=== PATIENT | female | born 1950 | race Caucasian/White ===

== ENCOUNTER 2016-11-14 17:28 | Inpatient (IN) | payer MEDICARE ==
[~2016-11-14] VITALS: Ht 160 cm; Wt 172.4 kg
[~2016-11-14 17:28] MED LIST: AGGRENOX 200/251 CAP PO; AMITRIPTYLINE150 MG PO; ASPIRIN325 MG PO; ATIVAN0.5 MG PO; BACTRIM DS TABL1 TAB; BOUDREAUXS113 GM TP; CARAFATE1 G PO; CELEXA10 MG PO; CHRONULAC30 ML PO; CINNAMON500 MG CV; CINNAMON500 MG PO; COLACE100 MG PO; CORTISPORIN OTI10 M1 RIGHT EAR; DEMADEX20 MG PO; DOXYCYCLINE HY100 M2 PO; DULCOLAX10 MG/SUPP RC; EUCERIN CREAM; FERREX 150 PLUS1 CAP PO; FLORASTOR250 MG PO; FLUTICASONE PRO16 GM NASAL; HUMALOG 30100 UNITS/; HYDROCODONE-APA1 TAB PO; INDERAL10 MG PO; INVANZ1 G/VIAL IV; IPRAT-ALBUT 0.5-3 ML UPD; LASIX40 MG PO; LEVAQUIN250 MG PO; LEVAQUIN500 MG PO; LOTRISONE CREAM45 GM TP; LOVENOX30 MG/0.3 SQ; LYRICA PO; LYRICA50 MG PO; MACROBID100 MG PO; MAXIPIME 1 GM/D51 G1 IV; MEDROL DOSE PACK4 MG PO; MINERAL OIL; MIRALAX17 GM PO; NITROFUR PO; NORCO 10/325 TA1 TA1 PO; NORVASC5 MG PO; ONDANSETRON4 MG/2 M3 IV; OXYBUTYNIN CHLOR5 MG PO; PEPCID20 MG PO; PERCOCET 10/3251 TA1 PO; PERSANTINE50 MG PO; PETROLAT; PHENERGAN25 MG RC; PRAVACHOL40 MG PO; PRILOSEC10 M1 PO; PRILOSEC20 MG PO; PROTONIX 40 MG40 MG IV; PROTONIX40 MG PO; ROBAXIN500 MG PO; ROCEPHIN 1 GM IN1 GM IM; ROCEPHIN 1 GM IN1 GM IV; ROCEPHIN 1 GM/D51 G1 IV; SENOKOT-S TABLE1 TAB PO; SODIUM BICARBO650 MG PO; SODIUM CL 0.91000 ML IV; TINDAMAX250 MG PO; TRAZODONE HCL50 MG PO; TRILEPTAL300 MG PO; TRIMETHOPRIM100 MG PO; TYLENOL 325 MG325 MG PO; VIBRAMYCIN 100100 MG PO; VITAMIN B-1000 MCG/M IM; VITAMIN B-121000 MCG SL; VITAMIN D50000 UNIT PO; ZANAFLEX4 MG PO; ZANTAC150 MG; ZANTAC150 MG PO; ZEMPLAR2 MCG PO; ZOCOR80 MG PO; ZOFRAN ODT4 MG/UDTAB PO; ZOVIRAX 5% CREAM5 GM TP; ZYLOPRIM300 MG PO; [UNRECOGNIZED DRUG - OTHER]; [UNRECOGNIZED DRUG - OTHER] RIGHT EAR
[2016-11-14 18:49] VITALS: BP 144/70; BMI 67.4
[2016-11-14 20:00] VITALS: BP 137/79
--- NOTE | 2016-11-14 20:00 | NUR ---
PT IS RESTING IN BED WITH EYES OPEN. ALERT AND ORIENTED X 4. VOICED COMPLAINT OF BACK PAIN LEVEL OF 4 AT THIS TIME. VSS. LEON CATH IS PATENT AND DRAINING TO A GRAVITY BAG. SR'S ARE UP X2 IN BED. CALL LIGHT AND BEDSIDE TABLE ARE WITHIN EASY REACH.
--- NOTE | 2016-11-14 22:29 | NUR ---
PT IS RESTING QUIETLY IN BED WITH EYES CLOSED. RESPS ARE EVEN AND UNLABORED. NO ACUTE DISTRESS NOTED.
--- NOTE | 2016-11-15 00:40 | NUR ---
RESTING IN BED WITH EYES CLOSED.
--- NOTE | 2016-11-15 04:17 | NUR ---
pt resting quietly with eyes closed, respirations regular and unlabored, hob slightly elevated. earlier this am, pt was watching tv, smiles easily, states 'can't go to sleep'
--- NOTE | 2016-11-15 05:50 | NUR ---
PT RESTING IN BED WITH EYES CLOSED. AWOKE EASILY TO VERBAL STIMULI. TOLERATED AM MED WITHOUT DIFFICULTY. NO NEEDS VOICED.
--- NOTE | 2016-11-15 07:08 | NUR ---
RESTING QUIETLY IN BED. CALL LIGHT IN REACH
[2016-11-15 08:00] VITALS: BP 164/64
--- NOTE | 2016-11-15 08:55 | NUR ---
PATIENT IN REHAB ROOM. WORKING WITH PHYSICAL THEAPIST. C/O OF BACK PAIN. PRN PAIN MEDICATION GIVEN.
[2016-11-15 09:10] LABS: BASOPHILS 0.6 % (0.0-2.0); HEMATOCRIT 31.8 % (36.0-48.0); HEMOGLOBIN 9.6 g/dL (12-16); IMMATURE GRANULOCYTES 0.7 % (0-5); LYMPHOCYTES 21.6 % (15-50); MCH 29.1 pg (26.0-34.0); MCHC 30.2 g/dL (31.0-37.0); MCV 96.4 fL (80.0-100.0); MEAN PLATELET VOLUME 10.2 fL (7.4-10.4); MONOCYTES 6.5 % (2-11); NEUTROPHILS 65.6 % (40-80); PLATELET COUNT 304 10x3/uL (130-400); RDW 15.7 % (11.5-14.5); WBC 7.1 10x3/uL (4.8-10.8)
[2016-11-15 09:15] LABS: ANION GAP 13.9 mmol/L (8-16); CALCIUM 9.8 mg/dL (8.5-10.1); CARBON DIOXIDE 22.8 mmol/L (21.0-32.0); CREATININE - SERUM 2.5 mg/dL (0.6-1.3); POTASSIUM - SERUM 3.7 mmol/L (3.5-5.1)
[2016-11-15 09:30] VITALS: Ht 160 cm; Wt 172.4 kg
--- NOTE | 2016-11-15 10:00 | NUR ---
PATIENT DOWN IN REHAB ROOM. WORKING WITH PHYSICAL THERAPIST.
--- NOTE | 2016-11-15 13:00 | NUR ---
ROCEPIN IV STARTED IN LEFT HAND PHERIAL LINE.
--- NOTE | 2016-11-15 14:15 | NUR ---
PATIENT USES WHEELCHAIR TO GET AROUND. DOES NOT WALK. IS ABLE TO TRANSFER SELF FROM WHEELCHAIR INTO BED BY SELF
--- NOTE | 2016-11-15 18:29 | NUR ---
LEON CATH EMPTIED. 17,0OOCC OF STRAW YELLOW IN CATH BAG.
--- NOTE | 2016-11-15 19:30 | NUR ---
PT IS RESTING IN BED WITH EYES CLOSED. AWOKE EASILY TO VERBAL STIMULI. ALERT AND ORIENTED X 4. DENIES ACUTE DISCOMFORT. LEON CATH IS PATENT AND DRAINING TO A GRAVITY BAG. SR'S ARE UP X 2 IN BED. CALL LIGHT AND BEDSIDE TABLE ARE WITHIN EASY REACH.
[2016-11-15 20:00] VITALS: BP 138/81
--- NOTE | 2016-11-15 20:50 | NUR ---
PT. IN BED WITH HOB UP FOR COMFORT LYING ON HER BACK WITH HER EYES CLOSED AND RESP. EVEN. CALL LIGHT IS WITHIN REACH.
--- NOTE | 2016-11-15 21:35 | NUR ---
PT IS RESTING QUIETLY IN BED WITH EYES CLOSED. RESPS ARE EVEN AND UNLABORED. NO ACUTE DISTRESS NOTED.
--- NOTE | 2016-11-16 01:20 | NUR ---
PT RESTING IN BED WITH EYES OPEN. STATES SHE ROLLED OVER, AND HER SALINE LOCK CAME OUT. NO BLEEDING NOTED.
--- NOTE | 2016-11-16 03:00 | NUR ---
RESTING IN BED WITH EYES CLOSED.
--- NOTE | 2016-11-16 07:56 | NUR ---
PATIENT AWAKE AND ORIENT X4. CALL LIGHT WITHIN REACH. VOICES NO NEEDS AT THIS TIME. BREAKFAST TRAY SET UP IN FRONT ON PATIENT
[2016-11-16 08:00] VITALS: BP 126/58
--- NOTE | 2016-11-16 10:30 | NUR ---
PATIENT RESTING IN BED WATCHING T.V. LEON CATH INTACT. PATENT. DRAINING STRAW YELLOW URINE.
--- NOTE | 2016-11-16 12:00 | NUR ---
PATIENT STATED SHE CAN NOT EAT HERE LUNCH. MEAT IS TOO HARD. PATIENT HAS MULTIPLE MISSING TEETH. ORDER PUT IN FOR TURKEY AND DRESSING. ON A RENAL DIET
--- NOTE | 2016-11-16 13:27 | NUR ---
SITTING UP IN THE BED. CALL FOR ASSISTANCE AND ICE WATER GIVEN.
--- NOTE | 2016-11-16 15:50 | NUR ---
RESTING ON BACK IN BED WITH SIDERAILS UP X2.
--- NOTE | 2016-11-16 17:09 | NUR ---
RESTING IN BED WITHOUT ANY NEEDS VOICED.
[2016-11-16 19:00] VITALS: BP 110/78
--- NOTE | 2016-11-16 19:15 | NUR ---
PT. IN BED LYING ON HER LEFT SIDE. ASSESSMENT COMPLETED. PT. C/O BACK PAIN AND REQUESTING PAIN MEDICATION. NORCO ADMINISTERED FOR RELIEF. PT. HAS NO OTHER NEEDS AT THIS TIME. CALL LIGHT WITHIN REACH.
--- NOTE | 2016-11-16 23:50 | NUR ---
PT. IN BED WITH HOB UP FOR COMFORT WITH EYES CLOSED AND RESP. EVEN. CALL LIGHT WITHIN REACH. CAROLYN TO BSD WITHOUT PROBLEMS.
[2016-11-17 06:27] LABS: BASOPHILS 0.7 % (0.0-2.0); EOSINOPHILS 5.2 % (0-7); HEMATOCRIT 29.3 % (36.0-48.0); HEMOGLOBIN 8.8 g/dL (12-16); IMMATURE GRANULOCYTES 1.2 % (0-5); LYMPHOCYTES 27.2 % (15-50); MCH 28.6 pg (26.0-34.0); MCV 95.1 fL (80.0-100.0); MEAN PLATELET VOLUME 10.3 fL (7.4-10.4); MONOCYTES 8.2 % (2-11); NEUTROPHILS 57.5 % (40-80); PLATELET COUNT 290 10x3/uL (130-400); RBC 3.08 10x6/uL (4.00-5.40); RDW 15.6 % (11.5-14.5); WBC 6.7 10x3/uL (4.8-10.8)
[2016-11-17 06:47] LABS: ANION GAP 14.4 mmol/L (8-16); CALCIUM 9.5 mg/dL (8.5-10.1); CARBON DIOXIDE 24.4 mmol/L (21.0-32.0); CREATININE - SERUM 2.7 mg/dL (0.6-1.3); POTASSIUM - SERUM 3.8 mmol/L (3.5-5.1)
[2016-11-17 10:18] VITALS: BP 138/53
--- NOTE | 2016-11-17 10:50 | NUR ---
Pt. was received at the beginning of this shift in bed awake and oriented x 3. Vital signs: Temp. 97.8, pulse 59, resp. 14, b/p 138/53, 02sat. 98%. Pt. denies any pain or discomfort. Bartlett catheter patent and draining clear yellow urine to gravity. Will be monitoring pt. and assisting prn with adl's.
--- NOTE | 2016-11-17 18:24 | NUR ---
Pt. has had an uneventful day. She went to therapy today and worked very well with the staff. No voiced complaints of pain or discomfort.
--- NOTE | 2016-11-17 19:41 | NUR ---
PT IS RESTING IN BED WITH EYES CLOSED. AWOKE EASILY TO VERBAL STIMULI. ALERT AND ORIENTED X 4. DENIES ACUTE DISCOMFORT AT THIS TIME. SR'S ARE UP X 2 IN BED. CALL LIGHT AND BEDSIDE TABLE ARE WITHIN EASY REACH.
[2016-11-17 21:08] VITALS: BP 118/63
--- NOTE | 2016-11-17 22:12 | NUR ---
PT RESTING IN BED WITH EYES CLOSED. NO DISTRESS NOTED.
--- NOTE | 2016-11-17 23:49 | NUR ---
PT IS RESTING IN BED WITH EYES CLOSED.
--- NOTE | 2016-11-18 02:24 | NUR ---
PT RESTING IN BED WITH EYES CLOSED.
--- NOTE | 2016-11-18 05:47 | NUR ---
PT RESTING QUIETLY, NO S/S OF ACUTE DISTRESS, WHEN AWAKE PATIENT IS CONVERSIVE. RESPIRATIONS REGULAR AND UNLABORED.
--- NOTE | 2016-11-18 07:00 | NUR ---
Pt. was received in bed awake and oriented x 3 at the beginning of this shift. Stable condition observed. No voiced complaints or signs of discomfort or distress. Vital signs: Temp. 97.8, pulse 57, resp. 16, b/p 123/73, 02Sat. 99%. Call light in reach. Will be monitoring her throughout this shift and assisting with adl's.
[2016-11-18 08:38] VITALS: BP 123/72
[2016-11-18 19:00] VITALS: BP 161/64
--- NOTE | 2016-11-18 20:00 | NUR ---
PT IS RESTING IN BED WATCHING TV. ALERT AND ORIENTED X 4. DENIES ACUTE PAIN OR DISCOMFORT. VSS. NO NEEDS VOICED. LEON CATH IS PATENT AND DRAINING TO A GRAVITY BAG. SR'S ARE UP X2 IN BED. CALL LIGHT AND BEDSIDE TABLE ARE WITHIN EASY REACH.
--- NOTE | 2016-11-18 22:01 | NUR ---
PT ASSISTED WITH A SHOWER BY ACCESS SPECIALIST. NO NEEDS VOICED.
--- NOTE | 2016-11-19 00:21 | NUR ---
RESTING IN BED WITH EYES CLOSED.
--- NOTE | 2016-11-19 02:59 | NUR ---
RESTING QUIETLY IN BED WITH EYES CLOSED.
--- NOTE | 2016-11-19 03:56 | NUR ---
PT RESTING QUIETLY, NO S/S OF ACUTE DISTRESS. RESPIRATIONS REGULAR AND UNLABORED.
[2016-11-19 06:59] LABS: BASOPHILS 0.6 % (0.0-2.0); EOSINOPHILS 5.5 % (0-7); HEMATOCRIT 28.5 % (36.0-48.0); HEMOGLOBIN 8.7 g/dL (12-16); IMMATURE GRANULOCYTES 1.1 % (0-5); LYMPHOCYTES 28.6 % (15-50); MCH 28.9 pg (26.0-34.0); MCHC 30.5 g/dL (31.0-37.0); MCV 94.7 fL (80.0-100.0); MEAN PLATELET VOLUME 10.4 fL (7.4-10.4); MONOCYTES 9.6 % (2-11); NEUTROPHILS 54.6 % (40-80); PLATELET COUNT 285 10x3/uL (130-400); RBC 3.01 10x6/uL (4.00-5.40); RDW 15.6 % (11.5-14.5); WBC 6.2 10x3/uL (4.8-10.8)
[2016-11-19 07:22] LABS: ANION GAP 13.6 mmol/L (8-16); CALCIUM 9.3 mg/dL (8.5-10.1); CARBON DIOXIDE 26.1 mmol/L (21.0-32.0); CREATININE - SERUM 2.8 mg/dL (0.6-1.3); POTASSIUM - SERUM 3.7 mmol/L (3.5-5.1)
--- NOTE | 2016-11-19 07:28 | NUR ---
RESTING QUIETLY IN BED. CALL LIGHT IN REACH
[2016-11-19 08:15] VITALS: BP 116/62
--- NOTE | 2016-11-19 08:15 | NUR ---
PT RESTING IN BED WITH EYES OPEN CALL LIGHT IN REACH PT EATING BREAKFAST
--- NOTE | 2016-11-19 16:34 | RHP ---
PATIENT: JAMIE BELL MEDICAL RECORD: [id number] ACCOUNT: [id number] LOCATION:[facility]1113 : 46 ADMISSION DATE: 11/14/16 REHABILITATION HISTORY AND PHYSICAL EXAMINATION POST ADMISSION PHYSICIAN EXAMINATION Post-admission Physical Exam and History and Physical DATE OF ADMISSION: 11/14/2016 HISTORY OF PRESENT ILLNESS: The patient is a 66-year-old female patient admitted to rehab with a working diagnosis uremic myopathy, acute kidney injury with chronic kidney stage IV kidney disease. The patient is a 66-year-old female patient who was brought to the inpatient rehab secondary to uremic myopathy. She is a morbidly obese white female who was brought to the ED and was admitted on November 08 with acute mental status changes and fever. She has a history of urinary retention and chronic Bartlett. The Bartlett had purulent urine and sediment debris. The Bartlett was changed out and urine culture was collected. She was admitted with acute mental status changes, UTI and acute kidney injury on chronic kidney injury. ____ history includes hypertension, CHF, and coronary artery disease. Her creatinine upon admit was 4.4, baseline is around to ____. She was on torsemide at home. On exam, the patient was very lethargic and difficult to arouse. CT of her head showed no acute findings. Chest x-ray showed mild cardiomegaly and central vascular congestion and interstitial prominence suggesting mild congestive heart failure. Urine culture was positive for E. coli resistant to Levaquin, but sensitive to Rocephin. Blood cultures grew out Gram-positive rods with sensitivity pending. Her creatinine was down, but not at baseline. She is back on her baseline as far as mental status goes. Prior to admit, she was moderately independent with rolling walker at home for mobility and ADLs. Currently, she is moderate to max assist for ADLs and mobility. She has weakness in all extremities and difficulty going from a sitting to a standing position or from a bed to a chair, definitely will benefit from inpatient rehabilitation. COMORBIDITIES: In this patient include chronic kidney stage IV disease, acute kidney injury, left kidney hydronephrosis, acute mental status changes, neuropathy, bradycardia, CHF, history of MO, pyelonephritis, chest pain, coronary artery disease, non-insulin dependent diabetes mellitus, anemia due to chronic disease, fibromyalgia, anxiety, depression, and obesity. PAST MEDICAL HISTORY: Significant for chronic UTIs, chronic kidney disease, coronary artery disease, non-insulin dependent diabetes mellitus, CHF, fibromyalgia, anxiety, depression and obesity. PAST SURGICAL HISTORY: Includes cataracts, appendectomy, cholecystectomy, hysterectomy, PTCA with stents. ALLERGIES: PENICILLIN AND CLONIDINE. CURRENT MEDICATIONS: Include ____ daily. She is on Rocephin a gram q.24 hours, Protonix 40 mg daily, Niferex daily, torsemide 20 mg daily, Zemplar 1 mcg daily. She is on oxybutynin 5 mg daily. She is on Colace 100 mg daily, citalopram 20 mg daily, amlodipine 5 mg daily, allopurinol 300 mg daily, trazodone 25 mg q.h.s., tizanidine 4 mg b.i.d. p.r.n. spasms, Inderal 10 mg b.i.d., Lyrica 75 mg b.i.d., Pravachol 40 mg at bedtime, Trileptal 300 mg b.i.d. She is on lactulose HISTORY AND PHYSICAL [id number] BELL,JAMIE solution daily, DuoNeb updrafts as needed, Brule 1 tab q.i.d. p.r.n., Pepcid 20 mg q.h.s., aspirin/dipyridamole or Aggrenox 1 cap b.i.d. and acetaminophen as needed for fever. HABITS: No alcohol or tobacco use. FAMILY HISTORY: Noncontributory. SOCIAL HISTORY: The patient would like to return back home and get back to her prior level of functioning if possible. REVIEW OF SYSTEMS: GENERAL: Does complain of weakness and fatigue. HEENT: Denies cold, cough, or congestion. CARDIOVASCULAR: Denies chest pain. PHYSICAL EXAMINATION: VITAL SIGNS: Stable, afebrile. GENERAL: Morbidly obese female in no acute distress, alert upon exam. HEENT: Normocephalic and atraumatic. Mucosa moist. NECK: Supple. No lymphadenopathy. LUNGS: Clear, although she does have decreased breath sounds. HEART: Regular rate and rhythm. ABDOMEN: Benign. EXTREMITIES: No clubbing, cyanosis or edema. NEUROLOGIC: Intact. LABORATORY DATA: Her white count is 7.0, H&H of 10 and 31 and platelet count is noted to be 304. Sodium is 140, potassium 3.7, BUN and creatinine of 37 and 2.5. ASSESSMENT: This is a 66-year-old female patient admitted to rehab with a working diagnosis of uremic myopathy. The patient has potential to make improvement. We instituted the following multidisciplinary therapies including to, but not limited to physical, occupational, respiratory, speech, nutritional services, prosthetics and orthotics. Given her complex condition and risk for more complications, rehabilitation services cannot be provided at a low level of care such as a custodial facility. PLAN: 1. Admit to [facility] rehab for intensive inpatient therapy to include the following disciplines: A. Physical therapy to improve gait, all transfer skills and bed mobility to a modified independent level. B. Occupational therapy to improve activities of daily living to a modified independent level. C. Case management to assist with discharge planning and placement options. D. Nutrition to assist with nutritional needs. E. Rehabilitation nursing to assist in monitoring the patient's underlying medical conditions and to assist with any type of bowel or bladder management. 2. The patient's current medication and medical care will be continued. 3. The patient will be placed on standard fall precautions. 4. The patient's estimated length of stay is approximately 7-10 days. 5. Discuss this patient during care team staff meeting this week. HISTORY AND PHYSICAL [id number] JAMIE BELL TRANSINT:[id number] Voice Confirmation ID: [id number] DOCUMENT ID: [id number] JONATHAN ALMAZAN MD at 1634 CC: [id number] DICTATION DATE: 11/15/16 1411 PEDIATRIC PSYCHOLOGIST: 11/15/16 1503 ADM IN [facility] [address] [id number]
--- NOTE | 2016-11-19 17:02 | NUR ---
PT RESTING IN BED WITH EYES OPEN CALL LIGHT IN REACH WILL MONITER
--- NOTE | 2016-11-19 17:12 | NUR ---
CARE TEAM MEETING: PATIENT TENATIVE DISCHARGE DATE IS 12/01/16. PCP IS DR. SHORT, SHE USSES VIKTOR WILSON FOR HOME ASSIST. HAS SHOWER CHAIR, WALKER AND WHEELCHAIR. WILL CONTINUE TO FOLLOW WITH PATIENT UNTIL DISCHARGED
[2016-11-19 19:00] VITALS: BP 148/55
--- NOTE | 2016-11-19 19:10 | NUR ---
PATIENT IN BED, RESTING QUIETLY, EYES CLOSED.
--- NOTE | 2016-11-19 21:45 | NUR ---
ASSESSMENT AND HS MEDS COMPLETE.
--- NOTE | 2016-11-19 22:40 | NUR ---
BED ALARM GOING OFF, THIS RN TO ROOM, PT IS SITTING ON SIDE OF BED, PT STATES "I HAVE A CRAMP IN MY LEG", PT IS RUBBING RIGHT LEG, PT LAID BACK DOWN IN BED, REQUESTED AND APPLIED BUTT PASTE TO BOTH LEGS, PT DENIES FURTHER NEEDS AT THIS TIME, BED ALARM BACK ON
--- NOTE | 2016-11-19 23:05 | NUR ---
PT IMAGING CENTER MANAGER LIGHT, ADM NORCO PO PER MD ORDERS, SEE EMAR, PT DENIES FURTHER NEEDS
--- NOTE | 2016-11-20 00:16 | NUR ---
PT RESTING WITH EYES CLOSED, RESP QUIET, NO DISTRESS NOTED, LEFT UNDISTURBED AT THIS TIME
--- NOTE | 2016-11-20 02:03 | NUR ---
PT RESTING WITH EYES CLOSED, RESP QUIET, NO DISTRESS NOTED, LEFT UNDISTURBED AT THIS TIME
--- NOTE | 2016-11-20 04:14 | NUR ---
PT RESTING WITH EYES CLOSED, RESP QUIET, NO DISTRESS NOTED, LEFT UNDISTURBED AT THIS TIME
--- NOTE | 2016-11-20 06:03 | NUR ---
PT RESTING WITH EYES CLOSED, AROUSES TO SOFT VERBAL STIMULATION, ADM PROTONIX PO PER MD ORDERS, SEE EMAR, PT REQUESTED AND SERVED [facility] H20, PT DENIES FURTHER NEEDS OR PAIN AT THIS TIME
--- NOTE | 2016-11-20 07:00 | NUR ---
SHIFT REPORT TO DAY SHIFT
[2016-11-20 09:00] VITALS: BP 131/56
--- NOTE | 2016-11-20 09:36 | NUR ---
SITTING IN BED READING THE PAPER.
--- NOTE | 2016-11-20 11:21 | NUR ---
SITTING IN WHEELCHAIR WORKING WITH THERAPY.
--- NOTE | 2016-11-20 13:34 | NUR ---
SITTING IN WHEELCHAIR IN THE GYM WORKING W THERAPY.
--- NOTE | 2016-11-20 13:53 | NUR ---
Nutrition Follow Up: Chart reviewed. Diet: Renal PO Intake: 91% (9 meal avg) No new wt No BM recorded since admit I<O Meds: Demadex Labs noted Pt with excellent po intake at this time. Rec continue current diet. RD following.
--- NOTE | 2016-11-20 15:48 | NUR ---
SITTING IN WHEELCHAIR IN ROOM WITH CALLIGHT IN REACH.
--- NOTE | 2016-11-20 17:48 | NUR ---
SITTING IN WHEELCHAIR WITHOUT ANY NEEDS VOICED.
--- NOTE | 2016-11-20 19:30 | NUR ---
PT RESTING, EYES CLOSED. BED LOW. CL INREACH. WCTM.
[2016-11-20 19:42] VITALS: BP 136/54
--- NOTE | 2016-11-20 21:58 | NUR ---
PT TOOK HS MEDS WITHOUT DIFFICULTY. PT DENIES FURTHUR NEEDS AT THIS TIME. BED LOW. CL IN REACH. WCTM.
--- NOTE | 2016-11-20 23:41 | NUR ---
PT RESTING, EYES CLOSED. BED LOW. CL IN REACH. WCTM
--- NOTE | 2016-11-21 01:15 | NUR ---
PT. SUMMONDED NURSE TO ROOM DUE TO HER THROWING UP HER DINNER ALL OVER THE SIDE OF THE BED AND FLOOR. PT. CLEANSED UP AND FRESH BEDCLOTHING AND LINENS CHANGED. FLOOR AND LEON BAG CLEANED UP. PT'S NURSE INFORMED OF SITUATION. PT. HAS NO RX ORDERED FOR N/S. NOTE LEFT FOR MD TO ADDRESS NEED.
--- NOTE | 2016-11-21 02:43 | NUR ---
PT STILL C/O NAUSEA. PT STATES SHE HAS NOT THROWN UP ANYMORE. WCTM. BED LOW. CL IN REACH.
--- NOTE | 2016-11-21 04:01 | NUR ---
PT RESTING, EYES CLOSED. BED LOW. CLIN REACH. WCTM.
--- NOTE | 2016-11-21 06:49 | NUR ---
PT STATES SHE HAS HAD NO MORE VOMITING BUT STILL FEELS NAUSEAUS. WILL PASS ON TO DAY NURSE AND NOTE LEFT FOR DR ALMAZAN. CL IN REACH. BED LOW.
[2016-11-21 07:03] LABS: MCH 30.9 pg (26.0-34.0); MCV 96.6 fL (80.0-100.0); MEAN PLATELET VOLUME 9.9 fL (7.4-10.4); PLATELET COUNT 256 10x3/uL (130-400); RDW 12.4 % (11.5-14.5)
[2016-11-21 08:23] LABS: ANION GAP 13.3 mmol/L (8-16); CALCIUM 9.3 mg/dL (8.5-10.1); CREATININE - SERUM 3.4 mg/dL (0.6-1.3)
[2016-11-21 08:25] LABS: HEMOGLOBIN 9.1 g/dL (12-16); RBC 3.14 10x6/uL (4.00-5.40); WBC 9.8 10x3/uL (4.8-10.8)
[2016-11-21 08:26] LABS: LYMPHOCYTES 13.1 % (15-50); MONOCYTES 5.1 % (2-11); NEUTROPHILS 77.6 % (40-80); POTASSIUM - SERUM 4.3 mmol/L (3.5-5.1)
[2016-11-21 08:27] LABS: BASOPHILS 0.1 % (0.0-2.0); EOSINOPHILS 3.8 % (0-7); IMMATURE GRANULOCYTES 0.3 % (0-5)
--- NOTE | 2016-11-21 09:15 | NUR ---
PT VOMITED UP UNDIGESTED FOOD. PRN ZOFRAN GIVEN. INCONTINENT OF LG SOF BROWN STOOL. CALLIGHT IN REACH.
--- NOTE | 2016-11-21 11:35 | NUR ---
SITTING IN BED AND NO NAUSEA AND VOMITING NOTED.
[2016-11-21 12:17] VITALS: BP 140/52
--- NOTE | 2016-11-21 15:37 | NUR ---
RESTING IN BED AND INCONTINENT OF LOOSE BROWN STOOL.
--- NOTE | 2016-11-21 17:02 | NUR ---
RESTING IN BED WITH CALLIGHT IN REACH.
[2016-11-21 20:00] VITALS: BP 148/67
--- NOTE | 2016-11-21 20:00 | NUR ---
PT RESTING IN BED WATCHING TV. ALERT AND ORIENTED X 4. DENIES DISCOMFORT AT THIS TIME. DENIES N/V. VSS. LEON CATH IS PATENT AND DRAINING TO A GRAVITY BAG. SR'S ARE UP X 2 IN BED. CALL LIGHT AND BEDSIDE TABLE ARE WITHIN EASY REACH.
--- NOTE | 2016-11-21 21:49 | NUR ---
PT IS RESTING IN BED WITH EYES OPEN. NO NEEDS VOICED.
--- NOTE | 2016-11-21 23:41 | NUR ---
RESTING QUIETLY IN BED WITH EYES CLOSED. RESPS ARE EVEN AND UNLABORED. NO ACUTE DISTRESS NOTED.
--- NOTE | 2016-11-22 00:17 | NUR ---
PT. IN BED WITH HOB UP FOR COMFORT AND IS WATCHING TV. PT. DENIES ANY PROBLEMS AND HAS NO MORE N/V SINCE LAST NIGHT. LEON TO BSD WITHOUT ANY PROBLEMS. CALL LIGHT WITHIN REACH.
--- NOTE | 2016-11-22 02:09 | NUR ---
RESTING IN BED WITH EYES CLOSED.
--- NOTE | 2016-11-22 06:24 | NUR ---
PT RESTING IN BED WITH EYES CLOSED. AWOKE EASILY TO VERBAL STIMULI. NO NEEDS VOICED.
[2016-11-22 07:00] VITALS: BP 129/48
--- NOTE | 2016-11-22 08:00 | NUR ---
SHIFT ASSMT COMPLETED.DENIES NEEDS.FC PATENT.BREAKFAST GIVEN.NO NAUSEA NOTED THIS AM.
--- NOTE | 2016-11-22 12:00 | NUR ---
EATING LUNCH.DENIES NEEDS.CL IN REACH.
--- NOTE | 2016-11-22 19:30 | NUR ---
PT TALKING ON PHONE, DENIES ANY NEEDS. LYING IN BED, RESPIRATIONS REGULAR AND UNLABORED.
[2016-11-22 20:43] VITALS: BP 120/54
--- NOTE | 2016-11-22 23:56 | NUR ---
PT C/O OF ITCHING IN LABIA REGION, APPLIED NYSTATIN PER PATIENT REQUEST. PT DISAPPOINTED SHE HAS NO CHILE FOR THIS NEW YEARS.
--- NOTE | 2016-11-23 01:44 | NUR ---
PT STATES SHE HER BACK IS KILLING HER. MEDICATED WITH HYDROCODONE PER ORDER, PT LYING ON RIGHT SIDE.
[2016-11-23 07:00] VITALS: BP 118/54
--- NOTE | 2016-11-23 08:00 | NUR ---
SHIFT ASSMT COMPLETED.DENIES NEEDS.BREAKFAST TRAY GIVEN.
--- NOTE | 2016-11-23 12:00 | NUR ---
SITTING UP IN BED EATING.DENIES NEEDS.
--- NOTE | 2016-11-23 16:00 | NUR ---
DENIES NEEDS.CL IN REACH.
[2016-11-23 19:42] VITALS: BP 132/55
--- NOTE | 2016-11-23 20:11 | NUR ---
PT STATES SHE ISN'T SURE HOW HER DAY WAS, SHE STATED SHE DIDN'T HAVE ANY BLACK EYED PEAS. PT STATES SHE WOULD LIKE A PAIN MEDICATION WITH HER HS MEDS.
--- NOTE | 2016-11-23 22:50 | NUR ---
PT RESTNG WITH EYES CLOSED, RESPIRATIONS REGULAR AND UNLABORED.
--- NOTE | 2016-11-24 04:54 | NUR ---
pt resting with eyes closed, no s/s of acute distress. pt prefers to sleep with door closed.
[2016-11-24 06:02] LABS: BASOPHILS 0.3 % (0.0-2.0); EOSINOPHILS 5.4 % (0-7); HEMATOCRIT 29.2 % (36.0-48.0); HEMOGLOBIN 8.9 g/dL (12-16); IMMATURE GRANULOCYTES 0.4 % (0-5); LYMPHOCYTES 23.1 % (15-50); MCH 29.5 pg (26.0-34.0); MCHC 30.5 g/dL (31.0-37.0); MCV 96.7 fL (80.0-100.0); MEAN PLATELET VOLUME 10.9 fL (7.4-10.4); MONOCYTES 8.6 % (2-11); NEUTROPHILS 62.2 % (40-80); PLATELET COUNT 238 10x3/uL (130-400); RBC 3.02 10x6/uL (4.00-5.40); RDW 15.6 % (11.5-14.5); WBC 7.5 10x3/uL (4.8-10.8)
[2016-11-24 06:32] LABS: ANION GAP 11.5 mmol/L (8-16); CALCIUM 9.4 mg/dL (8.5-10.1); CARBON DIOXIDE 26.6 mmol/L (21.0-32.0); POTASSIUM - SERUM 4.1 mmol/L (3.5-5.1)
--- NOTE | 2016-11-24 08:15 | NUR ---
PT RESTING IN BED WITH EYES OPEN CALL LIGHT IN REACH PT EATING BREAKFAST TOLERATING WELL WILL MONITER
[2016-11-24 08:45] VITALS: BP 117/49
--- NOTE | 2016-11-24 13:57 | NUR ---
PT UP IN HALLWAY WALKING WITH THERAPY TOLERATING WELL WILL MONITER
[2016-11-24 21:48] VITALS: BP 146/60
--- NOTE | 2016-11-24 21:51 | NUR ---
PT HS MEDS TAKEN WITHOUT DIFFICULTY. SCRUBBED PT'S BOTTOM CLEAN OF OLD BUTT PASTE AND CALMOSETPINE BEFORE APPLYING NEW. APPLIED NYSTATIN TO ABD FOLDS. PT DENIES NEEDS AT THIS TIME. BED LOW. CL IN REACH.
--- NOTE | 2016-11-24 23:42 | NUR ---
PT RESTING, EYES CLOSED. BED LOW. CL IN REACH.
--- NOTE | 2016-11-25 02:36 | NUR ---
PT RESTING, EYES CLOSED. BED LOW. CLI N REACH. WCTM.
--- NOTE | 2016-11-25 07:37 | NUR ---
RESTING QUIETLY IN BED. CALL LIGHT IN REACH
--- NOTE | 2016-11-25 08:15 | NUR ---
PT RESTING IN BED WITH EYES OPEN CALL LIGHT IN REACH NO PROBLEMS WILL MONITER PT EATING BREAKFAST TOLERATING WELL WILL MONITER
[2016-11-25 08:35] VITALS: BP 119/46
--- NOTE | 2016-11-25 14:59 | NUR ---
PT RESTING IN BED WITH EYES OPEN CALL LIGHT IN REACH NO PROBLEMS WILL MONITER
--- NOTE | 2016-11-25 19:25 | NUR ---
PT. IN BED WITH HOB UP FOR COMFORT AND WATCHING TV. LEON TO BSD WITHOUT ANY PROBLEMS. ASSESSMENT COMPLETED. PT. REQUESTING PAIN PILL AND MUSCLE RELAXER WITH NIGHT TIME MEDICATIONS TONIGHT. NO OTHER NEEDS VOICED AND SHE HAS HER CALL LIGHT WITHIN REACH.
--- NOTE | 2016-11-25 23:23 | NUR ---
PT. IN BED AND IS STILL WATCHING TV. HOB UP FOR COMFORT AND FOB ALSO ELEVATED TO HELP PREVENT PT. FROM SLIDING DOWN IN THE BED. LEON TO BSD WITHOUT PROBLEMS. PT. HAS NO VOICED NEEDS AT THIS TIME AND HER CALL LIGHT IS WITHIN REACH.
[2016-11-25 23:42] VITALS: BP 126/54
[2016-11-26 05:50] LABS: BASOPHILS 0.3 % (0.0-2.0); EOSINOPHILS 5.8 % (0-7); HEMATOCRIT 28.4 % (36.0-48.0); HEMOGLOBIN 8.6 g/dL (12-16); IMMATURE GRANULOCYTES 0.3 % (0-5); LYMPHOCYTES 25.6 % (15-50); MCH 29.3 pg (26.0-34.0); MCHC 30.3 g/dL (31.0-37.0); MCV 96.6 fL (80.0-100.0); MONOCYTES 9.7 % (2-11); NEUTROPHILS 58.3 % (40-80); PLATELET COUNT 225 10x3/uL (130-400); RBC 2.94 10x6/uL (4.00-5.40); RDW 15.5 % (11.5-14.5); WBC 6.8 10x3/uL (4.8-10.8)
[2016-11-26 06:22] LABS: ANION GAP 13.6 mmol/L (8-16); CALCIUM 8.7 mg/dL (8.5-10.1); CARBON DIOXIDE 25.4 mmol/L (21.0-32.0); CREATININE - SERUM 3.2 mg/dL (0.6-1.3)
--- NOTE | 2016-11-26 06:24 | NUR ---
PT. IN BED WITH HOB UP FOR COMFORT WITH EYES CLOSED AND RESP. EVEN. PT. SLEEPS WITH HER TV ON SHE DOES THIS AT HOME, SHE REPORTED EARLIER. CALL LIGHT WITHIN REACH.
--- NOTE | 2016-11-26 09:30 | NUR ---
SITTING UP IN BED WITHOUT ANY NEEDS VOICED.
[2016-11-26 09:59] VITALS: BP 118/53
--- NOTE | 2016-11-26 11:16 | NUR ---
SITTING IN WHEELCHAIR IN GYM WORKING WITH THERAPY.
--- NOTE | 2016-11-26 13:20 | NUR ---
SITTING IN WHEELCHAIR EATING LUNCH.
--- NOTE | 2016-11-26 15:35 | NUR ---
SITTING IN WHEELCHAIR READING A BOOK.
--- NOTE | 2016-11-26 17:55 | NUR ---
RESTING IN BED EATING DINNER.
--- NOTE | 2016-11-26 19:00 | NUR ---
PATIENT IN BED. QUIETLY EXPRESSES DISMAY AT THE CONSTANT DISTURBANCE BY HER ROOMMATE WHO IS CALLING OUT HELP FREQUENTLY. TOLD HER I WILL TRY TO GET HER ROOMMATE TO SETTLE DOWN AND STOP DISTURBING HER WITH HER LOUD AND DISRUPTIVE BEHAVIOR.
[2016-11-26 19:45] VITALS: BP 154/57
--- NOTE | 2016-11-26 20:00 | NUR ---
HAVE BEEN IN PATIENT'S ROOM AT LEAST 6 TIMES IN THE PAST HOUR TO ANSWER CALL LIGHTS AND SHOUTING BY HER ROOMMATE. MS. BELL IS TRYING TO BE VERY PATIENT. TOLD HER IF HER ROOMMATE'S BEHAVIOR DOES NOT LIVAN SOON, I WILL MOVE MS BELL TO ANOTHER ROOM FOR SOME WELL-DESERVED PEACE AND QUIET. SAID SHE WILL WAIT AND SEE WITH ME.
--- NOTE | 2016-11-26 21:55 | NUR ---
ASSESSMENT AND HS MEDS COMPLETE. GAVE PATIENT NORCO 10/325 X1 TAB AND ZANAFLEX 4MG PO FOR PACK PAIN OF LEVEL 8/10. APPLIED ORDERED TOPICAL MEDICATIONS. ROOMMATE WAS QUIET FOR ABOUT 40 MINUTES SHE DOZED BUT IS WINDING UP AGAIN. TOLD MS. BELL THAT I AM GOING TO DELIVER MEDICATIONS TO HER ROOMMATE AND 1 MORE PATIENT AND THEN I WILL MOVE HER TO ROOM 1111A.
--- NOTE | 2016-11-26 23:00 | NUR ---
MOVED PATIENT TO ROOM 1111, BED SPACE A FOR REASONS NOTED PREVIOUSLY. INTERNAL REVENUE AGENT FINISHED MOVEING PATIENT'S BELONGINGS AND FURNISHINGS FROM 1113A TO 1111A. PATIENT EXPRESSES HER GRATITUDE FOR THE MOVE. APOLOGIZED I HAD TO DELAY SO LONG DUE TO THE EXIGENCIES OF OTHER PATIENTS.
--- NOTE | 2016-11-27 | NUR ---
RESTING QUIETLY IN BED, EYES CLOSED. NO DISTRESS NOTED.
--- NOTE | 2016-11-27 01:50 | NUR ---
IN BED, EYES CLOSED. AUDIBLE RESPIRATIONS ARE UNLABORED.
--- NOTE | 2016-11-27 04:50 | NUR ---
IN BED, EYES CLOSED. RESPIRING QUIETLY.
--- NOTE | 2016-11-27 06:20 | NUR ---
GAVE PATIENT SCHEDULED PO MEDS. DENIES NEEDS. SAYS SHE DOES NOT WANT TO PUT ON HER OWN HOUSEDRESS FOR DISCHARGE UNTIL JUST BEFORE SHE LEAVES THE UNIT LATER TODAY.
--- NOTE | 2016-11-27 07:00 | NUR ---
PT WAS RECEIVED THIS MORNING IN BED AT THE BEGINNING OF THIS SHIFT. STABLE CONDITION OBSERVED. VITAL SIGNS; WNL. LEON CATHETER IS PATENT AND DRAINING YELLOW URINE TO GRAVITY. WILL BE MONITORING HER THROUGHOUT THIS SHIFT AND ASSISTING HER WITH ADL'S. SHE WILL BE DISCHARGING TODAY TO HOME. NO COMPLAINTS OF PAIN OR DISCOMFORT OR SIGNS OF DISTRESS.
[2016-11-27 08:00] VITALS: BP 129/50
--- NOTE | 2016-11-27 08:36 | NUR ---
PATIENT DISCHARGING HOME TODAY WITH FAMILY. NO NEW DME NEEDED AT THIS TIME. [facility] WILL RESUME OF PATIENT AT HOME WITH NURSING, PT, OT.APPOINTMENT: DR. SHORT/EDWIN 12/03/16 @ 10:00. PATIENT CHOICE FORM FOR HOME HEALTH AND [facility] FORM SIGNED AND FILED IN CHART. ORDERS HAVE BEEN FAXED WITH CONFORMATION RECIEVED
--- NOTE | 2016-11-27 15:03 | NUR ---
Pt. was discharged out of Rehab Unit in route to home with granddaughter via personal car. She was given her discharge paperwork and took with her her personal belongings. Her discharge medications were phoned into [facility] in [place]. Stable condition upon leaving.
== END 2016-11-27 15:07 | disposition home health service (06) | DRG 92 ==
LOC: D.REHAB 17:28
PROVIDERS: ADMIT Emergency Medicine
DX: G72.89 Other specified myopathies (principal); N18.4 Chronic kidney disease, stage 4 (severe); N17.9 Acute kidney failure, unspecified; N13.30 Unspecified hydronephrosis; N12 Tubulo-interstitial nephritis, not specified as acute or chronic; Z68.44 Body mass index [BMI] 60.0-69.9, adult; I13.10 Hypertensive heart and chronic kidney disease without heart failure, with stage 1 through stage 4 chronic kidney disease, or unspecified chronic kidney disease; R41.82 Altered mental status, unspecified; G62.9 Polyneuropathy, unspecified; R00.1 Bradycardia, unspecified; E11.22 Type 2 diabetes mellitus with diabetic chronic kidney disease; D63.1 Anemia in chronic kidney disease; M79.7 Fibromyalgia; F41.8 Other specified anxiety disorders; E66.01 Morbid (severe) obesity due to excess calories

== ENCOUNTER 2016-12-11 12:38 | Inpatient (IN) | payer MEDICARE ==
[~2016-12-11] VITALS: Ht 160 cm; Wt 195.0 kg
[2016-12-11 13:08] LABS: BASOPHILS 0.5 % (0.0-2.0); EOSINOPHILS 5.3 % (0-7); HEMATOCRIT 32.5 % (36.0-48.0); HEMOGLOBIN 10.1 g/dL (12-16); IMMATURE GRANULOCYTES 0.2 % (0-5); LYMPHOCYTES 22.8 % (15-50); MCH 29.4 pg (26.0-34.0); MCHC 31.1 g/dL (31.0-37.0); MCV 94.8 fL (80.0-100.0); MONOCYTES 7.5 % (2-11); NEUTROPHILS 63.7 % (40-80); PLATELET COUNT 206 10x3/uL (130-400); RBC 3.43 10x6/uL (4.00-5.40); RDW 15.3 % (11.5-14.5); WBC 6.2 10x3/uL (4.8-10.8)
[2016-12-11 13:21] LABS: ALBUMIN 3.2 g/dL (3.4-5.0); ANION GAP 12.9 mmol/L (8-16); BILIRUBIN - TOTAL 0.31 mg/dL (0.2-1.3); CALCIUM 9.3 mg/dL (8.5-10.1); CARBON DIOXIDE 27.4 mmol/L (21.0-32.0); CREATININE - SERUM 3.4 mg/dL (0.6-1.3); POTASSIUM - SERUM 4.3 mmol/L (3.5-5.1); PROTEIN - SERUM 7.6 g/dL (6.4-8.2)
[2016-12-11 13:23] LABS: APTT 29.7 SECONDS (22.8-39.4); INR 1.15 (0.85-1.17); PROTIME 14.6 SECONDS (11.6-15.0)
[2016-12-11 13:58] LABS: CREATINE KINASE 80 UL (21-215)
[2016-12-11 14:02] LABS: TROPONIN-I < 0.017 ng/mL (0.000-0.060)
--- NOTE | 2016-12-11 17:00 | NUR ---
ADMITTED TO ROOM 2225 VIA CART FROM ER S/O OFCARE GONE OVER WITH PT IV FLUIDS IN RT WRIST S/L AT PRESENT PTS LEON HAS TO BE REMOVED AND REPLACED WITHNEW LEON.
[2016-12-11 17:36] LABS: CKMB 0.3 U/L (0.0-3.6); CREATINE KINASE 82 UL (21-215)
[2016-12-11 17:39] LABS: TROPONIN-I < 0.017 ng/mL (0.000-0.060)
[2016-12-11 17:56] VITALS: BP 128/68; BMI 594.8
--- NOTE | 2016-12-11 18:14 | NUR ---
REQ MEDS FOR HEADACHE ALREADY HAD M/S TO SOON FOR MORE.
--- NOTE | 2016-12-11 18:25 | NUR ---
A 16 FR LEON INSERTED USING ST ST.AT PRESENT SPECE OBTAINED AND TO LAB.
--- NOTE | 2016-12-11 20:00 | NUR ---
PT RESTING QUIETLY WATCHING TV. PT ATTEMPTS TO COMMUNICATE VERBALLY BUT IS UNABLE TO GET SOME WORDS OUT CLEARLY. SHE IS ABLE TO ARTICULATE SYLLABLES FOR THE NURSE TO ASK YES OR NO QUESTIONS. NO S/S OF DISTRESS NOTED AT THIS TIME. CAROLYN CALDERÓN PRESENT. CALL LIGHT IN REACH, BED IN LOWEST POSITION, ASSESSMENT PER FLOWSHEET. M
[2016-12-11 22:41] VITALS: BP 120/54
[2016-12-11 23:59] LABS: CREATINE KINASE 75 UL (21-215); TROPONIN-I 0.017 ng/mL (0.000-0.060)
[2016-12-12] VITALS: BP 146/47
--- NOTE | 2016-12-12 00:20 | NUR ---
PT TURNED AND REPOSITIONED FOR COMFORT AT THIS TIME. DENIES ANY NEEDS. BED IN LOWEST POSITION, CALL LIGHT IN REACH.
--- NOTE | 2016-12-12 00:55 | NUR ---
EYES CLOSED RESPIRATIONS WITH EASE AND UNLABORED. SR UP X2 CALL LIGHT WITHIN REACH.
[2016-12-12 01:35] LABS: CKMB 0.4 U/L (0.0-3.6)
[2016-12-12 05:00] VITALS: BP 113/48
[2016-12-12 05:01] LABS: BASOPHILS 0.4 % (0.0-2.0); EOSINOPHILS 6.7 % (0-7); HEMATOCRIT 33.2 % (36.0-48.0); IMMATURE GRANULOCYTES 0.3 % (0-5); LYMPHOCYTES 31.5 % (15-50); MCH 29.1 pg (26.0-34.0); MCHC 30.1 g/dL (31.0-37.0); MCV 96.5 fL (80.0-100.0); MEAN PLATELET VOLUME 10.7 fL (7.4-10.4); MONOCYTES 9.9 % (2-11); NEUTROPHILS 51.2 % (40-80); RBC 3.44 10x6/uL (4.00-5.40); RDW 15.4 % (11.5-14.5); WBC 6.7 10x3/uL (4.8-10.8)
[2016-12-12 05:11] LABS: PLATELET COUNT 255 10x3/uL (130-400)
[2016-12-12 05:50] LABS: CALC OSMOLALITY 292 mosm/kg (275-300); CALCIUM 9.9 mg/dL (8.5-10.1); CARBON DIOXIDE 25.2 mmol/L (21.0-32.0); CHLORIDE - SERUM 108 mmol/L (98-107); CHOL - HDL RATIO 3.7 ratio (2.3-4.1); CHOLESTEROL, TOTAL 170 mg/dL (0-200); CKMB 0.4 U/L (0.0-3.6); CREATINE KINASE 81 UL (21-215); CREATININE - SERUM 3.3 mg/dL (0.6-1.3); GLUCOSE 88 mg/dL (74-106); HDL CHOLESTEROL 46 mg/dL (32-96); LDL CHOLESTEROL 100 mg/dL (0-100); LDL-HDL RATIO 2.2 ratio (1.5-3.5); POTASSIUM - SERUM 4.4 mmol/L (3.5-5.1); SODIUM 143 mmol/L (136-145); TRIGLYCERIDE 123 mg/dL (30-200); UREA NITROGEN 39 mg/dL (7-18); eGFR NON AFRICAN AMERICAN 15 mL/min (90-120)
[2016-12-12 05:51] LABS: TROPONIN-I < 0.017 ng/mL (0.000-0.060)
--- NOTE | 2016-12-12 07:45 | NUR ---
REPORT RECIEVED ASSUMED CARE. PATIENT IN BED WITH IV INTACT. COMPLAINTS OF SHEPHERD. WILL GIVE MORPHINE, CALL LIGHT WITHIN REACH.
[2016-12-12 08:04] VITALS: BP 111/57
--- NOTE | 2016-12-12 12:30 | NUR ---
PATIENT EATING REGULAR DIET WITH NO PROBLEMS AT THIS TIME. IV INTACT. CALL LIGHT WITHIN REACH.
[2016-12-12 12:35] VITALS: BP 131/51
--- NOTE | 2016-12-12 13:55 | NUR ---
Rehab Prescreening Consult recieved and the chart has been reviewed. She is a good inpatient rehab candidate. She still has an MRI and a PT eval pending. Rehab will follow her while her W/U is progressing. Mell Cruz RN Clinical Liaison, Rehab
[2016-12-12 14:11] VITALS: Ht 160 cm; Wt 195.0 kg
--- NOTE | 2016-12-12 15:29 | NUR ---
Patient Name: JAMIE BELL Admission Status: ER Accout number: [id number] Admission Date: 12-11-2016 : 1950 Admission Diagnosis:DYSARTHRIA AND ANARTHRIA Attending: LUMA Current LOS: 1 Anticipated DC Date: 12-15-2016 Planned Disposition: Home with Home Health Primary Insurance: MEDICARE A & B Discharge Planning Comments: CM MET WITH PATIENT WITH D/C NEEDS AND PLANS. PATIENT HAS A HARD TIME EXPRESSING SELF DUE TO SPEECH PROBLEM. CM EXPLAINED WE WOULD GO SLOW REGARDING ANSWERING QUESTIONS. PATIENT DOES LIVE ALONE AND HER GRANDDAUGHTER YANDEL OR DAUGHTER RANDA CHECKS ON HER. PATIENT STATED ONE OF THEM WOULD PICK HER UP AT DISCHARGE. PATIENT HAS NO STEPS OR STAIRS AT HER HOME. PATIENT STATED SHE IS INDEPENDENT WITH HER CARE AND HAS A WALKER, SHOWER CHAIR, BS COMMODE, OXYGEN, NEBULIZER, AND PORT O2 AT HOME. PATIENTS PCP IS DR. SHORT AND PHARMACY IS [facility] [place]. PCP DR. HAN HEDRICK AT [place]- [phone] RANDA (DAUGHTER) [phone] [employer] Fabricator: Berta Mansfield Is the patient Alert and Oriented? Yes 0 * How many steps to enter\exit or inside your home? 0 0 * PCP DR. SHORT 0 * Pharmacy [facility] [place] 0 * Preadmission Environment Home Alone 0 * ADLs Independent 0 * Equipment Bedside Commode Nebulizer Oxygen Shower Chair Walker 0 * Other Equipment PORTABLE O2 0 * List name and contact numbers for known caregivers / representatives who currently or will assist patient after discharge: RANDA (DAUGHTER) [phone] 0 * Community resources currently utilized Home Health 0 * Please name any agencies selected above. CURRENT [facility] 0 * Additional services required to return to the preadmission environment? Yes 0 * Can the patient safely return to the preadmission environment? Yes 0 * Has this patient been hospitalized within the prior 30 days at any hospital? Yes 0 Grand Total: 0
[2016-12-12 15:53] VITALS: BP 147/58
--- NOTE | 2016-12-12 17:15 | NUR ---
PATIENT UNABLE TO FIT IN MRI MACHINE DUE TO WEIGHT. MRI CANCELED.
--- NOTE | 2016-12-12 18:49 | NUR ---
PATIENT IN BED WITH EYES CLOSED RESTING QUIETLY. NO COMPLAINTS. CALL LIGHT WITHIN REACH.
[2016-12-12 20:20] VITALS: BP 117/54
--- NOTE | 2016-12-12 20:24 | NUR ---
PT RESTING IN BED WATCHING TV. PT IS A&OX4. SPEECH IS STUTTERED. PT STATES THAT SHE IS IN FOR POSSIBLE STROKE. PT REQUESTS SOMETHING FOR PAIN. WILL NOTIFY NURSE. BED LOW. CL IN REACH.
[2016-12-13 00:36] VITALS: BP 159/56
--- NOTE | 2016-12-13 01:59 | NUR ---
1MG MORPHINE IVP GIVEN FOR 9/10 HEADACHE. PATIENT REPORTED MEDICATION HAS NOT BEEN WORKING VERY WELL FOR HER. SHE WAS INFORMED TO TALK WITH THE MD WHEN SHE SEES THEM ABOUT A CHANGE IN MEDICATION.
[2016-12-13 04:34] VITALS: BP 114/54
[2016-12-13 05:33] LABS: BASOPHILS 0.4 % (0.0-2.0); EOSINOPHILS 7.5 % (0-7); HEMATOCRIT 31.5 % (36.0-48.0); HEMOGLOBIN 9.4 g/dL (12-16); IMMATURE GRANULOCYTES 0.4 % (0-5); LYMPHOCYTES 27.9 % (15-50); MCH 29.4 pg (26.0-34.0); MCHC 29.8 g/dL (31.0-37.0); MCV 98.4 fL (80.0-100.0); MEAN PLATELET VOLUME 9.5 fL (7.4-10.4); MONOCYTES 9.3 % (2-11); NEUTROPHILS 54.5 % (40-80); RDW 15.3 % (11.5-14.5); WBC 5.6 10x3/uL (4.8-10.8)
[2016-12-13 05:35] LABS: PLATELET COUNT 191 10x3/uL (130-400)
[2016-12-13 05:51] LABS: ALBUMIN 2.8 g/dL (3.4-5.0); ANION GAP 9.9 mmol/L (8-16); BILIRUBIN - TOTAL 0.27 mg/dL (0.2-1.3); CALCIUM 9.3 mg/dL (8.5-10.1); CARBON DIOXIDE 29.6 mmol/L (21.0-32.0); POTASSIUM - SERUM 4.5 mmol/L (3.5-5.1); PROTEIN - SERUM 6.8 g/dL (6.4-8.2)
--- NOTE | 2016-12-13 08:00 | NUR ---
WITHOUT NEEDSA.CALL LIGHT IN REACH
--- NOTE | 2016-12-13 08:00 | NUR ---
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 WEAK BUT NOTED. PIV TO RIGHT WRIST WILL MONITOR
[2016-12-13 09:30] VITALS: BP 152/60
--- NOTE | 2016-12-13 10:00 | NUR ---
PT PARTICIPATING IN THERAPY STANDING UP AT [facility] WITH RW AND THERAPY ASSIST. IF INFILTRATED RESITED TO LEFT HAND
--- NOTE | 2016-12-13 11:59 | NUR ---
Keo Sofia was unable to participate with PT today. Rehab will continue to follow this patient for increased mobility and strength. Thank you for this referral! Gina Wilder, [employer] CREWMEMBER/[facility]
[2016-12-13 12:42] VITALS: BP 158/60
[2016-12-13 17:03] VITALS: BP 126/64
--- NOTE | 2016-12-13 18:40 | NUR ---
HAD CT SCAN TODAY OF HEAD TRANSPORTED VIA BED TOLERATED WELL GIVEN MORPHINE PER ORDER NEEDED LEON PATENT TO CLEAR YELLOW URINE TO GRAVITY DRAIN.
--- NOTE | 2016-12-13 19:45 | NUR ---
TELE PUT BACK ON PATIENT
[2016-12-13 20:00] VITALS: BP 126/78
[2016-12-14] VITALS: BP 136/72
--- NOTE | 2016-12-14 00:27 | NUR ---
RESTING WITH EYES CLOSED, RESP WITH EASE, NO DISTRESS NOTED, CL IN REACH
[2016-12-14 04:00] VITALS: BP 150/68
[2016-12-14 05:33] LABS: BASOPHILS 0.5 % (0.0-2.0); EOSINOPHILS 8.9 % (0-7); HEMATOCRIT 30.1 % (36.0-48.0); HEMOGLOBIN 8.9 g/dL (12-16); IMMATURE GRANULOCYTES 0.3 % (0-5); LYMPHOCYTES 27.1 % (15-50); MCH 28.6 pg (26.0-34.0); MCHC 29.6 g/dL (31.0-37.0); MCV 96.8 fL (80.0-100.0); MEAN PLATELET VOLUME 9.6 fL (7.4-10.4); MONOCYTES 9.8 % (2-11); NEUTROPHILS 53.4 % (40-80); PLATELET COUNT 195 10x3/uL (130-400); RBC 3.11 10x6/uL (4.00-5.40); RDW 15.1 % (11.5-14.5); WBC 6.2 10x3/uL (4.8-10.8)
[2016-12-14 05:53] LABS: ALBUMIN 2.6 g/dL (3.4-5.0); ANION GAP 12.6 mmol/L (8-16); BILIRUBIN - TOTAL 0.31 mg/dL (0.2-1.3); CARBON DIOXIDE 28.4 mmol/L (21.0-32.0); CREATININE - SERUM 2.8 mg/dL (0.6-1.3); PROTEIN - SERUM 6.5 g/dL (6.4-8.2)
[2016-12-14 07:53] VITALS: BP 140/64
[2016-12-14 11:34] VITALS: BP 144/64
[2016-12-14 15:22] VITALS: BP 103/56
--- NOTE | 2016-12-14 17:36 | NUR ---
PATIENT IS SITTING UP IN BED AND EATING HER DINNER TRAY. PATIENT IS AWAKE, ALERT, AND ORIENTED X4. PATIENT'S SPEECH IS A LITTLE GARBLED AND DIFFICULT TO UNDERSTAND AT TIMES. LEON CATHETER PATENT AND DRAINING CLEAR TRUDY COLORED URINE. PATIENT DENIES NEEDS AT PRESENT TIME. CALL LIGHT IN PATIENT'S REACH. WILL MONITOR.
[2016-12-14 19:00] VITALS: BP 103/58
--- NOTE | 2016-12-14 19:20 | NUR ---
PATIENT COMPLAINT OF LEON DISCOMFORT. PLACEMENT CHECKED AND LEON CARE COMPLETED. PATIENT STATED IT IS "GOOD" NOW.
[2016-12-15] VITALS: BP 112/61
[2016-12-15 04:00] VITALS: BP 126/62
[2016-12-15 05:43] LABS: BASOPHILS 0.6 % (0.0-2.0); EOSINOPHILS 8.4 % (0-7); HEMATOCRIT 30.6 % (36.0-48.0); HEMOGLOBIN 9.2 g/dL (12-16); IMMATURE GRANULOCYTES 0.3 % (0-5); LYMPHOCYTES 27.4 % (15-50); MCHC 30.1 g/dL (31.0-37.0); MCV 96.5 fL (80.0-100.0); MEAN PLATELET VOLUME 10.7 fL (7.4-10.4); MONOCYTES 9.1 % (2-11); NEUTROPHILS 54.2 % (40-80); PLATELET COUNT 227 10x3/uL (130-400); RBC 3.17 10x6/uL (4.00-5.40); RDW 14.9 % (11.5-14.5); WBC 6.2 10x3/uL (4.8-10.8)
[2016-12-15 06:49] LABS: ALBUMIN 2.7 g/dL (3.4-5.0); ANION GAP 11.7 mmol/L (8-16); BILIRUBIN - TOTAL 0.3 mg/dL (0.2-1.3); CARBON DIOXIDE 28.5 mmol/L (21.0-32.0); CREATININE - SERUM 2.7 mg/dL (0.6-1.3); POTASSIUM - SERUM 4.2 mmol/L (3.5-5.1); PROTEIN - SERUM 6.6 g/dL (6.4-8.2)
--- NOTE | 2016-12-15 07:30 | NUR ---
REPORT RECEIVED FROM DATA CONTROL ASSISTANT NURSE. CALL LIGHT IN REACH.
--- NOTE | 2016-12-15 08:08 | NUR ---
RESTING WITHOUT DISTRESS.DOOR OPEN,CALL LIGHT IN REACH
[2016-12-15 08:47] VITALS: BP 127/73
--- NOTE | 2016-12-15 09:35 | NUR ---
SPOKE WITH DAUGHTER WHOM WAS VERY UPSET WITH ME BECAUSEI WAS NOT ABLE TO DISCUSS XRAY RESULTS. TRIED EXPLAINING WHY BUT SHE STILL WAS UPSET.
--- NOTE | 2016-12-15 09:49 | NUR ---
ASSESSSMENT COMPLETED. AM MEDS ADMINISTERED. REFUSES SCDs. CALL LIGHT IN REACH. WILL CONTINUE WITH PLAN OF CARE.
--- NOTE | 2016-12-15 11:05 | NUR ---
UP WITH PHYSICAL THERAPY.
[2016-12-15 12:38] VITALS: BP 105/55
--- NOTE | 2016-12-15 13:59 | NUR ---
DENISE NIEVES PER ORDER. CALL LIGHT IN REACH.
--- NOTE | 2016-12-15 14:01 | NUR ---
NYSTOP POWDER PER ORDER. CALL LIGHT IN REACH.
--- NOTE | 2016-12-15 14:45 | NUR ---
NO NEEDS VOICED AT THIS TIME. CALL LIGHT IN REACH.
--- NOTE | 2016-12-15 15:37 | NUR ---
CM REASSESSMENT NOTE: PATIENT HAS BEEN ACCEPTED TO IP REHAB DOWNSTAIRS AND WILL DISCHARGE TODAY TO REHAB. PATIENTS SISTER (INGRID) HAS BEEN NOTIFIED.
[2016-12-15 16:48] VITALS: BP 99/46
--- NOTE | 2016-12-15 16:50 | NUR ---
RESTING WITH EYES CLOSED. RESP EVEN AND UNLABORED. CALL LIGHT IN REACH.
--- NOTE | 2016-12-15 18:13 | NUR ---
TYLENOL PO. NO CHANGES IN INITIAL ASSESSMENT. REFUSES SCDs. CALL LIGHT IN REACH. WILL CONTINUE WITH PLAN OF CARE.
--- NOTE | 2016-12-15 18:27 | NUR ---
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
--- NOTE | 2016-12-15 18:37 | NUR ---
DC INSTRUCTIONS EXPLAINED TO PATIENT. VERBALIZED UNDERSTANDING.
--- NOTE | 2016-12-15 18:56 | NUR ---
DC'D TO REHAB VIA WC.
[2016-12-21 16:07] LABS: AEROBE ID Final report (()); RESULT 1 Escherichia coli (())
== END 2016-12-15 18:56 | DRG 91 ==
LOC: D.ER 12:38 → D.MS 16:00 → D.SDCHOLD 12-12 15:23 → D.MS 12-12 15:23
PROVIDERS: Emergency Medicine; ADMIT Family Medicine
PROC: 0T2BX0Z Change Drainage Device in Bladder, External Approach (ICD-10-PCS; principal; 2016-12-11)
DX: R47.1 Dysarthria and anarthria (principal); I50.23 Acute on chronic systolic (congestive) heart failure; I13.0 Hypertensive heart and chronic kidney disease with heart failure and stage 1 through stage 4 chronic kidney disease, or unspecified chronic kidney disease; E87.1 Hypo-osmolality and hyponatremia; N18.4 Chronic kidney disease, stage 4 (severe); Z68.44 Body mass index [BMI] 60.0-69.9, adult; Z92.89 Personal history of other medical treatment; R41.82 Altered mental status, unspecified; B37.2 Candidiasis of skin and nail; R53.1 Weakness; D63.1 Anemia in chronic kidney disease; F32.9 Major depressive disorder, single episode, unspecified; G62.9 Polyneuropathy, unspecified; E66.01 Morbid (severe) obesity due to excess calories

== ENCOUNTER 2016-12-15 18:54 | Inpatient (IN) | payer MEDICARE ==
[~2016-12-15] VITALS: Ht 160 cm; Wt 165.1 kg
[2016-12-15 22:12] VITALS: BP 130/79; BMI 64.6
--- NOTE | 2016-12-15 22:30 | NUR ---
ADMIT PROCESS COMPLETED. PT. C/O HEADACHE BUT DOESN'T WANT ANY TYLENOL BECAUSE PT. STATES IT "DOESN'T DO A THING FOR IT". INSTRUCTED PT. TO BE SURE AND DISCUSS HER PAIN MANANGEMENT WITH DR. ALMAZAN TOMORROW. PT. STATED SHE WOULD. CALL LIGHT WITHIN REACH FOR ANY OTHER NEEDS.
--- NOTE | 2016-12-16 00:40 | NUR ---
PT. REQUESTING SOMETHING TO EAT SHE IS HUNGRY. OFFERRED APPLESAUSE AND VANILLA PUDDING. PT. ALSO REQUESTED LISA CRACKERS AND THEY WERE SUPPLIED. PT. CONTINUES TO HAVE A HEADACHE AND STILL DOESN'T WANT ANY TYLENOL. PT. SAID IT'S NOT BAD IT WAS BUT STILL AROUND #6 NOW. CALL LIGHT WITHIN REACH IF SHE HAS ANY OTHER NEEDS.
--- NOTE | 2016-12-16 02:40 | NUR ---
PT. IN BED WITH HOB UP FOR COMFORT WITH EYES CLOSED AND RESP. EVEN. CALL LIGHT WITHIN REACH.
--- NOTE | 2016-12-16 05:02 | NUR ---
PT. IN BED WITH HOB UP FOR COMFORT AND HER EYES ARE CLOSED AND HER RESP. ARE EVEN. CALL LIGHT WITHIN REACH.
[2016-12-16 05:22] LABS: BASOPHILS 0.8 % (0.0-2.0); EOSINOPHILS 10.7 % (0-7); HEMATOCRIT 30.5 % (36.0-48.0); HEMOGLOBIN 9.3 g/dL (12-16); IMMATURE GRANULOCYTES 0.4 % (0-5); LYMPHOCYTES 30.6 % (15-50); MCH 29.4 pg (26.0-34.0); MCHC 30.5 g/dL (31.0-37.0); MCV 96.5 fL (80.0-100.0); MEAN PLATELET VOLUME 10.1 fL (7.4-10.4); NEUTROPHILS 45.5 % (40-80); PLATELET COUNT 191 10x3/uL (130-400); RBC 3.16 10x6/uL (4.00-5.40); RDW 14.9 % (11.5-14.5); WBC 5.2 10x3/uL (4.8-10.8)
[2016-12-16 05:33] LABS: CALCIUM 9.5 mg/dL (8.5-10.1); CARBON DIOXIDE 30.7 mmol/L (21.0-32.0); CREATININE - SERUM 2.7 mg/dL (0.6-1.3); POTASSIUM - SERUM 3.7 mmol/L (3.5-5.1)
[2016-12-16 07:30] VITALS: BP 134/77
--- NOTE | 2016-12-16 07:55 | NUR ---
AWAKE,RESTING QUIETLY IN BED.DENIES NEEDS AT PRESENET TIME.VS TAKEN AND STABLE.CL IN EASY REACH,BED IN LOW POSITION.
[2016-12-16 12:21] VITALS: Ht 160 cm; Wt 165.1 kg
--- NOTE | 2016-12-16 18:26 | NUR ---
Pt. has had an uneventful day. Stable condition observed. No voiced complaints of pain or discomfort. Bartlett catheter patent and draining urine to gravity drainage bag system. Continuing to monitor and assist prn with adl's. Call light within reach.
--- NOTE | 2016-12-16 19:16 | NUR ---
PT IS RESTING IN BED WITH EYES OPEN. ALERT AND ORIENTED X 4. DENIES PAIN OR DISCOMFORT. O2 IS ON @ 2LPM PER NC. LEFT FOREARM SALINE LOCK NOTED. LEON CATH IS PATENT AND DRAINING TO A GRAVITY BAG. SR'S ARE UP X 3 IN BED. CALL LIGHT AND BEDSIDE TABLE ARE WITHIN EASY REACH.
[2016-12-16 19:20] VITALS: BP 121/67
--- NOTE | 2016-12-16 22:26 | NUR ---
PT IS RESTING IN BED WITH EYES OPEN. VOICED COMPLAINT OF HEADACHE. MEDICATED PER JAN.
--- NOTE | 2016-12-16 23:50 | NUR ---
IN BED, EYES CLOSED. RESTING QUIETLY.
--- NOTE | 2016-12-17 00:01 | NUR ---
RESTING IN BED WITH EYES CLOSED.
--- NOTE | 2016-12-17 01:26 | NUR ---
RESTING IN BED WITH EYES CLOSED. OPENS EYES TO THE SLIGHTEST NOISE. PT STATES SHE CONTINUES TO HAVE A HEADACHE, AND WANTS MORE PAIN MEDICATION LAURI.
--- NOTE | 2016-12-17 02:42 | NUR ---
PT VOICED COMPLAINT OF A HEADACHE. STATES: "THEY WERE GIVING ME MORPHINE UPSTAIRS." SHE REFUSED TYLENOL AT THIS TIME. COLD COMPRESS GIVEN TO PT. I RECCOMMENDED SHE TURN HER TV OFF TO GET THE LIGHT OUT OF HER EYES, BUT SHE REFUSED TO DO SO.
[2016-12-17 06:10] LABS: BASOPHILS 1.1 % (0.0-2.0); EOSINOPHILS 9.3 % (0-7); HEMATOCRIT 30.4 % (36.0-48.0); HEMOGLOBIN 9.2 g/dL (12-16); IMMATURE GRANULOCYTES 0.2 % (0-5); LYMPHOCYTES 30.3 % (15-50); MCH 29.4 pg (26.0-34.0); MCHC 30.3 g/dL (31.0-37.0); MCV 97.1 fL (80.0-100.0); MONOCYTES 6.9 % (2-11); NEUTROPHILS 52.2 % (40-80); RBC 3.13 10x6/uL (4.00-5.40); RDW 15.1 % (11.5-14.5); WBC 5.5 10x3/uL (4.8-10.8)
[2016-12-17 06:24] LABS: ANION GAP 12.3 mmol/L (8-16); CALCIUM 8.7 mg/dL (8.5-10.1); CARBON DIOXIDE 27.5 mmol/L (21.0-32.0); CREATININE - SERUM 2.8 mg/dL (0.6-1.3); POTASSIUM - SERUM 3.8 mmol/L (3.5-5.1)
[2016-12-17 06:27] LABS: PLATELET COUNT 234 10x3/uL (130-400)
--- NOTE | 2016-12-17 06:31 | NUR ---
PT RESTING IN BED WITH EYES OPEN. PT STATES SHE STILL HAS A HEADACHE, BUT IT IS A "LOT BETTER". UNABLE TO PUT A NUMBER LEVEL TO THE PAIN.
[2016-12-17 08:00] VITALS: BP 151/72
--- NOTE | 2016-12-17 08:00 | NUR ---
PATIENT LYING IN BED AWAKE. ALERT/ORIENT X4. DELAYED SPEECH. CALL LIGHT WITHIN REACH. VOICES NO NEEDS AT THIS TIME
--- NOTE | 2016-12-17 10:14 | NUR ---
PATIENT WORKING PHYSICAL THERAPIST IN REHAB ROOM. VOICES NO PAIN/DISC AT THIS TIME.
--- NOTE | 2016-12-17 12:45 | NUR ---
DR. Macho ALMAZAN HERE. REQUESTED CONSULT WITH DR FERGUSON.
--- NOTE | 2016-12-17 14:48 | NUR ---
PATIENT SITTING UP IN WHEELCHAIR AT BEDSIDE. COPY OF [facility] POWER OF ATTURNEY WITH CONSENT TO CARE PUT ON CHART
--- NOTE | 2016-12-17 14:54 | NUR ---
PT IS STABLE. ALERT AND ORIENTED X 3. NO VOICED COMPLAINTS. ASSISTANCE PROVIDED WITH ADL'S.
--- NOTE | 2016-12-17 16:23 | NUR ---
CARE TEAM MEETING ; PATIENT TENATIVE DISCHARGE DATE IS 01/08/17, PCP IS DR. SHORT, HAS USED [facility] , DME: HAS WALKER, SHOWER CHAIR, BSC, O2 AND NEBULIZER. WILL CONTINUE TO FOLLOW WITH PATIENT UNTIL DISCHARGED
--- NOTE | 2016-12-17 19:25 | NUR ---
PT. IN BED WITH HOB UP FOR COMFORT WATCHING TV. PT. WANTS ROOM TEMPERATURE WARMER. RESET THERMOSTAT AND CLOSED BATHROOM DOOR TO FACILITATE WARMING ROOM. ASSESSMENT COMPLETED. CALL LIGHT WITHIN REACH. SPEECH SLIGHTLY BETTER THEN WHEN I LAST HAD PATIENT.
[2016-12-17 21:28] VITALS: BP 121/67
--- NOTE | 2016-12-17 22:24 | NUR ---
PT. LYING IN BED WITH HOB UP FOR COMFORT AND WATCHING TV. NO VOICED COMPLAINTS AND CALL LIGHT WITHIN REACH.
--- NOTE | 2016-12-18 02:21 | NUR ---
PT. IN BED WITH HOB UP FOR COMFORT WITH EYES CLOSED AND RESP. EVEN. CALL LIGHT WITHIN REACH.
--- NOTE | 2016-12-18 06:04 | NUR ---
PT. IN BED WITH HOB UP FOR COMFORT WITH EYES CLOSED AND RESP. EVEN. LEON TO BSD WITHOUT ANY PROBLEMS. CALL LIGHT WITHIN REACH.
--- NOTE | 2016-12-18 07:30 | NUR ---
RESTING QUIETLY IN BED. CALL LIGHT IN REACH
--- NOTE | 2016-12-18 07:31 | NUR ---
RESTING QUIETLY IN BED. CALL LIGHT IN REACH
--- NOTE | 2016-12-18 10:49 | NUR ---
IN CHAIR IN ROOM. SPEECH STUTTERING. FOLLOWS COMMANDS
[2016-12-18 11:18] VITALS: BP 117/70
--- NOTE | 2016-12-18 16:29 | NUR ---
LAYING IN BED RESTING QUIETLY. PAIN MEDS GIVEN ORDERED. F/C DRAINING CLOUDY URINE.
[2016-12-18 18:50] VITALS: BP 107/67
--- NOTE | 2016-12-18 20:15 | NUR ---
PT URINE LEAKING OUT AROUND CATHETER. CATHETER BULB PLACEMENT CHECKED AND CATHETER FLUSHED. PT TOOK HS MEDS WITHOUT DIFFICULTY. PT BED LINENS CHANGED. PT DENIES NEEDS AT THIS TIME. BED LOW. CL LINR EACH.
--- NOTE | 2016-12-18 22:06 | NUR ---
PT AWAKE, READING BOOK IN BED, DENIES NEEDS. WCTM. BED LOW. CL IN REACH.
--- NOTE | 2016-12-19 00:09 | NUR ---
PT RESTING, EYES CLOSED. BED LOW. CL IN REACH. WCTM.
--- NOTE | 2016-12-19 03:45 | NUR ---
PT RESTING, EYES CLOSED. BED LOW. CL IN REACH. WCTM.
--- NOTE | 2016-12-19 06:13 | NUR ---
PT TOOK AM MEDS WITHOUT DIFFICULTY. PT DENIES NEEDS. WCTM. BED LOW. CL IN REACH.
[2016-12-19 07:27] LABS: ANION GAP 14.3 mmol/L (8-16); CALCIUM 9.5 mg/dL (8.5-10.1); CARBON DIOXIDE 26.7 mmol/L (21.0-32.0)
[2016-12-19 07:53] VITALS: BP 109/70
[2016-12-19 08:00] LABS: BASOPHILS 0.9 % (0.0-2.0); EOSINOPHILS 5.7 % (0-7); HEMATOCRIT 29.6 % (36.0-48.0); HEMOGLOBIN 8.8 g/dL (12-16); IMMATURE GRANULOCYTES 0.2 % (0-5); LYMPHOCYTES 25.6 % (15-50); MCH 28.9 pg (26.0-34.0); MCHC 29.7 g/dL (31.0-37.0); MCV 97.4 fL (80.0-100.0); MEAN PLATELET VOLUME 10.7 fL (7.4-10.4); MONOCYTES 11.2 % (2-11); NEUTROPHILS 56.4 % (40-80); RBC 3.04 10x6/uL (4.00-5.40); RDW 15.1 % (11.5-14.5); WBC 4.6 10x3/uL (4.8-10.8)
--- NOTE | 2016-12-19 08:00 | NUR ---
SITTING UP IN BED.DENIES NEEDS.CL IN REACH;STUTTERS DURING CONVERSATION.EATING BREAKFAST.
[2016-12-19 08:02] LABS: PLATELET COUNT 129 10x3/uL (130-400)
--- NOTE | 2016-12-19 10:44 | NUR ---
Nutrition Follow Up: Chart reviewed. Noted diet advanced. Diet: Regular with thin liquids PO Intake: 100% x 9 meals Wt loss 1# since admit +BM 12/17/16 Stage II to buttocks Pt with excellent po intake at this time. Rec continue current diet. RD following.
[2016-12-19 19:49] VITALS: BP 133/65
--- NOTE | 2016-12-19 20:29 | NUR ---
PT RESTING IN BED READING A BOOK, DENIES NEEDS AT THIS TIME. BED LOW. CL IN REACH.
--- NOTE | 2016-12-19 23:15 | NUR ---
PT RESTING, EYES CLOSED. BED LOW. CL IN REACH.
--- NOTE | 2016-12-20 03:10 | NUR ---
PT RESTING, EYES CLOSED. BED LOW. CL IN REACH.
[2016-12-20 07:00] VITALS: BP 126/77
--- NOTE | 2016-12-20 08:00 | NUR ---
SHIFT ASSMT COMPLETED.FC PATENT.DENIES NEEDS.
--- NOTE | 2016-12-20 12:00 | NUR ---
SITTING UP EATING LUNCH.CL IN REACH.
--- NOTE | 2016-12-20 16:00 | NUR ---
RESTING QUIETLY.CL IN REACH.
--- NOTE | 2016-12-20 19:30 | NUR ---
PT IS RESTING IN BED WITH EYES OPEN. ALERT AND ORIENTED X 4. DENIES ACUTE DISCOMFORT AT THIS TIME. VSS. LEON CATH IS PATENT AND DRAINING TO A GRAVITY BAG. NO NEEDS VOICED. SR'S ARE UP X 3 IN BED. CALL LIGHT AND BEDSIDE TABLE ARE WITHIN EASY REACH.
[2016-12-20 20:00] VITALS: BP 103/54
--- NOTE | 2016-12-20 21:54 | NUR ---
PT RESTING IN BED WATCHING TV. NO NEEDS VOICED.
--- NOTE | 2016-12-21 00:30 | NUR ---
RESTING IN BED WATCHING TV. NO ACUTE DISTRESS NOTED.
--- NOTE | 2016-12-21 03:49 | NUR ---
RESTING IN BED WITH EYES CLOSED.
--- NOTE | 2016-12-21 06:13 | NUR ---
pt resting quietly in eyes closed, no s/s of acute distress. pt observed earlier watching tv, speech increasingly becoming more intact with verbalizations of needs.
[2016-12-21 07:00] VITALS: BP 98/61
--- NOTE | 2016-12-21 08:00 | NUR ---
SHIFT ASSMT COMPLETED.ABD AND LEG HAS LONG SCRATCHES ON IT,STATED THEY WERE ITCHING BUT RELIVED WITH BENADRYL.NO RASH NOTED.CL IN REACH.BREAKFAST GIVEN.
--- NOTE | 2016-12-21 12:00 | NUR ---
RESTING QUIETLY.CL IN REACH.
--- NOTE | 2016-12-21 20:00 | NUR ---
PT IS RESTING IN BED WATCHING TV. ALERT AND ORIENTED X 4. DENIES ACUTE DISCOMFORT AT THIS TIME. LEON CATH IS PATENT AND DRAINING TO A GRAVITY BAG. SR'S ARE UP X 3 IN BED. CALL LIGHT AND BEDSIDE TABLE ARE WITHIN EASY REACH.
[2016-12-21 20:39] VITALS: BP 107/57
--- NOTE | 2016-12-21 22:15 | NUR ---
PT RESTING IN BED WATCHING TV. NO NEEDS VOICED.
--- NOTE | 2016-12-22 00:12 | NUR ---
PT RESTING, EYES CLOSED. BED LOW. CL IN REACH.
--- NOTE | 2016-12-22 06:01 | NUR ---
PT RESTIGN IN BED WITH EYES CLOSED. AWOKE TO VERBAL STIMULI. TOLERATED AM MED WITHOUT DIFFICULTY.
[2016-12-22 07:53] VITALS: BP 113/70
--- NOTE | 2016-12-22 08:03 | NUR ---
SITTING UP IN BED EATING BREAKFAST. FEEDS SELF. SPEECH IS STILL STUTTERING AND SLOW BUT IMPROVING.
--- NOTE | 2016-12-22 12:12 | NUR ---
HAS BEEN UP IN CHAIR TODAY. SPEECH SLOW. GOOD EYE CONTACT. F/C PATENT.
--- NOTE | 2016-12-22 18:20 | NUR ---
SITTING UP IN BED WATCHING TV. ATE SUPPER WHILE IN CHAIR AT BED SIDE. F/C PATENT WITH CLOUDY URINE
[2016-12-22 19:15] VITALS: BP 120/64
--- NOTE | 2016-12-22 19:35 | NUR ---
PT. IN BED WITH HOB UP FOR COMFORT AND IS MAKING HER MENU SELECTIONS FOR TOMORROW. PT. REPORTS SHE NEEDS SOMETHING FOR THE ITCHING THAT STARTED 4 DAYS AGO AND SHE TALKED WITH DR. ALMAZAN TODAY ABOUT IT. WILL SEE WHAT SHE HAS ORDERED AND GET IT TO HER. ASSESSMENT COMPLETED. NO OTHER VOICED NEEDS AT THIS TIME AND HER CALL LIGHT IS WITHIN REACH.
--- NOTE | 2016-12-22 22:20 | NUR ---
PT. IN BED WITH HOB UP FOR COMFORT WATCHING TV. SKIN CARE PROVIDED TO ALL OF HER ALTERED SKIN WITH CALMOSEPTINE AND NYSTOP POWDER THAT WAS NOT PROVIDED EARLIER. PT. DENIES ANY NEED AT THIS TIME AND HAS HER CALL LIGHT WITHIN REACH.
--- NOTE | 2016-12-23 02:11 | NUR ---
PT. IN BED WITH HOB UP FOR COMFORT WITH EYES CLOSED AND RESP. EVEN. LEON TO BSD WITHOUT ANY PROBLEMS. CALL LIGHT WITHIN REACH.
[2016-12-23 07:10] LABS: BASOPHILS 0.8 % (0.0-2.0); EOSINOPHILS 8.4 % (0-7); HEMATOCRIT 29.3 % (36.0-48.0); HEMOGLOBIN 8.8 g/dL (12-16); IMMATURE GRANULOCYTES 0.2 % (0-5); LYMPHOCYTES 32.5 % (15-50); MCH 29.1 pg (26.0-34.0); MEAN PLATELET VOLUME 10.7 fL (7.4-10.4); MONOCYTES 11.2 % (2-11); NEUTROPHILS 46.9 % (40-80); RBC 3.02 10x6/uL (4.00-5.40); RDW 15.1 % (11.5-14.5)
[2016-12-23 07:16] LABS: PLATELET COUNT 207 10x3/uL (130-400)
[2016-12-23 07:22] LABS: ANION GAP 9.8 mmol/L (8-16); CALCIUM 8.7 mg/dL (8.5-10.1); CARBON DIOXIDE 29.5 mmol/L (21.0-32.0); CREATININE - SERUM 3.1 mg/dL (0.6-1.3); POTASSIUM - SERUM 4.3 mmol/L (3.5-5.1)
--- NOTE | 2016-12-23 08:05 | NUR ---
RESTING QUIETLY IN BED. DENIES NEEDS. F/C PATENT.
[2016-12-23 08:46] VITALS: BP 127/72
--- NOTE | 2016-12-23 12:06 | NUR ---
SITTING UP IN W/C EATING LUNCH IN ROOM.
--- NOTE | 2016-12-23 13:46 | NUR ---
Nutrition Follow Up: Pt reported that everything was good. She is eating 100% meal avg on a regular diet. Noted stage II to buttocks per chart. +BM 12/21/16. Labs noted - BUN, Cr elevated. Meds noted including Lactulose. Pt with excellent po intake at this time. Rec continue current diet. RD following.
--- NOTE | 2016-12-23 18:38 | NUR ---
RESTING QUIETLY IN BED. CALL LIGHT IN REACH
[2016-12-23 18:40] VITALS: BP 114/67
--- NOTE | 2016-12-23 20:50 | NUR ---
PT HS MEDS GIVEN. NYSTATIN APPLIED TO ABD FOLDS AND CALMOSEPTINE APPLIED TO BUTTOCK AND THIGHS. PT DENIES NEEDS AT THIS TIME. BED LOW. CL IN REACH.
--- NOTE | 2016-12-23 22:15 | NUR ---
PT ASSISTED TO BR. PT BACK IN BED RESTING AND DENIES FURTHUR NEEDS. WCTM. BED LOW. CLIN REACH.
--- NOTE | 2016-12-24 00:33 | NUR ---
PT RESTING, EYES CLOSED. BED LOW. CL IN REACH.
--- NOTE | 2016-12-24 02:07 | NUR ---
PT RESTING, EYES CLOSED. RR ARE EVEN AND UNLABORED. WCTM. BED LOW. CL IN REACH.
--- NOTE | 2016-12-24 08:00 | NUR ---
SHIFT ASSMT COMPLETED.DENIES NEEDS.BREAKFAST GIVEN.
[2016-12-24 08:09] VITALS: BP 119/69
--- NOTE | 2016-12-24 08:44 | RHP ---
PATIENT: JAMIE BELL MEDICAL RECORD: [id number] ACCOUNT: [id number] LOCATION:[facility] [id number] : 46 ADMISSION DATE: 12/15/16 REHABILITATION HISTORY AND PHYSICAL EXAMINATION POST ADMISSION PHYSICIAN EXAMINATION Post-admission Physical Exam and History and Physical DATE OF ADMISSION TO THE REHAB: 12/15/2016. ADMITTING DIAGNOSES TO THE REHAB: Acute cerebrovascular accident, dysarthria of speech and left-sided weakness. HISTORY OF PRESENT ILLNESS: The patient is a 66-year-old female, patient of Dr. Rausch who presented to the ED on December 11 after a sudden onset of speech difficulty, stuttering, acute mental status changes, tremors and weakness. No family at bedside and due to her dysarthria, the patient is a poor historian. Past medical history showed a past medical history of right middle cerebral artery infarction, CHF, hypertension, morbid obesity, chronic indwelling catheter, chronic kidney disease. The patient demonstrated dysarthric speech qualities along with neurologic stutter. The patient was referred to speech therapy due to slurred speech and symptoms of CVA. The patient was able to swallow thin liquids and mechanically soft food with no clinical signs of aspiration. The patient demonstrated dysarthric speech qualities along with a neurologic stutter. Speech therapy has recommended 5 out of 7 days for improvement of her speech and swallowing safety. She is very weak and requires significant help secondary to tremors, even with purposeful movements. The patient has moderate to max assist for bed mobility, max assist for sit to stand. The patient understands and is able to follow commands. Memory appears intact, but she has severe dysarthria. She needs to improve her strength, endurance, coordination, functional mobility. She was unable to have an MRI due to weight limitations and neuro consult is still pending at this time. COMORBIDITIES: Include altered mental status, neurological stutter, chronic kidney disease, anemia, weakness, CHF, morbid obesity, hypertension, hyperlipidemia, COPD, coronary artery disease, neuropathy, chronic indwelling catheter, anxiety, depression and fibromyalgia. PAST MEDICAL HISTORY: Significant for hypertension, hyperlipidemia, COPD, coronary artery disease, neuropathy, anxiety, depression, fibromyalgia, chronic kidney disease, morbid obesity, and CHF. PAST SURGICAL HISTORY: Includes gallbladder surgery, appendectomy, and hysterectomy. She has had PTCA with stent, carpal tunnel surgery and a ganglion cyst removed. ALLERGIES: PENICILLIN AND CLONIDINE. CURRENT MEDICATIONS: Include Demadex 20 mg daily, Zemplar 1 mcg daily, Ditropan 5 mg daily, Protonix 40 mg daily, lactulose as needed 30 cc daily, Niferex 1 cap daily. She is on Colace 100 mg daily, Celexa 20 mg daily, amlodipine 5 mg daily, allopurinol 300 mg daily, trazodone 25 mg q.h.s., tizanidine 4 mg b.i.d. p.r.n. spasms, propranolol 10 mg b.i.d., Lyrica 75 mg b.i.d., Pravachol 40 mg at bedtime, Trileptal 300 mg b.i.d., DuoNeb updrafts as needed, Pepcid 20 mg at bedtime. She is on Aggrenox 1 cap b.i.d. and Tylenol as needed for fever. HISTORY AND PHYSICAL [id number] JAMIE BELL HABITS: No current alcohol or tobacco use. FAMILY HISTORY: Noncontributory. SOCIAL HISTORY: The patient hopes to return back home and live with family. REVIEW OF SYSTEMS: Generally unable to obtain secondary to her dysarthria. PHYSICAL EXAMINATION: GENERAL: A morbidly obese female in no acute distress, alert upon exam. HEENT: Normocephalic and atraumatic. Mucosa moist. NECK: Supple. No lymphadenopathy. LUNGS: Clear at this time. HEART: Regular rate and rhythm. ABDOMEN: Benign. EXTREMITIES: No clubbing or cyanosis, but he does have peripheral edema. NEUROLOGIC: Consistent with CVA. LABORATORY DATA: Her white count is 5.2, H&H of 9 and 30 and platelet count was noted to be 191. Sodium is 141, potassium 3.7, BUN and creatinine of 28 and 2.7, blood sugars noted to be 106. ASSESSMENT: This 66-year-old female patient admitted to rehab with a working diagnosis of cerebrovascular accident. The patient has potential to make improvement. We instituted the following multidisciplinary therapies including to but not limited physical, occupational, respiratory, speech, nutritional services, prosthetics and orthotics. Given her complex condition and risk for more complications, rehabilitation services cannot be provided at a low level of care such as a prison facility. PLAN: 1. Admit to [facility] rehab for intensive inpatient therapy to include the following disciplines: A. Physical therapy to improve gait, all transfer skills and bed mobility to a modified independent level. B. Occupational therapy to improve activities of daily living to a modified independent level. C. Case management to assist with discharge planning and placement options. D. Nutrition to assist with nutritional needs. E. Rehabilitation nursing to work with bladder training or any other type of training this patient needs during her stay. 2. The patient's current medication and medical care will be continued. 3. The patient will be placed on standard fall precautions. 4. The patient's estimated length of stay is approximately 10-14 days. 5. Discuss this patient during care team staff meeting this week. TRANSINT:[id number] Voice Confirmation ID: [id number] DOCUMENT ID: [id number] HISTORY AND PHYSICAL [id number] JAMIE BELL, JONATHAN HARRISON at 0844 CC: [id number] DICTATION DATE: 12/16/16 1225 HEAD BONE GRINDER: 12/16/16 1302 ADM IN [facility] [address] [place] [address]
--- NOTE | 2016-12-24 12:00 | NUR ---
IN ROOM EATING LUNCH.DENIES NEEDS.
--- NOTE | 2016-12-24 16:00 | NUR ---
UP IN WC.DENIES NEEDS.
--- NOTE | 2016-12-24 16:48 | NUR ---
CARE TEAM MEETING: PATIENT TENATIVE DISCHARGE DATE IS 01/08/17. WILL CONTINUE TO FOLLOW WITH PATIENT UNTIL DISCHARGED PATIENT PROGRESSING WELL IN THERAPY.WILL BE RA AT NEXT MEETING.
--- NOTE | 2016-12-24 18:50 | NUR ---
PATIENT HAD ASKED FOR AN EMERY BOARD FOR A RAGGED FINGERNAIL. WE DON'T CARRY THEM ON THE UNIT, I TRIMMED AND SMOOTHED THE BROKEN EDGE WITH MY BANDAGE SCISSORS. PATIENT DENIES FURTHER NEEDS.
[2016-12-24 19:10] VITALS: BP 111/64
--- NOTE | 2016-12-24 19:28 | NUR ---
PT RESTING IN BED WITH EYES OPEN. ALERT AND ORIENTED X 4. DENIES PAIN AT THIS TIME. PT REQUESTED BUTT PASTE AND NYSTATIN POWDER TO BE APPLIED AT THIS TIME. APPLIED TO COCCYX, ABD FOLDS AND ABD. SR'S ARE UP X 3 IN BED. CALL LIGHT AND BEDSIDE TABLE ARE WITHIN EASY REACH.
--- NOTE | 2016-12-24 21:36 | NUR ---
PT RESTING IN BED DOZING ON AND OFF. NO ACUTE DISTRESS NOTED.
--- NOTE | 2016-12-24 23:59 | NUR ---
RESTING QUIETLY IN BED WITH EYES CLOSED. RESPS ARE EVEN AND UNLABORED. NO ACUTE DISTRESS NOTED.
--- NOTE | 2016-12-25 03:01 | NUR ---
RESTING IN BED WITH EYES CLOSED.
--- NOTE | 2016-12-25 05:21 | NUR ---
RESTING IN BED WITH EYES CLOSED.
--- NOTE | 2016-12-25 08:00 | NUR ---
SHIFT ASSMT COMPLETED.FC PATENT.DENIES NEEDS.
[2016-12-25 09:44] VITALS: BP 95/58
--- NOTE | 2016-12-25 12:00 | NUR ---
SITTING UP EATING LUNCH.CL IN REACH
--- NOTE | 2016-12-25 16:00 | NUR ---
ASSISTED BACK TO BED.CL IN REACH.
[2016-12-25 18:45] VITALS: BP 132/65
--- NOTE | 2016-12-25 19:55 | NUR ---
PT IS RESTING IN BED WITH EYES CLOSED. AWOKE EASILY TO VERBAL STIMULI. DENIES NEEDS AT THIS TIME. LEON CATH IS PATENT AND DRAINING TO A GRAVITY BAG. SR'S ARE UP X 2 IN BED. CALL LIGHT AND BEDSIDE TABLE ARE WITHIN EASY REACH.
--- NOTE | 2016-12-25 22:09 | NUR ---
RESTING IN BED WITH EYES CLOSED.
--- NOTE | 2016-12-26 00:06 | NUR ---
RESTING IN BED WITH EYES CLOSED.
--- NOTE | 2016-12-26 02:15 | NUR ---
RESTING IN BED, EYES CLOSED. RESPIRING QUIETLY.
--- NOTE | 2016-12-26 06:11 | NUR ---
PT RESTING IN BED WITH EYES OPEN. UPON MY SAYING GOOD MORNING, PT REPLIED: "WELL THAT CAN BE DEBATED" SHE DENIES ANY NEEDS THIS AM. TOLERATED AM MED WITHOUT DIFFICULTY.
--- NOTE | 2016-12-26 07:48 | NUR ---
RESTING FLAT IN BED WITHOUT ANY NEEDS VOICED.
[2016-12-26 08:33] VITALS: BP 96/60
--- NOTE | 2016-12-26 09:45 | NUR ---
PT STILL NAUSEATED AT THIS TIME; WILL GIVE MEDS LATER.
--- NOTE | 2016-12-26 11:20 | NUR ---
SITTING UP IN BED AND TOOK MORNING PILLS WITHOUT VOMITING.
--- NOTE | 2016-12-26 13:04 | NUR ---
RESTING IN BED AND REFUSING THERAPY AT THIS TIME.
--- NOTE | 2016-12-26 15:03 | NUR ---
SLEEPING IN BED WITHOUT ANY DISTRESS.
--- NOTE | 2016-12-26 17:48 | NUR ---
EATING DINNER IN BED WITH NO NAUSEA NOTED.
[2016-12-26 18:45] VITALS: BP 142/64
--- NOTE | 2016-12-26 19:30 | NUR ---
PT. IN BED WITH HOB UP FOR COMFORT AND CONTINUES TO WATCH TV. NO VOICED NEEDS EXCEPT WOULD LIKE A CUP OF ICE. CALL LIGHT WITHIN REACH.
[2016-12-26 19:34] VITALS: BP 122/49
--- NOTE | 2016-12-26 19:35 | NUR ---
PT. IN BED WITH HOB FOR COMFORT WATCHING TV. ASSESSMENT COMPLETED. PT. REQUESTED NORCO WITH NIGHTTIME MEDS FOR HER HEADACHE. LEON TO BSD WITHOUT ANY PROBLEMS. CALL LIGHT WITHIN REACH.
--- NOTE | 2016-12-26 21:15 | NUR ---
PT. IN BED WITH HOB UP WATCHING TV. NO VOICED NEEDS AT THIS TIME. CALL LIGHT WITHIN REACH AND LEON TO BSD WITHOUT PROBLEMS.
--- NOTE | 2016-12-27 00:50 | NUR ---
PT. IN BED WITH HOB UP FOR COMFORT WITH EYES CLOSED AND RESP. EVEN. LEON TO BSD WITHOUT ANY PROBLEMS. CALL LIGHT WITHIN REACH.
--- NOTE | 2016-12-27 04:04 | NUR ---
PT. IN BED WITH HOB UP FOR COMFORT WITH EYES CLOSED AND RESP. EVEN. LEON TO BSD WITHOUT ANY PROBLEMS AND CALL LIGHT IS WITHIN REACH.
[2016-12-27 12:05] VITALS: BP 113/57
--- NOTE | 2016-12-27 17:37 | NUR ---
REFUSED SHOWER. SITTING UP IN BED EATING PIE. PEELING AREAS TO BUTTOCK LOWER AREA WHERE LEGS START. F/C PATENT
--- NOTE | 2016-12-27 19:35 | NUR ---
PT. IN BED WITH HOB UP FOR COMFORT WATCHING TV. PT. WITH SLIGHT ITCHING TO RUE AND VISIBLE SCRATCHES PRESENT. PT. REQUESING BENADRYL FOR ITCH RELIEF. ASSESSMENT COMPLETED. PAIN IN BACK #8 AND PT. REQUESTING A NORCO WITH NIGHT TIME MEDS. NO OTHER VOICED NEEDS AT THIS TIME AND HER CALL LIGHT IS WITHIN REACH.
--- NOTE | 2016-12-27 21:32 | NUR ---
COMPLETED PT'S SKIN CARE AND CATHETER CARE. PT. STATES CATH CARE HASN'T BEEN SINCE THE LAST TIME I WORKED. INFORMED PT. 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 NO BREAKDOWN OF SKIN SEEN, ONLY DRY PEELING SKIN ON POSTERIOR RIGHT BUTTOCK AND POSTERIOR UPPER THIGHS. OINTMENT/POWDER APPLIED. NO VISIBLE SIGNS OF YEAST ON PT'S ABD. FOLDS OR UNDER BREAST TISSUE. PT. TOLERATED PROCEDURE WITHOUT PROBLEMS AND FELT CLEAN AND COMFORTABLE AT COMPLETION. PT. POSITIONED TO COMFORT WITH HOB UP AND CALL LIGHT WITHIN REACH.
[2016-12-27 21:40] VITALS: BP 144/62
--- NOTE | 2016-12-28 00:30 | NUR ---
PT. IN BED WITH HOB UP FOR COMFORT. EYES CLOSED AND RESP. EVEN. LEON TO BSD WITHOUT PROBLEMS. CALL LIGHT WITHIN REACH.
--- NOTE | 2016-12-28 02:05 | NUR ---
PT. IN BED WITH HOB UP FOR COMFORT WITH EYES CLOSED AND RESP. EVEN. LEON TO BSD WITHOUT PROBLEM. PT. HAS CALL LIGHT WITHIN REACH.
--- NOTE | 2016-12-28 06:03 | NUR ---
PT. IN BED WITH HOB UP FOR COMFORT WITH EYES CLOSED AND RESP. EVEN. LEON TO BSD WITHOUT PROBLEMS. CALL LIGHT WITHIN REACH.
[2016-12-28 07:00] VITALS: BP 129/63
--- NOTE | 2016-12-28 07:30 | NUR ---
RESTING QUIETLY IN BED. CALL LIGHT IN REACH
--- NOTE | 2016-12-28 17:58 | NUR ---
SITTING UP IN BED WATCHING TV AND EATING SUPPER. DENIES NEEDS OR C/O. CALL LIGHT IN REACH
[2016-12-28 18:54] VITALS: BP 109/73
--- NOTE | 2016-12-28 20:01 | NUR ---
PT IN BED WATCHING TV AND BRUSHING HAIR. NO CONCERNS MADE KNOWN AT THIS TIME. WATER AND CALL LIGHT IN REACH. WILL CONTINUE TO OBSERVE.
--- NOTE | 2016-12-28 22:58 | NUR ---
PT IN BED WATCHING TV. REQUEST PILLOW BEHIND BACK FOR SUPPORT TO LYE ON LEFT SIDE. FRESH WATER GIVEN. CALL LIGHT IN REACH. WILL CONTINUE TO OBSERVE.
--- NOTE | 2016-12-29 01:27 | NUR ---
PT IN BED WITH EYES CLOSED AND CHEST RISING. RESPIRATIONS EVEN AND UNLABORED. WATER AND CALL LIGHT IN REACH. WILL CONTINUE TO OBSERVE.
--- NOTE | 2016-12-29 03:53 | NUR ---
PT IN BED WITH EYES CLOSED AND CHEST RISING. RESPIRATIONS EVEN AND UNLABORED. NO SIGN/SYMPTOMS OF DISTRESS NOTED. WILL CONTINUE TO OBSERVE.
--- NOTE | 2016-12-29 05:25 | NUR ---
PT IN BED WITH EYES CLOSED AND CHEST RISING. RESPIRATIONS EVEN AND UNLABORED. NO CONCERN MADE KNOWN. CALL LIGHT IN REACH.
--- NOTE | 2016-12-29 07:30 | NUR ---
RESTING QUIETLY IN BED. CALL LIGHT IN REACH
[2016-12-29 09:17] LABS: BASOPHILS 0.4 % (0.0-2.0); EOSINOPHILS 9.9 % (0-7); HEMATOCRIT 31.1 % (36.0-48.0); HEMOGLOBIN 9.2 g/dL (12-16); IMMATURE GRANULOCYTES 0.4 % (0-5); LYMPHOCYTES 23.7 % (15-50); MCH 29.5 pg (26.0-34.0); MCHC 29.6 g/dL (31.0-37.0); MCV 99.7 fL (80.0-100.0); MEAN PLATELET VOLUME 10.9 fL (7.4-10.4); NEUTROPHILS 54.6 % (40-80); PLATELET COUNT 227 10x3/uL (130-400); RBC 3.12 10x6/uL (4.00-5.40); RDW 15.1 % (11.5-14.5); WBC 5.6 10x3/uL (4.8-10.8)
[2016-12-29 09:30] LABS: ANION GAP 12.7 mmol/L (8-16); CALCIUM 9.1 mg/dL (8.5-10.1); CARBON DIOXIDE 27.4 mmol/L (21.0-32.0); CREATININE - SERUM 3.3 mg/dL (0.6-1.3); POTASSIUM - SERUM 4.1 mmol/L (3.5-5.1)
[2016-12-29 10:18] VITALS: BP 126/51
--- NOTE | 2016-12-29 13:31 | NUR ---
SITTING UP IN W/C IN HER ROOM. DENIES NEEDS
--- NOTE | 2016-12-29 14:10 | NUR ---
F/C PATENT WITH CLOUDY URINE. SPEECH CLEAR AND NO STUTTERING NOTED.
[2016-12-29 17:50] VITALS: BP 117/62
--- NOTE | 2016-12-29 17:58 | NUR ---
LAYING IN BED WATCHING TV. DENIES NEEDS. CALL LIGHT IN REACH
--- NOTE | 2016-12-29 19:23 | NUR ---
PT IN BED WATCHING TV. COMPLAINS OF PAIN 05/02 BUT STATES THAT SHE WANTS TO WAIT ON MEDICATION BEFORE GOING TO SLEEP. NO SIGN/SYPMTOMS OF DISTRESS NOTED. CALL LIGHT IN REACH. WILL CONTINUE TO OBSERVE.
--- NOTE | 2016-12-29 21:59 | NUR ---
PT IN BED WATCHING TV. NO SIGN/SYMPTOMS OF DISTRESS. STATES NO RELIEF FROM PAIN AT THIS TIME. PT REPOSITIONED FOR COMFORT. WATER AND CALL LIGHT IN REACH. WILL CONTINUE TO OBSERVE.
--- NOTE | 2016-12-30 01:26 | NUR ---
PT IN BED WITH EYES CLOSED AND CHEST RISING. RESPIRATIONS EVEN. NO SIGNS/SYMPTOMS OF PAIN OR DISTRESS NOTED. CALL LIGHT IN REACH. WILL CONTINUE TO OBSERVE.
--- NOTE | 2016-12-30 04:26 | NUR ---
PT IN BED WITH EYES CLOSED AND CHEST RISING. RESPIRATIONS EVEN AND UNLABORED. NO CONCERNS NOTED AT THIS TIME. WATER AND CALL LIGHT IN REACH. WILL CONTINUE TO OBSERVE.
--- NOTE | 2016-12-30 06:21 | NUR ---
PT IN BED WITH EYES CLOSED AND CHEST RISING. EASILY AROUSED UPON ENTRY. ADMINISTER SCHEDULED MEDICATIONS WITH OUT DIFFICULTY. LEON EMPTIED WITH 11OO MLS YELLOW URNINE. NO CONCERNS MADE KNOWN AT THIS TIME. CALL LIGHT IN REACH.
--- NOTE | 2016-12-30 07:00 | NUR ---
Pt. was received in bed awake and oriented x 4 at the beginning of this shift. Pt. denies any pain or discomfort at this time. No signs of any distress. Stable condition observed. Vital signs: Temp. 98.6, pulse 58, resp. 14, b/p 107/64, 02Sat. 100%. Bartlett catheter is patent and draining clear yellow urine to gravity drainage bag system without any difficulty. Call light is in reach and telephone. Will be monitoring pt. throughout this shift and assisting prn with adl's.
[2016-12-30 09:35] VITALS: BP 107/64
--- NOTE | 2016-12-30 10:20 | NUR ---
Nutrition Follow Up: Chart reviewed. Pt is eating 100% meal avg on a Regular diet. +BM 12/28/16. Labs noted - BUN, Cr continue elevated. Meds noted including Lactulose. Rec continue current diet. RD following.
--- NOTE | 2016-12-30 18:15 | NUR ---
Pt. has had an uneventful day today. Pt. has gone to therapy and worked hard. Pt. was assisted to the shower this afternoon and her linens were changed. Call light in reach.
--- NOTE | 2016-12-30 20:00 | NUR ---
PT IS RESTING IN BED WITH EYES OPEN. ALERT AND ORIENTED X 4. DENIES ACUTE DISCOMFORT AT THIS TIME. VSS. PT DENIES NEEDS AT THIS TIME. NO DEFICITS NOTED FROM RECENT CVA. LEON CATH IS PATENT AND DRAINING TO A GRAVITY BAG. SR'S ARE UP X 2 IN BED. CALL LIGHT AND BEDSIDE TABLE ARE WITHIN EASY REACH.
[2016-12-30 20:59] VITALS: BP 114/78
--- NOTE | 2016-12-30 22:29 | NUR ---
RESTING QUIETLY IN BED WATCHING TV. NO NEEDS VOICED.
--- NOTE | 2016-12-31 01:37 | NUR ---
PT RESTING QUIETLY, NO S/S OF ACUTE DISTRESS, RESPIRATIONS REGULAR AND UNLABORED.
--- NOTE | 2016-12-31 06:22 | NUR ---
PT RESTING IN BED WITH EYES CLOSED. AWOKE EASILY TO VERBAL STIMULI. TOLERATED AM MED WITHOUT DIFFICULTY.
--- NOTE | 2016-12-31 08:00 | NUR ---
SITTING UP IN BED.CL IN REACH.
--- NOTE | 2016-12-31 08:29 | NUR ---
PT RESTING IN BED WITH EYES OPEN CALL LIGHT IN REACH NO PROBLEMS WILL MONITER
[2016-12-31 09:59] LABS: ANION GAP 15.5 mmol/L (8-16); CALCIUM 8.7 mg/dL (8.5-10.1); CARBON DIOXIDE 24.7 mmol/L (21.0-32.0); CREATININE - SERUM 3.2 mg/dL (0.6-1.3); POTASSIUM - SERUM 4.2 mmol/L (3.5-5.1)
[2016-12-31 10:15] LABS: BASOPHILS 0.4 % (0.0-2.0); EOSINOPHILS 7.5 % (0-7); HEMATOCRIT 30.9 % (36.0-48.0); HEMOGLOBIN 9.4 g/dL (12-16); IMMATURE GRANULOCYTES 0.4 % (0-5); LYMPHOCYTES 26.3 % (15-50); MCH 29.4 pg (26.0-34.0); MCHC 30.4 g/dL (31.0-37.0); MCV 96.6 fL (80.0-100.0); MEAN PLATELET VOLUME 11.6 fL (7.4-10.4); MONOCYTES 10.4 % (2-11); PLATELET COUNT 193 10x3/uL (130-400); WBC 4.8 10x3/uL (4.8-10.8)
--- NOTE | 2016-12-31 15:19 | NUR ---
CARE TEAM MEETING: PATIENT TENATIVE DISCHARGE DATE IS 01/02/17. DR. SHORT IS [facility], [facility] WILL RESUME CARE. DME: HAS WALKER, SHOWER CHAIR, BEDSIDE COMMODE , O2 AND NEBULIZER. DME COMPANY IS [employer]. WILL CONTINUE TO FOLLOW WITH PATIENT UNTIL DISCHARGED.
--- NOTE | 2016-12-31 18:00 | NUR ---
PT RESTING IN BED WITH EYES OPEN CALL LIGHT IN REACH NO PROBLEMS WILL MONITER
[2016-12-31 20:00] VITALS: BP 109/65
--- NOTE | 2016-12-31 20:00 | NUR ---
PT IS RESTING IN BED WITH EYES CLOSED. AWOKE EASILY TO VERBAL STIMULI. ALERT AND ORIENTED X 4. DENIES ACUTE DISCOMFORT AT THIS TIME. LEON CATH IS PATENT AND DRAINING TO A GRAVITY BAG. SR'S ARE UP X 2 IN BED. CALL LIGHT AND BEDSIDE TABLE ARE WITHIN EASY REACH.
--- NOTE | 2016-12-31 22:44 | NUR ---
PT IS RESTING QUIETLY IN BED WITH EYES CLOSED. RESPS ARE EVEN AND UNLABORED. NO ACUTE DISTRESS NOTED.
--- NOTE | 2016-12-31 23:07 | NUR ---
PT. IN BED WITH HOB ELEVATED FOR COMFORT AND HER EYES ARE CLOSED AND RESP. ARE DEEP AND EVEN. LEON TO BSD WITHOUT PROBLEMS. CALL LIGHT WITHIN REACH.
--- NOTE | 2017-01-01 00:58 | NUR ---
RESTING IN BED WITH EYES CLOSED.
--- NOTE | 2017-01-01 03:00 | NUR ---
PT IS RESTING QUIETLY IN BED WITH EYES CLOSED. NO DISTRESS NOTED.
--- NOTE | 2017-01-01 05:00 | NUR ---
RESTING IN BED WITH EYES CLOSED.
--- NOTE | 2017-01-01 07:30 | NUR ---
resting quietly in bed. call carson in reach
[2017-01-01 08:11] VITALS: BP 113/56
--- NOTE | 2017-01-01 10:00 | NUR ---
RESTING QUIETLY IN BED WITH EYES CLOSED.AROUSES EASILY TO VERBAL STIMULI.DENIES PAIN EXCEPT REPORTS PAIN IN RT KNEE AT TIMES.ASSESSMENT COMPLETED .WILL CONTINUE WITH PLAN OF CARE.
--- NOTE | 2017-01-01 15:06 | NUR ---
PATIENT DISCHARGING HOME ON 01/02/17. [facility] WILL RESUME CARE, PATIENT HAS WALKER, SC, BSC, O2, NEBULIZER AND HOSPITAL BED. APPOINTMENTS: DR. SHORT 01/12/17 @ 2:00, DR. FERGUSON 02/04/17 @ 8:20. PATIENT CHOICE FOR HOME HEALTH AND [facility] FORM SIGNED, EXPLAINED AND FILED IN CHART. WILL CONTINUE TO FOLLOW WITH PATIENT UNTIL DISCHARGED
--- NOTE | 2017-01-01 18:48 | NUR ---
WATCHING TV FROM BED. SAT IN W/C FOR LONG TIME TODAY.
[2017-01-01 19:50] VITALS: BP 117/73
--- NOTE | 2017-01-01 20:00 | NUR ---
PT IS RESTING IN BED WITH EYES CLOSED. AWOKE EASILY TO VERBAL STIMULI. ALERT AND ORIENTED X 4. DENIES ANY PAIN OR DISCOMFORT AT THIS TIME. VSS. LEON CATH. IS PATENT AND DRAINING TO A GRAVITY BAG. SR'S ARE UP X 2 IN BED. CALL LIGHT AND BEDSIDE TABLE ARE WITHIN EASY REACH.
--- NOTE | 2017-01-01 22:17 | NUR ---
PT. IN BED WITH HOB UP FOR COMFORT LYING ON HER BACK WITH EYES CLOSED, RESP. EVEN, LEON TO BSD WITHOUT PROBLEM, AND SHE HAS HER CALL LIGHT WITHIN REACH.
--- NOTE | 2017-01-02 01:00 | NUR ---
PT RESTING IN BED WITH EYES CLOSED.
--- NOTE | 2017-01-02 04:27 | NUR ---
RESTING IN BED WITH EYES CLOSED.
--- NOTE | 2017-01-02 06:04 | NUR ---
PT IS RESTING QUIETLY IN BED WITH EYES CLOSED. NO DISTRESS NOTED. AWOKE FOR AM MED, BUT DRIFTED RIGHT BACK TO SLEEP AFTERWARDS.
--- NOTE | 2017-01-02 07:30 | NUR ---
SITTING UP IN BED WATCHING TV. DENIES NEEDS. F/C PATENT WITH CLOUDY URINE
[2017-01-02] MEDS ORDERED: DOXEPIN HCL10 MG PO (08:13)
[2017-01-02] MEDS ORDERED: HYDROCODONE-APA1 TAB PO (08:14)
--- NOTE | 2017-01-02 10:44 | NUR ---
SITTING UP IN W/C. NEEDS ASST TO TRANSFER TO W/C AND OUT AGAIN. SCHEDULED TO D/C TODAY
--- NOTE | 2017-01-02 12:45 | NUR ---
RESTING QUIETLY IN BED. CALL LIGHT IN REACH
[2017-01-02 12:46] VITALS: BP 132/51
--- NOTE | 2017-02-04 12:28 | DS ---
PATIENT:JAMIE BELL :46 MEDICAL RECORD: [id number] DISCHARGE SUMMARY ADMISSION DATE: 12/15/16 DISCHARGE DATE: 01/02/17 This is a discharge from the inpatient rehab dated 01/02/2017. PRIMARY DIAGNOSIS: Decreased functional ability and ability to provide activities of daily living secondary to acute cerebrovascular accident with dysarthria of speech and left-sided weakness. SECONDARY DIAGNOSES: 1. Stuttering speech. 2. Migraine. 3. Osteoarthritis. 4. Right knee pain. 5. Chronic indwelling Bartlett catheter. 6. Acute kidney injury on chronic kidney disease. 7. Fibromyalgia. 8. Anxiety/depression. 9. Neuropathy. 10. Coronary artery disease. 11. Chronic obstructive pulmonary disease. 12. Morbid obesity. 13. Urinary tract infection. 14. Iron deficiency anemia. 15. Congestive heart failure. 16. Hypertension. 17. Gout. 18. Hyperlipidemia. CONSULTS THIS HOSPITALIZATION: 1. Neurology with Dr. Crabtree. 2. Ortho [address] Kirkland. HOSPITAL COURSE: Full H&P is located elsewhere on the chart on this 66-year-old female who was admitted to inpatient rehab for physical therapy and occupational therapy to improve gait, transfer skills, bed mobility, and activities of daily living to a modified independent level. She was evaluated by PT and OT and their plans of care were followed. She required [facility] care for observation and assessment and medication administration. She developed some stuttering speech. Neurology was reconsulted. Dr. Crabtree felt this was more consistent with complex migraines as CTs were negative times 2 and stuttering speech is not typical with CVA. She complained of some knee pain. X-rays with osteoarthritic change. Dr. Kirkland was consulted and she received steroid injection from Dr. Kirkland's PA. She stayed on nebulized medications for respiratory support. She was cooperative with therapies, progressing towards goals. Case management was involved for discharge planning. She was cooperative with therapies, progressing towards goals. Case management was involved for discharge planning. She was considered stable for discharge on 01/02/2017. DISCHARGE MEDICATIONS: As per discharge medication reconciliation. DISCHARGE DISPOSITION: The patient is discharged home. She will continue her current diet and level of activity. She will have home health for continued DISCHARGE SUMMARY REPORT [id number] BELLJAMIE nursing, PT and OT. She will follow up with primary care and specialists as directed. TRANSINT:[id number] Voice Confirmation ID: [id number] DOCUMENT ID: [id number] Dictated By: MATT CARUSO I have interviewed/examined the above patient and agree with these documented findings. JONATHAN ALMAZAN MD at 1228 at 1231 CC: [id number] DICTATION DATE: 01/31/17 1347 OPERATOR ASSISTANT I CEMENTING: 02/01/17 0306 DIS IN 01/02/17 [id number] [place] [address]
== END 2017-01-02 17:00 | disposition home health service (06) | DRG 57 ==
LOC: D.REHAB 18:54
PROVIDERS: ADMIT Emergency Medicine
PROC: 3E0U33Z Introduction of Anti-inflammatory into Joints, Percutaneous Approach (ICD-10-PCS; principal; 2017-01-02)
PROC: 3E0U3BZ Introduction of Anesthetic Agent into Joints, Percutaneous Approach (ICD-10-PCS; 2017-01-02)
DX: I69.354 Hemiplegia and hemiparesis following cerebral infarction affecting left non-dominant side (principal); I13.0 Hypertensive heart and chronic kidney disease with heart failure and stage 1 through stage 4 chronic kidney disease, or unspecified chronic kidney disease; I69.322 Dysarthria following cerebral infarction; R41.82 Altered mental status, unspecified; R29.818 Other symptoms and signs involving the nervous system; N18.9 Chronic kidney disease, unspecified; I50.9 Heart failure, unspecified; D64.9 Anemia, unspecified; M17.0 Bilateral primary osteoarthritis of knee; E66.01 Morbid (severe) obesity due to excess calories; E78.5 Hyperlipidemia, unspecified; J44.9 Chronic obstructive pulmonary disease, unspecified; I25.10 Atherosclerotic heart disease of native coronary artery without angina pectoris; G62.9 Polyneuropathy, unspecified; F41.8 Other specified anxiety disorders; M79.7 Fibromyalgia

== ENCOUNTER → 2017-01-28 19:17 | Outpatient (CLI) | payer MEDICARE ==
[2016-12-16 12:21] VITALS: BMI 64.4
[~2017-01-28 19:17] MED LIST changes: +DOXEPIN HCL10 MG PO
[2017-01-28 21:05] LABS: ANION GAP 11.7 mmol/L (8-16); CALCIUM 9.4 mg/dL (8.5-10.1); CARBON DIOXIDE 28.7 mmol/L (21.0-32.0); POTASSIUM - SERUM 4.4 mmol/L (3.5-5.1)
== END | disposition home or self-care (01) ==
LOC: D.LABREF 19:17
PROVIDERS: Family Medicine
DX: E11.9 Type 2 diabetes mellitus without complications (principal); G72.89 Other specified myopathies

== ENCOUNTER → 2017-10-03 14:04 | Outpatient (CLI) | payer MEDICARE ==
[2016-12-16 12:21] VITALS: BMI 64.4
[2017-10-03 14:35] LABS: APPEARANCE CLOUDY (CLEAR); BILIRUBIN NEGATIVE (NEGATIVE); COLOR YELLOW (YELLOW); GLUCOSE NEGATIVE (NEGATIVE); KETONE NEGATIVE (NEGATIVE); NITRITE POSITIVE (NEGATIVE); PROTEIN 1+ mg/dL (NEGATIVE); SPECIFIC GRAVITY 1.015 (1.005-1.020); UROBILINOGEN NORMAL (NORMAL)
[2017-10-03 14:36] LABS: WHITE CELLS - URINE >50 /hpf (0-5)
[2017-10-03 14:37] LABS: BACTERIA MODERATE /hpf (NONE SEEN); CALCIUM OXALATE CRYSTALS 0-5 /hpf (NONE SEEN)
== END | disposition home or self-care (01) ==
LOC: D.LABREF 14:04
PROVIDERS: Family Medicine
DX: N39.0 Urinary tract infection, site not specified (principal)

== ENCOUNTER 2018-01-13 01:03 | Inpatient (IN) | payer MEDICARE ==
[~2018-01-13] VITALS: Ht 160 cm; Wt 157.3 kg
--- NOTE | ~2018-01-13 | OP ---
PATIENT NAME: JAMIE BELL MEDICAL RECORD: [id number] :46 LOCATION:D.M2 D.2132 ADMISSION DATE:01/13/18 SURGEON: MINA VASQUEZ MD DATE OF OPERATION: 01/20/2018 SURGEON: Mina Vasquez MD ANESTHESIA: TIVA by Sravan Noel CRNA PREOPERATIVE DIAGNOSES: Bilateral hydronephrosis, renal failure. POSTOPERATIVE DIAGNOSES: Bilateral hydronephrosis, renal failure. PROCEDURES: Cystoscopy; bilateral retrograde pyelograms; bilateral ureteral stent insertion, 6-Turkish x 22 cm without strings attached. FINDINGS: Inflamed bladder. No tumors. Single ureteral orifices bilaterally. BLOOD LOSS: None. CLINICAL HISTORY: This is a 67-year-old female with history of diabetes, who was admitted to hospital with Pseudomonas aeruginosa UTI. She is being treated with meropenem. She was found to have lstbl-xz-nmohwyg renal failure with creatinine of 3.1. CT scan of abdomen and pelvis without IV contrast showed bilateral hydronephrosis and bilateral renal atrophy. The right side is more atrophic than the left. We are going to perform bilateral ureteral stent insertion to see if this could improve her renal function in anyway. Since she is already on IV antibiotics on the floor, we did not give her any further antibiotics here. DESCRIPTION OF PROCEDURE: The patient was given IV sedation and then placed into dorsal lithotomy position. She was prepped and draped. A 21-Turkish cystoscope with 30-degree lens was used for visualization. No bladder tumors were seen. She has inflammation of the bladder from her recent UTI and also from an indwelling Bartlett catheter. It should be noted when we transferred the patient from the stretcher to the OR table that a sacral decubitus ulcer was noted. I will have the wound care nurse examine her postoperatively and suggest treatment. A 5-Turkish open-ended ureteral catheter was placed into the right ureteral orifice and a diluted contrast was injected. She has severe hydroureteronephrosis all the way down to the UV junction. No apparent cause of the stenosis was seen. Through the lumen of the ureteral catheter, we inserted a Sensor wire up to renal pelvis. The ureteral catheter was then removed. Over the Sensor wire, we inserted a 6-Turkish x 22-cm ureteral stent. The string on the distal end of the stent was removed prior to putting this stent on the wire. Once the stent was in correct position, the wire was slowly withdrawn to allow the proximal end to coil. The wire was then withdrawn entirely and the distal end was pushed into the bladder using a pusher. We repeated the procedure on the left side. There was also hydroureteronephrosis on the left side with no apparent cause. A stent was also inserted on the left ureter. At the end of the procedure, fluoroscopy confirmed that both stents were in good position. The bladder was then emptied through the cystoscope. We reintroduced a 16-Turkish Bartlett catheter and put it to bag drainage. TRANSINT:[id number] Voice Confirmation ID: [id number] DOCUMENT ID: [id number] OPERATIVE REPORT [id number] JAMIE BELL ROBERT S MD at 0926 CC: [id number] DICTATION DATE: 01/20/18 1344 LIMB DRIVER: 01/20/18 1422 ADM IN [facility] [address] [id number]
[2018-01-13 01:59] LABS: BASOPHILS 0.3 % (0-2); HEMATOCRIT 34.2 % (36.0-48.0); HEMOGLOBIN 10.5 g/dL (12-16); IMMATURE GRANULOCYTES 0.3 % (0-5); MCH 29.2 pg (26.0-34.0); MCHC 30.7 g/dL (31.0-37.0); MCV 95.3 fL (80.0-100.0); MEAN PLATELET VOLUME 11.2 fL (7.4-10.4); MONOCYTES 9.1 % (2-11); NEUTROPHILS 75.3 % (40-80); PLATELET COUNT 170 10x3/uL (130-400); RBC 3.59 10x6/uL (4.00-5.40); RDW 14.5 % (11.5-14.5); WBC 9.2 10x3/uL (4.8-10.8)
[2018-01-13 02:06] LABS: APPEARANCE CLOUDY (CLEAR); BILIRUBIN NEGATIVE (NEGATIVE); COLOR YELLOW (YELLOW); GLUCOSE NEGATIVE (NEGATIVE); KETONE NEGATIVE (NEGATIVE); NITRITE POSITIVE (NEGATIVE); PROTEIN 2+ mg/dL (NEGATIVE); UROBILINOGEN NORMAL (NORMAL)
[2018-01-13 02:07] LABS: BACTERIA MANY /hpf (NONE SEEN); EPITHELIAL CELLS 0-5 /hpf (0-5); WHITE CELLS - URINE 25-50 /hpf (0-5)
[2018-01-13 02:15] LABS: APTT 24.3 SECONDS (22.8-39.4); INR 1.02 (0.85-1.17)
[2018-01-13 02:16] LABS: D-DIMER-QUANTITATIVE 0.44 ug/mLFEU (0.20-0.54)
[2018-01-13 02:18] LABS: ALBUMIN 3.3 g/dL (3.4-5.0); ALKALINE PHOSPHATASE 92 U/L (46-116); ALT (SGPT) 17 U/L (10-68); BILIRUBIN - TOTAL 0.28 mg/dL (0.2-1.3); CALC OSMOLALITY 293 mosm/kg (275-300); CALCIUM 9.7 mg/dL (8.5-10.1); CARBON DIOXIDE 23.1 mmol/L (21.0-32.0); CHLORIDE - SERUM 101 mmol/L (98-107); CREATININE - SERUM 3.4 mg/dL (0.6-1.3); GLUCOSE 118 mg/dL (74-106); POTASSIUM - SERUM 4.3 mmol/L (3.5-5.1); PROTEIN - SERUM 7.6 g/dL (6.4-8.2); SODIUM 137 mmol/L (136-145); UREA NITROGEN 65 mg/dL (7-18); eGFR NON AFRICAN AMERICAN 14 mL/min (90-120)
[2018-01-13 02:36] LABS: AMYLASE - SERUM 42 U/L (25-115); CKMB 0.9 U/L (0.0-3.6); CREATINE KINASE 78 UL (21-215); LIPASE 253 U/L (73-393); PRO BNP 726 pg/mL (0-125)
[2018-01-13 02:37] LABS: TROPONIN-I < 0.017 ng/mL (0.000-0.060)
[2018-01-13 19:00] VITALS: BP 176/65
[2018-01-14 01:36] VITALS: BP 176/65; BMI 62.1
[2018-01-14 04:00] VITALS: BP 151/58
[2018-01-14 05:12] LABS: BASOPHILS 0.3 % (0-2); HEMATOCRIT 32.9 % (36.0-48.0); HEMOGLOBIN 10.1 g/dL (12-16); IMMATURE GRANULOCYTES 0.3 % (0-5); LYMPHOCYTES 19.8 % (15-50); MCH 30.3 pg (26.0-34.0); MCHC 30.7 g/dL (31.0-37.0); MEAN PLATELET VOLUME 11.6 fL (7.4-10.4); MONOCYTES 10.1 % (2-11); NEUTROPHILS 66.5 % (40-80); RBC 3.33 10x6/uL (4.00-5.40); RDW 14.9 % (11.5-14.5); WBC 6.9 10x3/uL (4.8-10.8)
[2018-01-14 05:30] LABS: MCV 98.8 fL (80.0-100.0); PLATELET COUNT 216 10x3/uL (130-400)
[2018-01-14 06:03] LABS: ALBUMIN 2.9 g/dL (3.4-5.0); ANION GAP 14.9 mmol/L (8-16); BILIRUBIN - TOTAL 0.2 mg/dL (0.2-1.3); CALCIUM 9.2 mg/dL (8.5-10.1); CARBON DIOXIDE 23.4 mmol/L (21.0-32.0); CREATININE - SERUM 2.9 mg/dL (0.6-1.3); POTASSIUM - SERUM 4.3 mmol/L (3.5-5.1); PROTEIN - SERUM 7.1 g/dL (6.4-8.2)
[2018-01-14 06:59] LABS: APPEARANCE CLOUDY (CLEAR); BACTERIA MODERATE /hpf (NONE SEEN); BILIRUBIN NEGATIVE (NEGATIVE); COLOR YELLOW (YELLOW); EPITHELIAL CELLS OCC /hpf (0-5); GLUCOSE NEGATIVE (NEGATIVE); KETONE NEGATIVE (NEGATIVE); MUCUS <1+ /lpf (NONE SEEN); NITRITE POSITIVE (NEGATIVE); PROTEIN 2+ mg/dL (NEGATIVE); RED CELLS - URINE 0-5 /hpf (0-5); SPECIFIC GRAVITY 1.015 (1.005-1.020); UROBILINOGEN NORMAL (NORMAL); WHITE CELLS - URINE >50 /hpf (0-5)
[2018-01-14 07:44] VITALS: BP 159/60
[2018-01-14 10:57] VITALS: BP 162/65
[2018-01-14 13:44] VITALS: BMI 55.8
[2018-01-14 14:57] VITALS: BP 154/68
[2018-01-14 21:46] VITALS: BP 141/44
[2018-01-15 00:33] VITALS: BP 142/48
[2018-01-15 04:51] VITALS: BP 144/47
[2018-01-15 04:59] LABS: BASOPHILS 0.4 % (0-2); EOSINOPHILS 3.4 % (0-7); HEMATOCRIT 31.2 % (36.0-48.0); HEMOGLOBIN 9.5 g/dL (12-16); IMMATURE GRANULOCYTES 0.3 % (0-5); LYMPHOCYTES 24.6 % (15-50); MCH 29.9 pg (26.0-34.0); MCHC 30.4 g/dL (31.0-37.0); MCV 98.1 fL (80.0-100.0); MEAN PLATELET VOLUME 11.3 fL (7.4-10.4); MONOCYTES 9.7 % (2-11); NEUTROPHILS 61.6 % (40-80); PLATELET COUNT 199 10x3/uL (130-400); RBC 3.18 10x6/uL (4.00-5.40); RDW 14.8 % (11.5-14.5); WBC 6.8 10x3/uL (4.8-10.8)
[2018-01-15 05:13] LABS: ALBUMIN 2.8 g/dL (3.4-5.0); ANION GAP 12.8 mmol/L (8-16); BILIRUBIN - TOTAL 0.15 mg/dL (0.2-1.3); CALCIUM 8.6 mg/dL (8.5-10.1); CARBON DIOXIDE 24.4 mmol/L (21.0-32.0); CREATININE - SERUM 3.1 mg/dL (0.6-1.3); POTASSIUM - SERUM 4.2 mmol/L (3.5-5.1); PROTEIN - SERUM 6.8 g/dL (6.4-8.2)
[2018-01-15 07:47] VITALS: BP 131/76
[2018-01-15 10:40] VITALS: BP 136/68
[2018-01-15 15:07] VITALS: BP 128/73
[2018-01-15 20:54] VITALS: BP 158/56
[2018-01-16 00:53] VITALS: BP 149/49
[2018-01-16 04:43] LABS: BASOPHILS 0.3 % (0-2); EOSINOPHILS 3.6 % (0-7); HEMATOCRIT 31.4 % (36.0-48.0); HEMOGLOBIN 9.5 g/dL (12-16); IMMATURE GRANULOCYTES 0.4 % (0-5); LYMPHOCYTES 20.7 % (15-50); MCH 29.4 pg (26.0-34.0); MCHC 30.3 g/dL (31.0-37.0); MCV 97.2 fL (80.0-100.0); MEAN PLATELET VOLUME 11.3 fL (7.4-10.4); MONOCYTES 8.8 % (2-11); NEUTROPHILS 66.2 % (40-80); PLATELET COUNT 203 10x3/uL (130-400); RBC 3.23 10x6/uL (4.00-5.40); RDW 14.8 % (11.5-14.5); WBC 6.9 10x3/uL (4.8-10.8)
[2018-01-16 04:47] VITALS: BP 131/30
[2018-01-16 05:02] LABS: ALBUMIN 2.6 g/dL (3.4-5.0); ANION GAP 10.5 mmol/L (8-16); BILIRUBIN - TOTAL 0.1 mg/dL (0.2-1.3); CALCIUM 9.2 mg/dL (8.5-10.1); CARBON DIOXIDE 26.3 mmol/L (21.0-32.0); CREATININE - SERUM 2.9 mg/dL (0.6-1.3); POTASSIUM - SERUM 3.8 mmol/L (3.5-5.1); PROTEIN - SERUM 6.7 g/dL (6.4-8.2)
[2018-01-16 08:10] VITALS: BP 153/58
[2018-01-16 11:31] VITALS: BP 148/41
[2018-01-16 15:34] VITALS: BP 144/48
[2018-01-16 19:00] VITALS: BP 152/47
[2018-01-17] VITALS: BP 151/50
[2018-01-17 04:00] VITALS: BP 147/51
[2018-01-17 05:31] LABS: BASOPHILS 0.4 % (0-2); EOSINOPHILS 4.8 % (0-7); HEMATOCRIT 32.3 % (36.0-48.0); HEMOGLOBIN 9.9 g/dL (12-16); IMMATURE GRANULOCYTES 0.6 % (0-5); LYMPHOCYTES 21.5 % (15-50); MCH 29.7 pg (26.0-34.0); MCHC 30.7 g/dL (31.0-37.0); MEAN PLATELET VOLUME 11.1 fL (7.4-10.4); MONOCYTES 10.6 % (2-11); NEUTROPHILS 62.1 % (40-80); PLATELET COUNT 209 10x3/uL (130-400); RBC 3.33 10x6/uL (4.00-5.40); RDW 14.5 % (11.5-14.5); WBC 7.3 10x3/uL (4.8-10.8)
[2018-01-17 05:52] LABS: ALBUMIN 2.6 g/dL (3.4-5.0); ANION GAP 12.8 mmol/L (8-16); BILIRUBIN - TOTAL 0.2 mg/dL (0.2-1.3); CALCIUM 8.5 mg/dL (8.5-10.1); POTASSIUM - SERUM 3.8 mmol/L (3.5-5.1); PROTEIN - SERUM 6.7 g/dL (6.4-8.2)
[2018-01-17 08:24] VITALS: BP 147/51
[2018-01-17 11:36] VITALS: BP 142/60
[2018-01-17 15:41] VITALS: BP 143/65
[2018-01-17 20:00] VITALS: BP 107/52
[2018-01-18] VITALS: BP 110/50
[2018-01-18 04:00] VITALS: BP 112/58
[2018-01-18 05:56] LABS: BASOPHILS 0.4 % (0-2); EOSINOPHILS 5.7 % (0-7); HEMATOCRIT 34.2 % (36.0-48.0); HEMOGLOBIN 10.4 g/dL (12-16); IMMATURE GRANULOCYTES 0.3 % (0-5); LYMPHOCYTES 21.2 % (15-50); MCH 30.1 pg (26.0-34.0); MCHC 30.4 g/dL (31.0-37.0); MCV 98.8 fL (80.0-100.0); MEAN PLATELET VOLUME 11.3 fL (7.4-10.4); MONOCYTES 9.6 % (2-11); NEUTROPHILS 62.8 % (40-80); PLATELET COUNT 240 10x3/uL (130-400); RBC 3.46 10x6/uL (4.00-5.40); RDW 14.8 % (11.5-14.5); WBC 6.9 10x3/uL (4.8-10.8)
[2018-01-18 06:30] LABS: ALBUMIN 2.6 g/dL (3.4-5.0); ANION GAP 14.3 mmol/L (8-16); BILIRUBIN - TOTAL 0.26 mg/dL (0.2-1.3); CALCIUM 9.2 mg/dL (8.5-10.1); CARBON DIOXIDE 26.1 mmol/L (21.0-32.0); CREATININE - SERUM 3.1 mg/dL (0.6-1.3); PROTEIN - SERUM 6.9 g/dL (6.4-8.2)
[2018-01-18 06:37] LABS: POTASSIUM - SERUM 4.4 mmol/L (3.5-5.1)
[2018-01-18 08:42] VITALS: BP 135/57
[2018-01-18 11:43] VITALS: BP 128/43
[2018-01-18 16:12] LABS: AEROBE ID Final report (()); RESULT 1 Escherichia coli (())
[2018-01-18 17:20] VITALS: BP 117/52
[2018-01-18 20:00] VITALS: BP 125/36
[2018-01-18 20:11] VITALS: Ht 160 cm; Wt 157.3 kg
[2018-01-19 04:00] VITALS: BP 114/51
[2018-01-19 05:46] LABS: BASOPHILS 0.6 % (0-2); EOSINOPHILS 5.5 % (0-7); HEMATOCRIT 33.6 % (36.0-48.0); HEMOGLOBIN 10.3 g/dL (12-16); IMMATURE GRANULOCYTES 0.3 % (0-5); LYMPHOCYTES 24.5 % (15-50); MCH 29.9 pg (26.0-34.0); MCHC 30.7 g/dL (31.0-37.0); MCV 97.7 fL (80.0-100.0); NEUTROPHILS 60.1 % (40-80); PLATELET COUNT 246 10x3/uL (130-400); RBC 3.44 10x6/uL (4.00-5.40); RDW 14.8 % (11.5-14.5); WBC 6.5 10x3/uL (4.8-10.8)
[2018-01-19 06:16] LABS: ALBUMIN 2.6 g/dL (3.4-5.0); ANION GAP 14.1 mmol/L (8-16); BILIRUBIN - TOTAL 0.31 mg/dL (0.2-1.3); CALCIUM 9.2 mg/dL (8.5-10.1); CARBON DIOXIDE 26.6 mmol/L (21.0-32.0); CREATININE - SERUM 3.1 mg/dL (0.6-1.3); POTASSIUM - SERUM 4.7 mmol/L (3.5-5.1); PROTEIN - SERUM 6.8 g/dL (6.4-8.2)
[2018-01-19 08:30] VITALS: BP 106/51
[2018-01-19 11:53] VITALS: BP 156/55
[2018-01-19 16:02] VITALS: BP 140/44
[2018-01-19 20:00] VITALS: BP 136/61
[2018-01-20] VITALS: BP 140/68
[2018-01-20 04:00] VITALS: BP 138/70
[2018-01-20 06:19] LABS: BASOPHILS 0.7 % (0-2); EOSINOPHILS 4.9 % (0-7); HEMOGLOBIN 10.2 g/dL (12-16); IMMATURE GRANULOCYTES 0.3 % (0-5); LYMPHOCYTES 26.2 % (15-50); MCH 29.8 pg (26.0-34.0); MCHC 30.9 g/dL (31.0-37.0); MCV 96.5 fL (80.0-100.0); MEAN PLATELET VOLUME 10.8 fL (7.4-10.4); MONOCYTES 9.2 % (2-11); NEUTROPHILS 58.7 % (40-80); PLATELET COUNT 236 10x3/uL (130-400); RBC 3.42 10x6/uL (4.00-5.40); RDW 14.4 % (11.5-14.5); WBC 6.7 10x3/uL (4.8-10.8)
[2018-01-20 06:36] LABS: ANION GAP 12.6 mmol/L (8-16); CALCIUM 9.4 mg/dL (8.5-10.1); CARBON DIOXIDE 27.8 mmol/L (21.0-32.0); CREATININE - SERUM 3.1 mg/dL (0.6-1.3); POTASSIUM - SERUM 4.4 mmol/L (3.5-5.1)
[2018-01-20 08:05] VITALS: BP 151/55
[2018-01-20 11:21] VITALS: BP 163/53
[2018-01-20 19:00] VITALS: BP 95/55
[2018-01-21] VITALS: BP 122/47
[2018-01-21 03:35] VITALS: BP 127/63
[2018-01-21 05:14] LABS: BASOPHILS 0.1 % (0-2); EOSINOPHILS 0 % (0-7); HEMATOCRIT 32.9 % (36.0-48.0); HEMOGLOBIN 10.6 g/dL (12-16); IMMATURE GRANULOCYTES 0.4 % (0-5); LYMPHOCYTES 12.8 % (15-50); MCH 30.5 pg (26.0-34.0); MCHC 32.2 g/dL (31.0-37.0); MEAN PLATELET VOLUME 10.7 fL (7.4-10.4); MONOCYTES 3.6 % (2-11); NEUTROPHILS 83.1 % (40-80); PLATELET COUNT 253 10x3/uL (130-400); RBC 3.48 10x6/uL (4.00-5.40); RDW 14.1 % (11.5-14.5)
[2018-01-21 05:32] LABS: MCV 94.5 fL (80.0-100.0); WBC 8.4 10x3/uL (4.8-10.8)
[2018-01-21 05:45] LABS: ANION GAP 15.9 mmol/L (8-16); CALCIUM 9.3 mg/dL (8.5-10.1); CREATININE - SERUM 3.2 mg/dL (0.6-1.3); POTASSIUM - SERUM 4.9 mmol/L (3.5-5.1)
[2018-01-21 07:59] VITALS: BP 155/54
[2018-01-21 11:12] VITALS: BP 142/65
[2018-01-21 15:11] VITALS: BP 150/55
[2018-01-21 20:00] VITALS: BP 129/44
[2018-01-22 04:00] VITALS: BP 147/52
[2018-01-22 06:47] LABS: ANION GAP 13.5 mmol/L (8-16); CALCIUM 9.1 mg/dL (8.5-10.1); CARBON DIOXIDE 25.9 mmol/L (21.0-32.0); CREATININE - SERUM 3.5 mg/dL (0.6-1.3); POTASSIUM - SERUM 4.4 mmol/L (3.5-5.1)
[2018-01-22 07:15] LABS: BASOPHILS 0.4 % (0-2); EOSINOPHILS 1.3 % (0-7); HEMATOCRIT 33.2 % (36.0-48.0); HEMOGLOBIN 10.3 g/dL (12-16); IMMATURE GRANULOCYTES 0.2 % (0-5); LYMPHOCYTES 21.9 % (15-50); MCH 30.1 pg (26.0-34.0); MEAN PLATELET VOLUME 11.2 fL (7.4-10.4); MONOCYTES 7.8 % (2-11); NEUTROPHILS 68.4 % (40-80); PLATELET COUNT 259 10x3/uL (130-400); RBC 3.42 10x6/uL (4.00-5.40); RDW 14.3 % (11.5-14.5); WBC 8.4 10x3/uL (4.8-10.8)
[2018-01-22 07:23] LABS: MCV 97.1 fL (80.0-100.0)
[2018-01-22 08:53] VITALS: BP 160/51
[2018-01-22 13:36] VITALS: BP 143/56
[2018-01-22 16:27] VITALS: BP 166/70
[2018-01-22 20:00] VITALS: BP 134/45
[2018-01-23] VITALS: BP 124/43
[2018-01-23 06:04] LABS: BASOPHILS 0.6 % (0-2); EOSINOPHILS 4.5 % (0-7); HEMATOCRIT 33.2 % (36.0-48.0); HEMOGLOBIN 10.1 g/dL (12-16); IMMATURE GRANULOCYTES 0.4 % (0-5); LYMPHOCYTES 21.3 % (15-50); MCH 29.4 pg (26.0-34.0); MCHC 30.4 g/dL (31.0-37.0); MCV 96.8 fL (80.0-100.0); MEAN PLATELET VOLUME 11.1 fL (7.4-10.4); MONOCYTES 10.6 % (2-11); NEUTROPHILS 62.6 % (40-80); PLATELET COUNT 245 10x3/uL (130-400); RBC 3.43 10x6/uL (4.00-5.40); RDW 14.2 % (11.5-14.5); WBC 7.8 10x3/uL (4.8-10.8)
[2018-01-23 06:12] LABS: ANION GAP 13.7 mmol/L (8-16); CALCIUM 9.2 mg/dL (8.5-10.1); CARBON DIOXIDE 27.3 mmol/L (21.0-32.0); CREATININE - SERUM 3.5 mg/dL (0.6-1.3)
[2018-01-23 07:45] VITALS: BP 110/39
[2018-01-23 10:50] VITALS: BP 121/45
[2018-01-23 14:58] VITALS: BP 131/56
[2018-01-23 21:40] VITALS: BP 133/53
[2018-01-24 00:47] VITALS: BP 131/55
[2018-01-24 06:44] VITALS: BP 138/56
[2018-01-24 06:46] LABS: BASOPHILS 0.2 % (0-2); EOSINOPHILS 0.7 % (0-7); HEMOGLOBIN 10.5 g/dL (12-16); IMMATURE GRANULOCYTES 0.2 % (0-5); LYMPHOCYTES 8.7 % (15-50); MCH 29.7 pg (26.0-34.0); MCHC 30.9 g/dL (31.0-37.0); MCV 96.3 fL (80.0-100.0); MEAN PLATELET VOLUME 10.5 fL (7.4-10.4); MONOCYTES 2.1 % (2-11); NEUTROPHILS 88.1 % (40-80); PLATELET COUNT 213 10x3/uL (130-400); RBC 3.53 10x6/uL (4.00-5.40); RDW 14.1 % (11.5-14.5)
[2018-01-24 07:02] LABS: ANION GAP 15.7 mmol/L (8-16); CALCIUM 9.1 mg/dL (8.5-10.1); CARBON DIOXIDE 24.8 mmol/L (21.0-32.0); CREATININE - SERUM 3.6 mg/dL (0.6-1.3); POTASSIUM - SERUM 4.5 mmol/L (3.5-5.1)
[2018-01-24 08:11] VITALS: BP 121/68
[2018-01-24 11:26] VITALS: BP 124/72
[2018-01-24 16:53] VITALS: BP 119/74
[2018-01-24 19:50] VITALS: BP 148/69
[2018-01-25 05:55] LABS: BASOPHILS 0.2 % (0-2); EOSINOPHILS 1.1 % (0-7); HEMATOCRIT 30.2 % (36.0-48.0); HEMOGLOBIN 9.5 g/dL (12-16); IMMATURE GRANULOCYTES 0.7 % (0-5); LYMPHOCYTES 11.6 % (15-50); MCH 29.9 pg (26.0-34.0); MCHC 31.5 g/dL (31.0-37.0); MEAN PLATELET VOLUME 10.7 fL (7.4-10.4); MONOCYTES 8.9 % (2-11); NEUTROPHILS 77.5 % (40-80); PLATELET COUNT 228 10x3/uL (130-400); RBC 3.18 10x6/uL (4.00-5.40); RDW 13.9 % (11.5-14.5)
[2018-01-25 06:00] VITALS: BP 132/48
[2018-01-25 06:09] LABS: WBC 10.7 10x3/uL (4.8-10.8)
[2018-01-25 06:21] LABS: ANION GAP 13.5 mmol/L (8-16); CALCIUM 8.1 mg/dL (8.5-10.1); CARBON DIOXIDE 25.5 mmol/L (21.0-32.0); CREATININE - SERUM 3.2 mg/dL (0.6-1.3)
[2018-01-25 07:50] VITALS: BP 137/49
[2018-01-25 12:00] VITALS: BP 140/54
[2018-01-25 16:27] VITALS: BP 136/64
[2018-01-25 20:00] VITALS: BP 142/54
[2018-01-26] VITALS: BP 151/57
[2018-01-26 06:44] LABS: ANION GAP 13.6 mmol/L (8-16); CALCIUM 8.3 mg/dL (8.5-10.1); CARBON DIOXIDE 26.7 mmol/L (21.0-32.0); POTASSIUM - SERUM 4.3 mmol/L (3.5-5.1)
[2018-01-26 07:13] LABS: BASOPHILS 0.3 % (0-2); EOSINOPHILS 3.2 % (0-7); HEMATOCRIT 31.4 % (36.0-48.0); HEMOGLOBIN 9.8 g/dL (12-16); IMMATURE GRANULOCYTES 0.7 % (0-5); LYMPHOCYTES 11.3 % (15-50); MCH 30.2 pg (26.0-34.0); MCHC 31.2 g/dL (31.0-37.0); MCV 96.6 fL (80.0-100.0); MEAN PLATELET VOLUME 11.4 fL (7.4-10.4); MONOCYTES 6.4 % (2-11); NEUTROPHILS 78.1 % (40-80); PLATELET COUNT 249 10x3/uL (130-400); RBC 3.25 10x6/uL (4.00-5.40); RDW 14.4 % (11.5-14.5); WBC 11.2 10x3/uL (4.8-10.8)
[2018-01-26 09:37] VITALS: BP 153/55
[2018-01-26] MEDS ORDERED: MERREM 500 MG/500 MG IVPB (10:55)
[2018-01-26] MEDS ORDERED: FLORAJEN3 CAPS460 MG PO (11:27)
[2018-01-26] MEDS ORDERED: PREDNISONE20 MG PO (11:28)
[2018-01-26 11:50] VITALS: BP 129/66
[2018-01-26 16:20] VITALS: BP 148/59
== END 2018-01-26 17:42 | DRG 699 ==
LOC: D.ER 01:03 → D.M2 03:14 → D.EDHOLD 03:14 → D.M2 17:53
PROVIDERS: Emergency Medicine; Family Medicine; Internal Medicine Nephrology; Urology
PROC: BT14YZZ Fluoroscopy of Kidneys, Ureters and Bladder using Other Contrast (ICD-10-PCS; 2018-01-20)
PROC: 0T788DZ Dilation of Bilateral Ureters with Intraluminal Device, Via Natural or Artificial Opening Endoscopic (ICD-10-PCS; principal; 2018-01-20 12:35)
DX: T83.511A Infection and inflammatory reaction due to indwelling urethral catheter, initial encounter (principal); N17.9 Acute kidney failure, unspecified; I13.0 Hypertensive heart and chronic kidney disease with heart failure and stage 1 through stage 4 chronic kidney disease, or unspecified chronic kidney disease; N10 Acute pyelonephritis; N39.0 Urinary tract infection, site not specified; N18.9 Chronic kidney disease, unspecified; I50.9 Heart failure, unspecified; I25.10 Atherosclerotic heart disease of native coronary artery without angina pectoris; B37.2 Candidiasis of skin and nail

== ENCOUNTER 2018-01-26 16:56 | Inpatient (IN) | payer MEDICARE ==
[~2018-01-26] VITALS: Ht 160 cm; Wt 157.4 kg
--- NOTE | ~2018-01-26 | RHP ---
PATIENT: JAMIE BELL MEDICAL RECORD: [id number] ACCOUNT: [id number] LOCATION:[facility] D1117 : 46 ADMISSION DATE: 01/26/18 REHABILITATION HISTORY AND PHYSICAL EXAMINATION POST ADMISSION PHYSICIAN EXAMINATION DATE OF ADMISSION: 01/26/2018 ADMITTING DIAGNOSIS: Uremic myopathy. HISTORY OF PRESENT ILLNESS: The patient is a 67-year-old female patient admitted secondary to uremic myopathy with history of chronic kidney disease stage IV with a GFR of 16. She presented to the ED on 01/13/18. She complained of acute abdominal pain associated with nausea, vomiting and diarrheal stools. She was found to have okjgr-dq-mniyoew renal failure with creatinine of 3.1. CT of the abdomen and pelvis without IV contrast showed bilateral hydronephrosis and bilateral renal atrophy. The right side is more atrophic than the left. She was found to have Pseudomonas aeruginosa in her urine. She is being treated with Merrem [address] Kelly was consulted on 01/20/18. She went to the OR for cystoscopy, bilateral retrograde pyelograms, and bilateral ureteral stone and stent insertion. She has a history of prediabetes, chronic urinary retention. She has peripheral neuropathy in her feet due to her large body habitus. She cannot perform self catheterization. She has a chronic indwelling Bartlett catheter. Her creatinine is trending down to 3. She continues on Merrem IV daily for a total of 14 days of therapy. She has got prolonged immobility, progressive generalized weakness, especially in her lower extremities affecting her exercise tolerance. She is fatigued with limited flexion and extension of her lower extremities. Proximal muscle strength is also decreased with moderate to max assist for ADLs, moderate to max assist for sit to stand and bed to chair. She has ambulated 8 feet with 30% assist by PT using a rolling walker and a gait belt. She is highly motivated and has good family support to regain her strength and to return back home, which was moderately independent with assistive device before we have had her down here in the rehab several times. COMORBIDITIES: Include hkxio-wd-ovlqovo renal failure, urinary tract infection, hypertension, congestive heart failure, anemia of chronic disease, bilateral hydronephrosis, acute abdominal pain, pyelonephritis, eosinophilia, peripheral neuropathy, fibromyalgia, fatigue, weakness, depression, anxiety, obesity, urinary retention, and prediabetes. PAST MEDICAL HISTORY: Significant for neuropathy, fibromyalgia, cataract, CHF, hypertension, [place], chronic renal sufficiency, depression and anxiety. PAST SURGICAL HISTORY: Includes gallbladder surgery, appendectomy, hysterectomy, hernia repair, cardiac stent placement, carpal tunnel surgery. She has had a ganglion cyst removed. ALLERGIES: PENICILLIN, CLONIDINE. CURRENT MEDICATIONS: She is on nystatin powder. She is on Merrem for a total of 14 days. She is on prednisone 20 mg daily, Zemplar 1 mcg daily. She is on oxybutynin 5 mg daily, Protonix 40 mg daily, Flomax daily, Colace 100 mg daily, citalopram 20 mg daily, Norvasc 5 mg daily, and allopurinol 300 mg daily. She is on electrolyte protocol at this time, Desyrel 25 mg q.h.s., Zanaflex 4 mg b.i.d., Inderal 10 mg b.i.d., Pravachol 40 mg bedtime q.h.s., DuoNeb [facility], HISTORY AND PHYSICAL [id number] JAMIE BELL 10/325 one tab q.4 hours p.r.n., Pepcid 20 mg q.h.s., doxepin 10 mg q.h.s., aspirin/dipyridamole combination 1 cap b.i.d., Tylenol 650 mg q.4 hours p.r.n., and MiraLax daily. HABITS: No current alcohol or tobacco use. FAMILY HISTORY: Noncontributory. SOCIAL HISTORY: The patient hopes to return back home and get back to her prior level of functioning. REVIEW OF SYSTEMS: GENERAL: Does complain of weakness and fatigue. HEENT: She denies cold, cough, or congestion. CARDIOVASCULAR: Denies chest pain. PHYSICAL EXAMINATION: VITAL SIGNS: Stable, afebrile. GENERAL: A morbidly obese female, in no acute distress, alert upon exam. HEENT: Normocephalic and atraumatic. Mucosa moist. NECK: Supple. No lymphadenopathy. LUNGS: Clear on both sides, but she is noted to have decreased breath sounds. CARDIOVASCULAR: Regular rate and rhythm. ABDOMEN: Benign, although noted to be morbidly obese. EXTREMITIES: No clubbing, cyanosis or edema. NEUROLOGIC: Does have diffuse weakness. LABORATORY DATA: White count was 11.2, H&H of 10 and 33 and platelet count was noted to be 250. Sodium is 140, potassium 4.4, BUN and creatinine of 58/2.6 and blood sugar is noted to be 83. ASSESSMENT: This is a 67-year-old female patient admitted to rehab with a working diagnosis of uremic myopathy. The patient has potential to make improvement and we instituted the following multidisciplinary therapies including to but not limited to physical, occupational, respiratory, speech, nutritional services, prosthetics and orthotics. Given her complex condition and risk for more complications, rehabilitation services cannot be provided at a low level of care such as a care home facility. PLAN: 1. Admit to [facility] rehab for intensive inpatient therapy to include the following disciplines: A. Physical therapy to improve gait, all transfer skills and bed mobility to a modified independent level. B. Occupational therapy to improve activities of daily living to a modified independent level. C. Case management to assist with discharge planning and placement options. D. Nutrition to assist with nutritional needs. E. Rehabilitation nursing to assist in monitoring the patient's underlying medical conditions and to assist with any type of bowel or bladder management. 2. The patient's current medication and medical care will be continued. 3. The patient will be placed on standard fall precautions. 4. The patient's estimated length of stay is approximately 7-10 days. 5. Discuss this patient during care team staff meeting this week. HISTORY AND PHYSICAL [id number] BELLJAMIE WELLS TRANSINT:[id number] Voice Confirmation ID: [id number] DOCUMENT ID: [id number] VISHAL notes whether there has been none or any medical/functional change since admission: - No change since preadmission screen. VISHAL attests patient continues to be appropriate for IRF: - Continues to be appropriate. JONATHAN ALMAZAN MD at 1055 CC: [id number] DICTATION DATE: 01/27/18905 ALARM OPERATOR: 01/27/18 0957 [place] [address]
--- NOTE | ~2018-01-26 | DS ---
PATIENT:JAMIE BELL :46 MEDICAL RECORD: [id number] DISCHARGE SUMMARY ADMISSION DATE: 01/26/18 DISCHARGE DATE: 02/09/18 This is a discharge dated 02/09/2018 from inpatient rehabilitation. PRIMARY DIAGNOSIS: Decreased functional ability and ability to provide activities of daily living secondary to uremic myopathy. SECONDARY DIAGNOSES: 1. Mzzul-no-pmjhblb renal failure. 2. Ureteral stones. 3. Chronic urinary retention. 4. Urinary tract infection. 5. Hypertension. 6. Congestive heart failure. 7. Peripheral neuropathy. 8. Hyperkalemia. 9. Fibromyalgia. 10. Obesity. 11. Anemia. 12. Anxiety/depression. HOSPITAL COURSE: Full H&P is located elsewhere on the chart on this 67-year-old female who was admitted to inpatient rehab for physical therapy and occupational therapy to improve gait, transfer skills, bed mobility, and activities of daily living to a modified independent level. She was evaluated by PT and OT and their plans of care were followed. She required intermediate care for observation and assessment and medication administration. She was continued on appropriate home medications. She had electrolytes managed by protocol. She had a Bartlett catheter. She developed UTI and was started on Macrobid for antibiotic coverage. She was cooperative with therapies, progressing towards goals. Case management was involved for discharge planning. She was considered stable for discharge on 02/09/2018. DISCHARGE MEDICATIONS: As per discharge medication reconciliation. DISCHARGE DISPOSITION: The patient is discharged home. She will continue her current diet and level of activity. She will have home health for continued PT, OT and nursing care. She had her Bartlett catheter changed out prior to discharge. She will follow with primary care and specialists as directed. At least 30 minutes was spent in this discharge activity. TRANSINT:[id number] Voice Confirmation ID: [id number] DOCUMENT ID: [id number] Dictated By: MATT CARUSO I have interviewed/examined the above patient and agree with these documented findings. DISCHARGE SUMMARY REPORT [id number] JAMIE BELL SCOTT MD at 1511 at 1512 CC: [id number] DICTATION DATE: 02/28/18 1830 RIG MECHANIC: 03/01/18 1218 DIS IN 02/09/18 [facility] [address] [place] [address]
[~2018-01-26 16:56] MED LIST changes: +FLORAJEN3 CAPS460 MG PO; +MERREM 500 MG/500 MG IVPB; +PREDNISONE20 MG PO
[2018-01-26 19:48] VITALS: BP 150/56; BMI 61.6
[2018-01-26 23:19] VITALS: BP 133/82
[2018-01-27 06:28] LABS: BASOPHILS 0.4 % (0-2); EOSINOPHILS 5.2 % (0-7); HEMATOCRIT 32.7 % (36.0-48.0); HEMOGLOBIN 10.1 g/dL (12-16); IMMATURE GRANULOCYTES 0.9 % (0-5); LYMPHOCYTES 16.6 % (15-50); MCH 29.8 pg (26.0-34.0); MCHC 30.9 g/dL (31.0-37.0); MCV 96.5 fL (80.0-100.0); MEAN PLATELET VOLUME 11.3 fL (7.4-10.4); MONOCYTES 9.2 % (2-11); NEUTROPHILS 67.7 % (40-80); PLATELET COUNT 250 10x3/uL (130-400); RBC 3.39 10x6/uL (4.00-5.40); RDW 14.4 % (11.5-14.5); WBC 11.2 10x3/uL (4.8-10.8)
[2018-01-27 06:40] LABS: ANION GAP 13.3 mmol/L (8-16); CALCIUM 8.6 mg/dL (8.5-10.1); CARBON DIOXIDE 24.1 mmol/L (21.0-32.0); CREATININE - SERUM 2.6 mg/dL (0.6-1.3); POTASSIUM - SERUM 4.4 mmol/L (3.5-5.1)
[2018-01-27 09:12] VITALS: BP 126/63
[2018-01-27 19:30] VITALS: BP 153/50
[2018-01-28 08:00] VITALS: BP 166/70
[2018-01-28 13:19] VITALS: Ht 160 cm; Wt 157.4 kg
[2018-01-28 21:17] VITALS: BP 129/48
[2018-01-29 06:11] LABS: BASOPHILS 0.3 % (0-2); EOSINOPHILS 3.7 % (0-7); HEMOGLOBIN 9.3 g/dL (12-16); IMMATURE GRANULOCYTES 0.8 % (0-5); LYMPHOCYTES 15.8 % (15-50); MCV 96.8 fL (80.0-100.0); MEAN PLATELET VOLUME 11.5 fL (7.4-10.4); MONOCYTES 11.6 % (2-11); NEUTROPHILS 67.8 % (40-80); PLATELET COUNT 238 10x3/uL (130-400); RDW 14.6 % (11.5-14.5); WBC 8.7 10x3/uL (4.8-10.8)
[2018-01-29 06:21] LABS: ANION GAP 13.9 mmol/L (8-16); CALCIUM 8.5 mg/dL (8.5-10.1); CARBON DIOXIDE 24.7 mmol/L (21.0-32.0); CREATININE - SERUM 2.8 mg/dL (0.6-1.3); POTASSIUM - SERUM 4.6 mmol/L (3.5-5.1)
[2018-01-29 08:09] VITALS: BP 128/56
[2018-01-29 20:43] VITALS: BP 159/54
[2018-01-30 09:01] VITALS: BP 136/76
[2018-01-31 00:28] VITALS: BP 174/55
[2018-01-31 09:47] VITALS: BP 168/48
[2018-01-31 23:58] VITALS: BP 152/60
[2018-02-01 07:12] LABS: BASOPHILS 0.5 % (0-2); EOSINOPHILS 3.1 % (0-7); HEMATOCRIT 30.9 % (36.0-48.0); HEMOGLOBIN 9.5 g/dL (12-16); IMMATURE GRANULOCYTES 1.4 % (0-5); LYMPHOCYTES 14.9 % (15-50); MCH 30.3 pg (26.0-34.0); MCHC 30.7 g/dL (31.0-37.0); MCV 98.4 fL (80.0-100.0); MONOCYTES 10.6 % (2-11); NEUTROPHILS 69.5 % (40-80); RBC 3.14 10x6/uL (4.00-5.40); RDW 15.1 % (11.5-14.5); WBC 8.6 10x3/uL (4.8-10.8)
[2018-02-01 07:20] LABS: CALCIUM 8.6 mg/dL (8.5-10.1); CARBON DIOXIDE 24.2 mmol/L (21.0-32.0); CREATININE - SERUM 2.3 mg/dL (0.6-1.3); POTASSIUM - SERUM 5.2 mmol/L (3.5-5.1)
[2018-02-01 07:33] LABS: PLATELET COUNT 287 10x3/uL (130-400)
[2018-02-01 08:00] VITALS: BP 110/62
[2018-02-01 16:45] LABS: APPEARANCE TURBID (CLEAR); BILIRUBIN NEGATIVE (NEGATIVE); COLOR YELLOW (YELLOW); GLUCOSE NEGATIVE (NEGATIVE); KETONE NEGATIVE (NEGATIVE); NITRITE NEGATIVE (NEGATIVE); PROTEIN 1+ mg/dL (NEGATIVE); UROBILINOGEN NORMAL (NORMAL)
[2018-02-01 16:46] LABS: BACTERIA MANY /hpf (NONE SEEN); EPITHELIAL CELLS 0-5 /hpf (0-5); MUCUS <1+ /lpf (NONE SEEN); RED CELLS - URINE 0-5 /hpf (0-5); WHITE CELLS - URINE >50 /hpf (0-5); YEAST >1+ WITH HYPHAE /hpf (NONE SEEN)
[2018-02-01 19:30] VITALS: BP 153/69
[2018-02-02 08:17] VITALS: BP 175/61
[2018-02-02 19:53] VITALS: BP 141/79
[2018-02-03 07:35] LABS: BASOPHILS 0.5 % (0-2); EOSINOPHILS 1.6 % (0-7); HEMATOCRIT 31.6 % (36.0-48.0); HEMOGLOBIN 9.7 g/dL (12-16); IMMATURE GRANULOCYTES 0.9 % (0-5); LYMPHOCYTES 21.6 % (15-50); MCHC 30.7 g/dL (31.0-37.0); MCV 97.8 fL (80.0-100.0); MEAN PLATELET VOLUME 11.3 fL (7.4-10.4); MONOCYTES 11.6 % (2-11); NEUTROPHILS 63.8 % (40-80); PLATELET COUNT 279 10x3/uL (130-400); RBC 3.23 10x6/uL (4.00-5.40); RDW 15.3 % (11.5-14.5); WBC 8.1 10x3/uL (4.8-10.8)
[2018-02-03 07:41] LABS: ANION GAP 11.8 mmol/L (8-16); CALCIUM 8.8 mg/dL (8.5-10.1); CARBON DIOXIDE 25.2 mmol/L (21.0-32.0); CREATININE - SERUM 2.2 mg/dL (0.6-1.3)
[2018-02-03 08:00] VITALS: BP 148/68
[2018-02-03 20:30] VITALS: BP 114/67
[2018-02-04 08:11] VITALS: BP 163/52
[2018-02-04 20:45] VITALS: BP 156/54
[2018-02-05 06:12] LABS: BASOPHILS 0.5 % (0-2); EOSINOPHILS 3.6 % (0-7); HEMATOCRIT 27.5 % (36.0-48.0); HEMOGLOBIN 8.2 g/dL (12-16); IMMATURE GRANULOCYTES 0.5 % (0-5); LYMPHOCYTES 15.5 % (15-50); MCH 29.9 pg (26.0-34.0); MCHC 29.8 g/dL (31.0-37.0); MEAN PLATELET VOLUME 11.3 fL (7.4-10.4); MONOCYTES 11.1 % (2-11); NEUTROPHILS 68.8 % (40-80); RBC 2.74 10x6/uL (4.00-5.40); RDW 15.7 % (11.5-14.5); WBC 8.4 10x3/uL (4.8-10.8)
[2018-02-05 06:32] LABS: MCV 100.4 fL (80.0-100.0); PLATELET COUNT 220 10x3/uL (130-400)
[2018-02-05 06:34] LABS: ANION GAP 13.2 mmol/L (8-16); CALCIUM 8.4 mg/dL (8.5-10.1); CARBON DIOXIDE 24.1 mmol/L (21.0-32.0); CREATININE - SERUM 2.4 mg/dL (0.6-1.3); POTASSIUM - SERUM 5.3 mmol/L (3.5-5.1)
[2018-02-05 08:56] VITALS: BP 158/51
[2018-02-05 19:25] VITALS: BP 175/73
[2018-02-06 09:37] VITALS: BP 156/49
[2018-02-06 19:10] VITALS: BP 99/64
[2018-02-07 07:52] VITALS: BP 129/40
[2018-02-07 22:11] VITALS: BP 169/49
[2018-02-08 07:41] VITALS: BP 144/58
[2018-02-08 18:52] VITALS: BP 138/31
[2018-02-08 22:04] LABS: BASOPHILS 0.6 % (0-2); EOSINOPHILS 7.6 % (0-7); HEMATOCRIT 27.6 % (36.0-48.0); HEMOGLOBIN 8.4 g/dL (12-16); IMMATURE GRANULOCYTES 0.4 % (0-5); LYMPHOCYTES 22.1 % (15-50); MCH 29.9 pg (26.0-34.0); MCHC 30.4 g/dL (31.0-37.0); MCV 98.2 fL (80.0-100.0); MEAN PLATELET VOLUME 11.1 fL (7.4-10.4); MONOCYTES 10.7 % (2-11); NEUTROPHILS 58.6 % (40-80); PLATELET COUNT 203 10x3/uL (130-400); RBC 2.81 10x6/uL (4.00-5.40); RDW 15.3 % (11.5-14.5); WBC 5.3 10x3/uL (4.8-10.8)
[2018-02-08 22:09] LABS: ANION GAP 12.1 mmol/L (8-16); CALCIUM 8.5 mg/dL (8.5-10.1); CARBON DIOXIDE 25.5 mmol/L (21.0-32.0); POTASSIUM - SERUM 4.6 mmol/L (3.5-5.1)
[2018-02-09 08:09] VITALS: BP 152/50
== END 2018-02-09 14:07 | disposition home health service (06) | DRG 92 ==
LOC: D.REHAB 16:56
PROVIDERS: Emergency Medicine; Family Medicine
DX: G72.89 Other specified myopathies (principal); I13.0 Hypertensive heart and chronic kidney disease with heart failure and stage 1 through stage 4 chronic kidney disease, or unspecified chronic kidney disease; N17.9 Acute kidney failure, unspecified; N39.0 Urinary tract infection, site not specified; N13.30 Unspecified hydronephrosis; N12 Tubulo-interstitial nephritis, not specified as acute or chronic; N18.4 Chronic kidney disease, stage 4 (severe); I50.9 Heart failure, unspecified; D63.1 Anemia in chronic kidney disease; D72.1 Eosinophilia; G62.9 Polyneuropathy, unspecified; M79.7 Fibromyalgia; R53.83 Other fatigue; R53.1 Weakness; R33.9 Retention of urine, unspecified; E66.9 Obesity, unspecified; F41.8 Other specified anxiety disorders

== ENCOUNTER → 2018-03-24 15:42 | Outpatient (CLI) | payer MEDICARE ==
[2018-01-28 13:19] VITALS: BMI 61.4
[2018-03-24 16:37] LABS: APPEARANCE HAZY (CLEAR); BILIRUBIN NEGATIVE (NEGATIVE); COLOR YELLOW (YELLOW); GLUCOSE NEGATIVE (NEGATIVE); KETONE NEGATIVE (NEGATIVE); NITRITE NEGATIVE (NEGATIVE); PROTEIN NEGATIVE (NEGATIVE); UROBILINOGEN NORMAL (NORMAL)
[2018-03-24 16:38] LABS: EPITHELIAL CELLS 0-5 /hpf (0-5); RED CELLS - URINE 0-5 /hpf (0-5)
[2018-03-24 16:39] LABS: BACTERIA MODERATE /hpf (NONE SEEN)
== END | disposition home or self-care (01) ==
LOC: D.LABREF 15:42
PROVIDERS: Family Medicine
DX: R30.0 Dysuria (principal); N31.9 Neuromuscular dysfunction of bladder, unspecified; R56.9 Unspecified convulsions

== ENCOUNTER 2018-05-06 14:59 | Inpatient (IN) | payer MEDICARE ==
[~2018-05-06] VITALS: Ht 160 cm; Wt 138.2 kg
[2018-05-06] MEDS ORDERED: LYRICA150 MG PO (15:06)
[2018-05-06] MEDS ORDERED: TRILEPTAL300 MG PO (15:06)
[2018-05-06] MEDS ORDERED: CELEXA20 MG PO (15:07)
[2018-05-06 15:26] LABS: APPEARANCE TURBID (CLEAR); BACTERIA MODERATE /hpf (NONE SEEN); BILIRUBIN NEGATIVE (NEGATIVE); COLOR STRAW (YELLOW); GLUCOSE NEGATIVE (NEGATIVE); KETONE NEGATIVE (NEGATIVE); NITRITE POSITIVE (NEGATIVE); PROTEIN 1+ mg/dL (NEGATIVE); UROBILINOGEN NORMAL (NORMAL); WHITE CELLS - URINE >50 /hpf (0-5)
[2018-05-06 15:30] VITALS: BP 133/55
[2018-05-06 16:00] VITALS: BP 161/50
[2018-05-06 16:30] VITALS: BP 165/59
[2018-05-06 17:30] VITALS: BP 169/82
[2018-05-06 17:34] LABS: BASOPHILS 0.4 % (0-2); EOSINOPHILS 3.4 % (0-7); HEMATOCRIT 31.7 % (36.0-48.0); HEMOGLOBIN 9.8 g/dL (12-16); IMMATURE GRANULOCYTES 0.3 % (0-5); LYMPHOCYTES 21.8 % (15-50); MCH 29.6 pg (26.0-34.0); MCHC 30.9 g/dL (31.0-37.0); MCV 95.8 fL (80.0-100.0); MEAN PLATELET VOLUME 9.9 fL (7.4-10.4); MONOCYTES 10.3 % (2-11); NEUTROPHILS 63.8 % (40-80); PLATELET COUNT 244 10x3/uL (130-400); RBC 3.31 10x6/uL (4.00-5.40); RDW 14.7 % (11.5-14.5)
[2018-05-06 18:00] VITALS: BP 155/63
[2018-05-06 18:20] LABS: ALBUMIN 2.9 g/dL (3.4-5.0); ANION GAP 13.2 mmol/L (8-16); BILIRUBIN - TOTAL 0.28 mg/dL (0.2-1.3); CALCIUM 9.8 mg/dL (8.5-10.1); CARBON DIOXIDE 26.3 mmol/L (21.0-32.0); CREATININE - SERUM 3.5 mg/dL (0.6-1.3); POTASSIUM - SERUM 4.5 mmol/L (3.5-5.1); PROTEIN - SERUM 7.8 g/dL (6.4-8.2)
[2018-05-06 23:13] VITALS: BP 148/44; BMI 53.9
[2018-05-07] VITALS: BP 135/55
[2018-05-07 04:00] VITALS: BP 105/57
[2018-05-07 07:00] VITALS: BP 154/54
[2018-05-07 12:26] VITALS: BMI 53.8
[2018-05-07 12:31] VITALS: BP 136/57
[2018-05-07 20:07] VITALS: BP 124/45
[2018-05-08 00:34] VITALS: BP 129/47
[2018-05-08 05:19] VITALS: BP 138/47
[2018-05-08 08:18] VITALS: BP 128/45
[2018-05-08 12:01] VITALS: BP 116/40
[2018-05-08 15:47] VITALS: BP 127/55
[2018-05-08 16:06] LABS: BASOPHILS 0.4 % (0-2); EOSINOPHILS 5.8 % (0-7); HEMATOCRIT 29.2 % (36.0-48.0); HEMOGLOBIN 8.8 g/dL (12-16); IMMATURE GRANULOCYTES 0.2 % (0-5); LYMPHOCYTES 14.5 % (15-50); MCH 29.1 pg (26.0-34.0); MCHC 30.1 g/dL (31.0-37.0); MCV 96.7 fL (80.0-100.0); MEAN PLATELET VOLUME 10.3 fL (7.4-10.4); MONOCYTES 9.6 % (2-11); NEUTROPHILS 69.5 % (40-80); PLATELET COUNT 183 10x3/uL (130-400); RBC 3.02 10x6/uL (4.00-5.40); RDW 14.7 % (11.5-14.5); WBC 5.5 10x3/uL (4.8-10.8)
[2018-05-08 16:20] LABS: ANION GAP 12.8 mmol/L (8-16); CALCIUM 8.6 mg/dL (8.5-10.1); CREATININE - SERUM 3.3 mg/dL (0.6-1.3); POTASSIUM - SERUM 4.8 mmol/L (3.5-5.1)
[2018-05-08 20:30] VITALS: BP 115/62
[2018-05-09 00:30] VITALS: BP 128/50
[2018-05-09 04:30] VITALS: BP 144/50
[2018-05-09 06:05] LABS: BASOPHILS 0.3 % (0-2); HEMATOCRIT 28.4 % (36.0-48.0); HEMOGLOBIN 8.6 g/dL (12-16); IMMATURE GRANULOCYTES 0.3 % (0-5); LYMPHOCYTES 20.8 % (15-50); MCH 29.3 pg (26.0-34.0); MCHC 30.3 g/dL (31.0-37.0); MCV 96.6 fL (80.0-100.0); MEAN PLATELET VOLUME 10.1 fL (7.4-10.4); MONOCYTES 10.5 % (2-11); NEUTROPHILS 62.1 % (40-80); PLATELET COUNT 197 10x3/uL (130-400); RBC 2.94 10x6/uL (4.00-5.40); RDW 14.6 % (11.5-14.5); WBC 6.1 10x3/uL (4.8-10.8)
[2018-05-09 06:39] LABS: ANION GAP 13.8 mmol/L (8-16); CALCIUM 8.8 mg/dL (8.5-10.1); CARBON DIOXIDE 20.8 mmol/L (21.0-32.0); CREATININE - SERUM 3.2 mg/dL (0.6-1.3); POTASSIUM - SERUM 4.6 mmol/L (3.5-5.1); VANCOMYCIN - RANDOM 18.2 ug/mL (10.0-20.0)
[2018-05-09 07:49] VITALS: BP 141/32
[2018-05-09 11:50] VITALS: BP 191/69
[2018-05-09 15:56] VITALS: BP 153/50
[2018-05-09 20:30] VITALS: BP 141/50
[2018-05-10 00:30] VITALS: BP 90/50
[2018-05-10 04:30] VITALS: BP 129/50
[2018-05-10 06:37] LABS: BASOPHILS 0.4 % (0-2); EOSINOPHILS 5.5 % (0-7); HEMATOCRIT 27.7 % (36.0-48.0); HEMOGLOBIN 8.4 g/dL (12-16); IMMATURE GRANULOCYTES 0.4 % (0-5); LYMPHOCYTES 23.7 % (15-50); MCH 29.6 pg (26.0-34.0); MCHC 30.3 g/dL (31.0-37.0); MCV 97.5 fL (80.0-100.0); MONOCYTES 10.8 % (2-11); NEUTROPHILS 59.2 % (40-80); PLATELET COUNT 176 10x3/uL (130-400); RBC 2.84 10x6/uL (4.00-5.40); WBC 4.9 10x3/uL (4.8-10.8)
[2018-05-10 06:55] LABS: CALCIUM 8.7 mg/dL (8.5-10.1); CARBON DIOXIDE 23.9 mmol/L (21.0-32.0); CREATININE - SERUM 2.8 mg/dL (0.6-1.3); POTASSIUM - SERUM 4.9 mmol/L (3.5-5.1); VANCOMYCIN - RANDOM 12.8 ug/mL (10.0-20.0)
[2018-05-10 09:03] VITALS: BP 145/61
[2018-05-10 12:39] VITALS: BP 146/50
[2018-05-10 16:14] VITALS: BP 147/53
[2018-05-10 20:00] VITALS: BP 132/74
[2018-05-11] VITALS: BP 126/58
[2018-05-11 05:26] LABS: BASOPHILS 0.6 % (0-2); EOSINOPHILS 4.5 % (0-7); HEMATOCRIT 28.5 % (36.0-48.0); HEMOGLOBIN 8.5 g/dL (12-16); IMMATURE GRANULOCYTES 0.4 % (0-5); MCH 29.1 pg (26.0-34.0); MCHC 29.8 g/dL (31.0-37.0); MCV 97.6 fL (80.0-100.0); MEAN PLATELET VOLUME 10.9 fL (7.4-10.4); MONOCYTES 11.5 % (2-11); PLATELET COUNT 177 10x3/uL (130-400); RBC 2.92 10x6/uL (4.00-5.40); RDW 14.7 % (11.5-14.5); WBC 5.4 10x3/uL (4.8-10.8)
[2018-05-11 05:39] LABS: ANION GAP 13.4 mmol/L (8-16); CALCIUM 8.8 mg/dL (8.5-10.1); CARBON DIOXIDE 23.6 mmol/L (21.0-32.0); CREATININE - SERUM 2.5 mg/dL (0.6-1.3); VANCOMYCIN - RANDOM 14.9 ug/mL (10.0-20.0)
[2018-05-11 06:17] VITALS: BP 114/49
[2018-05-11 07:00] VITALS: BP 142/65
[2018-05-11 11:00] VITALS: BP 123/56
[2018-05-11 15:49] VITALS: BP 127/52
[2018-05-11 21:53] VITALS: BP 118/62
[2018-05-12 00:49] VITALS: BP 130/48
[2018-05-12 05:05] LABS: BASOPHILS 0.4 % (0-2); EOSINOPHILS 3.6 % (0-7); HEMATOCRIT 28.9 % (36.0-48.0); HEMOGLOBIN 8.8 g/dL (12-16); IMMATURE GRANULOCYTES 0.4 % (0-5); LYMPHOCYTES 19.6 % (15-50); MCH 29.2 pg (26.0-34.0); MCHC 30.4 g/dL (31.0-37.0); MEAN PLATELET VOLUME 10.5 fL (7.4-10.4); MONOCYTES 13.2 % (2-11); NEUTROPHILS 62.8 % (40-80); PLATELET COUNT 191 10x3/uL (130-400); RBC 3.01 10x6/uL (4.00-5.40); RDW 14.6 % (11.5-14.5); WBC 5.5 10x3/uL (4.8-10.8)
[2018-05-12 05:17] VITALS: BP 132/63
[2018-05-12 05:32] LABS: ANION GAP 13.6 mmol/L (8-16); CALCIUM 9.3 mg/dL (8.5-10.1); CARBON DIOXIDE 23.5 mmol/L (21.0-32.0); CREATININE - SERUM 2.3 mg/dL (0.6-1.3); POTASSIUM - SERUM 5.1 mmol/L (3.5-5.1)
[2018-05-12 09:11] VITALS: BP 145/70
[2018-05-12 12:35] VITALS: BP 133/62
[2018-05-12 20:00] VITALS: BP 113/53
[2018-05-12 23:22] LABS: APPEARANCE CLOUDY (CLEAR); BILIRUBIN NEGATIVE (NEGATIVE); COLOR YELLOW (YELLOW); GLUCOSE NEGATIVE (NEGATIVE); KETONE NEGATIVE (NEGATIVE); NITRITE NEGATIVE (NEGATIVE); PH 5.5 (5.0-6.0); PROTEIN 1+ mg/dL (NEGATIVE); UROBILINOGEN NORMAL (NORMAL)
[2018-05-12 23:32] LABS: BACTERIA MODERATE /hpf (NONE SEEN); EPITHELIAL CELLS OCC /hpf (0-5); MUCUS <1+ /lpf (NONE SEEN); WHITE CELLS - URINE >50 /hpf (0-5)
[2018-05-13] VITALS: BP 141/62
[2018-05-13 04:00] VITALS: BP 138/65
[2018-05-13 06:31] LABS: BASOPHILS 0.2 % (0-2); HEMATOCRIT 25.9 % (36.0-48.0); HEMOGLOBIN 8.1 g/dL (12-16); IMMATURE GRANULOCYTES 0.5 % (0-5); LYMPHOCYTES 10.5 % (15-50); MCH 29.7 pg (26.0-34.0); MCHC 31.3 g/dL (31.0-37.0); MCV 94.9 fL (80.0-100.0); MEAN PLATELET VOLUME 9.6 fL (7.4-10.4); NEUTROPHILS 76.8 % (40-80); PLATELET COUNT 166 10x3/uL (130-400); RBC 2.73 10x6/uL (4.00-5.40); RDW 14.6 % (11.5-14.5); WBC 5.9 10x3/uL (4.8-10.8)
[2018-05-13 06:50] LABS: ANION GAP 14.2 mmol/L (8-16); CALCIUM 9.3 mg/dL (8.5-10.1); CARBON DIOXIDE 21.3 mmol/L (21.0-32.0); CREATININE - SERUM 2.1 mg/dL (0.6-1.3); POTASSIUM - SERUM 4.5 mmol/L (3.5-5.1)
[2018-05-13 08:06] VITALS: BP 131/63
[2018-05-13 11:44] VITALS: BP 100/52
[2018-05-13 15:39] VITALS: BP 167/64
[2018-05-13 16:35] LABS: APPEARANCE HAZY (CLEAR); BILIRUBIN NEGATIVE (NEGATIVE); COLOR STRAW (YELLOW); GLUCOSE NEGATIVE (NEGATIVE); KETONE NEGATIVE (NEGATIVE); NITRITE NEGATIVE (NEGATIVE); PROTEIN 1+ mg/dL (NEGATIVE); UROBILINOGEN NORMAL (NORMAL)
[2018-05-13 16:36] LABS: RED CELLS - URINE 0-5 /hpf (0-5); WHITE CELLS - URINE 25-50 /hpf (0-5)
[2018-05-13 16:38] LABS: BACTERIA MODERATE /hpf (NONE SEEN); EPITHELIAL CELLS 0-5 /hpf (0-5)
[2018-05-13 19:15] VITALS: Ht 160 cm; Wt 138.2 kg
[2018-05-13 20:00] VITALS: BP 133/59
[2018-05-14] VITALS: BP 140/69
[2018-05-14 04:00] VITALS: BP 140/64
[2018-05-14 07:02] LABS: BASOPHILS 0.2 % (0-2); EOSINOPHILS 2.3 % (0-7); HEMATOCRIT 26.2 % (36.0-48.0); HEMOGLOBIN 8.1 g/dL (12-16); IMMATURE GRANULOCYTES 0.5 % (0-5); LYMPHOCYTES 7.5 % (15-50); MCH 29.6 pg (26.0-34.0); MCHC 30.9 g/dL (31.0-37.0); MCV 95.6 fL (80.0-100.0); MEAN PLATELET VOLUME 9.8 fL (7.4-10.4); MONOCYTES 10.1 % (2-11); NEUTROPHILS 79.4 % (40-80); PLATELET COUNT 168 10x3/uL (130-400); RBC 2.74 10x6/uL (4.00-5.40); RDW 14.8 % (11.5-14.5); WBC 6.5 10x3/uL (4.8-10.8)
[2018-05-14 07:22] LABS: CARBON DIOXIDE 22.1 mmol/L (21.0-32.0); CREATININE - SERUM 2.2 mg/dL (0.6-1.3); POTASSIUM - SERUM 4.1 mmol/L (3.5-5.1)
[2018-05-14 08:15] VITALS: BP 163/53
[2018-05-14 11:46] VITALS: BP 167/60
[2018-05-14 15:55] VITALS: BP 162/53
[2018-05-14 20:00] VITALS: BP 137/56
[2018-05-15] VITALS: BP 166/53
[2018-05-15 06:14] LABS: ANION GAP 13.7 mmol/L (8-16); CALCIUM 9.8 mg/dL (8.5-10.1); CARBON DIOXIDE 22.3 mmol/L (21.0-32.0); CREATININE - SERUM 1.9 mg/dL (0.6-1.3)
[2018-05-15 06:19] LABS: BASOPHILS 0.5 % (0-2); EOSINOPHILS 3.9 % (0-7); HEMATOCRIT 25.3 % (36.0-48.0); HEMOGLOBIN 7.8 g/dL (12-16); IMMATURE GRANULOCYTES 0.5 % (0-5); LYMPHOCYTES 13.5 % (15-50); MCH 29.3 pg (26.0-34.0); MCHC 30.8 g/dL (31.0-37.0); MCV 95.1 fL (80.0-100.0); MEAN PLATELET VOLUME 10.1 fL (7.4-10.4); MONOCYTES 13.3 % (2-11); NEUTROPHILS 68.3 % (40-80); PLATELET COUNT 161 10x3/uL (130-400); RBC 2.66 10x6/uL (4.00-5.40); RDW 14.9 % (11.5-14.5); WBC 6.2 10x3/uL (4.8-10.8)
[2018-05-15 08:52] VITALS: BP 158/57
[2018-05-15 11:35] VITALS: BP 156/54
[2018-05-15 15:49] VITALS: BP 165/60
[2018-05-15 18:07] LABS: AEROBE ID Final report (()); RESULT 1 Escherichia coli (())
[2018-05-15 21:42] VITALS: BP 130/68
[2018-05-16 01:22] VITALS: BP 149/76
[2018-05-16 05:37] VITALS: BP 143/61
[2018-05-16 05:44] LABS: BASOPHILS 0.8 % (0-2); EOSINOPHILS 5.3 % (0-7); HEMATOCRIT 27.5 % (36.0-48.0); HEMOGLOBIN 8.3 g/dL (12-16); IMMATURE GRANULOCYTES 0.6 % (0-5); LYMPHOCYTES 16.1 % (15-50); MCH 28.7 pg (26.0-34.0); MCHC 30.2 g/dL (31.0-37.0); MCV 95.2 fL (80.0-100.0); MEAN PLATELET VOLUME 9.9 fL (7.4-10.4); MONOCYTES 14.1 % (2-11); NEUTROPHILS 63.1 % (40-80); PLATELET COUNT 187 10x3/uL (130-400); RBC 2.89 10x6/uL (4.00-5.40); RDW 14.6 % (11.5-14.5); WBC 5.3 10x3/uL (4.8-10.8)
[2018-05-16 05:56] LABS: CALCIUM 9.5 mg/dL (8.5-10.1); CARBON DIOXIDE 21.1 mmol/L (21.0-32.0); CREATININE - SERUM 1.9 mg/dL (0.6-1.3); POTASSIUM - SERUM 4.1 mmol/L (3.5-5.1)
[2018-05-16 08:14] VITALS: BP 130/69
[2018-05-16 13:45] VITALS: BP 147/63
[2018-05-16 16:26] VITALS: BP 135/62
[2018-05-16 22:29] VITALS: BP 139/66
[2018-05-17] VITALS: BP 139/69
[2018-05-17 05:43] LABS: BASOPHILS 0.5 % (0-2); EOSINOPHILS 5.1 % (0-7); HEMOGLOBIN 8.3 g/dL (12-16); IMMATURE GRANULOCYTES 0.5 % (0-5); LYMPHOCYTES 21.8 % (15-50); MCH 29.1 pg (26.0-34.0); MCHC 30.7 g/dL (31.0-37.0); MCV 94.7 fL (80.0-100.0); MEAN PLATELET VOLUME 9.6 fL (7.4-10.4); MONOCYTES 11.6 % (2-11); NEUTROPHILS 60.5 % (40-80); PLATELET COUNT 196 10x3/uL (130-400); RBC 2.85 10x6/uL (4.00-5.40); RDW 14.4 % (11.5-14.5); WBC 5.5 10x3/uL (4.8-10.8)
[2018-05-17 05:50] VITALS: BP 143/63
[2018-05-17 06:02] LABS: ANION GAP 10.1 mmol/L (8-16); CALCIUM 9.3 mg/dL (8.5-10.1); CARBON DIOXIDE 23.4 mmol/L (21.0-32.0); CREATININE - SERUM 1.9 mg/dL (0.6-1.3); POTASSIUM - SERUM 3.5 mmol/L (3.5-5.1)
[2018-05-17 08:14] VITALS: BP 130/65
[2018-05-17 16:13] VITALS: BP 154/72
[2018-05-17 16:19] VITALS: BP 137/69
[2018-05-17 20:00] VITALS: BP 144/49
[2018-05-18] VITALS: BP 125/681
[2018-05-18 04:00] VITALS: BP 145/73
[2018-05-18 06:05] LABS: BASOPHILS 0.4 % (0-2); EOSINOPHILS 5.2 % (0-7); HEMATOCRIT 27.4 % (36.0-48.0); HEMOGLOBIN 8.4 g/dL (12-16); IMMATURE GRANULOCYTES 0.7 % (0-5); LYMPHOCYTES 22.3 % (15-50); MCH 29.1 pg (26.0-34.0); MCHC 30.7 g/dL (31.0-37.0); MCV 94.8 fL (80.0-100.0); MEAN PLATELET VOLUME 9.5 fL (7.4-10.4); MONOCYTES 9.1 % (2-11); NEUTROPHILS 62.3 % (40-80); PLATELET COUNT 194 10x3/uL (130-400); RBC 2.89 10x6/uL (4.00-5.40); RDW 14.4 % (11.5-14.5); WBC 5.4 10x3/uL (4.8-10.8)
[2018-05-18 06:36] LABS: ANION GAP 11.7 mmol/L (8-16); CALCIUM 9.3 mg/dL (8.5-10.1); CARBON DIOXIDE 22.8 mmol/L (21.0-32.0); CREATININE - SERUM 1.8 mg/dL (0.6-1.3); POTASSIUM - SERUM 3.5 mmol/L (3.5-5.1)
[2018-05-18 07:44] VITALS: BP 120/68
[2018-05-18 10:40] VITALS: BP 122/79
[2018-05-18 16:07] VITALS: BP 133/72
== END 2018-05-18 18:43 | DRG 699 ==
LOC: D.ER 14:59 → D.EDHOLD 18:44 → D.M2 18:44
PROVIDERS: Emergency Medicine; Family Medicine; Internal Medicine Nephrology; Student in an Organized Health Care Education/Training Program
DX: T83.511A Infection and inflammatory reaction due to indwelling urethral catheter, initial encounter (principal); N18.4 Chronic kidney disease, stage 4 (severe); Z68.43 Body mass index [BMI] 50.0-59.9, adult; Y84.8 Other medical procedures as the cause of abnormal reaction of the patient, or of later complication, without mention of misadventure at the time of the procedure; N39.0 Urinary tract infection, site not specified; I12.9 Hypertensive chronic kidney disease with stage 1 through stage 4 chronic kidney disease, or unspecified chronic kidney disease; G62.9 Polyneuropathy, unspecified; D63.1 Anemia in chronic kidney disease; F32.9 Major depressive disorder, single episode, unspecified; F41.9 Anxiety disorder, unspecified; K21.9 Gastro-esophageal reflux disease without esophagitis; I25.10 Atherosclerotic heart disease of native coronary artery without angina pectoris; Z95.5 Presence of coronary angioplasty implant and graft; N31.2 Flaccid neuropathic bladder, not elsewhere classified; E11.22 Type 2 diabetes mellitus with diabetic chronic kidney disease; E11.42 Type 2 diabetes mellitus with diabetic polyneuropathy; D64.9 Anemia, unspecified; E66.01 Morbid (severe) obesity due to excess calories

== ENCOUNTER → 2018-07-20 17:01 | Outpatient (CLI) | payer MEDICARE ==
[2018-05-13 19:15] VITALS: BMI 53.8
[~2018-07-20 17:01] MED LIST changes: +CELEXA20 MG PO; +LYRICA150 MG PO; +NORCO 10-325 TA1 TAB PO
[2018-07-20 17:44] LABS: ANION GAP 8.4 mmol/L (8-16); CARBON DIOXIDE 27.8 mmol/L (21.0-32.0); CREATININE - SERUM 2.4 mg/dL (0.6-1.3); POTASSIUM - SERUM 4.2 mmol/L (3.5-5.1)
== END | disposition home or self-care (01) ==
LOC: D.LABREF 17:01
PROVIDERS: Family Medicine
DX: N28.9 Disorder of kidney and ureter, unspecified (principal); I25.10 Atherosclerotic heart disease of native coronary artery without angina pectoris

== ENCOUNTER 2018-08-13 11:21 | Inpatient (IN) | payer MEDICARE ==
[2018-08-13] VITALS (7 sets, daily range): BP systolic 102–168; BP diastolic 47–86
[~2018-08-13] VITALS: Ht 160 cm; Wt 147.9 kg
--- NOTE | ~2018-08-13 | OP ---
PATIENT NAME: JAMIE BELL MEDICAL RECORD: [id number] :46 LOCATION:D.M2 D.0 ADMISSION DATE:08/13/18 SURGEON: CORRINA VASQUEZ MD DATE OF OPERATION: 08/17/2018 SURGEON: Corrina Vasquez MD ANESTHESIA: TIVA by Omkar Darby CRNA. DIAGNOSES: Retained ureteral stents, infected foreign bodies, recurrent urinary tract infections with vancomycin-resistant Enterococcus and Anna. PROCEDURES: Cystoscopy and bilateral ureteral stent removal. FINDINGS: Bilateral retained ureteral stents. SPECIMENS: Bilateral ureteral stents. ESTIMATED BLOOD LOSS: None. CLINICAL HISTORY: This is a 67-year-old female who has chronic renal failure and chronic bilateral hydroureteronephrosis. Back in December of this year, I saw her in consultation. As an experiment we placed bilateral ureteral stents to see if with resolution of the hydronephrosis would improve her renal function. They did not. In the meantime, she got lost to follow up and she presents to the hospital with recurrent urinary tract infections. Her urine culture is growing VRE as well as Anna and Enterococcus faecalis with non-VRE. She is currently on meropenem IV antibiotics. Because the stents are not functioning to improve her renal performance, they are foreign bodies, which are now contaminated with bacteria and will be the source of ongoing infections these stents need to be removed. Because she was already getting antibiotics on the floor, we did not give her any further antibiotics in the OR. Due to the brevity of the procedure, she was given TIVA only. DESCRIPTION OF PROCEDURE: The patient was given IV sedation. She was placed in dorsal lithotomy position and prepped and draped. A 21-Syriac cystoscope was used with a flexible grasper. The left stent was seen and removed entirely. The right stent was then seen and removed entirely. At the end of the procedure, a 16-Syriac Bartlett catheter was reinserted into the bladder. She has chronic urinary retention. Prior to prepping her, we had removed her Bartlett catheter. TRANSINT:[id number] Voice Confirmation ID: [id number] DOCUMENT ID: [id number] CORRINA VASQUEZ MD at 1116 CC: [id number] DICTATION DATE: 08/17/181848 MANAGER MANAGED BACKUP SERVICES: 08/17/181954 [facility] IN [place] [address] [place] [address]
--- NOTE | ~2018-08-13 | HP ---
PATIENT: JAMIE BLACK MEDICAL RECORD: [id number] ACCOUNT: [id number] LOCATION:[address] : [birth year] ADMISSION DATE: 08/13/18 PCP: PASTORA SHORT DO HISTORY AND PHYSICAL EXAMINATION HISTORY OF PRESENT ILLNESS: Ms. Black is a 67-year-old white female who comes in today with mental status changes. She has a history of chronic pyelonephritis and recurrent UTIs. She was recently hospitalized for similar type problems. She was recently hospitalized at [facility] also. She has chronic renal insufficiency, chronic anemia and multiple medical problems. She is obese. She has had a history of CVA in the past. She recently went on hospice. She is being admitted at this time for IV fluids. We will culture her urine and get her back on some antibiotics. PAST MEDICAL HISTORY: Significant again for previous CVA, hypertension, coronary artery disease with stents, COPD/asthma, seizure disorder, prediabetes, renal failure, chronic anxiety, depression, chronic back pain, hyperlipidemia, gout. PAST SURGICAL HISTORY: Previous surgeries include a gallbladder, appendectomy, hysterectomy, hiatal hernia, cardiac stent placement, carpal tunnel, ganglion cyst. ALLERGIES: CLONIDINE AND PENICILLIN. MEDICATIONS: Home medications include Aggrenox 1 p.o. b.i.d., trazodone 50 mg at bedtime, Lyrica 150 mg daily, citalopram 20 mg a day, Trileptal 300 mg b.i.d., Demadex 20 mg daily, Zemplar 2 mcg daily, allopurinol 300 mg a day, propranolol 10 mg a day and [place] 10 t.i.d. p.r.n. pain. FAMILY HISTORY: Significant for diabetes, hypertension and cardiovascular disease. SOCIAL HISTORY: The patient is currently living with her son. She does not smoke and drink. She recently went to hospice. REVIEW OF SYSTEMS: She states she feels foggy headed today, started about 3:00 this morning. Unaware of any fever. She is complaining of chronic back pain, which is not new. She has no chest pain. She has a chronic Bartlett catheter that is managed through home health. PHYSICAL EXAMINATION: GENERAL: She is alert at this time. She does seem a little off her normal baseline. HEENT: Sclerae nonicteric. Mucous membranes are a little dry. NECK: Soft and supple. HEART: Regular. LUNGS: Clear. ABDOMEN: Soft. IMPRESSION: 1. Mental status change. 2. Urinary tract infection. 3. History of cerebrovascular accident. 4. Chronic pyelonephritis. HISTORY AND PHYSICAL [id number] JAMIE BLACK 5. Chronic Bartlett catheter. 6. Hypertension. 7. Prediabetes. 8. Seizure disorder. 9. Morbid obesity. 10. Hyperlipidemia. 11. Coronary artery disease. PLAN: Admit, IV fluids, IV antibiotics until we get back on cultures. We will follow clinically how she responds. TRANSINT:[id number] Voice Confirmation ID: [id number] DOCUMENT ID: [id number] PASTORA SHORT DO at 0959 CC: [id number] DICTATION DATE: 08/13/181925 DIRECTOR DATA MANAGEMENT: 08/13/182058 ADM IN [facility] [address] [place] [address]
[~2018-08-13 11:21] MED LIST changes: -NORCO 10-325 TA1 TAB PO
[2018-08-13] MEDS ORDERED: DEMADEX20 MG PO (11:30)
[2018-08-13] MEDS ORDERED: TRILEPTAL300 MG PO (11:31)
[2018-08-13] MEDS ORDERED: NORCO 10-325 TA1 TAB PO (11:32)
[2018-08-13 13:11] LABS: BASOPHILS 0.8 % (0-2); EOSINOPHILS 3.1 % (0-7); HEMATOCRIT 29.1 % (36.0-48.0); IMMATURE GRANULOCYTES 0.3 % (0-5); LYMPHOCYTES 22.6 % (15-50); MCHC 30.9 g/dL (31.0-37.0); MCV 90.4 fL (80.0-100.0); MEAN PLATELET VOLUME 10.9 fL (7.4-10.4); NEUTROPHILS 64.2 % (40-80); RBC 3.22 10x6/uL (4.00-5.40); RDW 15.3 % (11.5-14.5); WBC 7.2 10x3/uL (4.8-10.8)
[2018-08-13 13:12] LABS: PLATELET COUNT 258 10x3/uL (130-400)
[2018-08-13 13:18] LABS: INR 1.03 (0.85-1.17); PROTIME 13.1 SECONDS (11.6-15.0)
[2018-08-13 13:26] LABS: ALBUMIN 2.7 g/dL (3.4-5.0); ALKALINE PHOSPHATASE 126 U/L (46-116); ALT (SGPT) 20 U/L (10-68); CALC OSMOLALITY 271 mosm/kg (275-300); CARBON DIOXIDE 26.5 mmol/L (21.0-32.0); CHLORIDE - SERUM 98 mmol/L (98-107); CREATININE - SERUM 2.9 mg/dL (0.6-1.3); GLUCOSE 95 mg/dL (74-106); POTASSIUM - SERUM 4.8 mmol/L (3.5-5.1); SODIUM 131 mmol/L (136-145); UREA NITROGEN 39 mg/dL (7-18); eGFR NON AFRICAN AMERICAN 17 mL/min (90-120)
[2018-08-13 13:38] LABS: APPEARANCE CLEAR (CLEAR); CKMB 0.4 U/L (0.0-3.6); COLOR YELLOW (YELLOW); CREATINE KINASE 31 UL (21-215); MAGNESIUM - SERUM 1.8 mg/dL (1.8-2.4); SPECIFIC GRAVITY 1.005 (1.005-1.020); TROPONIN-I < 0.017 ng/mL (0.000-0.060)
[2018-08-13 13:39] LABS: BILIRUBIN NEGATIVE (NEGATIVE); GLUCOSE NEGATIVE (NEGATIVE); KETONE NEGATIVE (NEGATIVE); NITRITE NEGATIVE (NEGATIVE); PROTEIN 2+ mg/dL (NEGATIVE); UROBILINOGEN NORMAL (NORMAL)
[2018-08-13 13:40] LABS: BACTERIA MODERATE /hpf (NONE SEEN); EPITHELIAL CELLS 0-5 /hpf (0-5); MUCUS <1+ /lpf (NONE SEEN); RED CELLS - URINE 0-5 /hpf (0-5)
[2018-08-13 13:41] LABS: AMORPHOUS SEDIMENT >1+ /lpf (NONE SEEN)
[2018-08-14] VITALS (7 sets, daily range): BP systolic 100–145; BP diastolic 41–53; BMI 57.8
[2018-08-14 05:24] LABS: BASOPHILS 0.8 % (0-2); EOSINOPHILS 4.1 % (0-7); HEMATOCRIT 27.1 % (36.0-48.0); HEMOGLOBIN 8.3 g/dL (12-16); IMMATURE GRANULOCYTES 0.3 % (0-5); LYMPHOCYTES 28.7 % (15-50); MCH 27.9 pg (26.0-34.0); MCHC 30.6 g/dL (31.0-37.0); MCV 90.9 fL (80.0-100.0); MEAN PLATELET VOLUME 10.9 fL (7.4-10.4); MONOCYTES 14.4 % (2-11); NEUTROPHILS 51.7 % (40-80); PLATELET COUNT 286 10x3/uL (130-400); RBC 2.98 10x6/uL (4.00-5.40); RDW 15.7 % (11.5-14.5); WBC 6.5 10x3/uL (4.8-10.8)
[2018-08-14 05:25] LABS: ANION GAP 11.5 mmol/L (8-16); CALCIUM 10.4 mg/dL (8.5-10.1); CARBON DIOXIDE 25.9 mmol/L (21.0-32.0); CREATININE - SERUM 3.2 mg/dL (0.6-1.3); POTASSIUM - SERUM 4.4 mmol/L (3.5-5.1)
[2018-08-15 00:20] VITALS: BP 103/48
[2018-08-15 05:44] VITALS: BP 110/57
[2018-08-15 05:57] LABS: BASOPHILS 0.9 % (0-2); EOSINOPHILS 4.8 % (0-7); HEMATOCRIT 29.5 % (36.0-48.0); HEMOGLOBIN 8.9 g/dL (12-16); IMMATURE GRANULOCYTES 0.3 % (0-5); LYMPHOCYTES 25.4 % (15-50); MCH 28.2 pg (26.0-34.0); MCHC 30.2 g/dL (31.0-37.0); MEAN PLATELET VOLUME 11.1 fL (7.4-10.4); MONOCYTES 14.4 % (2-11); NEUTROPHILS 54.2 % (40-80); PLATELET COUNT 285 10x3/uL (130-400); RBC 3.16 10x6/uL (4.00-5.40); RDW 15.8 % (11.5-14.5); WBC 6.5 10x3/uL (4.8-10.8)
[2018-08-15 06:06] LABS: MCV 93.4 fL (80.0-100.0)
[2018-08-15 06:15] LABS: ALBUMIN 2.3 g/dL (3.4-5.0); BILIRUBIN - TOTAL 0.16 mg/dL (0.2-1.3); CALCIUM 10.1 mg/dL (8.5-10.1); CREATININE - SERUM 3.3 mg/dL (0.6-1.3); MAGNESIUM - SERUM 1.8 mg/dL (1.8-2.4); POTASSIUM - SERUM 4.5 mmol/L (3.5-5.1); PROTEIN - SERUM 6.9 g/dL (6.4-8.2)
[2018-08-15 06:34] LABS: ANION GAP 15.1 mmol/L (8-16); CARBON DIOXIDE 23.4 mmol/L (21.0-32.0)
[2018-08-15 13:33] VITALS: BP 90/44
[2018-08-15 16:28] VITALS: BP 104/42
[2018-08-15 21:17] VITALS: BP 103/46
[2018-08-16 01:32] VITALS: BP 97/42
[2018-08-16 05:52] VITALS: BP 103/54
[2018-08-16 05:54] LABS: BASOPHILS 0.9 % (0-2); EOSINOPHILS 7.1 % (0-7); HEMATOCRIT 26.8 % (36.0-48.0); IMMATURE GRANULOCYTES 0.2 % (0-5); LYMPHOCYTES 26.6 % (15-50); MCH 27.9 pg (26.0-34.0); MCHC 29.9 g/dL (31.0-37.0); MCV 93.4 fL (80.0-100.0); MEAN PLATELET VOLUME 10.6 fL (7.4-10.4); MONOCYTES 12.6 % (2-11); NEUTROPHILS 52.6 % (40-80); PLATELET COUNT 269 10x3/uL (130-400); RBC 2.87 10x6/uL (4.00-5.40)
[2018-08-16 05:58] LABS: WBC 4.7 10x3/uL (4.8-10.8)
[2018-08-16 06:28] LABS: ALBUMIN 2.1 g/dL (3.4-5.0); ANION GAP 14.8 mmol/L (8-16); BILIRUBIN - TOTAL 0.15 mg/dL (0.2-1.3); CALCIUM 9.4 mg/dL (8.5-10.1); CARBON DIOXIDE 22.6 mmol/L (21.0-32.0); CREATININE - SERUM 3.2 mg/dL (0.6-1.3); MAGNESIUM - SERUM 1.6 mg/dL (1.8-2.4); POTASSIUM - SERUM 4.4 mmol/L (3.5-5.1); PROTEIN - SERUM 6.5 g/dL (6.4-8.2)
[2018-08-16 08:38] VITALS: BP 120/62
[2018-08-16 11:48] VITALS: BP 106/52
[2018-08-16 15:56] VITALS: BP 101/51
[2018-08-16 21:53] VITALS: BP 127/68
[2018-08-17 05:30] LABS: BASOPHILS 0.7 % (0-2); EOSINOPHILS 8.2 % (0-7); HEMATOCRIT 25.9 % (36.0-48.0); HEMOGLOBIN 7.7 g/dL (12-16); IMMATURE GRANULOCYTES 0.2 % (0-5); LYMPHOCYTES 25.8 % (15-50); MCH 27.9 pg (26.0-34.0); MCHC 29.7 g/dL (31.0-37.0); MCV 93.8 fL (80.0-100.0); MEAN PLATELET VOLUME 10.8 fL (7.4-10.4); MONOCYTES 14.3 % (2-11); NEUTROPHILS 50.8 % (40-80); PLATELET COUNT 253 10x3/uL (130-400); RBC 2.76 10x6/uL (4.00-5.40); RDW 16.2 % (11.5-14.5); WBC 4.5 10x3/uL (4.8-10.8)
[2018-08-17 06:54] LABS: ALBUMIN 2.1 g/dL (3.4-5.0); CALCIUM 9.3 mg/dL (8.5-10.1); CARBON DIOXIDE 19.5 mmol/L (21.0-32.0); CREATININE - SERUM 3.2 mg/dL (0.6-1.3); MAGNESIUM - SERUM 1.7 mg/dL (1.8-2.4); PROTEIN - SERUM 6.4 g/dL (6.4-8.2)
[2018-08-17 06:55] LABS: ANION GAP 16.6 mmol/L (8-16); BILIRUBIN - TOTAL 0.08 mg/dL (0.2-1.3); POTASSIUM - SERUM 5.1 mmol/L (3.5-5.1)
[2018-08-17 06:56] VITALS: BP 118/50
[2018-08-17 09:03] VITALS: BP 138/61
[2018-08-17 10:06] VITALS: Ht 160 cm; Wt 147.9 kg
[2018-08-17 11:13] VITALS: BP 144/58
[2018-08-17 16:12] VITALS: BP 156/62
[2018-08-17 22:48] VITALS: BP 141/66
[2018-08-18 01:33] VITALS: BP 121/69
[2018-08-18 05:45] LABS: BASOPHILS 0.8 % (0-2); EOSINOPHILS 8.4 % (0-7); HEMATOCRIT 25.7 % (36.0-48.0); HEMOGLOBIN 7.7 g/dL (12-16); IMMATURE GRANULOCYTES 0.3 % (0-5); LYMPHOCYTES 29.7 % (15-50); MCH 27.6 pg (26.0-34.0); MCV 92.1 fL (80.0-100.0); MEAN PLATELET VOLUME 10.6 fL (7.4-10.4); MONOCYTES 15.1 % (2-11); NEUTROPHILS 45.7 % (40-80); PLATELET COUNT 222 10x3/uL (130-400); RBC 2.79 10x6/uL (4.00-5.40); RDW 16.1 % (11.5-14.5); WBC 3.6 10x3/uL (4.8-10.8)
[2018-08-18 05:53] LABS: ALBUMIN 2.1 g/dL (3.4-5.0); ANION GAP 13.8 mmol/L (8-16); BILIRUBIN - TOTAL 0.19 mg/dL (0.2-1.3); CALCIUM 9.3 mg/dL (8.5-10.1); CREATININE - SERUM 2.7 mg/dL (0.6-1.3); MAGNESIUM - SERUM 1.9 mg/dL (1.8-2.4); POTASSIUM - SERUM 4.8 mmol/L (3.5-5.1)
[2018-08-18 07:09] VITALS: BP 130/78
[2018-08-18 09:00] VITALS: BP 153/76
[2018-08-18 12:12] VITALS: BP 168/41
[2018-08-18 16:37] VITALS: BP 178/64
[2018-08-18 21:18] VITALS: BP 188/70
[2018-08-19] VITALS: BP 156/72
[2018-08-19 04:00] VITALS: BP 130/83
[2018-08-19 05:44] LABS: ALBUMIN 2.4 g/dL (3.4-5.0); ANION GAP 16.4 mmol/L (8-16); BILIRUBIN - TOTAL 0.26 mg/dL (0.2-1.3); CALCIUM 9.7 mg/dL (8.5-10.1); CARBON DIOXIDE 19.2 mmol/L (21.0-32.0); CREATININE - SERUM 2.5 mg/dL (0.6-1.3); MAGNESIUM - SERUM 1.9 mg/dL (1.8-2.4); POTASSIUM - SERUM 4.6 mmol/L (3.5-5.1); PROTEIN - SERUM 6.6 g/dL (6.4-8.2)
[2018-08-19 06:17] LABS: BASOPHILS 0.5 % (0-2); EOSINOPHILS 6.5 % (0-7); HEMATOCRIT 28.5 % (36.0-48.0); HEMOGLOBIN 8.6 g/dL (12-16); IMMATURE GRANULOCYTES 0.2 % (0-5); LYMPHOCYTES 21.6 % (15-50); MCH 27.8 pg (26.0-34.0); MCHC 30.2 g/dL (31.0-37.0); MCV 92.2 fL (80.0-100.0); MONOCYTES 14.7 % (2-11); NEUTROPHILS 56.5 % (40-80); PLATELET COUNT 219 10x3/uL (130-400); RBC 3.09 10x6/uL (4.00-5.40); RDW 15.9 % (11.5-14.5)
[2018-08-19 06:25] LABS: WBC 5.5 10x3/uL (4.8-10.8)
[2018-08-19 08:36] VITALS: BP 155/77
[2018-08-19 11:41] VITALS: BP 141/70
[2018-08-19 15:48] VITALS: BP 163/83
[2018-08-19 20:00] VITALS: BP 133/70
[2018-08-20 04:00] VITALS: BP 158/70
[2018-08-20 08:04] VITALS: BP 156/84
[2018-08-20 08:19] LABS: HEPATITIS C ANTIBODY 0.2 (0.0-0.9)
[2018-08-20 10:58] VITALS: BP 159/66
[2018-08-20] MEDS ORDERED: LINEZOLID600 MG PO (12:11)
[2018-08-20] MEDS ORDERED: DIFLUCAN200 MG PO (12:18)
[2018-08-21 04:14] LABS: HEPATITIS BE ANTIGEN Negative (Negative)
[2018-08-24 14:24] LABS: HEPATITIS BE ANTIBODY Negative (Negative)
== END 2018-08-20 17:08 | disposition home health service (06) | DRG 698 ==
LOC: D.ER 11:21 → D.M2 15:40
PROVIDERS: Family Medicine; Internal Medicine Nephrology; Urology
PROC: 0TP98DZ Removal of Intraluminal Device from Ureter, Via Natural or Artificial Opening Endoscopic (ICD-10-PCS; principal; 2018-08-17 12:00)
DX: T83.592A Infection and inflammatory reaction due to indwelling ureteral stent, initial encounter (principal); G93.41 Metabolic encephalopathy; N17.9 Acute kidney failure, unspecified; N39.0 Urinary tract infection, site not specified; N18.4 Chronic kidney disease, stage 4 (severe); N13.6 Pyonephrosis; Z68.43 Body mass index [BMI] 50.0-59.9, adult; Y83.8 Other surgical procedures as the cause of abnormal reaction of the patient, or of later complication, without mention of misadventure at the time of the procedure; G40.909 Epilepsy, unspecified, not intractable, without status epilepticus; I12.9 Hypertensive chronic kidney disease with stage 1 through stage 4 chronic kidney disease, or unspecified chronic kidney disease; I25.10 Atherosclerotic heart disease of native coronary artery without angina pectoris; F41.9 Anxiety disorder, unspecified; E78.5 Hyperlipidemia, unspecified; E66.01 Morbid (severe) obesity due to excess calories; Z86.73 Personal history of transient ischemic attack (TIA), and cerebral infarction without residual deficits; Z95.5 Presence of coronary angioplasty implant and graft

== ENCOUNTER 2018-08-31 16:10 | Inpatient (IN) | payer MEDICARE ==
[~2018-08-31] VITALS: Ht 160 cm; Wt 136.1 kg
--- NOTE | ~2018-08-31 | MORECARE ---
CASE MANAGEMENT DISCHARGE SUMMARY PATIENT: JAMIE BELL UNIT: [id number] ADM DATE: 08/31/18 AGE: 67 : 48 SEX: F ROOM/BED: D.2239 AUTHOR: WILFRID,DOC PHYSICIAN: REFERRING PHYSICIAN: NEELIMA JOSUE MD DATE OF SERVICE: 09/03/18 Discharge Plan Patient Name: JAMIE BELL Facility: [facility]:[place] : 1950 Planned Disposition: Home with Hospice Anticipated Discharge Date: Discharge Date: 09/02/2018 Expected LOS: 0 Initial Reviewer: [email or web address] Initial Review Date: 09/01/2018 Generated: 09/03/18 6:00 pm Comments DCP- Discharge Planning Updated by [email or web address]: Isabel Valdez on 09/02/18 2:[address] Attempted to call patient's daughter, Ivis, at [phone] and grand daughter, Bela at [phone] to inform them of Rocephin at [facility]. Neither one answered and they do not have a voice mailbox that has been set up yet. CM will continue to try and reach family. DCP- Discharge Planning Updated by [email or web address]: Isabel Courtney on 09/02/18 1:[address] Received orders for discharge. I spoke with her daughter, Ivis. She would like the patient to have Rocephin to go home on. States she can pick it up at the patient's pharmacy. I spoke with Roshan (Dr. Josue's DECORATOR MANNEQUIN) and she will check with Dr. Josue. I spoke with Faina at [facility] and informed her of discharge. She will be going home with [facility]. assisted living coordinator informed she will need ambulance for transfer home. CM will continue to follow and assist with discharge planning/needs. DCP- Discharge Planning Updated by [email or web address]: Isabel Valdez on 09/01/18 1:[address] Patient Name: JAMIE BELL Admission Status: ER Accout number: [id number] Admission Date: 08-31-2018 : 1950 Admission Diagnosis: Attending: NEELIMA JOSUE Current LOS: 1 Anticipated DC Date: Planned Disposition: Home with Hospice Primary Insurance: MEDICARE A & B Discharge Planning Comments: CM met with patient and her grand daughter, Bela, is in the room. Bela states she has [facility] at home and the DCP is to return home via ambulance with hospice. [facility] provides all DME needs. States patient's daughter (Ivis), grandson (Jonathan), and herself will take turns at the patient's house to continue 24 hour care. [facility] educational aide comes in every morning for bathing. CM will continue to follow and assist with discharge planning/needs. Youth Development Professional: Isabel Valdez DCPIA - Discharge Planning Initial Assessment Updated by [email or web address]: Isabel Valdez on 09/01/18 2:22 pm * Is the patient Alert and Oriented? No * How many steps to enter\exit or inside your home? 0/0 * PCP Dr. Valerio * Pharmacy [facility] * Preadmission Environment Home with Family * ADLs Total Dependent * Equipment Hospital Bed Other Oxygen * Other Equipment Hospice provides all medical equipment * List name and contact numbers for known caregivers / representatives who currently or will assist patient after discharge: Bela - grand daughter - [phone] Ivis - daughter - [phone] * Verbal permission to speak to the caregivers and representatives has been obtained from the patient. Yes * Community resources currently utilized [facility] * Please name any agencies selected above. [facility] * Additional services required to return to the preadmission environment? No * Can the patient safely return to the preadmission environment? Yes * Has this patient been hospitalized within the prior 30 days at any hospital? Yes Last DP export: 09/02/18 2:26 Patient Name: JAMIE BELL Page [id number] at 1701 All edits/amendments must be made on the electronic document DICTATION DATE: 09/03/181699 MANAGEMENT INTERNSHIP: SUSY 09/03/181699 RPT#: [id number] DC DATE:09/02/18 STATUS: DIS IN [place] [id number] [place] [address] END OF REPORT
[~2018-08-31 16:10] MED LIST changes: +DIFLUCAN200 MG PO; +LINEZOLID600 MG PO; +NORCO 10-325 TA1 TAB PO
[2018-08-31] MEDS ORDERED: DESERYL50 M2 PO (16:19)
[2018-08-31] MEDS ORDERED: NYSTATIN OINTME15 GM (16:19)
[2018-08-31] MEDS ORDERED: OXYBUTYNIN CHLOR5 MG PO (16:19)
[2018-08-31] MEDS ORDERED: GAVILAX510 GM PO (16:19)
[2018-08-31 17:28] VITALS: BP 159/81
[2018-08-31 17:32] LABS: UDS - AMPHET NEGATIVE QUAL (NEGATIVE); UDS - BARB NEGATIVE QUAL (NEGATIVE); UDS - BENZO NEGATIVE QUAL (NEGATIVE); UDS - COCAINE NEGATIVE QUAL (NEGATIVE); UDS - OPIATE NEGATIVE QUAL (NEGATIVE); UDS - PCP NEGATIVE QUAL (NEGATIVE); UDS - THC NEGATIVE QUAL (NEGATIVE)
[2018-08-31 17:33] LABS: BASOPHILS 0.5 % (0-2); EOSINOPHILS 5.8 % (0-7); HEMATOCRIT 29.8 % (36.0-48.0); HEMOGLOBIN 9.3 g/dL (12-16); IMMATURE GRANULOCYTES 0.3 % (0-5); LYMPHOCYTES 24.2 % (15-50); MCH 27.8 pg (26.0-34.0); MCHC 31.2 g/dL (31.0-37.0); MCV 89.2 fL (80.0-100.0); MONOCYTES 6.4 % (2-11); NEUTROPHILS 62.8 % (40-80); RBC 3.34 10x6/uL (4.00-5.40); WBC 6.4 10x3/uL (4.8-10.8)
[2018-08-31 17:37] LABS: APPEARANCE CLOUDY (CLEAR); BACTERIA FEW /hpf (NONE SEEN); BILIRUBIN NEGATIVE (NEGATIVE); COLOR YELLOW (YELLOW); EPITHELIAL CELLS NSEEN /hpf (0-5); GLUCOSE NEGATIVE (NEGATIVE); KETONE NEGATIVE (NEGATIVE); NITRITE NEGATIVE (NEGATIVE); PROTEIN 3+ mg/dL (NEGATIVE); RED CELLS - URINE 0-5 /hpf (0-5); SPECIFIC GRAVITY 1.015 (1.005-1.020); UROBILINOGEN NORMAL (NORMAL); WHITE CELLS - URINE >50 /hpf (0-5)
[2018-08-31 17:40] LABS: PLATELET COUNT 102 10x3/uL (130-400)
[2018-08-31 18:15] LABS: ALBUMIN 2.6 g/dL (3.4-5.0); ANION GAP 17.1 mmol/L (8-16); BILIRUBIN - TOTAL 0.22 mg/dL (0.2-1.3); CALCIUM 10.5 mg/dL (8.5-10.1); CARBON DIOXIDE 24.1 mmol/L (21.0-32.0); CREATININE - SERUM 3.5 mg/dL (0.6-1.3); POTASSIUM - SERUM 4.2 mmol/L (3.5-5.1)
[2018-08-31 18:21] VITALS: BP 154/65
[2018-08-31 19:49] VITALS: BP 153/68
[2018-09-01 01:30] VITALS: BP 169/86; BMI 53.2
[2018-09-01 05:58] LABS: BASOPHILS 0.5 % (0-2); EOSINOPHILS 5.5 % (0-7); HEMATOCRIT 30.3 % (36.0-48.0); HEMOGLOBIN 9.2 g/dL (12-16); IMMATURE GRANULOCYTES 0.3 % (0-5); LYMPHOCYTES 25.2 % (15-50); MCH 27.8 pg (26.0-34.0); MCHC 30.4 g/dL (31.0-37.0); MEAN PLATELET VOLUME 10.8 fL (7.4-10.4); MONOCYTES 8.3 % (2-11); NEUTROPHILS 60.2 % (40-80); RBC 3.31 10x6/uL (4.00-5.40)
[2018-09-01 06:18] LABS: ALBUMIN 2.6 g/dL (3.4-5.0); ANION GAP 12.2 mmol/L (8-16); BILIRUBIN - TOTAL 0.25 mg/dL (0.2-1.3); CALCIUM 10.4 mg/dL (8.5-10.1); CARBON DIOXIDE 28.8 mmol/L (21.0-32.0); CREATININE - SERUM 3.6 mg/dL (0.6-1.3)
[2018-09-01 06:25] LABS: MCV 91.5 fL (80.0-100.0); PLATELET COUNT 208 10x3/uL (130-400)
[2018-09-01 06:26] VITALS: BP 163/85
[2018-09-01 09:19] VITALS: BP 165/89
[2018-09-01 11:36] VITALS: BP 127/88
[2018-09-01 14:13] VITALS: Ht 160 cm; Wt 136.1 kg
[2018-09-01 15:30] VITALS: BP 154/80
[2018-09-01 20:00] VITALS: BP 115/75
[2018-09-02 05:28] VITALS: BP 149/90
[2018-09-02 06:00] LABS: BASOPHILS 0.3 % (0-2); EOSINOPHILS 4.3 % (0-7); HEMATOCRIT 28.1 % (36.0-48.0); HEMOGLOBIN 8.5 g/dL (12-16); LYMPHOCYTES 14.8 % (15-50); MCH 27.9 pg (26.0-34.0); MCHC 30.2 g/dL (31.0-37.0); MCV 92.1 fL (80.0-100.0); MEAN PLATELET VOLUME 10.9 fL (7.4-10.4); MONOCYTES 7.9 % (2-11); NEUTROPHILS 72.7 % (40-80); PLATELET COUNT 186 10x3/uL (130-400); RBC 3.05 10x6/uL (4.00-5.40); RDW 16.1 % (11.5-14.5)
[2018-09-02 06:16] LABS: ANION GAP 14.2 mmol/L (8-16); CARBON DIOXIDE 26.7 mmol/L (21.0-32.0); CREATININE - SERUM 3.3 mg/dL (0.6-1.3); POTASSIUM - SERUM 3.9 mmol/L (3.5-5.1)
[2018-09-02 06:19] LABS: WBC 7.6 10x3/uL (4.8-10.8)
[2018-09-02 10:20] VITALS: BP 108/63
[2018-09-02] MEDS ORDERED: ROCEPHIN 1 GM/D51 G1 IM (15:10)
[2018-09-02 15:20] VITALS: BP 143/78
== END 2018-09-02 17:18 | disposition home health service (06) | DRG 698 ==
LOC: D.ER 16:10 → D.MS 20:44
PROVIDERS: Emergency Medicine; Family Medicine; Internal Medicine Nephrology
DX: T83.511A Infection and inflammatory reaction due to indwelling urethral catheter, initial encounter (principal); G93.41 Metabolic encephalopathy; N17.9 Acute kidney failure, unspecified; I13.0 Hypertensive heart and chronic kidney disease with heart failure and stage 1 through stage 4 chronic kidney disease, or unspecified chronic kidney disease; Z68.43 Body mass index [BMI] 50.0-59.9, adult; Y84.6 Urinary catheterization as the cause of abnormal reaction of the patient, or of later complication, without mention of misadventure at the time of the procedure; N39.0 Urinary tract infection, site not specified; I50.9 Heart failure, unspecified; N18.9 Chronic kidney disease, unspecified; E78.5 Hyperlipidemia, unspecified; E66.01 Morbid (severe) obesity due to excess calories; D50.9 Iron deficiency anemia, unspecified; G40.909 Epilepsy, unspecified, not intractable, without status epilepticus; Z86.73 Personal history of transient ischemic attack (TIA), and cerebral infarction without residual deficits

== ENCOUNTER → 2019-06-06 08:12 | Outpatient (CLI) | payer MEDICARE ==
[2018-09-01 14:13] VITALS: BMI 53.1
[~2019-06-06 08:12] MED LIST changes: +DESERYL50 M2 PO; +GAVILAX510 GM PO; +NYSTATIN OINTME15 GM; +ROCEPHIN 1 GM/D51 G1 IM
== END | disposition home or self-care (01) ==
LOC: D.HCCARDIO 08:12
PROVIDERS: ATTEND Internal Medicine Cardiovascular Disease
DX: I25.10 Atherosclerotic heart disease of native coronary artery without angina pectoris (principal)

== ENCOUNTER → 2019-06-08 12:53 | Outpatient (CLI) | payer MEDICARE ==
[2018-09-01 14:13] VITALS: BMI 53.1
== END | disposition home or self-care (01) ==
LOC: D.HCCARDIO 06-03 14:30
PROVIDERS: ATTEND Internal Medicine Cardiovascular Disease
DX: I25.10 Atherosclerotic heart disease of native coronary artery without angina pectoris (principal)

== ENCOUNTER 2019-06-23 18:30 | Inpatient (IN) | payer MEDICARE ==
[~2019-06-23] VITALS: Ht 160 cm; Wt 112.5 kg
--- NOTE | ~2019-06-23 | HEMODYNAMI ---
PATIENT:JAMIE BELL MEDICAL RECORD: [id number] : 46 LOCATION[facility] [id number] ADMISSION DATE: 06/24/19 Generatedon:06/28/201914:53 Patient name: JAMIE BELL Patient #: [id number] S SN: [id number] : 1950 Date of study: 06/28/2019 Page: Of Hemodynamic Procedure Report Patient Data Patient Demographics First Name: JAMIE Gender: Female Last Name: RAY : 1950 Patient #: [id number] Age: 68 year(s) Race: SSN: [id number] Additional ID: [id number] Contact details [address]: [address] [place] [address] State: [place] City: [place] Zip code: [address] Past Medical History Allergies Allergen Reaction Date Comments Reported Other allergy 06/27/2019 penicillin, clonadine Admission Admission Data Admission Date: 06/24/2019 Admission Time: 13:34 Arrival Date: 06/24/2019 Arrival Time: 13:34 Admit Source: Emergency Insurance Payor: Medicare, department Medicaid Room #: D.2115 Height (in.): 63 BSA: 2.12 (m2) Height (cm.): 160.02 BMI: 43.93 (kg/m2) Weight (lbs.): 248 Weight (kg.): 112.49 Lab Results Lab Result Date: 06/28/2019 Lab Result Time: 0:00 Biochemistry Name Units Result Min Max BUN mg/dl 36 --(----)-* 7 18 Creatinine mg/dl 3.9 --(----)-* 0.6 1.3 CBC Name Units Result Min Max Hemoglobin g/dl 9.9 *-(----)-- 13.5 17.5 Procedure Procedure Types Cath Procedure Diagnostic Procedure Sedation Charges Moderate Sedation up to 30 minutes PCI Procedure Coronary Stent Coronary Stent Initial Procedure Description Procedure Date Procedure Date: 06/28/2019 Procedure Start Time: 14:21 Procedure End Time: 14:45 Procedure Staff Name Function Leandro Santa MD Performing Physician Ni Guzman RT Monitor Wero Perez RT Scrub Sierra Koenig RT Scrub Michel Briscoe RN Nurse Procedure Data Cath Procedure Fluoroscopy Diagnostic fluoroscopy Total fluoroscopy Time: 7.9 time: 7.9 min min Diagnostic fluoroscopy Total fluoroscopy dose: dose: 1082 mGy 1082 mGy Contrast Material Contrast Material Type Amount (ml) Isovue 300 82 Entry Location Entry Primary Successful Side Size Upsize Upsize Entry Closure Succes sful Closure Location (Fr) 1 (Fr) 2 (Fr) Remarks Device Remarks Femoral Left 7 Fr Exoseal artery Short Estimated blood loss: 5 ml Procedure Complications No complications Procedure Medications Medication Administration Route Dosage Oxygen etCO2 Nasal cannula 2 l/min Heparin Flush Bag added to field 2 bags (1000units/500ml NS) 0.9% NaCl I.V. 100 ml/hr Lidocaine 2% added to field 20 Fentanyl I.V. 50 mcg Versed I.V. 1 mg Heparin Bolus I.V. 4000 units Fentanyl I.V. 50 mcg Versed I.V. 1 mg Fentanyl I.V. 50 mcg Lasix I.V. 40 mg Hemodynamics Rest BSA: 2.12 (m2) HGB: 9.9 (g/dl) O2 Consumption: Estimated: 179.53 (ml/min) O2 Con sumption indexed: Estimated:84.68 (ml/min/m) Heart Rate: 50 (bpm) Snapshots Pre Cath Intra NCS Post Cath Vital Signs Time Heart Resp SPO2 etCO2 NIBP (mmHg) Rhythm Pain Sedation Rate (ipm) (%) (mmHg) Status Level (bpm) 14:05:34 51 16 98 41.1 151/78(110) NSR 0 (11) 10(A) , No pain 14:10:33 49 16 98 41.1 Measuring NSR 0 (11) 10(A) , No pain 14:11:02 49 17 97 39.6 Time NSR 0 (11) 10(A) Exceeded , No pain 14:16:00 49 16 96 35.8 Measuring NSR 0 (11) 10(A) , No pain 14:17:24 49 17 96 38.8 Time NSR 0 (11) 10(A) Exceeded , No pain 14:22:23 50 13 96 0 Measuring NSR 0 (11) 10(A) , No pain 14:23:17 49 19 95 0 Time NSR 0 (11) 9(A) Exceeded , No pain 14:27:00 50 18 94 0 Time NSR 0 (11) 9(A) Exceeded , No pain 14:31:20 49 17 95 8.2 114/44(69) NSR 0 (11) 9(A) , No pain 14:35:32 48 16 96 20.9 129/44(81) NSR 0 (11) 9(A) , No pain 14:39:32 57 17 96 45.6 144/74(104) NSR 0 (11) 9(A) , No pain 14:44:31 51 5 97 44.1 145/76(109) NSR 0 (11) 9(A) , No pain Medications Time Medication Route Dose Verified Delivered Reason Notes Effectiveness by by 14:04:21 Oxygen etCO2 2 Leandro Michel Per physician Nasal l/min Kiet Briscoe RN cannula 14:04:30 Heparin Flush added 2 Leandro Michel used for Bag to bags Kiet Briscoe RN procedure (1000units/500ml field NS) 14:04:39 0.9% NaCl I.V. 100 Leandro Michel Per physician ml/hr Kiet Briscoe RN 14:04:50 Lidocaine 2% added 20ml Leandro Michel for local to vial Kiet Briscoe RN anesthetic field 14:18:39 Fentanyl I.V. 50 Leandro Michel for sedation mcg Kiet Briscoe RN 14:18:45 Versed I.V. 1 mg Leandro Michel for sedation Kiet Briscoe RN 14:21:11 Fentanyl I.V. 50 Leandro Michel for sedation mcg Kiet Briscoe RN 14:21:16 Versed I.V. 1 mg Leandro Mcihel for sedation Kiet Briscoe RN 14:23:39 Heparin Bolus I.V. 4000 Leandro Michel for units Kiet Briscoe RN anticoagulation 14:25:32 Fentanyl I.V. 50 Leandro Michel for sedation mcg Kiet Briscoe RN 14:37:56 Lasix I.V. 40 mg Leandro Mcdonaldy Per physician Kiet Briscoe RN Procedure Log Time Note 13:46:32 Diagnostic Cath Status : Elective 13:46:51 Patient Weight : 248 lbs 13:46:51 Patient Height : 63 inches 13:49:36 ACC Patient presents with Non-STEMI CCS Anginal Class 3--Marked limitation of physical activity, angina occurs with ordinary activity.. 13:51:16 Procedure Status Urgent Heart Cath (IP). 13:51:19 Sierra Koenig RT(R) sent for patient. Start room use. 13:51:20 Time tracking: Regular hours (M-F 7:00 - 5:00) 13:51:24 Plan of Care:Hemodynamics will remain stable., Cardiac rhythm will remain stable., Comfort level will be maintained., Respiratory function will remain adequate., Patient/ family verbilizes understanding of procedure., Procedure tolerated without complication., Recovers from procedure without complications.. 13:52:30 Lab Result : Hemoglobin 9.9 g/dl 13:52:30 Lab Result : Creatinine 3.9 mg/dl 13:52:30 Lab Result : BUN 36 mg/dl 13:56:09 Patient received from Med II to [facility] 2 Alert and oriented. Tansferred to table in Supine position. 13:56:10 Warm blankets applied, and tameka hugger turned on for patient comfort. 13:56:11 Correct patient and procedure confirmed by team. 13:56:11 ECG and BP/O2 sat monitors applied to patient. 14:04:03 Vital chart was started 14:04:21 Oxygen 2 l/min etCO2 Nasal cannula was administered by Michel Briscoe RN; Per physician; 14:04:30 Heparin Flush Bag (1000units/500ml NS) 2 bags added to field was administered by Michel Briscoe RN; used for procedure; 14:04:39 0.9% NaCl 100 ml/hr I.V. was administered by Michel Briscoe RN; Per physician; 14:04:50 Lidocaine 2% 20ml vial added to field was administered by Michel Briscoe RN; for local anesthetic; 14:06:19 Baseline sample Acquired. 14:06:23 Rhythm: sinus rhythm 14:06:25 Full Disclosure recording started 14:06:29 H&P Date Dictated: 06/28/2019 Within 30 days and on chart., H&P Addendum completed by physician on day of procedure. (MUST COMPLETE FOR ALL OUTPATIENTS). 14:06:53 Pre-procedure instructions explained to patient. 14:06:53 Pre-op teaching completed and patient verbalized understanding. 14:06:54 Family in waiting room. 14:06:56 Patient NPO since Midnight. 14:06:59 Is the patient allergic to Iodine/contrast media? No. 14:07:00 Was the patient premedicated? No 14:07:04 Is patient on blood thinner?Yes 14:07:06 ACC The patient was administered the following blood thiners within the last 24 hours: ACCPlavix 14:07:47 Previous problem with sedation/anesthesia? No ? 14:07:48 Snore? Yes 14:07:49 Sleep apnea? No 14:07:50 Deviated septum? No 14:07:51 Opens mouth fully? Yes 14:07:52 Sticks out tongue? Yes 14:07:54 Airway obstruction? No ? 14:08:28 Dentures? No ? 14:09:02 Pre procedure: right dorsailis pedis pulse 1+ Palpable, but thready & weak; easily obliterated 14:09:04 Pre procedure: left dorsailis pedis pulse 1+ Palpable, but thready & weak; easily obliterated 14:09:08 Patient pain scale 0/10 ?. 14:09:14 IV patent on arrival in left forearm with 0.9% NaCl at [facility]. 14:09:24 Lab results completed and on chart. 14:09:29 Left groin area was prepped with chlora-prep and draped in sterile fashion 14:09:30 Alarms reviewed by R. N. 14:09:30 Sharps counted by scrub and verified by R.N. 14:10:10 Physician paged 14:17:51 --------ALL STOP TIME OUT------ 14:17:51 Final Timeout: patient, procedure, and site verified with staff and physician. All members of the team are in agreement. 14:18:05 Left groin site verified by team. 14:18:10 Fire Safety Assessment: A--An alcohol-based skin anteseptic being used preoperatively., C--Open oxygen or nitrous oxide is being used., D--An ESU, laser, or fiber-optic light is being used. 14:18:12 Physical assessment completed. ASA score P 2 - A patient with mild systemic disease as per Leandro Santa MD. 14:18:18 5) <15 or on dialysis Very severe, or end stage kidney failure. 14:18:21 Maximum allowable contrast dose (3.7 X eGFR X 0.75)34 ml. 14:18:24 Sedation plan: IV Moderate Sedation Medication:Versed, Fentanyl 14:18:39 Fentanyl 50 mcg I.V. was administered by Michel Briscoe RN; for sedation; 14:18:45 Versed 1 mg I.V. was administered by Michel Briscoe RN; for sedation; 14:20:51 SHEATH 7FR [place] (LWX668) opened to sterile field. 14:20:51 GUIDE 7FR EBU 3.5 SH catheter ([id number]) opened to sterile field. 14:21:11 Fentanyl 50 mcg I.V. was administered by Michel Briscoe RN; for sedation; 14:21:16 Versed 1 mg I.V. was administered by Michel Briscoe RN; for sedation; 14:21:22 CHOICE PT Extra Support 182cm wire ([id number]) opened to sterile field. 14:21:41 INFLATOR Merit BasixCompak (QW0233) opened to sterile field. 14:21:46 Procedure started. 14:21:53 Local anesthetic to left femerol artery with Lidocaine 1% w/epi by Leandro Santa MD.INITIAL ACCESS ONLY 14:22:02 A 7 Fr Short sheath was inserted into the Left Femoral artery 14:22:28 7 Fr ebu 3.5 sh guide catheter was inserted over the wire 14:23:23 Use device set CATH PACK 14:23:25 ACIST Syringe (61710) opened to sterile field. 14:23:25 ACIST Hand Control (89604) opened to sterile field. 14:23:26 ACIST Manifold (75666) opened to sterile field. 14:23:26 Medline Cath Pack ([id number]) opened to sterile field. 14:23:27 Bag Decanter () opened to sterile field. 14:23:27 EMERALD Guide Wire (502-970) opened to sterile field. 14:23:39 Heparin Bolus 4000 units I.V. was administered by Michel Briscoe RN; for anticoagulation; 14:25:11 Guide catheter removed. 14:25:26 GUIDE 7FR EBU 4.0 SH catheter ([id number]) opened to sterile field. 14:25:32 Fentanyl 50 mcg I.V. was administered by Michel Briscoe RN; for sedation; 14:26:20 7 Fr ebu 4 sh guide catheter was inserted over the wire 14:27:13 FIELDER XT 190cm guidewire ([id number]) opened to sterile field. 14:27:22 fielder wire advanced. 14:32:08 Wire advanced across lesion. 14:33:45 Inflate balloon Inflation number: 1 A EUPHORA 1.5 x 15 Balloon ([id number]) was prepped and advanced across the 1st Diag 99, then inflated to 17 NOVA for 0:10 (min:sec) . 14:33:57 Balloon removed over the wire. 14:35:28 Inflate balloon Inflation number: 2 A EUPHORA 2.0 x 20 Balloon ([id number]) was prepped and advanced across the 1st Diag , then inflated to 15 NOVA for 0:10 (min:sec) . 14:36:25 Balloon removed over the wire. 14:37:56 Lasix 40 mg I.V. was administered by Michel Briscoe RN; Per physician; 14:39:37 ACT drawn and resulted at out of range seconds. (normal therapeutic range 180-240 seconds). 14:40:22 Place stent Inflation Number: 3 A CHARLEY RX 2.0 x 26 stent ([id number]) was prepped and advanced across the 1st Diag 99. The stent was deployed at 15 NOVA for 0:10 (min:sec) 0. 14:40:28 Stent catheter was removed intact over wire. 14:40:30 Wire removed. 14:40:30 Guide catheter removed. 14:40:53 Sheath removed intact; hemostasis achieved with Exoseal to the Left Femoral artery. 14:40:54 Procedure ended.(Physican Out) 14:42:24 Fluoroscopy time 07.90 minutes. 14:42:31 Fluoroscopy dose: 1082 mGy 14:42:31 Flurop Dose total: 1082 14:42:40 Dose Area Product 22219 mGy/cm. 14:42:45 Contrast amount:Isovue 300 82ml. 14:42:57 Sharps counted by scrub and verified by R.N. 14:42:59 Insertion/operative site no bleeding no hematoma. 14:43:04 Post-op/insertion site Left Femoral artery dressed using a 4 x 4 and Tegaderm. 14:43:12 EXOSEAL 7Fr (EX700) opened to sterile field. 14:43:19 Post Procedure Pulses reassessed and unchanged 14:43:22 Post procedure rhythm: unchanged. 14:43:36 Estimated blood loss: 5 ml 14:43:38 Post procedure instruction explained to patient.Patient verbalizes understanding. 14:43:39 Patient needs reinforcement of post procedure teaching. 14:44:07 Procedure type changed to Cath procedure, Diagnostic procedure, Sedation Charges, Moderate Sedation up to 30 minutes, PCI procedure, Coronary Stent, Coronary Stent Initial 14:44:41 Procedure and supply charges have been captured, reviewed, submitted and are correct. 14:44:46 Procedure Complication : No complications 14:44:49 Vital chart was stopped 14:44:50 See physician's report for complete and final results. 14:44:57 Report given to Med II. 14:45:01 Patient transfered to Med II with Stretcher. 14:45:04 Procedure ended. 14:45:04 Full Disclosure recording stopped 14:45:09 ACC-PCI Only Patient was given prescriptions, or instructed by Leandro Santa MD to start/continue the following medications upon discharge: Plavix 14:45:11 End room use (Document Last) 14:49:21 FEMSTOP Gold ([id number]) opened to sterile field. 14:53:17 Femstop placed over the left femerol artery at 100 mmHg. Hemostasis achieved. Intervention Summary Intervention Notes Time ActionType Lesion and Equipment Used Action# Pressure Duration Attributes 14:33:45 Inflate 1st Diag EUPHORA 1.5 x 1 17 00:10 balloon 15 Balloon ([id number]) 14:35:28 Inflate 1st Diag EUPHORA 2.0 x 2 15 00:10 balloon 20 Balloon ([id number]) 14:40:22 Place stent 1st Diag CHARLEY RX 2.0 x 3 15 00:10 26 stent ([id number]) Device Usage Item Name Manufacture Quantity Catalog Number Hospital Part Current M inimal Lot# / Charge Number Stock Stock Serial# Code SHEATH 7FR Terumo 1 [id number] 057191 911911 5 [place] ([id number]) GUIDE 7FR EBU Medtronic 1 [id number] 271738 308720 114854 0 3.5 SH catheter ([id number]) CHOICE PT [place] 1 [id number] 013776 553771 050583 5 Extra Support Scientific 182cm wire ([id number]) INFLATOR Merit Merit 1 BS0000 627161 128370 974753 1 5 Say-Hey (AH4738) ACIST Syringe Acist 1 19842 019175 044339 200307 2 0 (64320) Medical Systems Inc ACIST Hand Acist 1 42009 496981 443176 446177 5 Control Medical (91857) Systems Inc ACIST Manifold Acist 1 69713 516969 160321 515329 5 (47764) Medical Systems Inc Medline Cath Medline 1 [id number] 281975 38771 490828 5 Pack ([id number]) Bag Decanter Microtek 1 178641 24448 904891 5 () Medical Inc. EMERALD Guide Cardinal 1 502-455 088615 411283 993164 5 Wire (502-455) Health GUIDE 7FR EBU Medtronic 1 [id number] 612193 951237 237686 0 4.0 SH catheter ([id number]) FIELDER XT [place] 1 [id number] 062392 07162 270695 5 190cm Vascular guidewire ([id number]) EUPHORA 1.5 x Medtronic 1 [id number] 614836 091365 549118 5 [id number] 15 Balloon ([id number]) EUPHORA 2.0 x Medtronic 1 [id number] 301125 943138 406199 5 [id number] 20 Balloon ([id number]) CHARLEY RX 2.0 x Medtronic 1 [id number] 601290 9385552 684180 5 [id number] 26 stent ([id number]) EXOSEAL 7Fr Cardinal 1 EX700 723184 562854 662700 5 (EX700) Health FEMSTOP Gold St Rohit 1 [id number] 746257 488641 744211 5 ([id number]) Signature Audit Twisp Stage Time Signature Unsigned Intra-Procedure 06/28/2019 Ni Guzman 2:53:47 PM RT(R) Signatures Performing Physician : Signature : Leandro Santa MD Date : Time : Monitor : Ni Guzman RT Signature : Date : Time : Nurse : Michel Briscoe RN Signature : Date : Time : [address] [place] [address]
--- NOTE | ~2019-06-23 | HEMODYNAMI ---
PATIENT:JAMIE BELL MEDICAL RECORD: [id number] : 46 [facility] [id number] ADMISSION DATE: 06/24/19 Generatedon:06/27/201918:08 Patient name: JAMIE BELL Patient #: [id number] S SN: [id number] : 1950 Date of study: 06/27/2019 Page: Of Hemodynamic Procedure Report Patient Data Patient Demographics Procedure consent was obtained First Name: JAMIE Gender: Female Last Name: RAY : 1950 Patient #: [id number] Age: 68 year(s) Race: SSN: [id number] Additional ID: [id number] Contact details [address]: [address] [place] [address] State: [place] City: [place] Zip code: [address] Past Medical History Allergies Allergen Reaction Date Comments Reported Other allergy 06/27/2019 penicillin, clonadine Admission Admission Data Admission Date: 06/24/2019 Admission Time: 13:34 Arrival Date: 06/24/2019 Arrival Time: 13:34 Admit Source: Emergency Insurance Payor: Medicare, department Medicaid Room #: D.2115 Height (in.): 63 BSA: 2.12 (m2) Height (cm.): 160.02 BMI: 43.93 (kg/m2) Weight (lbs.): 248 Weight (kg.): 112.49 Lab Results Lab Result Date: 06/27/2019 Lab Result Time: 0:00 Biochemistry Name Units Result Min Max BUN mg/dl 41 --(----)-* 7 18 Creatinine mg/dl 4.1 --(----)-* 0.6 1.3 CBC Name Units Result Min Max Hemoglobin g/dl 10.3 *-(----)-- 13.5 17.5 Procedure Procedure Types Cath Procedure Diagnostic Procedure LHC LH w/Coronaries Sedation Charges Moderate Sedation up to 15 minutes PCI Procedure Coronary Stent Coronary Stent Initial Procedure Description Procedure Date Procedure Date: 06/27/2019 Procedure Start Time: 17:40 Procedure End Time: 18:03 Procedure Staff Name Function Leandro Santa MD Performing Physician David Mckeon RN Nurse Ni Guzman RT Scrub Harshad Siu RT Monitor Procedure Data Cath Procedure Fluoroscopy Diagnostic fluoroscopy Total fluoroscopy Time: 7.4 time: 7.4 min min Diagnostic fluoroscopy Total fluoroscopy dose: dose: 1285 mGy 1285 mGy Contrast Material Contrast Material Type Amount (ml) Isovue 300 92 Entry Location Entry Primary Successful Side Size Upsize Upsize Entry Closure Succes sful Closure Location (Fr) 1 (Fr) 2 (Fr) Remarks Device Remarks Femoral Right 5 Fr 6 Fr Exoseal artery Short Estimated blood loss: 10 ml Diagnostic catheters Device Type Used For End Catheter Placement MULTIPACK Pigtail 5 Fr Procedure catheter MULTIPACK JL 4.0 5Fr Procedure catheter MULTIPACK 3DRC 5Fr Procedure catheter Procedure Complications No complications Procedure Medications Medication Administration Route Dosage Oxygen etCO2 Nasal cannula 2 l/min Lidocaine 2% added to field 20 Heparin Flush Bag added to field 2 bags (1000units/500ml NS) 0.9% NaCl I.V. 100 ml/hr Versed I.V. 1 mg Fentanyl I.V. 50 mcg Heparin Bolus I.V. 4000 units Integrilin (Bolus I.V. 10.2 ml 2mg/ml) 0.9% NaCl I.V. 300 ml/hr Lasix I.V. 40 mg Plavix P.O. 600 mg Versed I.V. 1 mg Fentanyl I.V. 50 mcg Fentanyl I.V. 25 mcg Hemodynamics Rest BSA: 2.12 (m2) HGB: 10.3 (g/dl) O2 Consumption: Estimated: 185.86 (ml/min) O2 Co nsumption indexed: Estimated:87.67 (ml/min/m) Heart Rate: 58 (bpm) Snapshots Pre Cath Intra NCS Post Cath Vital Signs Time Heart Resp SPO2 etCO2 NIBP (mmHg) Rhythm Pain Sedation Rate (ipm) (%) (mmHg) Status Level (bpm) 17:32:53 62 16 98 0 191/98(147) NSR 0 (11) 10(A) , No pain 17:37:22 58 14 95 0 181/82(108) NSR 0 (11) 10(A) , No pain 17:41:50 56 18 92 0 148/68(106) NSR 0 (11) 10(A) , No pain 17:46:08 57 15 95 0 153/65(107) NSR 0 (11) 9(A) , No pain 17:50:28 56 14 96 0 129/62(88) NSR 0 (11) 9(A) , No pain 17:54:34 66 14 98 0 133/81(109) NSR 0 (11) 10(A) , No pain 17:59:37 66 12 99 0 168/91(114) NSR 0 (11) 10(A) , No pain Medications Time Medication Route Dose Verified Delivered Reason Notes Effectiveness by by 17:35:15 Oxygen etCO2 2 Leandro Buffie used for Nasal l/min Kiet Mckeon RN procedure cannula 17:35:23 Lidocaine 2% added 20ml Leandro Leandro for local to vial Kiet Santa MD anesthetic field 17:35:28 Heparin Flush added 2 Leandro Leandro used for Bag to bags Kiet Santa MD procedure (1000units/500ml field NS) 17:35:37 0.9% NaCl I.V. 100 Leandro Buffie Per physician ml/hr Kiet Mckeon RN 17:40:30 Versed I.V. 1 mg Leandro Buffie for sedation Kiet Mckeon RN 17:40:36 Fentanyl I.V. 50 Leandro Buffie for sedation mcg Kiet Mckeon RN 17:43:41 Versed I.V. 1 mg Leandro Buffie for sedation Kiet Mckeon RN 17:43:46 Fentanyl I.V. 50 Leandro Buffie for sedation mcg Kiet Mckeon RN 17:45:47 Heparin Bolus I.V. 4000 Leandro Buffie for verif ied units Kiet Mckeon RN anticoagulation with dr santa 17:49:10 Integrilin I.V. 10.2 Leandro Buffie for Waste d (Bolus 2mg/ml) ml Kiet Mckeon RN antiplatelet 9.8 ml therapy of vial 17:53:49 Fentanyl I.V. 25 Leandro Buffie for sedation mcg Kiet Mckeon RN 17:57:15 0.9% NaCl I.V. 300 Leandro Buffie Per physician ml/hr Kiet Mckeon RN 18:00:28 Lasix I.V. 40 mg Leandro Buffie Per physician Kiet Mckeon RN 18:05:14 Plavix P.O. 600 Leandro Hernandez for mg Kiet Mckeon RN antiplatelet therapy Procedure Log Time Note 14:54:57 Informed consent obtained and on chart 16:49:44 Diagnostic Cath Status : Elective 16:52:39 ACC Patient presents with Unstable Angina CCS Anginal Class 3--Marked limitation of physical activity, angina occurs with ordinary activity.. 16:52:52 Procedure Status Urgent Heart Cath (IP). 16:52:55 Wero Perez RT(R) sent for patient. Start room use. 16:52:56 Time tracking: Regular hours (M-F 7:00 - 5:00) 16:52:59 Plan of Care:Hemodynamics will remain stable., Cardiac rhythm will remain stable., Comfort level will be maintained., Respiratory function will remain adequate., Patient/ family verbilizes understanding of procedure., Procedure tolerated without complication., Recovers from procedure without complications.. 16:57:26 Admit Source: Emergency department 16:57:31 Arrival Date: 06/24/2019 1:34:00 PM 16:57:39 Insurance Payor : Medicare, Medicaid 16:57:54 Patient Height : 63 inches 16:57:58 Patient Weight : 248 lbs 16:58:37 Lab Result : Hemoglobin 10.3 g/dl 16:58:37 Lab Result : Creatinine 4.1 mg/dl 16:58:37 Lab Result : BUN 41 mg/dl 17:18:21 Patient received from Med II to [facility] 2 Alert and oriented. Tansferred to table in Supine position. 17:18:22 Warm blankets applied, and tameka hugger turned on for patient comfort. 17:18:22 Correct patient and procedure confirmed by team. 17:18:23 ECG and BP/O2 sat monitors applied to patient. 17:18:24 Vital chart was started 17:35:15 Oxygen 2 l/min etCO2 Nasal cannula was administered by David Mckeon RN; used for procedure; 17:35:23 Lidocaine 2% 20ml vial added to field was administered by Leandro Santa MD; for local anesthetic; 17:35:28 Heparin Flush Bag (1000units/500ml NS) 2 bags added to field was administered by Leandro Santa MD; used for procedure; 17:35:37 0.9% NaCl 100 ml/hr I.V. was administered by David Mckeon RN; Per physician; 17:37:00 Baseline sample Acquired. 17:37:22 Rhythm: sinus rhythm 17:37:25 Full Disclosure recording started 17:37:44 H&P Date Dictated: 06/23/2019 Within 30 days and on chart.. 17:37:44 Pre-procedure instructions explained to patient. 17:37:45 Pre-op teaching completed and patient verbalized understanding. 17:37:47 Family in patients room. 17:37:49 Patient NPO since Midnight. 17:38:33 Patient allergic to Other allergypenicillin, clonadine 17:38:35 Is the patient allergic to Iodine/contrast media? No. 17:38:36 Is patient on blood thinner?No 17:38:37 Patient diabetic? Yes. 17:38:39 Previous problem with sedation/anesthesia? No ? 17:38:40 Snore? Yes 17:38:41 Sleep apnea? No 17:38:42 Deviated septum? No 17:38:42 Opens mouth fully? Yes 17:38:43 Sticks out tongue? Yes 17:38:45 Airway obstruction? No ? 17:38:46 Dentures? No ? 17:38:48 Pre procedure: right dorsailis pedis pulse 1+ Palpable, but thready & weak; easily obliterated 17:38:50 Patient pain scale 0/10 ?. 17:39:04 IV started by David Mckeon RN inleft forearm with a 22 gauge IV catheter with 0.9% NaCl at KVO. 17:39:06 Lab results completed and on chart. 17:39:08 Right groin area was prepped with chlora-prep and draped in sterile fashion 17:39:08 Alarms reviewed by R. N. 17:39:09 Sharps counted by scrub and verified by R.N. 17:39:10 Use device set Femoral Dx 17:39:11 ACIST Syringe (10872) opened to sterile field. 17:39:12 Bag Decanter () opened to sterile field. 17:39:12 Medline Cath Pack ([id number]) opened to sterile field. 17:39:13 ACIST Hand Control (39420) opened to sterile field. 17:39:13 ACIST Manifold (94616) opened to sterile field. 17:39:14 Tegaderm 4 x 4 (1626W) opened to sterile field. 17:39:15 DIAGNOSTIC Multipack 5Fr catheter set (EE6856) opened to sterile field. 17:39:16 SHEATH 5FR [place] (ZHZ912) opened to sterile field. 17:39:16 EMERALD Guide Wire (547-305) opened to sterile field. 17:39:22 Physician arrived 17:39:22 --------ALL STOP TIME OUT------ 17:39:23 Final Timeout: patient, procedure, and site verified with staff and physician. All members of the team are in agreement. 17:39:24 Right groin site verified by team. 17:39:27 Fire Safety Assessment: A--An alcohol-based skin anteseptic being used preoperatively., C--Open oxygen or nitrous oxide is being used., D--An ESU, laser, or fiber-optic light is being used. 17:39:32 Physical assessment completed. ASA score P 3 - A patient with severe systemic disease as per Leandro Santa MD. 17:39:42 5) <15 or on dialysis Very severe, or end stage kidney failure. 17:39:47 Maximum allowable contrast dose (3.7 X eGFR X 0.75)31 ml. 17:39:49 Sedation plan: IV Moderate Sedation Medication:Versed, Fentanyl 17:39:55 Zero performed for pressure channel P1 17:40:01 Zero performed for pressure channel P1 17:40:18 Zero performed for pressure channel P1 17:40:30 Versed 1 mg I.V. was administered by David Mckeon RN; for sedation; 17:40:36 Fentanyl 50 mcg I.V. was administered by David Mckeon RN; for sedation; 17:40:54 Procedure started. 17:40:57 Local anesthetic to right femoral artery with Lidocaine 2% by Leandro Santa MD.INITIAL ACCESS ONLY 17:41:03 A 5 Fr sheath was inserted into the Right Femoral artery 17:41:09 A MULTIPACK Pigtail 5 Fr catheter was advanced over the wire and used for Procedure. 17:41:16 LV gram done using BOOTHE 17:41:19 Injector settings: Ml/sec: 3, Volume: 6, 17:41:24 EF : 60 % 17:41:25 Catheter exchanged over wire. 17:41:28 A MULTIPACK JL 4.0 5Fr catheter was advanced over the wire and used for Procedure. 17:42:50 LCA angiography performed. 17:43:06 Catheter exchanged over wire. 17:43:10 A MULTIPACK 3DRC 5Fr catheter was advanced over the wire and used for Procedure. 17:43:41 Versed 1 mg I.V. was administered by David Mckeon RN; for sedation; 17:43:46 Fentanyl 50 mcg I.V. was administered by David Mckeon RN; for sedation; 17:44:12 RCA angiography performed. 17:44:18 SHEATH 6FR [place] (AVQ686) opened to sterile field. 17:44:37 GUIDE 6FR AR 2.0 SH catheter ([id number]) opened to sterile field. 17:44:38 INFLATOR Merit BasixCompak (MU3938) opened to sterile field. 17:44:42 CHOICE PT Extra Support 182cm wire ([id number]) opened to sterile field. 17:45:47 Heparin Bolus 4000 units I.V. was administered by David Mckeon RN; for anticoagulation; verified with dr santa 17:46:46 Sheath upsized to a 6 Fr Short. 17:47:09 6 Fr ar 2 sh guide catheter was inserted over the wire 17:47:15 Guide Catheter removed. unable to cannulate vessel. 17:47:23 GUIDE 6FR AR 1.0 SH catheter ([id number]) opened to sterile field. 17:47:37 6 Fr ar 1 sh guide catheter was inserted over the wire 17:47:49 ? wire advanced. 17:47:53 Guide Catheter removed. unable to cannulate vessel. 17:48:01 GUIDE 6FR 3DRC SH catheter ([id number]) opened to sterile field. 17:48:13 6 Fr 3drc sh guide catheter was inserted over the wire 17:48:42 Pre PCI Site: [place] RCA has 90% stenosis. 17:49:10 Integrilin (Bolus 2mg/ml) 10.2 ml I.V. was administered by David Mckeon RN; for antiplatelet therapy; Wasted 9.8 ml of vial 17:49:45 choice pt es wire advanced. 17:49:48 Wire advanced across lesion. 17:50:05 ACC Pre-intervention ANDREA Flow is 3. 17:50:32 Inflate balloon Inflation number: 1 A EUPHORA 3.0 x 30 Balloon ([id number]) was prepped and advanced across the Prox RCA , then inflated to 21 NOVA for 0:10 (min:sec) . 17:50:49 Inflation number: 2 The EUPHORA 3.0 x 30 Balloon ([id number]) was reinflated across the Prox RCA , to 21 NOVA for 0:10 (min:sec) . 17:51:47 Balloon removed over the wire. 17:53:17 Place stent Inflation Number: 3 A CHARLEY RX 3.0 x 38 stent ([id number]) was prepped and advanced across the Prox RCA . The stent was deployed at 23 NOVA for 0:10 (min:sec) . 17:53:38 Stent catheter was removed intact over wire. 17:53:49 Fentanyl 25 mcg I.V. was administered by David Mckeon RN; for sedation; 17:54:55 Inflate balloon Inflation number: 4 A EUPHORA 3.5 x 30 Balloon ([id number]) was prepped and advanced across the Prox RCA , then inflated to 17 NOVA for 0:10 (min:sec) . 17:55:14 Inflation number: 5 The EUPHORA 3.5 x 30 Balloon ([id number]) was reinflated across the Prox RCA , to 17 NOVA for 0:10 (min:sec) . 17:55:31 Inflation number: 6 The EUPHORA 3.5 x 30 Balloon ([id number]) was reinflated across the Prox RCA , to 21 NOVA for 0:10 (min:sec) . 17:56:18 Stent catheter was removed intact over wire. 17:57:15 0.9% NaCl 300 ml/hr I.V. was administered by David Mckeon RN; Per physician; 17:58:10 Place stent Inflation Number: 1 A CHARLEY RX 3.0 x 30 stent ([id number]) was prepped and advanced across the Mid RCA . The stent was deployed at 21 NOVA for 0:10 (min:sec) . 17:58:14 ACC Post-intervention ANDREA Flow is 3. 17:59:34 Post PCI Site: [place] RCA has 0% stenosis. 18:00:27 Stent catheter was removed intact over wire. 18:00:27 Wire removed. 18:00:27 Guide catheter removed. 18:00:28 Lasix 40 mg I.V. was administered by David Mckeon RN; Per physician; 18:00:32 EXOSEAL 6Fr (EX600) opened to sterile field. 18:00:39 Sheath removed intact; hemostasis achieved with Exoseal to the Right Femoral artery. 18:00:41 Procedure ended.(Physican Out) 18:01:06 Fluoroscopy time 07.40 minutes. 18:01:10 Fluoroscopy dose: 1285 mGy 18:01:10 Flurop Dose total: 1285 18:01:16 Dose Area Product 71984 mGy/cm. 18:01:43 Contrast amount:Isovue 300 92ml. 18:01:45 Maximum allowable dose exceeded? Yes. 18:01:46 Sharps counted by scrub and verified by R.N. 18:01:47 Insertion/operative site no bleeding no hematoma. 18:01:49 Post-op/insertion site Right Femoral artery dressed using a 4 x 4 and Tegaderm. 18:01:53 Post right femoral artery:stable, soft, clean and dry 18:01:54 Post Procedure Pulses reassessed and unchanged 18:01:59 Post-procedure physical assessment completed. ASA score P 3 - A patient with severe systemic disease as per Leandro Santa MD. 18:02:09 Post procedure rhythm: unchanged. 18:02:12 Estimated blood loss: 10 ml 18:02:14 Post procedure instruction explained to patient.Patient verbalizes understanding. 18:02:14 Patient needs reinforcement of post procedure teaching. 18:02:25 Procedure type changed to Cath procedure, Diagnostic procedure, LHC, LHC w/Coronaries, Sedation Charges, Moderate Sedation up to 15 minutes, PCI procedure, Coronary Stent, Coronary Stent Initial 18:02:49 Procedure and supply charges have been captured, reviewed, submitted and are correct. 18:02:51 Procedure Complication : No complications 18:02:53 Vital chart was stopped 18:02:53 See physician's report for complete and final results. 18:02:55 Report given to PCU. 18:02:58 Patient transfered to PCU with Stretcher. 18:02:59 Procedure ended. 18:02:59 Full Disclosure recording stopped 18:03:06 ACC-PCI Only Patient was given prescriptions, or instructed by Leandro Santa MD to start/continue the following medications upon discharge: Aspirin, Plavix 18:03:07 End room use (Document Last) 18:05:14 Plavix 600 mg P.O. was administered by David Mckeon RN; for antiplatelet therapy; Intervention Summary Intervention Notes Time ActionType Lesion and Equipment Used Action# Pressure Duration Attributes 17:50:32 Inflate Prox RCA EUPHORA 3.0 x 1 21 00:10 balloon 30 Balloon ([id number]) 17:50:49 Reinflate Prox RCA EUPHORA 3.0 x 2 21 00:10 balloon 30 Balloon ([id number]) 17:53:17 Place stent Prox RCA CHARLEY RX 3.0 x 3 23 00:10 38 stent ([id number]) 17:54:55 Inflate Prox RCA EUPHORA 3.5 x 4 17 00:10 balloon 30 Balloon ([id number]) 17:55:14 Reinflate Prox RCA EUPHORA 3.5 x 5 17 00:10 balloon 30 Balloon ([id number]) 17:55:31 Reinflate Prox RCA EUPHORA 3.5 x 6 21 00:10 balloon 30 Balloon ([id number]) 17:58:10 Place stent Mid RCA CHARLEY RX 3.0 x 1 21 00:10 30 stent ([id number]) Device Usage Item Name Manufacture Quantity Catalog Number Hospital Part Current M inimal Lot# / Charge Number Stock Stock Serial# Code ACIST Syringe Acist 1 65452 197612 287969 397895 2 0 (24137) Medical Systems Inc Bag Decanter Microtek 1 2001S 619373 28662 579484 5 () Medical Inc. Medline Cath Medline 1 [id number] 336325 81538 051853 5 Pack ([id number]) ACIST Hand Acist 1 93770 323607 150886 076832 5 Control Medical (66579) Systems Inc ACIST Manifold Acist 1 64893 416932 384197 944730 5 (78401) Medical Systems Inc Tegaderm 4 x 4 3M 1 1626W 066604 519252 218678 5 (1626W) DIAGNOSTIC Cardinal 1 OT0885 354120 28380 288303 3 0 Multipack 5Fr Health catheter set (MF0334) SHEATH 5FR Terumo 1 ERB549 060736 252601 394789 5 [place] (DKU580) EMERALD Guide Cardinal 1 502-455 554963 144455 636832 5 Wire (502-455) Health MULTIPACK Cardinal 1 704976 5 Pigtail 5 Fr Health catheter MULTIPACK JL Cardinal 1 937603 5 4.0 5Fr Health catheter MULTIPACK 3DRC Cardinal 1 509061 5 5Fr catheter Health SHEATH 6FR Terumo 1 APT990 108908 062202 398901 4 0 [place] (KND974) GUIDE 6FR AR Medtronic 1 [id number] 977608 44596 121311 1 2.0 SH catheter (CM3WF8FT) INFLATOR Merit Merit 1 OW8725 457104 235609 952915 1 5 [employer] (KG4939) CHOICE PT Paisley 1 [id number] 450925 629215 664046 5 Extra Support Scientific 182cm wire (7257875R2) GUIDE 6FR AR Medtronic 1 [id number] 000707 04263 202958 1 1.0 SH catheter ([id number]) GUIDE 6FR 3DRC Medtronic 1 [id number] 272309 012538 830566 1 SH catheter ([id number]) EUPHORA 3.0 x Medtronic 1 [id number] 977963 384126 048697 5 [id number] 30 Balloon ([id number]) CHARLEY RX 3.0 x Medtronic 1 [id number] 872546 3720513 699240 5 [id number] 38 stent ([id number]) EUPHORA 3.5 x Medtronic 1 [id number] 136912 599828 587361 5 [id number] 30 Balloon ([id number]) CHARLEY RX 3.0 x Medtronic 1 [id number] 657365 0188505 321534 5 [id number] 30 stent ([id number]) EXOSEAL 6Fr Cardinal 1 EX600 211265 815645 691599 1 0 (EX600) Health Signature Audit [facility] Stage Time Signature Unsigned Intra-Procedure 06/27/2019 Harshad Siu 6:07:56 PM RT(R) Signatures Performing Physician : Signature : Leandro Santa MD Date : Time : Nurse : Buffie Mckeon RN Signature : Date : Time : Monitor : Harshad Siu RT Signature : Date : Time : [address] [place] [address]
--- NOTE | ~2019-06-23 | OP ---
PATIENT NAME: JAMIE BELL MEDICAL RECORD: [id number] :46 LOCATION:D.M2 D.2115 ADMISSION DATE:06/24/19 SURGEON: LILY BARR MD DATE OF OPERATION: 06/28/2019 PROCEDURES: 1. PTCA and stent, LAD diagonal. 2. Selective coronary angiography. INDICATION: Angina and coronary artery disease. PROCEDURE IN DETAIL: After informed consent was obtained and after a detailed description of risks, benefits as well as alternative therapies, the patient elected to proceed with angiogram and angioplasty. The left femoral area was prepped and draped in normal sterile fashion. Left femoral artery was cannulated via modified Seldinger technique with placement of 7-Italian sheath. All catheters exchanged through this sheath. FINDINGS: The circumflex was attempted; however, no wire would cross lesion in the circumflex. We then turned our attention to 99% stenosed LAD diagonal. The stent used 2.0 x 26 mm [place]. Result was 0% residual stenosis. OVERALL IMPRESSION: Successful PTCA stent of the LAD diagonal going from 99% initial stenosis to 0% residual. TRANSINT:[id number] Voice Confirmation ID: [id number] DOCUMENT ID: [id number] LILY BARR MD CC: [id number] DICTATION DATE: 06/28/19 1443 COUNTER CLERK: 06/28/19 1639 ADM IN [facility] [address] [place] [address]
[2019-06-23] MEDS ORDERED: HEART PILL (18:34)
[2019-06-23] MEDS ORDERED: MORPHINE (18:34)
[2019-06-23 18:44] VITALS: BP 165/66
--- NOTE | 2019-06-23 19:13 | NUR ---
BEDSIDE REPORT REC'D FROM ROGER THURSTON.
--- NOTE | 2019-06-23 19:16 | NUR ---
WASTE MANAGEMENT SPECIALIST AT BEDSIDE AT THIS TIME.
[2019-06-23 19:48] LABS: BASOPHILS 0.6 % (0-2); EOSINOPHILS 4.8 % (0-7); HEMATOCRIT 33.5 % (36.0-48.0); HEMOGLOBIN 10.8 g/dL (12-16); IMMATURE GRANULOCYTES 0.2 % (0-5); LYMPHOCYTES 26.1 % (15-50); MCH 26.9 pg (26.0-34.0); MCHC 32.2 g/dL (31.0-37.0); MCV 83.3 fL (80.0-100.0); MEAN PLATELET VOLUME 9.3 fL (7.4-10.4); MONOCYTES 10.4 % (2-11); NEUTROPHILS 57.9 % (40-80); PLATELET COUNT 290 10x3/uL (130-400); RBC 4.02 10x6/uL (4.00-5.40); RDW 14.1 % (11.5-14.5); WBC 5.4 10x3/uL (4.8-10.8)
[2019-06-23 19:51] LABS: APTT 34.2 SECONDS (22.8-39.4); INR 1.12 (0.85-1.17); PROTIME 13.9 SECONDS (11.6-15.0)
[2019-06-23 19:55] LABS: ALKALINE PHOSPHATASE 90 U/L (46-116); ALT (SGPT) 11 U/L (10-68); BILIRUBIN - TOTAL 0.25 mg/dL (0.2-1.3); CALC OSMOLALITY 286 mosm/kg (275-300); CALCIUM 9.1 mg/dL (8.5-10.1); CARBON DIOXIDE 20.3 mmol/L (21.0-32.0); CHLORIDE - SERUM 106 mmol/L (98-107); GLUCOSE 94 mg/dL (74-106); POTASSIUM - SERUM 4.5 mmol/L (3.5-5.1); PROTEIN - SERUM 7.5 g/dL (6.4-8.2); SODIUM 137 mmol/L (136-145); UREA NITROGEN 48 mg/dL (7-18); eGFR NON AFRICAN AMERICAN 12 mL/min (90-120)
[2019-06-23 20:05] LABS: CREATINE KINASE 56 UL (21-215); MAGNESIUM - SERUM 1.9 mg/dL (1.8-2.4); TROPONIN-I 0.017 ng/mL (0.000-0.060)
[2019-06-23 20:34] VITALS: BP 167/53
--- NOTE | 2019-06-23 20:42 | NUR ---
PT LAYING IN BED WITH EYES OPEN AND TV ON, HOB ELEVATED, NO S/S DISTRESS, RESPIRATIONS EVEN AND NONLABORED, NO C/O AT PRESENT.
--- NOTE | 2019-06-23 21:00 | NUR ---
PATIENT ARRIVED FROM ER. PATIENT IS ALERT AND ORIENTED, RESTING COMFORTABLY IN BED. RESPIRATIONS ARE EVEN AND UNLABORED. PATIENT REMAINS ON 2L NC. PATIENT USES HOME O2. TELEMETRY PLACED. REFUSES SCDS. ALL NEEDS MET AT THIS TIME. PATIENT HAS STRESS INCONTINENCE AND WEARS DEPENDS. PATIENT STATES THAT SHE IS BEDFAST. PATIENT SAID THAT SHE IS ABLE TO USES BEDPAN, EXPLAINED TO PATIENT THAT WE ARE A STRICT I&O FLOOR. THAT WE MEASURE EVERYTHING DOING IN AND OUT. CALL LIGHT WITHIN REACH. WILL CPOC.
--- NOTE | 2019-06-23 21:04 | NUR ---
REPORT CALLED TO ROGER NIX. PT AND DAUGHTER INFORMED OF ROOM ASSIGNMENT.
[2019-06-23 21:30] VITALS: BP 158/50
--- NOTE | 2019-06-23 21:45 | NUR ---
PATIENT ARRIVED FROM ER. ACCOMPANIED BY FAMILY. HIDE EXAMINER PLACED ON PATIENT. PATIENT IV IN RIGHT AC REMOVED FOR PATIENT COMFORT. PATIENT GIVEN URINAL EXPLAINED THAT WE ARE A STRICT I&O FLOOR AND THAT WE NEED TO MEASURE EVERYTHING GOING IN AND COMING OUT. RESPIRATIONS ARE EVEN AND UNLABORED. NO S/S OF DISTRESS. NO C/O PAIN. CALL LIGHT WITHIN REACH. NEEDS MET. WILL CPOC.
[2019-06-23] MEDS ORDERED: GAVILAX510 GM PO (22:10)
[2019-06-23] MEDS ORDERED: ISOSORBIDE MONO30 M1 PO (22:12)
[2019-06-23 22:41] VITALS: BP 124/46; BMI 44.0
[2019-06-24 01:49] LABS: BASOPHILS 0.7 % (0-2); EOSINOPHILS 6.5 % (0-7); HEMATOCRIT 32.2 % (36.0-48.0); HEMOGLOBIN 10.2 g/dL (12-16); IMMATURE GRANULOCYTES 0.4 % (0-5); LYMPHOCYTES 24.8 % (15-50); MCHC 31.7 g/dL (31.0-37.0); MCV 85.2 fL (80.0-100.0); MEAN PLATELET VOLUME 9.1 fL (7.4-10.4); MONOCYTES 14.2 % (2-11); NEUTROPHILS 53.4 % (40-80); PLATELET COUNT 276 10x3/uL (130-400); RBC 3.78 10x6/uL (4.00-5.40); RDW 14.4 % (11.5-14.5); WBC 5.6 10x3/uL (4.8-10.8)
[2019-06-24 02:27] LABS: ALBUMIN 2.6 g/dL (3.4-5.0); ALKALINE PHOSPHATASE 87 U/L (46-116); BILIRUBIN - TOTAL 0.22 mg/dL (0.2-1.3); CALC OSMOLALITY 286 mosm/kg (275-300); CHLORIDE - SERUM 107 mmol/L (98-107); CKMB 1.2 U/L (0.0-3.6); CREATINE KINASE 52 UL (21-215); GLUCOSE 114 mg/dL (74-106); POTASSIUM - SERUM 4.3 mmol/L (3.5-5.1); PROTEIN - SERUM 7.2 g/dL (6.4-8.2); SODIUM 137 mmol/L (136-145); TROPONIN-I 0.018 ng/mL (0.000-0.060); UREA NITROGEN 47 mg/dL (7-18); eGFR NON AFRICAN AMERICAN 12 mL/min (90-120)
[2019-06-24 02:29] LABS: ALT (SGPT) 17 U/L (10-68)
[2019-06-24 04:00] VITALS: BP 130/60
[2019-06-24 08:21] VITALS: BP 148/76
[2019-06-24 09:16] LABS: CREATINE KINASE 47 UL (21-215); TROPONIN-I < 0.017 ng/mL (0.000-0.060)
--- NOTE | 2019-06-24 11:29 | NUR ---
fsbs 114
--- NOTE | 2019-06-24 11:38 | NUR ---
LEON CATHETER TO PLACED PER DR VALIENTE'S ORDER FOR STRICT ACCURATE INTAKE AND OUTPUT
[2019-06-24 12:09] VITALS: BP 132/75
[2019-06-24 12:54] LABS: ERYTHROCYTE SEDIMENTATION RATE 64 mm/hr (0-30)
[2019-06-24 12:59] VITALS: BMI 43.9
[2019-06-24 14:18] VITALS: Ht 160 cm; Wt 112.5 kg
[2019-06-24 15:24] LABS: CREATININE - URINE 68.1 mg/dL (30-125)
[2019-06-24 15:30] LABS: APPEARANCE TURBID (CLEAR); COLOR STRAW (YELLOW); GLUCOSE NEGATIVE (NEGATIVE); NITRITE POSITIVE (NEGATIVE); PROTEIN 2+ mg/dL (NEGATIVE); SPECIFIC GRAVITY 1.015 (1.005-1.020)
[2019-06-24 15:31] LABS: BILIRUBIN NEGATIVE (NEGATIVE); EPITHELIAL CELLS 0-5 /hpf (0-5); KETONE NEGATIVE (NEGATIVE); RED CELLS - URINE 0-5 /hpf (0-5); UROBILINOGEN NORMAL (NORMAL); WHITE CELLS - URINE >50 /hpf (0-5)
[2019-06-24 15:32] LABS: BACTERIA MODERATE /hpf (NONE SEEN); PROTEIN - URINE 1258.8 mg/dL (0.0-11.9)
[2019-06-24 17:50] VITALS: BP 108/54
--- NOTE | 2019-06-24 19:00 | NUR ---
RESUMING PATIENT CARE. PATIENT IS ALERT AND ORIENTED, RESTING COMFORTABLY IN BED. RESPIRATIONS ARE EVEN AND UNLABORED. PATIENT REMAINS ON 2L NC. NO S/S OF DISTRESS. NO C/ OF PAIN. DENIES NEEDS. CALL LIGHT WITHIN REACH. WILL CPOC.
[2019-06-24 20:00] VITALS: BP 133/53
[2019-06-25] VITALS: BP 139/79
[2019-06-25 04:00] VITALS: BP 138/52
[2019-06-25 04:38] LABS: BASOPHILS 0.9 % (0-2); EOSINOPHILS 7.7 % (0-7); HEMATOCRIT 29.9 % (36.0-48.0); HEMOGLOBIN 9.3 g/dL (12-16); IMMATURE GRANULOCYTES 0.2 % (0-5); LYMPHOCYTES 31.5 % (15-50); MCHC 31.1 g/dL (31.0-37.0); MCV 86.7 fL (80.0-100.0); MEAN PLATELET VOLUME 9.4 fL (7.4-10.4); MONOCYTES 16.9 % (2-11); NEUTROPHILS 42.8 % (40-80); PLATELET COUNT 268 10x3/uL (130-400); RBC 3.45 10x6/uL (4.00-5.40); RDW 14.8 % (11.5-14.5); WBC 5.6 10x3/uL (4.8-10.8)
[2019-06-25 04:49] LABS: CALCIUM 8.8 mg/dL (8.5-10.1); CARBON DIOXIDE 20.9 mmol/L (21.0-32.0); CREATININE - SERUM 4.4 mg/dL (0.6-1.3); POTASSIUM - SERUM 4.9 mmol/L (3.5-5.1)
[2019-06-25 08:28] VITALS: BP 113/64
--- NOTE | 2019-06-25 10:00 | NUR ---
BILAT SCDS ON ORDERED.
[2019-06-25 11:35] VITALS: BP 92/44
--- NOTE | 2019-06-25 12:32 | NUR ---
PLACED IN TEMPORARY CONTACT ISOLATION PER PROTOCOL, POSS MRSA IN URINE.
--- NOTE | 2019-06-25 14:21 | NUR ---
OOB WITH PT ASSIST. FAMILY AT BS. CALL LIGHT IN REACH.
[2019-06-25 16:04] VITALS: BP 120/43
--- NOTE | 2019-06-25 19:05 | NUR ---
INITIAL ROUNDS COMPLETED. PT DENIES ANY DISCOMFORT. SR UP X2, CALL LIGHT WITHIN REACH.
--- NOTE | 2019-06-25 19:38 | NUR ---
VSS. SB PER CM HR 57. ALERT AND ORIENTED TO PERSON,PLACE AND TIME. BIRD. STATES FEET ARE TINGLING. SCD'S REMOVED PER PT REQUEST. IV TO UPPER L ARM WITH BICARB AT 75CC/HR AND NS AT 75CC/HR. IV PATENT. LUNGS ESSENTIALLY CTA. LEON DRAINING YELLOW URINE. PT ON CONTACT ISOLATION R/O MRSA IN URINE. SR UP X2, CALL LIGHT WITHIN REACH AND BED ALARM ON.
[2019-06-25 20:00] VITALS: BP 122/47
--- NOTE | 2019-06-25 21:23 | NUR ---
PM MEDS GIVEN BIPIN JORDAN HELD FOR BP 122/47. REFUSED PM FSBS. SR UP X2, CALL LIGHT WITHIN REACH.
--- NOTE | 2019-06-25 23:05 | NUR ---
PT AWAKE; DENIES ANY DISCOMFORT. SR UP X2,CALL LIGHT WITHIN REACH.
[2019-06-26] VITALS: BP 140/57
--- NOTE | 2019-06-26 00:42 | NUR ---
PT PLAYING ON PHONE. NO DISTRESS NOTED. SR UP X2, CALL LIGHT WITHIN REACH.
--- NOTE | 2019-06-26 02:14 | NUR ---
PT RESTING WITH EYES CLOSED. RESP EVEN AND REGULAR. SR UP X2, CALL LIGHT WITHIN REACH.
[2019-06-26 04:00] VITALS: BP 161/63
--- NOTE | 2019-06-26 04:50 | NUR ---
PT RESTING WITH EYES CLOSED. RESP EVEN AND REGULAR. SR UP X2,CALL LIGHT WITHIN REACH.
[2019-06-26 05:04] LABS: BASOPHILS 0.9 % (0-2); EOSINOPHILS 9.9 % (0-7); HEMATOCRIT 28.7 % (36.0-48.0); HEMOGLOBIN 8.8 g/dL (12-16); IMMATURE GRANULOCYTES 0.2 % (0-5); LYMPHOCYTES 32.1 % (15-50); MCH 26.6 pg (26.0-34.0); MCHC 30.7 g/dL (31.0-37.0); MCV 86.7 fL (80.0-100.0); MEAN PLATELET VOLUME 9.3 fL (7.4-10.4); MONOCYTES 13.3 % (2-11); NEUTROPHILS 43.6 % (40-80); PLATELET COUNT 245 10x3/uL (130-400); RBC 3.31 10x6/uL (4.00-5.40); RDW 14.7 % (11.5-14.5); WBC 5.3 10x3/uL (4.8-10.8)
[2019-06-26 05:19] LABS: ANION GAP 15.4 mmol/L (8-16); CALCIUM 8.6 mg/dL (8.5-10.1); CARBON DIOXIDE 22.1 mmol/L (21.0-32.0); CREATININE - SERUM 4.2 mg/dL (0.6-1.3); POTASSIUM - SERUM 4.5 mmol/L (3.5-5.1)
--- NOTE | 2019-06-26 05:45 | NUR ---
VSS THROUGHOUT NIGHT. SB PER CM HR IN 50'S. PT DENIED ANY DISCOMFORT. NEEDS MET; WILL CONTINUE TO MONITOR.
[2019-06-26 08:32] VITALS: BP 119/64
--- NOTE | 2019-06-26 09:12 | NUR ---
TELEMETRY SB. ASSISTED TO CHAIR BY PT. IV PATENT. CALL LIGHT IN REACH.
--- NOTE | 2019-06-26 13:03 | NUR ---
CONSENTS SIGNED FOR [facility]. WILL CONT. PLAN OF CARE.
[2019-06-26 13:05] VITALS: BP 138/53
--- NOTE | 2019-06-26 15:09 | NUR ---
1ST UNIT PRBC STARTED. VS WNL. LINE IS PATENT.
[2019-06-26 16:19] VITALS: BP 114/52
--- NOTE | 2019-06-26 17:56 | NUR ---
BLOOD COMPLETED WITHOUT ADVERSE REACTION NOTED.
[2019-06-26 20:00] VITALS: BP 155/54
--- NOTE | 2019-06-26 21:50 | NUR ---
INITIAL ROUNDS COMPLETED AT 1905 HRS. FAMILY AT BEDSIDE. PT REQUESING SOMETHING FOR BLADDER SPASMS. RENAL SERVICES PAGED. ASSESSMENT COMPLETED AT 1945 HRS. VSS. ALERT AND ORIENTED TO PERSON, PLACE AND TIME. MARGE. PT ON CONTACT ISOLATION FOR MRSA IN URINE. LUNGS ESSENTIALLY CTA. IV TO UPPER L ARM WITH BICARB DRIP AT 75CC/HR. IV PATENT. ABD SOFT WITH ACTIVE BS NOTED. SMALL RED SPOT NOTED ON L INNER THIGH AND UNDER ABD FOLD. LEON DRAINING YELLOW URINE. RENAL SREVICES REPAGED AT 1999 HRS. [facility] CALLED AT 202O HRS. Merary WINN APN RETURNS CALL AND INFORMED OF PT'S C/O BLADDER SPASMS. NEW ORDERS RECEIVED AND NOTED. DR VALIENTE FROM RENAL SERVICES CALLED BACK AT 2024 HRS. INFORMED OF ORDER FOR PYRIDIUM IF OK WITH HIM. STATED THAT WOULD BE FINE. PM MEDS GIVEN. BED BATH DONE, BED LINENS CHANGED. PT TOLERATED ACTIVITY WELL. PT CURRENTLY WATCHING TV. SR UP X2,CALL LIGHT WITHIN REACH.
[2019-06-27] VITALS: BP 156/59
--- NOTE | 2019-06-27 00:35 | NUR ---
PT RESTING WITH EYES CLOSED. RESP EVEN AND REGULAR. SR UP X2, CALL LIGHT WITHIN REACH.
--- NOTE | 2019-06-27 02:05 | NUR ---
PT RESTING WITH EYES CLOSED. RESP EVEN AND REGULAR. SR UP X2, CALL LIGHT WITHIN REACH.
[2019-06-27 04:00] VITALS: BP 132/57
--- NOTE | 2019-06-27 04:32 | NUR ---
PT RESTING WITH EYES CLOSED. RESP EVEN AND REGULAR. SR UP X2, CALL LIGHT WITHIN REACH.
--- NOTE | 2019-06-27 05:50 | NUR ---
VSS THROUGHOUT NIGHT. SB PER CM. PT STATED NO BLADDER SPASMS SINCE PYRIDIUM ADMINISTRATION. NPO FOR C TODAY. NEEDS MET; WILL CONTINUE TO MONITOR.
[2019-06-27 06:40] LABS: BASOPHILS 1.1 % (0-2); EOSINOPHILS 10.3 % (0-7); HEMATOCRIT 33.5 % (36.0-48.0); HEMOGLOBIN 10.3 g/dL (12-16); IMMATURE GRANULOCYTES 0.4 % (0-5); LYMPHOCYTES 30.1 % (15-50); MCH 26.3 pg (26.0-34.0); MCHC 30.7 g/dL (31.0-37.0); MCV 85.7 fL (80.0-100.0); MEAN PLATELET VOLUME 9.8 fL (7.4-10.4); MONOCYTES 14.2 % (2-11); NEUTROPHILS 43.9 % (40-80); PLATELET COUNT 284 10x3/uL (130-400); RBC 3.91 10x6/uL (4.00-5.40); RDW 16.1 % (11.5-14.5); WBC 4.5 10x3/uL (4.8-10.8)
[2019-06-27 06:55] LABS: ANION GAP 11.6 mmol/L (8-16); CALCIUM 8.8 mg/dL (8.5-10.1); CARBON DIOXIDE 26.9 mmol/L (21.0-32.0); CREATININE - SERUM 4.1 mg/dL (0.6-1.3); POTASSIUM - SERUM 4.5 mmol/L (3.5-5.1)
--- NOTE | 2019-06-27 07:15 | NUR ---
RECEIVED PT IN BED EYES CLOSED RESP UNLABORED SKIN W/D NAD NOTED
[2019-06-27 09:42] VITALS: BP 133/64
[2019-06-27 17:08] LABS: SPE - A/G RATIO 0.7 (0.7-1.7); SPE - ALBUMIN 2.9 g/dL (2.9-4.4); SPE - ALPHA-1 GLOBULIN 0.3 g/dL (0.0-0.4); SPE - ALPHA-2 GLOBULIN 0.8 g/dL (0.4-1.0); SPE - M-SPIKE 0.3 g/dL (Not Observed); SPE - TOTAL PROTEIN 6.9 g/dL (6.0-8.5)
[2019-06-27 19:08] LABS: UPE RAND - ALBUMIN 56.6 % (()); UPE RAND - ALPHA 1 GLOBULIN 2.3 % (()); UPE RAND - ALPHA 2 GLOBULIN 7.3 % (()); UPE RAND - BETA GLOBULIN 15.1 % (()); UPE RAND - GAMMA GLOBULIN 18.7 % (())
[2019-06-27 20:00] VITALS: BP 140/82
[2019-06-28] VITALS: BP 120/53
[2019-06-28 04:00] VITALS: BP 120/51
[2019-06-28 05:45] LABS: ANION GAP 11.1 mmol/L (8-16); CALCIUM 8.5 mg/dL (8.5-10.1); CREATININE - SERUM 3.9 mg/dL (0.6-1.3); POTASSIUM - SERUM 4.1 mmol/L (3.5-5.1)
[2019-06-28 06:46] LABS: HEMATOCRIT 31.6 % (36.0-48.0); HEMOGLOBIN 9.9 g/dL (12-16); MCH 26.6 pg (26.0-34.0); MCHC 31.3 g/dL (31.0-37.0); MCV 84.9 fL (80.0-100.0); MEAN PLATELET VOLUME 9.7 fL (7.4-10.4); PLATELET COUNT 270 10x3/uL (130-400); RBC 3.72 10x6/uL (4.00-5.40); RDW 15.8 % (11.5-14.5); WBC 4.3 10x3/uL (4.8-10.8)
[2019-06-28 09:02] VITALS: BP 136/64
[2019-06-28 09:25] LABS: ANISOCYTOSIS OCC; BASOPHILS 1 % (0-2); EOSINOPHILS 12 % (0-7); LYMPHOCYTES 22 % (15-50); MONOCYTES 23 % (2-11); NEUTROPHILS 41 % (40-80); PLATELET ESTIMATE NORMAL; POLYCHROMASIA OCC; ROULEAUX OCC
--- NOTE | 2019-06-28 09:53 | EC ---
PATIENT:JAMIE BELL DATE OF SERVICE: 06/24/19 SEX: F MEDICAL RECORD: [id number] DATE OF : 46 LOCATION:D.M2 D.211 AGE OF PATIENT: 68 ADMISSION DATE: 06/24/19 REFERRING PHYSICIAN: INTERPRETING PHYSICIAN: LILY SANTA MD ECHOCARDIOGRAM REPORT ECHO CHARGES 5 ECHO LIMITED Date: 06/24/19 CLINICAL DIAGNOSIS: CP ECHOCARDIOGRAPHIC MEASUREMENTS (adult normal given) AC root (d.<3.7cm) 0 cm LV Septum d (<1.2 cm> 0 cm Valve Excursion 0 cm LV Septum (systole) 0 cm Left Atria (s.<4.0cm> cm LVPW d(<1.2cm) 0 cm RV (d.<2.3cm) 0 cm LVPW (sytole) 0 cm LV diastole(<5.6CM) 0 cm MV E-F(>70mm/sec) 0 cm LV systole 0 cm LVOT Diameter 0 cm MV exc.(>10mm) 0 cm Est.ejection fraction (50-75%) 0 % DOPPLER: LVIT 00 cm/sec A cm/sec E 0 cm/sec LA 0 cm/sec RVSP 19.2 mmHg LVOT 0 cm/sec AOP1/2T m/s Asc. Ao 0 cm/sec RVOT 0 cm/sec RA cm/sec PA 0 cm/sec AV Gradient Peak 0 mmHg AV Mean 0 mmHg AV Area 0 cm MV Gradient Peak 0 mmHg MV Mean 0 mmHg MV Area cm COMMENTS: [employer]ated Truck Driver: Lorelei MARTELL Melter Caster: Radames Santa TAPE# PACS Pericardial Effusion N DATE OF SERVICE: PROCEDURE: Limited echo. FINDINGS: 1. Left ventricular chamber size is within normal limits. Left ventricular systolic function is normal. Overall ejection fraction estimated at 55%. 3. Left atrium, right atrium, and right ventricular chamber sizes are within normal limits. 4. Valvular structures have normal structure and motion. ECHOCARDIOGRAM REPORT [id number] JAMIE BELL 5. Doppler interrogation reveals trace tricuspid regurgitation, no other valvular insufficiency or stenosis. 6. No evidence of pericardial effusion or left ventricular thrombus. TRANSINT:[id number] Voice Confirmation ID: [id number] DOCUMENT ID: [id number] LILY SANTA MD at 0953 CC: [id number] DICTATION DATE: 06/24/19 1855 SOCIAL SCIENCE ANALYST: 06/25/19 0011 ADM IN [facility] [address] [id number]
--- NOTE | 2019-06-28 09:53 | HP ---
PATIENT: JAMIE BELL MEDICAL RECORD: [id number] ACCOUNT: [id number] LOCATION:. D.2115 : 46 ADMISSION DATE: 06/24/19 PCP: PASTORA SHORT DO HISTORY AND PHYSICAL EXAMINATION DATE OF ADMISSION: 06/23/2019. ADMITTING DIAGNOSES: 1. Unstable angina. 2. Coronary artery disease. 3. Previous multivessel percutaneous transluminal coronary angioplasty stent. 4. Hypertension. 5. Renal insufficiency. HISTORY OF PRESENT ILLNESS: Mrs. Bell presents with increasing episodes of chest pain, chest discomfort over the past few weeks. She has a history of coronary artery disease, PTCA stent in the past, last being approximately 4 years ago. She has been told in the past that she has renal insufficiency. Her creatinine is now 4. She has been having episodes of chest pain at rest. She is on propranolol and Imdur. Her EKG has no acute ST-T abnormalities. She continues to have quite severe episodes of chest discomfort. PHYSICAL EXAMINATION: GENERAL APPEARANCE: Well-nourished, well-developed, appears stated age. Level of distress, comfortable. PSYCHIATRIC: Mental status, alert, normal affect. Orientation, oriented to time, place and person. EYES: Lids and conjunctiva, noninjected. No discharge, no pallor. ENT: Lips, teeth, gums, normal dentition. Oropharynx, no cyanosis, no pallor. NECK: Carotid arteries, bilateral normal upstroke, no bruits, no thrills. JUGULAR VEINS: No jugular venous pressure or distention. CERVICAL LYMPH NODES: Nontender, nonenlarged. THYROID: Not enlarged. Nontender. No nodules. LUNGS: Respiratory effort, unlabored. CHEST: Normal curvature. No thoracic deformity. No chest wall tenderness. Percussion, resonant. Auscultation, clear. No wheezes, no rales, no rhonchi. CARDIOVASCULAR: Precordial exam, nondisplaced. No heaves or pericardial thrills. Rate and rhythm, regular. Heart sounds, normal S1, normal S2. No S3, no gallop, no rub. Systolic murmur, not heard. Diastolic murmur, not heard. EXTREMITIES: No cyanosis, no edema. Peripheral pulses, full and equal in all extremities, except as noted. No bruits appreciated. ABDOMEN: Soft, nondistended. Normal aorta. No bruit. Nontender. No masses. Liver, nontender, no hepatomegaly. Spleen, nontender, no splenomegaly. MUSCULOSKELETAL: No joint tenderness. No joint swelling. No erythema. NEUROLOGICAL: Normal gait, normal strength, normal tone. SKIN: Warm and dry. OVERALL IMPRESSION: Unstable angina, class IV symptomatology in a patient with a past history of coronary artery disease, hypertension, hyperlipidemia. At this time, we would like to optimize her medical management due to her BUN and creatinine. Her heart rate is in the 50s. We will not increase her beta blockade. We will add Norvasc 2.5 mg b.i.d. and increase her Imdur to 60 mg b.i.d. Consult renal for any help that they can give us on optimizing her renal status. If she continues to have chest pain, we would proceed with coronary angiography despite the renal status due to the unstable anginal symptomatology. HISTORY AND PHYSICAL [id number] JAMIE BELL TRANSINT:[id number] Voice Confirmation ID: [id number] DOCUMENT ID: [id number] LILY BARR MD at 0953 CC: [id number] DICTATION DATE: 06/24/19 0952 TRANSPORTATION ASSISTANT: 06/24/19 1031 ADM IN [place] [id number] [place] [id number]
--- NOTE | 2019-06-28 09:53 | OP ---
PATIENT NAME: JAMIE BELL MEDICAL RECORD: [id number] :46 LOCATION:D.M2 D.2115 ADMISSION DATE:06/24/19 SURGEON: LILY BARR MD DATE OF OPERATION: 06/27/2019 PROCEDURES: 1. PTCA and stent, RCA. 2. Left heart catheterization. 3. Selective coronary angiography. 4. Left ventriculogram. INDICATION: Unstable angina and non-Q-wave myocardial infarction. DESCRIPTION OF PROCEDURE: After informed consent was obtained with detailed description of risks and benefits as well as alternative therapies, the patient elected to proceed with angiogram and angioplasty. The right femoral area was prepped and draped in normal sterile fashion. The right femoral artery was cannulated via modified Seldinger technique with placement of a 6-Chinese sheath. All catheters were exchanged through this sheath. FINDINGS: Left ventriculogram performed in standard 30-degree BOOTHE view reveals good cardiac wall motion. Ejection fraction is 60%. SELECTIVE CORONARY ANGIOGRAPHY: 1. Left main is with no significant angiographic disease. 2. Left anterior descending has a large diagonal system with 99% stenosis. 3. Left circumflex has 99% stenosis proximally and 99% stenosis in the mid distal vessel. 4. Right coronary has 99% stenosis with in-stent restenosis throughout the mid vessel. PTCA AND STENT OF THE RCA: Stents used were 3.0 x 30 and 3.0 x 30, both Venkat stents. Result was 0% residual stenosis. OVERALL IMPRESSION: Successful PTCA and stent of the RCA, going from 99% initial stenosis to 0% residual. PLAN: PTCA and stent of the LAD and circumflex in a staged fashion due to her renal insufficiency. TRANSINT:[id number] Voice Confirmation ID: [id number] DOCUMENT ID: [id number] LILY BARR MD at 0953 CC: [id number] DICTATION DATE: 06/27/191802 RECORDS COORDINATOR: 06/27/191909 ADM IN [place] [id number] [place] [address]
[2019-06-28 13:07] VITALS: BP 123/47
--- NOTE | 2019-06-28 13:47 | NUR ---
TO FLUXER VIA BED WITH STAFF
--- NOTE | 2019-06-28 13:55 | NUR ---
Nutrition Follow-up: Diet: Renal PO intake: 97% (06/25-06/26) Last BM: 06/23 per chart review Labs reviewed Meds reviewed Rec continue current diet as tolerated. [place] food preferences within diet restrictions. RD following.
--- NOTE | 2019-06-28 15:15 | NUR ---
RECEIVED PT BACK FROM S[facility] BOSS VIA BED VSS DRSG C/D/I TO LT PATRICIA PPPX4 RESP UNLABORED DENIES ANY NEEDS OR DISCOMFORT AT THIS TIME WILL CONTINUE TO MONITOR
--- NOTE | 2019-06-28 15:36 | MORECARE ---
CASE MANAGEMENT DISCHARGE SUMMARY PATIENT: JAMIE BELL UNIT: [id number] ADM DATE: 06/24/19 AGE: 68 : 48 SEX: F ROOM/BED: D.[facility]5 AUTHOR: WILFRID,DOC PHYSICIAN: REFERRING PHYSICIAN: NEELIMA BUTT MD DATE OF SERVICE: 06/28/19 Discharge Plan Patient Name: JAMIE BELL Facility: [facility]:[place] : 1950 Planned Disposition: Inpatient Rehab Anticipated Discharge Date: 06/29/19 Discharge Date: Expected LOS: 5 Initial Reviewer: [id number] Initial Review Date: 06/28/2019 Generated: 06/28/19 4:36 pm DCPIA - Discharge Planning Initial Assessment Updated by CHRIS: Curt Woodruff on 06/28/19 3:32 pm * Is the patient Alert and Oriented? Yes * How many steps to enter\exit or inside your home? NONE * PCP DR. SHORT * Pharmacy [facility] IN [place] * Preadmission Environment Home with Family * ADLs Partial Dependent * Partial ADLs (Assistance needed) Ambulation Bathing Dressing Medication Management Toileting Transfers * Equipment Hospital Bed Oxygen Shower Chair * Other Equipment HOME OXYGEN AT NIGHT AND PRN - [employer], MEDICALE EQUIPMENT PROVIDER PREFERENCE * List name and contact numbers for known caregivers / representatives who currently or will assist patient after discharge: RANDA BELL, DTR, * Verbal permission to speak to the caregivers and representatives has been obtained from the patient. Yes * Community resources currently utilized None * Please name any agencies selected above. NONE * Additional services required to return to the preadmission environment? Yes * Can the patient safely return to the preadmission environment? Yes * Has this patient been hospitalized within the prior 30 days at any hospital? No Coverage Notice Reviewer: [id number] - Curt Woodruff Notice Issued Date-Time: 06/28/2019 13:50 Notice Type: IM Discharge Notice Notice Delivered To: Patient Relationship to Patient: Main Line Assembler Name: Delivery Method: HAND - Hand Delivered Yoanna Days: Prior Verbal Notification: Recipient Understood Notice: Yes Recipient Signature: Yes Med Rec Note Co-signed by Attending: Coverage Notice Comment: Patient Name: JAMIE BELL Page [phone] at 1536 All edits/amendments must be made on the electronic document DICTATION DATE: 06/28/191535 TAB CUTTING MACHINE OPERATOR: SUSY 06/28/191535 RPT#: [id number] DC DATE: STATUS: ADM IN [facility] [address] [place] [address] END OF REPORT
--- NOTE | 2019-06-28 15:45 | MORECARE ---
CASE MANAGEMENT DISCHARGE SUMMARY PATIENT: JAMIE BELL UNIT: [id number] ADM DATE: 06/24/19 AGE: 68 : 48 SEX: F ROOM/BED: D.5395 AUTHOR: WILFRID,DOC PHYSICIAN: REFERRING PHYSICIAN: NEELIMA BUTT MD DATE OF SERVICE: 06/28/19 Discharge Plan Patient Name: JAMIE BELL Facility: [facility]:[place] : 1950 Planned Disposition: Inpatient Rehab Anticipated Discharge Date: 06/29/19 Discharge Date: Expected LOS: 5 Initial Reviewer: [email or web address] Initial Review Date: 06/28/2019 Generated: 06/28/19 4:45 pm Comments DCP- Discharge Planning Updated by [id number]: Curt Woodruff on 06/28/19 2:[address] Patient Name: JAMIE BELL Admission Status: ER Accout number: [id number] Admission Date: 06-24-2019 : 1950 Admission Diagnosis:CHEST PAIN, UNSPECIFIED Attending: NEELIMA BUTT Current LOS: 4 Anticipated DC Date: 06-29-2019 Planned Disposition: Inpatient Rehab Primary Insurance: MEDICARE A & B [facility] INPATIENT REHAB Discharge Planning Comments: CM SPOKE TO GRECIA OF INPATIENT REHAB AT MULTI DISCIPLINARY TREATMENT TEAM MEETING, INPATIENT REHAB WILL ACCEPT PT WHEN MEDICALLY STABLE IF PT NEEDS AND WANTS INPATIENT REHAB SERVICES. CM MET WITH PT AND DAUGHTER IN ROOM TO DISCUSS DISCHARGE PLANNING AND NEEDS. JAMIE BELL provided verbal consent to discuss current and ongoing needs with/in the presence of: DAUGHTER RANDA. PT REPORTS LIVING AT HOME DEPENDENTLY WITH HER DAUGHTER, PT REPORTS NEEDING ASSITANCE WITH EVERYTHING OTHER THAN EATING AND SOMETIMES WITH EATING ALSO. . PT HAS HOSPITAL BED, SHOWER CHAIR, HOME OXYGEN THAT PT USES AT NIGHT AND ELECTRIC WHEELCHAIR. PT'S MEDICAL EQUIPMENT PROVIDER IS [employer]. PT HAS [facility] FOR PHYSICAL THERAPY. CM DISCUSSED AVAILABILITY OF HOME HEALTH, REHAB SERVICES AND MEDICAL EQUIPMENT. PT AND FAMILY WANT PT TO HAVE REHAB AT [facility] PRIOR TO RETURNING HOME WITH [facility], IMPORTANT MESSAGE FROM MEDICARE PROVIDED AND EXPLAINED. CM NOTIFIED [facility] OF INPATIENT REHAB OF PT AND FAMILY'S DESIRE FOR INPATIENT REHAB AT DISCHARGE. [facility] INPATIENT REHAB TO ACCEPT PT WHEN MEDICALLY STABLE FOR DISCHARGE TO REHAB. NOTIFY INPATIENT REHAB WHEN READY TO DC, REHAB WILL THEN CONTACT MED 2 NURSE WITH ROOM NUMBER WHEN READY TO ACCEPT PT AND NURSE REPORT. Truck Washer: Curt Woodruff DCPIA - Discharge Planning Initial Assessment Updated by [id number]: Curt Woodruff on 06/28/19 3:32 pm * Is the patient Alert and Oriented? Yes * How many steps to enter\exit or inside your home? NONE * PCP DR. SHORT * Pharmacy [facility] IN [place] * Preadmission Environment Home with Family * ADLs Partial Dependent * Partial ADLs (Assistance needed) Ambulation Bathing Dressing Medication Management Toileting Transfers * Equipment Hospital Bed Oxygen Shower Chair * Other Equipment HOME OXYGEN AT NIGHT AND PRN - [employer], MEDICALE EQUIPMENT PROVIDER PREFERENCE * List name and contact numbers for known caregivers / representatives who currently or will assist patient after discharge: RANDA BELL, DTR, * Verbal permission to speak to the caregivers and representatives has been obtained from the patient. Yes * Community resources currently utilized None * Please name any agencies selected above. NONE * Additional services required to return to the preadmission environment? Yes * Can the patient safely return to the preadmission environment? Yes * Has this patient been hospitalized within the prior 30 days at any hospital? No Coverage Notice Reviewer: [id number] - Curt Woodruff Notice Issued Date-Time: 06/28/2019 13:50 Notice Type: IM Discharge Notice Notice Delivered To: Patient Relationship to Patient: Turbine Subassembler Name: Delivery Method: HAND - Hand Delivered Yoanna Days: Prior Verbal Notification: Recipient Understood Notice: Yes Recipient Signature: Yes Med Rec Note Co-signed by Attending: Coverage Notice Comment: Last DP export: 06/28/19 2:36 pm Patient Name: JAMIE BELL Page [phone] at 1540 All edits/amendments must be made on the electronic document DICTATION DATE: 06/28/19 1544 MANAGER FAST FOOD: SUSY 06/28/19 1544 RPT#: [id number] DC DATE: STATUS: ADM IN [facility] [address] [place] [address] END OF REPORT
[2019-06-29 01:05] VITALS: BP 140/77
[2019-06-29 05:36] VITALS: BP 140/60
[2019-06-29 06:34] LABS: BASOPHILS 0.5 % (0-2); EOSINOPHILS 8.7 % (0-7); HEMATOCRIT 31.4 % (36.0-48.0); HEMOGLOBIN 9.7 g/dL (12-16); IMMATURE GRANULOCYTES 0.4 % (0-5); LYMPHOCYTES 26.7 % (15-50); MCH 26.1 pg (26.0-34.0); MCHC 30.9 g/dL (31.0-37.0); MCV 84.6 fL (80.0-100.0); MEAN PLATELET VOLUME 9.4 fL (7.4-10.4); MONOCYTES 15.2 % (2-11); NEUTROPHILS 48.5 % (40-80); PLATELET COUNT 250 10x3/uL (130-400); RBC 3.71 10x6/uL (4.00-5.40); RDW 15.5 % (11.5-14.5)
[2019-06-29 06:37] LABS: WBC 5.5 10x3/uL (4.8-10.8)
[2019-06-29 06:56] LABS: ANION GAP 12.7 mmol/L (8-16); CALCIUM 8.6 mg/dL (8.5-10.1); CARBON DIOXIDE 25.7 mmol/L (21.0-32.0); CREATININE - SERUM 3.9 mg/dL (0.6-1.3); MAGNESIUM - SERUM 1.4 mg/dL (1.8-2.4); PHOSPHOROUS 5.1 mg/dL (2.5-4.9); POTASSIUM - SERUM 4.4 mmol/L (3.5-5.1)
[2019-06-29 08:00] VITALS: BP 162/65
--- NOTE | 2019-06-29 08:30 | NUR ---
IV SL. LEON CATH DCD WOTH 300CC URINE OP AND 10CC BULB. WILL MONITOR VOID.
--- NOTE | 2019-06-29 09:00 | NUR ---
UP TO CHAIR WITH PT ASSIST. WILL CONT. PLAN OF CARE.
--- NOTE | 2019-06-29 11:12 | NUR ---
Rehab Prescreening Consult recieved and the chart has been reviewed. She is a good ARU candidate when medically stable. She will be accepted when the physicians feel she is medicall stable for discharge to rehab. Discussed with the CM Tom. Mell Cruz RN Clinical Liaison, rehab
[2019-06-29 11:37] VITALS: BP 147/64
--- NOTE | 2019-06-29 14:56 | MORECARE ---
CASE MANAGEMENT DISCHARGE SUMMARY PATIENT: JAMIE BELL UNIT: [id number] ADM DATE: 06/24/19 AGE: 68 : 48 SEX: F ROOM/BED: D.9665 AUTHOR: LINDA YUEN PHYSICIAN: REFERRING PHYSICIAN: NEELIMA BUTT MD DATE OF SERVICE: 06/29/19 Discharge Plan Patient Name: JAMIE BELL Facility: [facility]:[place] : 1950 Planned Disposition: Inpatient Rehab Anticipated Discharge Date: 06/29/19 Discharge Date: Expected LOS: 5 Initial Reviewer: [id number] Initial Review Date: 06/28/2019 Generated: 06/29/19 3:56 pm Comments DCP- Discharge Planning Updated by [email or web address]: Curt Woodruff on 06/29/19 1:[address] Patient Name: JAMIE BELL Encounter No: [id number] : 1950 Primary Insurance: MEDICARE A & B Anticipated DC Date: 06-29-2019 Planned Disposition: Inpatient Rehab External Planned Provider: [facility] INPATIENT REHAB DCP follow-up note: CM SPOKE TO DOM WINN WHO ADVISED THAT PT WILL DISCHARGE TODAY TO REHAB. CM SPOKE TO TEMO OF INPATIENT REHAB, THEY PLAN TO ACCEPT PT TODAY FOR REHAB. PT NOTIFIED, IN AGREEMENT WITH DISCHARGE TO INPATIENT REHAB. [facility] INPATIENT REHAB TO CONTACT MED 2 NURSE WITH ROOM NUMBER WHEN READY TO ACCEPT PT AND NURSE REPORT. MARIBELL Sánchez DCP- Discharge Planning Updated by [id number]: Curt Woodruff on 06/28/19 2:[address] Patient Name: JAMIE BELL Admission Status: ER Accout number: [id number] Admission Date: 06-24-2019 : 1950 Admission Diagnosis:CHEST PAIN, UNSPECIFIED Attending: NEELIMA BUTT Current LOS: 4 Anticipated DC Date: 06-29-2019 Planned Disposition: Inpatient Rehab Primary Insurance: MEDICARE A & B [facility] INPATIENT REHAB Discharge Planning Comments: CM SPOKE TO GRECIA OF INPATIENT REHAB AT MULTI DISCIPLINARY TREATMENT TEAM MEETING, INPATIENT REHAB WILL ACCEPT PT WHEN MEDICALLY STABLE IF PT NEEDS AND WANTS INPATIENT REHAB SERVICES. CM MET WITH PT AND DAUGHTER IN ROOM TO DISCUSS DISCHARGE PLANNING AND NEEDS. JAMIE BELL provided verbal consent to discuss current and ongoing needs with/in the presence of: DAUGHTER RANDA. PT REPORTS LIVING AT HOME DEPENDENTLY WITH HER DAUGHTER, PT REPORTS NEEDING ASSITANCE WITH EVERYTHING OTHER THAN EATING AND SOMETIMES WITH EATING ALSO. . PT HAS HOSPITAL BED, SHOWER CHAIR, HOME OXYGEN THAT PT USES AT NIGHT AND ELECTRIC WHEELCHAIR. PT'S MEDICAL EQUIPMENT PROVIDER IS [employer]. PT HAS [facility] FOR PHYSICAL THERAPY. CM DISCUSSED AVAILABILITY OF HOME HEALTH, REHAB SERVICES AND MEDICAL EQUIPMENT. PT AND FAMILY WANT PT TO HAVE REHAB AT [facility] PRIOR TO RETURNING HOME WITH [employer], IMPORTANT MESSAGE FROM MEDICARE PROVIDED AND EXPLAINED. CM NOTIFIED [facility]IA OF INPATIENT REHAB OF PT AND FAMILY'S DESIRE FOR INPATIENT REHAB AT DISCHARGE. [facility] INPATIENT REHAB TO ACCEPT PT WHEN MEDICALLY STABLE FOR DISCHARGE TO REHAB. NOTIFY INPATIENT REHAB WHEN READY TO DC, REHAB WILL THEN CONTACT MED 2 NURSE WITH ROOM NUMBER WHEN READY TO ACCEPT PT AND NURSE REPORT. Indirect Sales Exec: Curt Woodruff DCPIA - Discharge Planning Initial Assessment Updated by [id number]: Curt Woodruff on 06/28/19 3:32 pm * Is the patient Alert and Oriented? Yes * How many steps to enter\exit or inside your home? NONE * PCP DR. SHORT * Pharmacy [facility] IN [place] * Preadmission Environment Home with Family * ADLs Partial Dependent * Partial ADLs (Assistance needed) Ambulation Bathing Dressing Medication Management Toileting Transfers * Equipment Hospital Bed Oxygen Shower Chair * Other Equipment HOME OXYGEN AT NIGHT AND PRN - [employer], MEDICALE EQUIPMENT PROVIDER PREFERENCE * List name and contact numbers for known caregivers / representatives who currently or will assist patient after discharge: RANDA BELL, DTR, * Verbal permission to speak to the caregivers and representatives has been obtained from the patient. Yes * Community resources currently utilized None * Please name any agencies selected above. NONE * Additional services required to return to the preadmission environment? Yes * Can the patient safely return to the preadmission environment? Yes * Has this patient been hospitalized within the prior 30 days at any hospital? No Coverage Notice Reviewer: [id number] - Curt Woodruff Notice Issued Date-Time: 06/28/2019 13:50 Notice Type: IM Discharge Notice Notice Delivered To: Patient Relationship to Patient: Extrusion Process Operator Name: Delivery Method: HAND - Hand Delivered Yoanna Days: Prior Verbal Notification: Recipient Understood Notice: Yes Recipient Signature: Yes Med Rec Note Co-signed by Attending: Coverage Notice Comment: Last DP export: 06/28/19 2:45 pm Patient Name: JAMIE BELL Page [phone] at 1456 All edits/amendments must be made on the electronic document DICTATION DATE: 06/29/191455 TELEPHONE STATION REPAIRER: SUSY 06/29/196 RPT#: [id number] DC DATE: STATUS: ADM IN [facility] [address] [place] [address] END OF REPORT
[2019-06-29] MEDS ORDERED: PLAVIX75 MG PO (15:13)
[2019-06-29] MEDS ORDERED: ISOSORBIDE MONO60 M1 PO (15:14)
[2019-06-29] MEDS ORDERED: NORVASC2.5 MG PO (15:14)
[2019-06-29] MEDS ORDERED: ASPIRIN81 MG PO (15:14)
--- NOTE | 2019-06-29 16:41 | NUR ---
REPORT CALLED TO ADRIANA DURAN IN REHAB.
--- NOTE | 2019-06-29 17:02 | NUR ---
TELEMETRY DCD. ESCORTED TO REHAB BY W/C.
[2019-06-29] MEDS ORDERED: OXYBUTYNIN CHLOR5 MG PO (19:38)
[2019-06-29] MEDS ORDERED: PROTONIX40 MG PO (19:39)
[2019-06-29] MEDS ORDERED: GAS-X125 M1 PO (19:46)
[2019-06-29] MEDS ORDERED: ZOFRAN4 MG PO (19:47)
[2019-06-29] MEDS ORDERED: ACETAMINOPHEN325 MG PO (19:47)
[2019-06-29] MEDS ORDERED: VIBRAMYCIN50 MG PO (19:50)
[2019-06-29] MEDS ORDERED: FLORAJEN3 CAPS460 MG PO (19:51)
== END 2019-06-29 17:02 | DRG 247 ==
LOC: D.ER 18:30 → D.M2 20:44 → OBSVTIME 20:44 → D.M2 06-24 13:34
PROVIDERS: Family Medicine; Internal Medicine Interventional Cardiology; Internal Medicine Nephrology; ADMIT Internal Medicine Nephrology; ATTEND Internal Medicine Nephrology
PROC: 4A023N7 Measurement of Cardiac Sampling and Pressure, Left Heart, Percutaneous Approach (ICD-10-PCS; 2019-06-27)
PROC: B2111ZZ Fluoroscopy of Multiple Coronary Arteries using Low Osmolar Contrast (ICD-10-PCS; 2019-06-27)
PROC: B2151ZZ Fluoroscopy of Left Heart using Low Osmolar Contrast (ICD-10-PCS; 2019-06-27)
PROC: 027035Z Dilation of Coronary Artery, One Artery with Two Drug-eluting Intraluminal Devices, Percutaneous Approach (ICD-10-PCS; principal; 2019-06-27 16:52)
PROC: 027034Z Dilation of Coronary Artery, One Artery with Drug-eluting Intraluminal Device, Percutaneous Approach (ICD-10-PCS; 2019-06-28)
DX: I21.4 Non-ST elevation (NSTEMI) myocardial infarction (principal); N39.0 Urinary tract infection, site not specified; N18.5 Chronic kidney disease, stage 5; N17.9 Acute kidney failure, unspecified; I13.2 Hypertensive heart and chronic kidney disease with heart failure and with stage 5 chronic kidney disease, or end stage renal disease; I25.110 Atherosclerotic heart disease of native coronary artery with unstable angina pectoris; B95.62 Methicillin resistant Staphylococcus aureus infection as the cause of diseases classified elsewhere; E78.5 Hyperlipidemia, unspecified; D63.1 Anemia in chronic kidney disease; I50.9 Heart failure, unspecified; J44.9 Chronic obstructive pulmonary disease, unspecified; Z86.73 Personal history of transient ischemic attack (TIA), and cerebral infarction without residual deficits

== ENCOUNTER 2019-06-29 16:41 | Inpatient (IN) | payer MEDICARE ==
[~2019-06-29] VITALS: Ht 160 cm; Wt 112.5 kg
[~2019-06-29 16:41] MED LIST changes: +ASPIRIN81 MG PO; +HEART PILL; +ISOSORBIDE MONO30 M1 PO; +ISOSORBIDE MONO60 M1 PO; +MORPHINE; +NORVASC2.5 MG PO; +PLAVIX75 MG PO
--- NOTE | 2019-06-29 17:00 | NUR ---
RECIEVED PER WC FROM ACUTE CARE TO ROOM 1110.ORIENTED TO ROOM AND SURROUNDINGS.CL IN REACH.
[2019-06-29] MEDS ORDERED: OXYBUTYNIN CHLOR5 MG PO (19:38)
[2019-06-29] MEDS ORDERED: PROTONIX40 MG PO (19:39)
[2019-06-29 19:40] VITALS: BP 118/63
[2019-06-29] MEDS ORDERED: GAS-X125 M1 PO (19:46)
[2019-06-29] MEDS ORDERED: ZOFRAN4 MG PO (19:47)
[2019-06-29] MEDS ORDERED: ACETAMINOPHEN325 MG PO (19:47)
[2019-06-29] MEDS ORDERED: VIBRAMYCIN50 MG PO (19:50)
[2019-06-29] MEDS ORDERED: FLORAJEN3 CAPS460 MG PO (19:51)
--- NOTE | 2019-06-29 20:00 | NUR ---
PATIENT RECEIVED LAYING IN BED WATCHING TV. VITAL SIGNS & ASSESSMENT DONE. NO C/O PAIN OR DISTRESS. BED LOW. CALL LIGHT WITHIN REACH. WILL CONTINUE TO MONITOR.
[2019-06-29 23:07] VITALS: BP 118/63; BMI 44.0
--- NOTE | 2019-06-30 03:41 | NUR ---
PATIENT AWAKE ON TELEPHONE. NO C/O PAIN OR DISTRESS. CALL LIGHT WITHIN REACH. WILL CONTINUE TO MONITOR.
[2019-06-30 06:31] LABS: CALCIUM 9.1 mg/dL (8.5-10.1); CARBON DIOXIDE 25.9 mmol/L (21.0-32.0); POTASSIUM - SERUM 3.9 mmol/L (3.5-5.1)
[2019-06-30 06:32] LABS: BASOPHILS 0.5 % (0-2); EOSINOPHILS 7.8 % (0-7); HEMATOCRIT 30.1 % (36.0-48.0); HEMOGLOBIN 9.4 g/dL (12-16); IMMATURE GRANULOCYTES 0.4 % (0-5); LYMPHOCYTES 29.9 % (15-50); MCH 26.2 pg (26.0-34.0); MCHC 31.2 g/dL (31.0-37.0); MCV 83.8 fL (80.0-100.0); MEAN PLATELET VOLUME 9.8 fL (7.4-10.4); MONOCYTES 11.1 % (2-11); NEUTROPHILS 50.3 % (40-80); PLATELET COUNT 257 10x3/uL (130-400); RBC 3.59 10x6/uL (4.00-5.40); RDW 15.2 % (11.5-14.5); WBC 5.5 10x3/uL (4.8-10.8)
[2019-06-30 07:25] VITALS: BP 165/59
--- NOTE | 2019-06-30 08:15 | NUR ---
PT RESTING IN BED WITH EYES OPEN CALL LIGHT IN REACH WILL MONITER
--- NOTE | 2019-06-30 08:15 | NUR ---
PT RESTING IN BED WITH EYES OPEN CALL LIGHT IN REACH NO PROBLEMS WILL MONITER
[2019-06-30 10:35] VITALS: Ht 160 cm; Wt 112.5 kg
--- NOTE | 2019-06-30 16:47 | NUR ---
I have reviewed this patient and I concur with the Shift Assessment completed by the Licensed Practical Nurse today this shift.
--- NOTE | 2019-06-30 19:35 | NUR ---
PT RESTING QUIETLY. CL IN REACH. NO DISTRESS NOTED. WAKES WITH VERBAL STIMULI. RESP EVEN AND UNLABORED. LUNGS CLEAR. BOWEL ACTIVE X4. A/O X4. ON CONTACT ISOLATION FOR MRSA IN URINE. DENIES NEEDS OR PAIN AT THIS TIME. WILL CONTINUE TO MONITOR.
[2019-06-30 20:24] VITALS: BP 115/48
--- NOTE | 2019-06-30 23:12 | NUR ---
PT RESTING QUIETLY. CL IN REACH. NO DISTRESS NOTED. CPOC
--- NOTE | 2019-07-01 00:29 | NUR ---
I have reviewed this patient and I concur with the Shift Assessment completed by the Licensed Practical Nurse today this shift.
--- NOTE | 2019-07-01 02:53 | NUR ---
checked on pt and pt was wet. changed brief and pads. prasanna care provided. pt denies further needs. cl in reach. cpoc
--- NOTE | 2019-07-01 06:14 | NUR ---
REMOVED IV FROM LEFT FOREARM. CATH INTACT. TOLERATED WELL. DENIES FURTHER NEEDS. NO BLEEDING NOTED. BANDAID APPLIED
[2019-07-01 06:37] LABS: BASOPHILS 0.6 % (0-2); EOSINOPHILS 8.1 % (0-7); HEMATOCRIT 31.3 % (36.0-48.0); HEMOGLOBIN 9.7 g/dL (12-16); IMMATURE GRANULOCYTES 0.4 % (0-5); LYMPHOCYTES 29.5 % (15-50); MCH 26.4 pg (26.0-34.0); MCV 85.3 fL (80.0-100.0); MONOCYTES 14.1 % (2-11); NEUTROPHILS 47.3 % (40-80); PLATELET COUNT 244 10x3/uL (130-400); RBC 3.67 10x6/uL (4.00-5.40); RDW 15.5 % (11.5-14.5)
[2019-07-01 07:04] LABS: ANION GAP 13.9 mmol/L (8-16); CALCIUM 9.5 mg/dL (8.5-10.1); CARBON DIOXIDE 26.3 mmol/L (21.0-32.0); CREATININE - SERUM 4.1 mg/dL (0.6-1.3); POTASSIUM - SERUM 4.2 mmol/L (3.5-5.1)
--- NOTE | 2019-07-01 07:30 | NUR ---
LAYING IN BED QUIETLY. NO S/S DISTRESS. CALL LIGHT IN REACH. SIDE RAILS UP X2.
[2019-07-01 07:51] VITALS: BP 162/62
--- NOTE | 2019-07-01 11:50 | NUR ---
SITTING UP IN WC IN ROOM. STATES SHE IS WEAK BUT DOING OK. DENIES NEEDS. CALL LIGHT IN REACH
--- NOTE | 2019-07-01 15:52 | NUR ---
PATIENT ADMITTED TO REHAB FROM ACUTE FLOOR. DR. SHORT IS HER PCP. DME AT HOME IS O2, HOSPITAL BED AND SHOWER CHAIR. SHE IS A CLIENT OF [employer] [facility] AND THEY WILL RESUME CARE WHEN PATIENT IS DISCHARGE FROM FACILITY. WILL CONTINUE TO FOLLOW WITH PATIENT.
--- NOTE | 2019-07-01 16:56 | NUR ---
LAYING DOWN IN BED DOING A PUZZEL. IS PLEASANT AND COOPERATIVE. DENIES NEEDS. CALL LIGHT IN REACH
--- NOTE | 2019-07-01 18:03 | NUR ---
SITTING UP IN WC IN ROOM PLAYING ON HER PHONE. DENIES NEEDS. CALL LIGHT IN REACH
[2019-07-01 19:12] VITALS: BP 136/43
--- NOTE | 2019-07-01 19:16 | NUR ---
AWAKE AND ALERT. RESTING IN BED WITH RESPIRAITONS UNLABORED. ORIENTED X 4. REDNESS NOTED TO BUTTOCKS. REMAINS IN ISOLATION RELATED TO MRSA IN URINE. NO ACUTE DISTRESS NOTED. CALL LIGHT IN REACH.
--- NOTE | 2019-07-02 00:05 | NUR ---
AT 2335 PATIENT C/O CHEST PAIN, STATING A PAIN SCORE OF 9/10 WITH PAIN BEING CONSTANT AND MIDSTERNAL, NOT RADIATING ANYWHERE. O2/2L PLACED ON PER NASAL CANNULA. PT C/O NO RELIEF FROM O2. SIMETHICONE GIVEN PO AT 2340 WITH NO RELIEF PER PATIENT. EKG ORDERED AND DONE, SHOWING BRADYCARDIA AT 55 WITH FIRST DEGREE AV BLOCK. NITROGLYCERIN 0.4MG GIVEN AT 0000. CARDIAC ENZYMES ORDERED. TELEMETRY ORDERED. WILL MONITOR CLOSELY.
--- NOTE | 2019-07-02 00:28 | NUR ---
PATIENT STATES SHE IS FEELING RELIEF NOW AFTER SECOND DOSE OF NITRO SL. O2/2L ON PER NASAL CANNULA. FIRST SET OF CARDIAC ENZYMES HAVE BEEN DRAWN AND RESULTS ARE PENDING. TREE TOPPER PLACED AND TRACING SINUS PHYLLIS 49. PATIENT IS ALERT WITH RESPIRARTIONS UNLABORED. CALM AND COOPERATIVE WITH CARE. SKIN WARM AND DRY. COLOR PINK. WILL CONTINUE TO MONITOR CLOSELY.
[2019-07-02 00:55] LABS: CKMB 1.7 U/L (0.0-3.6); CREATINE KINASE 65 UL (21-215)
[2019-07-02 00:57] LABS: TROPONIN-I 0.127 ng/mL (0.000-0.060)
--- NOTE | 2019-07-02 01:14 | NUR ---
RECIEVED CARDIAC ENZYME RESULTS WITH NOTED TROPONIN OF 0.[address]ZAN PAGED AND AWAITING HIS CALL BACK. PATIENT IS RESTING QUIETLY IN BED. NO ACUTE DISTRESS NOTED.
--- NOTE | 2019-07-02 01:28 | NUR ---
DR ALMAZAN CELL NUMBER CALLED AND MESSAGE LEFT ON VOICEMAIL. PATIENT AWAKE AND ALERT RESTING IN BED, USING HER CELL PHONE. STATES SHE IS PAIN FREE NOW AND IS DOING OKAY. O2/2L ON PER NASAL CANNULA. NO ACUTE DISTRESS NOTED. CALL LIGHT IN REACH.
--- NOTE | 2019-07-02 01:40 | NUR ---
CALLED ANSWERING SERVICE AGAIN FOR [facility] AND WAS TOLD DR ALMAZAN WAS NOT BIZTALK ARCHITECT, I WAS PREVIOUSLY TOLD, THAT IT WAS XUAN NEUMANN. I ASK ANSWERING SERVICE TO PAGE HER.
--- NOTE | 2019-07-02 01:45 | NUR ---
DR ALMAZAN RETURNED MY CALL AND WAS MADE AWARE OF PATIENTS TROPONIN LEVEL AND CONDITION. NO NEW ORDERS AT THIS TIME.
[2019-07-02 07:08] LABS: CKMB 1.2 U/L (0.0-3.6); CREATINE KINASE 55 UL (21-215)
[2019-07-02 07:09] LABS: TROPONIN-I 0.118 ng/mL (0.000-0.060)
[2019-07-02 08:00] VITALS: BP 103/64
--- NOTE | 2019-07-02 08:00 | NUR ---
SHIFT ASSMT COMPLETED.STATES NOT A GOOD NIGHT.CE'S WNL.DENIES ANY CHEST PAIN THIS AM.STATES NOT HUNGERY FOR BRAKFAST.
--- NOTE | 2019-07-02 12:00 | NUR ---
EATING LUNCH.DENIES NEEDS.
[2019-07-02 13:39] LABS: CKMB 1.5 U/L (0.0-3.6); CREATINE KINASE 60 UL (21-215)
[2019-07-02 13:40] LABS: TROPONIN-I 0.102 ng/mL (0.000-0.060)
--- NOTE | 2019-07-02 16:00 | NUR ---
UP OOB AND SHOWERED.CHRIS WELL.PUT GOWN ON AND GOT BACK IN BED.CL IN REACH.
[2019-07-02 19:09] VITALS: BP 131/44
--- NOTE | 2019-07-02 19:13 | NUR ---
AWAKE AND ALERT. RESTING IN BED WITH RESPIRATIONS UNLABORED. NO DISTRESS NOTED. O2/2L ON PER NASAL CANNULA. LINING STUFFER IN PLACE SHOWING SINUS BRADYCARDIA WITH 1 DEG[address] AV BLOCK. STATES SHE HAS NOT HAD ANY CHEST PAIN TODAY. NO ACUTE DISTRESS NOTED. CALL LIGHT IN REACH.
--- NOTE | 2019-07-03 00:06 | NUR ---
RESTING IN BED WITH RESPIRATIONS UNLABORED. NO DISTRESS NOTED. CALL LIGHT IN REACH.
--- NOTE | 2019-07-03 05:36 | NUR ---
QUIET HOURS. NO ACUTE CHANGES IN CONDITION THIS SHIFT. REMAINS IN CONTACT ISOLATION. RESTING IN BED WITH RESPIRAITONS UNLABORED. NO DISTRESS NOTED. CALL LIGHT IN REACH.
[2019-07-03 08:00] VITALS: BP 151/60
--- NOTE | 2019-07-03 08:00 | NUR ---
SHIFT ASSMT COMPLETED.VSS.BREAKFAST GIVEN.CL IN REACH.STATES DID NOT SLEEP GOOD LAST NIGHT AND NOT FEELING GOOD TODAY WHEN ASKED WHAT IS GOING ON STATED SHE WAS JUST REALLY TIRED FEELING.
--- NOTE | 2019-07-03 12:00 | NUR ---
SITTING UP EATING LUNCH.
--- NOTE | 2019-07-03 16:00 | NUR ---
VOIDING WELL TODAY BUT NO BM.RESTARTED ON SENNOSIDES.WILL CONTINUE TO MONITOR.
[2019-07-03 19:11] VITALS: BP 124/37
--- NOTE | 2019-07-03 19:13 | NUR ---
AWAKE AND ALERT. RESTING IN BED WITH RESPIRATIONS UNLABORED. NO DISTRESS NOTED. REMAINS IN CONTACT ISOLATION. SINUS BRADYCARDIA ON TELEMETRY. CALL LIGHT IN REACH.
--- NOTE | 2019-07-04 01:08 | NUR ---
RESTING IN BED WITH RESPIRAITONS UNLABORED. INCONTINENCE CARE GIVEN. ADJUSTED IN BED FOR COMFORT. NO NEEDS VOICED. NO DISTRESS NOTED.
--- NOTE | 2019-07-04 05:15 | NUR ---
QUIET HOURS. RESTING IN BED WITH RESPIRATIONS UNLABORED. NO ACUTE CHANGES IN CONDITION THIS SHIFT. NO DISTRESS NOTED. CALL LIGHT IN REACH.
[2019-07-04 06:19] LABS: BASOPHILS 0.9 % (0-2); EOSINOPHILS 5.8 % (0-7); HEMATOCRIT 30.9 % (36.0-48.0); HEMOGLOBIN 9.6 g/dL (12-16); IMMATURE GRANULOCYTES 0.2 % (0-5); LYMPHOCYTES 28.7 % (15-50); MCH 26.2 pg (26.0-34.0); MCHC 31.1 g/dL (31.0-37.0); MCV 84.4 fL (80.0-100.0); MEAN PLATELET VOLUME 9.5 fL (7.4-10.4); MONOCYTES 12.1 % (2-11); NEUTROPHILS 52.3 % (40-80); PLATELET COUNT 233 10x3/uL (130-400); RBC 3.66 10x6/uL (4.00-5.40); RDW 15.1 % (11.5-14.5); WBC 5.3 10x3/uL (4.8-10.8)
[2019-07-04 06:32] LABS: ANION GAP 11.1 mmol/L (8-16); CALCIUM 9.6 mg/dL (8.5-10.1); CARBON DIOXIDE 27.2 mmol/L (21.0-32.0); CREATININE - SERUM 4.8 mg/dL (0.6-1.3); POTASSIUM - SERUM 4.3 mmol/L (3.5-5.1)
[2019-07-04 07:50] VITALS: BP 131/71
--- NOTE | 2019-07-04 12:41 | NUR ---
Nutrition Follow-up: Diet: Renal diet PO intake: ~70%, Reports appetite "okay" and no BM x 12 days. No BM noted since rehab admit Wt: 248# (06/30/19) Labs reviewed Bowel regimen meds noted RD Following
--- NOTE | 2019-07-04 13:09 | NUR ---
THE PATIENT WAS LYING IN BED AND WATCHING TELEVISION WHEN STAFF ENTERED HER ROOM. BED IS IN THE LOW POSITION WITH SIDERAILS X2 AND CALL LIGHT IS WITHIN REACH. THE PATIENT WAS EDUCATED ON THE USE OF A CALL LIGHT AND DEMOSNTRATES UNDERSTANDING VIA TEACHABACK METHOD. THE PATIENT APPEARS COMFORTABLE WITH NO QUESTIONS OR COCNERNS AT THIS TIME.
--- NOTE | 2019-07-04 21:30 | NUR ---
PT IN BED LOWEST POSITION, A&O, FLUIDS AND CALL LIGHT WITHIN REACH,CONTACT PRECAUTIONS MRSA URINE, NO IMMEDIATE NEEDS NOTED
[2019-07-05 01:24] VITALS: BP 128/43
--- NOTE | 2019-07-05 02:32 | NUR ---
PT IN BED LOWEST POSITION, EYES CLOSED AROUSES EASILY TO VOICE, RESPIRATIONS EVEN AND UNLABORED, NO NEEDS NOTED AT THIS TIME, FLUIDS AND CALL LIGHT WITHIN REACH
--- NOTE | 2019-07-05 07:30 | NUR ---
PT RESTING IN BED WITH EYES OPEN CALL LIGHT IN REACH NO PROBELMS WILL MONITER
[2019-07-05 07:46] LABS: BASOPHILS 0.5 % (0-2); EOSINOPHILS 5.2 % (0-7); HEMATOCRIT 29.5 % (36.0-48.0); HEMOGLOBIN 9.2 g/dL (12-16); IMMATURE GRANULOCYTES 0.3 % (0-5); LYMPHOCYTES 27.5 % (15-50); MCH 26.4 pg (26.0-34.0); MCHC 31.2 g/dL (31.0-37.0); MCV 84.5 fL (80.0-100.0); MEAN PLATELET VOLUME 9.9 fL (7.4-10.4); MONOCYTES 9.9 % (2-11); NEUTROPHILS 56.6 % (40-80); PLATELET COUNT 253 10x3/uL (130-400); RBC 3.49 10x6/uL (4.00-5.40); RDW 15.2 % (11.5-14.5); WBC 5.9 10x3/uL (4.8-10.8)
[2019-07-05 08:38] LABS: ALBUMIN 2.3 g/dL (3.4-5.0); ANION GAP 11.3 mmol/L (8-16); BILIRUBIN - TOTAL 0.34 mg/dL (0.2-1.3); CALCIUM 9.2 mg/dL (8.5-10.1); CARBON DIOXIDE 26.7 mmol/L (21.0-32.0); CREATININE - SERUM 4.6 mg/dL (0.6-1.3)
[2019-07-05 19:53] VITALS: BP 136/49
--- NOTE | 2019-07-05 20:06 | NUR ---
AWAKE AND ALERT RESTING IN BED WITH RESPIRAITONS UNLABORED. REMIANS IN CONTACT ISOLATION RELATED TO MRSA IN URINE. NO ACUTE DISTRESS NOTED. CALL LIGHT IN REACH.
--- NOTE | 2019-07-06 06:03 | NUR ---
QUIET HOURS. RESTING IN BED WITH RESPIRATIONS UNLABORE. NO ACUTE CHANGES IN CONDITION THIS SHIFT. NO DISTRESS NOTED. REMAINS IN CONTACT ISOLATION. CALL LIGHT IN REACH.
[2019-07-06 07:39] LABS: BASOPHILS 0.5 % (0-2); EOSINOPHILS 4.8 % (0-7); HEMATOCRIT 29.9 % (36.0-48.0); HEMOGLOBIN 9.2 g/dL (12-16); IMMATURE GRANULOCYTES 0.5 % (0-5); LYMPHOCYTES 23.6 % (15-50); MCH 26.3 pg (26.0-34.0); MCHC 30.8 g/dL (31.0-37.0); MCV 85.4 fL (80.0-100.0); MONOCYTES 12.5 % (2-11); NEUTROPHILS 58.1 % (40-80); PLATELET COUNT 239 10x3/uL (130-400); RDW 15.3 % (11.5-14.5)
[2019-07-06 07:42] VITALS: BP 154/58
[2019-07-06 07:45] LABS: ANION GAP 15.3 mmol/L (8-16); CALCIUM 9.7 mg/dL (8.5-10.1); CARBON DIOXIDE 25.1 mmol/L (21.0-32.0); CREATININE - SERUM 4.9 mg/dL (0.6-1.3); POTASSIUM - SERUM 4.4 mmol/L (3.5-5.1)
--- NOTE | 2019-07-06 08:00 | NUR ---
SHIFT ASSMT COMPLETED.DENIES NEEDS.CL IN REACH.BREAKFAST GIVEN.
--- NOTE | 2019-07-06 15:04 | RHP ---
PATIENT: JAMIE BELL MEDICAL RECORD: [id number] ACCOUNT: [id number] [id number] AD[facility] DATE: 06/29/19 REHABILITATION HISTORY AND PHYSICAL EXAMINATION POST ADMISSION PHYSICIAN EXAMINATION DATE OF ADMISSION: 06/29/2019 ADMITTING DIAGNOSIS: Non-Q-wave myocardial infarction. HISTORY OF PRESENT ILLNESS: The patient is a 68-year-old female patient who has been in rehabilitation multiple times with history of hypertension, coronary artery disease with stent placement, CVA, TIA, anxiety, chronic kidney disease. She presented to the ER on 06/24/2019 with complaints of having some chest discomfort. The patient states that it has been a pressure/tightness radiated to her left jaw and shoulder region. She was flown by survival flight to [place] for further evaluation. She was admitted with unstable angina, [id number] kidney failure. She does have a history of chronic kidney disease with a normal baseline of 3-3.5 on her creatinine. Cardiology was consulted. She is status post stents on 06/27/2019 and 06/28/2019. Dr. Santa completed a successful PTCA with stent placement of the left anterior diagonal going from the 99% to 0%. Nephrology has been following her creatinine, which is stabilized at about 3.9. Renal ultrasound showed no hydronephrosis, but just chronic changes. She did have a UTI. Culture and sensitivity were done. She is on Zyvox at this time secondary to methicillin-resistant Staphylococcus aureus. She is on a renal ADA diet. She is on GI and DVT prophylaxis and telemetry. She has multiple comorbid conditions that will need to be managed during her stay here in the rehab and are all barriers to her discharge home at this time. Prior to admission, she was living with her daughter and was moderately independent with most ADLs and ambulation. She is now mod-to-max assist with ADLs and ambulation. She has had a successful discharge back home and this rehab in the past. She will require intensive therapy, PT, OT and speech therapy in order to return back to her prior level of functioning. COMORBIDITIES: In this patient include unstable angina, coronary artery disease status post stent, PTCA, acute kidney injury superimposed on chronic kidney disease, anxiety, COPD, UTI with MRSA, eosinophilia, gastroesophageal reflux disease, anemia due to chronic disease, CHF, chronic urinary retention, history of ureteral stents and pyelonephritis. PAST MEDICAL HISTORY: Significant for diabetes, AZ, stents and angioplasty, CHF, chronic O2 dependence, acid reflux, chronic lumbago, anxiety. PAST SURGICAL HISTORY: Includes gallbladder surgery, appendectomy, hysterectomy, hiatal hernia repair, cardiac stents, ganglion cyst removal, and carpal tunnel. ALLERGIES: CLONIDINE AND PENICILLIN. CURRENT MEDICATIONS: Include Floranex 460 mg daily. She is on Zemplar 2 mcg daily, Plavix 75 mg daily, Celexa 20 mg daily, aspirin chewable 81 mg daily, Protonix 40 mg daily, oxybutynin 5 mg t.i.d., propranolol 10 mg b.i.d., Nystatin ointment as needed. She is on isosorbide mononitrate 60 mg b.i.d., Stinnett 10/325 one tab t.i.d., Norvasc 2.5 mg b.i.d., Vibramycin 50 mg b.i.d., simethicone 80 mg every 4 hours p.r.n., Zofran 4 mg every 4 hours, Tylenol 650 every 4 hours HISTORY AND PHYSICAL [id number] BELL,JAMIE and MiraLax 17 g in 8 ounces of water daily. HABITS: No alcohol or tobacco use. FAMILY HISTORY: Noncontributory. SOCIAL HISTORY: The patient hopes to return back home and get back to her prior level of functioning. REVIEW OF SYSTEMS: GENERAL: Does complain of some weakness and fatigue. HEENT: Denies cold, cough, or congestion. CARDIOVASCULAR: Denies any chest pain. PHYSICAL EXAMINATION: VITAL SIGNS: Stable, afebrile. GENERAL: A morbidly obese female in no acute distress, alert upon exam. HEENT: Normocephalic and atraumatic. Mucosa moist. NECK: Supple, with no lymphadenopathy. LUNGS: Clear in upper florez, but decreased breath sounds at both bases. HEART: Regular rate and rhythm. No murmurs, rubs or gallops. ABDOMEN: Soft, obese, nontender, nondistended. Positive bowel sounds times 4. EXTREMITIES: No clubbing, cyanosis or edema. NEUROLOGIC: She does have noted 2/5 muscular strength in her lower extremities and 3/5 in her upper extremities. LABORATORY DATA: White count is 5.5, H&H of 9 and 30 and platelet count was noted to be 257. Sodium is 138, potassium 3.9, BUN and creatinine of 36 and 4.0 and blood sugar is noted to be 86. ASSESSMENT: This is a 68-year-old female patient admitted to rehab with a working diagnosis of debility secondary to a non-Q-wave AZ. The patient has potential to make improvement. We instituted the following multidisciplinary therapies include, but not limited to physical, occupational, respiratory, speech, nutritional services, prosthetics and orthotics. Given her complex medical condition and risk for more complications, rehabilitation services cannot be provided at a low level of care such as detention facility. PLAN: 1. Admit to rehab for an inpatient therapy to include the following disciplines; A. Physical therapy to improve gait, all transfer skills and bed mobility to a modified independent level. B. Occupational therapy to a modified independent level. C. Case management to assist with discharge planning and placement options. D. Nutrition to assist with nutritional needs. E. Rehabilitation nursing to assist in monitoring the patient's underlying medical conditions and to assist with any type of bowel or bladder management. 2. The patient's current medication and medical care will be continued. 3. I am going to go ahead and check vitamin D levels and also a long-term hemoglobin A1c. 4. We will see again in the morning, continuation of appropriate meds and I will followup. TRANSINT:[id number] Voice Confirmation ID: [id number] DOCUMENT ID: [id number] HISTORY AND PHYSICAL [id number] JAMIE BELL notes whether there has been none or any medical/functional change since admission: - No change since pre-admission amy. VISHAL attests patient continues to be appropriate for IRF: - Continues to be appropriate. DANIEL ALMAZAN MD at 1504 CC: [id number] DICTATION DATE: 06/30/19 0843 SPECIALTY TRIMMER: 06/30/19 0956 ADM IN [place] [id number] [place] [address]
[2019-07-06 19:52] VITALS: BP 136/51
--- NOTE | 2019-07-06 19:59 | NUR ---
AWAKE AND ALERT. RESTING IN BED WITH RESPIRATIONS UNALBORED. REMAINS IN CONTACT ISOLATION REALTED TO MRSA IN URINE. NO ACUTE DISTRESS NOTED. CALL LIGHT IN REACH.
--- NOTE | 2019-07-07 05:18 | NUR ---
QUIET HOURS. NO ACUTE CHANGES IN CONDITION THIS SHIFT. RESTING IN BED WITH RESPIRATIONS UNLABORED. REMAINS IN CONTACT ISOLATION.
[2019-07-07 07:27] VITALS: BP 146/53
[2019-07-07 16:51] LABS: APPEARANCE CLOUDY (CLEAR); BILIRUBIN NEGATIVE (NEGATIVE); COLOR YELLOW (YELLOW); GLUCOSE NEGATIVE (NEGATIVE); KETONE NEGATIVE (NEGATIVE); NITRITE POSITIVE (NEGATIVE); PROTEIN 1+ mg/dL (NEGATIVE); UROBILINOGEN NORMAL (NORMAL)
[2019-07-07 16:52] LABS: BACTERIA MODERATE /hpf (NONE SEEN); EPITHELIAL CELLS 0-5 /hpf (0-5); RED CELLS - URINE 0-5 /hpf (0-5); WHITE CELLS - URINE 25-50 /hpf (0-5)
--- NOTE | 2019-07-07 20:00 | NUR ---
PATIENT RECEIVED LAYING IN BED WATCHING TV. VITAL SIGNS & ASSESSMNET DONE. NO C/O PAIN OR DISTRESS. NO INCONTINENCE AT THIS TIME. HAT IN COMMODE FOR STOOL SPECIMEN FOR LAB. BED LOW. BEDSIDE TABLE & CALL LIGHT WITHIN REACH. WILL CONTINUE TO MONITOR.
[2019-07-07 20:17] VITALS: BP 141/55
--- NOTE | 2019-07-08 01:26 | NUR ---
I have reviewed this patient and I concur with the Shift Assessment completed by the Licensed Practical Nurse today this shift.
--- NOTE | 2019-07-08 03:45 | NUR ---
PATIENT EYES CLOSED. RESPIRATIONS 18 & EVEN. BED LOW. CALL LIGHT WITHIN REACH. WILL CONTINUE TO MONITOR.
--- NOTE | 2019-07-08 07:30 | NUR ---
PATIENT REMAINS IN CONTACT ISOLATION FOR MRSA IN URINE.
[2019-07-08 07:45] LABS: CALCIUM 9.5 mg/dL (8.5-10.1); CARBON DIOXIDE 26.4 mmol/L (21.0-32.0); POTASSIUM - SERUM 4.4 mmol/L (3.5-5.1)
[2019-07-08 07:58] LABS: BASOPHILS 0.4 % (0-2); EOSINOPHILS 6.8 % (0-7); HEMATOCRIT 29.8 % (36.0-48.0); IMMATURE GRANULOCYTES 0.2 % (0-5); LYMPHOCYTES 24.8 % (15-50); MCH 26.2 pg (26.0-34.0); MCHC 30.2 g/dL (31.0-37.0); MCV 86.9 fL (80.0-100.0); MEAN PLATELET VOLUME 10.1 fL (7.4-10.4); NEUTROPHILS 56.8 % (40-80); PLATELET COUNT 262 10x3/uL (130-400); RBC 3.43 10x6/uL (4.00-5.40); RDW 15.2 % (11.5-14.5); WBC 5.6 10x3/uL (4.8-10.8)
--- NOTE | 2019-07-08 08:00 | NUR ---
PATIENT SITTING UP IN BED TO EAT BREAKFAST. PATIENT IS ALERT/ORIENT. CALL LIGHT WITHIN REACH. VOICES NO NEEDS AT THIS TIME. PLANE TO DISCHARGE PATIENT HOME TODAY
[2019-07-08 08:06] VITALS: BP 134/47
[2019-07-08] MEDS ORDERED: INDERAL PO (08:28)
[2019-07-08] MEDS ORDERED: NITROQUICK0.4 MG SL (08:28)
[2019-07-08] MEDS ORDERED: ZYVOX600 MG PO (08:28)
[2019-07-08] MEDS ORDERED: HYDROCODON-ACE1 EA10 PO (08:29)
--- NOTE | 2019-07-08 09:35 | NUR ---
OCCUPATIONAL THERAPIST IN PATIENTS ROOM WORKING WITH PATIENT BEFORE DISCHARGE
--- NOTE | 2019-07-08 09:38 | NUR ---
PATIENT DISCHARGING HOME TODAY WITH FAMILY. [facility] WILL RESUME THERAPY AT HOME. NO NEW DME NEEDED AT THIS TIME.DR. SHORT/JAIDEN SHOE STAINER 07/14/19 @ 11:00, DR. BARR 08/03/19 @ 2:00, DR. LEIVA/LAI PHAM SHOE STAINER 07/20/19 @ 2:20. PATIENT CHOICE FORM AND [facility] FORM SIGNED, COPY GIVEN TO PATIENT AND FILED IN CHART. DISCHARGE INSTRUCTIONS FAXED TO PCP, HOME HEALTH AND REVIEWED WITH PATIENT.
[2019-07-08 10:28] LABS: % SATURATION 17 % (15-55); IRON 30 ug/dl (35-150); TOTAL IRON BIND CAPACITY 167 ug/dl (260-445); UNSAT IRON BIND CAPACITY 137 ug/dl (150-375)
[2019-07-08 11:09] LABS: URIC ACID 11.5 mg/dL (2.6-7.2)
--- NOTE | 2019-07-08 12:21 | NUR ---
DR MORIN INTO SEE PATIENT. NEW ORDERS RECEIVED FOR LEVAQUIN FOR UTI. DR BARR CALLED IN REGARDS TO INDERAL 10MG BID. STATED TO CONTINUE WITH THIS MED AND DOSE
--- NOTE | 2019-07-08 13:07 | NUR ---
PATIENT GIVEN DISCHARGE INSTRUCTIONS. DISCHARGE MEDICATIONS CALLED IN [facility] ON 70 PER DAUGHTERS REQUEST
--- NOTE | 2019-07-08 15:47 | NUR ---
PATIENTS DAUGHTER HERE TO TAKE PATIENT HOME. PATIENT HELPED OUT TO CAR BY PHYSICAL THERAPIST
== END 2019-07-08 15:48 | disposition home health service (06) | DRG 947 ==
LOC: D.REHAB 16:41
PROVIDERS: Internal Medicine Nephrology; ADMIT Emergency Medicine; ATTEND Emergency Medicine
DX: R53.81 Other malaise (principal); I21.4 Non-ST elevation (NSTEMI) myocardial infarction; I25.110 Atherosclerotic heart disease of native coronary artery with unstable angina pectoris; N17.9 Acute kidney failure, unspecified; N39.0 Urinary tract infection, site not specified; N18.4 Chronic kidney disease, stage 4 (severe); E11.22 Type 2 diabetes mellitus with diabetic chronic kidney disease; J44.9 Chronic obstructive pulmonary disease, unspecified; B95.62 Methicillin resistant Staphylococcus aureus infection as the cause of diseases classified elsewhere; D63.1 Anemia in chronic kidney disease; K21.9 Gastro-esophageal reflux disease without esophagitis; R33.9 Retention of urine, unspecified; D72.1 Eosinophilia; F41.9 Anxiety disorder, unspecified

== ENCOUNTER 2019-07-19 19:01 | Inpatient (IN) | payer MEDICARE ==
[2019-07-19] VITALS (9 sets, daily range): BP systolic 172–200; BP diastolic 53–80
[~2019-07-19] VITALS: Ht 160 cm; Wt 108.2 kg
--- NOTE | ~2019-07-19 | HEMODYNAMI ---
PATIENT:JAMIE BELL MEDICAL RECORD: [id number] : 46 LOCATION:[facility] D.2114 ADMISSION DATE: 07/19/19 Generatedon:07/20/201912:26 Patient name: JAMIE BELL Patient #: [id number] SN: [id number] : 1950 Date of study: 07/20/2019 Page: Of Hemodynamic Procedure Report Patient Data Patient Demographics Procedure consent was obtained First Name: JAMIE Gender: Female Last Name: RAY : 1950 Patient #: [id number] Age: 68 year(s) Race: SSN: [id number] Additional ID: [id number] Contact details Address: [address] [place] [address] State: [place] City: [place] Zip code: [address] Past Medical History Allergies Allergen Reaction Date Comments Reported Other allergy 06/27/2019 penicillin, clonadine Admission Admission Data Admission Date: 07/19/2019 Admission Time: 23:23 Arrival Date: 07/19/2019 Arrival Time: 23:23 Admit Source: Emergency Insurance Payor: Medicare department Room #: D.2114 Height (in.): 62.99 BSA: 2.11 (m2) Height (cm.): 160 BMI: 43.75 (kg/m2) Weight (lbs.): 246.92 Weight (kg.): 112 Lab Results Lab Result Date: 07/20/2019 Lab Result Time: 0:00 Biochemistry Name Units Result Min Max BUN mg/dl 45 --(----)-* 7 18 Creatinine mg/dl 4.6 --(----)-* 0.6 1.3 CBC Name Units Result Min Max Hemoglobin g/dl 10.9 *-(----)-- 13.5 17.5 Procedure Procedure Types Cath Procedure Diagnostic Procedure LHC LHC w/Coronaries Sedation Charges Moderate Sedation up to 30 minutes PCI Procedure Coronary Stent Coronary Stent Initial Procedure Description Procedure Date Procedure Date: 07/20/2019 Procedure Start Time: 11:58 Procedure End Time: 12:21 Procedure Staff Name Function Leandro Santa MD Performing Physician Ni Guzman RT Monitor Harshad Siu RT Scrub David Mckeon RN Nurse Procedure Data Cath Procedure Fluoroscopy Diagnostic fluoroscopy Total fluoroscopy Time: 7.5 time: 7.5 min min Diagnostic fluoroscopy Total fluoroscopy dose: 826 dose: 826 mGy mGy Contrast Material Contrast Material Type Amount (ml) Isovue 300 70 Entry Location Entry Primary Successful Side Size Upsize Upsize Entry Closure Succes sful Closure Location (Fr) 1 (Fr) 2 (Fr) Remarks Device Remarks Femoral Right 7 Fr Exoseal artery Short Estimated blood loss: 5 ml Diagnostic catheters Device Type Used For End Catheter Placement DIAGNOSTIC Pigtail 5Fr LV Angiography catheter ([id number]) DIAGNOSTIC AR2 MOD 5 Fr Right Coronary catheter ([id number]) Angiography Procedure Complications No complications Procedure Medications Medication Administration Route Dosage Oxygen etCO2 Nasal cannula 2 l/min Lidocaine 2% added to field 20 Heparin Flush Bag added to field 2 bags (1000units/500ml NS) 0.9% NaCl I.V. 300 ml/hr Versed I.V. 1 mg Versed I.V. 1 mg Fentanyl I.V. 50 mcg Fentanyl I.V. 50 mcg Heparin Bolus I.V. 5000 units Versed I.V. 1 mg Fentanyl I.V. 50 mcg Versed I.V. 1 mg Fentanyl I.V. 50 mcg Hemodynamics Rest BSA: 2.11 (m2) HGB: 10.9 (g/dl) O2 Consumption: Estimated: 190.52 (ml/min) O2 Co nsumption indexed: Estimated:90.29 (ml/min/m) Heart Rate: 65 (bpm) Pressure Samples Time Site Value (mmHg) Purpose Heart Use Rate(bpm) 12:01 LV 69/9,13 Snapshot 61 Snapshots Pre Cath Intra NCS Post Cath Vital Signs Time Heart Resp SPO2 etCO2 NIBP (mmHg) Rhythm Pain Sedation Rate (ipm) (%) (mmHg) Status Level (bpm) 11:40:28 69 14 100 33.8 Measuring NSR 0 (11) 10(A) , No pain 11:42:47 63 14 100 33.8 Out of NSR 0 (11) 10(A) range , No pain 11:43:26 62 15 100 33.8 197/92(159) NSR 0 (11) 10(A) , No pain 11:47:40 64 14 100 33.8 192/93(170) NSR 0 (11) 10(A) , No pain 11:51:29 61 12 98 38.3 173/84(138) NSR 0 (11) 10(A) , No pain 11:55:23 59 14 98 8.2 141/66(112) NSR 0 (11) 10(A) , No pain 11:59:39 64 17 96 37.6 155/73(109) NSR 0 (11) 9(A) , No pain 12:03:38 64 15 95 0 127/55(73) NSR 0 (11) 9(A) , No pain 12:07:30 68 15 98 13.5 82/62(74) NSR 0 (11) 9(A) , No pain 12:11:56 69 14 96 9 87/55(78) NSR 0 (11) 9(A) , No pain 12:16:20 67 14 97 9.7 101/55(82) NSR 0 (11) 10(A) , No pain 12:20:51 66 8 98 30.8 110/50(96) NSR 0 (11) 9(A) , No pain 12:24:51 0 No Cuff NSR 0 (11) 9(A) , No pain Medications Time Medication Route Dose Verified Delivered Reason Notes Effectiveness by by 11:38:49 Oxygen etCO2 2 Leandro Hernandez used for Nasal l/min Kiet Mckeon RN procedure cannula 11:38:56 Lidocaine 2% added 20ml Leandro Reeves for local to vial Kiet Santa MD anesthetic field 11:39:01 Heparin Flush added 2 Leandro Reeves used for Bag to bags Kiet Santa MD procedure (1000units/500ml field NS) 11:39:16 0.9% NaCl I.V. 300 Leandro Hernandez Per physician Order ed ml/hr Kiet Mckeon RN to run for 3 hrs 11:56:22 Versed I.V. 1 mg Leandro Hernandez for sedation Kiet Mckeon RN 11:56:28 Fentanyl I.V. 50 Leandro Hanleyie for sedation mcg Kiet Mckeon RN 11:59:23 Versed I.V. 1 mg Leandro Hanleyie for sedation Kiet Mckeon RN 11:59:30 Fentanyl I.V. 50 Leandrodenise Hanleyie for sedation mcg Kiet Mckeon RN 12:03:29 Heparin Bolus I.V. 5000 Leandro Hanleyie for verif ied units Kiet Mckeon RN anticoagulation with dr santa 12:06:09 Versed I.V. 1 mg Leandro Hanleyie for sedation Kiet Mckeon RN 12:06:12 Fentanyl I.V. 50 Leandro Hanleyie for sedation mcg Kiet Mckeon RN 12:10:17 Versed I.V. 1 mg Leandro Hanleyie for sedation Kiet Mckeon RN 12:11:20 Fentanyl I.V. 50 Leandro Hanleyie for sedation mcg Kiet Mckeon RN Procedure Log Time Note 11:05:35 Informed consent obtained and on chart 11:05:41 Diagnostic Cath Status : Elective 11:06:14 Admit Source: Emergency department 11:06:21 Arrival Date: 07/19/2019 11:23:00 PM 11:06:30 Insurance Payor : Medicare 11:15:29 Lab Result : Hemoglobin 10.9 g/dl 11:15:29 Lab Result : Creatinine 4.6 mg/dl 11:15:29 Lab Result : BUN 45 mg/dl 11:16:09 5) <15 or on dialysis Very severe, or end stage kidney failure. 11:16:33 Maximum allowable contrast dose (3.7 X eGFR X 0.75)27 ml. 11:16:45 David Mckeon RN sent for patient. Start room use. 11:16:46 Time tracking: Regular hours (M-F 7:00 - 5:00) 11:16:50 Plan of Care:Hemodynamics will remain stable., Cardiac rhythm will remain stable., Comfort level will be maintained., Respiratory function will remain adequate., Patient/ family verbilizes understanding of procedure., Procedure tolerated without complication., Recovers from procedure without complications.. 11:17:44 Patient Weight : 246.92 lbs 11:17:58 Patient Height : 62.99 inches 11:31:30 Patient received from Med II to CCL 2 Alert and oriented. Tansferred to table in Supine position. 11:31:31 Warm blankets applied, and tameka hugger turned on for patient comfort. 11:31:32 Correct patient and procedure confirmed by team. 11:31:32 ECG and BP/O2 sat monitors applied to patient. 11:38:39 Vital chart was started 11:38:49 Oxygen 2 l/min etCO2 Nasal cannula was administered by David Mckeon RN; used for procedure; 11:38:56 Lidocaine 2% 20ml vial added to field was administered by Leandro Santa MD; for local anesthetic; 11:39:01 Heparin Flush Bag (1000units/500ml NS) 2 bags added to field was administered by Leandro Santa MD; used for procedure; 11:39:16 0.9% NaCl 300 ml/hr I.V. was administered by David Mckeon RN; Per physician; Ordered to run for 3 hrs 11:41:02 Vital chart was stopped 11:42:14 Vital chart was started, B/P cuff moved to lt radial due to pain during inflation. 11:48:03 Baseline sample Acquired. 11:48:21 Rhythm: sinus rhythm 11:48:22 Full Disclosure recording started 11:48:27 H&P Date Dictated: 07/20/2019 New H&P dictated by physician.. 11:48:28 Pre-procedure instructions explained to patient. 11:48:28 Pre-op teaching completed and patient verbalized understanding. 11:48:30 Family in waiting room. 11:48:31 Patient NPO since Midnight. 11:48:34 Is the patient allergic to Iodine/contrast media? No. 11:48:36 Was the patient premedicated? No 11:48:43 Is patient on blood thinner?Yes 11:48:46 ACC The patient was administered the following blood thiners within the last 24 hours: ACCPlavix 11:48:55 Previous problem with sedation/anesthesia? No ? 11:49:07 Opens mouth fully? Yes 11:49:08 Sticks out tongue? Yes 11:49:10 Airway obstruction? Yes copd 11:49:23 Dentures? Yes den out 11:49:27 Pre procedure: right dorsailis pedis pulse 2+ Normal; easily identifiable; not easily obliterated 11:49:29 Pre procedure: left dorsailis pedis pulse 2+ Normal; easily identifiable; not easily obliterated 11:49:36 Patient pain scale 0/10 ?. 11:49:41 IV patent on arrival in left forearm with 0.9% NaCl at [facility]. 11:49:44 Lab results completed and on chart. 11:49:48 Right groin area was prepped with chlora-prep and draped in sterile fashion 11:49:49 Alarms reviewed by RKeo N. 11:49:49 Sharps counted by scrub and verified by RKeoN. 11:55:45 Physician arrived 11:55:45 --------ALL STOP TIME OUT------ 11:55:46 Final Timeout: patient, procedure, and site verified with staff and physician. All members of the team are in agreement. 11:55:48 Right groin site verified by team. 11:55:51 Fire Safety Assessment: A--An alcohol-based skin anteseptic being used preoperatively., C--Open oxygen or nitrous oxide is being used., D--An ESU, laser, or fiber-optic light is being used. 11:55:54 Physical assessment completed. ASA score P 2 - A patient with mild systemic disease as per Leandro Santa MD. 11:55:58 Sedation plan: IV Moderate Sedation Medication:Versed, Fentanyl 11:56:04 Use device set CATH PACK 11:56:06 ACIST Syringe (92950) opened to sterile field. 11:56:07 ACIST Hand Control (88313) opened to sterile field. 11:56:07 ACIST Manifold (00516) opened to sterile field. 11:56:08 Medline Cath Pack ([id number]) opened to sterile field. 11:56:09 Bag Decanter (2002) opened to sterile field. 11:56:09 JERAMIE Guide Wire (573-184) opened to sterile field. 11:56:22 Versed 1 mg I.V. was administered by David Mckeon RN; for sedation; 11:56:28 Fentanyl 50 mcg I.V. was administered by David Mckeon RN; for sedation; 11:56:38 SHEATH 7FR [place] (RFB466) opened to sterile field. 11:56:39 INFLATOR Merit BasixCompak (XR4474) opened to sterile field. 11:56:40 CHOICE PT Extra Support 182cm wire ([id number]) opened to sterile field. 11:56:40 GUIDE 6FR EBU 4.5 SH catheter ([id number]) opened to sterile field. 11:56:57 SuperCross Microcatheter 90 angle (5304) opened to sterile field. 11:57:03 Zero performed for pressure channel P1 11:57:25 Procedure started. 11:58:25 Local anesthetic to right femoral artery with Lidocaine 2% by Leandro Santa MD.INITIAL ACCESS ONLY 11:58:34 A 7 Fr Short sheath was inserted into the Right Femoral artery 11:59:23 Versed 1 mg I.V. was administered by David Mckeon RN; for sedation; 11:59:30 Fentanyl 50 mcg I.V. was administered by David Mckeon RN; for sedation; 12:00:56 A DIAGNOSTIC Pigtail 5Fr catheter ([id number]) was advanced over the wire and used for LV Angiography. 12:02:04 LV hemodynamics recorded. 12:02:06 LV gram done using BOOTHE 12:02:09 Injector settings: Ml/sec: 5, Volume: 15, 12:02:14 EF : 50 % 12:02:42 Catheter removed. 12:02:51 A DIAGNOSTIC AR2 MOD 5 Fr catheter ([id number]) was advanced over the wire and used for Right Coronary Angiography. 12:02:59 RCA angiography performed. 12:03:02 Injector settings: Ml/sec: 3, Volume: 6, 12:03:25 Catheter removed. 12:03:29 Heparin Bolus 5000 units I.V. was administered by David Mckeon RN; for anticoagulation; verified with dr santa 12:03:40 7 Fr ebu 4 sh guide catheter was inserted over the wire 12:05:12 CHOICE PT Extra Support 182cm wire ([id number]) opened to sterile field. 12:05:26 choice pt wire advanced. 12:05:27 CHOICE PT Extra Support J 300cm guide wire ([id number]) opened to sterile field. 12:06:09 Versed 1 mg I.V. was administered by David Mckeon RN; for sedation; 12:06:10 short choice pt extra support exchanged for long choice pt extra support 12:06:12 Fentanyl 50 mcg I.V. was administered by David Mckeon RN; for sedation; 12:06:13 Pre PCI Site: [place] Diag1 has 100% stenosis. 12:06:13 ACC Pre-intervention ANDREA Flow is 0. 12:10:17 Versed 1 mg I.V. was administered by David Mckeon RN; for sedation; 12:11:02 Inflate balloon Inflation number: 1 A EMERGE OTW 2.5 x 30 balloon ([id number]) was prepped and advanced across the 1st Diag 100, then inflated to 13 NOVA for 0:10 (min:sec) . 12:11:16 Inflation number: 2 The EMERGE OTW 2.5 x 30 balloon ([id number]) was reinflated across the 1st Diag , to 11 NOVA for 0:10 (min:sec) . 12:11:20 Fentanyl 50 mcg I.V. was administered by David Mckeon RN; for sedation; 12:12:17 Balloon removed over the wire. 12:14:32 Place stent Inflation Number: 3 A CHARLEY RX 2.0 x 12 stent ([id number]) was prepped and advanced across the 1st Diag 100. The stent was deployed at 21 NOVA for 0:10 (min:sec) . 12:15:06 Stent catheter was removed intact over wire. 12:15:07 Wire removed. 12:15:07 Guide catheter removed. 12:15:18 EXOSEAL 7Fr (EX700) opened to sterile field. 12:16:51 ACC Post-intervention ANDREA Flow is 3. 12:17:30 Sheath removed intact; hemostasis achieved with Exoseal to the Right Femoral artery. 12:17:34 Procedure ended.(Physican Out) 12:18:34 Fluoroscopy time 07.50 minutes. 12:18:38 Flurop Dose total: 826 12:18:38 Fluoroscopy dose: 826 mGy 12:18:47 Dose Area Product 65935 mGy/cm. 12:18:59 Contrast amount:Isovue 300 70ml. 12:19:11 Sharps counted by scrub and verified by R.N. 12:19:13 Insertion/operative site no bleeding no hematoma. 12:19:16 Post-op/insertion site Right Femoral artery dressed using a 4 x 4 and Tegaderm. 12:19:19 Post procedure rhythm: unchanged. 12:19:23 Estimated blood loss: 5 ml 12:19:24 Post procedure instruction explained to patient.Patient verbalizes understanding. 12:19:25 Patient needs reinforcement of post procedure teaching. 12:19:53 ACT drawn and resulted at 222 seconds. (normal therapeutic range 180-240 seconds). 12:20:27 Procedure type changed to Cath procedure, Diagnostic procedure, LHC, LHC w/Coronaries, Sedation Charges, Moderate Sedation up to 30 minutes, PCI procedure, Coronary Stent, Coronary Stent Initial 12:20:29 Procedure and supply charges have been captured, reviewed, submitted and are correct. 12:20:33 Procedure Complication : No complications 12:20:36 See physician's report for complete and final results. 12:20:55 Report given [address] [facility]. 12:20:57 Patient transfered to [facility] with Stretcher. 12:20:59 Procedure ended. 12:20:59 Full Disclosure recording stopped 12:21:06 ACC-PCI Only Patient was given prescriptions, or instructed by Leandro Santa MD to start/continue the following medications upon discharge: Plavix 12:21:09 End room use (Document Last) 12:26:03 Vital chart was stopped Intervention Summary Intervention Notes Time ActionType Lesion and Equipment Used Action# Pressure Duration Attributes 12:11:02 Inflate 1st Diag EMERGE OTW 2.5 1 13 00:10 balloon x 30 balloon ([id number]) 12:11:16 Reinflate 1st Diag EMERGE OTW 2.5 2 11 00:10 balloon x 30 balloon ([id number]) 12:14:32 Place stent 1st Diag CHARLEY RX 2.0 x 3 21 00:10 12 stent ([id number]) Device Usage Item Name Manufacture Quantity Catalog Number Hospital Part Current Minimal Lot# / Charge Number Stock Stock Serial# Code ACIST Syringe Acist 1 16359 190563 168704 743191 20 (11537) Medical Systems Inc ACIST Hand Acist 1 58850 611925 539531 012086 5 Control Medical (39327) Systems Inc ACIST Manifold Acist 1 57168 941037 469588 664621 5 (74274) Medical Systems Inc Medline Cath Medline 1 [id number] 349653 92750 596941 5 Pack ([id number]) Bag Decanter Microtek 1 315027 67807 258238 5 () Medical Inc. EMERALD Guide Cardinal 1 123-188 126378 664824 851690 5 Wire (976-406) Health SHEATH 7FR Terumo 1 DTL840 221898 911852 630040 5 [place] (NBV964) INFLATOR Merit Merit 1 JB5979 974685 763122 344791 15 [facility] (VO4505) CHOICE PT [place] 2 [id number] 242876 107284 148038 5 Extra Support Scientific 182cm wire ([id number]) GUIDE 6FR EBU Medtronic 1 [id number] 197659 53226 371615 0 4.5 SH catheter ([id number]) SuperCross Vascular 1 5304 246697 965033 185552 5 Microcatheter Solutions 90 angle (5304) DIAGNOSTIC Cardinal 1 [id number] 185630 908864 499087 5 Pigtail 5Fr Health catheter ([id number]) DIAGNOSTIC AR2 Cardinal 1 [id number] 187322 290076 042203 20 MOD 5 Fr Health catheter ([id number]) EMERGE OTW 2.5 [place] 1 [id number] 868465 279973 077976 5 [id number] x 30 balloon Scientific ([id number]) CHARLEY RX 2.0 x Medtronic 1 [id number] 289588 6224930 310956 5 [id number] 12 stent ([id number]) EXOSEAL 7Fr Cardinal 1 EX700 398959 357484 059937 5 (EX700) Health CHOICE PT [place] 1 [id number] 223898 297604 546177 5 Extra Support Scientific J 300cm guide wire ([id number]) Signature Audit [place] Stage Time Signature Unsigned Intra-Procedure 07/20/2019 Ni Guzman 12:25:47 PM RT(R) Signatures Performing Physician : Signature : Leandro Santa MD Date : Time : Monitor : Ni Guzman RT Signature : Date : Time : Nurse : Buffie Mckeon RN Signature : Date : Time : [place] [id number] [facility] [place] [address]
--- NOTE | ~2019-07-19 | HEMODYNAMI ---
PATIENT:JAMIE BELL MEDICAL RECORD: [id number] : 46 [id number] ADMISSION DATE: 07/19/19 Generatedon:07/22/201915:22 Patient name: JAMIE BELL Patient #: [id number] S SN: [id number] : 1950 Date of study: 07/22/2019 Page: Of Hemodynamic Procedure Report Patient Data Patient Demographics Procedure consent was obtained First Name: JAMIE Gender: Female Last Name: RAY : 1950 Patient #: [id number] Age: 68 year(s) Race: SSN: [id number] Additional ID: [id number] Contact details Address: [address] [place] [address] State: [place] City: [place] Zip code: [address] Past Medical History Allergies Allergen Reaction Date Comments Reported Other allergy 06/27/2019 penicillin, clonadine Other allergy 07/22/2019 PCN, Clonidine Admission Admission Data Admission Date: 07/19/2019 Admission Time: 23:23 Arrival Date: 07/19/2019 Arrival Time: 23:23 Admit Source: Emergency Insurance Payor: Medicare department [facility] #: [id number] Room #: D.2114 Height (in.): 62.99 BSA: 2.11 (m2) Height (cm.): 160 BMI: 43.75 (kg/m2) Weight (lbs.): 246.92 Weight (kg.): 112 Lab Results Lab Result Date: 07/20/2019 Lab Result Time: 0:00 Biochemistry Name Units Result Min Max BUN mg/dl 45 --(----)-* 7 18 Creatinine mg/dl 4.6 --(----)-* 0.6 1.3 CBC Name Units Result Min Max Hemoglobin g/dl 10.9 *-(----)-- 13.5 17.5 Procedure Procedure Types Cath Procedure Diagnostic Procedure Sedation Charges Moderate Sedation up to 15 minutes PCI Procedure PTCA PTCA Initial Procedure Description Procedure Date Procedure Date: 07/22/2019 Procedure Start Time: 15:06 Procedure End Time: 15:20 Procedure Staff Name Function Leandro Santa MD Performing Physician Harshad Siu RT Monitor Althea Gutiérrez RT Scrub David Mckeon RN Nurse Wero Perez RT Air Brake Worker Procedure Data Cath Procedure Fluoroscopy Diagnostic fluoroscopy Total fluoroscopy Time: 3.4 time: 3.4 min min Diagnostic fluoroscopy Total fluoroscopy dose: 270 dose: 270 mGy mGy Contrast Material Contrast Material Type Amount (ml) Isovue 300 27 Entry Location Entry Primary Successful Side Size Upsize Upsize Entry Closure Succes sful Closure Location (Fr) 1 (Fr) 2 (Fr) Remarks Device Remarks Femoral Left 7 Fr Exoseal artery Short Estimated blood loss: 10 ml Procedure Complications No complications Procedure Medications Medication Administration Route Dosage Oxygen etCO2 Nasal cannula 2 l/min Lidocaine 2% added to field 20 Heparin Flush Bag added to field 2 bags (1000units/500ml NS) 0.9% NaCl I.V. 100 ml/hr Versed I.V. 2 mg Fentanyl I.V. 50 mcg Versed I.V. 2 mg Fentanyl I.V. 100 mcg Heparin Bolus I.V. 4000 units Versed I.V. 2 mg Fentanyl I.V. 50 mcg Hemodynamics Rest BSA: 2.11 (m2) HGB: 10.9 (g/dl) O2 Consumption: Estimated: 199.19 (ml/min) O2 Co nsumption indexed: Estimated:94.4 (ml/min/m) Heart Rate: 76 (bpm) Snapshots Pre Cath Intra NCS Post Cath Vital Signs Time Heart Resp SPO2 etCO2 NIBP (mmHg) Rhythm Pain Sedation Rate (ipm) (%) (mmHg) Status Level (bpm) 14:36:20 76 18 100 36 139/73(109) NSR 0 (11) 10(A) , No pain 14:40:14 63 19 99 18 149/73(109) NSR 0 (11) 10(A) , No pain 14:44:32 74 10 99 27.7 153/74(106) NSR 0 (11) 10(A) , No pain 14:48:54 67 20 98 22.5 137/67(94) NSR 0 (11) 10(A) , No pain 14:53:12 70 10 98 35.2 147/69(99) NSR 0 (11) 10(A) , No pain 14:57:10 72 16 99 36 138/69(95) NSR 0 (11) 10(A) , No pain 15:06:21 69 15 97 35.2 141/60(0) NSR 0 (11) 10(A) , No pain 15:10:16 74 10 97 37.4 138/78(110) NSR 0 (11) 9(A) , No pain 15:14:26 74 14 98 39 128/68(101) NSR 0 (11) 9(A) , No pain 15:18:32 85 12 99 37.5 127/66(101) NSR 0 (11) 10(A) , No pain Medications Time Medication Route Dose Verified Delivered Reason Notes Effectiveness by by 14:44:28 Oxygen etCO2 2 Leandro Buffie used for Nasal l/min Kiet Mckeon RN procedure cannula 14:44:35 Lidocaine 2% added 20ml Leandro Leandro for local to vial Kiet Santa MD anesthetic field 14:44:40 Heparin Flush added 2 Leanrdo Leandro used for Bag to bags Kiet Santa MD procedure (1000units/500ml field NS) 14:44:51 0.9% NaCl I.V. 100 Leandro Buffie Per physician ml/hr Kiet Mckeon RN 15:00:39 Versed I.V. 2 mg Leandro Buffie for sedation Kiet Mckeon RN 15:00:45 Fentanyl I.V. 50 Leandro Buffie for sedation mcg Kiet Mckeon RN 15:07:33 Versed I.V. 2 mg Leandro Buffie for sedation Kiet Mckeon RN 15:07:39 Fentanyl I.V. 100 Leandro Buffie for sedation mcg Kiet Mckeon RN 15:10:26 Heparin Bolus I.V. 4000 Leandro Buffie for verif ied units Kiet Mckeon RN anticoagulation with dr santa 15:12:40 Versed I.V. 2 mg Leandro Buffie for sedation Kiet Mckeon RN 15:12:45 Fentanyl I.V. 50 Leandro Buffie for sedation mcg Kiet Mckeon RN Procedure Log Time Note 14:00:11 Patient Height : 62.99 inches 14:00:11 Patient Weight : 246.92 lbs 14:01:57 Informed consent obtained and on chart 14:04:51 Signed procedure consent form obtained from patient. 14:04:54 Time tracking: Regular hours (M-F 7:00 - 5:00) 14:04:59 Plan of Care:Hemodynamics will remain stable., Cardiac rhythm will remain stable., Comfort level will be maintained., Respiratory function will remain adequate., Patient/ family verbilizes understanding of procedure., Procedure tolerated without complication., Recovers from procedure without complications.. 14:05:02 Procedure Status Urgent Heart Cath (IP). 14:05:29 Wero Perez RT(R) sent for patient. Start room use. 14:19:26 Patient received from PCU to CCL 2 Alert and oriented. Tansferred to table in Supine position. 14:19:27 Warm blankets applied, and tameka hugger turned on for patient comfort. 14:19:27 Correct patient and procedure confirmed by team. 14:19:28 ECG and BP/O2 sat monitors applied to patient. 14:35:34 Vital chart was started 14:35:35 Baseline sample Acquired. 14:35:39 Rhythm: sinus rhythm 14:35:41 Full Disclosure recording started 14:35:48 H&P Date Dictated: 07/20/2019 Within 30 days and on chart.. 14:35:49 Pre-procedure instructions explained to patient. 14:35:49 Pre-op teaching completed and patient verbalized understanding. 14:35:50 Family in waiting room. 14:35:51 Patient NPO since Midnight. 14:36:08 Patient allergic to Other allergyPCN, Clonidine 14:36:11 Is the patient allergic to Iodine/contrast media? No. 14:36:12 Is patient on blood thinner?Yes 14:36:14 ACC The patient was administered the following blood thiners within the last 24 hours: ACCAspirin, ACCPlavix 14:37:34 Patient diabetic? No. 14:37:45 Previous problem with sedation/anesthesia? No ? 14:37:54 Snore? No 14:37:55 Sleep apnea? No 14:37:56 Deviated septum? No 14:37:57 Opens mouth fully? Yes 14:37:58 Sticks out tongue? Yes 14:38:01 Airway obstruction? Yes COPD 14:38:03 Dentures? Yes OUT 14:38:13 Pre procedure: left dorsailis pedis pulse 2+ Normal; easily identifiable; not easily obliterated 14:38:15 Patient pain scale 0/10 ?. 14:38:22 IV patent on arrival in right forearm with 0.9% NaCl at [facility]. 14:38:34 Lab results completed and on chart. 14:38:37 Left groin area was prepped with chlora-prep and draped in sterile fashion 14:38:38 Alarms reviewed by R. N. 14:38:38 Sharps counted by scrub and verified by R.N. 14:38:41 ACIST Syringe (84350) opened to sterile field. 14:38:41 Bag Decanter (2002S) opened to sterile field. 14:38:41 Medline Cath Pack ([id number]) opened to sterile field. 14:38:42 ACIST Hand Control (00054) opened to sterile field. 14:38:43 ACIST Manifold (17339) opened to sterile field. 14:38:44 Tegaderm 4 x 4 (1626W) opened to sterile field. 14:38:45 EMERALD Guide Wire (817-286) opened to sterile field. 14:38:59 CHOICE PT Extra Support J 300cm guide wire ([id number]) opened to sterile field. 14:39:00 SHEATH 7FR [place] (RWZ518) opened to sterile field. 14:39:01 INFLATOR Merit BasixCompak (CV5303) opened to sterile field. 14:44:28 Oxygen 2 l/min etCO2 Nasal cannula was administered by David Mckeon RN; used for procedure; 14:44:35 Lidocaine 2% 20ml vial added to field was administered by Leandro Santa MD; for local anesthetic; 14:44:40 Heparin Flush Bag (1000units/500ml NS) 2 bags added to field was administered by Leandro Santa MD; used for procedure; 14:44:51 0.9% NaCl 100 ml/hr I.V. was administered by David Mckeon RN; Per physician; 14:59:34 Physician arrived 14:59:34 --------ALL STOP TIME OUT------ 14:59:35 Final Timeout: patient, procedure, and site verified with staff and physician. All members of the team are in agreement. 14:59:37 Left groin site verified by team. 14:59:41 Fire Safety Assessment: A--An alcohol-based skin anteseptic being used preoperatively., C--Open oxygen or nitrous oxide is being used., D--An ESU, laser, or fiber-optic light is being used. 14:59:56 Physical assessment completed. ASA score P 3 - A patient with severe systemic disease as per Leandro Santa MD. 15:00:39 Versed 2 mg I.V. was administered by David Mckeon RN; for sedation; 15:00:45 Fentanyl 50 mcg I.V. was administered by David Mckeon RN; for sedation; 15:00:57 5) <15 or on dialysis Very severe, or end stage kidney failure. 15:01:02 Maximum allowable contrast dose (3.7 X eGFR X 0.75)27 ml. 15:01:05 Sedation plan: IV Moderate Sedation Medication:Versed, Fentanyl 15:03:22 Zero performed for pressure channel P1 15:06:45 Procedure started. 15:06:55 Local anesthetic to left femerol artery with Lidocaine 2% by Leandro Santa MD.INITIAL ACCESS ONLY 15:07:02 A 7 Fr Short sheath was inserted into the Left Femoral artery 15:07:26 ACC Pre-intervention ANDREA Flow is 3. 15:07:33 Versed 2 mg I.V. was administered by David Mckeon RN; for sedation; 15:07:39 Fentanyl 100 mcg I.V. was administered by David Mckeon RN; for sedation; 15:07:50 Pre PCI Site: [place] pCirc has 99% stenosis. 15:08:21 GUIDE 7FR EBU 4.0 SH catheter ([id number]) opened to sterile field. 15:08:28 6 Fr EBU 4 SH guide catheter was inserted over the wire 15:08:40 CHOICE PT ES wire advanced. 15:10:26 Heparin Bolus 4000 units I.V. was administered by David Mckeon RN; for anticoagulation; verified with dr santa 15:10:34 SuperCross Microcatheter 90 angle (5304) opened to sterile field. 15:11:36 SUPER CROSS ADVANCED. 15:11:37 Wire advanced across lesion. 15:11:55 SUPER CROSS REMOVED INTACT OVER WIRE. 15:12:40 Versed 2 mg I.V. was administered by David Mckeon RN; for sedation; 15:12:45 Fentanyl 50 mcg I.V. was administered by David Mckeon RN; for sedation; 15:14:37 The EUPHORA 2.5 x 12 Balloon ([id number]) was advanced and then removed because of failure to cross lesion 15:14:50 Inflate balloon Inflation number: 1 A EUPHORA 1.5 x 10 Balloon ([id number]) was prepped and advanced across the Prox CX , then inflated to 21 NOVA for 0:10 (min:sec) . 15:15:17 Inflation number: 2 The EUPHORA 1.5 x 10 Balloon ([id number]) was reinflated across the Prox CX , to 21 NOVA for 0:10 (min:sec) . 15:15:39 Balloon removed over the wire. 15:16:39 The EUPHORA 2.5 x 12 Balloon ([id number]) was advanced and then removed because of failure to cross lesion 15:16:40 Balloon removed over the wire. 15:16:42 Wire removed. 15:16:43 Guide catheter removed. 15:17:31 EXOSEAL 7Fr (EX700) opened to sterile field. 15:17:40 Sheath removed intact; hemostasis achieved with Exoseal to the Left Femoral artery. 15:17:42 Procedure ended.(Physican Out) 15:18:55 Fluoroscopy time 03.40 minutes. 15:18:59 Flurop Dose total: 270 15:18:59 Fluoroscopy dose: 270 mGy 15:19:10 Dose Area Product 69693 mGy/cm. 15:19:13 Contrast amount:Isovue 300 27ml. 15:19:15 Maximum allowable dose exceeded? No. 15:19:16 Sharps counted by scrub and verified by R.N. 15:19:17 Insertion/operative site no bleeding no hematoma. 15:19:20 Post-op/insertion site Left Femoral artery dressed using a 4 x 4 and Tegaderm. 15:19:25 Post left femerol artery:stable, soft, clean and dry 15:19:26 Post Procedure Pulses reassessed and unchanged 15:19:28 Post-procedure physical assessment completed. ASA score P 3 - A patient with severe systemic disease as per Leandro Santa MD. 15:19:36 Post procedure rhythm: unchanged. 15:19:40 Estimated blood loss: 10 ml 15:19:41 Post procedure instruction explained to patient.Patient verbalizes understanding. 15:19:41 Patient needs reinforcement of post procedure teaching. 15:19:55 Procedure type changed to Cath procedure, Diagnostic procedure, Sedation Charges, Moderate Sedation up to 15 minutes, PCI procedure, PTCA, PTCA Initial 15:20:16 Procedure and supply charges have been captured, reviewed, submitted and are correct. 15:20:17 Procedure Complication : No complications 15:20:20 Vital chart was stopped 15:20:20 See physician's report for complete and final results. 15:20:22 Report given to PCU. 15:20:25 Patient transfered to PCU with Stretcher. 15:20:27 Procedure ended. 15:20:27 Full Disclosure recording stopped 15:20:36 ACC-PCI Only Patient was given prescriptions, or instructed by Leandro Santa MD to start/continue the following medications upon discharge: Aspirin, Plavix 15:20:37 End room use (Document Last) 15:21:23 ACT drawn and resulted at 200 seconds. (normal therapeutic range 180-240 seconds). 15:21:53 ACC Post-intervention ANDREA Flow is 3. Intervention Summary Intervention Notes Time ActionType Lesion and Equipment Action# Pressure Duration Attributes Used 15:14:37 Discard EUPHORA Balloon 2.5 x 12 Balloon ([id number]) 15:14:50 Inflate Prox CX EUPHORA 1 21 00:10 balloon 1.5 x 10 Balloon ([id number]) 15:15:17 Reinflate Prox CX EUPHORA 2 21 00:10 balloon 1.5 x 10 Balloon ([id number]) 15:16:39 Discard EUPHORA Balloon 2.5 x 12 Balloon ([id number]) Device Usage Item Name Manufacture Quantity Catalog Number Hospital Part Current Min imal Lot# / Charge Number Stock Stock Serial# Code ACIST Syringe Acist 1 39360 798050 970504 144733 20 (76363) Globel Direct Inc Bag Decanter Microtek 1 550477 20316 222574 5 () Medical Inc. Medline Cath Medline 1 [id number] 451430 07539 380067 5 Pack ([id number]) ACIST Hand Acist 1 64060 599829 775932 764661 5 Control Medical (34281) Systems Inc ACIST Acist 1 58425 110686 738629 641244 5 Manifold Medical (34076) Systems Inc Tegaderm 4 x 3M 1 1626W 274943 957318 967881 5 4 (1626W) EMERALD Guide Cardinal 1 502-455 287803 048239 947900 [address] [facility] (502455) CHOICE PT Drumright 1 [id number] 322453 20190524 751820 5 Extra Support Pidefarma J 300cm guide wire ([id number]) SHEATH 7FR Terumo 1 TWY802 752768 140430 932101 5 [place] (VNV032) INFLATOR Merit 1 IP2243 437565 658454 640767 15 Cramster Medical BasixCompak (KF9418) GUIDE 7FR EBU Medtronic 1 [id number] 667922 574092 389770 0 4.0 SH catheter ([id number]) SuperCross Vascular 1 5304 261351 694644 351395 5 Microcatheter Solutions 90 angle (5304) EUPHORA 2.5 x Medtronic 1 [id number] 600954 321205 275207 5 [id number] 12 Balloon ([id number]) EUPHORA 1.5 x Medtronic 1 [id number] 392965 922573 163689 5 [id number] 10 Balloon ([id number]) EXOSEAL 7Fr Cardinal 1 EX700 543114 032347 127501 5 (EX700) Health Signature Audit [place] Stage Time Signature Unsigned Intra-Procedure 07/22/2019 Harshad Siu 3:22:33 PM RT(R) Signatures Performing Physician : Signature : Leandro Santa MD Date : Time : Monitor : Harshad Siu RT Signature : Date : Time : Nurse : David Mckeon RN Signature : Date : Time : [place] [address] [place] [address]
[~2019-07-19 19:01] MED LIST changes: +ACETAMINOPHEN325 MG PO; +GAS-X125 M1 PO; +HYDROCODON-ACE1 EA10 PO; +INDERAL PO; +NITROQUICK0.4 MG SL; +VIBRAMYCIN50 MG PO; +ZOFRAN4 MG PO; +ZYVOX600 MG PO
[2019-07-19 19:40] LABS: BASOPHILS 0.4 % (0-2); EOSINOPHILS 4.4 % (0-7); HEMATOCRIT 34.4 % (36.0-48.0); HEMOGLOBIN 10.9 g/dL (12-16); IMMATURE GRANULOCYTES 0.1 % (0-5); LYMPHOCYTES 21.5 % (15-50); MCH 26.4 pg (26.0-34.0); MCHC 31.7 g/dL (31.0-37.0); MCV 83.3 fL (80.0-100.0); MEAN PLATELET VOLUME 9.3 fL (7.4-10.4); MONOCYTES 9.6 % (2-11); RBC 4.13 10x6/uL (4.00-5.40); RDW 15.9 % (11.5-14.5); WBC 7.1 10x3/uL (4.8-10.8)
[2019-07-19 20:03] LABS: PLATELET COUNT 202 10x3/uL (130-400)
[2019-07-19 20:06] LABS: ALBUMIN 2.9 g/dL (3.4-5.0); ALKALINE PHOSPHATASE 76 U/L (46-116); ALT (SGPT) 13 U/L (10-68); BILIRUBIN - TOTAL 0.33 mg/dL (0.2-1.3); CALC OSMOLALITY 289 mosm/kg (275-300); CALCIUM 9.3 mg/dL (8.5-10.1); CARBON DIOXIDE 21.4 mmol/L (21.0-32.0); CHLORIDE - SERUM 105 mmol/L (98-107); CREATININE - SERUM 4.6 mg/dL (0.6-1.3); GLUCOSE 92 mg/dL (74-106); POTASSIUM - SERUM 4.1 mmol/L (3.5-5.1); PROTEIN - SERUM 7.6 g/dL (6.4-8.2); SODIUM 139 mmol/L (136-145); UREA NITROGEN 45 mg/dL (7-18); eGFR NON AFRICAN AMERICAN 10 mL/min (90-120)
[2019-07-19 20:19] LABS: CKMB 0.7 U/L (0.0-3.6); CREATINE KINASE 31 UL (21-215); PRO BNP 5105 pg/mL (0-125); TROPONIN-I 0.035 ng/mL (0.000-0.060)
--- NOTE | 2019-07-19 23:52 | NUR ---
URINE SENT TO LAB
[2019-07-20 00:08] LABS: APPEARANCE CLOUDY (CLEAR); BILIRUBIN NEGATIVE (NEGATIVE); COLOR STRAW (YELLOW); GLUCOSE NEGATIVE (NEGATIVE); KETONE NEGATIVE (NEGATIVE); NITRITE POSITIVE (NEGATIVE); PROTEIN 3+ mg/dL (NEGATIVE); UROBILINOGEN NORMAL (NORMAL)
[2019-07-20 00:11] LABS: BACTERIA MODERATE /hpf (NONE SEEN); EPITHELIAL CELLS 0-5 /hpf (0-5); RED CELLS - URINE 0-5 /hpf (0-5)
--- NOTE | 2019-07-20 01:20 | NUR ---
PT ARRIVED TO FLOOR VIA STRECHER WITH ROGER GIPSON FROM ER. PT IS ALERT AND ORIENTED X4. PLACED ON TELEMETRY RUNNING 69 SINUS RYTHEM AT THIS TIME. NITROBID PATCH ON LEFT CHEST. RIGHT FOREARM IV SALINE LOCKED AT THIS TIME. SCD'S PLACED ON PT. NO S/S OF DISTRESS AT THIS TIME. SANDWHICH PROVIDED. BED LOW CALL LIGHT WITHIN REACH. BP-184/63 P-69 O2-99% 2L NC T-98.5. PT DENIES ANY PAIN OR FURTHER NEEDS AT THIS TIME. WILL CONTINUE TO MONITOR.
[2019-07-20] MEDS ORDERED: LIPITOR10 MG PO (01:37)
[2019-07-20] MEDS ORDERED: PROPRANOLOL (01:39)
[2019-07-20 03:33] VITALS: BP 184/63; BMI 44.0
[2019-07-20 04:00] VITALS: BP 157/67
[2019-07-20 05:27] LABS: BASOPHILS 0.5 % (0-2); EOSINOPHILS 4.9 % (0-7); HEMATOCRIT 32.4 % (36.0-48.0); HEMOGLOBIN 10.3 g/dL (12-16); IMMATURE GRANULOCYTES 0.3 % (0-5); MCH 26.5 pg (26.0-34.0); MCHC 31.8 g/dL (31.0-37.0); MCV 83.5 fL (80.0-100.0); MEAN PLATELET VOLUME 9.3 fL (7.4-10.4); MONOCYTES 9.8 % (2-11); NEUTROPHILS 60.5 % (40-80); PLATELET COUNT 205 10x3/uL (130-400); RBC 3.88 10x6/uL (4.00-5.40); RDW 16.1 % (11.5-14.5); WBC 6.1 10x3/uL (4.8-10.8)
--- NOTE | 2019-07-20 05:38 | NUR ---
I have reviewed this patient and I concur with the Shift Assessment completed by the Licensed Practical Nurse today this shift.
[2019-07-20 05:58] LABS: ALBUMIN 2.9 g/dL (3.4-5.0); ALKALINE PHOSPHATASE 72 U/L (46-116); ALT (SGPT) 12 U/L (10-68); BILIRUBIN - TOTAL 0.45 mg/dL (0.2-1.3); CALC OSMOLALITY 287 mosm/kg (275-300); CALCIUM 9.8 mg/dL (8.5-10.1); CARBON DIOXIDE 23.9 mmol/L (21.0-32.0); CHLORIDE - SERUM 104 mmol/L (98-107); CKMB 0.9 U/L (0.0-3.6); CREATINE KINASE 34 UL (21-215); CREATININE - SERUM 4.6 mg/dL (0.6-1.3); GLUCOSE 94 mg/dL (74-106); POTASSIUM - SERUM 3.7 mmol/L (3.5-5.1); PROTEIN - SERUM 7.8 g/dL (6.4-8.2); SODIUM 138 mmol/L (136-145); UREA NITROGEN 46 mg/dL (7-18); eGFR NON AFRICAN AMERICAN 10 mL/min (90-120)
[2019-07-20 09:07] VITALS: BP 184/65
--- NOTE | 2019-07-20 09:14 | NUR ---
TELEMETRY SR. NO C/O C/P NOTED. CALL LIGHT IN REACH. WILL MONITOR.
--- NOTE | 2019-07-20 10:06 | NUR ---
CONSENTS SIGNED FOR [facility]. WILL CONT. PLAN OF CARE.
--- NOTE | 2019-07-20 11:57 | NUR ---
PRE-OPS GIVEN, IN INTERNATIONAL MANAGER BY BED.
[2019-07-20 12:37] VITALS: Ht 160 cm; Wt 108.2 kg
--- NOTE | 2019-07-20 12:39 | NUR ---
BACK FROM BENZENE OPERATOR. VS WNL. RIGHT GROIN STABLE WITHOUT BLEEDING OR HEMATOMA NOTED. WILL MONITOR.
--- NOTE | 2019-07-20 15:30 | MORECARE ---
CASE MANAGEMENT DISCHARGE SUMMARY PATIENT: JAMIE BELL UNIT: [id number] ADM DATE: 07/19/19 AGE: 68 : [birth year] SEX: F ROOM/BED: D.[facility]4 AUTHOR: LINDA YUEN PHYSICIAN: REFERRING PHYSICIAN: LILY BARR MD DATE OF SERVICE: 07/20/19 Discharge Plan Patient Name: JAMIE BELL Facility: [facility]:[place] : 1950 Planned Disposition: Anticipated Discharge Date: Discharge Date: Expected LOS: Initial Reviewer: [email or web address] Initial Review Date: 07/20/2019 Generated: 07/20/19 4:29 pm Patient Name: JAMIE BELL Page 17920 at 1530 All edits/amendments must be made on the electronic document DICTATION DATE: 07/20/19 1529 SALESPERSON HOUSEHOLD APPLIANCES: SUSY 07/20/19 1529 RPT#: [id number] DC DATE: STATUS: ADM IN [facility] [address] [place] [address] END OF REPORT
--- NOTE | 2019-07-20 16:21 | NUR ---
BED REST UP. GROIN STABLE.
[2019-07-20 17:37] VITALS: BP 139/57
--- NOTE | 2019-07-20 19:00 | NUR ---
BEDSIDE REPORT RECEIVED. PATIENT IS ALERT AND ORIENTED. RESTING COMFORTABLY IN BED. RESPIRATIONS ARE EVEN AND UNLABORED. NO S/S OF DISTRESS. NO C/O PAIN. CALL LIGHT WITHIN REACH. WILL CPOC.
[2019-07-20 20:22] VITALS: BP 130/57
[2019-07-21] VITALS: BP 103/58
--- NOTE | 2019-07-21 07:15 | NUR ---
RECEIVED PT IN BED EYES CLOSED RESP UNLABORED SKIN W/D NAD NOTED
[2019-07-21 08:27] LABS: ANION GAP 13.6 mmol/L (8-16); CALCIUM 9.7 mg/dL (8.5-10.1); CREATININE - SERUM 4.8 mg/dL (0.6-1.3)
[2019-07-21 08:29] LABS: POTASSIUM - SERUM 4.6 mmol/L (3.5-5.1)
[2019-07-21 09:55] VITALS: BP 175/68
[2019-07-21 12:45] VITALS: BP 165/61
[2019-07-21 20:00] VITALS: BP 154/65
--- NOTE | 2019-07-21 20:00 | NUR ---
INITIAL ROUNDS AND ASSESSMENT COMPLETED. PT RESTING IN BED WITH NONLABORED RESPIRATIONS, O2 @ 2L/NC. SCDS IN PLACE. SALINE LOCK TO RFA. SR PER TELEMETRY. PT IS INCONTINENT OF URINE. CURRENTLY CLEAN/DRY. CALL LIGHT IN REACH.
--- NOTE | 2019-07-21 23:25 | NUR ---
NITRO PASTE APPLIED TO LEFT CHEST WALL. INSTRUCTED PT ON NPO AFTER MIDNIGHT FOR AM HEART CATH PER DR BARR.
[2019-07-22] VITALS (7 sets, daily range): BP systolic 137–168; BP diastolic 55–73
--- NOTE | 2019-07-22 07:15 | NUR ---
RECEIVED PT IN BED EYES CLOSED RESP UNLABORED SKIN W/D COLOR WNL NAD NOTED
--- NOTE | 2019-07-22 10:28 | NUR ---
Nutrition Follow-up: NPO; noted scheduled for CL PTCA today. Wt: 239# Last BM: 07/19 per chart Labs reviewed Meds reviewed Rec resume cardiac diet following procedure. RD following.
--- NOTE | 2019-07-22 10:47 | OP ---
PATIENT NAME: JAMIE BELL MEDICAL RECORD: [id number] :[birth year] LOCATION:D.M2 D.2114 ADMISSION DATE:07/19/19 SURGEON: LILY BARR MD DATE OF OPERATION: 07/20/2019 PROCEDURES: 1. PTCA stent LAD diagonal. 2. Left heart catheterization. 3. Selective coronary angiography. 4. Left ventriculogram. INDICATION: Unstable angina and coronary artery disease. Plavix noncompliance after previous PTCA stent. PROCEDURE IN DETAIL: After informed consent was obtained and after a detailed description of risks, benefits as well as alternative therapies, the patient elected to proceed with angiogram and angioplasty. FINDINGS: The patient underwent previous PTCA stent of her RCA and LAD diagonal. We found that when she got to the collaborating supervising physician that she had not been compliant with the Plavix until the last 3 days. Left ventriculogram was performed in standard 30-degree BOOTHE view reveals preserved cardiac wall motion, ejection fraction 50%. SELECTIVE CORONARY ANGIOGRAPHY: 1. Left main showed no significant angiographic disease. 2. Left anterior descending has a diagonal with a previously placed stent that is acutely thrombosed. 3. The circumflex has 95% stenosis proximally. 4. The right coronary artery has previously placed stents that are not thrombosed with no significant restenosis. No disease elsewise throughout the RCA or its branches. PTCA STENT OF THE LAD DIAGONAL: We were able to traverse this acute thrombosis with a 2.5 balloon. This yielded patency of the stented area; however, there was 90% stenosis after the stented area. This was addressed with a 2.0 x 12 mm Venkat stent. Result was 0% residual stenosis. OVERALL IMPRESSION: Successful percutaneous transluminal coronary angioplasty stent of the left anterior descending diagonal for acute thrombosis due to Plavix noncompliance from 100% initial stenosis to 0% residual. TRANSINT:[id number] Voice Confirmation ID: [id number] DOCUMENT ID: [id number] LILY BARR MD at 1047 CC: [id number] DICTATION DATE: 07/20/[address] CONTRACTOR: 07/20/19 1233 ADM IN [facility] [address] [place] [address]
--- NOTE | 2019-07-22 10:47 | HP ---
PATIENT: JAMIE BLACK MEDICAL RECORD: [id number] ACCOUNT: [id number] LOCATION:D. D.2114 : 46 ADMISSION DATE: 07/19/19 PCP: PASTORA SHORT DO HISTORY AND PHYSICAL EXAMINATION ADMITTING DIAGNOSES: 1. Unstable angina. 2. Coronary artery disease. 3. Recent percutaneous transluminal coronary angioplasty stent of right coronary artery and left anterior descending with concomitant disease and critical disease of left circumflex. 4. Chronic renal insufficiency. 5. Hypertension. 6. Hyperlipidemia. 7. Family history of premature coronary artery disease. HISTORY OF PRESENT ILLNESS: Mrs. Black has continued to have increasing episodes of chest pain, chest discomfort compatible with angina. She has critical disease of the left circumflex. She underwent recent PTCA stent of the LAD and RCA. She is on a long-acting nitrate, calcium-channel blockers, and not on a beta jerson secondary to resting bradycardia with heart rates in the 60s and with her renal insufficiency. Her blood pressure is not well controlled. She has a systolic blood pressure in the 150 to 180 range. PHYSICAL EXAMINATION: CONSTITUTIONAL/GENERAL APPEARANCE: Well nourished, well developed, appears stated age. EYES: Lids and conjunctivae noninjected. No discharge. No pallor. ENT: Lips within normal limit. No cyanosis. No pallor. NECK: Carotid arteries, bilateral normal upstroke. No bruits. No thrills. No jugular venous pressure or distention. CERVICAL LYMPH NODES: Nontender. Nonenlarged. THYROID: Not enlarged. No nodules. CARDIOVASCULAR: Precordial exam, nondisplaced. No heaves or pericardial thrills. Rate and rhythm, regular. Heart sounds, normal S1, normal S2. No S3, no gallop, no rub. Systolic murmur, not heard. Diastolic murmur, not heard. RESPIRATORY: Respiratory effort, unlabored. Normal curvature. No thoracic deformity. No chest wall tenderness. Percussion, resonant. Auscultation, clear. No wheezes, no rales, no rhonchi. ABDOMEN: Soft, nondistended, nontender. No abdominal pain, no vomiting and normal appetite. MUSCULOSKELETAL: No joint tenderness, normal gait, normal tone. SKIN: Warm and dry. OVERALL IMPRESSION: Class IV unstable angina. We will try to get better blood pressure control. We will change her amlodipine, change this to Procardia-XL. Hopefully, this will do a better job of controlling her blood pressure. We will proceed with repeat coronary angiography. Hopefully, transcatheter revascularization of the circumflex. TRANSINT:[id number] Voice Confirmation ID: [id number] DOCUMENT ID: [id number] HISTORY AND PHYSICAL [id number] JAMIE BLACK, LILY HARRISON at 1047 CC: [id number] DICTATION DATE: 07/20/19 0946 RECYCLING OPERATIONS MANAGER: 07/20/19 1010 ADM IN [facility] [address] [place] [id number]
--- NOTE | 2019-07-22 14:17 | NUR ---
TO DEPARTMENT OF NATURAL RESOURCES OFFICER VIA BED
--- NOTE | 2019-07-22 16:52 | MORECARE ---
CASE MANAGEMENT DISCHARGE SUMMARY PATIENT: JAMIE BELL UNIT: [id number] ADM DATE: 07/19/19 AGE: 68 : 48 SEX: F ROOM/BED: D.2114 AUTHOR: LINDA YUEN PHYSICIAN: REFERRING PHYSICIAN: LILY BARR MD DATE OF SERVICE: 07/22/19 Discharge Plan Patient Name: JAMIE BELL Facility: [facility]:[place] : 1950 Planned Disposition: Anticipated Discharge Date: Discharge Date: Expected LOS: Initial Reviewer: [email or web address] Initial Review Date: 07/20/2019 Generated: 07/22/19 5:51 pm External Providers External Provider: [employer] Next Contact Date: 07/22/2019 Service Request Date: Service Type: Resolution: Reviewer: Comments: Coverage Notice Reviewer: [id number] Woodruff Notice Issued Date-Time: 07/22/2019 16:25 Notice Type: Patient Choice Letter Notice Delivered To: Patient Relationship to Patient: Forensic Nurse Name: Delivery Method: HAND - Hand Delivered Yoanna Days: Prior Verbal Notification: Recipient Understood Notice: Yes Recipient Signature: Yes Med Rec Note Co-signed by Attending: Coverage Notice Comment: [facility] Reviewer: [id number] Woodruff Notice Issued Date-Time: 07/22/2019 16:25 Notice Type: IM Discharge Notice Notice Delivered To: Patient Relationship to Patient: Forensic Nurse Name: Delivery Method: HAND - Hand Delivered Yoanna Days: Prior Verbal Notification: Recipient Understood Notice: Yes Recipient Signature: Yes Med Rec Note Co-signed by Attending: Coverage Notice Comment: Last DP export: 07/20/19 2:30 p Patient Name: JAMIE BELL Page 78188 at 1652 All edits/amendments must be made on the electronic document DICTATION DATE: 07/22/191650 POULTRY HATCHERY MANAGER: SUSY 07/22/191650 RPT#: [id number] DC DATE: STATUS: ADM IN [facility] [address] [place] [address] END OF REPORT
--- NOTE | 2019-07-22 17:06 | MORECARE ---
CASE MANAGEMENT DISCHARGE SUMMARY PATIENT: JAMIE BELL UNIT: [id number] ADM DATE: 07/19/19 AGE: 68 : 48 SEX: F ROOM/BED: D.2114 AUTHOR: WILFRID,DOC PHYSICIAN: REFERRING PHYSICIAN: LILY BARR MD DATE OF SERVICE: 07/22/19 Discharge Plan Patient Name: JAMIE BELL Facility: [facility]:[place] : 1950 Planned Disposition: Home with Home Health Anticipated Discharge Date: 07/23/19 Discharge Date: Expected LOS: 4 Initial Reviewer: [email or web address] Initial Review Date: 07/20/2019 Generated: 07/22/19 6:06 pm DCPIA - Discharge Planning Initial Assessment Updated by CHRIS: Curt Woodruff on 07/22/19 5:04 pm * Is the patient Alert and Oriented? Yes * How many steps to enter\exit or inside your home? NONE * PCP DR. SHORT * Pharmacy [facility] IN [place] * Preadmission Environment Home with Family * ADLs Partial Dependent * Partial ADLs (Assistance needed) Ambulation Bathing Dressing Medication Management Toileting Transfers * Equipment Hospital Bed Oxygen Shower Chair * Other Equipment OXYGEN AT NIGHT AND PRN, PROVIDER - [facility] * List name and contact numbers for known caregivers / representatives who currently or will assist patient after discharge: HUGH BELL, DTR, * Verbal permission to speak to the caregivers and representatives has been obtained from the patient. N/A * Community resources currently utilized Home Health * Please name any agencies selected above. [facility] * Additional services required to return to the preadmission environment? No * Can the patient safely return to the preadmission environment? Yes * Has this patient been hospitalized within the prior 30 days at any hospital? Yes Coverage Notice Reviewer: [id number] Woodruff Notice Issued Date-Time: 07/22/2019 16:25 Notice Type: Patient Choice Letter Notice Delivered To: Patient Relationship to Patient: Traffic Division Commanding Officer Name: Delivery Method: HAND - Hand Delivered Yoanna Days: Prior Verbal Notification: Recipient Understood Notice: Yes Recipient Signature: Yes Med Rec Note Co-signed by Attending: Coverage Notice Comment: [facility] Reviewer: CHRIS Woodruff Notice Issued Date-Time: 07/22/2019 16:25 Notice Type: IM Discharge Notice Notice Delivered To: Patient Relationship to Patient: Traffic Division Commanding Officer Name: Delivery Method: HAND - Hand Delivered Yoanna Days: Prior Verbal Notification: Recipient Understood Notice: Yes Recipient Signature: Yes Med Rec Note Co-signed by Attending: Coverage Notice Comment: Last DP export: 07/22/19 3:52 p Patient Name: JAMIE BELL Page 16505 at 1706 All edits/amendments must be made on the electronic document DICTATION DATE: 07/22/191705 AMERICAN BOARD CERTIFIED ORTHOTIST: SUSY 07/22/191705 RPT#: [id number] DC DATE: STATUS: ADM IN [facility] [address] [place] [address] END OF REPORT
--- NOTE | 2019-07-22 17:13 | MORECARE ---
CASE MANAGEMENT DISCHARGE SUMMARY PATIENT: JAMIE BELL UNIT: [id number] ADM DATE: 07/19/19 AGE: 68 : 48 SEX: F ROOM/BED: D.3009 AUTHOR: WILFRID,DOC PHYSICIAN: REFERRING PHYSICIAN: LILY BARR MD DATE OF SERVICE: 07/22/19 Discharge Plan Patient Name: JAMIE BELL Facility: [facility]:[place] : 1950 Planned Disposition: Home with Home Health Anticipated Discharge Date: 07/23/19 Discharge Date: Expected LOS: 4 Initial Reviewer: [email or web address] Initial Review Date: 07/20/2019 Generated: 07/22/19 6:13 pm Comments DCP- Discharge Planning Updated by [email or web address]: Curt Woodruff on 07/22/19 4:[address] Patient Name: JAMIE BELL Admission Status: ER Accout number: [id number] Admission Date: 07-19-2019 : 1950 Admission Diagnosis:UNSTABLE ANGINA Attending: LIZZETTE BARR Current LOS: 3 Anticipated DC Date: 07-23-2019 Planned Disposition: Home with Home Health Primary Insurance: MEDICARE A & B PLANNED EXTERNAL PROVIDER: [facility] Discharge Planning Comments: CM MET WITH PT IN ROOM TO DISCUSS DISCHARGE PLANNING AND NEEDS. PT REPORTS LIVING AT HOME DEPENDENTLY WITH HER DAUGHTER WHO ASSISTS WITH MOST ARE OF PT IN THE HOME. PT HAS ALL NEEDED MEDICAL EQUIPMENT TO INCLUDE NIGHT TIME AND NEEDED OXYGEN FROM [facility]. PT HAS HOME HEALTH WITH [facility] THAT SHE WANTS RESUMED. CM DISCUSSED AVAILABILITY OF HOME HEALTH, REHAB SERVICES AND MEDICAL EQUIPMENT. PT DENIES DISCHARGE NEEDS, REPORTS HER DAUGHTER WILL PICK HER UP FOR DISCHARGE HOME. IMPORTANT MESSAGE FROM MEDICARE PROVIDED AND EXPLAINED. CHOICE FOR [facility] SIGNED.ROGER TAYLOR HAS NOTIFIED LILY AT [facility] OF PT'S PLANNED DISCHARGE TOMORROW AT [phone]. CM FAXED UPDATE TO [facility] AT [phone]. FOR DISCHARGE AND TO RESUME [facility], FAX DISCHARGE INFORMATION TO [facility] AT [phone]. Fuel Oil Truck Driver: Curt Woodruff DCPIA - Discharge Planning Initial Assessment Updated by [email or web address]: Curt Woodruff on 07/22/19 5:04 pm * Is the patient Alert and Oriented? Yes * How many steps to enter\exit or inside your home? NONE * PCP DR. SHORT * Pharmacy [facility]1] IN [place] * Preadmission Environment Home with Family * ADLs Partial Dependent * Partial ADLs (Assistance needed) Ambulation Bathing Dressing Medication Management Toileting Transfers * Equipment Hospital Bed Oxygen Shower Chair * Other Equipment OXYGEN AT NIGHT AND PRN, PROVIDER - [facility] * List name and contact numbers for known caregivers / representatives who currently or will assist patient after discharge: HUGH BELL, DTR, * Verbal permission to speak to the caregivers and representatives has been obtained from the patient. N/A * Community resources currently utilized Home Health * Please name any agencies selected above. [facility] * Additional services required to return to the preadmission environment? No * Can the patient safely return to the preadmission environment? Yes * Has this patient been hospitalized within the prior 30 days at any hospital? Yes Coverage Notice Reviewer: CHIRS Woodruff Notice Issued Date-Time: 07/22/2019 16:25 Notice Type: Patient Choice Letter Notice Delivered To: Patient Relationship to Patient: B2B Account Executive Name: Delivery Method: HAND - Hand Delivered Yoanna Days: Prior Verbal Notification: Recipient Understood Notice: Yes Recipient Signature: Yes Med Rec Note Co-signed by Attending: Coverage Notice Comment: [facility] Reviewer: CHRIS Woodruff Notice Issued Date-Time: 07/22/2019 16:25 Notice Type: IM Discharge Notice Notice Delivered To: Patient Relationship to Patient: B2B Account Executive Name: Delivery Method: HAND - Hand Delivered Yoanna Days: Prior Verbal Notification: Recipient Understood Notice: Yes Recipient Signature: Yes Med Rec Note Co-signed by Attending: Coverage Notice Comment: Last DP export: 07/22/19 4:06 p Patient Name: JAMIE BELL Page 29812 at 1713 All edits/amendments must be made on the electronic document DICTATION DATE: 07/22/191712 RES HABILITATION ASSISTANT: SUSY 07/22/191712 RPT#: [id number] DC DATE: STATUS: ADM IN [facility] [address] [place] [address] END OF REPORT
--- NOTE | 2019-07-22 20:00 | NUR ---
INITIAL ROUNDS AND ASSESSMENT COMPLETED. PT RESTING IN BED WITH NO DISTRESS. BEDREST COMPLETED S/P HEART CATH. LEFT GROIN INCISION WITH DRESSING C/D/I. PT EXPERIENCES EPISODES OF INCONTINENCE. CURRENTLY C/D/I. PIV TO RFA WITH NS @ 100ML/HR INFUSING. WILL SALINE LOCK UPON COMPLETION. CALL LIGHT IN REACH. CPOC.
--- NOTE | 2019-07-23 01:00 | NUR ---
RESTING IN BED WITH EYES CLOSED. NO DISTRESS. LEFT GROIN INCISION SITE C/D/I. CALL LIGHT IN REACH.
[2019-07-23 04:30] VITALS: BP 112/48
[2019-07-23 09:02] VITALS: BP 152/61
[2019-07-23] MEDS ORDERED: PROCARDIA XL30 MG PO (10:18)
--- NOTE | 2019-07-23 10:21 | NUR ---
SPOKE TO DR WILSON RE PT'S MEDICATIONS. TO CONTINUE PROCARDIA XL 90 MD DAILY, STOP NORVASC. OTHERWISE CONTINUE OTHER HEART MEDICATIONS.
--- NOTE | 2019-07-23 12:10 | NUR ---
IV ALEX TELEMETRY DCD. DC PLANS GIVEN. UNDERSTANDING VOICED. ESCORTED TO CAR BY W/C.
--- NOTE | 2019-07-23 13:24 | MORECARE ---
CASE MANAGEMENT DISCHARGE SUMMARY PATIENT: JAMIE BELL UNIT: [id number] ADM DATE: 07/19/19 AGE: 68 : 48 SEX: F ROOM/BED: D.3633 AUTHOR: WILFRID,DOC PHYSICIAN: REFERRING PHYSICIAN: LILY BARR MD DATE OF SERVICE: 07/23/19 Discharge Plan Patient Name: JAMIE BELL Facility: [facility]:[place] : 1950 Planned Disposition: Home with Home Health Anticipated Discharge Date: 07/23/19 Discharge Date: 07/23/2019 Expected LOS: 4 Initial Reviewer: [email or web address] Initial Review Date: 07/20/2019 Generated: 07/23/19 2:23 pm Comments DCP- Discharge Planning Updated by [email or web address]: Curt Woodruff on 07/22/19 4:[address] Patient Name: JAMIE BELL Admission Status: ER Accout number: [id number] Admission Date: 07-19-2019 : 1950 Admission Diagnosis:UNSTABLE ANGINA Attending: LIZZETTE BARR Current LOS: 3 Anticipated DC Date: 07-23-2019 Planned Disposition: Home with Home Health Primary Insurance: MEDICARE A & B PLANNED EXTERNAL PROVIDER: [facility] Discharge Planning Comments: KENDRA MET WITH PT IN ROOM TO DISCUSS DISCHARGE PLANNING AND NEEDS. PT REPORTS LIVING AT HOME DEPENDENTLY WITH HER DAUGHTER WHO ASSISTS WITH MOST ARE OF PT IN THE HOME. PT HAS ALL NEEDED MEDICAL EQUIPMENT TO INCLUDE NIGHT TIME AND NEEDED OXYGEN FROM [facility]. PT HAS HOME HEALTH WITH [facility] THAT SHE WANTS RESUMED. KENDRA DISCUSSED AVAILABILITY OF HOME HEALTH, REHAB SERVICES AND MEDICAL EQUIPMENT. PT DENIES DISCHARGE NEEDS, REPORTS HER DAUGHTER WILL PICK HER UP FOR DISCHARGE HOME. IMPORTANT MESSAGE FROM MEDICARE PROVIDED AND EXPLAINED. CHOICE FOR [facility] SIGNED.ROGER TAYLOR HAS NOTIFIED LILY AT [facility] OF PT'S PLANNED DISCHARGE TOMORROW AT [phone]. KENDRA FAXED UPDATE TO [facility] AT [phone]. FOR DISCHARGE AND TO RESUME [facility], FAX DISCHARGE INFORMATION TO [facility] AT [phone]. Mail Carrier And Clerk: Curt Woodruff DCPIA - Discharge Planning Initial Assessment Updated by [email or web address]: Curt Woodruff on 07/22/19 5:04 pm * Is the patient Alert and Oriented? Yes * How many steps to enter\exit or inside your home? NONE * PCP DR. SHORT * Pharmacy [facility] IN [place] * Preadmission Environment Home with Family * ADLs Partial Dependent * Partial ADLs (Assistance needed) Ambulation Bathing Dressing Medication Management Toileting Transfers * Equipment Hospital Bed Oxygen Shower Chair * Other Equipment OXYGEN AT NIGHT AND PRN, PROVIDER - [facility] * List name and contact numbers for known caregivers / representatives who currently or will assist patient after discharge: HUGH BELL, DTR, * Verbal permission to speak to the caregivers and representatives has been obtained from the patient. N/A * Community resources currently utilized Home Health * Please name any agencies selected above. [facility] * Additional services required to return to the preadmission environment? No * Can the patient safely return to the preadmission environment? Yes * Has this patient been hospitalized within the prior 30 days at any hospital? Yes Coverage Notice Reviewer: [id number] Woodruff Notice Issued Date-Time: 07/22/2019 16:25 Notice Type: Patient Choice Letter Notice Delivered To: Patient Relationship to Patient: Cylinder Batcher Name: Delivery Method: HAND - Hand Delivered Yoanna Days: Prior Verbal Notification: Recipient Understood Notice: Yes Recipient Signature: Yes Med Rec Note Co-signed by Attending: Coverage Notice Comment: [facility] Reviewer: [email or web address] Woodruff Notice Issued Date-Time: 07/22/2019 16:25 Notice Type: IM Discharge Notice Notice Delivered To: Patient Relationship to Patient: Cylinder Batcher Name: Delivery Method: HAND - Hand Delivered Yoanna Days: Prior Verbal Notification: Recipient Understood Notice: Yes Recipient Signature: Yes Med Rec Note Co-signed by Attending: Coverage Notice Comment: Last DP export: 07/22/19 4:13 p Patient Name: JAMIE BELL Page 10507 at 1324 All edits/amendments must be made on the electronic document DICTATION DATE: 07/23/19 1323 SHOE SHINER: SUSY 07/23/19 1323 RPT#: [id number] DC DATE:07/23/19 STATUS: DIS IN [place] [id number] [place] [address] END OF REPORT
--- NOTE | 2019-08-03 14:31 | OP ---
PATIENT NAME: JAMIE BELL MEDICAL RECORD: [id number] :[birth year] LOCATION:D.M2 D.2114 ADMISSION DATE:07/19/19 SURGEON: LILY BARR MD DATE OF OPERATION: 07/22/2019 PROCEDURES: 1. PTCA left circumflex. 2. Selective coronary angiography. INDICATION: Angina and coronary artery disease. PROCEDURE IN DETAIL: After informed consent was obtained and after a detailed description of the risks, benefits as well as alternative therapies, the patient elected to proceed with angiogram and angioplasty. The left femoral area was prepped and draped in normal sterile fashion. Left femoral artery was cannulated via modified Seldinger technique with placement of 7-[place] Islander sheath. All catheters exchanged through this sheath. FINDINGS: The left circumflex has 95% to 99% stenosis proximally. It is heavily calcified. We are able to cross this with a wire and with the assistance of a Quick-Cross catheter and it was a Choice PT extra support wire. We could only get a 1.5 balloon into the lesion. We had inflations with a 1.5 balloon to 21 atmospheres. No other balloon would cross this lesion. OVERALL IMPRESSION: Percutaneous transluminal coronary angioplasty of the circumflex only able to get a 1.5 balloon into the proximal lesion really made no discernible change in the lesion. This will have to be treated with medical management only. TRANSINT:[id number] Voice Confirmation ID: [id number] DOCUMENT ID: [id number] LILY BARR MD at 1431 CC: [id number] DICTATION DATE: 07/22/19 1522 HAND SPRING REPAIRER: 07/22/19 1839 DIS IN 07/23/19 [facility] [address] [id number]
--- NOTE | 2019-08-16 13:38 | DS ---
PATIENT:JAMIE BELL :[birth year] MEDICAL RECORD: [id number] DISCHARGE SUMMARY ADMISSION DATE: 07/19/19 DISCHARGE DATE: 07/23/19 DATE OF DISCHARGE: 07/23/2019 DIAGNOSES: 1. Angina. 2. Coronary artery disease. 3. Percutaneous transluminal coronary angioplasty stent left circumflex and left anterior descending this admission. HOSPITAL COURSE: Mrs. Bell presents with unstable angina, found to have disease of the LAD, diagonal and left circumflex, underwent successful PTCA stent of above territories, was discharged home with the addition of aspirin and Plavix to her medical regimen. Follow up with [facility] in 1 month. TRANSINT:[id number] Voice Confirmation ID: [id number] DOCUMENT ID: [id number] LILY BARR MD at 1338 CC: [id number] DICTATION DATE: 08/09/191919 MANAGER RETAIL SALES: 08/10/199 DIS IN 07/23/19 [facility] [address] [place] [address]
== END 2019-07-23 12:11 | disposition home or self-care (01) | DRG 247 ==
LOC: D.ER 19:01 → D.M2 23:23
PROVIDERS: Family Medicine; ADMIT Internal Medicine Interventional Cardiology; ATTEND Internal Medicine Interventional Cardiology
PROC: 4A023N7 Measurement of Cardiac Sampling and Pressure, Left Heart, Percutaneous Approach (ICD-10-PCS; 2019-07-20)
PROC: B2111ZZ Fluoroscopy of Multiple Coronary Arteries using Low Osmolar Contrast (ICD-10-PCS; 2019-07-20)
PROC: B2151ZZ Fluoroscopy of Left Heart using Low Osmolar Contrast (ICD-10-PCS; 2019-07-20)
PROC: 027034Z Dilation of Coronary Artery, One Artery with Drug-eluting Intraluminal Device, Percutaneous Approach (ICD-10-PCS; principal; 2019-07-20 11:16)
PROC: 02703ZZ Dilation of Coronary Artery, One Artery, Percutaneous Approach (ICD-10-PCS; 2019-07-22)
DX: I25.110 Atherosclerotic heart disease of native coronary artery with unstable angina pectoris (principal); I13.0 Hypertensive heart and chronic kidney disease with heart failure and stage 1 through stage 4 chronic kidney disease, or unspecified chronic kidney disease; Z91.14 Patient's other noncompliance with medication regimen; N18.9 Chronic kidney disease, unspecified; E78.5 Hyperlipidemia, unspecified; J44.9 Chronic obstructive pulmonary disease, unspecified; K21.9 Gastro-esophageal reflux disease without esophagitis; I50.9 Heart failure, unspecified; Z86.73 Personal history of transient ischemic attack (TIA), and cerebral infarction without residual deficits

== ENCOUNTER 2019-07-29 15:09 | Inpatient (IN) | payer MEDICARE ==
[~2019-07-29] VITALS: Ht 160 cm; Wt 112.5 kg
[~2019-07-29 15:09] MED LIST changes: +LIPITOR10 MG PO; +PROCARDIA XL30 MG PO; +PROPRANOLOL
[2019-07-29 15:48] LABS: BASOPHILS 0.1 % (0-2); EOSINOPHILS 0.1 % (0-7); HEMATOCRIT 29.9 % (36.0-48.0); HEMOGLOBIN 9.9 g/dL (12-16); IMMATURE GRANULOCYTES 0.3 % (0-5); LYMPHOCYTES 7.6 % (15-50); MCH 26.9 pg (26.0-34.0); MCHC 33.1 g/dL (31.0-37.0); MCV 81.3 fL (80.0-100.0); MEAN PLATELET VOLUME 9.3 fL (7.4-10.4); MONOCYTES 6.1 % (2-11); NEUTROPHILS 85.8 % (40-80); PLATELET COUNT 214 10x3/uL (130-400); RBC 3.68 10x6/uL (4.00-5.40); RDW 16.7 % (11.5-14.5); WBC 6.7 10x3/uL (4.8-10.8)
[2019-07-29 15:56] LABS: ALBUMIN 2.8 g/dL (3.4-5.0); ANION GAP 16.4 mmol/L (8-16); BILIRUBIN - TOTAL 0.41 mg/dL (0.2-1.3); CALCIUM 9.3 mg/dL (8.5-10.1); CARBON DIOXIDE 19.5 mmol/L (21.0-32.0); CREATININE - SERUM 4.2 mg/dL (0.6-1.3); POTASSIUM - SERUM 3.9 mmol/L (3.5-5.1); PROTEIN - SERUM 7.8 g/dL (6.4-8.2)
[2019-07-29 15:59] LABS: TROPONIN-I 0.057 ng/mL (0.000-0.060)
[2019-07-29 16:08] LABS: APPEARANCE HAZY (CLEAR); BACTERIA MANY /hpf (NONE SEEN); BILIRUBIN NEGATIVE (NEGATIVE); COLOR YELLOW (YELLOW); EPITHELIAL CELLS 0-5 /hpf (0-5); GLUCOSE NEGATIVE (NEGATIVE); KETONE NEGATIVE (NEGATIVE); NITRITE POSITIVE (NEGATIVE); PROTEIN 1+ mg/dL (NEGATIVE); SPECIFIC GRAVITY 1.015 (1.005-1.020); UROBILINOGEN NORMAL (NORMAL); WHITE CELLS - URINE 25-50 /hpf (0-5)
[2019-07-29 16:28] VITALS: BP 129/72
[2019-07-29 18:16] VITALS: BP 130/89
--- NOTE | 2019-07-29 19:27 | MORECARE ---
CASE MANAGEMENT DISCHARGE SUMMARY PATIENT: JAMIE BELL UNIT: [id number] ADM DATE: 07/29/19 AGE: 68 : 48 SEX: F ROOM/BED: D.1210 AUTHOR: LINDA YUEN PHYSICIAN: REFERRING PHYSICIAN: BETH RICKS MD DATE OF SERVICE: 07/29/19 Discharge Plan Patient Name: JAMIE BELL Facility: [facility]:[place] : 1950 Planned Disposition: Anticipated Discharge Date: Discharge Date: Expected LOS: Initial Reviewer: [id number] Initial Review Date: 07/29/2019 Generated: 07/29/19 8:26 pm Patient Name: JAMIE BELL Page [phone] at 7 All edits/amendments must be made on the electronic document DICTATION DATE: 07/29/191925 PLANT ELECTRICAL ENGINEER: SUSY 07/29/191925 RPT#: [id number] DC DATE: STATUS: ADM IN [facility] [address] [place] [address] END OF REPORT
--- NOTE | 2019-07-29 20:19 | NUR ---
RECEIVED PATIENT FROM ER NURSE VIA STRETCHER. PATIENT IS A/OX4, UP WITH ASSIST. NO S/S OF DISTRESS NOTED. RR EVEN AND UNLABORED ON ROOM AIR. PATIENT HAVE IV TO LT WRIST, PATENT, SL, DRSG C/D/I. PATIENT IS INCONTINENT OF URINE, SOILDED BRIEF REMOVED. PATIENT THEN URINATED AGAIN, SUMA CARE PROVIDED, LINENS CHANGED. QUICK START, MED REC, ADULT HX, SUICIDE SCREENING ALL COMPLETE. PATIENT DENIES FURTHER NEEDS AT THIS TIME. CL IN REACH, BED LOCKED AND LOWERED. WILL CTM.
[2019-07-29 23:04] VITALS: BP 125/70; BMI 44.0
[2019-07-29 23:14] LABS: CKMB 0.5 U/L (0.0-3.6); CREATINE KINASE 51 UL (21-215); TROPONIN-I 0.053 ng/mL (0.000-0.060)
--- NOTE | 2019-07-29 23:36 | NUR ---
ADMISSION ASSESSMENT COMPLETED. PT RESTING WITH NO DISTRESS. IVF INFUSING.
[2019-07-30 01:44] LABS: BASOPHILS 0.2 % (0-2); EOSINOPHILS 1.1 % (0-7); HEMOGLOBIN 9.4 g/dL (12-16); IMMATURE GRANULOCYTES 0.2 % (0-5); LYMPHOCYTES 16.1 % (15-50); MCH 26.5 pg (26.0-34.0); MCHC 32.4 g/dL (31.0-37.0); MCV 81.7 fL (80.0-100.0); MONOCYTES 10.4 % (2-11); PLATELET COUNT 191 10x3/uL (130-400); RBC 3.55 10x6/uL (4.00-5.40); RDW 16.6 % (11.5-14.5)
[2019-07-30 01:48] LABS: WBC 4.6 10x3/uL (4.8-10.8)
[2019-07-30 01:53] LABS: INR 1.1 (0.85-1.17); PROTIME 13.7 SECONDS (11.6-15.0)
[2019-07-30 01:54] LABS: APTT 34.9 SECONDS (22.8-39.4)
[2019-07-30 02:07] LABS: CALC OSMOLALITY 277 mosm/kg (275-300); CARBON DIOXIDE 20.4 mmol/L (21.0-32.0); CHLORIDE - SERUM 104 mmol/L (98-107); CKMB 0.4 U/L (0.0-3.6); CREATINE KINASE 37 UL (21-215); CREATININE - SERUM 4.1 mg/dL (0.6-1.3); GLUCOSE 87 mg/dL (74-106); MAGNESIUM - SERUM 1.5 mg/dL (1.8-2.4); PHOSPHOROUS 3.6 mg/dL (2.5-4.9); POTASSIUM - SERUM 3.5 mmol/L (3.5-5.1); PRO BNP 15889 pg/mL (0-125); SODIUM 135 mmol/L (136-145); TROPONIN-I 0.049 ng/mL (0.000-0.060); UREA NITROGEN 37 mg/dL (7-18); eGFR NON AFRICAN AMERICAN 11 mL/min (90-120)
--- NOTE | 2019-07-30 07:55 | NUR ---
PT SITTING UP RIGHT EATING BREAKFAST, REQUESTED COFFEE MATE, PROVIDED PROMPTLY. PT HAS 20 GAUGE IV TO THE LEFT WRIST WITH NORMAL SALINE @ 50 ML. PT IS ALERT AND ORIENTED. INCONTINENT OF BLADDER. TELEMETRY RUNNING SINUS RHYTHM AT 75.
--- NOTE | 2019-07-30 08:38 | NUR ---
ADMINISTERED MORNING MEDICATION AT THIS TIME, NO TROUBLE SWALLOWING. NO INSULIN NEEDED, BLOOD SUGAR OF 107. DENIES ANY NEEDS AT THIS TIME.
[2019-07-30 10:01] LABS: CKMB 0.3 U/L (0.0-3.6); CREATINE KINASE 36 UL (21-215); TROPONIN-I 0.045 ng/mL (0.000-0.060)
--- NOTE | 2019-07-30 10:45 | NUR ---
RESTING COMFORTABLY IN BED WITH EYES CLOSED, BREATHING EVEN AND UNLABORED. AROUSES EASILY TO VOICE. DENIES ANY NEEDS. WILL CTM.
[2019-07-30 11:14] VITALS: Ht 160 cm; Wt 112.5 kg
--- NOTE | 2019-07-30 11:30 | NUR ---
CHANGED PT BLUE MELBA PADS AND DRAW SHEET AFTER INCONTINENT EPISODE OF URINE. FRESH LINEN. DENIES OTHER NEEDS. WILL CTM.
--- NOTE | 2019-07-30 13:22 | NUR ---
DID NO ADINISTER INSULIN, BLOOD SUGAR OF 116. CHANGED PT BED FOR INCONT. EPISODE OF BLADDER. CLEAN SHEET, PINK PAD AND BLUE CHUCKS. DENIES ANY NEEDS AT THIS TIME. WILL CTM.
[2019-07-30 16:26] VITALS: BP 130/52
--- NOTE | 2019-07-30 16:29 | NUR ---
PT RESTING COMFORTABLY IN BED. ASSESSED VITALS, ALL ARE STABLE AT THIS TIME. ALSO CHAGNED BLUE BED PAD PER PT. DENIES ANY OTHER NEEDS AT THIS TIME. WILL CTM.
--- NOTE | 2019-07-30 17:41 | NUR ---
PT SITTING UPRIGHT IN BED EATING DINNER. DENIES ANY NEEDS AT THIS TIME. WILL CTM.
--- NOTE | 2019-07-30 18:23 | NUR ---
PT CHANGED FROM INCONT. EPDISODE OF BLADDER. DENIES ANY OTHER NEEDS. WILL CTM.
[2019-07-30 20:00] VITALS: BP 120/50
--- NOTE | 2019-07-30 20:30 | NUR ---
PT HAD BLADDER INCONTINENCE, BUT AWARE THAT SHE VOIDED. SUMA CARE PROVIDED, PARTIAL LINEN CHANGE. SCDs APPLIED. PT REPORTS PRN TYLENOL DID NOT ADEQUATELY DECREASE BACK PAIN. HEAT PACK APPLIED, PT VERBALIZED QUICK RELIEF. PT STATES SHE USES 2L O2 VIA NC QHS AT HOME WHILE SLEEPING. 2L HUMIDIFIED O2 APPLIED. PT DENIES FURTHER NEEDS, WILL CONTINUE TO MONITOR.
--- NOTE | 2019-07-30 21:30 | NUR ---
LEFT SIDE-LYING IN BED, A&O X 4. DENIES ANY N/V, REPORTS SHE HAS "SOME PAIN, BUT IT'S FROM A CHRONIC BACK INJURY." INFORMED PT THAT I CAN CHECK MAR FOR PRN PAIN MEDICATION, PT STATES SHE IS PRESCRIBED 10MG HYDROCODONE AT HOME TO TREAT PAIN. INFORMED OF PRN TYLENOL, PT STATES SHE DOUBTS TYLENOL WILL TOUCH IT, BUT SHE'LL TRY IT. MED REC UPDATED AND REVIEW BY SELF. ENCOURAGED PT TO CHANGE POSITIONS. NO FURTHER NEEDS AT THIS TIME.
[2019-07-30] MEDS ORDERED: MIRALAX17 GM PO (22:14)
[2019-07-31] VITALS: BP 136/71
--- NOTE | 2019-07-31 03:21 | NUR ---
I have reviewed this patient and I concur with the Shift Assessment completed by the Licensed Practical Nurse today this shift.
[2019-07-31 04:00] VITALS: BP 136/74
[2019-07-31 06:52] LABS: BASOPHILS 0.5 % (0-2); HEMOGLOBIN 9.3 g/dL (12-16); IMMATURE GRANULOCYTES 0.2 % (0-5); LYMPHOCYTES 25.5 % (15-50); MCH 26.3 pg (26.0-34.0); MCHC 32.1 g/dL (31.0-37.0); MCV 82.2 fL (80.0-100.0); MEAN PLATELET VOLUME 9.3 fL (7.4-10.4); MONOCYTES 12.8 % (2-11); PLATELET COUNT 187 10x3/uL (130-400); RBC 3.53 10x6/uL (4.00-5.40); RDW 16.8 % (11.5-14.5); WBC 4.3 10x3/uL (4.8-10.8)
[2019-07-31 07:16] LABS: ANION GAP 14.9 mmol/L (8-16); CALCIUM 8.6 mg/dL (8.5-10.1); CARBON DIOXIDE 20.6 mmol/L (21.0-32.0); CREATININE - SERUM 4.5 mg/dL (0.6-1.3); MAGNESIUM - SERUM 1.7 mg/dL (1.8-2.4); PHOSPHOROUS 4.2 mg/dL (2.5-4.9); POTASSIUM - SERUM 3.5 mmol/L (3.5-5.1)
[2019-07-31 07:26] VITALS: BP 130/67
--- NOTE | 2019-07-31 07:43 | NUR ---
PT AWAKE, ALERT AND ORIENTED. RR EVEN AND UNLABORED. DENIES NEEDS AT THIS TIME. WILL CONTINUE TO MONITOR.
--- NOTE | 2019-07-31 10:07 | NUR ---
I have reviewed this patient and I concur with the Shift Assessment completed by the Licensed Practical Nurse today this shift.
--- NOTE | 2019-07-31 13:30 | NUR ---
VOID X1. PT CLEANED AND PADS CHANGED.
--- NOTE | 2019-07-31 14:01 | NUR ---
LEON CATHETER INSERTED. PT TOLERATED WELL. REQUESTED STAT LOCK NOT TO BE APPLIED. YELLOW CLOUDY DRAINAGE NOTED.
[2019-07-31 17:47] VITALS: BP 164/60
[2019-07-31 18:53] VITALS: BP 182/71
--- NOTE | 2019-07-31 18:57 | NUR ---
PT C/O CP. CALLED [facility] FOR READING, 77 SINUS RHYTHM. EKG COMPLETE-SINUS RHYTHM WITH 1ST DEGREE BLOCK. NOTIFIED, NITRO GIVEN X1 WITH NO RELIEF @ 1856. NITRO GIVEN AGAIN @ 1910.
[2019-07-31 19:46] LABS: CKMB 0.8 U/L (0.0-3.6); CREATINE KINASE 38 UL (21-215); TROPONIN-I 0.028 ng/mL (0.000-0.060)
[2019-08-01] VITALS: BP 131/58
--- NOTE | 2019-08-01 01:30 | NUR ---
A&O SUPINE IN BED, WARM PACK APPLIED TO LOWERBACK. DENIES FURTHER NEEDS , VITAL SIGNS STABLE. WILL CONTINUE TO MONITOR.
[2019-08-01 04:00] VITALS: BP 142/64
--- NOTE | 2019-08-01 04:43 | NUR ---
I have reviewed this patient and I concur with the Shift Assessment completed by the Licensed Practical Nurse today this shift.
[2019-08-01 06:44] LABS: BASOPHILS 0.4 % (0-2); EOSINOPHILS 5.3 % (0-7); HEMATOCRIT 27.6 % (36.0-48.0); HEMOGLOBIN 8.8 g/dL (12-16); IMMATURE GRANULOCYTES 0.4 % (0-5); LYMPHOCYTES 26.7 % (15-50); MCH 26.2 pg (26.0-34.0); MCHC 31.9 g/dL (31.0-37.0); MCV 82.1 fL (80.0-100.0); MEAN PLATELET VOLUME 9.7 fL (7.4-10.4); MONOCYTES 12.8 % (2-11); NEUTROPHILS 54.4 % (40-80); RBC 3.36 10x6/uL (4.00-5.40); RDW 16.9 % (11.5-14.5)
[2019-08-01 06:50] LABS: PLATELET COUNT 248 10x3/uL (130-400); WBC 5.5 10x3/uL (4.8-10.8)
[2019-08-01 07:07] LABS: CARBON DIOXIDE 20.7 mmol/L (21.0-32.0); CREATININE - SERUM 4.4 mg/dL (0.6-1.3); MAGNESIUM - SERUM 1.6 mg/dL (1.8-2.4); PHOSPHOROUS 4.4 mg/dL (2.5-4.9); POTASSIUM - SERUM 3.7 mmol/L (3.5-5.1)
[2019-08-01 08:00] VITALS: BP 110/40
[2019-08-01 10:09] LABS: % SATURATION 27 % (15-55); IRON 40 ug/dl (35-150); TOTAL IRON BIND CAPACITY 144 ug/dl (260-445); UNSAT IRON BIND CAPACITY 104 ug/dl (150-375)
--- NOTE | 2019-08-01 10:16 | NUR ---
PT RESTING IN BED. NO SIGNS OF DISTRESS. NO IV AT THIS TIME. ON TELEMETRY 63 SR. HAS LEON PATENT NO KINKS. DENIES ANY FRUTHER NEED AT THIS TIME. CALL LIGHT IN REACH. BED LOW POSITION. NO FAMILY AT BEDSIDE.
[2019-08-01 11:00] VITALS: BP 134/48
--- NOTE | 2019-08-01 14:14 | NUR ---
Nutrition Follow-up: Patient reports okay appetite. Likes sous chef kitchen manager salads. Encouraged her to order food preferences as write-ins on menu. Pt acknowledges weight loss and states that she has been sick and on hospice. Diet: Cardiac PO intake not recorded in chart. Meds, labs, and skin assessment reviewed No BM recorded Wt: 248# (07/30/19)- stable RD Following
[2019-08-01 16:00] VITALS: BP 137/51
--- NOTE | 2019-08-01 17:23 | NUR ---
I have reviewed this patient and I concur with the Shift Assessment completed by the Licensed Practical Nurse today this shift.
--- NOTE | 2019-08-01 17:24 | MORECARE ---
CASE MANAGEMENT DISCHARGE SUMMARY PATIENT: JAMIE BELL UNIT: [id number] ADM DATE: 07/29/19 AGE: 68 : 48 SEX: F ROOM/BED: D.1210 AUTHOR: LINDA YUEN PHYSICIAN: REFERRING PHYSICIAN: BETH RICKS MD DATE OF SERVICE: 08/01/19 Discharge Plan Patient Name: JAMIE BELL Facility: [facility]:[place] : 1950 Planned Disposition: Anticipated Discharge Date: Discharge Date: Expected LOS: Initial Reviewer: [email or web address] Initial Review Date: 07/29/2019 Generated: 08/01/19 6:24 pm Last DP export: 07/29/19 6:27 pm Patient Name: JAMIE BELL Page 77170 at 1724 All edits/amendments must be made on the electronic document DICTATION DATE: 08/01/191722 PERMIT TECHNICIAN: SUSY 08/01/191722 RPT#: [id number] DC DATE: STATUS: ADM IN [facility] [address] [place] [address] END OF REPORT
--- NOTE | 2019-08-01 17:33 | MORECARE ---
CASE MANAGEMENT DISCHARGE SUMMARY PATIENT: JAMIE BELL UNIT: [id number] ADM DATE: 07/29/19 AGE: 68 : 48 SEX: F ROOM/BED: D.1210 AUTHOR: LINDA YUEN PHYSICIAN: REFERRING PHYSICIAN: BETH RICKS MD DATE OF SERVICE: 08/01/19 Discharge Plan Patient Name: JAMIE BELL Facility: [facility]:[place] : 1950 Planned Disposition: Home with Home Health Anticipated Discharge Date: Discharge Date: Expected LOS: Initial Reviewer: [email or web address] Initial Review Date: 07/29/2019 Generated: 08/01/19 6:32 pm DCPIA - Discharge Planning Initial Assessment Updated by [email or web address]: Queenie Hester on 08/01/19 5:25 pm * Is the patient Alert and Oriented? Yes * How many steps to enter\exit or inside your home? * PCP HAN * Pharmacy [facility] * Preadmission Environment Home Alone * ADLs Independent * Other Equipment HOSPITAL BED, W/C, BSC, HOME & PORTABLE 02, STATES SHE HAS NEBULIZER BUT IT QUIT WORKING. * List name and contact numbers for known caregivers / representatives who currently or will assist patient after discharge: RANDA BELL - DAUGHTER- [phone] * Verbal permission to speak to the caregivers and representatives has been obtained from the patient. Yes * Community resources currently utilized Home Health * Please name any agencies selected above. [facility] * Additional services required to return to the preadmission environment? No * Can the patient safely return to the preadmission environment? Yes * Has this patient been hospitalized within the prior 30 days at any hospital? No Last DP export: 08/01/19 4:24 pm Patient Name: JAMIE BELL Page [phone] at 1733 All edits/amendments must be made on the electronic document DICTATION DATE: 08/01/191731 COMMUNITY BOARD MEMBER: SUSY 08/01/191731 RPT#: [id number] DC DATE: STATUS: ADM IN [facility] [address] [place] [address] END OF REPORT
--- NOTE | 2019-08-01 17:41 | MORECARE ---
CASE MANAGEMENT DISCHARGE SUMMARY PATIENT: JAMIE BELL UNIT: [id number] ADM DATE: 07/29/19 AGE: 68 : 48 SEX: F ROOM/BED: D.1210 AUTHOR: WILFRID,DOC PHYSICIAN: REFERRING PHYSICIAN: BETH RICKS MD DATE OF SERVICE: 08/01/19 Discharge Plan Patient Name: JAMIE BELL Facility: [facility]:[place] : 1950 Planned Disposition: Home with Home Health Anticipated Discharge Date: Discharge Date: Expected LOS: Initial Reviewer: [email or web address] Initial Review Date: 07/29/2019 Generated: 08/01/19 6:40 pm DCP- Discharge Planning Updated by [email or web address]: Queenie Hester on 08/01/19 4:[address] Patient Name: JAMIE BELL Admission Status: ER Accout number: [id number] Admission Date: 07-29-2019 : 1950 Admission Diagnosis: Attending: BETH RICKS Current LOS: 3 Anticipated DC Date: Planned Disposition: Home with Home Health Primary Insurance: MEDICARE A & B Discharge Planning Comments: CM met with patient to complete initial dc planning assessment. CM educated patient on the CM role and verbal consent given by patient to complete assessment. Patient lives at home alone where she is independent with her care. Patient states that her daughter lives next door and grandson on other side of her. At discharge patient plans to return home and feels this is a safe discharge. CM discussed availability of home health, rehab services, and medical equipment. Patient has and home o2 and portable 02 ( unknown provider) Patient stated that she has a nebulizer but it isn't working. Patient plans to resume care with [facility] - [facility] signed.CM will continue to follow and will assist as needed with dc plans/needs. Guidance Adviser: Queenie Hester DCPIA - Discharge Planning Initial Assessment Updated by [email or web address]: Queenie Hester on 08/01/19 5:25 pm * Is the patient Alert and Oriented? Yes * How many steps to enter\exit or inside your home? * PCP [facility] * Pharm[facility] * Preadmission Environment Home Alone * ADLs Independent * Other Equipment HOSPITAL BED, W/C, BSC, HOME & PORTABLE 02, STATES SHE HAS NEBULIZER BUT IT QUIT WORKING. * List name and contact numbers for known caregivers / representatives who currently or will assist patient after discharge: RANDA BELL - DAUGHTER- [phone] * Verbal permission to speak to the caregivers and representatives has been obtained from the patient. Yes * Community resources currently utilized Home Health * Please name any agencies selected above. [facility] * Additional services required to return to the preadmission environment? No * Can the patient safely return to the preadmission environment? Yes * Has this patient been hospitalized within the prior 30 days at any hospital? No Last DP export: 08/01/19 4:33 pm Patient Name: JAMIE BELL Page [id number] at 1741 All edits/amendments must be made on the electronic document DICTATION DATE: 08/01/191739 SENIOR CISCO NETWORK ENGINEER: SUSY 08/01/191739 RPT#: [id number] DC DATE: STATUS: ADM IN [facility] [address] [place] [address] END OF REPORT
[2019-08-01 20:18] VITALS: BP 149/49
--- NOTE | 2019-08-01 20:26 | NUR ---
FAMILY MEMBER VISITING.
[2019-08-02] VITALS: BP 118/43
--- NOTE | 2019-08-02 02:44 | NUR ---
PT STATES:" ROOM TEMP IS LITTLE HOT." ADJUSTED ROOM TEMP, AND PT STATES SHE FEEL A LOT COMFORTABLE. CALL LIGHT IN REACH.
[2019-08-02 04:00] VITALS: BP 137/51
--- NOTE | 2019-08-02 04:51 | NUR ---
REST IN BED. CALL LIGHT IN REACH.
[2019-08-02 07:13] LABS: BASOPHILS 0.6 % (0-2); EOSINOPHILS 6.9 % (0-7); HEMOGLOBIN 8.9 g/dL (12-16); IMMATURE GRANULOCYTES 0.2 % (0-5); LYMPHOCYTES 31.5 % (15-50); MCH 26.4 pg (26.0-34.0); MCHC 31.8 g/dL (31.0-37.0); MCV 83.1 fL (80.0-100.0); MEAN PLATELET VOLUME 9.5 fL (7.4-10.4); MONOCYTES 11.5 % (2-11); NEUTROPHILS 49.3 % (40-80); PLATELET COUNT 269 10x3/uL (130-400); RBC 3.37 10x6/uL (4.00-5.40); RDW 17.2 % (11.5-14.5)
[2019-08-02 07:27] LABS: ANION GAP 13.5 mmol/L (8-16); CALCIUM 8.8 mg/dL (8.5-10.1); CARBON DIOXIDE 23.7 mmol/L (21.0-32.0); CREATININE - SERUM 4.5 mg/dL (0.6-1.3); PHOSPHOROUS 4.9 mg/dL (2.5-4.9); POTASSIUM - SERUM 4.2 mmol/L (3.5-5.1)
[2019-08-02 07:32] LABS: MAGNESIUM - SERUM 2.2 mg/dL (1.8-2.4)
--- NOTE | 2019-08-02 08:30 | NUR ---
PATIENT SITTING IN BED, AWAKE AND ALERT, ORIENTED X 4, WITH NO DISTRESS NOTED. DENIES ANY NEEDS AT THIS TIME. WILL CONTINUE TO MONITOR.
[2019-08-02] MEDS ORDERED: LEVOFLOXACIN500 MG PO (09:23)
[2019-08-02 10:04] VITALS: BP 151/56
--- NOTE | 2019-08-02 15:15 | NUR ---
PATIENT SIGNED DISCHARGE PAPERS REGARDING DISCHARGE INSTRUCTIONS AND APPOINTMENT OF HER OWN FREE-WILL AFTER HER GRANDSON ARRIVES TO PICK HER UP. DR. BUTT CALLED FOR ONE-TIME DOSE OF LEVAQUIN 500 MG PO.
--- NOTE | 2019-08-02 15:39 | MORECARE ---
CASE MANAGEMENT DISCHARGE SUMMARY PATIENT: JAMIE BELL UNIT: [id number] ADM DATE: 07/29/19 AGE: 68 : 48 SEX: F ROOM/BED: D.1210 AUTHOR: LINDA YUEN PHYSICIAN: REFERRING PHYSICIAN: BETH RICKS MD DATE OF SERVICE: 08/02/19 Discharge Plan Patient Name: JAMIE BELL Facility: [facility]:[place] : 1950 Planned Disposition: Home with Home Health Anticipated Discharge Date: 08/02/19 Discharge Date: Expected LOS: 4 Initial Reviewer: [email or web address] Initial Review Date: 07/29/2019 Generated: 08/02/19 4:39 pm Comments DCP- Discharge Planning Updated by [id number]: Ashley Hale on 08/02/19 2:[address] RECEIVED PHONE CALL FROM CHAN HESS RN FUN HOUSE ATTENDANT STATING THAT PATIENT HAS APPEALED HER DISCHARGE AND CASE ID# IS [id number]. I CALLED 1150 AND SPOKE WITH THE PATIENT'S NURSE ROGER CANNON, EXPLAINING THAT WE COULD NOT DISCHARGE HER UNTIL WE HAD DETERMINATION FROM [facility] OR THE PATIENT DEMANDED DISCHARGE AND THIS WAS WITNESSED AND DOCUMENTED. SHE THEN TOLD ME THAT THE PATIENT JUST SIGNED HER PAPERWORK AND HER GRANDSON WAS ON HIS WAY TO GET HER. I THANKED HER FOR HER TIME AND EXPLINED I WOULD CALL IN THE ROOM AND TALK WITH THE PATIENT. I CALLED 1210 AND SPOKE WITH THE PATIENT. SHE CONFIRMED THAT SHE NOW WANTS TO DISCHARGE AND SHE HAS SIGNED HER DISCHARGE PAPERS. SHE IS BEING PICKED UP BY HER GRANDSON "IN A FEW". I ASKED IF SHE WOULD MIND CALLING [facility] TO LET THEM KNOW THAT SHE HAS CHANGED HER MIND, AND SHE STATED THAT SHE DID NOT MIND CALLING THEM AT ALL. CALL PLACED BACK TO ROGER GILES CM FUN HOUSE ATTENDANT TO LET HER KNOW OF THE ABOVE. SHE HAS REQUESTED DOCUMENTATION AND STATED THAT SHE WILL CALL [facility] BACK AND LET THEM KNOW OF THIS. I PLACED A CALL TO ROGER CANNON, BEDSIDE NURSE AND REQUESTED THAT SHE PLEASE DOCUMENT THAT THE PATIENT WAS REQUESTING HER DISCHARGE AT THIS TIME OF HER OWN CHOICE, AND SHE STATED THAT SHE WOULD PUT IN A NOTE. DCP- Discharge Planning Updated by [email or web address]: Queenie Hester on 08/01/19 4:[address] Patient Name: JAMIE BELL Admission Status: ER Accout number: [id number] Admission Date: 07-29-2019 : 1950 Admission Diagnosis: Attending: BETH RICKS Current LOS: 3 Anticipated DC Date: Planned Disposition: Home with Home Health Primary Insurance: MEDICARE A & B Discharge Planning Comments: CM met with patient to complete initial dc planning assessment. CM educated patient on the CM role and verbal consent given by patient to complete assessment. Patient lives at home alone where she is independent with her care. Patient states that her daughter lives next door and grandson on other side of her. At discharge patient plans to return home and feels this is a safe discharge. CM discussed availability of home health, rehab services, and medical equipment. Patient has and home o2 and portable 02 ( unknown provider) Patient stated that she has a nebulizer but it isn't working. Patient plans to resume care with [facility] signed.CM will continue to follow and will assist as needed with dc plans/needs. Patternmaker Plastics: Queenie Hester DCPIA - Discharge Planning Initial Assessment Updated by [email or web address]: Queenie Hester on 08/01/19 5:25 pm * Is the patient Alert and Oriented? Yes * How many steps to enter\\exit or inside your home? * PCP [facility] * Pharm[facility] * Preadmission Environment Home Alone * ADLs Independent * Other Equipment HOSPITAL BED, W/C, BSC, HOME & PORTABLE 02, STATES SHE HAS NEBULIZER BUT IT QUIT WORKING. * List name and contact numbers for known caregivers / representatives who currently or will assist patient after discharge: RANDA BELL - DAUGHTER- [phone] * Verbal permission to speak to the caregivers and representatives has been obtained from the patient. Yes * Community resources currently utilized Home Health * Please name any agencies selected above. [facility] * Additional services required to return to the preadmission environment? No * Can the patient safely return to the preadmission environment? Yes * Has this patient been hospitalized within the prior 30 days at any hospital? No Last DP export: 08/01/19 4:41 pm Patient Name: JAMIE BELL Page [phone] at 1539 All edits/amendments must be made on the electronic document DICTATION DATE: 08/02/191538 COMMUNITY SERVICE PATROL OFFICER: SUSY 08/02/191538 RPT#: [id number] DC DATE: STATUS: ADM IN [facility] [address] [place] [address] END OF REPORT
--- NOTE | 2019-08-02 15:49 | MORECARE ---
CASE MANAGEMENT DISCHARGE SUMMARY PATIENT: JAMIE BELL UNIT: [id number] ADM DATE: 07/29/19 AGE: 68 : 48 SEX: F ROOM/BED: D.1210 AUTHOR: LINDA YUEN PHYSICIAN: REFERRING PHYSICIAN: BETH RICKS MD DATE OF SERVICE: 08/02/19 Discharge Plan Patient Name: JAMIE BELL Facility: [facility]:[place] : 1950 Planned Disposition: Home with Home Health Anticipated Discharge Date: 08/02/19 Discharge Date: Expected LOS: 4 Initial Reviewer: [email or web address] Initial Review Date: 07/29/2019 Generated: 08/02/19 4:49 pm Comments DCP- Discharge Planning Updated by [email or web address]: Ashley Hale on 08/02/19 2:[address] RECEIVED PHONE CALL FROM CHAN HESS RN DATA CENTER OPERATOR STATING THAT PATIENT HAS APPEALED HER DISCHARGE AND CASE ID# IS [id number]. I CALLED 1150 AND SPOKE WITH THE PATIENT'S NURSE ROGER CANNON, EXPLAINING THAT WE COULD NOT DISCHARGE HER UNTIL WE HAD DETERMINATION FROM [facility] OR THE PATIENT DEMANDED DISCHARGE AND THIS WAS WITNESSED AND DOCUMENTED. SHE THEN TOLD ME THAT THE PATIENT JUST SIGNED HER PAPERWORK AND HER GRANDSON WAS ON HIS WAY TO GET HER. I THANKED HER FOR HER TIME AND EXPLINED I WOULD CALL IN THE ROOM AND TALK WITH THE PATIENT. I CALLED 1210 AND SPOKE WITH THE PATIENT. SHE CONFIRMED THAT SHE NOW WANTS TO DISCHARGE AND SHE HAS SIGNED HER DISCHARGE PAPERS. SHE IS BEING PICKED UP BY HER GRANDSON "IN A FEW". I ASKED IF SHE WOULD MIND CALLING [facility] TO LET THEM KNOW THAT SHE HAS CHANGED HER MIND, AND SHE STATED THAT SHE DID NOT MIND CALLING THEM AT ALL. CALL PLACED BACK TO ROGER GILES CM DATA CENTER OPERATOR TO LET HER KNOW OF THE ABOVE. SHE HAS REQUESTED DOCUMENTATION AND STATED THAT SHE WILL CALL [facility] BACK AND LET THEM KNOW OF THIS. I PLACED A CALL TO ROGER CANNON, BEDSIDE NURSE AND REQUESTED THAT SHE PLEASE DOCUMENT THAT THE PATIENT WAS REQUESTING HER DISCHARGE AT THIS TIME OF HER OWN CHOICE, AND SHE STATED THAT SHE WOULD PUT IN A NOTE. DCP- Discharge Planning Updated by [email or web address]: Queenie Hester on 08/01/19 4:[address] Patient Name: JAMIE BELL Admission Status: ER Accout number: [id number] Admission Date: 07-29-2019 : 1950 Admission Diagnosis: Attending: BETH RICKS Current LOS: 3 Anticipated DC Date: Planned Disposition: Home with Home Health Primary Insurance: MEDICARE A & B Discharge Planning Comments: CM met with patient to complete initial dc planning assessment. CM educated patient on the CM role and verbal consent given by patient to complete assessment. Patient lives at home alone where she is independent with her care. Patient states that her daughter lives next door and grandson on other side of her. At discharge patient plans to return home and feels this is a safe discharge. CM discussed availability of home health, rehab services, and medical equipment. Patient has and home o2 and portable 02 ( unknown provider) Patient stated that she has a nebulizer but it isn't working. Patient plans to resume care with [facility] signed.CM will continue to follow and will assist as needed with dc plans/needs. Auto Polisher: Queenie Hester DCPIA - Discharge Planning Initial Assessment Updated by [email or web address]: Queenie Hester on 08/01/19 5:25 pm * Is the patient Alert and Oriented? Yes * How many steps to enter\\exit or inside your home? * PCP [facility] * [facility] * Preadmission Environment Home Alone * ADLs Independent * Other Equipment HOSPITAL BED, W/C, BSC, HOME & PORTABLE 02, STATES SHE HAS NEBULIZER BUT IT QUIT WORKING. * List name and contact numbers for known caregivers / representatives who currently or will assist patient after discharge: RANDA BELL - DAUGHTER- [phone] * Verbal permission to speak to the caregivers and representatives has been obtained from the patient. Yes * Community resources currently utilized Home Health * Please name any agencies selected above. [facility] * Additional services required to return to the preadmission environment? No * Can the patient safely return to the preadmission environment? Yes * Has this patient been hospitalized within the prior 30 days at any hospital? No External Providers External Provider: [id number] Next Contact Date: 08/02/2019 Service Request Date: Service Type: Resolution: Reviewer: Comments: Last DP export: 08/02/19 2:39 p Patient Name: JAMIE BELL Page 04251 at 1549 All edits/amendments must be made on the electronic document DICTATION DATE: 08/02/191548 SLEEPER CUTTER: SUSY 08/02/191548 RPT#: [id number] DC DATE: STATUS: ADM IN [facility] [address] [place] [address] END OF REPORT
--- NOTE | 2019-08-02 16:00 | MORECARE ---
CASE MANAGEMENT DISCHARGE SUMMARY PATIENT: JAMIE BELL UNIT: [id number] ADM DATE: 07/29/19 AGE: 68 : 48 SEX: F ROOM/BED: D.1210 AUTHOR: LINDA YUEN PHYSICIAN: REFERRING PHYSICIAN: BETH RICKS MD DATE OF SERVICE: 08/02/19 Discharge Plan Patient Name: JAMIE BELL Facility: [facility]:[place] : 1950 Planned Disposition: Home with Home Health Anticipated Discharge Date: 08/02/19 Discharge Date: Expected LOS: 4 Initial Reviewer: [email or web address] Initial Review Date: 07/29/2019 Generated: 08/02/19 5:00 pm Comments DCP- Discharge Planning Updated by [email or web address]: Curt Woodruff on 08/02/19 2:[address] Patient Name: JAMIE BELL Encounter No: [id number] : 1950 Primary Insurance: MEDICARE A & B Anticipated DC Date: 08-02-2019 Planned Disposition: Home with Home Health External Planned Provider: [facility] DCP follow-up note: CM RECEIVED DISCHARGE ORDER, CM MET WITH PT IN ROOM TO DISCUSS DISCHARGE NEEDS AND PLANNING. CM DISCUSSED AVAILABILITY OF HOME HEALTH, REHAB SERVICES AND MEDICAL EQUIPMENT. PT DENIES DISCHARGE NEEDS OTHER THAN RESUMPTION OF HOME HEALTH. PT DOES NOT KNOW HOW SHE IS GOING TO GET HOME YET. PT ASKED CM IF CM CAN ASSIST IN GETTING HER ANOTHER POWER WHEELCHAIR, CM EXPLAINED THAT PT WILL NEED TO SPEAK TO HER PRIMARY CARE PHYSICIAN. PT THINKS SHE WAS DISCHARGED HOME TOO SOON LAST TIME AND IS THINKING OF APPEALING HER DISCHARGE THIS TIME. CHOICE SIGNED FOR [facility]. IMPORTANT MESSAGE FROM MEDICARE PROVIDED AND EXPLAINED. CM NOTIFIED ODM MURRAY, GLOVE TURNER NURSE AND ROGER TAYLOR. CM CALLED [email or web address], , SPOKE TO MATIAS, REFERRAL PROVIDED, PT PLACED ON SCHEDULE FOR HOME HEALTH RESUMPTION. CM FAXED REFERRAL AND DISCHARGE INFORMATION TO [facility] [employer] AT [phone]. GLOVE TURNER NURSE NOTIFIED. Curt Woodruff, CASE MANAGEMENT DCP- Discharge Planning Updated by [email or web address]: Ashley Taylor on 08/02/19 2:[address] RECEIVED PHONE CALL FROM CHAN DESHAWN, RN CM CONTINUOUS IMPROVEMENT SPECIALIST STATING THAT PATIENT HAS APPEALED HER DISCHARGE AND CASE ID# IS [id number]. I CALLED 1150 AND SPOKE WITH THE PATIENT'S NURSE ROGER CANNON, EXPLAINING THAT WE COULD NOT DISCHARGE HER UNTIL WE HAD DETERMINATION FROM [facility] OR THE PATIENT DEMANDED DISCHARGE AND THIS WAS WITNESSED AND DOCUMENTED. SHE THEN TOLD ME THAT THE PATIENT JUST SIGNED HER PAPERWORK AND HER GRANDSON WAS ON HIS WAY TO GET HER. I THANKED HER FOR HER TIME AND EXPLINED I WOULD CALL IN THE ROOM AND TALK WITH THE PATIENT. I CALLED 1210 AND SPOKE WITH THE PATIENT. SHE CONFIRMED THAT SHE NOW WANTS TO DISCHARGE AND SHE HAS SIGNED HER DISCHARGE PAPERS. SHE IS BEING PICKED UP BY HER GRANDSON "IN A FEW". I ASKED IF SHE WOULD MIND CALLING [facility] TO LET THEM KNOW THAT SHE HAS CHANGED HER MIND, AND SHE STATED THAT SHE DID NOT MIND CALLING THEM AT ALL. CALL PLACED BACK TO ROGER GILES CM CONTINUOUS IMPROVEMENT SPECIALIST TO LET HER KNOW OF THE ABOVE. SHE HAS REQUESTED DOCUMENTATION AND STATED THAT SHE WILL CALL [facility] BACK AND LET THEM KNOW OF THIS. I PLACED A CALL TO ROGER CANNON, BEDSIDE NURSE AND REQUESTED THAT SHE PLEASE DOCUMENT THAT THE PATIENT WAS REQUESTING HER DISCHARGE AT THIS TIME OF HER OWN CHOICE, AND SHE STATED THAT SHE WOULD PUT IN A NOTE. DCP- Discharge Planning Updated by [email or web address]: Queenie Kacie on 08/01/19 4:[address] Patient Name: JAMIE BELL Admission Status: ER Accout number: [id number] Admission Date: 07-29-2019 : 1950 Admission Diagnosis: Attending: BETH RICKS Current LOS: 3 Anticipated DC Date: Planned Disposition: Home with Home Health Primary Insurance: MEDICARE A & B Discharge Planning Comments: CM met with patient to complete initial dc planning assessment. CM educated patient on the CM role and verbal consent given by patient to complete assessment. Patient lives at home alone where she is independent with her care. Patient states that her daughter lives next door and grandson on other side of her. At discharge patient plans to return home and feels this is a safe discharge. CM discussed availability of home health, rehab services, and medical equipment. Patient has and home o2 and portable 02 ( unknown provider) Patient stated that she has a nebulizer but it isn't working. Patient plans to resume care with [facility] signed.CM will continue to follow and will assist as needed with dc plans/needs. Silk Screen Printer Helper: Queenie Hester DCPIA - Discharge Planning Initial Assessment Updated by [id number]: Queenie Suttonr on 08/01/19 5:25 pm * Is the patient Alert and Oriented? Yes * How many steps to enter\\exit or inside your home? * PCP [facility] * Pharm[facility] * Preadmission Environment Home Alone * ADLs Independent * Other Equipment HOSPITAL BED, W/C, BSC, HOME & PORTABLE 02, STATES SHE HAS NEBULIZER BUT IT QUIT WORKING. * List name and contact numbers for known caregivers / representatives who currently or will assist patient after discharge: RANDA BELL - DAUGHTER- [phone] * Verbal permission to speak to the caregivers and representatives has been obtained from the patient. Yes * Community resources currently utilized Home Health * Please name any agencies selected above. [facility] - * Additional services required to return to the preadmission environment? No * Can the patient safely return to the preadmission environment? Yes * Has this patient been hospitalized within the prior 30 days at any hospital? No Coverage Notice Reviewer: [email or web address] Woodruff Notice Issued Date-Time: 08/02/2019 11:40 Notice Type: IM Discharge Notice Notice Delivered To: Patient Relationship to Patient: Deep Submergence Vehicle Crewmember Name: Delivery Method: HAND - Hand Delivered Yoanna Days: Prior Verbal Notification: Recipient Understood Notice: Yes Recipient Signature: Yes Med Rec Note Co-signed by Attending: Coverage Notice Comment: Reviewer: [email or web address] Joanne Woodruff Notice Issued Date-Time: 08/02/2019 11:40 Notice Type: Patient Choice Letter Notice Delivered To: Patient Relationship to Patient: Deep Submergence Vehicle Crewmember Name: Delivery Method: HAND - Hand Delivered Yoanna Days: Prior Verbal Notification: Recipient Understood Notice: Yes Recipient Signature: Yes Med Rec Note Co-signed by Attending: Coverage Notice Comment: [facility] Last DP export: 08/02/19 2:49 p Patient Name: JAMIE BELL Page [phone] at 1600 All edits/amendments must be made on the electronic document DICTATION DATE: 08/02/19 1600 LOCKSTITCH COAT JOINER: SUSY 08/02/19 1600 RPT#: [id number] DC DATE: STATUS: ADM IN [facility] [address] [facility] [place] [address] END OF REPORT
--- NOTE | 2019-08-02 16:27 | NUR ---
DISCHARGED HOME VIA W/C TO CAR WITH GRANDSON.
--- NOTE | 2019-08-02 17:26 | MORECARE ---
CASE MANAGEMENT DISCHARGE SUMMARY PATIENT: JAMIE BELL UNIT: [id number] ADM DATE: 07/29/19 AGE: 68 : [birth year] SEX: F ROOM/BED: D.1210 AUTHOR: LINDA YUEN PHYSICIAN: REFERRING PHYSICIAN: BETH RICKS MD DATE OF SERVICE: 08/02/19 Discharge Plan Patient Name: JAMIE BELL Facility: [facility]:[place] : 1950 Planned Disposition: Home with Home Health Anticipated Discharge Date: 08/02/19 Discharge Date: 08/02/2019 Expected LOS: 4 Initial Reviewer: [id number] Initial Review Date: 07/29/2019 Generated: 08/02/19 6:26 pm Comments DCP- Discharge Planning Updated by [id number]: Myra Mace on 08/02/19 4:[address] CM received a call from Elvi Taylor SV that she received a call from [facility] stating the patient had decided to drop her appeal for discharge. Myra Mace RN, [facility] DCP- Discharge Planning Updated by [email or web address]: Curt Woodruff on 08/02/19 2:[address] Patient Name: JAMIE BELL Encounter No: [id number] : 1950 Primary Insurance: MEDICARE A & B Anticipated DC Date: 08-02-2019 Planned Disposition: Home with Home Health External Planned Provider: [facility] DCP follow-up note: CM RECEIVED DISCHARGE ORDER, CM MET WITH PT IN ROOM TO DISCUSS DISCHARGE NEEDS AND PLANNING. CM DISCUSSED AVAILABILITY OF HOME HEALTH, REHAB SERVICES AND MEDICAL EQUIPMENT. PT DENIES DISCHARGE NEEDS OTHER THAN RESUMPTION OF HOME HEALTH. PT DOES NOT KNOW HOW SHE IS GOING TO GET HOME YET. PT ASKED CM IF CM CAN ASSIST IN GETTING HER ANOTHER POWER WHEELCHAIR, CM EXPLAINED THAT PT WILL NEED TO SPEAK TO HER PRIMARY CARE PHYSICIAN. PT THINKS SHE WAS DISCHARGED HOME TOO SOON LAST TIME AND IS THINKING OF APPEALING HER DISCHARGE THIS TIME. CHOICE SIGNED FOR [facility]. IMPORTANT MESSAGE FROM MEDICARE PROVIDED AND EXPLAINED. CM NOTIFIED DOM MURRAY, HOT DOG VENDOR NURSE AND RN KENDRA TAYLOR. CM CALLED [facility], , SPOKE TO MATIAS, REFERRAL PROVIDED, PT PLACED ON SCHEDULE FOR HOME HEALTH RESUMPTION. CM FAXED REFERRAL AND DISCHARGE INFORMATION TO [facility] AT [phone]. HOT DOG VENDOR NURSE NOTIFIED. Curt Woodruff, CASE MANAGEMENT DCP- Discharge Planning Updated by [id number]: Ashley Taylor on 08/02/19 2:[address] RECEIVED PHONE CALL FROM CHAN HESS RN CM PUBLIC HEALTH TECHNOLOGIST STATING THAT PATIENT HAS APPEALED HER DISCHARGE AND CASE ID# IS [id number]. I CALLED 1150 AND SPOKE WITH THE PATIENT'S NURSE ROGER CANNON, EXPLAINING THAT WE COULD NOT DISCHARGE HER UNTIL WE HAD DETERMINATION FROM [facility] OR THE PATIENT DEMANDED DISCHARGE AND THIS WAS WITNESSED AND DOCUMENTED. SHE THEN TOLD ME THAT THE PATIENT JUST SIGNED HER PAPERWORK AND HER GRANDSON WAS ON HIS WAY TO GET HER. I THANKED HER FOR HER TIME AND EXPLINED I WOULD CALL IN THE ROOM AND TALK WITH THE PATIENT. I CALLED 1210 AND SPOKE WITH THE PATIENT. SHE CONFIRMED THAT SHE NOW WANTS TO DISCHARGE AND SHE HAS SIGNED HER DISCHARGE PAPERS. SHE IS BEING PICKED UP BY HER GRANDSON "IN A FEW". I ASKED IF SHE WOULD MIND CALLING [facility] TO LET THEM KNOW THAT SHE HAS CHANGED HER MIND, AND SHE STATED THAT SHE DID NOT MIND CALLING THEM AT ALL. CALL PLACED BACK TO ROGER GILES CM PUBLIC HEALTH TECHNOLOGIST TO LET HER KNOW OF THE ABOVE. SHE HAS REQUESTED DOCUMENTATION AND STATED THAT SHE WILL CALL [facility] BACK AND LET THEM KNOW OF THIS. I PLACED A CALL TO ROGER CANNON, BEDSIDE NURSE AND REQUESTED THAT SHE PLEASE DOCUMENT THAT THE PATIENT WAS REQUESTING HER DISCHARGE AT THIS TIME OF HER OWN CHOICE, AND SHE STATED THAT SHE WOULD PUT IN A NOTE. DCP- Discharge Planning Updated by [id number]: Queenie Hester on 08/01/19 4:[address] Patient Name: JAMIE BELL Admission Status: ER Accout number: [id number] Admission Date: 07-29-2019 : 1950 Admission Diagnosis: Attending: BETH RICKS Current LOS: 3 Anticipated DC Date: Planned Disposition: Home with Home Health Primary Insurance: MEDICARE A & B Discharge Planning Comments: CM met with patient to complete initial dc planning assessment. CM educated patient on the CM role and verbal consent given by patient to complete assessment. Patient lives at home alone where she is independent with her care. Patient states that her daughter lives next door and grandson on other side of her. At discharge patient plans to return home and feels this is a safe discharge. CM discussed availability of home health, rehab services, and medical equipment. Patient has and home o2 and portable 02 ( unknown provider) Patient stated that she has a nebulizer but it isn't working. Patient plans to resume care with [facility] - LULA signed.CM will continue to follow and will assist as needed with dc plans/needs. Astronomy Instructor: Queenieshay Suttonr DCPIA - Discharge Planning Initial Assessment Updated by [email or web address]: Queenie Hester on 08/01/19 5:25 pm * Is the patient Alert and Oriented? Yes * How many steps to enter\\exit or inside your home? * PCP [facility] * Pharmacy [facility] * Preadmission Environment Home Alone * ADLs Independent * Other Equipment HOSPITAL BED, W/C, BSC, HOME & PORTABLE 02, STATES SHE HAS NEBULIZER BUT IT QUIT WORKING. * List name and contact numbers for known caregivers / representatives who currently or will assist patient after discharge: RANDA BELL - DAUGHTER- [phone] * Verbal permission to speak to the caregivers and representatives has been obtained from the patient. Yes * Community resources currently utilized Home Health * Please name any agencies selected above. [facility] * Additional services required to return to the preadmission environment? No * Can the patient safely return to the preadmission environment? Yes * Has this patient been hospitalized within the prior 30 days at any hospital? No Coverage Notice Reviewer: [id number] Joanne Woodruff Notice Issued Date-Time: 08/02/2019 11:40 Notice Type: IM Discharge Notice Notice Delivered To: Patient Relationship to Patient: Bung Dropper Name: Delivery Method: HAND - Hand Delivered Yoanna Days: Prior Verbal Notification: Recipient Understood Notice: Yes Recipient Signature: Yes Med Rec Note Co-signed by Attending: Coverage Notice Comment: Reviewer: [id number] Joanne Woodruff Notice Issued Date-Time: 08/02/2019 11:40 Notice Type: Patient Choice Letter Notice Delivered To: Patient Relationship to Patient: Bung Dropper Name: Delivery Method: HAND - Hand Delivered Yoanna Days: Prior Verbal Notification: Recipient Understood Notice: Yes Recipient Signature: Yes Med Rec Note Co-signed by Attending: Coverage Notice Comment: [facility] Last DP export: 08/02/19 3:00 p Patient Name: JAMIE BELL Page [phone] at 1726 All edits/amendments must be made on the electronic document DICTATION DATE: 08/02/191725 LAW PROFESSOR: SUSY 08/02/191725 RPT#: [id number] DC DATE:08/02/19 STATUS: DIS IN [facility] [address] [place] [address] END OF REPORT
[2019-08-07 16:07] LABS: AEROBE ID Final report (())
== END 2019-08-02 16:27 | disposition home health service (06) | DRG 690 ==
LOC: D.ER 15:09 → D.M3 18:37
PROVIDERS: Family Medicine; Internal Medicine Nephrology; ADMIT Family Medicine; ATTEND Family Medicine
DX: N39.0 Urinary tract infection, site not specified (principal); N17.9 Acute kidney failure, unspecified; I13.2 Hypertensive heart and chronic kidney disease with heart failure and with stage 5 chronic kidney disease, or end stage renal disease; N18.5 Chronic kidney disease, stage 5; E87.1 Hypo-osmolality and hyponatremia; I50.32 Chronic diastolic (congestive) heart failure; D63.1 Anemia in chronic kidney disease; J44.9 Chronic obstructive pulmonary disease, unspecified; K21.9 Gastro-esophageal reflux disease without esophagitis; M19.90 Unspecified osteoarthritis, unspecified site; I25.10 Atherosclerotic heart disease of native coronary artery without angina pectoris; N31.9 Neuromuscular dysfunction of bladder, unspecified; N13.30 Unspecified hydronephrosis; B96.1 Klebsiella pneumoniae [K. pneumoniae] as the cause of diseases classified elsewhere; Z86.73 Personal history of transient ischemic attack (TIA), and cerebral infarction without residual deficits

== ENCOUNTER → 2019-10-04 10:59 | Outpatient (CLI) | payer MEDICARE ==
[2019-07-30 11:14] VITALS: BMI 43.9
[~2019-10-04 10:59] MED LIST changes: +LEVOFLOXACIN500 MG PO
--- NOTE | 2019-10-04 13:00 | NUR ---
16 FR LEON INSERTED USING CITY SANITARIAN FOR NM PROCEDURE. PROCEDURE COMPLETE AT 1350 - LEON REMOVED WITH OUT DIFFICULTY
== END | disposition home or self-care (01) ==
LOC: D.NM 10-03 11:15
PROVIDERS: ATTEND Internal Medicine Nephrology
DX: N18.4 Chronic kidney disease, stage 4 (severe) (principal)

== ENCOUNTER 2020-02-02 11:50 | Inpatient (IN) | payer MEDICARE ==
[~2020-02-02] VITALS: Ht 160 cm; Wt 108.4 kg
--- NOTE | ~2020-02-02 | RHP ---
PATIENT: JAMIE BELL MEDICAL RECORD: [id number] ACCOUNT: [id number] LOCATION:[facility] : [birth year] ADMISSION DATE: 02/02/20 REHABILITATION HISTORY AND PHYSICAL EXAMINATION POST ADMISSION PHYSICIAN EXAMINATION DATE OF ADMISSION: 02/02/2020. ADMITTING DIAGNOSES: Critical illness myopathy. HISTORY OF PRESENT ILLNESS: The patient is a 69-year-old female patient who presented to the Emergency Room with 3-4 hours of intermittent chest pain. She had taken some nitroglycerin at home without much relief. She was given an aspirin. She had stents 6-7 months ago. She has not been on Plavix recently. The pain was radiating up to the left side of her neck. She had dyspnea on exertion. A 12-lead EKG showed a sinus rhythm with a first-degree AV block, but she did have an elevated troponin level. The patient was seen and evaluated by cardiology and nephrology. She was taken to the laboratory assistant on 01/27/2020 for successful PTCA to the right coronary artery for restenosis. Post-heart catheterization, she developed a hematoma to her right groin. CT showed this hematoma. 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 Her H&H had decreased. CV surgery was consulted. She was taken to the OR for right groin exploration and repair of this femoral artery. She has received 4 units packed red blood cells. She has been doing better since then. She had a Anirudh-Valdez drain at that time. She did grew out Citrobacter freundii from her urine, has been placed on a gram of Rocephin daily. She is very deconditioned. She needs to be out of bed. PT has been ordered. She has been living with her daughter and caregivers that come in and help out a few hours weekly, but could only ambulate house distances with a walker. She has got prolonged immobility, progressive generalized weakness, especially in her lower extremities affecting her tolerance to PT. She is very fatigued, has limited flexion, extension of her lower extremities. Proximal muscle strength is decreased. She is mod to max assist for ADLs, max assist for sit to stand and bed to chair. She is highly motivated to return home. COMORBIDITIES: Include [id number] renal failure, anemia, asthma, bradycardia, coronary artery disease, chest pain, chronic kidney disease, COPD, depression, difficulty walking, hard of hearing, hyponatremia, incontinence, and left-sided weakness. PAST MEDICAL HISTORY: Significant for CVA in the past. She has got a history of stents and angioplasty in the past, asthma, home O2 dependence, chronic back pain, depression, and arthritis. PAST SURGICAL HISTORY: Includes gallbladder, appendectomy, hysterectomy, hiatal hernia repair, cardiac stent placement, carpal tunnel, ganglion cyst removal, and urethral stent. ALLERGIES: PENICILLIN AND CLONIDINE. CURRENT MEDICATIONS: Include Floranex daily. She is on Rocephin 1 gram q.24 hours, Procardia-XL 90 mg daily. She is on Zemplar 2 mcg daily, Plavix 75 mg daily, citalopram 20 mg daily, atorvastatin 10 mg daily, aspirin chewable 81 mg daily, Protonix 40 mg daily, propranolol 10 mg b.i.d., Apresoline 50 mg t.i.d., simethicone 80 mg q.6 hours p.r.n., MiraLax 17 grams in 8 ounces of water daily, HISTORY AND PHYSICAL [id number] JAMIE BELL Nitrostat p.r.n., Sipsey 10/325 one tab q.8 hours p.r.n., and Tylenol p.r.n. HABITS: No alcohol or tobacco use. FAMILY HISTORY: Noncontributory. SOCIAL HISTORY: The patient hopes to return back home and get back to her prior level of functioning. REVIEW OF SYSTEMS: GENERAL: Does complain of weakness and fatigue. HEENT: Denies cold, cough, or congestion. CARDIOVASCULAR: Denies chest pain. PHYSICAL EXAMINATION: VITAL SIGNS: Stable, afebrile. GENERAL: A morbidly obese female in no acute distress, alert upon exam. HEENT: Normocephalic and atraumatic. Mucosa moist. NECK: Supple. No lymphadenopathy. LUNGS: Clear at this time. No wheezing or rales. HEART: Regular rate and rhythm. No murmurs, rubs or gallops. ABDOMEN: Soft, benign, and nondistended. Positive bowel sounds times 4. EXTREMITIES: No clubbing, cyanosis or edema. NEUROLOGIC: She does have noted proximal muscle weakness. LABORATORY DATA: Showed a white count 6.4, H&H 8.3 and 25.7 and platelet count was 234. Her chemistry shows sodium 139, potassium 4.2, BUN and creatinine of 37 and 4.0 and blood sugar is noted to be 91. ASSESSMENT: This is a 69-year-old female patient admitted to the rehab with a working diagnosis of critical illness myopathy. The patient has potential to make improvement. We instituted the following multiple disciplinary therapies including, but not limited to physical, occupational, respiratory, speech, nutritional services, prosthetics and orthotics. Given her complex medical conditions and risks for more complications, rehabilitation services cannot be provided at a low level of care such as a skilled nurse facility. PLAN: 1. Admit to [facility] re[facility] for intensive inpatient therapy to include the following disciplines: A. Physical therapy to improve gait, all transfer skills and bed mobility to a modified independent level. B. Occupational therapy to improve activities of daily living to a modified independent level. C. Case management to assist with discharge planning and placement options. D. Nutrition to assist with nutritional needs. E. Rehabilitation nursing to assist in monitoring the patient's underlying medical conditions and to assist with any type bowel or bladder management. 2. The patient's current medication and medical care will be continued. 3. The patient will be placed on standard fall precautions. 4. The patient's estimated length of stay is approximately 7-10 days. 5. We will discuss the patient during care team staff meeting this week. We will watch her H&H closely and repeat her lab work and see again in the a.m. TRANSINT:[id number] Voice Confirmation ID: [id number] DOCUMENT ID: [id number] HISTORY AND PHYSICAL [id number] JAMIE BELL notes whether there has been none or any medical/functional change since admission: - No change since prescreen. VISHAL attests patient continues to be appropriate for IRF: - Conitnues to be appropriate. DANIEL ALMAZAN MD CC: [id number] DICTATION DATE: 02/03/20901 FEDERAL APPELLATE CLERK: 02/03/20930 ADM IN [facility] [address] [id number]
[~2020-02-02 11:50] MED LIST changes: +HYDRALAZINE HCL50 MG PO; +MYRBETRIQ50 MG PO
--- NOTE | 2020-02-02 14:45 | NUR ---
ADMITTED TO REHAB/WC TO ROOM 1118B.ORIENTED TO ROOM AND SURROUNDINGS.CL IN REACH.
--- NOTE | 2020-02-02 15:47 | NUR ---
PATIENT ADMITTED TO REHAB FROM ACUTE FLOOR . HER PCP IS DR. SHORT . DME AT HOME IS WALKER, WHEELCHAIR. O2 AND A NEBULIZER. SHE IS A CLIENT OF [facility]. DISCHARGE PLANS ARE FOR HER TO RETURN HOME. WILL CONTINUE TO FOLLOW WITH PATIENT.
[2020-02-02 16:01] VITALS: BP 151/65; BMI 42.4
--- NOTE | 2020-02-02 18:23 | NUR ---
GREETED PATIENT AND INTRODUCED MYSELF HER NURSE. PATIENT IS LAYING IN BED RESTING QUIETLY AT THIS TIME. RESPIRATIONS EVEN. NO S/S OF DISTRESS. CALL LIGHT IN REACH. DENIES ANY FURTHER NEEDS AT THIS TIME.
--- NOTE | 2020-02-02 19:23 | NUR ---
GREETED PATIENT AND INTRODUCED MYSELF HER NURSE. PATIENT IS LAYING IN BED RESTING QUIETLY AT THIS TIME. RESPIRATIONS EVEN. NO S/S OF DISTRESS. CALL LIGHT IN REACH. DENIES ANY NEEDS AT THIS TIME.
[2020-02-02 19:30] VITALS: BP 131/64
--- NOTE | 2020-02-03 02:59 | NUR ---
PT. RESTING QUIETLY WITH EYES CLOSED. RESPIRATIONS EVEN. NO S/S OF DISTRESS. CALL LIGHT IN REACH.
--- NOTE | 2020-02-03 03:52 | NUR ---
PT. CLEANED OF INCONTINENT URINE. COMPLETED LINEN CHANGE. PT. REPOSITIONED FOR COMFORT. CALL LIGHT IN REACH. DENIES ANY FURTHER NEEDS.
[2020-02-03 08:26] VITALS: BP 143/62
--- NOTE | 2020-02-03 10:45 | NUR ---
SITTING IN WC IN ROOM WATCHING TV. DENIES NEEDS OR C/O. CALL LIGHT IN HAND
[2020-02-03 11:00] VITALS: BMI 42.3
--- NOTE | 2020-02-03 15:40 | NUR ---
LAYING IN BED WATCHING TV. DENIES NEEDS OR C/O. CALL LIGHT IN REACH
[2020-02-03 20:07] VITALS: BP 117/49
[2020-02-03 21:14] VITALS: BP 135/62
--- NOTE | 2020-02-03 21:52 | NUR ---
PATIENT RECEIVED SITTING UP IN BED WATCHING TV. ASSESSMENT & VITAL SIGNS DONE. DRESSINGS TO RIGHT GROIN C/D/I. PATIENT STATED "DR. ALMAZAN SAID DRESSING TO RIGHT SIDE OF NECK CAN BE TAKEN OFF TODAY." DRESSING REMOVED. THREE 2 CM SITES CLOSED, LEFT OPEN TO AIR. NO C/O PAIN OR DISTRESS. BED LOW. CALL LIGHT WITHIN REACH. WILL CONTINUE TO MONITOR.
--- NOTE | 2020-02-04 01:09 | NUR ---
PATIENT C/O PAIN LEVEL 7 TO RIGHT GROIN. NORCO 10/325 MG GIVEN. BED LOW. CALL LIGHT WITHIN REACH. WILL CONTINUE TO MONITOR.
--- NOTE | 2020-02-04 03:00 | NUR ---
I have reviewed this patient and I concur with the Shift Assessment completed by the Licensed Practical Nurse today this shift.
[2020-02-04 06:54] LABS: BASOPHILS 0.3 % (0-2); EOSINOPHILS 4.1 % (0-7); HEMATOCRIT 26.7 % (36.0-48.0); HEMOGLOBIN 8.6 g/dL (12-16); IMMATURE GRANULOCYTES 0.3 % (0-5); LYMPHOCYTES 25.5 % (15-50); MCH 28.4 pg (26.0-34.0); MCHC 32.2 g/dL (31.0-37.0); MCV 88.1 fL (80.0-100.0); MEAN PLATELET VOLUME 8.6 fL (7.4-10.4); MONOCYTES 13.2 % (2-11); NEUTROPHILS 56.6 % (40-80); PLATELET COUNT 271 10x3/uL (130-400); RBC 3.03 10x6/uL (4.00-5.40); RDW 14.2 % (11.5-14.5); WBC 6.2 10x3/uL (4.8-10.8)
[2020-02-04 07:12] LABS: CALCIUM 8.9 mg/dL (8.5-10.1); CARBON DIOXIDE 20.3 mmol/L (21.0-32.0); CREATININE - SERUM 4.1 mg/dL (0.6-1.3); POTASSIUM - SERUM 4.3 mmol/L (3.5-5.1)
[2020-02-04 08:00] VITALS: BP 108/62
--- NOTE | 2020-02-04 16:00 | NUR ---
PT RESTING IN BED WITH EYES OPEN CALL LIGHT IN REACH NO PROBLEMS WILL MONITER
--- NOTE | 2020-02-04 16:14 | NUR ---
RESTING QUIETLY IN BED . NO S/S PAIN OR NEEDS. CALL LIGHT IN REACH
--- NOTE | 2020-02-04 19:10 | NUR ---
PATIENT RECEIVED SITTING UP IN BED WATCHING TV. ASSESSMENT & VITAL SIGNS DONE. NO C/O PAIN OR DISTRESS. DRESSING C/D/I TO RIGHT GROIN. BED LOW. ALARM ON. CALL LIGHT WITHIN REACH. WILL CONTINUE TO MONITOR.
[2020-02-04 19:25] VITALS: BP 166/54
--- NOTE | 2020-02-05 00:10 | NUR ---
I have reviewed this patient and I concur with the Shift Assessment completed by the Licensed Practical Nurse today this shift.
--- NOTE | 2020-02-05 05:02 | NUR ---
PATIENT EYES CLOSED. RESPIRATIONS 18 & EVEN. BED LOW. CALL LIGHT WITHIN REACH. WILL CONTINUE TO MONITOR.
[2020-02-05 08:00] VITALS: BP 115/49
--- NOTE | 2020-02-05 08:00 | NUR ---
SITTING UP IN BED FOR BREAKFAST. DENIES NEEDS KOR C/O. STATES SHE IS STILL WEAK BUT THINKS SHE IS GETTING BETTER. CALL LIGHT IN REACH
--- NOTE | 2020-02-05 15:17 | NUR ---
LAYING IN BED WATCHING TV. DENIES NEEDS OR PAIN. DSG STILL IN PLACE TO RT GROIN. BRUISING IS HEALING TO RT GROIN. SHE IS INCONT OF B/B. CALL LIGHT IN REACH
--- NOTE | 2020-02-05 17:25 | NUR ---
SITTING UP IN BED EATING SUPPER AND WATCHING TV. DENIES NEEDS. CALL LIGHT IN REACH
--- NOTE | 2020-02-05 19:09 | NUR ---
GREETED PATIENT AND INTRODUCED MYSELF HER NURSE. PATIENT IS LAYING IN BED RESTING QUIETLY AT THIS TIME. PATIENT CLEANED OF INCONTINENT URINE AND REPOSITIONED FOR COMFORT. DENIES ANY FURTHER NEEDS AT THIS TIME. CALL LIGHT IN REACH ON PATIENTS RIGHT SIDE.
[2020-02-05 19:30] VITALS: BP 126/59
--- NOTE | 2020-02-05 21:12 | NUR ---
PT CLEANED OF INCONTINENT URINE. COMPLETED LINEN CHANGE. PT REPOSITIONED FOR COMFORT. CALL LIGHT WITHIN REACH LAYING ON PTS. CHEST.
[2020-02-05 21:41] VITALS: BP 132/61
--- NOTE | 2020-02-06 00:05 | NUR ---
PT AWAKE WATCHING TV AND EATING A SNACK. RESPIRATIONS EVEN. NO S/S OF DISTRESS. DENIES ANY NEEDS AT THIS TIME. CALL LIGHT WITHIN REACH LAYING ON PATIENTS CHEST.
--- NOTE | 2020-02-06 02:21 | NUR ---
PT AWAKE AND CLEANED OF INCONTINENT URINE. PT REPOSITIONED FOR COMFORT, CALL LIGHT WITHIN REACH ON RIGHT SIDE OF PATIENT. DENIES ANY FURTHER NEEDS AT THIS TIME.
--- NOTE | 2020-02-06 04:25 | NUR ---
PT AWAKE AND CLEANED OF INCONTINENT URINE. REPOSITIONED FOR COMFORT. CALL LIGHT WITHIN REACH OF PATIENT ON RIGHT SIDE. DENIES ANY FURTHER NEEDS.
[2020-02-06 06:29] LABS: BASOPHILS 0.4 % (0-2); EOSINOPHILS 4.2 % (0-7); HEMATOCRIT 26.7 % (36.0-48.0); HEMOGLOBIN 8.3 g/dL (12-16); IMMATURE GRANULOCYTES 0.4 % (0-5); LYMPHOCYTES 26.2 % (15-50); MCH 27.7 pg (26.0-34.0); MCHC 31.1 g/dL (31.0-37.0); MEAN PLATELET VOLUME 9.3 fL (7.4-10.4); NEUTROPHILS 56.8 % (40-80); RDW 14.2 % (11.5-14.5); WBC 5.5 10x3/uL (4.8-10.8)
[2020-02-06 06:33] LABS: PLATELET COUNT 332 10x3/uL (130-400)
--- NOTE | 2020-02-06 06:43 | NUR ---
PT CLEANED OF INCONTINENT URINE. REPOSITIONED FOR COMFORT. CALL LIGHT IN REACH ON RIGHT SIDE OF PATIENT. DENIES ANY FURTHER NEEDS AT THIS TIME.
[2020-02-06 07:20] LABS: ANION GAP 14.7 mmol/L (8-16); CALCIUM 8.7 mg/dL (8.5-10.1); CARBON DIOXIDE 23.5 mmol/L (21.0-32.0); CREATININE - SERUM 3.9 mg/dL (0.6-1.3); POTASSIUM - SERUM 4.2 mmol/L (3.5-5.1)
[2020-02-06 08:00] VITALS: BP 147/50
--- NOTE | 2020-02-06 08:25 | NUR ---
SITTING UP IN BED FOR BREAKFAST. DENIES INCREASED PAIN OR SOB. DSG TO RT GROIN IN PLACE. BRUISING TO RT GROIN LOOKS MORE YELLOW. PEDAL PULSES X2 NOTED. CALL LIGHT IN REACH
--- NOTE | 2020-02-06 14:12 | NUR ---
MIN ASST TO TRANSFER BACK TO BED FROM . INCONT OF URINE. INCISIONS TO RT GROIN HAVE NO S/S INFECTION. DSG INTACT. CALL LIGHT IN REACH
--- NOTE | 2020-02-06 14:34 | NUR ---
Nutrition Follow-up: Diet: Diabetic PO intake: ~56% average x last 9 meals; she reports a good appetite and had eaten most of her lunch tray. She declines getting oral nutrition supplements with meals. She states that she does not have diabetes. Last BM: none recorded since admit x 4 days now WT: 239# (02/03/20). Meds reviewed. Labs noted: BUN 38(H), Cr 3.9(H), GFR 12(L), Glu 86(WNL), Last noted A1c was 5.2%(WNL)- 07/30/19. Unable to see DM in PMHx. Consider liberalizing diet to regular per patient's request. RD following.
--- NOTE | 2020-02-06 17:00 | NUR ---
RESTING QUIETLY IN BED. NO S/S DISTRESS. CALL LIGHT IN HAND. BED IN LOWEST POSITION, SIDE RAILS UP X2.
--- NOTE | 2020-02-06 18:54 | NUR ---
GREETED PATIENT AND INTRODUCED MYSELF HER NURSE. PATIENT IS LAYING IN BED WATCHING TV AT THIS TIME. RESPIRATIONS EVEN. NO S/S OF DISTRESS. PATIENT CLEANED OF INCONTINENT URINE AND REPOSITIONED IN BED FOR COMFORT. CALL LIGHT WITHIN REACH ON RIGHT SIDE OF PATIENT.
[2020-02-06 19:30] VITALS: BP 134/56
--- NOTE | 2020-02-06 20:46 | NUR ---
PT CLEANED OF INCONTINENT URINE. REPOSITIONED FOR COMFORT. DENIES ANY FURTHER NEEDS AT THIS TIME. CALL LIGHT WITHIN REACH ON PATIENTS LAP.
--- NOTE | 2020-02-06 23:49 | NUR ---
PT AWAKE LAYING IN BED WATCHING TV. RESPIRATIONS EVEN. NO S/S OF DISTRESS. DENIES ANY NEEDS AT THIS TIME. CALL LIGHT WITHIN REACH LAYING ON PATIENTS CHEST.
[2020-02-07 08:00] VITALS: BP 169/54
--- NOTE | 2020-02-07 08:00 | NUR ---
SHIFT ASSMT COMPLETED.DRSG'S IN PLACE TO RT GROIN AND INNER THIGH.BREAKFAST TRAY GIVEN.CL IN REACH.
--- NOTE | 2020-02-07 12:00 | NUR ---
SITTING UP IN CHAIR.DENIES NEEDS.LUNCH GIVEN.
[2020-02-07 19:50] VITALS: BP 105/46
--- NOTE | 2020-02-07 20:00 | NUR ---
PATIENT RECEIVED SITTING UP IN BED WATCHING TV. ASSESSMENT & VITAL SIGNS DONE. NO C/O PAIN OR DISTRESS. BED LOW. CALL LIGHT WITHIN REACH. WILL CONTINUE TO MONITOR.
--- NOTE | 2020-02-07 22:37 | NUR ---
PATIENT C/O CHEST PAIN. VITAL SIGNS DONE. NITOSTAT 0.4 MG GIVEN. WILL CONTINUE TO MONITOR.
--- NOTE | 2020-02-07 22:37 | NUR ---
PATIENT USED CALL LIGHT FOR ASSIST. THIS NURSE WENT TO ROOM. PATIENT C/O CHEST PAIN LEVEL 8. PATIENT GIVEN NITROSTAT 0.4 MG UNDER TONGUE. VS 115/53 P 73 R 18 02 98%. WILL CONTINUE TO MONITOR.
--- NOTE | 2020-02-07 22:45 | NUR ---
ROSETTA GIVEN NITROSTAT 0.4 MG FOR LEFT JAW & CHEST PAIN. PAIN LEVEL 7. EKG TAKEN. THIS NURSE & CHARGE NURSE IN ROOM. WILL CONTINUE TO MONITOR.
--- NOTE | 2020-02-08 02:25 | NUR ---
I have reviewed this patient and I concur with the Shift Assessment completed by the Licensed Practical Nurse today this shift.
--- NOTE | 2020-02-08 04:03 | NUR ---
PATIENT EYES CLOSED. RESPIRATIONS 18 & EVEN. BED LOW. ALARM ON. CALL LIGHT WITHIN REACH. WILL CONTINUE TO MONITOR.
[2020-02-08 06:12] LABS: BASOPHILS 0.4 % (0-2); EOSINOPHILS 3.8 % (0-7); HEMATOCRIT 27.5 % (36.0-48.0); HEMOGLOBIN 8.4 g/dL (12-16); IMMATURE GRANULOCYTES 0.2 % (0-5); LYMPHOCYTES 27.4 % (15-50); MCH 27.9 pg (26.0-34.0); MCHC 30.5 g/dL (31.0-37.0); MEAN PLATELET VOLUME 9.3 fL (7.4-10.4); NEUTROPHILS 57.2 % (40-80); PLATELET COUNT 333 10x3/uL (130-400); RBC 3.01 10x6/uL (4.00-5.40); RDW 14.4 % (11.5-14.5); WBC 5.3 10x3/uL (4.8-10.8)
[2020-02-08 06:34] LABS: ANION GAP 16.6 mmol/L (8-16); CALCIUM 9.3 mg/dL (8.5-10.1); CARBON DIOXIDE 20.5 mmol/L (21.0-32.0); CREATININE - SERUM 3.7 mg/dL (0.6-1.3)
[2020-02-08 06:36] LABS: POTASSIUM - SERUM 5.1 mmol/L (3.5-5.1)
[2020-02-08 07:03] LABS: MCV 91.4 fL (80.0-100.0)
[2020-02-08 08:00] VITALS: BP 150/68
--- NOTE | 2020-02-08 08:00 | NUR ---
SHIFT ASSMT COMPLETED.HAD EPISODE OF NAUSEA LAST NIGHT AFTER HAVIG CHEST PAIN. LABS WAS NEG.DENIES DISCOMFORT THIS AM.BREAKFAST GIVEN.
--- NOTE | 2020-02-08 12:00 | NUR ---
HAD NAUSEA EARLIR THIS AM BUT RESOLVED WITH ZOFRAN GIVEN.
--- NOTE | 2020-02-08 13:59 | NUR ---
CARE TEAM MEETING: PATIENT PROGRESSING WELL IN THERAPY. HER TENATIVE DISCHARGE DATE IS 02/16/20. WILL CONTINUE TO FOLLOW WITH PATIENT.
--- NOTE | 2020-02-08 15:27 | NUR ---
Nutrition Follow-up: Diet: Diabetic PO intake: ~71% average x last 6 meals Last BM: none since admit x 6 days now. WT: 239# (02/03/20) Meds noted: miralax (PRN). Labs noted. Recommend bowel regimen to promote BM regularity and help preserve appetite. Will change to Regular diet as she does not have DM listed in PMHx and blood sugars have been WNL. RD following.
--- NOTE | 2020-02-09 03:49 | NUR ---
PT IN BED WATCHING REMAINS INCONTINENT OF BLADDER, FLUIDS AND CALL LIGHT W/IN REACH, NO NEEDS NOTED AT THIS TIME
[2020-02-09 08:00] VITALS: BP 147/50
--- NOTE | 2020-02-09 10:38 | NUR ---
HAS BEEN UP IN THERAPY THIS MORNING . STATES SHE FEELS BETTER THAN YESTERDAY. DENIES NEEDS OR C/O.
--- NOTE | 2020-02-09 17:23 | NUR ---
SITTING UP IN BED FOR SUPPER. DENIES NEEDS OR C/O. STILL INCONT OF B/B. BED IN LOWEST POSITION, SIDE RAILS X2 UP. CALL LIGHT IN REACH
[2020-02-09 19:35] VITALS: BP 141/46
--- NOTE | 2020-02-09 21:04 | NUR ---
PATIENT RECEIVED LAYING IN BED. NO CHEST PAINS. BED PAD CHANGED. INCONTINENT VOID. BED LOW. CALL LIGHT WITHIN REACH. WILL CONTINUE TO MONITOR.
--- NOTE | 2020-02-10 02:32 | NUR ---
PATIENT USED CALL LIGHT FOR ASSIST. PATIENT HAD VOID. COMPLETE BED CHANGE. PATIENT COMFORTABLE. BED LOW. CALL LIGHT WITHIN REACH. WILL CONTINUE TO MONITOR.
--- NOTE | 2020-02-10 03:47 | NUR ---
PATIENT EYES CLOSED. RESPIRATIONS 18 & EVEN. BED LOW. CALL LIGHT WITHIN REACH. WILL CONTINUE TO MONITOR.
--- NOTE | 2020-02-10 03:48 | NUR ---
I have reviewed this patient and I concur with the Shift Assessment completed by the Licensed Practical Nurse today this shift.
[2020-02-10 05:24] LABS: BASOPHILS 0.6 % (0-2); EOSINOPHILS 4.1 % (0-7); HEMATOCRIT 25.6 % (36.0-48.0); IMMATURE GRANULOCYTES 0.2 % (0-5); LYMPHOCYTES 22.8 % (15-50); MCH 28.7 pg (26.0-34.0); MCHC 31.3 g/dL (31.0-37.0); MCV 91.8 fL (80.0-100.0); MONOCYTES 10.4 % (2-11); NEUTROPHILS 61.9 % (40-80); PLATELET COUNT 327 10x3/uL (130-400); RBC 2.79 10x6/uL (4.00-5.40); RDW 14.4 % (11.5-14.5); WBC 6.4 10x3/uL (4.8-10.8)
[2020-02-10 05:39] LABS: ANION GAP 13.9 mmol/L (8-16); CALCIUM 8.8 mg/dL (8.5-10.1); CARBON DIOXIDE 22.7 mmol/L (21.0-32.0); CREATININE - SERUM 4.3 mg/dL (0.6-1.3); POTASSIUM - SERUM 4.6 mmol/L (3.5-5.1)
[2020-02-10 08:00] VITALS: BP 152/50
--- NOTE | 2020-02-10 08:30 | NUR ---
SITTING UP IN BED FOR BREAKFAST. DENIES SOB OR CHEST PAIN. DENIES NEEDS. FEEDS SELF AND ABLE TO MAKE NEEDS KNOWN. INCONT OF B/B. CALL LIGHT IN REACH
--- NOTE | 2020-02-10 16:00 | NUR ---
RESTING QUIETLY IN BED, WATCHING TV. SIDE RAILS UP X2. BED IN LOWEST POSITION. CALL LIGHT IN REACH
--- NOTE | 2020-02-10 19:30 | NUR ---
PATIENT RECEIVED LAYING IN BED WATCHING TV. PATIENT REQUEST TO BE CHANGED. OLD PADS REMOVED. PATIENT CLEANED & CALMOSEPTINE APPLIED TO BUTTOCKS & PERIAREA. NEW PADS UNDER PATIENT. VITAL SIGNS & ASSESSMENT DONE. BED LOW. CALL LIGHT WITHIN REACH. WILL CONTINUE TO MONITOR.
[2020-02-10 20:00] VITALS: BP 150/54
--- NOTE | 2020-02-11 03:25 | NUR ---
I have reviewed this patient and I concur with the Shift Assessment completed by the Licensed Practical Nurse today this shift.
--- NOTE | 2020-02-11 05:05 | NUR ---
PATIENT EYES CLOSED. RESPIRATIONS 18 & EVEN. BED LOW. SIDE TABLE & WATER WITHIN REACH. BED LOW. CALL LIGHT WITHIN REACH. WILL CONTINUE TO MONITOR.
[2020-02-11 08:00] VITALS: BP 154/64
--- NOTE | 2020-02-11 19:40 | NUR ---
PT IN BED WATCHING TV, NO NEEDS NOTED, FLUIDS AND CALL LIGHT WITHIN REACH, FALL PRECAUTIONS IN PLACE
[2020-02-12 03:20] VITALS: BP 148/54
[2020-02-12 08:00] VITALS: BP 156/54
--- NOTE | 2020-02-12 08:00 | NUR ---
SHIFT ASSMT COMPLETED.DENIES NEEDS.
--- NOTE | 2020-02-12 12:00 | NUR ---
EATING LUNCH.DENIES NEEDS.
--- NOTE | 2020-02-12 19:06 | NUR ---
PT IN BED TV ON, PT HAD WET AND SOILED SELF, CLEANED/CHANGED PT FLUIDS/CALL LIGHT WITHIN REACH, C/O SPLITING HEADACHE REQUESTED AND RECIEVED PRN TYLENOL
--- NOTE | 2020-02-13 00:01 | NUR ---
PT REQUESTED AND RECIEVED TYLENOL FOR BACK PAIN AT [id number]
[2020-02-13 00:40] VITALS: BP 109/52
[2020-02-13 07:10] LABS: ANION GAP 14.9 mmol/L (8-16); CALCIUM 8.6 mg/dL (8.5-10.1); CARBON DIOXIDE 21.2 mmol/L (21.0-32.0); CREATININE - SERUM 4.5 mg/dL (0.6-1.3); POTASSIUM - SERUM 4.1 mmol/L (3.5-5.1)
[2020-02-13 07:21] LABS: BASOPHILS 0.5 % (0-2); EOSINOPHILS 5.5 % (0-7); HEMATOCRIT 27.7 % (36.0-48.0); HEMOGLOBIN 8.1 g/dL (12-16); IMMATURE GRANULOCYTES 0.2 % (0-5); LYMPHOCYTES 28.7 % (15-50); MCH 27.5 pg (26.0-34.0); MCHC 29.2 g/dL (31.0-37.0); MCV 93.9 fL (80.0-100.0); MEAN PLATELET VOLUME 9.1 fL (7.4-10.4); MONOCYTES 11.1 % (2-11); PLATELET COUNT 360 10x3/uL (130-400); RBC 2.95 10x6/uL (4.00-5.40); RDW 14.7 % (11.5-14.5); WBC 5.7 10x3/uL (4.8-10.8)
[2020-02-13 08:00] VITALS: BP 148/49
--- NOTE | 2020-02-13 08:00 | NUR ---
SITTING UP IN BED FOR BREAKFAST. INCONT OF URINE. BED CHANGED. NO SKIN BREAKDOWN NOTED TO BUTTOCKS. HEALED INCISION TO RT GROIN. HEALING PUNCTURE HOLE WHERE DRAIN WAS PLACED ON RT GROIN/LEG AREA. DENIES INCREASING PAIN. CALL LIGHT IN REACH
--- NOTE | 2020-02-13 12:42 | NUR ---
Nutrition Follow Up Comments: Patient has been eating well. 77% avg for the past 10 meals. Patient present with CKD. Changed diet to AHA due to high BUN, high creatinine, and low GFR. Phos and potassium WNL. Diet: AHA PO intake: 77% avg x 10 meals No recent BM recorded since 01/27 Wt: 239 lbs on 02/02. No new wt Significant Meds: Colace, Zofran, Protonix, Miralax, Nystatin Significant Labs: BUN- 46(H), Creatinine- 4.5(H), GFR- 10(L) Continue current diet as tolerated Offer nutritional supplements if po intake is <50% avg for meals Constipation relief Clincial Dietitian to continue monitoring and following patient DHS
[2020-02-13 13:50] VITALS: Ht 160 cm; Wt 108.4 kg
--- NOTE | 2020-02-13 15:30 | NUR ---
LAYING DOWN RESTING QUIETLY. NO S/S DISTRESS. WATCHING TV. CALL LIGHT IN REACH
--- NOTE | 2020-02-13 16:00 | NUR ---
BLADDER SCAN DONE. IT SHOWED SCANT AMOUNTS OF URINE IN BLADDER.
[2020-02-13 19:29] VITALS: BP 163/66
--- NOTE | 2020-02-13 19:43 | NUR ---
PT IS RESTING IN BED WITH EYES OPEN. ALERT AND ORIENTED X 4. PT REQUESTED I BRING HER A PAIN PILL WITH HER HS MEDS. RIGHT GROIN BRUISING NOTED. NO NEEDS VOICED. SR'S ARE UP X 2 IN BED. CALL LIGHT AND BEDSIDE TABLE IN EASY REACH.
--- NOTE | 2020-02-14 01:58 | NUR ---
I have reviewed this patient and I concur with the Shift Assessment completed by the Licensed Practical Nurse today this shift.
[2020-02-14 04:54] LABS: % SATURATION 24 % (15-55); IRON 37 ug/dl (35-150); TOTAL IRON BIND CAPACITY 153 ug/dl (260-445); UNSAT IRON BIND CAPACITY 116 ug/dl (150-375)
--- NOTE | 2020-02-14 05:21 | NUR ---
PT RESTING IN BED WITH EYES OPEN. NO NEEDS VOICED.
[2020-02-14 08:18] VITALS: BP 143/50
--- NOTE | 2020-02-14 19:19 | NUR ---
GREETED PATIENT AND INTRODUCED MYSELF HER NURSE. PATIENT CLEANED OF INCONTINENT URINE. REPOSITIONED FOR COMFORT. RESPIRATIONS EVEN. NO S/S OF DISTRESS. PT. DENIES ANY FURTHER NEEDS AT THIS TIME. CALL LIGHT IN REACH.
[2020-02-14 20:00] VITALS: BP 123/60
[2020-02-15 05:51] LABS: ANION GAP 15.5 mmol/L (8-16); CALCIUM 8.8 mg/dL (8.5-10.1); CARBON DIOXIDE 20.2 mmol/L (21.0-32.0); CREATININE - SERUM 4.4 mg/dL (0.6-1.3); POTASSIUM - SERUM 4.7 mmol/L (3.5-5.1)
[2020-02-15 06:21] LABS: HEMATOCRIT 26.3 % (36.0-48.0); LYMPHOCYTES 22.8 % (15-50); MCHC 30.4 g/dL (31.0-37.0); MEAN PLATELET VOLUME 9.3 fL (7.4-10.4); NEUTROPHILS 63.8 % (40-80); PLATELET COUNT 299 10x3/uL (130-400); RBC 2.86 10x6/uL (4.00-5.40); RDW 14.2 % (11.5-14.5); WBC 5.7 10x3/uL (4.8-10.8)
[2020-02-15 08:00] VITALS: BP 150/53
--- NOTE | 2020-02-15 08:00 | NUR ---
SHIFT ASSMT COMPLETED.PLAN TO DC HOME TODAY.
--- NOTE | 2020-02-15 09:21 | NUR ---
PATIENT DISCHARGING HOME TODAY WITH FAMILY. [facility] WILL RESUME [facility] AT HOME. PATIENT WILL DISCUSS GETTING A NEW CHAIR WITH DR. SHORT. PATIENT CHOICE FORM AND IMFM FORM SIGNED, AND EXPLAINED. ONE GIVEN TO PATIENT AND ONE FILED IN CHART. DR. SHORT 03/02/2020 @ 9:45. DISCHARGE INSTRUCTIONS FAXED TO PCP, HOME HEALTH AND REVIEWED WITH PATIENT.
--- NOTE | 2020-02-15 12:00 | NUR ---
HERE.ORDERS FOR DISCHARGE HOME RECIEVED.
[2020-02-15] MEDS ORDERED: NIFEREX-150 CAP1 CA3 PO (12:18)
[2020-02-15] MEDS ORDERED: HYDROCODON-ACE1 EA10 PO (12:19)
--- NOTE | 2020-02-15 14:00 | NUR ---
DISCHARGED IN STABLE CONDITION.
== END 2020-02-15 14:10 | disposition home health service (06) | DRG 92 ==
LOC: D.REHAB 11:50
PROVIDERS: Internal Medicine; ADMIT Emergency Medicine; ATTEND Emergency Medicine
DX: G72.81 Critical illness myopathy (principal); N17.9 Acute kidney failure, unspecified; E87.1 Hypo-osmolality and hyponatremia; N18.9 Chronic kidney disease, unspecified; D64.9 Anemia, unspecified; J45.909 Unspecified asthma, uncomplicated; I25.10 Atherosclerotic heart disease of native coronary artery without angina pectoris; R07.9 Chest pain, unspecified; J44.9 Chronic obstructive pulmonary disease, unspecified; F32.9 Major depressive disorder, single episode, unspecified; R32 Unspecified urinary incontinence; R53.1 Weakness; F41.8 Other specified anxiety disorders

== ENCOUNTER 2020-02-18 17:16 | Inpatient (IN) | payer MEDICARE ==
[~2020-02-18] VITALS: Ht 160 cm; Wt 104.3 kg
[~2020-02-18 17:16] MED LIST changes: +NIFEREX-150 CAP1 CA3 PO
[2020-02-18 18:02] LABS: BASOPHILS 0.6 % (0-2); HEMATOCRIT 27.9 % (36.0-48.0); HEMOGLOBIN 8.4 g/dL (12-16); IMMATURE GRANULOCYTES 0.1 % (0-5); LYMPHOCYTES 10.7 % (15-50); MCH 27.8 pg (26.0-34.0); MCHC 30.1 g/dL (31.0-37.0); MCV 92.4 fL (80.0-100.0); MEAN PLATELET VOLUME 9.4 fL (7.4-10.4); NEUTROPHILS 77.6 % (40-80); PLATELET COUNT 269 10x3/uL (130-400); RBC 3.02 10x6/uL (4.00-5.40); WBC 7.9 10x3/uL (4.8-10.8)
[2020-02-18 18:14] LABS: CALC OSMOLALITY 279 mosm/kg (275-300); CALCIUM 9.5 mg/dL (8.5-10.1); CARBON DIOXIDE 18.1 mmol/L (21.0-32.0); CHLORIDE - SERUM 101 mmol/L (98-107); CREATININE - SERUM 4.7 mg/dL (0.6-1.3); GLUCOSE 122 mg/dL (74-106); POTASSIUM - SERUM 4.8 mmol/L (3.5-5.1); SODIUM 133 mmol/L (136-145); UREA NITROGEN 49 mg/dL (7-18); eGFR NON AFRICAN AMERICAN 10 mL/min (90-120)
[2020-02-18 18:35] LABS: ALBUMIN 2.9 g/dL (3.4-5.0); ALKALINE PHOSPHATASE 196 U/L (30-120); ALT (SGPT) 33 U/L (10-68); BILIRUBIN - TOTAL 0.47 mg/dL (0.2-1.3); CKMB 1.9 U/L (0.0-3.6); CREATINE KINASE 84 UL (21-215); FERRITIN 243 ng/mL (3-244); PROTEIN - SERUM 8.3 g/dL (6.4-8.2)
[2020-02-18 18:36] LABS: TROPONIN-I 1.763 ng/mL (0.000-0.060)
--- NOTE | 2020-02-18 18:36 | NUR ---
TROPONIN OF 1.763 CALLED BY [employer] TECH. NOTIFIED ANDREY DIAZ APN AND KARENA DURAN
[2020-02-18 18:45] LABS: C-REACTIVE PROTEIN 29.8 mg/dL (0.0-0.9)
[2020-02-18 19:23] LABS: ERYTHROCYTE SEDIMENTATION RATE 98 mm/hr (0-30)
--- NOTE | 2020-02-18 19:44 | NUR ---
PT LAYING IN BED. RESPIRATIONS ARE EVEN AND UNLABORED. NO DISTRESS NOTED. WILL CONTINUE TO MONITOR PATIENT.
--- NOTE | 2020-02-18 20:26 | NUR ---
CHANGED BRIEF AFTER IN AND OUT CATH. PT BECAME SOB WITH POSITION CHANGES.
[2020-02-18 20:38] LABS: BILIRUBIN NEGATIVE (NEGATIVE); GLUCOSE 50 mg/dL (NEGATIVE); KETONE NEGATIVE (NEGATIVE); NITRITE POSITIVE (NEGATIVE); SPECIFIC GRAVITY 1.015 (1.005-1.020); UROBILINOGEN NORMAL (NORMAL)
[2020-02-18 20:40] VITALS: BP 114/67
[2020-02-18 20:40] LABS: BACTERIA MANY /hpf (NEGATIVE); RED CELLS - URINE 0-5 /hpf (0-5); WHITE CELLS - URINE >50 /hpf (NEGATIVE)
--- NOTE | 2020-02-18 20:41 | NUR ---
RESPIRATORY AT BEDSIDE AT THIS TIME PERFORMING ABG. RESPRIATIONS ARE EVEN AND UNLABORED. NO DISTRESS NOTED. COLOR WNL FOR RACE. PT BEING MONITORED VIA PULSE OX, BP, AND CARDIAC MONITORING. PT IS WATCFHING TV AT THIS TIME, SITTING UP IN ED.
--- NOTE | 2020-02-18 20:51 | NUR ---
OXYGEN INCREASED TO 3L PER EDP EMILY
--- NOTE | 2020-02-18 22:00 | NUR ---
PT ARRIVED TO ROOM VIA BED. RR EVEN AND TACHYPENIC. NO S/SX OF DISTRESS OBSERVED AT THIS TIME. EDUCATED CALLL LIGHT FOR ASSISTANCE. PLACE IN DROPLET ISOLATION. WILL CTM.
[2020-02-18 22:35] VITALS: BP 132/68
[2020-02-18 23:40] VITALS: BP 132/68
[2020-02-19] VITALS (7 sets, daily range): BP systolic 117–163; BP diastolic 59–87
--- NOTE | 2020-02-19 02:05 | NUR ---
RECIEVED REPORT FROM ER. RN ARRIVED AND GAVE REPORT TO ONCOMMING.
[2020-02-19 06:01] LABS: BASOPHILS 0.3 % (0-2); EOSINOPHILS 2.3 % (0-7); HEMATOCRIT 27.7 % (36.0-48.0); HEMOGLOBIN 8.2 g/dL (12-16); IMMATURE GRANULOCYTES 0.1 % (0-5); LYMPHOCYTES 14.8 % (15-50); MCH 27.6 pg (26.0-34.0); MCHC 29.6 g/dL (31.0-37.0); MCV 93.3 fL (80.0-100.0); MEAN PLATELET VOLUME 9.6 fL (7.4-10.4); NEUTROPHILS 70.5 % (40-80); PLATELET COUNT 277 10x3/uL (130-400); RBC 2.97 10x6/uL (4.00-5.40); RDW 15.1 % (11.5-14.5); WBC 7.1 10x3/uL (4.8-10.8)
[2020-02-19 06:31] LABS: ALBUMIN 2.6 g/dL (3.4-5.0); ALKALINE PHOSPHATASE 163 U/L (30-120); BILIRUBIN - TOTAL 0.43 mg/dL (0.2-1.3); CALC OSMOLALITY 283 mosm/kg (275-300); CARBON DIOXIDE 19.4 mmol/L (21.0-32.0); CHLORIDE - SERUM 103 mmol/L (98-107); CKMB 1.7 U/L (0.0-3.6); CREATINE KINASE 63 UL (21-215); CREATININE - SERUM 4.5 mg/dL (0.6-1.3); GLUCOSE 95 mg/dL (74-106); POTASSIUM - SERUM 4.5 mmol/L (3.5-5.1); PROTEIN - SERUM 7.6 g/dL (6.4-8.2); SODIUM 135 mmol/L (136-145); UREA NITROGEN 52 mg/dL (7-18); eGFR NON AFRICAN AMERICAN 10 mL/min (90-120)
[2020-02-19 06:32] LABS: ALT (SGPT) 24 U/L (10-68); PRO BNP 50897 pg/mL (0-125)
[2020-02-19 06:33] LABS: TROPONIN-I 1.852 ng/mL (0.000-0.060)
--- NOTE | 2020-02-19 07:44 | NUR ---
0640- CALLED TO CHECK ON PATIENT IN 2129 SPO2 86% ON 5L, PT HAD BWEEN HAVING SOME LINES CHANGEDSO THAT MADE HER MORE SOB. [id number] INCREASED 6O 6L/M, SPO2 90%. BRS- DIMINISHED 0745- RECHECK PT, HER SPO2 REMAINS @ 90% ON 6L/M NO OTHER COMPLAINTS
--- NOTE | 2020-02-19 08:45 | NUR ---
PT RECEIVED ALERT AND AWAKE. PULSE OX 89% 6 LITERS. NO DISTRESS AT PRESENT BUT STATES DYSPNEA WHEN UP. RT ASSESSING ALSO AND AWARE OF PT CONDITION.
[2020-02-19 12:40] LABS: % SATURATION 9 % (15-55); IRON 14 ug/dl (35-150); TOTAL IRON BIND CAPACITY 145 ug/dl (260-445); UNSAT IRON BIND CAPACITY 131 ug/dl (150-375)
--- NOTE | 2020-02-19 17:14 | NUR ---
PT WITH IV INFILTRATED. REMOVED. UNABLE TO SITE NEW ONE, PT STATES HAD PICC LINE LAST VISIT. HOUSE SUP NOTIFIED, STATES WILL TRY WHEN ABLE TO COME OVER. PT INFORMED, EATING DINNER AT PRESENT.
--- NOTE | 2020-02-19 19:31 | NUR ---
RECEIVED UP IN BED IWTH EYES OPEN AND TV ON. ALERT AND ORTIENTED X4. REMAINS BEDFAST AT THIS TIME. O2@ 6 LITERS PER N/C O2 SAT 95%. NO IV AT THIS TIME. TELEMETRY IN PLACE. DENIES ANY NEEDS.
--- NOTE | 2020-02-20 00:51 | NUR ---
22GA IV STARTED TO LEFT HAND WITH ATTEMPTS X1.
[2020-02-20 05:56] LABS: ANION GAP 16.2 mmol/L (8-16); CALCIUM 9.2 mg/dL (8.5-10.1); CARBON DIOXIDE 19.1 mmol/L (21.0-32.0); CREATININE - SERUM 4.5 mg/dL (0.6-1.3); POTASSIUM - SERUM 4.3 mmol/L (3.5-5.1)
[2020-02-20 06:32] LABS: BASOPHILS 0.3 % (0-2); EOSINOPHILS 6.6 % (0-7); HEMATOCRIT 26.2 % (36.0-48.0); HEMOGLOBIN 7.8 g/dL (12-16); IMMATURE GRANULOCYTES 0.3 % (0-5); LYMPHOCYTES 14.4 % (15-50); MCH 27.4 pg (26.0-34.0); MCHC 29.8 g/dL (31.0-37.0); MCV 91.9 fL (80.0-100.0); MEAN PLATELET VOLUME 9.4 fL (7.4-10.4); MONOCYTES 12.8 % (2-11); NEUTROPHILS 65.6 % (40-80); PLATELET COUNT 250 10x3/uL (130-400); RBC 2.85 10x6/uL (4.00-5.40); RDW 14.9 % (11.5-14.5); WBC 6.2 10x3/uL (4.8-10.8)
--- NOTE | 2020-02-20 09:17 | NUR ---
PT RESTING IN BED A/O X4. PT 6L HF AT 94%. PT VSS. AFEBRILE AT THIS TIME. NO S/S OF DISTRESS. BED LOW CALL LIGHT WITHIN REACH. WILL CONTINUE TO MONITOR.
[2020-02-20 09:24] VITALS: BP 154/62
--- NOTE | 2020-02-20 09:42 | NUR ---
LAB UNABLE TO GET BLOOD AT THIS TIME. SENDING ANOTHER TECH.
[2020-02-20 10:17] VITALS: Ht 160 cm; Wt 104.3 kg
--- NOTE | 2020-02-20 11:33 | MORECARE ---
CASE MANAGEMENT DISCHARGE SUMMARY PATIENT: JAMIE BELL UNIT: [id number] ADM DATE: 02/18/20 AGE: 69 : 48 SEX: F ROOM/BED: D.2130 AUTHOR: LINDA YUEN PHYSICIAN: REFERRING PHYSICIAN: NEELIMA BUTT MD DATE OF SERVICE: 02/20/20 Discharge Plan Patient Name: JAMIE BELL Facility: [facility]:[place] : 1950 Planned Disposition: Home Anticipated Discharge Date: Discharge Date: Expected LOS: Initial Reviewer: [email or web address] Initial Review Date: 02/20/2020 Generated: 02/20/20 12:33 pm Patient Name: JAMIE BELL Page 49413 at 1133 All edits/amendments must be made on the electronic document DICTATION DATE: 02/20/20 113 SENIOR RADIATION THERAPIST: SUSY 02/20/20 1133 RPT#: [id number] DC DATE: STATUS: ADM IN [facility] [address] [place] [address] END OF REPORT
--- NOTE | 2020-02-20 11:41 | NUR ---
I have reviewed this patient and I concur with the Shift Assessment completed by the Licensed Practical Nurse today this shift.
--- NOTE | 2020-02-20 11:42 | NUR ---
FIRST UNIT OF BLOOD STARTED ON PT AT THIS TIME. VSS. NO S/S OF DISTRESS. AFEBRILE. BED LOW CALL LIGHT WITHIN REACH WILL CONTUINUE TO MONITOR.
--- NOTE | 2020-02-20 13:58 | MORECARE ---
CASE MANAGEMENT DISCHARGE SUMMARY PATIENT: JAMEI BELL UNIT: [id number] ADM DATE: 02/18/20 AGE: 69 : 48 SEX: F ROOM/BED: D.2130 AUTHOR: LINDA YUEN PHYSICIAN: REFERRING PHYSICIAN: NEELIMA BUTT MD DATE OF SERVICE: 02/20/20 Discharge Plan Patient Name: JAMIE BELL Facility: [facility]:[place] : 1950 Planned Disposition: Home Anticipated Discharge Date: Discharge Date: Expected LOS: Initial Reviewer: [id number] Initial Review Date: 02/20/2020 Generated: 02/20/20 2:57 pm Last DP export: 02/20/20 10:33 a Patient Name: JAMIE BELL Page 13091 at 1358 All edits/amendments must be made on the electronic document DICTATION DATE: 02/20/20 1357 TEACHER ADULT EDUCATION: SUSY 02/20/20 1357 RPT#: [id number] DC DATE: STATUS: ADM IN [facility] [address] [place] [address] END OF REPORT
--- NOTE | 2020-02-20 14:05 | MORECARE ---
CASE MANAGEMENT DISCHARGE SUMMARY PATIENT: JAMIE BELL UNIT: [id number] ADM DATE: 02/18/20 AGE: 69 : 48 SEX: F ROOM/BED: D.2130 AUTHOR: LINDA YUEN PHYSICIAN: REFERRING PHYSICIAN: NEELIMA BUTT MD DATE OF SERVICE: 02/20/20 Discharge Plan Patient Name: JAMIE BELL Facility: [facility]:[place] : 1950 Planned Disposition: Home Anticipated Discharge Date: Discharge Date: Expected LOS: Initial Reviewer: [email or web address] Initial Review Date: 02/20/2020 Generated: 02/20/20 3:04 pm DCPIA - Discharge Planning Initial Assessment Updated by [email or web address]: Curt Woodruff on 02/20/20 2:01 pm * Is the patient Alert and Oriented? Yes * How many steps to enter\exit or inside your home? RAMP * PCP DR. SHORT * Pharmacy [facility] IN [place] * Preadmission Environment Home Alone * ADLs Independent * Equipment Oxygen Walker Wheelchair * Other Equipment [facility] OR NO PREFERENCE FOR MEDICAL EQUIPMENT PROVIDER * List name and contact numbers for known caregivers / representatives who currently or will assist patient after discharge: RANDA SOW, DTR, * Verbal permission to speak to the caregivers and representatives has been obtained from the patient. N/A * Community resources currently utilized Private Duty Care * Please name any agencies selected above. [facility], 4 HOURS PER DAY, 5 DAYS PER WEEK * Additional services required to return to the preadmission environment? No * Can the patient safely return to the preadmission environment? Yes * Has this patient been hospitalized within the prior 30 days at any hospital? Yes Last DP export: 02/20/20 12:58 p Patient Name: AJMIE BELL Page 44155 at 1405 All edits/amendments must be made on the electronic document DICTATION DATE: 02/20/20 1404 POST TRONIC MACHINE OPERATOR: SUSY 02/20/20 1404 RPT#: [id number] DC DATE: STATUS: ADM IN [facility] [address] [place] [address] END OF REPORT
--- NOTE | 2020-02-20 14:12 | MORECARE ---
CASE MANAGEMENT DISCHARGE SUMMARY PATIENT: JAMIE BELL UNIT: [id number] ADM DATE: 02/18/20 AGE: 69 : 48 SEX: F ROOM/BED: D.4684 AUTHOR: WILFRID,DOC PHYSICIAN: REFERRING PHYSICIAN: NEELIMA BUTT MD DATE OF SERVICE: 02/20/20 Discharge Plan Patient Name: JAMIE BELL Facility: [facility]:[place] : 1950 Planned Disposition: Home Anticipated Discharge Date: Discharge Date: Expected LOS: Initial Reviewer: [email or web address] Initial Review Date: 02/20/2020 Generated: 02/20/20 3:11 pm Comments DCP- Discharge Planning Updated by [email or web address]: Curt Woodruff on 02/20/20 1:[address] Patient Name: JAMIE BELL Admission Status: ER Accout number: [id number] Admission Date: 02-18-2020 : 1950 Admission Diagnosis: Attending: NEELIMA BUTT Current LOS: 2 Anticipated DC Date: Planned Disposition: Home Primary Insurance: MEDICARE A & B Discharge Planning Comments: CM CALLED PT ROOM DUE TO CURRENT INFECTION CONTROL PROTOCOL, TO DISCUSS DISCHARGE PLANNING AND NEEDS. PT REPORTS LIVING AT HOME INDEPENDENTLY AND ALONE WITH PERSONAL CARE FROM [facility], 4 HOURS PER DAY, 5 DAYS PER WEEK. PT HAS WALKER, WHEELCHAIR AND OXYGEN AT NIGHT; PT PREFERS [facility] OR NO MEDICAL EQUIPMENT PROVIDER PREFERENCE. PT DID HAVE A NEBULIZER AT HOME AND HAS NOT BEEN USING IT, IT WAS BROKEN PRIOR TO LAST ADMISSION TO THE HOSPITAL. CHOICE FOR [facility] OR NO MEDICAL EQUIPMENT PROVIDER PREFERENCE, IN CASE PT NEEDS FURTHER EQUIPMENT AT HOME . CM DISCUSSED AVAILABILITY OF HOME HEALTH, REHAB SERVICES AND MEDICAL EQUIPMENT. PT DENIES DISCHARGE NEEDS, REPORTS HER FAMILY WILL PICK HER UP FOR DISCHARGE HOME. PT PLANS TO DISCHARGE HOME ALONE, HAS NO ANTICIPATED DISCHARGE NEEDS AT THIS TIME. FAMILY TO TRANSPORT HOME AT DISCHARGE. CM TO FOLLOW AND ASSIST IF NEEDED. Fish Skinning Machine Feeder: Curt Woodruff DCPIA - Discharge Planning Initial Assessment Updated by [id number]: Curt Woodruff on 02/20/20 2:01 pm * Is the patient Alert and Oriented? Yes * How many steps to enter\exit or inside your home? RAMP * PCP DR. SHORT * Pharmacy [facility] IN [place] * Preadmission Environment Home Alone * ADLs Independent * Equipment Oxygen Walker Wheelchair * Other Equipment [facility] OR NO PREFERENCE FOR MEDICAL EQUIPMENT PROVIDER * List name and contact numbers for known caregivers / representatives who currently or will assist patient after discharge: RANDAWILLIAM SOW, DTR, * Verbal permission to speak to the caregivers and representatives has been obtained from the patient. N/A * Community resources currently utilized Private Duty Care * Please name any agencies selected above. [facility], 4 HOURS PER DAY, 5 DAYS PER WEEK * Additional services required to return to the preadmission environment? No * Can the patient safely return to the preadmission environment? Yes * Has this patient been hospitalized within the prior 30 days at any hospital? Yes Coverage Notice Reviewer: [id number] Joanne Woodruff Notice Issued Date-Time: 02/20/2020 10:25 Notice Type: Patient Choice Letter Notice Delivered To: Patient Relationship to Patient: Public Relations Coordinator Name: Delivery Method: PHONE - Phone Yoanna Days: Prior Verbal Notification: Recipient Understood Notice: Yes Recipient Signature: Med Rec Note Co-signed by Attending: Coverage Notice Comment: [facility] OR NO MEDICAL EQUIPMENT PROVIDER PREFERENCE Last DP export: 02/20/20 1:05 p Patient Name: JAMIE BELL Page 08847 at 1412 All edits/amendments must be made on the electronic document DICTATION DATE: 02/20/20 1411 SHUTTLE THREADER: SUSY 02/20/20 1411 RPT#: [id number] DC DATE: STATUS: ADM IN [facility] [address] [place] [address] END OF REPORT
--- NOTE | 2020-02-20 15:32 | MORECARE ---
CASE MANAGEMENT DISCHARGE SUMMARY PATIENT: JAMIE BELL UNIT: [id number] ADM DATE: 02/18/20 AGE: 69 : 48 SEX: F ROOM/BED: D.8800 AUTHOR: WILFRID,DOC PHYSICIAN: REFERRING PHYSICIAN: ENELIMA BUTT MD DATE OF SERVICE: 02/20/20 Discharge Plan Patient Name: JAMIE BELL Facility: [facility]:[place] : 1950 Planned Disposition: Home with Home Health Anticipated Discharge Date: Discharge Date: Expected LOS: Initial Reviewer: [id number] Initial Review Date: 02/20/2020 Generated: 02/20/20 4:32 pm Comments DCP- Discharge Planning Updated by [email or web address]: Curt Woodruff on 02/20/20 1:[address] Patient Name: JAMIE BELL Admission Status: ER Accout number: [id number] Admission Date: 02-18-2020 : 1950 Admission Diagnosis: Attending: NEELIMA BUTT Current LOS: 2 Anticipated DC Date: Planned Disposition: Home Primary Insurance: MEDICARE A & B Discharge Planning Comments: CM CALLED PT ROOM DUE TO CURRENT INFECTION CONTROL PROTOCOL, TO DISCUSS DISCHARGE PLANNING AND NEEDS. PT REPORTS LIVING AT HOME INDEPENDENTLY AND ALONE WITH PERSONAL CARE FROM [facility], 4 HOURS PER DAY, 5 DAYS PER WEEK. PT HAS WALKER, WHEELCHAIR AND OXYGEN AT NIGHT; PT PREFERS [facility] OR NO MEDICAL EQUIPMENT PROVIDER PREFERENCE. PT DID HAVE A NEBULIZER AT HOME AND HAS NOT BEEN USING IT, IT WAS BROKEN PRIOR TO LAST ADMISSION TO THE HOSPITAL. CHOICE FOR [facility] OR NO MEDICAL EQUIPMENT PROVIDER PREFERENCE, IN CASE PT NEEDS FURTHER EQUIPMENT AT HOME . CM DISCUSSED AVAILABILITY OF HOME HEALTH, REHAB SERVICES AND MEDICAL EQUIPMENT. PT DENIES DISCHARGE NEEDS, REPORTS HER FAMILY WILL PICK HER UP FOR DISCHARGE HOME. PT PLANS TO DISCHARGE HOME ALONE, HAS NO ANTICIPATED DISCHARGE NEEDS AT THIS TIME. FAMILY TO TRANSPORT HOME AT DISCHARGE. CM TO FOLLOW AND ASSIST IF NEEDED. Rn Wound: Curt Woodruff DCPIA - Discharge Planning Initial Assessment Updated by [email or web address]: Curt Woodruff on 02/20/20 2:01 pm * Is the patient Alert and Oriented? Yes * How many steps to enter\exit or inside your home? RAMP * PCP DR. SHORT * Pharmacy [facility] IN [place] * Preadmission Environment Home Alone * ADLs Independent * Equipment Oxygen Walker Wheelchair * Other Equipment [facility] OR NO PREFERENCE FOR MEDICAL EQUIPMENT PROVIDER * List name and contact numbers for known caregivers / representatives who currently or will assist patient after discharge: RANDA PROCTORGATE, DTR, * Verbal permission to speak to the caregivers and representatives has been obtained from the patient. N/A * Community resources currently utilized Private Duty Care * Please name any agencies selected above. [facility], 4 HOURS PER DAY, 5 DAYS PER WEEK * Additional services required to return to the preadmission environment? No * Can the patient safely return to the preadmission environment? Yes * Has this patient been hospitalized within the prior 30 days at any hospital? Yes External Providers External Provider: [employer] Next Contact Date: 02/20/2020 Service Request Date: Service Type: Resolution: Reviewer: Comments: Coverage Notice Reviewer: [id number] Woodruff Notice Issued Date-Time: 02/20/2020 10:25 Notice Type: Patient Choice Letter Notice Delivered To: Patient Relationship to Patient: Brake Repairer Name: Delivery Method: PHONE - Phone Yoanna Days: Prior Verbal Notification: Recipient Understood Notice: Yes Recipient Signature: Med Rec Note Co-signed by Attending: Coverage Notice Comment: [facility] OR NO MEDICAL EQUIPMENT PROVIDER PREFERENCE Reviewer: CHRIS Woodruff Notice Issued Date-Time: 02/20/2020 15:27 Notice Type: Patient Choice Letter Notice Delivered To: Patient Relationship to Patient: Brake Repairer Name: Delivery Method: PHONE - Phone Yoanna Days: Prior Verbal Notification: Recipient Understood Notice: Yes Recipient Signature: Med Rec Note Co-signed by Attending: Coverage Notice Comment: [employer] Last DP export: 02/20/20 1:12 p Patient Name: JAMIE BELL Page 49450 at 1532 All edits/amendments must be made on the electronic document DICTATION DATE: 02/20/201531 CONSUMER LENDER: SUSY 02/20/201531 RPT#: [id number] DC DATE: STATUS: ADM IN [facility] [address] [place] [address] END OF REPORT
--- NOTE | 2020-02-20 15:39 | MORECARE ---
CASE MANAGEMENT DISCHARGE SUMMARY PATIENT: JAMIE BELL UNIT: [id number] ADM DATE: 02/18/20 AGE: 69 : 48 SEX: F ROOM/BED: D.2130 AUTHOR: WILFRID,DOC PHYSICIAN: REFERRING PHYSICIAN: NEELIMA BUTT MD DATE OF SERVICE: 02/20/20 Discharge Plan Patient Name: JAMIE BELL Facility: [facility]:[place] : 1950 Planned Disposition: Home with Home Health Anticipated Discharge Date: Discharge Date: Expected LOS: Initial Reviewer: [email or web address] Initial Review Date: 02/20/2020 Generated: 02/20/20 4:39 pm Comments DCP- Discharge Planning Updated by [email or web address]: Curt Woodruff on 02/20/20 2:[address] Patient Name: JAMIE BELL Encounter No: [id number] : 1950 Primary Insurance: MEDICARE A & B Anticipated DC Date: Planned Disposition: Home with Home Health External Planned Provider: [employer] [facility] DCP follow-up note: CM RECEIVED CALL FROM RANDA OF [employer] [facility], , WHO INFORMED CM THAT PT WAS ADMITTED FOR HOME HEALTH LAST THURSDAY AND [facility] SENT PT TO THE EMERGENCY ROOM DUE TO COVID19 SYMPTOMS. [facility] WILL RESUME HOME HEALTH FOR PT AT HOSPITAL DISCHARGE. CM CALLED PT VIA PHONE AND OBTAINED CHOICE FORM FOR [employer] [facility]. CM FAXED UPDATE TO [employer] AT [phone] TO RESUME HOME HEALTH FOR DISCHARGE HOME, NOTIFY [employer] [facility], , FAX DISCHARGE INFORMATION TO [employer] AT [phone]. MARIBELL Sánchez DCP- Discharge Planning Updated by [id number]: Curt Woodruff on 02/20/20 1:[address] Patient Name: JAMIE BELL Admission Status: ER Accout number: [id number] Admission Date: 02-18-2020 : 1950 Admission Diagnosis: Attending: NEELIMA BUTT Current LOS: 2 Anticipated DC Date: Planned Disposition: Home Primary Insurance: MEDICARE A & B Discharge Planning Comments: CM CALLED PT ROOM DUE TO CURRENT INFECTION CONTROL PROTOCOL, TO DISCUSS DISCHARGE PLANNING AND NEEDS. PT REPORTS LIVING AT HOME INDEPENDENTLY AND ALONE WITH PERSONAL CARE FROM [facility], 4 HOURS PER DAY, 5 DAYS PER WEEK. PT HAS WALKER, WHEELCHAIR AND OXYGEN AT NIGHT; PT PREFERS [facility] OR NO MEDICAL EQUIPMENT PROVIDER PREFERENCE. PT DID HAVE A NEBULIZER AT HOME AND HAS NOT BEEN USING IT, IT WAS BROKEN PRIOR TO LAST ADMISSION TO THE HOSPITAL. CHOICE FOR [facility] OR NO MEDICAL EQUIPMENT PROVIDER PREFERENCE, IN CASE PT NEEDS FURTHER EQUIPMENT AT HOME . CM DISCUSSED AVAILABILITY OF HOME HEALTH, REHAB SERVICES AND MEDICAL EQUIPMENT. PT DENIES DISCHARGE NEEDS, REPORTS HER FAMILY WILL PICK HER UP FOR DISCHARGE HOME. PT PLANS TO DISCHARGE HOME ALONE, HAS NO ANTICIPATED DISCHARGE NEEDS AT THIS TIME. FAMILY TO TRANSPORT HOME AT DISCHARGE. CM TO FOLLOW AND ASSIST IF NEEDED. Asset Management Analyst: Curt Woodruff [facility] Initial Assessment Updated by [id number]: Curt Woodruff on 02/20/20 2:01 pm * Is the patient Alert and Oriented? Yes * How many steps to enter\exit or inside your home? RAMP * PCP DR. SHORT * Pharmacy [facility] IN [place] * Preadmission Environment Home Alone * ADLs Independent * Equipment Oxygen Walker Wheelchair * Other Equipment [facility] OR NO PREFERENCE FOR MEDICAL EQUIPMENT PROVIDER * List name and contact numbers for known caregivers / representatives who currently or will assist patient after discharge: RANDA SOW, DTR, * Verbal permission to speak to the caregivers and representatives has been obtained from the patient. N/A * Community resources currently utilized Private Duty Care * Please name any agencies selected above. [facility], 4 HOURS PER DAY, 5 DAYS PER WEEK * Additional services required to return to the preadmission environment? No * Can the patient safely return to the preadmission environment? Yes * Has this patient been hospitalized within the prior 30 days at any hospital? Yes Coverage Notice Reviewer: [id number] Joanne Woodruff Notice Issued Date-Time: 02/20/2020 10:25 Notice Type: Patient Choice Letter Notice Delivered To: Patient Relationship to Patient: Compressor Repairer Name: Delivery Method: PHONE - Phone Yoanna Days: Prior Verbal Notification: Recipient Understood Notice: Yes Recipient Signature: Med Rec Note Co-signed by Attending: Coverage Notice Comment: [facility] OR NO MEDICAL EQUIPMENT PROVIDER PREFERENCE Reviewer: [id number] - Curt Kacy Notice Issued Date-Time: 02/20/2020 15:27 Notice Type: Patient Choice Letter Notice Delivered To: Patient Relationship to Patient: Compressor Repairer Name: Delivery Method: PHONE - Phone Yoanna Days: Prior Verbal Notification: Recipient Understood Notice: Yes Recipient Signature: Med Rec Note Co-signed by Attending: Coverage Notice Comment: [facility] Last DP export: 02/20/20 2:32 p Patient Name: JAMIE BELL Page 25300 at 1539 All edits/amendments must be made on the electronic document DICTATION DATE: 02/20/20 1539 RECREATION PROFESSOR: SUSY 02/20/20 1539 RPT#: [id number] DC DATE: STATUS: ADM IN [facility] [address] [place] [address] END OF REPORT
--- NOTE | 2020-02-20 17:02 | NUR ---
STARTED PT'S 2ND UNIT OF BLOOD. UNABLE TO GET 2ND IV ACCESS ON PT AT THIS TIME. NO S/S OF DISTRESS. VSS. BED LOW CALL LIGHT WITHIN REACH. WILL CONTINUE TO MONITOR.
--- NOTE | 2020-02-20 17:04 | NUR ---
SPOKE TO PT X2 REGAURDING PT'S EYE AND MED LIST.
--- NOTE | 2020-02-20 20:40 | NUR ---
OBSERVING DISTANCING AND ISOLATION [facility] PT HAD SPOKEN BY PHONE BUT FIRST PHISICAL CONTACT AT THIS TIME ALERT AND OX4 BED LOW AND LOCKED BLOOD STILL IN PROGRESS WILL END SOON ASSISTED PT WITH MULTIPLE NEEDS AT THIS TIME
--- NOTE | 2020-02-21 00:13 | NUR ---
CHANGED LINNENS AT THIS TIME PT TOLERATED WELL
[2020-02-21 00:26] VITALS: BP 136/66
[2020-02-21 05:14] VITALS: BP 148/78
[2020-02-21 05:28] LABS: BASOPHILS 0.2 % (0-2); EOSINOPHILS 11.7 % (0-7); HEMATOCRIT 31.1 % (36.0-48.0); IMMATURE GRANULOCYTES 0.6 % (0-5); LYMPHOCYTES 11.7 % (15-50); MCH 27.1 pg (26.0-34.0); MCHC 30.2 g/dL (31.0-37.0); MEAN PLATELET VOLUME 9.3 fL (7.4-10.4); MONOCYTES 13.1 % (2-11); NEUTROPHILS 62.7 % (40-80); PLATELET COUNT 298 10x3/uL (130-400); RDW 16.8 % (11.5-14.5); WBC 5.1 10x3/uL (4.8-10.8)
[2020-02-21 05:36] LABS: HEMOGLOBIN 9.4 g/dL (12-16); MCV 89.6 fL (80.0-100.0); RBC 3.47 10x6/uL (4.00-5.40)
[2020-02-21 05:50] LABS: ANION GAP 16.3 mmol/L (8-16); CREATININE - SERUM 4.2 mg/dL (0.6-1.3); POTASSIUM - SERUM 4.3 mmol/L (3.5-5.1); VANCOMYCIN - RANDOM 10.3 ug/mL (10.0-20.0)
[2020-02-21 08:23] VITALS: BP 161/74
--- NOTE | 2020-02-21 08:30 | MORECARE ---
CASE MANAGEMENT DISCHARGE SUMMARY PATIENT: JAMIE BELL UNIT: [id number] ADM DATE: 02/18/20 AGE: 69 : 48 SEX: F ROOM/BED: D.2130 AUTHOR: WILFRID,DOC PHYSICIAN: REFERRING PHYSICIAN: NEELIMA BUTT MD DATE OF SERVICE: 02/21/20 Discharge Plan Patient Name: JAMIE BELL Facility: [facility]:[place] : 1950 Planned Disposition: Home with Home Health Anticipated Discharge Date: Discharge Date: Expected LOS: Initial Reviewer: [id number] Initial Review Date: 02/20/2020 Generated: 02/21/20 9:29 am Comments DCP- Discharge Planning Updated by [id number]: Curt Woodruff on 02/20/20 2:[address] Patient Name: JAMIE BELL Encounter No: [id number] : 1950 Primary Insurance: MEDICARE A & B Anticipated DC Date: Planned Disposition: Home with Home Health External Planned Provider: [facility] DCP follow-up note: CM RECEIVED CALL FROM RANDA OF [facility], , WHO INFORMED CM THAT PT WAS ADMITTED FOR HOME HEALTH LAST THURSDAY AND [facility] SENT PT TO THE EMERGENCY ROOM DUE TO COVID19 SYMPTOMS. [facility] WILL RESUME HOME HEALTH FOR PT AT HOSPITAL DISCHARGE. CM CALLED PT VIA PHONE AND OBTAINED CHOICE FORM FOR [facility]. CM FAXED UPDATE TO [facility] AT [phone] TO RESUME HOME HEALTH FOR DISCHARGE HOME, NOTIFY [facility], , FAX DISCHARGE INFORMATION TO [facility] AT [phone]. MARIBELL Sánchez DCP- Discharge Planning Updated by [id number]: Curt Woodruff on 02/20/20 1:[address] Patient Name: JAMIE BELL Admission Status: ER Accout number: [id number] Admission Date: 02-18-2020 : 1950 Admission Diagnosis: Attending: NEELIMA BUTT Current LOS: 2 Anticipated DC Date: Planned Disposition: Home Primary Insurance: MEDICARE A & B Discharge Planning Comments: CM CALLED PT ROOM DUE TO CURRENT INFECTION CONTROL PROTOCOL, TO DISCUSS DISCHARGE PLANNING AND NEEDS. PT REPORTS LIVING AT HOME INDEPENDENTLY AND ALONE WITH PERSONAL CARE FROM [facility], 4 HOURS PER DAY, 5 DAYS PER WEEK. PT HAS WALKER, WHEELCHAIR AND OXYGEN AT NIGHT; PT PREFERS [facility] OR NO MEDICAL EQUIPMENT PROVIDER PREFERENCE. PT DID HAVE A NEBULIZER AT HOME AND HAS NOT BEEN USING IT, IT WAS BROKEN PRIOR TO LAST ADMISSION TO THE HOSPITAL. CHOICE FOR [facility] OR NO MEDICAL EQUIPMENT PROVIDER PREFERENCE, IN CASE PT NEEDS FURTHER EQUIPMENT AT HOME . CM DISCUSSED AVAILABILITY OF HOME HEALTH, REHAB SERVICES AND MEDICAL EQUIPMENT. PT DENIES DISCHARGE NEEDS, REPORTS HER FAMILY WILL PICK HER UP FOR DISCHARGE HOME. PT PLANS TO DISCHARGE HOME ALONE, HAS NO ANTICIPATED DISCHARGE NEEDS AT THIS TIME. FAMILY TO TRANSPORT HOME AT DISCHARGE. CM TO FOLLOW AND ASSIST IF NEEDED. Store Specialist: Curt Woodruff [facility] - Discharge Planning Initial Assessment Updated by [id number]: Curt Woodruff on 02/20/20 2:01 pm * Is the patient Alert and Oriented? Yes * How many steps to enter\exit or inside your home? RAMP * PCP DR. SHORT * Pharmacy [facility][1] IN [place] * Preadmission Environment Home Alone * ADLs Independent * Equipment Oxygen Walker Wheelchair * Other Equipment [facility] OR NO PREFERENCE FOR MEDICAL EQUIPMENT PROVIDER * List name and contact numbers for known caregivers / representatives who currently or will assist patient after discharge: RANDA SOW, DTR, * Verbal permission to speak to the caregivers and representatives has been obtained from the patient. N/A * Community resources currently utilized Private Duty Care * Please name any agencies selected above. [facility], 4 HOURS PER DAY, 5 DAYS PER WEEK * Additional services required to return to the preadmission environment? No * Can the patient safely return to the preadmission environment? Yes * Has this patient been hospitalized within the prior 30 days at any hospital? Yes Coverage Notice Reviewer: [id number] Joanne Woodruff Notice Issued Date-Time: 02/20/2020 10:25 Notice Type: Patient Choice Letter Notice Delivered To: Patient Relationship to Patient: Customer Advisor Specialist Name: Delivery Method: PHONE - Phone Yoanna Days: Prior Verbal Notification: Recipient Understood Notice: Yes Recipient Signature: Med Rec Note Co-signed by Attending: Coverage Notice Comment: [facility] OR NO MEDICAL EQUIPMENT PROVIDER PREFERENCE Reviewer: CHRIS Woodruff Notice Issued Date-Time: 02/20/2020 15:27 Notice Type: Patient Choice Letter Notice Delivered To: Patient Relationship to Patient: Customer Advisor Specialist Name: Delivery Method: PHONE - Phone Yoanna Days: Prior Verbal Notification: Recipient Understood Notice: Yes Recipient Signature: Med Rec Note Co-signed by Attending: Coverage Notice Comment: [facility] Last DP export: 02/20/20 2:39 p Patient Name: JAMIE BELL Page [phone] at 0830 All edits/amendments must be made on the electronic document DICTATION DATE: 02/21/20828 SCRAP PREPARATION SUPERVISOR: SUSY 02/21/20828 RPT#: [id number] DC DATE: STATUS: ADM IN [facility] [address] [place] [address] END OF REPORT
--- NOTE | 2020-02-21 13:52 | EC ---
PATIENT:JAMIE BELL DATE OF SERVICE: 02/18/20 SEX: F MEDICAL RECORD: [id number] DATE OF : [birth year] LOCATION:D.M2 D.213 AGE OF PATIENT: 69 ADMISSION DATE: 02/18/20 REFERRING PHYSICIAN: INTERPRETING PHYSICIAN: RAMOS JAMES MD ECHOCARDIOGRAM REPORT ECHO CHARGES 4 ECHO COMPLETE Date: 02/20/20 CLINICAL DIAGNOSIS: ELEVATED TROPONIN ECHOCARDIOGRAPHIC MEASUREMENTS (adult normal given) AC root (d.<3.7cm) 3.7 cm LV Septum d (<1.2 cm> 1.4 cm Valve Excursion 1.4 cm LV Septum (systole) 1.6 cm Left Atria (s.<4.0cm> 4.4 cm LVPW d(<1.2cm) 1.7 cm RV (d.<2.3cm) 3.9 cm LVPW (sytole) 1.8 cm LV diastole(<5.6CM) 5.2 cm MV E-F(>70mm/sec) cm LV systole 3.4 cm LVOT Diameter 1.6 cm MV exc.(>10mm) cm Est.ejection fraction (50-75%) % DOPPLER: LVIT cm/sec A 106.0cm/sec E 92.0 cm/sec LA cm/sec RVSP 22 mmHg LVOT cm/sec AOP1/2T m/s Asc. Ao 165 cm/sec RVOT 79 cm/sec RA cm/sec PA 128 cm/sec AV Gradient Peak 10.95mmHg AV Mean 6.25 mmHg AV Area 1.0 cm MV Gradient Peak 8.83 mmHg MV Mean 2.70 mmHg MV Area cm COMMENTS: Circus Agent: 2 GUERA LICEA Industrial Real Estate Agent: 3 Dr. Hinojosa TAPE# PACS Pericardial Effusion N DATE OF SERVICE: Adequate 2D, color flow imaging, spectral Doppler, and M-Mode. LVH is present. LV internal dimensions are normal. Wall motion is normal. EF is greater than or equal to 55%. Aortic valve is sclerotic; however, there is no evidence of stenosis by Doppler interrogation. Left atrium is mildly dilated at 4.4 cm. Mitral valve shows no prolapse. Mild MR. Right-sided chambers are grossly normal. Trace TR. ECHOCARDIOGRAM REPORT [id number] JAMIE BELL TRANSINT:[id number] Voice Confirmation ID: [id number] DOCUMENT ID: [id number] RAMOS JAMES MD at 1352 CC: [id number] DICTATION DATE: 02/21/20828 NIGHT COORDINATOR: 02/21/20 0952 ADM IN [place] [id number] [place] [id number]
--- NOTE | 2020-02-21 14:08 | NUR ---
I have reviewed this patient and I concur with the Shift Assessment completed by the Licensed Practical Nurse today this shift.
[2020-02-21 17:02] VITALS: BP 156/70
--- NOTE | 2020-02-21 19:03 | NUR ---
PT IN DROPLET ISOLATION OBDERVING AND ATTEMPTING TO LIMIT TRIPS TO ROOM I SPOKE WITH PT BY PHONE AND PT DENIES NEEDS AT THIS TIME
--- NOTE | 2020-02-21 19:38 | NUR ---
FINISHED CARE IN ROOM ED LOW AND LOCKED SEVERAL NEEDS SEEN TOO PHONE AND CALL LIGHT IS IN REACH CONT TO OBSERVE DROPLET ISOLATION
[2020-02-22 01:08] VITALS: BP 158/74
--- NOTE | 2020-02-22 05:26 | NUR ---
I have reviewed this patient and I concur with the Shift Assessment completed by the Licensed Practical Nurse today this shift.
[2020-02-22 07:07] LABS: BASOPHILS 0.5 % (0-2); EOSINOPHILS 14.4 % (0-7); HEMATOCRIT 34.3 % (36.0-48.0); HEMOGLOBIN 10.5 g/dL (12-16); IMMATURE GRANULOCYTES 0.2 % (0-5); LYMPHOCYTES 15.8 % (15-50); MCH 27.1 pg (26.0-34.0); MCHC 30.6 g/dL (31.0-37.0); MCV 88.4 fL (80.0-100.0); MEAN PLATELET VOLUME 9.6 fL (7.4-10.4); MONOCYTES 21.7 % (2-11); NEUTROPHILS 47.4 % (40-80); PLATELET COUNT 309 10x3/uL (130-400); RBC 3.88 10x6/uL (4.00-5.40); RDW 15.9 % (11.5-14.5); WBC 4.4 10x3/uL (4.8-10.8)
[2020-02-22 07:41] LABS: ANION GAP 15.1 mmol/L (8-16); CARBON DIOXIDE 24.3 mmol/L (21.0-32.0); CREATININE - SERUM 4.4 mg/dL (0.6-1.3); POTASSIUM - SERUM 4.4 mmol/L (3.5-5.1)
--- NOTE | 2020-02-22 08:50 | NUR ---
PT SITTING SEMI FOWLERS IN BED. RR EVEN AND UNALBORED ON 4L NC. SHE HAS A PURE WICK DRAINING URINE. SHE HAS A L WRIST PIV THAT IS RED AND TENDER. DC WITH CATH TIP FULLY INTACT. AFTER ATTEMPTING X2 I CONSULTED KASSANDRA WITH VASCULAR ACCESS. BED LOCKED AND IN LOWEST POSITION, CALL LIGHT AND PHONE WITHIN REACH. WILL CTM
--- NOTE | 2020-02-22 11:00 | NUR ---
PT NOW HAS A R WRIST PIV PLACED BY KASSANDRA DURAN. WILL CTM
--- NOTE | 2020-02-22 12:05 | NUR ---
I have reviewed this patient and I concur with the Shift Assessment completed by the Licensed Practical Nurse today this shift.
--- NOTE | 2020-02-22 13:57 | NUR ---
PT COVID-19 NEGATIVE. PT TRANSFERED TO ROOM 2105 VIA BED AND ON CONTACT ISOLATION FOR GROWTHS IN URINE.
[2020-02-22 16:57] LABS: BILIRUBIN NEGATIVE (NEGATIVE); GLUCOSE NEGATIVE (NEGATIVE); KETONE NEGATIVE (NEGATIVE); NITRITE NEGATIVE (NEGATIVE); UROBILINOGEN NORMAL (NORMAL)
[2020-02-22 17:03] LABS: EPITHELIAL CELLS 0-5 /hpf (0-5); RED CELLS - URINE 0-5 /hpf (0-5); WHITE CELLS - URINE 25-50 /hpf (NEGATIVE)
[2020-02-22 17:04] LABS: BACTERIA FEW /hpf (NEGATIVE)
[2020-02-22 17:20] LABS: ANION GAP 13.2 mmol/L (8-16); CALCIUM 9.1 mg/dL (8.5-10.1); CARBON DIOXIDE 25.9 mmol/L (21.0-32.0); CREATININE - SERUM 4.6 mg/dL (0.6-1.3); POTASSIUM - SERUM 4.1 mmol/L (3.5-5.1)
--- NOTE | 2020-02-22 19:10 | NUR ---
REPORT RECEIVED, WILL CONTINUE POC. PATIENT IS AAOX4, LYING IN SEMI-FOWLERS POSITION. NO S/S OF DISTRESS OBSERVED, RR EVEN AND UNLABORED ON 4L VIA NC. PIV TO RT WRIST, PATENT, INFUSING IRON, DRSG C/D/I. PUREWICK IN PLACE. PATIENT DENIES NEEDS AT THIS TIME. CL IN REACH, BED LOCKED AND LOWERED. CONTACT PRECAUTIONS MAINTAINED. WILL CTM.
[2020-02-22 20:00] VITALS: BP 176/64
[2020-02-23] VITALS: BP 138/66
--- NOTE | 2020-02-23 00:15 | NUR ---
ASSIST PT OFF OF BED PAIN . PRN PAIN MEDICATOIN GIVEN FOR A 8/10 PAIN LEVEL. NO SIGNS OF DISTRESS NOTED. CALL LIGHT WITH IN REACH. WILL CONTINUE TO MONITOR
--- NOTE | 2020-02-23 01:30 | NUR ---
I have reviewed this patient and I concur with the Shift Assessment completed by the Licensed Practical Nurse today this shift.
[2020-02-23 04:00] VITALS: BP 169/57
[2020-02-23 05:10] LABS: BASOPHILS 0.5 % (0-2); EOSINOPHILS 16.2 % (0-7); HEMATOCRIT 34.5 % (36.0-48.0); HEMOGLOBIN 10.6 g/dL (12-16); IMMATURE GRANULOCYTES 0.2 % (0-5); LYMPHOCYTES 26.7 % (15-50); MCH 27.2 pg (26.0-34.0); MCHC 30.7 g/dL (31.0-37.0); MCV 88.7 fL (80.0-100.0); MEAN PLATELET VOLUME 9.2 fL (7.4-10.4); MONOCYTES 18.3 % (2-11); NEUTROPHILS 38.1 % (40-80); PLATELET COUNT 287 10x3/uL (130-400); RBC 3.89 10x6/uL (4.00-5.40); RDW 15.5 % (11.5-14.5); WBC 4.3 10x3/uL (4.8-10.8)
[2020-02-23 05:30] LABS: ANION GAP 14.7 mmol/L (8-16); CARBON DIOXIDE 24.9 mmol/L (21.0-32.0); CREATININE - SERUM 4.4 mg/dL (0.6-1.3); POTASSIUM - SERUM 3.6 mmol/L (3.5-5.1)
--- NOTE | 2020-02-23 08:32 | MORECARE ---
CASE MANAGEMENT DISCHARGE SUMMARY PATIENT: JAMIE BELL UNIT: [id number] ADM DATE: 02/18/20 AGE: 69 : 48 SEX: F ROOM/BED: D.2106 AUTHOR: WILFRID,DOC PHYSICIAN: REFERRING PHYSICIAN: NEELIMA BUTT MD DATE OF SERVICE: 02/23/20 Discharge Plan Patient Name: JAMIE BELL Facility: [facility]:[place] : 1950 Planned Disposition: Home with Home Health Anticipated Discharge Date: Discharge Date: Expected LOS: Initial Reviewer: [id number] Initial Review Date: 02/20/2020 Generated: 02/23/20 9:31 am DCP- Discharge Planning Updated by [id number]: Curt Woodruff on 02/20/20 2:[address] Patient Name: JAMIE BELL Encounter No: [id number] : 1950 Primary Insurance: MEDICARE A & B Anticipated DC Date: Planned Disposition: Home with Home Health External Planned Provider: [facility] DCP follow-up note: CM RECEIVED CALL FROM RANDA OF [facility], , WHO INFORMED CM THAT PT WAS ADMITTED FOR HOME HEALTH LAST THURSDAY AND [facility] SENT PT TO THE EMERGENCY ROOM DUE TO COVID19 SYMPTOMS. [facility] WILL RESUME HOME HEALTH FOR PT AT HOSPITAL DISCHARGE. CM CALLED PT VIA PHONE AND OBTAINED CHOICE FORM FOR [facility]. CM FAXED UPDATE TO [facility] AT [phone] TO RESUME HOME HEALTH FOR DISCHARGE HOME, NOTIFY [facility], , FAX DISCHARGE INFORMATION TO [facility] AT [phone]. MARIBELL Sánchez DCP- Discharge Planning Updated by [id number]: Curt Woodruff on 02/20/20 1:[address] Patient Name: JAMIE BELL Admission Status: ER Accout number: [id number] Admission Date: 02-18-2020 : 1950 Admission Diagnosis: Attending: NEELIMA BUTT Current LOS: 2 Anticipated DC Date: Planned Disposition: Home Primary Insurance: MEDICARE A & B Discharge Planning Comments: CM CALLED PT ROOM DUE TO CURRENT INFECTION CONTROL PROTOCOL, TO DISCUSS DISCHARGE PLANNING AND NEEDS. PT REPORTS LIVING AT HOME INDEPENDENTLY AND ALONE WITH PERSONAL CARE FROM [facility], 4 HOURS PER DAY, 5 DAYS PER WEEK. PT HAS WALKER, WHEELCHAIR AND OXYGEN AT NIGHT; PT PREFERS [facility] OR NO MEDICAL EQUIPMENT PROVIDER PREFERENCE. PT DID HAVE A NEBULIZER AT HOME AND HAS NOT BEEN USING IT, IT WAS BROKEN PRIOR TO LAST ADMISSION TO THE HOSPITAL. CHOICE FOR [facility] OR NO MEDICAL EQUIPMENT PROVIDER PREFERENCE, IN CASE PT NEEDS FURTHER EQUIPMENT AT HOME . CM DISCUSSED AVAILABILITY OF HOME HEALTH, REHAB SERVICES AND MEDICAL EQUIPMENT. PT DENIES DISCHARGE NEEDS, REPORTS HER FAMILY WILL PICK HER UP FOR DISCHARGE HOME. PT PLANS TO DISCHARGE HOME ALONE, HAS NO ANTICIPATED DISCHARGE NEEDS AT THIS TIME. FAMILY TO TRANSPORT HOME AT DISCHARGE. CM TO FOLLOW AND ASSIST IF NEEDED. Lines Tender: Curt Woodruff [facility] - Discharge Planning Initial Assessment Updated by [id number]: Curt Woodruff on 02/20/20 2:01 pm * Is the patient Alert and Oriented? Yes * How many steps to enter\exit or inside your home? RAMP * PCP DR. SHORT * Pharmacy [facility] IN [place] * Preadmission Environment Home Alone * ADLs Independent * Equipment Oxygen Walker Wheelchair * Other Equipment [facility] OR NO PREFERENCE FOR MEDICAL EQUIPMENT PROVIDER * List name and contact numbers for known caregivers / representatives who currently or will assist patient after discharge: RANDA SOW, DTR, * Verbal permission to speak to the caregivers and representatives has been obtained from the patient. N/A * Community resources currently utilized Private Duty Care * Please name any agencies selected above. [facility], 4 HOURS PER DAY, 5 DAYS PER WEEK * Additional services required to return to the preadmission environment? No * Can the patient safely return to the preadmission environment? Yes * Has this patient been hospitalized within the prior 30 days at any hospital? Yes Coverage Notice Reviewer: [id number] Joanne Woodruff Notice Issued Date-Time: 02/20/2020 10:25 Notice Type: Patient Choice Letter Notice Delivered To: Patient Relationship to Patient: Supervisor Tan Room Name: Delivery Method: PHONE - Phone Yoanna Days: Prior Verbal Notification: Recipient Understood Notice: Yes Recipient Signature: Med Rec Note Co-signed by Attending: Coverage Notice Comment: [facility] OR NO MEDICAL EQUIPMENT PROVIDER PREFERENCE Reviewer: [id number] Joanne Woodruff Notice Issued Date-Time: 02/20/2020 15:27 Notice Type: Patient Choice Letter Notice Delivered To: Patient Relationship to Patient: Supervisor Tan Room Name: Delivery Method: PHONE - Phone Yoanna Days: Prior Verbal Notification: Recipient Understood Notice: Yes Recipient Signature: Med Rec Note Co-signed by Attending: Coverage Notice Comment: [facility] Last DP export: 02/21/20 7:30 a Patient Name: JAMIE BELL Page [phone] at 0832 All edits/amendments must be made on the electronic document DICTATION DATE: 02/23/20830 OVEREDGE SEWER: SUSY 02/23/20830 RPT#: [id number] DC DATE: STATUS: ADM IN [facility] [address] [place] [address] END OF REPORT
[2020-02-23 10:54] VITALS: BP 152/68
--- NOTE | 2020-02-23 11:17 | NUR ---
OT NOTE: BED MOB WITH MIN ASSIST FOR SUPINE TO SIT; SIT TO STAND WITH MIN ASSIST; ABLE TO TAKE APPROX 5 STEPS TO CHAIR. ABLE TO WASH FACE AND HANDS WITH SET UP; MAX ASSIST TO TERRY SOCKS. EDUCATED PT ON EXS TO BE PERFORMED WHILE UP IN CHAIR...PT TOLERATED SITTING UP IN CHAIR APPROX 2 HRS AND WAS READY TO RETURN TO BED. REQUIRED MOD ASSIST FOR SIT TO STAND FROM CHAIR; DECREASED STANDING BALANCE THIS TIME DUE TO FATIGUE. MOD ASSIST WITH STEPS AND TRANSFER BACK TO BED. SIT TO SUPINE WITH MOD ASSIST TO GET LEGS BACK IN BED. PT HAD EPISODE OF INCONTINENCE; MIN-MOD ASSIST FOR BED BATH; SET UP TO TERRY GOWN. REPOSITIONED AND PURE WICK REPLACED CYN BOO,OTR/L [phone]; [phone]
[2020-02-23 12:00] VITALS: BP 150/62
--- NOTE | 2020-02-23 13:08 | NUR ---
Nutrition Follow-up: Eating well. Noted Covid-19 negative. Diet: Cardiac PO intake: 50-100% No new wt; last wt: 230# (02/19) Labs noted: Na 134 Meds noted: Lasix, Zemplar, Protonix -Encourage PO intake and honor food preferences within diet restrictions. -Monitor wt. -RD following.
--- NOTE | 2020-02-23 13:18 | NUR ---
I have reviewed this patient and I concur with the Shift Assessment completed by the Licensed Practical Nurse today this shift.
--- NOTE | 2020-02-23 15:43 | NUR ---
OT NOTE: PT COMPLETED UB HYGIENE WITH SET UP. PT COMPLETED BED MOB WITH MIN A. PT COMPLETED BUE AROM EXS. [phone] THANK YOU, LUCIO MONTALVO
[2020-02-23 16:00] VITALS: BP 142/65
[2020-02-23 20:00] VITALS: BP 170/70
[2020-02-24] VITALS: BP 170/64
--- NOTE | 2020-02-24 00:48 | NUR ---
ASSESSEDE AT THE BEGINNING OF THE SHIFT. PT IS ALERT AND ORIENTED, ABLE TO VERBALIZE NEEDS. AT THE BEGINNING OF THE SHIFT HER PURE WICK WAS LEAKING AND FWE PLACED A NEW ONE ON HER AND DID A LINEN CHANGE. IT HAS DRAINED WELL SINCE THAT TIME. SHE REMAINS IN CONTACT ISOLATION AND HAS O2 AT 4 LITERS PER N/C. HER TELEMETRY SHOW A SINUS PHYLLIS AT 51, AND SHE IS RESTING QUIET AT THIS TIME.
[2020-02-24 04:00] VITALS: BP 153/59
[2020-02-24 04:58] LABS: ANION GAP 13.9 mmol/L (8-16); CALCIUM 9.7 mg/dL (8.5-10.1); CARBON DIOXIDE 26.4 mmol/L (21.0-32.0); CREATININE - SERUM 4.3 mg/dL (0.6-1.3)
[2020-02-24 05:10] LABS: POTASSIUM - SERUM 4.3 mmol/L (3.5-5.1)
[2020-02-24 05:27] LABS: BASOPHILS 0.4 % (0-2); HEMATOCRIT 34.8 % (36.0-48.0); HEMOGLOBIN 10.7 g/dL (12-16); IMMATURE GRANULOCYTES 0.2 % (0-5); LYMPHOCYTES 33.8 % (15-50); MCH 27.3 pg (26.0-34.0); MCHC 30.7 g/dL (31.0-37.0); MCV 88.8 fL (80.0-100.0); MEAN PLATELET VOLUME 9.4 fL (7.4-10.4); MONOCYTES 14.4 % (2-11); NEUTROPHILS 37.2 % (40-80); PLATELET COUNT 300 10x3/uL (130-400); RBC 3.92 10x6/uL (4.00-5.40); RDW 15.2 % (11.5-14.5); WBC 5.2 10x3/uL (4.8-10.8)
[2020-02-24 09:43] VITALS: BP 119/43
[2020-02-24 09:47] VITALS: BP 140/52
--- NOTE | 2020-02-24 13:18 | NUR ---
OT NOTE: PT COMPLETED SUPINE TO SIT WITH SBA/CGA. PT DONNED UNDERGARMENT WITH SET UP WHILE SUPINE IN BED, PT COMPLETED BED TO BSC TRANSFER WITH CGA. PT REQUIRED MIN A FOR TOILET HYGIENE. [phone] THANK YOU,LUCIO MONTALVO
--- NOTE | 2020-02-24 13:36 | NUR ---
I have reviewed this patient and I concur with the Shift Assessment completed by the Licensed Practical Nurse today this shift.
--- NOTE | 2020-02-24 19:15 | NUR ---
REPORT RECEIVED, BESIDE SHIFT REPORT COMPLETE. PT IN BED WATCHING TV. RR EVEN AND UNLABORED. NO S/SX OF DISTRESS OBSERVED. NO NEEDS EXPRESSED. CALL LIGHT IN REACH. WILL CTM.
[2020-02-24 20:30] VITALS: BP 106/55
--- NOTE | 2020-02-24 20:30 | NUR ---
PT C/O CHRONIC BACK PAIN 06/01. SNACK PROVIDED. NO FURTHER NEEDS EXPRESSED. WILL CTM.
[2020-02-25] VITALS: BP 115/52
[2020-02-25 04:36] LABS: BASOPHILS 0.3 % (0-2); EOSINOPHILS 12.6 % (0-7); HEMATOCRIT 35.1 % (36.0-48.0); HEMOGLOBIN 10.8 g/dL (12-16); IMMATURE GRANULOCYTES 0.2 % (0-5); LYMPHOCYTES 34.7 % (15-50); MCH 27.5 pg (26.0-34.0); MCHC 30.8 g/dL (31.0-37.0); MCV 89.3 fL (80.0-100.0); MEAN PLATELET VOLUME 9.3 fL (7.4-10.4); MONOCYTES 11.6 % (2-11); NEUTROPHILS 40.6 % (40-80); PLATELET COUNT 283 10x3/uL (130-400); RBC 3.93 10x6/uL (4.00-5.40); RDW 15.3 % (11.5-14.5); WBC 6.4 10x3/uL (4.8-10.8)
[2020-02-25 05:37] LABS: ALBUMIN 2.5 g/dL (3.4-5.0); ANION GAP 14.8 mmol/L (8-16); BILIRUBIN - TOTAL 0.33 mg/dL (0.2-1.3); CALCIUM 9.6 mg/dL (8.5-10.1); CARBON DIOXIDE 24.3 mmol/L (21.0-32.0); CREATININE - SERUM 4.4 mg/dL (0.6-1.3); POTASSIUM - SERUM 4.1 mmol/L (3.5-5.1); PROTEIN - SERUM 7.4 g/dL (6.4-8.2)
--- NOTE | 2020-02-25 07:00 | NUR ---
RECEIVED REPORT. ASSUMED CARE OF PATIENT. CALL LIGHT WITHIN REACH. PATIENT RESTING WITH EYES CLOSED. RESP EVEN AND UNLABORED. WHITE BOARD UPDATED. NO DISTRESS.
[2020-02-25 07:30] VITALS: BP 120/64
--- NOTE | 2020-02-25 11:25 | NUR ---
RESTING WELL IN BED WITH EYES CLOSED. EASILY AROUSED. REMAINS IN CONTACT ISOLATION. NO DISTRESS. CALL LIGHT WITHIN REACH. FRESH ICEWATER PROVIDED.
[2020-02-25] MEDS ORDERED: HYDRALAZINE HCL50 MG PO (13:05)
[2020-02-25] MEDS ORDERED: TORSEMIDE20 MG PO (13:10)
--- NOTE | 2020-02-25 13:32 | NUR ---
COMPLETE LINEN CHANGE AND BATH PROVIDED. PUREWICK CHANGED. CALL LIGHT WITHIN REACH. NO DISTRESS. PATIENT DENIES FURTHER NEEDS AT THIS TIME.
--- NOTE | 2020-02-25 15:10 | NUR ---
OT NOTE: PT REPORTS THAT SHE IS NOT FEELING WELL TODAY. DID NOT WANT TO GET UP TO CHAIR, BUT AGREEABLE TO EXS. EXPLAINED TO PT THAT SHE NEEDS TO BE MOVING ALL JOINTS AND PERFORMING ROLLING SIDE TO SIDE THROUGHOUT THE DAY IF NOT UP IN CHAIR TO PREVENT FURTHER WEAKNESS. PT IN AGREEMENT. CYN BOO, OTR/L
[2020-02-25 15:30] VITALS: BP 119/62
--- NOTE | 2020-02-25 19:10 | NUR ---
BEDSIDE REPORT RECEIVED FROM DAY SHIFT, PT CARE ASSUMED. INTRODUCED SELF AND WROTE NAME ON BOARD. PT LYING IN BED, TALKING ON THE PHONE, AAOX4. DENIES ANY NEEDS AT THIS TIME. BED IN LOWEST POSITION, SR X2, CALL LIGHT WITHIN REACH. WILL CONTINUE TO MONITOR.
[2020-02-25 20:00] VITALS: BP 116/69
[2020-02-26 04:53] LABS: BASOPHILS 0.7 % (0-2); EOSINOPHILS 9.8 % (0-7); HEMATOCRIT 35.9 % (36.0-48.0); IMMATURE GRANULOCYTES 0.3 % (0-5); LYMPHOCYTES 33.5 % (15-50); MCH 27.4 pg (26.0-34.0); MCHC 30.6 g/dL (31.0-37.0); MCV 89.3 fL (80.0-100.0); MEAN PLATELET VOLUME 9.3 fL (7.4-10.4); MONOCYTES 9.6 % (2-11); NEUTROPHILS 46.1 % (40-80); PLATELET COUNT 296 10x3/uL (130-400); RBC 4.02 10x6/uL (4.00-5.40); RDW 15.4 % (11.5-14.5); WBC 7.4 10x3/uL (4.8-10.8)
[2020-02-26 05:29] LABS: ALBUMIN 2.6 g/dL (3.4-5.0); ANION GAP 12.7 mmol/L (8-16); BILIRUBIN - TOTAL 0.41 mg/dL (0.2-1.3); CALCIUM 9.8 mg/dL (8.5-10.1); CARBON DIOXIDE 26.5 mmol/L (21.0-32.0); CREATININE - SERUM 4.4 mg/dL (0.6-1.3); POTASSIUM - SERUM 4.2 mmol/L (3.5-5.1); PROTEIN - SERUM 7.7 g/dL (6.4-8.2)
--- NOTE | 2020-02-26 17:15 | NUR ---
I have reviewed this patient and I concur with the Shift Assessment completed by the Licensed Practical Nurse today this shift.
--- NOTE | 2020-02-26 19:10 | NUR ---
BEDSIDE REPORT RECEIVED, PT CARE ASSUMED. WROTE NAME ON BOARD. PT LYING IN BED WATCHING TV, AAOX4. REQUESTING CUP OF ICE, PROVIDED. DENIES ANY OTHER NEEDS AT THIS TIME. BED IN LOWEST POSITION, SR X2, CALL LIGHT WITHIN REACH. WILL CONTINUE TO MONITOR.
[2020-02-26 20:00] VITALS: BP 128/58
[2020-02-27 06:37] LABS: BASOPHILS 0.8 % (0-2); EOSINOPHILS 6.2 % (0-7); HEMATOCRIT 35.2 % (36.0-48.0); HEMOGLOBIN 10.9 g/dL (12-16); IMMATURE GRANULOCYTES 0.2 % (0-5); LYMPHOCYTES 36.1 % (15-50); MCH 27.3 pg (26.0-34.0); MCV 88.2 fL (80.0-100.0); MEAN PLATELET VOLUME 9.4 fL (7.4-10.4); MONOCYTES 9.6 % (2-11); NEUTROPHILS 47.1 % (40-80); PLATELET COUNT 301 10x3/uL (130-400); RBC 3.99 10x6/uL (4.00-5.40)
[2020-02-27 06:50] LABS: ALBUMIN 2.7 g/dL (3.4-5.0); ANION GAP 14.7 mmol/L (8-16); BILIRUBIN - TOTAL 0.42 mg/dL (0.2-1.3); CALCIUM 9.9 mg/dL (8.5-10.1); CARBON DIOXIDE 26.4 mmol/L (21.0-32.0); CREATININE - SERUM 4.3 mg/dL (0.6-1.3); POTASSIUM - SERUM 4.1 mmol/L (3.5-5.1); PROTEIN - SERUM 7.8 g/dL (6.4-8.2)
[2020-02-27 08:55] VITALS: BP 144/64
--- NOTE | 2020-02-27 09:30 | NUR ---
Rehab Prescreening Consult recieved and the chart has been reviewed. She is [facility] managed care and will require a preauth before admitting to the ARU. Mell Cruz RN Clinical Liaison, Rehab
--- NOTE | 2020-02-27 12:22 | MORECARE ---
CASE MANAGEMENT DISCHARGE SUMMARY PATIENT: JAMIE BELL UNIT: [id number] ADM DATE: 02/18/20 AGE: 69 : 48 SEX: F ROOM/BED: D.2106 AUTHOR: LINDA YUEN PHYSICIAN: REFERRING PHYSICIAN: NEELIMA BTUT MD DATE OF SERVICE: 02/27/20 Discharge Plan Patient Name: JAMIE BELL Facility: [facility]:[place] : 1950 Planned Disposition: Inpatient Rehab Anticipated Discharge Date: 02/27/20 Discharge Date: Expected LOS: 9 Initial Reviewer: [id number] Initial Review Date: 02/20/2020 Generated: 02/27/20 1:22 pm Comments DCP- Discharge Planning Updated by [id number]: Curt Woodruff on 02/27/20 11:[address] Patient Name: JAMIE BELL Encounter No: [id number] : 1950 Primary Insurance: MEDICARE A & B Anticipated DC Date: 02-27-2020 Planned Disposition: Inpatient Rehab External Planned Provider: [facility] INPATIENT REHAB DCP follow-up note: CM RECEIVED ORDER FOR INPATIENT REHAB PRESCREENING. CM MET WITH PT IN ROOM, DISCUSSED REHAB PROVIDERS, LOCATIONS AND SERVICES. PT WANTS REHAB AT [place] SHE HAS BEEN THERE BEFORE WITH GOOD RESULT. PT IS IN AGREEMENT WITH DISCHARGE TO REHAB TODAY. CHOICE COMPLETED, IMPORTANT MESSAGE FROM MEDICARE PROVIDED AND EXPLAINED. CM SPOKE TO [facility] OF INPATIENT REHAB, THEY PLAN TO ACCEPT PT TODAY FOR REHAB; ALSO DISCUSSED IN MULTIDICIPLINARY TEAM MEETING, DR BUTT IN AGREEMENT WITH DISCHARGE TO REHAB TODAY. [facility] INPATIENT REHAB TO CONTACT MED 2 NURSE WITH ROOM NUMBER WHEN READY TO ACCEPT PT AND NURSE REPORT. Curt Woodruff, CASE DANDRE DCP- Discharge Planning Updated by [id number]: Curt Woodruff on 02/20/20 2:[address] Patient Name: JAMIE BELL Encounter No: [id number] : 1950 Primary Insurance: MEDICARE A & B Anticipated DC Date: Planned Disposition: Home with Home Health External Planned Provider: [facility] RESUMPTION DCP follow-up note: CM RECEIVED CALL FROM RANDA OF [facility], , WHO INFORMED CM THAT PT WAS ADMITTED FOR HOME HEALTH LAST THURSDAY AND [facility] SENT PT TO THE EMERGENCY ROOM DUE TO COVID19 SYMPTOMS. [facility] WILL RESUME HOME HEALTH FOR PT AT HOSPITAL DISCHARGE. CM CALLED PT VIA PHONE AND OBTAINED CHOICE FORM FOR [facility]. CM FAXED UPDATE TO [facility] AT [phone] TO RESUME HOME HEALTH FOR DISCHARGE HOME, NOTIFY [employer], , FAX DISCHARGE INFORMATION TO [facility] AT [phone]. Curt Woodruff, CASE MAANGEMENT DCP- Discharge Planning Updated by [id number]: Curt Woodruff on 02/20/20 1:[address] Patient Name: JAMIE BELL Admission Status: ER Accout number: [id number] Admission Date: 02-18-2020 : 1950 Admission Diagnosis: Attending: NEELIMA BUTT Current LOS: 2 Anticipated DC Date: Planned Disposition: Home Primary Insurance: MEDICARE A & B Discharge Planning Comments: CM CALLED PT ROOM DUE TO CURRENT INFECTION CONTROL PROTOCOL, TO DISCUSS DISCHARGE PLANNING AND NEEDS. PT REPORTS LIVING AT HOME INDEPENDENTLY AND ALONE WITH PERSONAL CARE FROM [facility], 4 HOURS PER DAY, 5 DAYS PER WEEK. PT HAS WALKER, WHEELCHAIR AND OXYGEN AT NIGHT; PT PREFERS [facility] OR NO MEDICAL EQUIPMENT PROVIDER PREFERENCE. PT DID HAVE A NEBULIZER AT HOME AND HAS NOT BEEN USING IT, IT WAS BROKEN PRIOR TO LAST ADMISSION TO THE HOSPITAL. CHOICE FOR [facility] OR NO MEDICAL EQUIPMENT PROVIDER PREFERENCE, IN CASE PT NEEDS FURTHER EQUIPMENT AT HOME . CM DISCUSSED AVAILABILITY OF HOME HEALTH, REHAB SERVICES AND MEDICAL EQUIPMENT. PT DENIES DISCHARGE NEEDS, REPORTS HER FAMILY WILL PICK HER UP FOR DISCHARGE HOME. PT PLANS TO DISCHARGE HOME ALONE, HAS NO ANTICIPATED DISCHARGE NEEDS AT THIS TIME. FAMILY TO TRANSPORT HOME AT DISCHARGE. CM TO FOLLOW AND ASSIST IF NEEDED. Director Of Enterprise Architecture: Curt Woodruff DCPIA - Discharge Planning Initial Assessment Updated by [id number]: Curt Woodruff on 02/20/20 2:01 pm * Is the patient Alert and Oriented? Yes * How many steps to enter\exit or inside your home? RAMP * PCP DR. SHORT * Pharmacy [facility] IN [place] * Preadmission Environment Home Alone * ADLs Independent * Equipment Oxygen Walker Wheelchair * Other Equipment [facility] OR NO PREFERENCE FOR MEDICAL EQUIPMENT PROVIDER * List name and contact numbers for known caregivers / representatives who currently or will assist patient after discharge: RANDA SOW, DTR, * Verbal permission to speak to the caregivers and representatives has been obtained from the patient. N/A * Community resources currently utilized Private Duty Care * Please name any agencies selected above. [facility], 4 HOURS PER DAY, 5 DAYS PER WEEK * Additional services required to return to the preadmission environment? No * Can the patient safely return to the preadmission environment? Yes * Has this patient been hospitalized within the prior 30 days at any hospital? Yes Coverage Notice Reviewer: CHRIS Woodruff Notice Issued Date-Time: 02/20/2020 10:25 Notice Type: Patient Choice Letter Notice Delivered To: Patient Relationship to Patient: Armament Mechanic Name: Delivery Method: PHONE - Phone Yoanna Days: Prior Verbal Notification: Recipient Understood Notice: Yes Recipient Signature: Med Rec Note Co-signed by Attending: Coverage Notice Comment: [facility] OR NO MEDICAL EQUIPMENT PROVIDER PREFERENCE Reviewer: CHRIS Woodruff Notice Issued Date-Time: 02/20/2020 15:27 Notice Type: Patient Choice Letter Notice Delivered To: Patient Relationship to Patient: Armament Mechanic Name: Delivery Method: PHONE - Phone Yoanna Days: Prior Verbal Notification: Recipient Understood Notice: Yes Recipient Signature: Med Rec Note Co-signed by Attending: Coverage Notice Comment: [facility] Reviewer: CHRIS Woodruff Notice Issued Date-Time: 02/27/2020 10:20 Notice Type: IM Discharge Notice Notice Delivered To: Patient Relationship to Patient: Armament Mechanic Name: Delivery Method: HAND - Hand Delivered Yoanna Days: Prior Verbal Notification: Recipient Understood Notice: Yes Recipient Signature: Med Rec Note Co-signed by Attending: Coverage Notice Comment: HAND DELIVERED, NO SIGNATURE DUE TO CURRENT INFECTION CONTROL PROTOCOL Reviewer: [id number] Woodruff Notice Issued Date-Time: 02/27/2020 10:20 Notice Type: Patient Choice Letter Notice Delivered To: Patient Relationship to Patient: Armament Mechanic Name: Delivery Method: HAND - Hand Delivered Yoanna Days: Prior Verbal Notification: Recipient Understood Notice: Yes Recipient Signature: Med Rec Note Co-signed by Attending: Coverage Notice Comment: [facility] INPATIENT REHAB HAND DELIVERED, NO SIGNATURE DUE TO CURRENT INFECTION CONTROL PROTOCOL Last DP export: 02/23/20 7:32 am Patient Name: JAMIE BELL Page [phone] at 1222 All edits/amendments must be made on the electronic document DICTATION DATE: 02/27/201221 MOLDING MACHINE OPERATOR: SUSY 02/27/20 1222 RPT#: [id number] DC DATE: STATUS: ADM IN [facility] [address] [place] [address] END OF REPORT
--- NOTE | 2020-02-27 12:34 | NUR ---
OT NOTE: PT REPORTED FEELING BETTER TODAY. BED MOB WITH MIN ASSIST; MOD ASSIST TO TERRY BRIEF; MAX ASSIST TO TERRY SOCKS; AMB WITH WALKER APPROX 13 FT AROUND BED TO CHAIR. PERFORMED SIMPLE GROOMING AND SHORT SPONGE BATH WITH SET UP FOR UPPER BODY; MAX FOR BACK. ABLE TO TERRY GOWN WITH SET UP. FEEDING WITH SET UP. PT STATES THAT SHE IS WAITING TO GO TO REHAB. DEF RECOMMEND REHAB PRIOR TO DC HOME PT IS WEAK AND SOB WITH MINIMAL EXERTION. CYN BOO, OTR/L [phone]
[2020-02-27] MEDS ORDERED: PROVENTIL/2.5 MG/3 M INH (12:56)
--- NOTE | 2020-02-27 15:19 | NUR ---
ALERT AND ORIENTED X4. SITTING UP IN BED. REPORT CALLED TO [facility] IN REHAB. ASSIST TO WHEELCHAIR. TRANSFER TO ROOM 1114B.
--- NOTE | 2020-02-28 15:24 | NUR ---
OT NOTE: (DOS 02/27/2020) PT COMPLETED BED MOB WITH MIN/MOD A. PT COMPLETED SUPINE TO SIT WITH MIN A. PT COMPLETED FACE AND HAND HYGIENE TASKS AT EOB WITH SET UP-CGA. [id number] THANK YOU,LUCIO MONTALVO
--- NOTE | 2020-03-01 08:26 | MORECARE ---
CASE MANAGEMENT DISCHARGE SUMMARY PATIENT: JAMIE BELL UNIT: [id number] ADM DATE: 02/18/20 AGE: 69 : 48 SEX: F ROOM/BED: D.2106 AUTHOR: WILFRID,DOC PHYSICIAN: REFERRING PHYSICIAN: NEELIMA BUTT MD DATE OF SERVICE: 03/01/20 Discharge Plan Patient Name: JAMIE BELL Facility: [facility]:[place] : 1950 Planned Disposition: Inpatient Rehab Anticipated Discharge Date: 02/27/20 Discharge Date: 02/27/2020 Expected LOS: 9 Initial Reviewer: [id number] Initial Review Date: 02/20/2020 Generated: 03/01/20 9:25 am Comments DCP- Discharge Planning Updated by [id number]: Curt Woodruff on 02/27/20 11:[address] Patient Name: JAMIE BELL Encounter No: [id number] : 1950 Primary Insurance: MEDICARE A & B Anticipated DC Date: 02-27-2020 Planned Disposition: Inpatient Rehab External Planned Provider: [facility] INPATIENT REHAB DCP follow-up note: CM RECEIVED ORDER FOR INPATIENT REHAB PRESCREENING. CM MET WITH PT IN ROOM, DISCUSSED REHAB PROVIDERS, LOCATIONS AND SERVICES. PT WANTS REHAB AT [place] SHE HAS BEEN THERE BEFORE WITH GOOD RESULT. PT IS IN AGREEMENT WITH DISCHARGE TO REHAB TODAY. CHOICE COMPLETED, IMPORTANT MESSAGE FROM MEDICARE PROVIDED AND EXPLAINED. CM SPOKE TO [facility] OF INPATIENT REHAB, THEY PLAN TO ACCEPT PT TODAY FOR REHAB; ALSO DISCUSSED IN MULTIDICIPLINARY TEAM MEETING, DR BUTT IN AGREEMENT WITH DISCHARGE TO REHAB TODAY. [facility] INPATIENT REHAB TO CONTACT MED 2 NURSE WITH ROOM NUMBER WHEN READY TO ACCEPT PT AND NURSE REPORT. Curt Woodruff, CASE MANAGEMENT DCP- Discharge Planning Updated by [id number]: Curt Woodruff on 02/20/20 2:[address] Patient Name: JAMIE BELL Encounter No: [id number] : 1950 Primary Insurance: MEDICARE A & B Anticipated DC Date: Planned Disposition: Home with Home Health External Planned Provider: [facility] RESUMPTION DCP follow-up note: CM RECEIVED CALL FROM RANDA OF [facility], , WHO INFORMED CM THAT PT WAS ADMITTED FOR HOME HEALTH LAST THURSDAY AND [facility] SENT PT TO THE EMERGENCY ROOM DUE TO COVID19 SYMPTOMS. [facility] WILL RESUME HOME HEALTH FOR PT AT HOSPITAL DISCHARGE. CM CALLED PT VIA PHONE AND OBTAINED CHOICE FORM FOR [facility]. CM FAXED UPDATE TO [employer] [facility] AT [phone] TO RESUME HOME HEALTH FOR DISCHARGE HOME, NOTIFY [facility], , FAX DISCHARGE INFORMATION TO [employer] [facility] AT [phone]. Curt Woodruff, MARIBELL MAANGEMENT DCP- Discharge Planning Updated by [id number]: Curt Woodruff on 02/20/20 1:[address] Patient Name: JAMIE BELL Admission Status: ER Accout number: [id number] Admission Date: 02-18-2020 : 1950 Admission Diagnosis: Attending: NEELIMA BUTT Current LOS: 2 Anticipated DC Date: Planned Disposition: Home Primary Insurance: MEDICARE A & B Discharge Planning Comments: CM CALLED PT ROOM DUE TO CURRENT INFECTION CONTROL PROTOCOL, TO DISCUSS DISCHARGE PLANNING AND NEEDS. PT REPORTS LIVING AT HOME INDEPENDENTLY AND ALONE WITH PERSONAL CARE FROM [facility], 4 HOURS PER DAY, 5 DAYS PER WEEK. PT HAS WALKER, WHEELCHAIR AND OXYGEN AT NIGHT; PT PREFERS [facility] OR NO MEDICAL EQUIPMENT PROVIDER PREFERENCE. PT DID HAVE A NEBULIZER AT HOME AND HAS NOT BEEN USING IT, IT WAS BROKEN PRIOR TO LAST ADMISSION TO THE HOSPITAL. CHOICE FOR [facility] OR NO MEDICAL EQUIPMENT PROVIDER PREFERENCE, IN CASE PT NEEDS FURTHER EQUIPMENT AT HOME . CM DISCUSSED AVAILABILITY OF HOME HEALTH, REHAB SERVICES AND MEDICAL EQUIPMENT. PT DENIES DISCHARGE NEEDS, REPORTS HER FAMILY WILL PICK HER UP FOR DISCHARGE HOME. PT PLANS TO DISCHARGE HOME ALONE, HAS NO ANTICIPATED DISCHARGE NEEDS AT THIS TIME. FAMILY TO TRANSPORT HOME AT DISCHARGE. CM TO FOLLOW AND ASSIST IF NEEDED. Retail Sales Specialist: Curt Woodruff DCPIA - Discharge Planning Initial Assessment Updated by [id number]: Curt Woodruff on 02/20/20 2:01 pm * Is the patient Alert and Oriented? Yes * How many steps to enter\exit or inside your home? RAMP * PCP DR. SHORT * Pharmacy [facility] * Preadmission Environment Home Alone * ADLs Independent * Equipment Oxygen Walker Wheelchair * Other Equipment [facility] OR NO PREFERENCE FOR MEDICAL EQUIPMENT PROVIDER * List name and contact numbers for known caregivers / representatives who currently or will assist patient after discharge: RANDA JUANJOSE, DTR, * Verbal permission to speak to the caregivers and representatives has been obtained from the patient. N/A * Community resources currently utilized Private Duty Care * Please name any agencies selected above. [facility], 4 HOURS PER DAY, 5 DAYS PER WEEK * Additional services required to return to the preadmission environment? No * Can the patient safely return to the preadmission environment? Yes * Has this patient been hospitalized within the prior 30 days at any hospital? Yes Coverage Notice Reviewer: CHRIS Woodruff Notice Issued Date-Time: 02/20/2020 10:25 Notice Type: Patient Choice Letter Notice Delivered To: Patient Relationship to Patient: Fur Liner Name: Delivery Method: PHONE - Phone Yoanna Days: Prior Verbal Notification: Recipient Understood Notice: Yes Recipient Signature: Med Rec Note Co-signed by Attending: Coverage Notice Comment: [facility] OR NO MEDICAL EQUIPMENT PROVIDER PREFERENCE Reviewer: CHRIS Woodruff Notice Issued Date-Time: 02/20/2020 15:27 Notice Type: Patient Choice Letter Notice Delivered To: Patient Relationship to Patient: Fur Liner Name: Delivery Method: PHONE - Phone Yoanna Days: Prior Verbal Notification: Recipient Understood Notice: Yes Recipient Signature: Med Rec Note Co-signed by Attending: Coverage Notice Comment: [facility] Reviewer: CHRIS Woodruff Notice Issued Date-Time: 02/27/2020 10:20 Notice Type: IM Discharge Notice Notice Delivered To: Patient Relationship to Patient: Fur Liner Name: Delivery Method: HAND - Hand Delivered Yoanna Days: Prior Verbal Notification: Recipient Understood Notice: Yes Recipient Signature: Med Rec Note Co-signed by Attending: Coverage Notice Comment: HAND DELIVERED, NO SIGNATURE DUE TO CURRENT INFECTION CONTROL PROTOCOL Reviewer: [id number] Woodruff Notice Issued Date-Time: 02/27/2020 10:20 Notice Type: Patient Choice Letter Notice Delivered To: Patient Relationship to Patient: Fur Liner Name: Delivery Method: HAND - Hand Delivered Yoanna Days: Prior Verbal Notification: Recipient Understood Notice: Yes Recipient Signature: Med Rec Note Co-signed by Attending: Coverage Notice Comment: [facility] INPATIENT REHAB HAND DELIVERED, NO SIGNATURE DUE TO CURRENT INFECTION CONTROL PROTOCOL Last DP export: 02/27/20 11:22 am Patient Name: JAMIE BELL Page [phone] at 0826 All edits/amendments must be made on the electronic document DICTATION DATE: 03/01/20824 DEFENSE ANALYST: SUSY 03/01/20824 RPT#: [id number] DC DATE:02/27/20 STATUS: DIS IN [facility] [address] [place] [address] END OF REPORT
== END 2020-02-27 16:09 | DRG 280 ==
LOC: D.ER 17:16 → D.M2 20:33
PROVIDERS: Family Medicine; Internal Medicine; ADMIT Internal Medicine Nephrology; ATTEND Internal Medicine Nephrology
DX: I13.2 Hypertensive heart and chronic kidney disease with heart failure and with stage 5 chronic kidney disease, or end stage renal disease (principal); J96.21 Acute and chronic respiratory failure with hypoxia; I21.4 Non-ST elevation (NSTEMI) myocardial infarction; I50.33 Acute on chronic diastolic (congestive) heart failure; J18.9 Pneumonia, unspecified organism; J44.1 Chronic obstructive pulmonary disease with (acute) exacerbation; E87.1 Hypo-osmolality and hyponatremia; N39.0 Urinary tract infection, site not specified; I69.354 Hemiplegia and hemiparesis following cerebral infarction affecting left non-dominant side; N18.5 Chronic kidney disease, stage 5; J44.0 Chronic obstructive pulmonary disease with (acute) lower respiratory infection; J98.11 Atelectasis; D62 Acute posthemorrhagic anemia; N17.9 Acute kidney failure, unspecified; D63.1 Anemia in chronic kidney disease; I25.10 Atherosclerotic heart disease of native coronary artery without angina pectoris; E03.9 Hypothyroidism, unspecified; K21.9 Gastro-esophageal reflux disease without esophagitis; F32.9 Major depressive disorder, single episode, unspecified; Z20.828 Contact with and (suspected) exposure to other viral communicable diseases; G89.29 Other chronic pain

== ENCOUNTER 2020-02-27 16:15 | Inpatient (IN) | payer MEDICARE ==
[~2020-02-27] VITALS: Ht 160 cm; Wt 108.4 kg
[~2020-02-27 16:15] MED LIST changes: +PROVENTIL/2.5 MG/3 M INH; +TORSEMIDE20 MG PO
[2020-02-27 17:00] VITALS: BP 155/55; BMI 42.4
--- NOTE | 2020-02-27 17:20 | NUR ---
ADMIT TO FLOOR FROM ACUTE CARE FLOOR AT [facility]. IS ROACH X4. DENIES WORSE SOB AT PRESENT. INCONT OF BOWEL AND BLADDER. DENIES PRODUCTIVE COUGH. CALL LIGHT IN REACH.
--- NOTE | 2020-02-27 20:00 | NUR ---
PT IS RESTING IN BED WITH EYES OPEN. ALERT AND ORIENTED X 3. DENIES ACUTE PAIN OR DISCOMFORT AT THIS TIME. ASSISTED TO THE BATHROOM WITH MIN ASSIST USING WC. PT WAS INC. OF BOWEL. SHE PROVIDED HER OWN ADL CARE. CONTACT PRECAUTIONS OBSERVED. SR'S ARE UP X 2 IN BED. CALL LIGHT AND BEDSIDE TABLE ARE WITHIN EACH REACH.
--- NOTE | 2020-02-27 23:00 | NUR ---
PT IS RESTING IN BED WATCHING TV. NO NEEDS VOICED.
--- NOTE | 2020-02-28 03:06 | NUR ---
I have reviewed this patient and I concur with the Shift Assessment completed by the Licensed Practical Nurse today this shift.
--- NOTE | 2020-02-28 05:41 | NUR ---
PT INC. OF A LARGE AMOUNT OF URINE. SUMA CARE AND FULL BED CHANGE DONE.
[2020-02-28 06:08] LABS: HEMATOCRIT 37.3 % (36.0-48.0); HEMOGLOBIN 11.5 g/dL (12-16); MCH 27.5 pg (26.0-34.0); MCHC 30.8 g/dL (31.0-37.0); MCV 89.2 fL (80.0-100.0); MEAN PLATELET VOLUME 9.9 fL (7.4-10.4); PLATELET COUNT 290 10x3/uL (130-400); RBC 4.18 10x6/uL (4.00-5.40); RDW 15.2 % (11.5-14.5)
[2020-02-28 06:18] LABS: ANION GAP 16.2 mmol/L (8-16); CALCIUM 9.8 mg/dL (8.5-10.1); CARBON DIOXIDE 27.2 mmol/L (21.0-32.0); CREATININE - SERUM 4.5 mg/dL (0.6-1.3); POTASSIUM - SERUM 4.4 mmol/L (3.5-5.1)
[2020-02-28 07:11] LABS: EOSINOPHILS 1 % (0-7); LYMPHOCYTES 24 % (15-50); MONOCYTES 9 % (2-11); NEUTROPHILS 66 % (40-80); PLATELET ESTIMATE NORMAL
[2020-02-28 08:00] VITALS: BP 128/66
--- NOTE | 2020-02-28 08:00 | NUR ---
PT RESTING IN BED WITH EYES OPEN CALL LIGHT IN REACH NO PROBLEMS WILL MONITER
--- NOTE | 2020-02-28 11:13 | NUR ---
PATIENT ADMITTED TO REHAB FROM ACUTE FLOOR. DR. SHORT IS HER PCP, SHE HAS [facility] AND [facility] FOR PERSONAL CARE..DME AT HOME IS A WALKER, WHEELCHAIR, O2 AND A NEBULIZER FROM [facility]. DISCHARGE PLANS ARE FOR PATIENT TO RETURN HOME AT DSICHARGE. WILL CONTINUE TO FOLLOW WITH PATIENT.
[2020-02-28 12:39] VITALS: Ht 160 cm; Wt 108.4 kg
--- NOTE | 2020-02-28 19:25 | NUR ---
PT LYING IN BED WATCHING TV. CL IN REACH. DENIES NEEDS OR PAIN AT THIS TIME. BED IN LOW SIDE RAILS X2. RESP EVEN AND UNLABORED. A/O X4. LUNGS CLEAR. BOWEL ACTIVE X4. 2L OF O2 PRN. WILL CONTINUE TO MONITOR.
[2020-02-28 21:48] VITALS: BP 152/72
--- NOTE | 2020-02-29 03:50 | NUR ---
I have reviewed this patient and I concur with the Shift Assessment completed by the Licensed Practical Nurse today this shift.
[2020-02-29 07:12] LABS: BASOPHILS 0.8 % (0-2); EOSINOPHILS 4.8 % (0-7); HEMATOCRIT 32.3 % (36.0-48.0); HEMOGLOBIN 9.8 g/dL (12-16); IMMATURE GRANULOCYTES 0.5 % (0-5); LYMPHOCYTES 30.4 % (15-50); MCH 26.9 pg (26.0-34.0); MCHC 30.3 g/dL (31.0-37.0); MCV 88.7 fL (80.0-100.0); MEAN PLATELET VOLUME 10.1 fL (7.4-10.4); MONOCYTES 10.4 % (2-11); NEUTROPHILS 53.1 % (40-80); PLATELET COUNT 288 10x3/uL (130-400); RBC 3.64 10x6/uL (4.00-5.40); WBC 8.3 10x3/uL (4.8-10.8)
[2020-02-29 07:42] LABS: ANION GAP 19.3 mmol/L (8-16); CALCIUM 9.2 mg/dL (8.5-10.1); CARBON DIOXIDE 24.7 mmol/L (21.0-32.0); CREATININE - SERUM 4.8 mg/dL (0.6-1.3)
[2020-02-29 08:56] VITALS: BP 154/53
--- NOTE | 2020-02-29 15:45 | NUR ---
CARE TEAM MEETING: PATIENT IS NEW TO UNIT AND WILL BE RA AT NEXT MEETING. WILL CONTINUE TO FOLLOW WITH PATIENT.
[2020-02-29 20:09] VITALS: BP 125/50
--- NOTE | 2020-02-29 20:12 | NUR ---
PT LYING IN BED AWAKE ALERT AND ORIENTED x4. NO SIGNS OR SYMPTOMS OF DISTRESS NOTED. PT ENCOURAGED TO CALL FOR HELP WHEN NEEDED. CALL LIGHT WITH IN REACH. WILL CONTINUE TO MONITOR
--- NOTE | 2020-02-29 22:00 | NUR ---
BLOOD PRESSURE MEDICATION APRESOLINE AND INDERAL HELD FOR LOW BLOOD PRESSURE 125/50. CALL LIGHT WITH IN REACH. BED ALARM ON AND ACTIVE. WILL CONTINUE TO MONITOR
--- NOTE | 2020-03-01 06:23 | NUR ---
I have reviewed this patient and I concur with the Shift Assessment completed by the Licensed Practical Nurse today this shift.
--- NOTE | 2020-03-01 08:00 | NUR ---
PT UP IN WHEELCHAIR EATING BREAKFAST TOLERATED WELL CALL LIGHT IN REACH WILL MONITER
[2020-03-01 08:18] VITALS: BP 129/60
--- NOTE | 2020-03-01 11:00 | NUR ---
I have reviewed this patient and I concur with the Shift Assessment completed by the Licensed Practical Nurse today this shift.
--- NOTE | 2020-03-01 14:09 | NUR ---
Nutrition Follow-up: Eating well. Diet: Soft, AHA PO intake: 100% x 6 meals (02/27-02/28) Last recorded BM: 02/26 Labs reviewed Meds noted: Zemplar, Protonix -Continue current diet as tolerated. -Monitor wt. -RD following.
--- NOTE | 2020-03-01 18:20 | NUR ---
PT EATING SUPPER TOLERATING WELL WILL MONITER
--- NOTE | 2020-03-01 18:28 | NUR ---
PT RESTING IN BED WITH EYES OPEN CALL LIGHT IN REACH WILL MONITER
--- NOTE | 2020-03-01 19:20 | NUR ---
GREETED PATIENT AND INTRODUCED MYSELF HER NURSE. PATIENT IS CURRENTLY RELAXING QUIETLY IN BED WATCHING TV. RESPIRATIONS EVEN. NO S/S OF DISTRESS. DENIES ANY FURHTER NEEDS AT THIS TIME. CALL LIGHT IN REACH.
[2020-03-01 20:00] VITALS: BP 106/58
--- NOTE | 2020-03-02 01:04 | NUR ---
PT RESTING QUIETLY WITH EYES CLOSED. RESPIRATIONS EVEN. NO S/S OF DISTRESS. CALL LIGHT IN REACH.
[2020-03-02 06:09] LABS: BASOPHILS 0.4 % (0-2); EOSINOPHILS 6.6 % (0-7); HEMATOCRIT 31.8 % (36.0-48.0); HEMOGLOBIN 9.7 g/dL (12-16); IMMATURE GRANULOCYTES 0.2 % (0-5); LYMPHOCYTES 23.2 % (15-50); MCH 27.1 pg (26.0-34.0); MCHC 30.5 g/dL (31.0-37.0); MCV 88.8 fL (80.0-100.0); MEAN PLATELET VOLUME 10.1 fL (7.4-10.4); MONOCYTES 10.3 % (2-11); NEUTROPHILS 59.3 % (40-80); PLATELET COUNT 282 10x3/uL (130-400); RBC 3.58 10x6/uL (4.00-5.40); RDW 14.9 % (11.5-14.5); WBC 8.1 10x3/uL (4.8-10.8)
[2020-03-02 06:28] LABS: ANION GAP 16.8 mmol/L (8-16); CALCIUM 9.5 mg/dL (8.5-10.1); CARBON DIOXIDE 25.8 mmol/L (21.0-32.0); CREATININE - SERUM 5.3 mg/dL (0.6-1.3); POTASSIUM - SERUM 3.6 mmol/L (3.5-5.1)
[2020-03-02 08:00] VITALS: BP 153/54
--- NOTE | 2020-03-02 14:12 | RHP ---
PATIENT: JAMIE BELL MEDICAL RECORD: [id number] ACCOUNT: [id number] [facility] [birth year] ADMISSION DATE: 02/27/20 REHABILITATION HISTORY AND PHYSICAL EXAMINATION POST ADMISSION PHYSICIAN EXAMINATION ADMITTING DIAGNOSIS: Congestive heart failure induced myopathy. HISTORY OF PRESENT ILLNESS: The patient is a 69-year-old female patient who was admitted from the Emergency Room on 02/18/2020. She arrived complaining of increasing shortness of breath, dyspnea on exertion, elevated temperature, productive cough. The patient was discharged from hospital after a 2-week stay prior to this with non-ST segment elevation VT and she had a PTCA of her right coronary artery. She did have a pretty severe right groin hematoma after this. On exam, she is alert and oriented times 3. She had decreased breath sounds. She had O2 sats of 85% to 92% on 4 liters. She was fatigued and weak. Chest x-ray showed central and peripheral pulmonary edema. The patient had a mild bilateral lower lobe airspace disease and pleural effusions. The patient was seen by pulmonary and also cardiology during her stay. Pulmonary impression was acute hypoxic respiratory failure due to pulmonary edema. The patient had an elevated BNP of greater than 50,000. She did not appear to have COVID, but was tested. Cardiology felt like this was because of a stunned heart at this time. The patient was seen and evaluated, her COVID was negative once again. She did well throughout her stay, but she continues to have problems with prolonged immobility, progressive generalized weakness especially in her lower extremities affecting her tolerance to PT. She has fatigued, has limited flexion, extension, proximal muscle strength is decreased. She is mod to max assist for ADLs, mod to max assist for sit to stand and bed to chair. Previously, she was living with her daughter and caregiver, and would like to return home if possible. COMORBIDITIES: Include acute chronic renal failure, acute respiratory failure, bradycardia, coronary artery disease, CHF, obstructive pulmonary disease, dyspnea, essential hypertension, fatigue, pulmonary edema, and vitamin D deficiency. PAST MEDICAL HISTORY: Significant for weakness, CVA, hypothyroidism, stents and angioplasty, home O2 dependence, arthritis, chronic back pain, fibromyalgia, eczema, depression. PAST SURGICAL HISTORY: Includes gallbladder, appendectomy, hysterectomy, hiatal hernia repair, cardiac stent placement, carpal tunnel. She has had ganglion cyst removed. She has had a stent replacement. ALLERGIES: PENICILLIN AND CODEINE. CURRENT MEDICATIONS: Include Zemplar 2 mcg daily. She is on nifedipine 90 mg daily, Niferex 1 cap daily, Plavix 75 mg daily, citalopram 20 mg daily, aspirin chewable 81 mg daily, Protonix 40 mg daily, Demadex 60 mg b.i.d., propranolol 10 mg b.i.d., hydralazine 25 mg t.i.d., Lipitor 10 mg at bedtime, Ventolin updrafts q.i.d., Mylanta 80 mg every 4 hours p.r.n. She is on Nystatin powder as needed. She has got Nitrostat for chest pain as needed, Benld 10/325 one tab every 8 hours p.r.n., Tylenol 650 every 4 hours p.r.n., and MiraLax 17 g in 8 ounces of water daily. HISTORY AND PHYSICAL [id number] JAMIE BELL HABITS: No alcohol or tobacco use. FAMILY HISTORY: Noncontributory. SOCIAL HISTORY: The patient hopes to return home once again with her daughter. REVIEW OF SYSTEMS: GENERAL: Does complain of weakness and fatigue. HEENT: Denies cold, cough, or congestion. CARDIOVASCULAR: Denies any chest pain. PHYSICAL EXAMINATION: VITAL SIGNS: Stable, afebrile. GENERAL: A somewhat obese female, in no distress upon exam. HEENT: Normocephalic and atraumatic. Mucosa moist. NECK: Supple. No lymphadenopathy. LUNGS: Clear at this time with no wheezing, rhonchi or rales. HEART: Regular rate and rhythm. No murmurs, rubs or gallops. ABDOMEN: Soft, benign, and nondistended. Positive bowel sounds times 4. EXTREMITIES: No clubbing, cyanosis or edema. NEUROLOGIC: She does have noted proximal muscle weakness. LABORATORY DATA: White count is 9000, H&H of 11 and 32, and platelet count is 290. Sodium 138, potassium 4.4, BUN and creatinine of 82 and 4.5 and blood sugar is noted to be 91. ASSESSMENT: This is a 69-year-old female patient admitted to rehab with a working diagnosis of congestive heart failure induced myopathy. The patient has potential to make improvement. We instituted the following multidisciplinary therapies including, but not limited to physical, occupational, respiratory, speech, nutritional services, prosthetics and orthotics. Given her complex medical condition and risk for more complications, rehabilitation services cannot be provided at a low level of care such as skilled nurse facility. PLAN: 1. Admit to [facility] for inpatient therapy to include the following disciplines; A. Physical therapy to improve gait, all transfer skills and bed mobility to a modified independent level. B. Occupational therapy to improve activities of daily living. C. Case management to assist with discharge planning and placement options. D. Nutrition to assist with nutritional needs. E. Rehabilitation nursing to assist in monitoring the patient's underlying medical conditions and to assist with any type of bowel or bladder management. 2. The patient's current medications and medical care will be continued. 3. The patient will be placed on standard fall precautions. 4. Appreciate renal help with this patient. 5. We will see again in the a.m. TRANSINT:[id number] Voice Confirmation ID: [id number] DOCUMENT ID: [id number] VISHAL notes whether there has been none or any medical/functional change since admission: - No change since prescreen. HISTORY AND PHYSICAL [id number] JAMIE BELL attests patient continues to be appropriate for IRF: - Continues to be appropriate. DANIEL ALMAZAN MD at 1412 CC: [id number] DICTATION DATE: 02/28/20 1349 MACHINE PACKAGING TECHNICIAN: 02/28/20 1425 ADM IN [place] [id number] [place] [address]
--- NOTE | 2020-03-02 14:32 | NUR ---
IN WC. DENIES NEEDS.
--- NOTE | 2020-03-02 19:54 | NUR ---
PATIENT RECEIVED SITTING UP IN BED. ASSIST WITH INCONTINENCE. NO C/O PAIN OR DISTRESS. BED LOW. ALARM ON. CALL LIGHT WITHIN REACH. WILL CONTINUE TO MONITOR.
[2020-03-02 20:46] VITALS: BP 131/51
--- NOTE | 2020-03-03 01:30 | NUR ---
PATIENT USED CALL LIGHT FOR ASSIST. PATIENT HAD A LARGE VOID ON HER PAD. PATIENT CLEANED, DRIED, & COVERED UP. BED LOW. ALARM ON. CALL LIGHT WITHIN REACH. WILL CONTINUE TO MONITOR.
--- NOTE | 2020-03-03 04:22 | NUR ---
I have reviewed this patient and I concur with the Shift Assessment completed by the Licensed Practical Nurse today this shift.
[2020-03-03 08:00] VITALS: BP 159/55
--- NOTE | 2020-03-03 08:00 | NUR ---
PATIENT IS ALERT/ORIENT. CALL LIGHT WITHIN REACH. VOICES NO NEEDS A THIS TIME.
--- NOTE | 2020-03-03 11:11 | NUR ---
PATIENT WORKING WITH OCCUPATIONAL THERAPIST. HELPING PATIENT WITH A SHOWER
[2020-03-03 19:42] VITALS: BP 137/47
--- NOTE | 2020-03-03 20:30 | NUR ---
PATIENT RESTING IN BED WATCHING TV. NO S/S OF DISTRESS. NO C/O AT THIS TIME. PATIENT HAS 2L NASAL CANNULA PRN. PATIENT IS ON CONTACT ISOLATION FOR VRE IN THE URINE. PATIENT IS UP WITH ASSIST AND WHEELCHAIR TO BATHROOM. PATIENT IS INCONTINENT DURING THE NIGHT OF BOWEL AND BLADDER. CALL LIGHT IN PLACE. WILL CONTINUE TO MONITOR.
--- NOTE | 2020-03-04 02:59 | NUR ---
I have reviewed this patient and I concur with the Shift Assessment completed by the Licensed Practical Nurse today this shift.
[2020-03-04 08:00] VITALS: BP 158/59
--- NOTE | 2020-03-04 14:14 | NUR ---
PATIENT INCONT OF URINE. HELPED TO BATHROOM. STAND BY ASST WITH TRANSFERS
--- NOTE | 2020-03-04 17:48 | NUR ---
SITTING UP IN BED FINISHING SUPPER. HAD LARGE BM TODAY, IS CONSTIPATED ASKED FOR STOOL SOFTENER. ENCOURAGED HER TO DRINK MORE WATER. MIN ASST TO TRANSFER FROM TO BED. WEARING OXYGEN AT PRESENT.
--- NOTE | 2020-03-04 19:00 | NUR ---
PT IN BED WATCHING TV, NO NEEDS NOTED, CONTINUES ON ISO CONTACT VRE, FLUIDS/CALL LIGHT WITHIN REACH
--- NOTE | 2020-03-04 21:30 | NUR ---
PT REQUESTS PAIN MEDICATION FOR BACK PAIN, PRN NORCO Q-8 NOT AVAILABLE UNTIL 0200, 650MG PRN TYLENOL Q-6 GIVEN, FLUIDS/CALL LIGHT WITHIN REACH
--- NOTE | 2020-03-04 22:30 | NUR ---
PT CALLED REQUESTED TO BE CHANGED, HAD URINATED SELF, REQUESTED ICE CREAM AND COLA, GIVEN, PT DRY AND HAPPY, FLUIDS/CALL LIGHT WITHIN REACH
[2020-03-05 01:10] VITALS: BP 150/53
--- NOTE | 2020-03-05 02:44 | NUR ---
NOTED BLOOD ON PAD WHILE CLEANING AND CHANGING PT, C/O SORENESS, PT HAD PLACED A CLEANSING CLOTH IN THE AREA, FOUND A SEBACEOUS CYST BLEEDING IN TWO AREAS, 3CM X 4CM X 1.5CM ON THE LATERAL FOLD PROXIMAL TO THE LABIA, CLEANED WITH SOAP/WATER EXTRACTED MAXIMAL BLOOD/SEROSANGINOUS/YELLOW EXUDATE FROM AREA, RECLEANED PATTED DRY, PLACED MEPILEX DRESSING ON AREA, DID NOT WANT TO BRUISE OR MAKE PT SORE FROM EXTRACTION FROM PRESSING AROUND THE EDGES. WOUND CONSULT ORDERED
[2020-03-05 08:10] VITALS: BP 151/49
[2020-03-05 08:22] LABS: BASOPHILS 0.9 % (0-2); EOSINOPHILS 8.3 % (0-7); HEMATOCRIT 32.9 % (36.0-48.0); IMMATURE GRANULOCYTES 0.3 % (0-5); LYMPHOCYTES 27.5 % (15-50); MCH 27.3 pg (26.0-34.0); MCHC 30.4 g/dL (31.0-37.0); MCV 89.9 fL (80.0-100.0); MEAN PLATELET VOLUME 10.1 fL (7.4-10.4); MONOCYTES 7.3 % (2-11); NEUTROPHILS 55.7 % (40-80); PLATELET COUNT 331 10x3/uL (130-400); RBC 3.66 10x6/uL (4.00-5.40); WBC 7.9 10x3/uL (4.8-10.8)
[2020-03-05 08:33] LABS: ANION GAP 13.4 mmol/L (8-16); CALCIUM 9.4 mg/dL (8.5-10.1); CREATININE - SERUM 5.1 mg/dL (0.6-1.3); POTASSIUM - SERUM 3.4 mmol/L (3.5-5.1)
--- NOTE | 2020-03-05 11:52 | NUR ---
Pt had a ruptured boil/cyst on labia. It had a bloody drainage. Antibiotic ointment has been ordered.
--- NOTE | 2020-03-05 14:18 | NUR ---
LAYING DOWN IN BED RESTING QUIETLY. DENIES NEEDS OR INCREASED PAIN. CALL LIGHT IN REACH. BED IN LOWEST POSITION. SIDE RAILS UP X2.
--- NOTE | 2020-03-05 19:51 | NUR ---
PT RESTING IN BED WITH EYES OPEN. ALERT AND ORIENTED X 3. PT IS INC. OF A VERY LARGE AMOUNT OF URINE. SUMA CARE AND LINEN CHANGE DONE. CONTACT PRECAUTIONS OBSERVED. SR'S ARE UP X 2 IN BED. CALL LIGHT AND BEDSIDE TABLE ARE WITHIN EASY REACH.
[2020-03-05 20:11] VITALS: BP 106/46
--- NOTE | 2020-03-05 22:05 | NUR ---
PT RESTING IN BED WITH EYES OPEN. INC. CARE GIVEN.
--- NOTE | 2020-03-06 00:08 | NUR ---
I have reviewed this patient and I concur with the Shift Assessment completed by the Licensed Practical Nurse today this shift.
--- NOTE | 2020-03-06 05:40 | NUR ---
PT RESTING IN BED WITH EYES CLOSED. AWOKE EASILY TO VERBAL STIMULI. TOLERATED AM MED WITHOUT DIFFICULTY. INC. CARE GIVEN.
--- NOTE | 2020-03-06 08:00 | NUR ---
SHIFT ASSMT COMPLETED.BREAKFAST GIVEN.
[2020-03-06 08:57] VITALS: BP 124/62
--- NOTE | 2020-03-06 12:00 | NUR ---
SITTING UP EATING LUNCH.
--- NOTE | 2020-03-06 19:08 | NUR ---
GREETED PATIENT AND INTRODUCED MYSELF HER NURSE. PATIENT IS RESTING QUIETLY AT THIS TIME. RESPIRATIONS EVEN. NO S/S OF DISTRESS. PT CHANGED OF INCONTINENT URINE. REPOSITIONED FOR COMFORT. CALL LIGHT IN REACH.
[2020-03-06 20:00] VITALS: BP 130/44
--- NOTE | 2020-03-07 02:28 | NUR ---
PT CLEANED OF INCONTINENT URINE. REPOSITIONED FOR COMFORT. CALL LIGHT IN REACH.
--- NOTE | 2020-03-07 06:39 | NUR ---
PT RESTING QUIETLY WITH EYES CLOSED. RESPIRATIONS EVEN. NO S/S OF DISTRESS. CALL LIGHT IN REACH.
[2020-03-07 08:00] VITALS: BP 153/49
--- NOTE | 2020-03-07 08:00 | NUR ---
AWAKE AND ALERT, UP IN BED EATING BREAKFAST, DENIES ANY PAIN AT THIS TIME.
--- NOTE | 2020-03-07 12:00 | NUR ---
I have reviewed this patient and I concur with the Shift Assessment completed by the Licensed Practical Nurse today this shift.
--- NOTE | 2020-03-07 13:29 | NUR ---
Nutrition follow-up: Diet: Regular soft PO Intake 75-100% of meals Labs reviewed Wt: 238# +BM RDN following.
--- NOTE | 2020-03-07 14:10 | NUR ---
CARE TEAM MEETING: PATIENT DOING WELL IN THERAPY AND WILL DISCHARGE HOME ON 03/09/20. WILL CONTINUE TO FOLLOW WITH PATIENT.
[2020-03-07 14:26] VITALS: BP 153/49
--- NOTE | 2020-03-07 16:19 | NUR ---
RESTING IN BED WITH EYES CLOSED, PATIENT C/O NAUSEA WAS GIVEN ZOFRON AND MED EFFECTIVE, DENIES ANY PAIN AT THIS TIME, C/L AND H2O IN REACH
--- NOTE | 2020-03-07 20:00 | NUR ---
PATIENT RECEIVED SITTING UP IN BED WATCHING TV. ASSESSMENT & VITAL SIGNS DONE. BED LOW. CALL LIGHT WITHIN REACH. ALARM ON. WILL CONTINUE TO MONITOR.
--- NOTE | 2020-03-07 20:40 | NUR ---
PATIENT USED CALL LIGHT FOR PAD CHANGE. PATIENT HAD MEDIUM YELLOW COLORED VOID ON BED PAD. PATIENT CLEANED & NEW PAD APPLIED UNDER PATIENT. PATIENT "CAN'T FEEL WHEN SHE HAS TO VOID." BED LOW. CALL LIGHT WITHIN REACH. WILL CONTINUE TO MONITOR.
[2020-03-07 21:08] VITALS: BP 129/50
--- NOTE | 2020-03-07 22:05 | NUR ---
PATIENT USED CALL LIGHT FOR ASSIST. PATIENT HAD LARGE YELLOW COLORED VOID ON PAD. PATIENT CLEANED & NEW PAD APPLIED UNDER PATIENT. BED LOW. ALARM ON. CALL LIGHT WIOTHIN REACH. WILL CONTINUE TO MONITOR.
--- NOTE | 2020-03-08 02:15 | NUR ---
PATIENT USED CALL LIGHT FOR ASSIT. PATIENT TURNED OVER TO RIGHT SIDE. YELLOW COLORED VOID ON BED PAD. PATIENT CLEANED. NEW PAD APPLIED UNDER PATIENT. PATIENT ON BACK, COVERED UP. CALL LIGHT WITHIN REACH. WILL CONTINUE TO MONITOR.
--- NOTE | 2020-03-08 03:53 | NUR ---
I have reviewed this patient and I concur with the Shift Assessment completed by the Licensed Practical Nurse today this shift.
--- NOTE | 2020-03-08 04:50 | NUR ---
PATIENT WET. PADS CHANGED. BUTTOCKS & PERIAREA CLEANED. SKIN INTACT. BED LOW. CALL LIGHT & BESIDE TABLE WITHIN REACH. WILL CONTINUE TO MONITOR.
[2020-03-08 08:00] VITALS: BP 148/59
--- NOTE | 2020-03-08 08:00 | NUR ---
PATIENT IS ALERT/ORIENT. CALL LIGHT WITHIN REACH. VOICES NO NEEDS AT THIS TIME. WILL CONTINUE WITH PLAN OF CARE
--- NOTE | 2020-03-08 08:15 | NUR ---
PRN ZOFRAN GIVEN PER PATIENT REQUEST FOR NAUSEA
--- NOTE | 2020-03-08 09:15 | NUR ---
MYILCON GIVEN PER PATIENT REQUEST
--- NOTE | 2020-03-08 13:10 | NUR ---
PATIENT BLADDER SCANNED DUE TO C/O LOWER ABDOMENAL PAIN/DISC. NO RETENTION FOUND. ORDERS RECEIVED FOR A KUB
--- NOTE | 2020-03-08 20:53 | NUR ---
INTRODUCED SELF TO PT. SHE IS ALERT AND ORIENTED X4. SHE IS ABLE TO VOICE HER CONCERNS AT THIS TIME. ASSIST WITH HYGIENE CARE. PROVIDED PM MEDICATIONS PRESCRIBED. BED IN LOWEST POSITION CALL LIGHT WITHIN REACH. WILL CONTINUE TO MONITOR.
[2020-03-08 20:54] VITALS: BP 133/47
--- NOTE | 2020-03-08 23:39 | NUR ---
PT IS IN BED RESTING CALMLY WITH EYES OPEN. NO DISTRESS NOTED. BED ALARM WAIVER IN PLACE. VOICED NO CONCERNS OR NEEDS AT THIS TIME. CALL LIGHT IN REACH AND BED IN LOWEST POSITION. WILL CONTINUE TO MONITOR.
--- NOTE | 2020-03-09 03:42 | NUR ---
PT IS RESTING CALMLY IN BED. NO DISTRESS NOTED AT THIS TIME. SHE HAS O2 VIA NC@2L. BED IN LOWEST POSITION. CALL LIGHT WITHIN REACH. WILL CONTINUE TO MONITOR.
--- NOTE | 2020-03-09 06:34 | NUR ---
PT RESTING CALMLY IN BED WITH EYES CLOSED. SHE DENIES ANY NEEDS AT THIS TIME. SHE IS CLEAN AND DRY. WILL CONTINUE TO MONITOR.
[2020-03-09 07:17] LABS: EOSINOPHILS 7.7 % (0-7); HEMATOCRIT 32.5 % (36.0-48.0); HEMOGLOBIN 9.9 g/dL (12-16); IMMATURE GRANULOCYTES 0.2 % (0-5); LYMPHOCYTES 30.8 % (15-50); MCH 28.3 pg (26.0-34.0); MCHC 30.5 g/dL (31.0-37.0); MCV 92.9 fL (80.0-100.0); MONOCYTES 9.5 % (2-11); NEUTROPHILS 50.8 % (40-80); PLATELET COUNT 266 10x3/uL (130-400); RDW 15.1 % (11.5-14.5); WBC 6.2 10x3/uL (4.8-10.8)
[2020-03-09 07:40] LABS: ANION GAP 18.5 mmol/L (8-16); CALCIUM 9.2 mg/dL (8.5-10.1); CARBON DIOXIDE 21.8 mmol/L (21.0-32.0); CREATININE - SERUM 5.3 mg/dL (0.6-1.3); POTASSIUM - SERUM 4.3 mmol/L (3.5-5.1)
--- NOTE | 2020-03-09 08:00 | NUR ---
PATIENT SITTING UP IN BED TO EAT BREAKFAST. CALL LIGHT WITHIN REACH. VOICES NO NEEDS AT THIS TIME. PLANS TO DISCHARGE TO HOME TODAY
[2020-03-09] MEDS ORDERED: HYDROCODON-ACE1 EA10 PO (09:19)
--- NOTE | 2020-03-09 10:24 | NUR ---
PATIENT TO BE DISCHARGED TO HOME TODAY. DR Macho ALMAZAN INTO SEE PATIENT. DISCHARGED ORDERS WRITTEN
--- NOTE | 2020-03-09 10:29 | NUR ---
PATIENT DISCHARGING HOME TODAY WITH FAMILY. [facility] WILL RESUME THERAPY AT HOME.NO NEW DME NEEDED AT THIS TIME. DR. SHORT 03/20/20 @ 10:30. PATIENT CHOICE FORM FOR HOME HEALTH AND FM FORMS SIGNED, EXPLAINED ONE GIVEN TO PATIENT AND ONE FILED IN CHART. NO COMPARE DATA REVIEWED WITH PATIENT SHE IS A CLIENT OF [facility]. DISCHARGE INSTRUCTIONS FAXED TO PCP, HOME HEALTH AND REVIEWED WITH PATIENT PER PRIMARY NURSE.
--- NOTE | 2020-03-09 13:00 | NUR ---
DISCHARGE INSTRUCTIONS GIVEN TO PATIENT. DISCHARGE MEDICATIONS CALLED INTO [facility]
== END 2020-03-09 16:00 | disposition home health service (06) | DRG 91 ==
LOC: D.REHAB 16:15
PROVIDERS: ADMIT Emergency Medicine; ATTEND Emergency Medicine
DX: G72.89 Other specified myopathies (principal); I50.33 Acute on chronic diastolic (congestive) heart failure; I21.4 Non-ST elevation (NSTEMI) myocardial infarction; N17.9 Acute kidney failure, unspecified; E87.1 Hypo-osmolality and hyponatremia; I13.0 Hypertensive heart and chronic kidney disease with heart failure and stage 1 through stage 4 chronic kidney disease, or unspecified chronic kidney disease; N18.4 Chronic kidney disease, stage 4 (severe); D64.9 Anemia, unspecified; J45.909 Unspecified asthma, uncomplicated; I25.10 Atherosclerotic heart disease of native coronary artery without angina pectoris; J44.9 Chronic obstructive pulmonary disease, unspecified; F32.9 Major depressive disorder, single episode, unspecified

== ENCOUNTER 2020-03-19 07:15 | Inpatient (IN) | payer MEDICARE ==
[~2020-03-19] VITALS: Ht 160 cm; Wt 110.2 kg
[2020-03-19 07:58] LABS: BASOPHILS 0.4 % (0-2); EOSINOPHILS 3.9 % (0-7); HEMATOCRIT 31.2 % (36.0-48.0); HEMOGLOBIN 9.6 g/dL (12-16); IMMATURE GRANULOCYTES 0.1 % (0-5); LYMPHOCYTES 18.1 % (15-50); MCH 27.8 pg (26.0-34.0); MCHC 30.8 g/dL (31.0-37.0); MCV 90.4 fL (80.0-100.0); MONOCYTES 7.8 % (2-11); NEUTROPHILS 69.7 % (40-80); PLATELET COUNT 243 10x3/uL (130-400); RBC 3.45 10x6/uL (4.00-5.40); RDW 15.5 % (11.5-14.5); WBC 6.7 10x3/uL (4.8-10.8)
[2020-03-19 08:00] VITALS: BP 148/81
[2020-03-19 08:13] LABS: CALC OSMOLALITY 296 mosm/kg (275-300); CALCIUM 9.5 mg/dL (8.5-10.1); CARBON DIOXIDE 19.1 mmol/L (21.0-32.0); CHLORIDE - SERUM 104 mmol/L (98-107); CREATININE - SERUM 4.2 mg/dL (0.6-1.3); GLUCOSE 97 mg/dL (74-106); POTASSIUM - SERUM 4.4 mmol/L (3.5-5.1); PROTIME 13.1 SECONDS (11.6-15.0); SODIUM 138 mmol/L (136-145); UREA NITROGEN 71 mg/dL (7-18); eGFR NON AFRICAN AMERICAN 11 mL/min (90-120)
[2020-03-19 08:14] LABS: APTT 33.7 SECONDS (22.8-39.4)
[2020-03-19 08:28] LABS: ALKALINE PHOSPHATASE 78 U/L (30-120); ALT (SGPT) 9 U/L (10-68); BILIRUBIN - TOTAL 0.28 mg/dL (0.2-1.3); CKMB 1.8 U/L (0.0-3.6); CREATINE KINASE 51 UL (21-215); MAGNESIUM - SERUM 2.3 mg/dL (1.8-2.4); PROTEIN - SERUM 8.3 g/dL (6.4-8.2); TROPONIN-I 0.042 ng/mL (0.000-0.060)
[2020-03-19 09:00] VITALS: BP 164/81
[2020-03-19 10:00] VITALS: BP 160/81
--- NOTE | 2020-03-19 11:30 | NUR ---
ARRIVE TO ROOM VIA WHEELCHAIR FROM ER. ALERT AND ORIENTED X4. AMBULATES TO BED WITH STAND BY ASSIST. REFUSE SCDs DUE TO BRUISE ON LOWER RT LEG. SINUS RYTHM 85 WITH 1st DEGREE BLOCK. IV RT THUMB SL. NO SIGNS OF DISTRESS. CONTINUE PLAN OF CARE AND SAFETY PRECAUTIONS. CONTINUE ADMISSION PROCESS.
[2020-03-19 12:11] VITALS: BP 179/68; BMI 40.8
[2020-03-19 14:49] LABS: CKMB 1.9 U/L (0.0-3.6); CREATINE KINASE 53 UL (21-215)
[2020-03-19 14:56] LABS: TROPONIN-I 0.266 ng/mL (0.000-0.060)
[2020-03-19 15:01] LABS: % SATURATION 25 % (15-55); IRON 53 ug/dl (35-150); TOTAL IRON BIND CAPACITY 207 ug/dl (260-445); UNSAT IRON BIND CAPACITY 154 ug/dl (150-375)
[2020-03-19 17:19] VITALS: BP 191/81
[2020-03-19 19:49] LABS: PLT FUNCT.(P2Y12) PLAVIX 65 PRU (194-418)
[2020-03-19 20:00] VITALS: BP 166/53
--- NOTE | 2020-03-19 20:09 | NUR ---
RECEIVED BEDSIDE REPORT. PATIENT IS ALERT AND ORIENTED, RESTING COMFORTABLY IN BED. RESPIRATIONS ARE EVEN AND UNLABORED. NO S/S OF DISTRESS. NO C/OPAIN. CALL LIGHT WITHIN REACH. WILL CPOC.
[2020-03-19 20:26] LABS: CKMB 2.3 U/L (0.0-3.6); CREATINE KINASE 55 UL (21-215)
[2020-03-19 20:29] LABS: TROPONIN-I 0.322 ng/mL (0.000-0.060)
[2020-03-20 01:12] VITALS: BP 130/50
[2020-03-20 02:38] LABS: BASOPHILS 0.4 % (0-2); EOSINOPHILS 5.5 % (0-7); HEMATOCRIT 28.7 % (36.0-48.0); HEMOGLOBIN 8.6 g/dL (12-16); IMMATURE GRANULOCYTES 0.2 % (0-5); LYMPHOCYTES 28.2 % (15-50); MCH 27.5 pg (26.0-34.0); MCV 91.7 fL (80.0-100.0); MEAN PLATELET VOLUME 8.8 fL (7.4-10.4); MONOCYTES 9.5 % (2-11); NEUTROPHILS 56.2 % (40-80); PLATELET COUNT 207 10x3/uL (130-400); RBC 3.13 10x6/uL (4.00-5.40); RDW 15.9 % (11.5-14.5); WBC 4.8 10x3/uL (4.8-10.8)
[2020-03-20 03:25] LABS: ALBUMIN 2.4 g/dL (3.4-5.0); ALKALINE PHOSPHATASE 107 U/L (30-120); BILIRUBIN - TOTAL 0.35 mg/dL (0.2-1.3); CALC OSMOLALITY 295 mosm/kg (275-300); CALCIUM 8.6 mg/dL (8.5-10.1); CARBON DIOXIDE 21.6 mmol/L (21.0-32.0); CHLORIDE - SERUM 108 mmol/L (98-107); CKMB 1.9 U/L (0.0-3.6); CREATINE KINASE 43 UL (21-215); CREATININE - SERUM 4.2 mg/dL (0.6-1.3); GLUCOSE 80 mg/dL (74-106); MAGNESIUM - SERUM 2.1 mg/dL (1.8-2.4); POTASSIUM - SERUM 4.7 mmol/L (3.5-5.1); PROTEIN - SERUM 6.7 g/dL (6.4-8.2); SODIUM 139 mmol/L (136-145); UREA NITROGEN 65 mg/dL (7-18); eGFR NON AFRICAN AMERICAN 11 mL/min (90-120)
[2020-03-20 03:26] LABS: ALT (SGPT) 123 U/L (10-68); TROPONIN-I 0.291 ng/mL (0.000-0.060)
[2020-03-20 04:05] VITALS: BP 133/50
[2020-03-20 05:21] LABS: BILIRUBIN NEGATIVE (NEGATIVE); GLUCOSE NEGATIVE (NEGATIVE); KETONE NEGATIVE (NEGATIVE); NITRITE POSITIVE (NEGATIVE); UROBILINOGEN NORMAL (NORMAL)
[2020-03-20 05:24] LABS: BACTERIA MODERATE /hpf (NEGATIVE); EPITHELIAL CELLS 0-5 /hpf (0-5)
[2020-03-20 07:53] VITALS: BP 122/52
[2020-03-20 10:21] VITALS: Ht 160 cm; Wt 110.2 kg
[2020-03-20 11:28] VITALS: BP 137/49
[2020-03-20 16:10] VITALS: BP 137/52
--- NOTE | 2020-03-20 18:12 | NUR ---
C/O OF ITCHY FACE SANDRA, GETTING WORSE. JEFFERSON NOTIFIED. BENEDYL 25MG GIVEN IVP. WILL MONITOR.
--- NOTE | 2020-03-20 19:50 | NUR ---
PATIENT IS ALERT AND ORIENTED, RESTING COMFORTABLY IN BED. RESPIRATIONS ARE EVEN AND UNLABORED. NO S/S OF DISTRESS. NO C/O PAIN. CALL LIGHT WITHIN REACH. WILL CPOC.
[2020-03-20 22:16] VITALS: BP 121/51
[2020-03-21 00:40] VITALS: BP 128/53
[2020-03-21 05:29] VITALS: BP 134/55
[2020-03-21 05:55] LABS: BASOPHILS 0.6 % (0-2); EOSINOPHILS 6.3 % (0-7); HEMATOCRIT 28.4 % (36.0-48.0); HEMOGLOBIN 8.5 g/dL (12-16); IMMATURE GRANULOCYTES 0.5 % (0-5); LYMPHOCYTES 25.7 % (15-50); MCH 27.4 pg (26.0-34.0); MCHC 29.9 g/dL (31.0-37.0); MCV 91.6 fL (80.0-100.0); MEAN PLATELET VOLUME 9.5 fL (7.4-10.4); MONOCYTES 9.1 % (2-11); NEUTROPHILS 57.8 % (40-80); PLATELET COUNT 231 10x3/uL (130-400); RDW 16.3 % (11.5-14.5)
[2020-03-21 06:16] LABS: ALBUMIN 2.5 g/dL (3.4-5.0); ANION GAP 15.1 mmol/L (8-16); BILIRUBIN - TOTAL 0.36 mg/dL (0.2-1.3); CALCIUM 8.8 mg/dL (8.5-10.1); CARBON DIOXIDE 20.9 mmol/L (21.0-32.0); CREATININE - SERUM 4.5 mg/dL (0.6-1.3); MAGNESIUM - SERUM 2.3 mg/dL (1.8-2.4); PROTEIN - SERUM 6.9 g/dL (6.4-8.2)
[2020-03-21 06:28] LABS: WBC 6.3 10x3/uL (4.8-10.8)
--- NOTE | 2020-03-21 07:33 | NUR ---
ASSESSMENT DONE. DENIES NEEDS
[2020-03-21 08:40] VITALS: BP 148/64
[2020-03-21 11:29] VITALS: BP 144/44
--- NOTE | 2020-03-21 12:43 | NUR ---
I have reviewed this patient and I concur with the Shift Assessment completed by the Licensed Practical Nurse today this shift.
[2020-03-21 15:56] VITALS: BP 163/55
--- NOTE | 2020-03-21 18:19 | NUR ---
WITHOUT CHANGES OR DISTRESS NOTED AT THIS TIME. DENIES NEEDS
--- NOTE | 2020-03-21 19:40 | NUR ---
RECEIVED BEDSIDE REPORT. PATIENT ALERT AND ORIENTED, RESTING COMFORTABLY IN BED. RESPIRATIONS ARE EVEN AND UNLABORED. NO S/S OF DISTRESS. NO C/O PAIN. CALL LIGHT WITHIN REACH. WILL CPOC.
[2020-03-21 20:00] VITALS: BP 168/55
[2020-03-22] VITALS: BP 151/53
[2020-03-22 04:00] VITALS: BP 121/66
[2020-03-22 06:00] LABS: BASOPHILS 0.5 % (0-2); EOSINOPHILS 5.8 % (0-7); HEMATOCRIT 29.6 % (36.0-48.0); HEMOGLOBIN 8.9 g/dL (12-16); IMMATURE GRANULOCYTES 0.3 % (0-5); LYMPHOCYTES 22.3 % (15-50); MCH 27.7 pg (26.0-34.0); MCHC 30.1 g/dL (31.0-37.0); MCV 92.2 fL (80.0-100.0); MEAN PLATELET VOLUME 9.1 fL (7.4-10.4); MONOCYTES 10.7 % (2-11); NEUTROPHILS 60.4 % (40-80); PLATELET COUNT 244 10x3/uL (130-400); RBC 3.21 10x6/uL (4.00-5.40); RDW 16.2 % (11.5-14.5); WBC 6.6 10x3/uL (4.8-10.8)
[2020-03-22 06:47] LABS: ALBUMIN 2.5 g/dL (3.4-5.0); ANION GAP 16.7 mmol/L (8-16); BILIRUBIN - TOTAL 0.32 mg/dL (0.2-1.3); CALCIUM 8.7 mg/dL (8.5-10.1); CARBON DIOXIDE 20.2 mmol/L (21.0-32.0); CREATININE - SERUM 4.5 mg/dL (0.6-1.3); MAGNESIUM - SERUM 2.1 mg/dL (1.8-2.4); POTASSIUM - SERUM 4.9 mmol/L (3.5-5.1); PROTEIN - SERUM 6.4 g/dL (6.4-8.2)
[2020-03-22 08:08] LABS: % SATURATION 28 % (15-55); IRON 46 ug/dl (35-150); TOTAL IRON BIND CAPACITY 162 ug/dl (260-445); UNSAT IRON BIND CAPACITY 116 ug/dl (150-375)
[2020-03-22 10:16] LABS: BILIRUBIN NEGATIVE (NEGATIVE); GLUCOSE NEGATIVE (NEGATIVE); KETONE NEGATIVE (NEGATIVE); NITRITE NEGATIVE (NEGATIVE); UROBILINOGEN NORMAL (NORMAL)
[2020-03-22 10:17] LABS: AMORPHOUS SEDIMENT <1+ /lpf (NONE SEEN); BACTERIA FEW /hpf (NEGATIVE); EPITHELIAL CELLS RARE /hpf (0-5); RED CELLS - URINE OCC /hpf (0-5); WHITE CELLS - URINE 25-50 /hpf (NEGATIVE)
[2020-03-22 11:09] VITALS: BP 168/64
--- NOTE | 2020-03-22 13:38 | NUR ---
Nutrition Follow-up: Eating well. Denies N/V. States she feels "a little bit" constipated; states she takes a stool softener at home. Diet: Cardiac PO intake: 88% avg x 8 meals Wt: 242# (03/22); 236.9# (03/20) Last BM: 03/16 per pt Labs noted: Alb 2.5, K+ 4.9, GFR 10 Meds noted: Nephrovite, Bumex, Protonix, electrolyte protocol -Monitor wt. -RD following.
[2020-03-22 13:49] VITALS: BP 143/46
--- NOTE | 2020-03-22 16:24 | MORECARE ---
CASE MANAGEMENT DISCHARGE SUMMARY PATIENT: JAMIE BELL UNIT: [id number] ADM DATE: 03/19/20 AGE: 69 : 48 SEX: F ROOM/BED: D.[facility]8 AUTHOR: LINDA YUEN PHYSICIAN: REFERRING PHYSICIAN: BETH RICKS MD DATE OF SERVICE: 03/22/20 Discharge Plan Patient Name: JAMIE BELL [facility] [facility] 1950 Planned Disposition: Home with Home Health Anticipated Discharge Date: Discharge Date: Expected LOS: Initial Reviewer: [email or web address] Initial Review Date: 03/22/2020 Generated: 03/22/20 5:23 pm DCPIA - Discharge Planning Initial Assessment Updated by [email or web address]: Isabel Valdez on 03/22/20 4:21 pm * Is the patient Alert and Oriented? Yes * PCP Dr. Valerio * [facility] in [place] * Preadmission Environment Home Alone * ADLs Partial Dependent * Partial ADLs (Assistance needed) Ambulation * Equipment Other Oxygen Walker Wheelchair * Other Equipment Portable oxygen * List name and contact numbers for known caregivers / representatives who currently or will assist patient after discharge: Ivis Cox [facility] - [phone] * Verbal permission to speak to the caregivers and representatives has been obtained from the patient. Yes * Community resources currently utilized Home Health Private Duty Care * Please name any agencies selected above. [facility] Does not know name of private duty care agency * Additional services required to return to the preadmission environment? Yes * Can the patient safely return to the preadmission environment? Yes * Has this patient been hospitalized within the prior 30 days at any hospital? Yes External Providers External Provider: [facility] Next Contact Date: Service Request Date: Service Type: Resolution: Reviewer: Comments: Patient Name: JAMIE BELL Page [phone] at 1624 All edits/amendments must be made on the electronic document DICTATION DATE: 03/22/201622 LOCAL INTERMODAL TRUCK DRIVER: SUSY 03/22/20 162 RPT#: [id number] DC DATE: STATUS: ADM IN [facility] [address] [place] [address] END OF REPORT
--- NOTE | 2020-03-22 16:33 | MORECARE ---
CASE MANAGEMENT DISCHARGE SUMMARY PATIENT: JAMIE BELL UNIT: [id number] ADM DATE: 03/19/20 AGE: 69 : 48 SEX: F ROOM/BED: D.7850 AUTHOR: WILFRID,DOC PHYSICIAN: REFERRING PHYSICIAN: BETH RICKS MD DATE OF SERVICE: 03/22/20 Discharge Plan Patient Name: JAMIE BELL Facility: [facility]:[place] : 1950 Planned Disposition: Home with Home Health Anticipated Discharge Date: Discharge Date: Expected LOS: Initial Reviewer: [email or web address] Initial Review Date: 03/22/2020 Generated: 03/22/20 5:32 pm Comments DCP- Discharge Planning Updated by [email or web address]: Isabel Valdez on 03/22/20 3:[address] Patient Name: JAMIE BELL Admission Status: ER Accout number: [id number] Admission Date: 03-19-2020 : 1950 Admission Diagnosis:PNEUMONIA, UNSPECIFIED ORGANISM Attending: BETH RICKS Current LOS: 3 Anticipated DC Date: Planned Disposition: Home with Home Health Primary Insurance: MEDICARE A & B Discharge Planning Comments: CM met with patient to complete initial dc planning assessment. CM educated patient on the CM role and verbal consent given by patient to complete assessment. Patient lives at home alone. States she used to have private duty care with [facility], but they are no longer in business and had to change companies. States she will call the new company when discharged (she is unsure of the name). At discharge patient plans to return and feels this is a safe discharge. CM discussed availability of home health, rehab services, and medical equipment. Patient states she would like to continue therapy with [facility]. She will need a resumption of care order. States her nebulizer is broken and needs a new nebulizer and also needs a new Rx. I called [facility] and they have her on services for her oxygen and will get a nebulizer and her Duo-neb. Efrain states Duo-neb will be available tomorrow, clinical and order faxed to [facility]. CM will continue to follow and will assist as needed with dc plans/needs. Airline Counter Agent: Isabel Valdez DCPIA - Discharge Planning Initial Assessment Updated by [id number]: Isabel Valdez on 03/22/20 4:21 pm * Is the patient Alert and Oriented? Yes * PCP Dr. Valerio * Pharmacy [facility] in [place] * Preadmission Environment Home Alone * ADLs Partial Dependent * Partial ADLs (Assistance needed) Ambulation * Equipment Other Oxygen Walker Wheelchair * Other Equipment Portable oxygen * List name and contact numbers for known caregivers / representatives who currently or will assist patient after discharge: Ivis Cox [facility] - [phone] * Verbal permission to speak to the caregivers and representatives has been obtained from the patient. Yes * Community resources currently utilized Home Health Private Duty Care * Please name any agencies selected above. [facility] Does not know name of private duty care agency * Additional services required to return to the preadmission environment? Yes * Can the patient safely return to the preadmission environment? Yes * Has this patient been hospitalized within the prior 30 days at any hospital? Yes Last DP export: 03/22/20 3:24 p Patient Name: JAMIE BELL Page [id number] at 1633 All edits/amendments must be made on the electronic document DICTATION DATE: 03/22/20 163 LEISURE TRAVEL AGENT: SUSY 03/22/201631 RPT#: [id number] DC DATE: STATUS: ADM IN [facility] [address] [place] [address] END OF REPORT
[2020-03-22 18:31] VITALS: BP 163/69
[2020-03-22 20:00] VITALS: BP 129/54
--- NOTE | 2020-03-23 02:46 | NUR ---
I have reviewed this patient and I concur with the Shift Assessment completed by the Licensed Practical Nurse today this shift.
[2020-03-23 04:00] VITALS: BP 110/49
[2020-03-23 05:31] LABS: BASOPHILS 0.3 % (0-2); EOSINOPHILS 5.5 % (0-7); HEMATOCRIT 29.6 % (36.0-48.0); HEMOGLOBIN 8.8 g/dL (12-16); IMMATURE GRANULOCYTES 0.2 % (0-5); LYMPHOCYTES 21.3 % (15-50); MCH 27.8 pg (26.0-34.0); MCHC 29.7 g/dL (31.0-37.0); MCV 93.4 fL (80.0-100.0); MEAN PLATELET VOLUME 9.1 fL (7.4-10.4); MONOCYTES 9.7 % (2-11); PLATELET COUNT 209 10x3/uL (130-400); RBC 3.17 10x6/uL (4.00-5.40); RDW 16.2 % (11.5-14.5)
[2020-03-23 06:36] LABS: ALBUMIN 2.5 g/dL (3.4-5.0); ANION GAP 19.6 mmol/L (8-16); BILIRUBIN - TOTAL 0.4 mg/dL (0.2-1.3); CARBON DIOXIDE 17.1 mmol/L (21.0-32.0); CREATININE - SERUM 4.5 mg/dL (0.6-1.3); MAGNESIUM - SERUM 2.1 mg/dL (1.8-2.4); POTASSIUM - SERUM 4.7 mmol/L (3.5-5.1); PROTEIN - SERUM 6.5 g/dL (6.4-8.2)
--- NOTE | 2020-03-23 07:15 | NUR ---
RECEIVED PT IN BED EYES CLOSED RESP UNLABORED SKIN W/D COLOR WNL NAD NOTED
[2020-03-23 09:14] VITALS: BP 139/74
[2020-03-23 12:18] VITALS: BP 134/65
[2020-03-23 17:15] VITALS: BP 138/66
--- NOTE | 2020-03-23 19:30 | NUR ---
REPORT RECIEVED AND INITIAL ROUNDS COMPLETED. PT RESTING IN BED. ALERT/ORIENTED. CALL LIGHT IN REACH.
[2020-03-23 21:21] VITALS: BP 109/51
[2020-03-24] VITALS: BP 119/48
[2020-03-24 04:49] VITALS: BP 107/53
[2020-03-24 07:09] LABS: BASOPHILS 0.5 % (0-2); EOSINOPHILS 4.9 % (0-7); HEMATOCRIT 26.8 % (36.0-48.0); IMMATURE GRANULOCYTES 0.2 % (0-5); LYMPHOCYTES 18.6 % (15-50); MCH 27.3 pg (26.0-34.0); MCHC 29.9 g/dL (31.0-37.0); MCV 91.5 fL (80.0-100.0); MEAN PLATELET VOLUME 9.2 fL (7.4-10.4); MONOCYTES 10.2 % (2-11); NEUTROPHILS 65.6 % (40-80); PLATELET COUNT 245 10x3/uL (130-400); RBC 2.93 10x6/uL (4.00-5.40); RDW 16.4 % (11.5-14.5); WBC 6.6 10x3/uL (4.8-10.8)
[2020-03-24 07:27] LABS: ALBUMIN 2.4 g/dL (3.4-5.0); ANION GAP 15.1 mmol/L (8-16); BILIRUBIN - TOTAL 0.32 mg/dL (0.2-1.3); CARBON DIOXIDE 20.4 mmol/L (21.0-32.0); CREATININE - SERUM 4.8 mg/dL (0.6-1.3); POTASSIUM - SERUM 4.5 mmol/L (3.5-5.1); PROTEIN - SERUM 6.8 g/dL (6.4-8.2)
--- NOTE | 2020-03-24 09:05 | NUR ---
PT AWAKE AND ORIENTED WHEN I ENTERED ROOM. C/O BREAKFAST TRAY NOT HAVING THE GRAVY SHE WANTED BUT ALSO DID NOT WANT ME TO ORDER IT. SMALL COMPLAINTS RESOLVED. NO QUESTIONS OR COMMENTS. CL IN REACH, SRX2.
[2020-03-24 10:44] VITALS: BP 158/53
[2020-03-24 12:59] VITALS: BP 154/57
--- NOTE | 2020-03-24 15:27 | NUR ---
PT AWAKE AND ORIENTED, WAS SITTING UP IN CHAIR FOR MOST THE DAY, CALLED INTO HER ROOM SCREAMING, A LARGE MOROCHO OR WATERBUG WAS CRAWLING ALL OVER HER BED. IT WAS ALSO SPOTTED BY THE AID, BUG DISAPEARED INTO PTS BED. COULD NOT RECOVER IT, REMOVED THE BED AND PLACED A CLEAN ONE IN HER ROOM. NO COMPLAINTS OR CONCERNS, CL IN REACH, SRX2.
[2020-03-24 16:00] VITALS: BP 139/62
--- NOTE | 2020-03-24 17:57 | NUR ---
I CONCUR WITH THIS FLUE CLEANER ASSESSMENT OF THIS PATIENT.
--- NOTE | 2020-03-24 19:50 | NUR ---
REPORT RECIEVED AND INITIAL ROUNDS COMPLETED. PT RESTING IN BED. PLAYING ON HER PHONE. SR PER TELEMETRY. O2 @ 2L/NC WITH NONLABORED RESPIRATIONS. DIMINISHED BREATH SOUNDS. ENCOURAGED CONTINUED USE OF FLUTTER VALVE AND INCENTIVE SPIROMETER FOR LUNG IMPROVEMENT. PT ALSO QUESTIONING ABOUT HAVING TO POTENTIALLY HAVE A FISTULA PLACED FOR DIALYSIS. GAVE INFORMATION AND FEEDBACK TO PATIENT. CPOC.
[2020-03-24 20:00] VITALS: BP 109/44
[2020-03-25] VITALS: BP 90/35
--- NOTE | 2020-03-25 02:57 | NUR ---
WAS GIVEN NORCO EARLIER AND IS NOW RESTING. CPOC.
[2020-03-25 04:00] VITALS: BP 107/34
[2020-03-25 06:54] LABS: BASOPHILS 0.5 % (0-2); EOSINOPHILS 5.5 % (0-7); HEMATOCRIT 25.9 % (36.0-48.0); IMMATURE GRANULOCYTES 0.2 % (0-5); LYMPHOCYTES 20.8 % (15-50); MCH 27.9 pg (26.0-34.0); MCHC 30.9 g/dL (31.0-37.0); MCV 90.2 fL (80.0-100.0); MEAN PLATELET VOLUME 9.2 fL (7.4-10.4); MONOCYTES 12.3 % (2-11); NEUTROPHILS 60.7 % (40-80); PLATELET COUNT 233 10x3/uL (130-400); RBC 2.87 10x6/uL (4.00-5.40); RDW 16.3 % (11.5-14.5); WBC 6.4 10x3/uL (4.8-10.8)
[2020-03-25 07:15] LABS: ALBUMIN 2.3 g/dL (3.4-5.0); ANION GAP 16.4 mmol/L (8-16); BILIRUBIN - TOTAL 0.35 mg/dL (0.2-1.3); CARBON DIOXIDE 18.8 mmol/L (21.0-32.0); CREATININE - SERUM 4.8 mg/dL (0.6-1.3); POTASSIUM - SERUM 4.2 mmol/L (3.5-5.1); PROTEIN - SERUM 6.7 g/dL (6.4-8.2)
[2020-03-25 09:18] VITALS: BP 153/50
--- NOTE | 2020-03-25 09:50 | NUR ---
PT AWAKE AND ORIENTED, LYING IN BED. PT IS CONCENRED WITH HER TEA COLOURED URINGE, SPOKE TO RENAL CHILDCARE DIRECTOR AND DECIDED TO AN IN AND OUT CATH TO OBTAIN STERILE SPECIMEN. WILL OBTAIN. CL IN REACH, SRX2
[2020-03-25 10:49] LABS: BILIRUBIN NEGATIVE (NEGATIVE); GLUCOSE NEGATIVE (NEGATIVE); KETONE NEGATIVE (NEGATIVE); NITRITE NEGATIVE (NEGATIVE); UROBILINOGEN NORMAL (NORMAL)
[2020-03-25 10:51] LABS: BACTERIA FEW /hpf (NEGATIVE); WHITE CELLS - URINE >50 /hpf (NEGATIVE)
[2020-03-25] MEDS ORDERED: LEVOFLOXACIN500 MG PO (10:55)
[2020-03-25] MEDS ORDERED: OMNICEF300 MG PO (10:55)
[2020-03-25] MEDS ORDERED: MUCINEX DM ER1 EAC1 PO (10:57)
[2020-03-25] MEDS ORDERED: TESSALON PERLE100 MG PO (10:57)
[2020-03-25] MEDS ORDERED: FLORAJEN3 CAPS460 MG PO (10:57)
[2020-03-25] MEDS ORDERED: SODIUM BICARBO650 MG PO (10:58)
[2020-03-25] MEDS ORDERED: NEPHRO-VITE RX1 TAB PO (10:58)
[2020-03-25] MEDS ORDERED: Bumex PO (10:59)
--- NOTE | 2020-03-25 11:46 | MORECARE ---
CASE MANAGEMENT DISCHARGE SUMMARY PATIENT: JAMIE BELL UNIT: [id number] ADM DATE: 03/19/20 AGE: 69 : 48 SEX: F ROOM/BED: D.0800 AUTHOR: WILFRID,DOC PHYSICIAN: REFERRING PHYSICIAN: BETH RICKS MD DATE OF SERVICE: 03/25/20 Discharge Plan Patient Name: JAMIE BELL Facility: [facility]:[place] : 1950 Planned Disposition: Home with Home Health Anticipated Discharge Date: Discharge Date: Expected LOS: Initial Reviewer: [email or web address] Initial Review Date: 03/22/2020 Generated: 03/25/20 12:46 pm Comments DCP- Discharge Planning Updated by [email or web address]: Isabel Valdez on 03/22/20 3:[address] Patient Name: JAMIE BELL Admission Status: ER Accout number: [id number] Admission Date: 03-19-2020 : 1950 Admission Diagnosis:PNEUMONIA, UNSPECIFIED ORGANISM Attending: BETH RICKS Current LOS: 3 Anticipated DC Date: Planned Disposition: Home with Home Health Primary Insurance: MEDICARE A & B Discharge Planning Comments: CM met with patient to complete initial dc planning assessment. CM educated patient on the CM role and verbal consent given by patient to complete assessment. Patient lives at home alone. States she used to have private duty care with [facility], but they are no longer in business and had to change companies. States she will call the new company when discharged (she is unsure of the name). At discharge patient plans to return and feels this is a safe discharge. CM discussed availability of home health, rehab services, and medical equipment. Patient states she would like to continue therapy with [facility]. She will need a resumption of care order. States her nebulizer is broken and needs a new nebulizer and also needs a new Rx. I called [facility] and they have her on services for her oxygen and will get a nebulizer and her Duo-neb. Efrain states Duo-neb will be available tomorrow, clinical and order faxed to [facility]. CM will continue to follow and will assist as needed with dc plans/needs. Lean Manufacturing Coordinator: Isabel Valdez DCPIA - Discharge Planning Initial Assessment Updated by [id number]: Isabel Courtney on 03/22/20 4:21 pm * Is the patient Alert and Oriented? Yes * PCP Dr. Valerio * Pharmacy [facility] in [place] * Preadmission Environment Home Alone * ADLs Partial Dependent * Partial ADLs (Assistance needed) Ambulation * Equipment Other Oxygen Walker Wheelchair * Other Equipment Portable oxygen * List name and contact numbers for known caregivers / representatives who currently or will assist patient after discharge: Ivis Cox [facility] - [phone] * Verbal permission to speak to the caregivers and representatives has been obtained from the patient. Yes * Community resources currently utilized Home Health Private Duty Care * Please name any agencies selected above. [facility] Does not know name of private duty care agency * Additional services required to return to the preadmission environment? Yes * Can the patient safely return to the preadmission environment? Yes * Has this patient been hospitalized within the prior 30 days at any hospital? Yes External Providers External [facility] Next Contact Date: Service Request Date: Service Type: Resolution: Reviewer: Comments: Coverage Notice Reviewer: [email or web address] Joanne Hester Notice Issued Date-Time: 03/25/2020 11:21 Notice Type: IM Discharge Notice Notice Delivered To: Patient Relationship to Patient: Self Customs And Border Protection Officer Name: Delivery Method: HAND - Hand Delivered Yoanna Days: Prior Verbal Notification: Recipient Understood Notice: Yes Recipient Signature: Yes Med Rec Note Co-signed by Attending: Coverage Notice Comment: Last DP export: 03/22/20 3:33 p Patient Name: JAMIE BELL Page [phone] at 1146 All edits/amendments must be made on the electronic document DICTATION DATE: 03/25/20 1146 ACTIVITIES OFFICER: SUSY 03/25/20 1146 RPT#: [id number] DC DATE: STATUS: ADM IN [facility] [address] [place] [address] END OF REPORT
--- NOTE | 2020-03-25 11:53 | MORECARE ---
CASE MANAGEMENT DISCHARGE SUMMARY PATIENT: JAMIE BELL UNIT: [id number] ADM DATE: 03/19/20 AGE: 69 : [birth year] SEX: F ROOM/BED: D.1193 AUTHOR: WILFRID,LINDA PHYSICIAN: REFERRING PHYSICIAN: BETH RICKS MD DATE OF SERVICE: 03/25/20 Discharge Plan Patient Name: JAMIE BELL Facility: [facility]:[place] : 1950 Planned Disposition: Home with Home Health Anticipated Discharge Date: Discharge Date: Expected LOS: Initial Reviewer: [email or web address] Initial Review Date: 03/22/2020 Generated: 03/25/20 12:53 pm Comments DCP- Discharge Planning Updated by [email or web address]: Queenie Hester on 03/25/20 10:[address] Patient Name: JAMIE BELL Encounter No: [id number] : 1950 Primary Insurance: MEDICARE A & B Anticipated DC Date: Planned Disposition: Home with Home Health External Planned Provider: : [facility] DCP follow-up note: CM called [facility] and spoke with Ilana and she stated they will be out to resume care on Thursday03/27/20 CM faxed discharge records to [facility]. CM contacted [facility] with [facility] and she stated that patients nebulizer was delivered Thursday and duo neb will be delivered 03/26/20. Patient and family in agreement with discharge plan. No changes to plan. Case management will follow and assist as needed. Queenie Hester Appended by Queenie Hester on 03/25/2020 11:51 CDT: D/C IMM signed 03/25/20 @ 1115 DCP- Discharge Planning Updated by [email or web address]: Isabel Valdez on 03/22/20 3:[address] Patient Name: JAMIE BELL Admission Status: ER Accout number: [id number] Admission Date: 03-19-2020 : 1950 Admission Diagnosis:PNEUMONIA, UNSPECIFIED ORGANISM Attending: BETH RICKS Current LOS: 3 Anticipated DC Date: Planned Disposition: Home with Home Health Primary Insurance: MEDICARE A & B Discharge Planning Comments: CM met with patient to complete initial dc planning assessment. CM educated patient on the CM role and verbal consent given by patient to complete assessment. Patient lives at home alone. States she used to have private duty care with [facility], but they are no longer in business and had to change companies. States she will call the new company when discharged (she is unsure of the name). At discharge patient plans to return and feels this is a safe discharge. CM discussed availability of home health, rehab services, and medical equipment. Patient states she would like to continue therapy with [facility]. She will need a resumption of care order. States her nebulizer is broken and needs a new nebulizer and also needs a new Rx. I called [facility] and they have her on services for her oxygen and will get a nebulizer and her Duo-neb. Efrain states Duo-neb will be available tomorrow, clinical and order faxed to [facility]. CM will continue to follow and will assist as needed with dc plans/needs. Atlassian Administrator: Isabel Valdez DCPIA - Discharge Planning Initial Assessment Updated by [email or web address]: Isabel Valdez on 03/22/20 4:21 pm * Is the patient Alert and Oriented? Yes * PCP Dr. Valerio * Pharmacy [facility] in [place] * Preadmission Environment Home Alone * ADLs Partial Dependent * Partial ADLs (Assistance needed) Ambulation * Equipment Other Oxygen Walker Wheelchair * Other Equipment Portable oxygen * List name and contact numbers for known caregivers / representatives who currently or will assist patient after discharge: Ivis Cox - DTR - [phone] * Verbal permission to speak to the caregivers and representatives has been obtained from the patient. Yes * Community resources currently utilized Home Health Private Duty Care * Please name any agencies selected above. [facility] Does not know name of private duty care agency * Additional services required to return to the preadmission environment? Yes * Can the patient safely return to the preadmission environment? Yes * Has this patient been hospitalized within the prior 30 days at any hospital? Yes Coverage Notice Reviewer: [id number] Joanne Hester Notice Issued Date-Time: 03/25/2020 11:21 Notice Type: IM Discharge Notice Notice Delivered To: Patient Relationship to Patient: Self Cheese Sprayer Name: Delivery Method: HAND - Hand Delivered Yoanna Days: Prior Verbal Notification: Recipient Understood Notice: Yes Recipient Signature: Yes Med Rec Note Co-signed by Attending: Coverage Notice Comment: Last DP export: 03/25/20 10:46 am Patient Name: JAMIE BELL Page 28591 at 1153 All edits/amendments must be made on the electronic document DICTATION DATE: 03/25/20 115 SPANISH TRANSLATOR: SUSY 03/25/20 1153 RPT#: [id number] DC DATE: STATUS: ADM IN [facility] [address] [place] [address] END OF REPORT
--- NOTE | 2020-03-25 17:27 | NUR ---
PT ESCORTED OUT TO CAR VIA WHEELCHAIR.
--- NOTE | 2020-03-25 18:43 | MORECARE ---
CASE MANAGEMENT DISCHARGE SUMMARY PATIENT: JAMIE BELL UNIT: [id number] ADM DATE: 03/19/20 AGE: 69 : 48 SEX: F ROOM/BED: D.6498 AUTHOR: WILFRID,DOC PHYSICIAN: REFERRING PHYSICIAN: BETH RICKS MD DATE OF SERVICE: 03/25/20 Discharge Plan Patient Name: JAMIE BELL Facility: [facility]:[place] : 1950 Planned Disposition: Home with Home Health Anticipated Discharge Date: Discharge Date: 03/25/2020 Expected LOS: Initial Reviewer: [email or web address] Initial Review Date: 03/22/2020 Generated: 03/25/20 7:42 pm Comments DCP- Discharge Planning Updated by [email or web address]: Queenie Hester on 03/25/20 10:[address] Patient Name: JAMIE BELL Encounter No: [id number] : 1950 Primary Insurance: MEDICARE A & B Anticipated DC Date: Planned Disposition: Home with Home Health External Planned Provider: : [facility] DCP follow-up note: CM called [facility] and spoke with Ilana and she stated they will be out to resume care on Thursday03/27/20 CM faxed discharge records to [facility]. CM contacted Sharon with [employer] and she stated that patients nebulizer was delivered Thursday and duo neb will be delivered 03/26/20. Patient and family in agreement with discharge plan. No changes to plan. Case management will follow and assist as needed. Queenie Hester Appended by Queenie Hester on 03/25/2020 11:51 CDT: D/C IMM signed 03/25/20 @ 1115 DCP- Discharge Planning Updated by [email or web address]: Isabel Valdez on 03/22/20 3:[address] Patient Name: JAMIE BELL Admission Status: ER Accout number: [id number] Admission Date: 03-19-2020 : 1950 Admission Diagnosis:PNEUMONIA, UNSPECIFIED ORGANISM Attending: BETH RICKS Current LOS: 3 Anticipated DC Date: Planned Disposition: Home with Home Health Primary Insurance: MEDICARE A & B Discharge Planning Comments: CM met with patient to complete initial dc planning assessment. CM educated patient on the CM role and verbal consent given by patient to complete assessment. Patient lives at home alone. States she used to have private duty care with [facility], but they are no longer in business and had to change companies. States she will call the new company when discharged (she is unsure of the name). At discharge patient plans to return and feels this is a safe discharge. CM discussed availability of home health, rehab services, and medical equipment. Patient states she would like to continue therapy with [facility]. She will need a resumption of care order. States her nebulizer is broken and needs a new nebulizer and also needs a new Rx. I [facility] and they have her on services for her oxygen and will get a nebulizer and her Duo-neb. Efrain states Duo-neb will be available tomorrow, clinical and order faxed to [facility]. CM will continue to follow and will assist as needed with dc plans/needs. Respiratory Therapy Manager: Isabel Valdez DCPIA - Discharge Planning Initial Assessment Updated by [email or web address]: Isabel Valdez on 03/22/20 4:21 pm * Is the patient Alert and Oriented? Yes * PCP Dr. Valerio * Pharmacy [facility] in [place] * Preadmission Environment Home Alone * ADLs Partial Dependent * Partial ADLs (Assistance needed) Ambulation * Equipment Other Oxygen Walker Wheelchair * Other Equipment Portable oxygen * List name and contact numbers for known caregivers / representatives who currently or will assist patient after discharge: Ivis Cox [facility] - [phone] * Verbal permission to speak to the caregivers and representatives has been obtained from the patient. Yes * Community resources currently utilized Home Health Private Duty Care * Please name any agencies selected above. [facility] Does not know name of private duty care agency * Additional services required to return to the preadmission environment? Yes * Can the patient safely return to the preadmission environment? Yes * Has this patient been hospitalized within the prior 30 days at any hospital? Yes Coverage Notice Reviewer: [id number] - Queenie Hester Notice Issued Date-Time: 03/25/2020 11:21 Notice Type: IM Discharge Notice Notice Delivered To: Patient Relationship to Patient: Self Stitcher Hand Name: Delivery Method: HAND - Hand Delivered Yoanna Days: Prior Verbal Notification: Recipient Understood Notice: Yes Recipient Signature: Yes Med Rec Note Co-signed by Attending: Coverage Notice Comment: Last DP export: 03/25/20 10:53 am Patient Name: JAMIE BELL Page 06009 at 1843 All edits/amendments must be made on the electronic document DICTATION DATE: 03/25/201841 CARPENTER MAINTENANCE: SUSY 03/25/201841 RPT#: [id number] DC DATE:03/25/20 STATUS: DIS IN [facility] [address] [place] [address] END OF REPORT
== END 2020-03-25 17:28 | disposition home health service (06) | DRG 193 ==
LOC: D.ER 07:15 → D.M2 09:48
PROVIDERS: Family Medicine; Family Medicine Adult Medicine; Internal Medicine Interventional Cardiology; Internal Medicine Nephrology; ADMIT Family Medicine; ATTEND Family Medicine
DX: J18.9 Pneumonia, unspecified organism (principal); I50.33 Acute on chronic diastolic (congestive) heart failure; J96.21 Acute and chronic respiratory failure with hypoxia; N18.6 End stage renal disease; J44.0 Chronic obstructive pulmonary disease with (acute) lower respiratory infection; Z68.41 Body mass index [BMI] 40.0-44.9, adult; N39.0 Urinary tract infection, site not specified; I13.2 Hypertensive heart and chronic kidney disease with heart failure and with stage 5 chronic kidney disease, or end stage renal disease; E78.5 Hyperlipidemia, unspecified; K21.9 Gastro-esophageal reflux disease without esophagitis; E66.9 Obesity, unspecified; I25.10 Atherosclerotic heart disease of native coronary artery without angina pectoris; E03.9 Hypothyroidism, unspecified; D63.1 Anemia in chronic kidney disease; Z86.73 Personal history of transient ischemic attack (TIA), and cerebral infarction without residual deficits

== ENCOUNTER 2020-07-12 17:59 | Inpatient (IN) | payer MEDICARE ==
[~2020-07-12] VITALS: Ht 160 cm; Wt 104.1 kg
--- NOTE | ~2020-07-12 | EC ---
PATIENT:JAMIE BELL DATE OF SERVICE: 07/12/20 SEX: F MEDICAL RECORD: [id number] DATE OF : [birth year] LOCATION:D.M2 D.211 AGE OF PATIENT: 69 ADMISSION DATE: 07/12/20 REFERRING PHYSICIAN: INTERPRETING PHYSICIAN: DAGOBERTO MORENO MD ECHOCARDIOGRAM REPORT ECHO CHARGES 4 ECHO COMPLETE Date: 07/13/20 CLINICAL DIAGNOSIS: HTN ECHOCARDIOGRAPHIC MEASUREMENTS (adult normal given) AC root (d.<3.7cm) 3.0 cm LV Septum d (<1.2 cm> 0.9 cm Valve Excursion 1.4 cm LV Septum (systole) 1.3 cm Left Atria (s.<4.0cm> 4.2 cm LVPW d(<1.2cm) 1.2 cm RV (d.<2.3cm) 3.8 cm LVPW (sytole) 1.4 cm LV diastole(<5.6CM) 5.7 cm MV E-F(>70mm/sec) cm LV systole 4.5 cm LVOT Diameter 1.7 cm MV exc.(>10mm) cm Est.ejection fraction (50-75%) % DOPPLER: LVIT cm/sec A 99 cm/sec E 126 cm/sec LA cm/sec RVSP 16.6 mmHg LVOT 91 cm/sec AOP1/2T m/s Asc. Ao 154 cm/sec RVOT 75 cm/sec RA cm/sec PA 104 cm/sec AV Gradient Peak 9.5 mmHg AV Mean 4.9 mmHg AV Area 1.6 cm MV Gradient Peak 7.8 mmHg MV Mean 2.9 mmHg MV Area cm COMMENTS: Division Head: Lorelei MARTELL Donor Technician: 4 Dr. Moreno TAPE# PACS Pericardial Effusion N DATE OF SERVICE: PROCEDURE: Transthoracic echocardiogram. FINDINGS: 1. The left ventricle is mildly enlarged, but the ejection fraction is preserved at 55%. There is no evidence of regional wall motion abnormalities. 2. The left atrium is normal size, shape, structure, and function. 3. Aortic valve shows normal structure and function. 4. Mitral valve has mild mitral regurgitation. ECHOCARDIOGRAM REPORT [id number] JAMIE BELL 5. Tricuspid valve has no significant tricuspid regurgitation. There is normal structure and function. 6. The right atrium is mildly enlarged. 7. Right atrium is normal. 8. Pulmonic valve is normal. 9. Pericardium has no effusion. TRANSINT:[id number] Voice Confirmation ID: [id number] DOCUMENT ID: [id number] DAGOBERTO MORENO MD CC: [id number] DICTATION DATE: 07/14/20 1033 DELI CLERK: 07/14/20 1528 ADM IN [facility] [address] [place] [address]
[~2020-07-12 17:59] MED LIST changes: +Bumex PO; +MUCINEX DM ER1 EAC1 PO; +NEPHRO-VITE RX1 TAB PO; +OMNICEF300 MG PO; +TESSALON PERLE100 MG PO
[2020-07-12] MEDS ORDERED: COLACE100 MG PO (18:12)
[2020-07-12] MEDS ORDERED: MYRBETRIQ50 MG PO (18:12)
--- NOTE | 2020-07-12 18:35 | NUR ---
RT AT BS FOR ABG'S PER RESULTS, PT PLACED ON O2 2L PNC
--- NOTE | 2020-07-12 18:40 | NUR ---
IV SITED WITH BLOOD DRAW INCLUDING BCX2
--- NOTE | 2020-07-12 18:42 | NUR ---
COVID SWAB OBTAINED AND SENT TO LAB
[2020-07-12 18:50] LABS: BASOPHILS 0.4 % (0-2); EOSINOPHILS 3.5 % (0-7); HEMATOCRIT 30.9 % (36.0-48.0); HEMOGLOBIN 9.5 g/dL (12-16); IMMATURE GRANULOCYTES 0.3 % (0-5); LYMPHOCYTES 16.4 % (15-50); MCHC 30.7 g/dL (31.0-37.0); MCV 94.2 fL (80.0-100.0); MEAN PLATELET VOLUME 9.3 fL (7.4-10.4); MONOCYTES 10.7 % (2-11); NEUTROPHILS 68.7 % (40-80); PLATELET COUNT 227 10x3/uL (130-400); RBC 3.28 10x6/uL (4.00-5.40); RDW 14.5 % (11.5-14.5); WBC 7.8 10x3/uL (4.8-10.8)
[2020-07-12 19:05] LABS: CALC OSMOLALITY 290 mosm/kg (275-300); CARBON DIOXIDE 20.3 mmol/L (21.0-32.0); CHLORIDE - SERUM 107 mmol/L (98-107); CREATININE - SERUM 5.7 mg/dL (0.6-1.3); GLUCOSE 85 mg/dL (74-106); SODIUM 138 mmol/L (136-145); UREA NITROGEN 58 mg/dL (7-18); eGFR NON AFRICAN AMERICAN 8 mL/min (90-120)
[2020-07-12 19:07] LABS: APTT 34.2 SECONDS (22.8-39.4); INR 0.98 (0.85-1.17); PROTIME 12.9 SECONDS (11.6-15.0)
[2020-07-12 19:22] LABS: ALBUMIN 2.9 g/dL (3.4-5.0); ALKALINE PHOSPHATASE 72 U/L (30-120); ALT (SGPT) 10 U/L (10-68); BILIRUBIN - TOTAL 0.47 mg/dL (0.2-1.3); CREATINE KINASE 44 UL (21-215); PRO BNP 16737 pg/mL (0-125); PROTEIN - SERUM 7.1 g/dL (6.4-8.2)
[2020-07-12 19:25] LABS: TROPONIN-I < 0.017 ng/mL (0.000-0.060)
--- NOTE | 2020-07-12 19:32 | NUR ---
PT GIVEN SANDWICH AND WATER, DENIES ANY FURTHER NEEDS, CALL LIGHT IN REACH, WILL CONTINUE TO MONITOR.
[2020-07-12 20:03] LABS: BILIRUBIN NEGATIVE (NEGATIVE); KETONE NEGATIVE (NEGATIVE); NITRITE NEGATIVE (NEGATIVE); UROBILINOGEN NORMAL (NORMAL); WHITE CELLS - URINE >50 /hpf (NEGATIVE)
[2020-07-12 20:04] LABS: BACTERIA MODERATE /hpf (NEGATIVE); EPITHELIAL CELLS 0-5 /hpf (0-5)
--- NOTE | 2020-07-12 20:19 | NUR ---
PT GIVEN BLANKET, DENIES ANY FURTHER NEEDS, CALL LIGHT IN REACH. WILL CONTINUE TO MONITOR.
--- NOTE | 2020-07-12 21:08 | NUR ---
ATTEMPTED TO CALL REPORT, NURSE UNAVAILABLE AT THIS TIME, WILL CALL BACK.
[2020-07-13] VITALS (7 sets, daily range): BP systolic 124–183; BP diastolic 53–77; BMI 42.8; BMI 42.7
[2020-07-13 02:00] LABS: BASOPHILS 0.3 % (0-2); EOSINOPHILS 0.3 % (0-7); HEMATOCRIT 33.6 % (36.0-48.0); HEMOGLOBIN 10.2 g/dL (12-16); IMMATURE GRANULOCYTES 0.1 % (0-5); LYMPHOCYTES 8.1 % (15-50); MCHC 30.4 g/dL (31.0-37.0); MCV 95.5 fL (80.0-100.0); MEAN PLATELET VOLUME 9.3 fL (7.4-10.4); MONOCYTES 1.6 % (2-11); NEUTROPHILS 89.6 % (40-80); PLATELET COUNT 217 10x3/uL (130-400); RBC 3.52 10x6/uL (4.00-5.40); RDW 14.7 % (11.5-14.5); WBC 6.9 10x3/uL (4.8-10.8)
[2020-07-13 02:23] LABS: CALCIUM 9.4 mg/dL (8.5-10.1); CARBON DIOXIDE 17.1 mmol/L (21.0-32.0); CHLORIDE - SERUM 106 mmol/L (98-107); CKMB 1.1 U/L (0.0-3.6); CREATINE KINASE 48 UL (21-215); CREATININE - SERUM 5.4 mg/dL (0.6-1.3); PHOSPHOROUS 5.9 mg/dL (2.5-4.9); POTASSIUM - SERUM 5.4 mmol/L (3.5-5.1); SODIUM 137 mmol/L (136-145); UREA NITROGEN 58 mg/dL (7-18); eGFR NON AFRICAN AMERICAN 8 mL/min (90-120)
[2020-07-13 02:32] LABS: CALC OSMOLALITY 293 mosm/kg (275-300); GLUCOSE 171 mg/dL (74-106); TROPONIN-I < 0.017 ng/mL (0.000-0.060)
[2020-07-13 08:29] LABS: CKMB 1.1 U/L (0.0-3.6); CREATINE KINASE 46 UL (21-215); TROPONIN-I < 0.017 ng/mL (0.000-0.060)
--- NOTE | 2020-07-13 11:57 | NUR ---
16FR LEON CATHETER PLACED X1 ATTEMPT. INFLATED BULB WITH 10ML OF NS AND STAT JEREMY IN PLACE. IMMEDIATE RETURN OF 100ML OF PALE YELLOW URINE. PT STATED THAT SHE WOULD REMOVE STAT JEREMY BECAUSE IT WOULD BOTHER HER. INSTRUCTED PT ON IMPORTANCE OF KEEPING STAT JEREMY AND LEON IN PLACE, PT CONTINUED TO ARGUE STATING IT WOULD HURT HURT AND THAT SHE WOULD REMOVE IT HERSELF. NURSE NOTIFIED. WILL CTM.
[2020-07-13 14:20] LABS: CKMB 1.3 U/L (0.0-3.6); CREATINE KINASE 52 UL (21-215); TROPONIN-I < 0.017 ng/mL (0.000-0.060)
--- NOTE | 2020-07-13 14:59 | NUR ---
PT REPORTS PAIN OF 9/10 IN HER BACK, SEE EMAR.
--- NOTE | 2020-07-13 19:43 | NUR ---
RECIEVED UP IN BED WITH EYES OPENN AND TV ON. ALERT AND ORIENTED. BEDFAST AT THIS TIME. O2@ 4 LITERS PER N/C IN PLACE. F/C IN PLACE WITH CLEAR YELLOW URINE DRAINING TO BEDSIDE DRAINAGE BAG. DENIES ANY NEEDS AT THIS TIME.
[2020-07-14 04:00] VITALS: BP 137/58
[2020-07-14 05:48] LABS: BASOPHILS 0 % (0-2); EOSINOPHILS 0 % (0-7); HEMATOCRIT 32.9 % (36.0-48.0); HEMOGLOBIN 10.1 g/dL (12-16); IMMATURE GRANULOCYTES 0.3 % (0-5); LYMPHOCYTES 7.9 % (15-50); MCH 28.6 pg (26.0-34.0); MCHC 30.7 g/dL (31.0-37.0); MEAN PLATELET VOLUME 9.6 fL (7.4-10.4); MONOCYTES 6.5 % (2-11); NEUTROPHILS 85.3 % (40-80); PLATELET COUNT 238 10x3/uL (130-400); RBC 3.53 10x6/uL (4.00-5.40); RDW 14.5 % (11.5-14.5)
[2020-07-14 06:10] LABS: MCV 93.2 fL (80.0-100.0)
[2020-07-14 06:50] LABS: CALCIUM 9.3 mg/dL (8.5-10.1); CARBON DIOXIDE 20.5 mmol/L (21.0-32.0); CREATININE - SERUM 5.4 mg/dL (0.6-1.3); PHOSPHOROUS 6.1 mg/dL (2.5-4.9); POTASSIUM - SERUM 5.5 mmol/L (3.5-5.1)
[2020-07-14 08:00] VITALS: BP 169/82
[2020-07-14 12:00] VITALS: BP 165/73
[2020-07-14 16:00] VITALS: BP 150/80
--- NOTE | 2020-07-14 19:29 | NUR ---
RECIEVED UP IN BED WITH EYES OPEN AND TV ON. ALERT AND ORIETNED X4. REMAINS BEDFAST AT THIS TIME. REQUESTING MORPHINE AT HS. O2@ 4 LITERS PER N/C IN PLACE. F/C INTACT WITH CLEAR YELLOW URINE DRAINING TO BEDSIDE DRAINAGE BAG. BRUISES TO BILATERAL ARMS. DENIES ANY OTHER NEEDS AT THIS TIME.
[2020-07-14 20:00] VITALS: BP 149/72
[2020-07-15 04:00] VITALS: BP 159/77
[2020-07-15 05:44] LABS: BASOPHILS 0.4 % (0-2); EOSINOPHILS 1.6 % (0-7); HEMATOCRIT 32.8 % (36.0-48.0); HEMOGLOBIN 9.9 g/dL (12-16); IMMATURE GRANULOCYTES 0.2 % (0-5); LYMPHOCYTES 20.6 % (15-50); MCH 28.4 pg (26.0-34.0); MCHC 30.2 g/dL (31.0-37.0); MEAN PLATELET VOLUME 9.4 fL (7.4-10.4); NEUTROPHILS 66.2 % (40-80); PLATELET COUNT 244 10x3/uL (130-400); RBC 3.49 10x6/uL (4.00-5.40); RDW 14.6 % (11.5-14.5); WBC 8.9 10x3/uL (4.8-10.8)
[2020-07-15 06:01] LABS: ANION GAP 15.9 mmol/L (8-16); CALCIUM 8.9 mg/dL (8.5-10.1); CREATININE - SERUM 5.3 mg/dL (0.6-1.3); MAGNESIUM - SERUM 1.8 mg/dL (1.8-2.4); PHOSPHOROUS 7.2 mg/dL (2.5-4.9); POTASSIUM - SERUM 4.9 mmol/L (3.5-5.1)
--- NOTE | 2020-07-15 07:15 | NUR ---
RECEIVE SHIFT REPORT. RESTING IN BED WITH EYES CLOSED. NO SIGNS OF DISTRESS. WILL CONTINUE PLAN OF CARE AND SAFETY PRECAUTIONS.
[2020-07-15 08:00] VITALS: BP 155/82
--- NOTE | 2020-07-15 15:39 | NUR ---
LEFT FOREARM IV D/C DUE TO LEAKING. RESITED NEW IV IN RIGHT WRIST. NO FURTHER NEEDS AT THIS TIME. HOB ELEVATED 30 DEGREES.
[2020-07-15 16:00] VITALS: BP 148/69
[2020-07-15 20:00] VITALS: BP 158/67
--- NOTE | 2020-07-15 22:34 | NUR ---
RECIEVED UP IN BED WITH HOB ELEVATED. ALERT AND ORIENTED X4. O2@ 3 LITERS PER HF CANNULA. IV TO RT WRIST SL. TELEMETRY IN PLACE. F/C PATENT AND DRAINING CLEAR YELLOW URINE TO BEDSIDE DRAINAGE SYSTEM. DENIES ANY NEEDS AT THIS TIME. DOES REQUEST MORPHINE WITH PM MEDICATION.
[2020-07-16] VITALS: BP 171/64
[2020-07-16 04:00] VITALS: BP 169/54
[2020-07-16 06:24] LABS: BASOPHILS 0.5 % (0-2); EOSINOPHILS 4.9 % (0-7); HEMATOCRIT 33.3 % (36.0-48.0); IMMATURE GRANULOCYTES 0.3 % (0-5); LYMPHOCYTES 22.1 % (15-50); MCH 28.4 pg (26.0-34.0); MCV 94.6 fL (80.0-100.0); MEAN PLATELET VOLUME 9.5 fL (7.4-10.4); NEUTROPHILS 59.2 % (40-80); PLATELET COUNT 262 10x3/uL (130-400); RBC 3.52 10x6/uL (4.00-5.40); RDW 14.8 % (11.5-14.5); WBC 7.6 10x3/uL (4.8-10.8)
[2020-07-16 07:26] LABS: ANION GAP 15.4 mmol/L (8-16); CALCIUM 8.9 mg/dL (8.5-10.1); CARBON DIOXIDE 20.7 mmol/L (21.0-32.0); CREATININE - SERUM 5.6 mg/dL (0.6-1.3); MAGNESIUM - SERUM 1.7 mg/dL (1.8-2.4); PHOSPHOROUS 8.3 mg/dL (2.5-4.9); POTASSIUM - SERUM 5.1 mmol/L (3.5-5.1)
[2020-07-16 09:00] VITALS: BP 104/68
--- NOTE | 2020-07-16 10:50 | NUR ---
CONSENTS WERE SIGNED THIS AM AND PREOP CALLED FOR MEDS TO BE GIVEN AT 1050
--- NOTE | 2020-07-16 11:12 | NUR ---
TO SURGERY VIA BED WITH PORTABLE OXYGEN AND FLUIDS.
--- NOTE | 2020-07-16 12:22 | NUR ---
Nutrition Follow-up: Overall fair PO intake. Plans for hemosplit placement today. Diet: NPO PO intake: 53% avg x 9 meals Wt: 234# (07/16) Last BM: 07/10 per chart Labs noted: PO4 8.3, Mg 1.7 Meds noted: Pepcid, Colace, electrolyte protocol -Rec resume diet following procedure as medically feasible. -Monitor wt; noted daily wts ordered. -RD following.
[2020-07-16 13:32] VITALS: BP 143/68
--- NOTE | 2020-07-16 13:32 | NUR ---
RETURNED FROM PROCEDURE, LUNCH TRAY SET UP, VITAL SIGNS TAKEN AND WAITING FOR DIALYSIS TO CALL.
[2020-07-16 17:02] VITALS: BP 145/70
[2020-07-16 20:00] VITALS: BP 129/60
[2020-07-17] VITALS: BP 152/60
[2020-07-17 04:00] VITALS: BP 168/60
[2020-07-17 05:51] LABS: BASOPHILS 0.3 % (0-2); EOSINOPHILS 5.2 % (0-7); HEMATOCRIT 33.5 % (36.0-48.0); HEMOGLOBIN 10.1 g/dL (12-16); IMMATURE GRANULOCYTES 0.1 % (0-5); MCH 28.4 pg (26.0-34.0); MCHC 30.1 g/dL (31.0-37.0); MCV 94.1 fL (80.0-100.0); MEAN PLATELET VOLUME 9.5 fL (7.4-10.4); MONOCYTES 12.1 % (2-11); NEUTROPHILS 59.3 % (40-80); PLATELET COUNT 234 10x3/uL (130-400); RBC 3.56 10x6/uL (4.00-5.40); RDW 14.3 % (11.5-14.5); WBC 7.3 10x3/uL (4.8-10.8)
[2020-07-17 06:06] LABS: CALCIUM 8.9 mg/dL (8.5-10.1); CREATININE - SERUM 4.8 mg/dL (0.6-1.3); MAGNESIUM - SERUM 1.7 mg/dL (1.8-2.4); PHOSPHOROUS 7.6 mg/dL (2.5-4.9)
--- NOTE | 2020-07-17 08:11 | NUR ---
TO SURGERY VIA BED, ATEMPTED TO PREOP AND IV WAS LEAKING, ANESTHESIOLOGIST SAID HE WOULD RESTART AND PREOP DOWNSTAIRS.
[2020-07-17 09:06] VITALS: Ht 160 cm; Wt 104.1 kg
--- NOTE | 2020-07-17 09:06 | OP ---
PATIENT NAME: JAMIE BELL MEDICAL RECORD: [id number] :[birth year] LOCATION:D.M2 D.2110 ADMISSION DATE:07/12/20 SURGEON: ABISAI FELIX MD DATE OF OPERATION: 07/16/2020 REFERRING PHYSICIAN: Dr. Aguilar PREOPERATIVE DIAGNOSIS: ASRD. OPERATION PERFORMED: Implantation of right internal jugular HemoSplit tunneled dialysis catheter with real time ultrasound and fluoroscopic guidance. SURGEON: Abisai Felix MD PREOPERATIVE NOTE: This 69-year-old morbidly obese white female patient with a host of medical problems is needing to begin hemodialysis with a catheter. Dr. Aguilar asked me to place catheter today. I plan to do that and then most likely if she tolerates this well we will bring her back to the operating room tomorrow to try to construct fistula. Under general anesthesia with LMA per CHAIR AND COUCH MAKER, the patient was placed on the operating table in supine position with the neck as hyperextended as reasonably possible. She is prepped and draped in sterile manner. The Duplex ultrasound was then used to locate the right internal jugular vein. This vessel was sonographically normal and fully compressible. A small incision was made over it at the base of the neck and through that with real time ultrasound guidance, a micropuncture needle and guidewire was inserted. Images was retained for documentation. Then, under fluoroscopy, a catheter guidewire exchange was performed and then serial dilators were passed and lastly a dilator peel-away sheath. A 19-Uzbek HemoSplit catheter was then brought from a small incision beneath the clavicle through a subcutaneous tunnel to the cervical incision and then inserted through the peel-away sheath. It was positioned appropriately in the right atrium. Both lumens were accessed and aspirated, free return of blood confirmed. They were then flushed with saline and then Hep-Lock solution, clamped, and capped. The cervical incision was closed with interrupted inverted 3-0 Vicryl and Dermabond glue and dressed with Maxorb Ag, Tegaderm, and Cavilon skin prep. The insertion site incision was snugged up with 1 subcuticular inverted 3-0 Vicryl suture and a 2-0 Prolene suture was placed through the suture wings to anchor the catheter to the surrounding skin. Sterile dressing was applied including a chlorhexidine Biopatch and the patient awakened and taken to the recovery room. Blood loss during the operation was trivial and un-replaced. Sponges, instruments, and needles were accounted for. No drain was used. No surgical specimen submitted for histopathology. TRANSINT:[id number] Voice Confirmation ID: [id number] DOCUMENT ID: [id number] ABISAI FELIX MD at 0906 CC: RONY AGUILAR DO [id number] DICTATION DATE: 07/16/20 1318 ELIGIBILITY MANAGER: 07/16/20 2321 ADM IN [facility] [id number] [place] [address]
[2020-07-17 09:36] VITALS: BP 176/65
--- NOTE | 2020-07-17 10:55 | NUR ---
LEON NOTED UPON INITIAL ASSESSMENT. URINE IS CLOUDY YELLOW.
--- NOTE | 2020-07-17 11:41 | NUR ---
RETURNED TO FLOOR VIA BED FROM SURGERY, STABLE AND AWAKE, VITALS. 160/60, 104.20, 99% ON 2 LITERS. RIGHT FISTULA WITH POSITIVE THRILL AND BRUIT. COMPLAINING OF NAUSIA. WILL TREAT.
[2020-07-17 13:11] LABS: HEPATITIS C ANTIBODY <0.1 S/CO RAT (0.0-0.9)
[2020-07-17 13:39] VITALS: BP 164/82
--- NOTE | 2020-07-17 19:30 | NUR ---
REPORT RECEIVED, WILL CONT POC. PT A&O, UP IN BED WATCHING TV. NO S/S DISTRESS OBSERVED. RR EVEN AND UNLABORED ON 3L OF O2 VIA NC. PT REPORTS PAIN AND NAUSEA, GAVE MORPHINE AND ZOFRAN. PT DENIES NEEDS AT THIS TIME. CALL LIGHT IN REACH. BED LOCKED AND LOWERED. REDNESS AND SWELLING NOTED AT FISTULA PLACEMENT, APPLIED ICE. ASSESSMENT COMPLETED AT THIS TIME. WILL CONT TO MONITOR.
[2020-07-17 20:00] VITALS: BP 153/49
[2020-07-18 04:00] VITALS: BP 193/57
[2020-07-18 06:57] LABS: BASOPHILS 0.3 % (0-2); EOSINOPHILS 5.3 % (0-7); HEMATOCRIT 31.5 % (36.0-48.0); HEMOGLOBIN 9.4 g/dL (12-16); IMMATURE GRANULOCYTES 0.3 % (0-5); LYMPHOCYTES 12.6 % (15-50); MCH 28.3 pg (26.0-34.0); MCHC 29.8 g/dL (31.0-37.0); MCV 94.9 fL (80.0-100.0); MEAN PLATELET VOLUME 9.5 fL (7.4-10.4); MONOCYTES 12.3 % (2-11); NEUTROPHILS 69.2 % (40-80); PLATELET COUNT 219 10x3/uL (130-400); RBC 3.32 10x6/uL (4.00-5.40); RDW 14.4 % (11.5-14.5)
[2020-07-18 07:15] LABS: WBC 9.5 10x3/uL (4.8-10.8)
[2020-07-18 07:49] LABS: CALCIUM 9.1 mg/dL (8.5-10.1); CREATININE - SERUM 5.1 mg/dL (0.6-1.3); MAGNESIUM - SERUM 1.9 mg/dL (1.8-2.4); PHOSPHOROUS 8.4 mg/dL (2.5-4.9)
[2020-07-18 09:06] VITALS: BP 171/61
[2020-07-18 14:53] VITALS: BP 149/57
--- NOTE | 2020-07-18 14:57 | NUR ---
C/O PAIN TO RIGHT SHOULDER. RATES PAIN 10/10. 2 MG MORPHINE GIVEN MIXED WITH NS 7 CC SLOW IVP.
--- NOTE | 2020-07-18 16:04 | MORECARE ---
CASE MANAGEMENT DISCHARGE SUMMARY PATIENT: JAMIE BELL UNIT: [id number] ADM DATE: 07/12/20 AGE: 69 : [birth year] SEX: F ROOM/BED: D.[facility] AUTHOR: LINDA YUEN PHYSICIAN: REFERRING PHYSICIAN: BETH RICKS MD DATE OF SERVICE: 07/18/20 Discharge Plan Patient Name: JAMIE BELL Facility: [facility]:[place] : 1950 Planned Disposition: Home Anticipated Discharge Date: Discharge Date: Expected LOS: Initial Reviewer: [email or web address] Initial Review Date: 07/18/2020 Generated: 07/18/20 5:03 pm Patient Name: JAMIE BELL Page 84616 at 1604 All edits/amendments must be made on the electronic document DICTATION DATE: 07/18/20 160 PRINTING PRESS MACHINIST: SUSY 07/18/20 1604 RPT#: [id number] DC DATE: STATUS: ADM IN [facility] [address] [place] [address] END OF REPORT
--- NOTE | 2020-07-18 16:14 | MORECARE ---
CASE MANAGEMENT DISCHARGE SUMMARY PATIENT: JAMIE BELL UNIT: [id number] ADM DATE: 07/12/20 AGE: 69 : [birth year] SEX: F ROOM/BED: D[place] [place] AUTHOR: LINDA YUEN PHYSICIAN: REFERRING PHYSICIAN: BETH RICKS MD DATE OF SERVICE: 07/18/20 Discharge Plan Patient Name: JAMIE BELL Facility: [facility]:[place] : 1950 Planned Disposition: Home Anticipated Discharge Date: Discharge Date: Expected LOS: Initial Reviewer: [email or web address] Initial Review Date: 07/18/2020 Generated: 07/18/20 5:13 pm DCPIA - Discharge Planning Initial Assessment Updated by [email or web address]: Isabel Valdez on 07/18/20 4:07 pm * Is the patient Alert and Oriented? Yes * How many steps to enter\exit or inside your home? 0/0 * PCP Dr. Valerio * Pharmacy [facility] * Preadmission Environment Home Alone * ADLs Partial Dependent * Partial ADLs (Assistance needed) Ambulation Bathing Dressing Medication Management * Equipment Nebulizer Other Power Chair or Electric Scooter Walker Wheelchair * Other Equipment Incontinence pads Electric WC * List name and contact numbers for known caregivers / representatives who currently or will assist patient after discharge: Ivis Cox - [phone] ronald Cox (POA and grand son) [phone] * Verbal permission to speak to the caregivers and representatives has been obtained from the patient. Yes * Community resources currently utilized Private Duty Care * Please name any agencies selected above. [facility] * Additional services required to return to the preadmission environment? Yes * Can the patient safely return to the preadmission environment? Yes * Has this patient been hospitalized within the prior 30 days at any hospital? No Last DP export: 07/18/20 3:04 p Patient Name: JAMIE BELL Page 65918 at 1614 All edits/amendments must be made on the electronic document DICTATION DATE: 07/18/20 161 RUG DYER: SUSY 07/18/20 161 RPT#: [id number] DC DATE: STATUS: ADM IN [facility] [address] [place] [address] END OF REPORT
--- NOTE | 2020-07-18 16:21 | MORECARE ---
CASE MANAGEMENT DISCHARGE SUMMARY PATIENT: JAMIE BELL UNIT: [id number] ADM DATE: 07/12/20 AGE: 69 : 48 SEX: F ROOM/BED: D.6540 AUTHOR: LINDA YUEN PHYSICIAN: REFERRING PHYSICIAN: BETH RICKS MD DATE OF SERVICE: 07/18/20 Discharge Plan Patient Name: JAMIE BELL Facility: [facility]:[place] : 1950 Planned Disposition: Home Anticipated Discharge Date: Discharge Date: Expected LOS: Initial Reviewer: [id number] Initial Review Date: 07/18/2020 Generated: 07/18/20 5:21 pm Comments DCP- Discharge Planning Updated by [id number]: Isabel Valdez on 07/18/20 3:[address] Patient Name: JAMIE BELL Admission Status: ER Accout number: [id number] Admission Date: 07-12-2020 : 1950 Admission Diagnosis:ACUTE RESPIRATORY FAILURE WITH HYPOXIA Attending: BETH RICKS Current LOS: 6 Anticipated DC Date: Planned Disposition: Home Primary Insurance: MEDICARE A & B Discharge Planning Comments: CM met with patient to complete initial dc planning assessment. CM educated patient on the CM role and verbal consent given by patient to complete assessment. Patient lives at home alone. At discharge patient plans to return and feels this is a safe discharge. CM discussed availability of home health, rehab services, and medical equipment. Patient refuses rehab or home health at this time States she has a wound care nurse from [facility] that comes in daily and assists with bathing, dressing and house hold chores. States she no longer drives, but her family gets her what she needs. She uses [facility] transportation for physician visits. States she will have a family member take her home, but she will need the [facility] bus for her dialysis transportation. States she is not getting enough pads for her incontinence at home. She is unsure of the company she uses. I called [employer] and they state that there is a limit of $130 dollars a month they can bill Medicaid for supplies. I informed patient and she states she is getting the maximum amount. Patient states she does not have portable oxygen, I called Efrain with [employer] and patient is on services with them and she will need a room air oxygen level. I will order for the morning. CM will continue to follow and assist with discharge planning/needs. Legal Word Processor: Isabel Valdez DCPIA - Discharge Planning Initial Assessment Updated by [id number]: Isabel Valdez on 07/18/20 4:07 pm * Is the patient Alert and Oriented? Yes * How many steps to enter\exit or inside your home? 0/0 * PCP Dr. Valerio * Pharmacy [facility] * Preadmission Environment Home Alone * ADLs Partial Dependent * Partial ADLs (Assistance needed) Ambulation Bathing Dressing Medication Management * Equipment Nebulizer Other Power Chair or Electric Scooter Walker Wheelchair * Other Equipment Incontinence pads Electric WC * List name and contact numbers for known caregivers / representatives who currently or will assist patient after discharge: Ivis Cox - [phone] ronald Cox (POA and grand son) [phone] * Verbal permission to speak to the caregivers and representatives has been obtained from the patient. Yes * Community resources currently utilized Private Duty Care * Please name any agencies selected above. [facility] * Additional services required to return to the preadmission environment? Yes * Can the patient safely return to the preadmission environment? Yes * Has this patient been hospitalized within the prior 30 days at any hospital? No Coverage Notice Reviewer: [id number] - Isabel Valdez Notice Issued Date-Time: 07/18/2020 16:20 Notice Type: IM Discharge Notice Notice Delivered To: Patient Relationship to Patient: Self Professor Of Latin American Studies Name: Delivery Method: HAND - Hand Delivered Yoanna Days: Prior Verbal Notification: Recipient Understood Notice: Yes Recipient Signature: Yes Med Rec Note Co-signed by Attending: Coverage Notice Comment: Last DP export: 07/18/20 3:14 p Patient Name: JAMIE BELL Page [id number] at 1621 All edits/amendments must be made on the electronic document DICTATION DATE: 07/18/201620 SOCIAL MEDIA SR STRATEGY MANAGER: SUSY 07/18/201620 RPT#: [id number] DC DATE: STATUS: ADM IN [facility] [address] [place] [address] END OF REPORT
--- NOTE | 2020-07-18 18:21 | NUR ---
CALLED PHARMACY FOR AZITHROMAX AND THEY STATED THAT THEY WOULD HAVE TO BRING IT UP
--- NOTE | 2020-07-18 18:23 | NUR ---
DAVID REFUSED TO LET THIS RN TAKE OUT HER LEON STATING THAT SHE WOULD LIKE TO KEEP IT IN FOR TONIGHT AND START BLADDER TRAINING TOMMOROW
[2020-07-18 19:47] VITALS: BP 120/51
--- NOTE | 2020-07-18 20:09 | NUR ---
REPORT RECEIVED, WILL CONT POC. PT A&O, UP IN BED WATCHING TV. PT REPORTS THAT PAIN FROM [facility] IS BETTER TONIGHT. REQUESTED TYLENOL FOR HEADACHE, ADMINISTERED. NO S/S OF DISTRESS. RR EVEN AND UNLABORED ON 3L VIA NC. PT REFUSED LEON D/C PER MD ORDERS DURING DAY SHIFT, PT SAID SHE WOULD HAVE IT REMOVED IN THE MORNING BEFORE MD COMES TO ROUND. PT DENIES ANY NEEDS AT THIS TIME. ASSESSMENT COMPLETED AT THIS TIME. WILL CONT TO MONITOR.
[2020-07-19] VITALS: BP 145/48
[2020-07-19 04:00] VITALS: BP 143/51
[2020-07-19 05:13] LABS: BASOPHILS 0.2 % (0-2); EOSINOPHILS 4.9 % (0-7); HEMATOCRIT 30.1 % (36.0-48.0); HEMOGLOBIN 9.1 g/dL (12-16); IMMATURE GRANULOCYTES 0.3 % (0-5); LYMPHOCYTES 16.9 % (15-50); MCH 28.5 pg (26.0-34.0); MCHC 30.2 g/dL (31.0-37.0); MCV 94.4 fL (80.0-100.0); MEAN PLATELET VOLUME 9.7 fL (7.4-10.4); MONOCYTES 14.4 % (2-11); NEUTROPHILS 63.3 % (40-80); PLATELET COUNT 220 10x3/uL (130-400); RBC 3.19 10x6/uL (4.00-5.40); WBC 8.8 10x3/uL (4.8-10.8)
[2020-07-19 05:34] LABS: CREATININE - SERUM 4.2 mg/dL (0.6-1.3)
[2020-07-19 05:47] LABS: ANION GAP 10.6 mmol/L (8-16); CARBON DIOXIDE 30.2 mmol/L (21.0-32.0); PHOSPHOROUS 6.2 mg/dL (2.5-4.9); POTASSIUM - SERUM 3.8 mmol/L (3.5-5.1)
[2020-07-19 08:18] VITALS: BP 140/56
[2020-07-19 11:21] VITALS: BP 138/87
--- NOTE | 2020-07-19 11:23 | NUR ---
Nutrition Follow-up: Pt reports good appetite. Ate ~75% of breakfast this AM. C/o constipation and occasional nausea. Diet: Renal ADA Wt: 229# (07/17) Labs noted: K+ 3.8, Glu 118, PO4 6.2 Meds noted: Pepcid, Colace, Zofran, electrolyte protocol -Encourage PO intake and honor food preferences within diet restrictions. -MD may consider binder 2/2 hyperphosphatemia. -Need new wt; noted daily wts ordered. -RD following.
--- NOTE | 2020-07-19 11:55 | NUR ---
DIALYSIS COORDINATOR: PT HAS BEEN ACCEPTED AT [facility] ON A MON/THU/THU SCHEDULE. ARRIVAL: 10:30 ON-TIME: 11:00. PT CAN START IN-CENTER ON June. ARIANNA HURT
--- NOTE | 2020-07-19 14:03 | MORECARE ---
CASE MANAGEMENT DISCHARGE SUMMARY PATIENT: JAMIE BELL UNIT: [id number] ADM DATE: 07/12/20 AGE: 69 : 48 SEX: F ROOM/BED: D.4641 AUTHOR: LINDA YUEN PHYSICIAN: REFERRING PHYSICIAN: BETH RICKS MD DATE OF SERVICE: 07/19/20 Discharge Plan Patient Name: JAMIE BELL Facility: [facility]:[place] : 1950 Planned Disposition: Home Anticipated Discharge Date: Discharge Date: Expected LOS: Initial Reviewer: [email or web address] Initial Review Date: 07/18/2020 Generated: 07/19/20 3:03 pm Comments DCP- Discharge Planning Updated by [email or web address]: Isabel Valdez on 07/19/20 12:[address] Received a welcome letter and a chair time for tomorrow at 1030. [facility] bus is unable to transfer with short notice. The patient states she has no one to bring her. I notified Courtney Márquez and also informed her of low grade fever yesterday. I notified Sohail Lockett APN as well. He states that he will discharge her tomorrow after dialysis and her start can be on Thursday at [facility]. I informed Courtney and she agrees. Welcome letter given to patient and she has already called [facility] transportation for Thursday to be here at 10:30 am. She had a room air oxygen saturation and it was 97%, so this does not qualify for portable oxygen.CM will continue to follow and assist with discharge planning/needs. DCP- Discharge Planning Updated by [email or web address]: Isabel Valdez on 07/18/20 3:[address] Patient Name: JAMIE BELL Admission Status: ER Accout number: [id number] Admission Date: 07-12-2020 : 1950 Admission Diagnosis:ACUTE RESPIRATORY FAILURE WITH HYPOXIA Attending: BETH RICKS Current LOS: 6 Anticipated DC Date: Planned Disposition: Home Primary Insurance: MEDICARE A & B Discharge Planning Comments: CM met with patient to complete initial dc planning assessment. CM educated patient on the CM role and verbal consent given by patient to complete assessment. Patient lives at home alone. At discharge patient plans to return and feels this is a safe discharge. CM discussed availability of home health, rehab services, and medical equipment. Patient refuses rehab or home health at this time States she has a nonfarm animal caretaker from [facility] that comes in daily and assists with bathing, dressing and house hold chores. States she no longer drives, but her family gets her what she needs. She uses [employer] transportation for physician visits. States she will have a family member take her home, but she will need the [employer] bus for her dialysis transportation. States she is not getting enough pads for her incontinence at home. She is unsure of the company she uses. I called [employer] and they state that there is a limit of $130 dollars a month they can bill Medicaid for supplies. I informed patient and she states she is getting the maximum amount. Patient states she does not have portable oxygen, I called Efrain with [employer] and patient is on services with them and she will need a room air oxygen level. I will order for the morning. CM will continue to follow and assist with discharge planning/needs. Silk Worker: [facility] - [facility]charge Planning Initial Assessment Updated by [email or web address]: Isabel Valdez on 07/18/20 4:07 pm * Is the patient Alert and Oriented? Yes * How many steps to enter\exit or inside your home? 0/0 * PCP Dr. Valerio * Pharmacy [facility] * Preadmission Environment Home Alone * ADLs Partial Dependent * Partial ADLs (Assistance needed) Ambulation Bathing Dressing Medication Management * Equipment Nebulizer Other Power Chair or Electric Scooter Walker Wheelchair * Other Equipment Incontinence pads Electric WC * List name and contact numbers for known caregivers / representatives who currently or will assist patient after discharge: Ivis Cox - [phone] ronald Cox (POA and grand son) [phone] * Verbal permission to speak to the caregivers and representatives has been obtained from the patient. Yes * Community resources currently utilized Private Duty Care * Please name any agencies selected above. [facility] * Additional services required to return to the preadmission environment? Yes * Can the patient safely return to the preadmission environment? Yes * Has this patient been hospitalized within the prior 30 days at any hospital? No Coverage Notice Reviewer: [id number] - Isabel Valdez Notice Issued Date-Time: 07/18/2020 16:20 Notice Type: IM Discharge Notice Notice Delivered To: Patient Relationship to Patient: Self Fire Investigation Manager Name: Delivery Method: HAND - Hand Delivered Yoanna Days: Prior Verbal Notification: Recipient Understood Notice: Yes Recipient Signature: Yes Med Rec Note Co-signed by Attending: Coverage Notice Comment: Reviewer: [id number] Joanne Valdez Notice Issued Date-Time: 07/18/2020 16:20 Notice Type: Patient Choice Letter Notice Delivered To: Patient Relationship to Patient: Self Fire Investigation Manager Name: Delivery Method: HAND - Hand Delivered Yoanna Days: Prior Verbal Notification: Recipient Understood Notice: Yes Recipient Signature: Yes Med Rec Note Co-signed by Attending: Coverage Notice Comment: Declination of home health or rehab signed Last DP export: 07/18/20 3:21 p Patient Name: JAMIE BELL Page [id number] at 1403 All edits/amendments must be made on the electronic document DICTATION DATE: 07/19/20 1403 YARD DEMURRAGE CLERK: SUSY 07/19/20 1403 RPT#: [id number] DC DATE: STATUS: ADM IN [facility] [address] [place] [address] END OF REPORT
[2020-07-19 16:58] VITALS: BP 168/64
[2020-07-19 20:56] VITALS: BP 148/53
[2020-07-20] VITALS: BP 172/61
[2020-07-20 04:00] VITALS: BP 153/68
[2020-07-20 06:47] LABS: BASOPHILS 0.5 % (0-2); EOSINOPHILS 6.1 % (0-7); HEMATOCRIT 28.8 % (36.0-48.0); HEMOGLOBIN 8.9 g/dL (12-16); IMMATURE GRANULOCYTES 0.2 % (0-5); LYMPHOCYTES 19.5 % (15-50); MCH 29.1 pg (26.0-34.0); MCHC 30.9 g/dL (31.0-37.0); MCV 94.1 fL (80.0-100.0); MEAN PLATELET VOLUME 9.8 fL (7.4-10.4); NEUTROPHILS 61.7 % (40-80); PLATELET COUNT 242 10x3/uL (130-400); RBC 3.06 10x6/uL (4.00-5.40); RDW 13.8 % (11.5-14.5); WBC 8.8 10x3/uL (4.8-10.8)
[2020-07-20 06:52] LABS: ANION GAP 12.4 mmol/L (8-16); CALCIUM 9.3 mg/dL (8.5-10.1); CARBON DIOXIDE 27.7 mmol/L (21.0-32.0); CREATININE - SERUM 5.1 mg/dL (0.6-1.3); PHOSPHOROUS 7.3 mg/dL (2.5-4.9); POTASSIUM - SERUM 4.1 mmol/L (3.5-5.1)
[2020-07-20 08:00] VITALS: BP 125/40
--- NOTE | 2020-07-20 10:30 | OP ---
PATIENT NAME: JAMIE BLACK MEDICAL RECORD: [id number] :[birth year] LOCATION:D.M2 D.2110 ADMISSION DATE:07/12/20 SURGEON: ABISAI FELIX MD DATE OF OPERATION: 07/17/2020 REFERRED BY: Dana Aguilar DO PREOPERATIVE DIAGNOSES: End-stage renal disease and dependence on hemodialysis without long-term dialysis access. POSTOPERATIVE DIAGNOSES: End-stage renal disease and dependence on hemodialysis without long-term dialysis access. OPERATION PERFORMED: Implantation of Artegraft loop AVG in the left upper extremity between the proximal brachial artery and proximal basilic/distal axillary vein. SURGEON: Abisai Felix MD ANESTHESIA: General with LMA per DIAL MARKER. PREOPERATIVE NOTE: Ms. Black is a 69-year-old white female patient who has initiated hemodialysis with a tunneled dialysis catheter, I placed in the right internal jugular vein yesterday. She is returned to the operating room today to create either a fistula or implant a graft in her left arm. Preoperative vein mapping studies indicate there may be a potential for creation of a right brachial artery to translocated basilic vein fistula. DESCRIPTION OF PROCEDURE: Under general anesthesia, the patient was prepped and draped in a sterile manner in supine position. She was not given a regional nerve block because of concerns for bleeding and hematoma formation with a regional nerve block. Based on her postop bleeding after TDC insertion yesterday and extensive bruising. She is on Plavix. She was prepped and draped in a sterile manner. I placed a [place] drain on her arm as a proximal venous tourniquet and applied nitroglycerin ointment to the intact skin of the arm and forearm. The arm was then examined with Duplex ultrasound, I found the cephalic vein in the upper arm to be tiny and simply too small for use for an AV fistula. The basilic vein was a good diameter. The arm itself was extremely fleshy and wound healing certainly a concern, especially in case she had a translocated basilic fistula created. The brachial artery was very small and this was prohibitively small. The axillary and proximal brachial artery and axillary artery and a proximal basilic vein were studied with ultrasound and were quite satisfactory for bracing a loop graft on. I first made a curvilinear incision across the antecubital space and up the medial aspect and exposed the brachial artery, which proved to be a deep structure, which was possibly of usable size for creation of a fistula. The radial artery had a proximal aberrant origin and was superficial and quite small. I did not feel that this was a situation that would lend itself to a successful basilic vein fistula creation and opted to go ahead with the graft. A transverse incision was made in the axilla and the axillary artery proximal brachial artery exposed and controlled with Silastic loops and the basilic vein or proximal primary basilic vein or distal axillary vein was also controlled with Silastic loops. An Artegraft was prepared per unix engineer's instructions and then shortened and beveled. The artery was occluded with Silastic loops and opened. OPERATIVE REPORT [id number] JAMIE BLACK It was flushed proximally and distally with heparinized saline and the graft and anastomosed end of graft to side of artery with running 6-0 Prolene. When the suture line was completed and the occluding loops on the artery were released, the suture line proved to be hemostatic. The graft and the artery were then flushed with heparinized saline and the graft again clamped. The graft was placed in a subcutaneous and apparently a very superficial subcutaneous tunnel from the axillary incision down to the antecubital wound where it then looped back up the inside of the arm through more tunneling and reached the proximal basilic vein, axillary vein preparation. The vein was occluded with vascular clamps and loops, it was opened and then flushed with heparinized saline. The graft was flushed with heparinized saline and it was demonstrated that there was no evidence of a kink or twist with good pressure and pulse transmitted all the way around the vein was then bevelled and the vein was opened and flushed with heparinized saline and an end-to-side, end of graft to side of vein anastomosis completed with running 6-0 Prolene. The occluding clamps and loops were released, and excellent flow developed immediately within the new AV graft and both the suture lines were hemostatic. The wounds were then both irrigated with Ancef and gentamicin solution, irrigated and infiltrated minimally with 0.25% Marcaine with epinephrine and then more generously infiltrated with 0.25% Marcaine without epinephrine. The arterial and venous anastomoses were treated with light application of fibrillar oxidized cellulose to complete hemostasis and the patient's wounds were then closed without the use of drains with interrupted inverted 3-0 Vicryl and running intracuticular 4-0 Stratafix. The incisions were further closed and sealed with Dermabond glue and dressed with Maxorb Ag, Tegaderm, and Cavilon skin prep. The patient was at that point awakened from her anesthetic and taken to the recovery room. Blood loss during the operation was trivial. I estimated less than 10 cc. None was replaced intraoperatively. Sponges, instruments, and needles were accounted for and no drain was used. PLAN: The patient will need to continue to use her dialysis catheter for the next 3-4 weeks. Her tissues are fragile and the subcutaneous tissues extensively fatty and her skin is thin. I think that she will need some extra time to develop fixation within the tunnel. I will need to see her back in my office and I will ask that we go ahead today and arrange that appointment for her to see me next week so that will be done before she is discharged, which will probably in another day or 2 from the hospital. TRANSINT:[id number] Voice Confirmation ID: [id number] DOCUMENT ID: [id number] ABISAI FELIX MD at 1030 CC: DANA AGUILAR DO [id number] DICTATION DATE: 07/17/20 1057 LEAD BI DEVELOPER: 07/17/202041 ADM IN [facility] [address] [place] [address]
[2020-07-20] MEDS ORDERED: OMNICEF300 MG PO (11:50)
[2020-07-20] MEDS ORDERED: ZITHROMAX250 MG PO (11:50)
[2020-07-20 12:00] VITALS: BP 141/53
--- NOTE | 2020-07-20 12:11 | MORECARE ---
CASE MANAGEMENT DISCHARGE SUMMARY PATIENT: JAMIE BELL UNIT: [id number] ADM DATE: 07/12/20 AGE: 69 : 48 SEX: F ROOM/BED: D.7981 AUTHOR: LINDA YUEN PHYSICIAN: REFERRING PHYSICIAN: BETH RICKS MD DATE OF SERVICE: 07/20/20 Discharge Plan Patient Name: JAMIE BELL Facility: [facility]:[place] : 1950 Planned Disposition: Home Anticipated Discharge Date: Discharge Date: Expected LOS: Initial Reviewer: [email or web address] Initial Review Date: 07/18/2020 Generated: 07/20/20 1:11 pm Comments DCP- Discharge Planning Updated by [id number]: Isabel Valdez on 07/19/20 12:[address] Received a welcome letter and a chair time for tomorrow at 1030. [facility] bus is unable to transfer with short notice. The patient states she has no one to bring her. I notified Courtney Márquez and also informed her of low grade fever yesterday. I notified Sohail Lockett APN as well. He states that he will discharge her tomorrow after dialysis and her start can be on Thursday at [facility]. I informed Courtney and she agrees. Welcome letter given to patient and she has already called [facility] transportation for Thursday to be here at 10:30 am. She had a room air oxygen saturation and it was 97%, so this does not qualify for portable oxygen.CM will continue to follow and assist with discharge planning/needs. DCP- Discharge Planning Updated by [email or web address]: Isabel Valdez on 07/18/20 3:[address] Patient Name: JAMIE BELL Admission Status: ER Accout number: [id number] Admission Date: 07-12-2020 : 1950 Admission Diagnosis:ACUTE RESPIRATORY FAILURE WITH HYPOXIA Attending: BETH RICKS Current LOS: 6 Anticipated DC Date: Planned Disposition: Home Primary Insurance: MEDICARE A & B Discharge Planning Comments: CM met with patient to complete initial dc planning assessment. CM educated patient on the CM role and verbal consent given by patient to complete assessment. Patient lives at home alone. At discharge patient plans to return and feels this is a safe discharge. CM discussed availability of home health, rehab services, and medical equipment. Patient refuses rehab or home health at this time States she has a healthcare recruiter from [facility] that comes in daily and assists with bathing, dressing and house hold chores. States she no longer drives, but her family gets her what she needs. She uses [employer] transportation for physician visits. States she will have a family member take her home, but she will need the [employer] bus for her dialysis transportation. States she is not getting enough pads for her incontinence at home. She is unsure of the company she uses. I called [employer] and they state that there is a limit of $130 dollars a month they can bill Medicaid for supplies. I informed patient and she states she is getting the maximum amount. Patient states she does not have portable oxygen, I called Efrain with [employer] and patient is on services with them and she will need a room air oxygen level. I will order for the morning. CM will continue to follow and assist with discharge planning/needs. Dehydrogenation Converter Operator: Isabel Valdez [facility] - Discharge Planning Initial Assessment Updated by [id number]: Isabel Valdez on 07/18/20 4:07 pm * Is the patient Alert and Oriented? Yes * How many steps to enter\exit or inside your home? 0/0 * PCP Dr. Valerio * Pharmacy [facility] * Preadmission Environment Home Alone * ADLs Partial Dependent * Partial ADLs (Assistance needed) Ambulation Bathing Dressing Medication Management * Equipment Nebulizer Other Power Chair or Electric Scooter Walker Wheelchair * Other Equipment Incontinence pads Electric WC * List name and contact numbers for known caregivers / representatives who currently or will assist patient after discharge: Ivis Cox - [phone] ronald Cox (POA and grand son) [phone] * Verbal permission to speak to the caregivers and representatives has been obtained from the patient. Yes * Community resources currently utilized Private Duty Care * Please name any agencies selected above. [facility] * Additional services required to return to the preadmission environment? Yes * Can the patient safely return to the preadmission environment? Yes * Has this patient been hospitalized within the prior 30 days at any hospital? No External Providers [facility] Next Contact Date: Service Request Date: Service Type: Resolution: Reviewer: Comments: Coverage Notice Reviewer: [email or web address] Joanne Valdez Notice Issued Date-Time: 07/18/2020 16:20 Notice Type: IM Discharge Notice Notice Delivered To: Patient Relationship to Patient: Self Selector Packer Name: Delivery Method: HAND - Hand Delivered Yoanna Days: Prior Verbal Notification: Recipient Understood Notice: Yes Recipient Signature: Yes Med Rec Note Co-signed by Attending: Coverage Notice Comment: Reviewer: [id number] Joanne Valdez Notice Issued Date-Time: 07/18/2020 16:20 Notice Type: Patient Choice Letter Notice Delivered To: Patient Relationship to Patient: Self Selector Packer Name: Delivery Method: HAND - Hand Delivered Yoanna Days: Prior Verbal Notification: Recipient Understood Notice: Yes Recipient Signature: Yes Med Rec Note Co-signed by Attending: Coverage Notice Comment: Declination of home health or rehab signed Last DP export: 07/19/20 1:03 p Patient Name: JAMIE BELL Page 37949 at 1211 All edits/amendments must be made on the electronic document DICTATION DATE: 07/20/20 1211 WOODEN FRAME BUILDER: SUSY 07/20/20 1211 RPT#: [id number] DC DATE: STATUS: ADM IN [facility] [address] [place] [address] END OF REPORT
--- NOTE | 2020-07-20 12:19 | MORECARE ---
CASE MANAGEMENT DISCHARGE SUMMARY PATIENT: JAMIE BELL UNIT: [id number] ADM DATE: 07/12/20 AGE: 69 : 48 SEX: F ROOM/BED: D.0334 AUTHOR: LINDA YUEN PHYSICIAN: REFERRING PHYSICIAN: BETH RICKS MD DATE OF SERVICE: 07/20/20 Discharge Plan Patient Name: JAMIE BELL Facility: [facility]:[place] : 1950 Planned Disposition: Home Anticipated Discharge Date: Discharge Date: Expected LOS: Initial Reviewer: [email or web address] Initial Review Date: 07/18/2020 Generated: 07/20/20 1:18 pm Comments DCP- Discharge Planning Updated by [email or web address]: Isabel Valdez on 07/20/20 11:[address] Patient's daughter, Ivis, , called me and wants patient to have [facility]. I spoke with patient and she is in agreement. I called Lizett with [facility] and clinical faxed. [place] today with [facility]. I spoke with Dr. Glover (on floor) and Sohail Lockett about fever last night. Sohail is discharging on PO antibiotics and I informed daughter on the phone. She states they will pick her up this afternoon. DCP- Discharge Planning Updated by [email or web address]: Isabel Valdez on 07/19/20 12:[address] Received a welcome letter and a chair time for tomorrow at 1030. [facility] bus is unable to transfer with short notice. The patient states she has no one to bring her. I notified Courtney Márquez and also informed her of low grade fever yesterday. I notified Sohail Lockett APN as well. He states that he will discharge her tomorrow after dialysis and her start can be on Thursday at [facility]. I informed Courtney and she agrees. Welcome letter given to patient and she has already called [facility] for Thursday to be here at 10:30 am. She had a room air oxygen saturation and it was 97%, so this does not qualify for portable oxygen. will continue to follow and assist with discharge planning/needs. DCP- Discharge Planning Updated by [email or web address]: Isabel Valdez on 07/18/20 3:[address] Patient Name: JAMIE BELL Admission Status: ER Accout number: [id number] Admission Date: 07-12-2020 : 1950 Admission Diagnosis:ACUTE RESPIRATORY FAILURE WITH HYPOXIA Attending: BETH RICKS Current LOS: 6 Anticipated DC Date: Planned Disposition: Home Primary Insurance: MEDICARE A & B Discharge Planning Comments: CM met with patient to complete initial dc planning assessment. CM educated patient on the CM role and verbal consent given by patient to complete assessment. Patient lives at home alone. At discharge patient plans to return and feels this is a safe discharge. CM discussed availability of home health, rehab services, and medical equipment. Patient refuses rehab or home health at this time States she has a healthcare associate from [facility] that comes in daily and assists with bathing, dressing and house hold chores. States she no longer drives, but her family gets her what she needs. She uses [employer] transportation for physician visits. States she will have a family member take her home, but she will need the [employer] bus for her dialysis transportation. States she is not getting enough pads for her incontinence at home. She is unsure of the company she uses. I called [employer] and they state that there is a limit of $130 dollars a month they can bill Medicaid for supplies. I informed patient and she states she is getting the maximum amount. Patient states she does not have portable oxygen, I called Efrain with [employer] and patient is on services with them and she will need a room air oxygen level. I will order for the morning. CM will continue to follow and assist with discharge planning/needs. Muskrat Trapper: Isabel Courtney DCPIA - Discharge Planning Initial Assessment Updated by [email or web address]: Isabel Courtney on 07/18/20 4:07 pm * Is the patient Alert and Oriented? Yes * How many steps to enter\exit or inside your home? 0/0 * PCP Dr. Valerio * Pharmacy [facility] * Preadmission Environment Home Alone * ADLs Partial Dependent * Partial ADLs (Assistance needed) Ambulation Bathing Dressing Medication Management * Equipment Nebulizer Other Power Chair or Electric Scooter Walker Wheelchair * Other Equipment Incontinence pads Electric WC * List name and contact numbers for known caregivers / representatives who currently or will assist patient after discharge: Ivis Cox - [phone] ronald Cox (POA and grand son) [phone] * Verbal permission to speak to the caregivers and representatives has been obtained from the patient. Yes * Community resources currently utilized [facility] * Please name any agencies selected above. [facility] * Additional services required to return to the preadmission environment? Yes * Can the patient safely return to the preadmission environment? Yes * Has this patient been hospitalized within the prior 30 days at any hospital? No Coverage Notice Reviewer: CARLA Valdez Notice Issued Date-Time: 07/18/2020 16:20 Notice Type: IM Discharge Notice Notice Delivered To: Patient Relationship to Patient: Self Xerox Machine Mechanic Name: Delivery Method: HAND - Hand Delivered Yoanna Days: Prior Verbal Notification: Recipient Understood Notice: Yes Recipient Signature: Yes Med Rec Note Co-signed by Attending: Coverage Notice Comment: Reviewer: CARLA Valdez Notice Issued Date-Time: 07/18/2020 16:20 Notice Type: Patient Choice Letter Notice Delivered To: Patient Relationship to Patient: Self [employer] Machine Mechanic Name: Delivery Method: HAND - Hand Delivered Yoanna Days: Prior Verbal Notification: Recipient Understood Notice: Yes Recipient Signature: Yes Med Rec Note Co-signed by Attending: Coverage Notice Comment: Declination of home health or rehab signed Last DP export: 07/20/20 11:11 a Patient Name: JAMIE BELL Page [id number] at 1219 All edits/amendments must be made on the electronic document DICTATION DATE: 07/20/20 1219 FACILITY EXAMINER: SUSY 07/20/20 1219 RPT#: [id number] DC DATE: STATUS: ADM IN [facility] [address] [place] [address] END OF REPORT
--- NOTE | 2020-07-20 16:12 | NUR ---
DISCHARGE INSTRUCTIONS WITH PATIENT, SALINE LOCK OUT, BELONGS PACKED, TO CAR VIA WHEEL CHAIR AND HOME WITH FAMILY.
--- NOTE | 2020-07-22 18:56 | MORECARE ---
CASE MANAGEMENT DISCHARGE SUMMARY PATIENT: JAMIE BELL UNIT: [id number] ADM DATE: 07/12/20 AGE: 69 : 48 SEX: F ROOM/BED: D.0166 AUTHOR: LINDA YUEN PHYSICIAN: REFERRING PHYSICIAN: BETH RICKS MD DATE OF SERVICE: 07/22/20 Discharge Plan Patient Name: JAMIE BELL Facility: [facility]:[place] : 1950 Planned Disposition: Home Anticipated Discharge Date: Discharge Date: 07/20/2020 Expected LOS: Initial Reviewer: [email or web address] Initial Review Date: 07/18/2020 Generated: 07/22/20 7:56 pm Comments DCP- Discharge Planning Updated by [id number]: Isabel Valdez on 07/20/20 11:[address] Patient's daughter, Ivis, , called me and wants patient to have [facility]. I spoke with patient and she is in agreement. I called Lizett with [facility] and clinical faxed. [place] today with [facility]. I spoke with Dr. Glover (on floor) and Sohail Lockett about fever last night. Sohail is discharging on PO antibiotics and I informed daughter on the phone. She states they will pick her up this afternoon. DCP- Discharge Planning Updated by [id number]: Isabel Valdez on 07/19/20 12:[address] Received a welcome letter and a chair time for tomorrow at 1030. [facility] bus is unable to transfer with short notice. The patient states she has no one to bring her. I notified Courtney Márquez and also informed her of low grade fever yesterday. I notified Sohail Lockett APN as well. He states that he will discharge her tomorrow after dialysis and her start can be on Thursday at [facility]. I informed Courtney and she agrees. Welcome letter given to patient and she has already called [facility] for Thursday to be here at 10:30 am. She had a room air oxygen saturation and it was 97%, so this does not qualify for portable oxygen. will continue to follow and assist with discharge planning/needs. DCP- Discharge Planning Updated by [email or web address]: Isabel Valdez on 07/18/20 3:[address] Patient Name: JAMIE BELL Admission Status: ER Accout number: [id number] Admission Date: 07-12-2020 : 1950 Admission Diagnosis:ACUTE RESPIRATORY FAILURE WITH HYPOXIA Attending: BETH RICKS Current LOS: 6 Anticipated DC Date: Planned Disposition: Home Primary Insurance: MEDICARE A & B Discharge Planning Comments: CM met with patient to complete initial dc planning assessment. CM educated patient on the CM role and verbal consent given by patient to complete assessment. Patient lives at home alone. At discharge patient plans to return and feels this is a safe discharge. CM discussed availability of home health, rehab services, and medical equipment. Patient refuses rehab or home health at this time States she has a long term acute care registered nurse from [facility] that comes in daily and assists with bathing, dressing and house hold chores. States she no longer drives, but her family gets her what she needs. She uses [employer] transportation for physician visits. States she will have a family member take her home, but she will need the [employer] bus for her dialysis transportation. States she is not getting enough pads for her incontinence at home. She is unsure of the company she uses. I called [employer] and they state that there is a limit of $130 dollars a month they can bill Medicaid for supplies. I informed patient and she states she is getting the maximum amount. Patient states she does not have portable oxygen, I called Efrain with [facility] and patient is on services with them and she will need a room air oxygen level. I will order for the morning. CM will continue to follow and assist with discharge planning/needs. Field Artillery Cannoneer: Isabel Valdez DCPIA - Discharge Planning Initial Assessment Updated by [email or web address]: Isabel Valdez on 07/18/20 4:07 pm * Is the patient Alert and Oriented? Yes * How many steps to enter\exit or inside your home? 0/0 * PCP Dr. Valerio * Pharmacy [facility] * Preadmission Environment Home Alone * ADLs Partial Dependent * Partial ADLs (Assistance needed) Ambulation Bathing Dressing Medication Management * Equipment Nebulizer Other Power Chair or Electric Scooter Walker Wheelchair * Other Equipment Incontinence pads Electric WC * List name and contact numbers for known caregivers / representatives who currently or will assist patient after discharge: Ivis Sánchez-[phone] ronald Cox (POA and grand son) [phone] * Verbal permission to speak to the caregivers and representatives has been obtained from the patient. Yes * Community resources currently utilized [facility] * Please name any agencies selected above. [facility] * Additional services required to return to the preadmission environment? Yes * Can the patient safely return to the preadmission environment? Yes * Has this patient been hospitalized within the prior 30 days at any hospital? No Coverage Notice Reviewer: [email or web address] Valdez Notice Issued Date-Time: 07/18/2020 16:20 Notice Type: IM Discharge Notice Notice Delivered To: Patient Relationship to Patient: Self Account Solutions Analyst Name: Delivery Method: HAND - Hand Delivered Yoanna Days: Prior Verbal Notification: Recipient Understood Notice: Yes Recipient Signature: Yes Med Rec Note Co-signed by Attending: Coverage Notice Comment: Reviewer: [email or web address] Vladez Notice Issued Date-Time: 07/18/2020 16:20 Notice Type: Patient Choice Letter Notice Delivered To: Patient Relationship to Patient: Self Account Solutions Analyst Name: Delivery Method: HAND - Hand Delivered Yoanna Days: Prior Verbal Notification: Recipient Understood Notice: Yes Recipient Signature: Yes Med Rec Note Co-signed by Attending: Coverage Notice Comment: Declination of home health or rehab signed Last DP export: 07/20/20 11:19 a Patient Name: JAMIE BELL Page [id number] at 1856 All edits/amendments must be made on the electronic document DICTATION DATE: 07/22/201855 GORE CUTTER: SUSY 07/22/201855 RPT#: [id number] DC DATE:07/20/20 STATUS: DIS IN [facility] [address] [place] [address] END OF REPORT
== END 2020-07-20 16:13 | disposition home health service (06) | DRG 264 ==
LOC: D.ER 17:59 → D.M2 20:39
PROVIDERS: Family Medicine; Internal Medicine Nephrology; Surgery; ADMIT Family Medicine; ATTEND Family Medicine
PROC: 0JH63XZ Insertion of Tunneled Vascular Access Device into Chest Subcutaneous Tissue and Fascia, Percutaneous Approach (ICD-10-PCS; 2020-07-16)
PROC: 05HM33Z Insertion of Infusion Device into Right Internal Jugular Vein, Percutaneous Approach (ICD-10-PCS; 2020-07-16)
PROC: B5131ZA Fluoroscopy of Right Jugular Veins using Low Osmolar Contrast, Guidance (ICD-10-PCS; 2020-07-16)
PROC: 5A1D70Z Performance of Urinary Filtration, Intermittent, Less than 6 Hours Per Day (ICD-10-PCS; 2020-07-16)
PROC: 03180JD Bypass Left Brachial Artery to Upper Arm Vein with Synthetic Substitute, Open Approach (ICD-10-PCS; principal; 2020-07-17 11:00)
DX: I13.2 Hypertensive heart and chronic kidney disease with heart failure and with stage 5 chronic kidney disease, or end stage renal disease (principal); J96.21 Acute and chronic respiratory failure with hypoxia; I50.33 Acute on chronic diastolic (congestive) heart failure; J18.9 Pneumonia, unspecified organism; N18.6 End stage renal disease; N17.9 Acute kidney failure, unspecified; N39.0 Urinary tract infection, site not specified; Z68.41 Body mass index [BMI] 40.0-44.9, adult; J98.11 Atelectasis; D63.1 Anemia in chronic kidney disease; G40.909 Epilepsy, unspecified, not intractable, without status epilepticus; E66.01 Morbid (severe) obesity due to excess calories; E83.42 Hypomagnesemia; K21.9 Gastro-esophageal reflux disease without esophagitis; E78.5 Hyperlipidemia, unspecified; E03.9 Hypothyroidism, unspecified; F32.9 Major depressive disorder, single episode, unspecified; I25.119 Atherosclerotic heart disease of native coronary artery with unspecified angina pectoris; Z86.73 Personal history of transient ischemic attack (TIA), and cerebral infarction without residual deficits

== ENCOUNTER → 2021-01-17 11:02 | Outpatient (CLI) | payer MEDICARE, MEDICAID ==
[~2021-01-17] VITALS: Ht 160 cm; Wt 104.0 kg
[~2021-01-17 11:02] MED LIST changes: +ADALAT CC90 MG PO; +MUCINEX600 MG PO; +PROPRANOLOL HCL20 MG PO; +SYMBICORT 16010.2 GM INH; +ZINC-220220 MG PO; +ZITHROMAX250 MG PO
[2021-01-17 12:07] VITALS: Ht 160 cm; Wt 104.0 kg
[2021-01-17 12:10] LABS: BILIRUBIN NEGATIVE (NEGATIVE); KETONE NEGATIVE (NEGATIVE); NITRITE NEGATIVE (NEGATIVE); UROBILINOGEN NORMAL mg/dL (< 2); WHITE CELLS - URINE 50 HPF (0-4)
[2021-01-17 12:11] LABS: BACTERIA MANY HPF (NONE SEEN); SQUAMOUS EPITHELIAL 0-5 HPF (0-4)
== END | disposition home or self-care (01) ==
LOC: D.OPS 10:00
PROVIDERS: ATTEND Internal Medicine Nephrology
DX: R06.02 Shortness of breath (principal); R30.9 Painful micturition, unspecified

== ENCOUNTER 2021-01-23 11:44 | Outpatient (CLI) | payer MEDICARE, MEDICAID ==
[~2021-01-23] VITALS: Ht 160 cm; Wt 103.6 kg
[2021-01-23 13:29] VITALS: BP 131/43; Ht 160 cm; Wt 103.6 kg
== END 2021-01-23 14:17 ==
LOC: D.OPS 11:44
PROVIDERS: ATTEND Internal Medicine Nephrology
DX: N39.0 Urinary tract infection, site not specified (principal)

== ENCOUNTER 2021-02-25 23:44 | Inpatient (IN) | payer MEDICARE, MEDICAID ==
[~2021-02-25] VITALS: Ht 160 cm; Wt 114.5 kg
--- NOTE | ~2021-02-25 | HEMODYNAMI ---
PATIENT:JAMIE BELL MEDICAL RECORD: [id number] : 46 LOCATION:[facility] D.2139 ADMISSION DATE: 02/26/21 Generatedon:115:53 Patient name: JAMIE BELL Patient #: [id number] S SN: [id number] : 1950 Date of study: 02/26/2021 Page: Of Hemodynamic Procedure Report Patient Data Patient Demographics Procedure consent was obtained First Name: JAMIE Gender: Female Last Name: RAY : 1950 Patient #: [id number] Age: 70 year(s) Race: N: [id number] Additional ID: [id number] Contact details [address]: [address] [place] [address] State: [place] City: [place] Zip code: [address] Past Medical History Allergies Allergen Reaction Date Comments Reported Other allergy 06/27/2019 penicillin, clonadine Other allergy 07/22/2019 PCN, Clonidine Other allergy 10/11/2020 CLONIDINE, PCN Other allergy 10/15/2020 PCN, CLONODINE Other allergy 02/26/2021 clonidine,PCN Admission Admission Data Admission Date: 02/26/2021 Admission Time: 1:48 Room #: 2139 Lab Results Lab Result Date: 02/26/2021 Lab Result Time: 0:00 Biochemistry Name Units Result Min Max BUN mg/dl 30 --(----)-* 7 18 Creatinine mg/dl 3.4 --(----)-* 0.6 1.3 eGFR ml/min 14 *-(----)-- 90 120 NONAFRICAN CBC Name Units Result Min Max Hemoglobin g/dl 9.9 *-(----)-- 13.5 17.5 Procedure Procedure Types Cath Procedure Diagnostic Procedure LHC LHC w/Coronaries Sedation Charges Moderate Sedation 25-39 minutes Procedure Description Procedure Date Procedure Date: 02/26/2021 Procedure Start Time: 15:26 Procedure End Time: 15:52 Procedure Staff Name Function Brooks Mahoney MD Performing Physician Sue Snell RT Monitor Althea Gutiérrez RT Scrub Michel Briscoe RN Nurse Procedure Data Cath Procedure Fluoroscopy Diagnostic fluoroscopy Total fluoroscopy Time: 8.6 time: 8.6 min min Diagnostic fluoroscopy Total fluoroscopy dose: 868 dose: 868 mGy mGy Contrast Material Contrast Material Type Amount (ml) Isovue 300 123 Entry Location Entry Primary Successful Side Size Upsize Upsize Entry Closure Succes sful Closure Location (Fr) 1 (Fr) 2 (Fr) Remarks Device Remarks Femoral Right 5 Fr 6 Fr Exoseal artery Short Estimated blood loss: 10 ml Diagnostic catheters Device Type Used For End Catheter Placement MULTIPACK JL 4.0 5Fr Procedure catheter MULTIPACK 3DRC 5Fr Procedure catheter DIAGNOSTIC AR1 MOD 5Fr Procedure catheter ([id number]) DIAGNOSTIC RCB 5Fr Procedure catheter ([id number]) MULTIPACK Pigtail 5 Fr Ventriculography catheter DIAGNOSTIC AL1 5Fr Procedure catheter ([id number]) Procedure Complications No complications Procedure Medications Medication Administration Route Dosage Oxygen etCO2 Nasal cannula 2 l/min Heparin Flush Bag added to field 2 bags (1000units/500ml NS) 0.9% NaCl I.V. 100 ml/hr Lidocaine 2% added to field 20 Fentanyl I.V. 50 mcg Versed I.V. 1 mg Fentanyl I.V. 50 mcg Versed I.V. 1 mg Hemodynamics Rest HGB: 9.9 (g/dl) Heart Rate: 67 (bpm) Pressure Samples Time Site Value (mmHg) Purpose Heart Use Rate(bpm) 15:42 LV 113/13,22 Snapshot 59 15:43 AO 137/103(79) Pullback 61 15:43 LV 125/21,28 Pullback 61 Gradients Valve Time Site 1 Site 2 Mean SEP/DFP Peak To Heart Use (mmHg) (sec/min) Peak Rate (mmHg) (bpm) Aortic 15:43 LV AO 0 17 0 61 125/21,28 137/103(79) Calculations Valve P-P Mean Valve Index Valve Source Name Gradient Area Flow (cm2) Aortic 0 0 0 0 Snapshots Pre Cath Intra NCS Post Cath Vital Signs Time Heart Resp SPO2 etCO2 NIBP (mmHg) Rhythm Pain Sedation Rate (ipm) (%) (mmHg) Status Level (bpm) 15:10:36 68 16 36.6 139/68(119) NSR 0 (11) 10(A) , No pain 15:15:31 58 17 100 0 120/52(90) NSR 0 (11) 10(A) , No pain 15:20:20 54 17 99 0 100/44(70) NSR 0 (11) 10(A) , No pain 15:26:16 59 17 100 0 112/52(87) NSR 0 (11) 9(A) , No pain 15:31:15 59 16 83 17.9 90/40(76) NSR 0 (11) 9(A) , No pain 15:36:04 57 17 100 9.7 92/40(74) NSR 0 (11) 9(A) , No pain 15:40:47 58 17 100 8.2 109/44(83) NSR 0 (11) 9(A) , No pain 15:45:30 64 16 100 3.7 120/56(85) NSR 0 (11) 9(A) , No pain 15:50:08 69 9 100 43.3 130/63(104) NSR 0 (11) 9(A) , No pain Medications Time Medication Route Dose Verified Delivered Reason Notes Eff ectiveness by by 15:09:25 Oxygen etCO2 2 Brooks Michel Per Nasal l/min [facility] Carlos Briscoe RN physician cannula 15:09:36 Heparin Flush added 2 Brooks Michel used for Bag to bags [facility] Carlos Briscoe RN procedure (1000units/500ml field [facility] NS) 15:09:46 0.9% NaCl I.V. 100 Brooks Michel Per ml/hr [facility] Carlos Briscoe RN physician 15:09:56 Lidocaine 2% added 20ml Brooks Mcdonaldy for local to vial [facility] Carlos Briscoe RN anesthetic field [facility] 15:22:04 Fentanyl I.V. 50 Brooks Pearson for mcg [facility] Carlos Briscoe RN sedation 15:22:11 Versed I.V. 1 mg Brooks Mcdonaldy for [facility] Carlos Briscoe RN sedation 15:27:55 Fentanyl I.V. 50 Brooks Pearson for mcg [facility] Carlos Briscoe RN sedation 15:27:59 Versed I.V. [address] Carlos Briscoe RN sedation Procedure Log Time Note 14:45:16 Informed consent obtained and on chart 14:45:40 Procedure Status Urgent Heart Cath (IP). 14:45:42 Time tracking: Regular hours (M-F 7:00 - 5:00) 14:45:45 Plan of Care:Hemodynamics will remain stable., Cardiac rhythm will remain stable., Comfort level will be maintained., Respiratory function will remain adequate., Patient/ family verbilizes understanding of procedure., Procedure tolerated without complication., Recovers from procedure without complications.. 14:45:48 Althea Gutiérrez RT(R) sent for patient. Start room use. 14:59:38 Patient received from City Grade II to CCL 1 Alert and oriented. Tansferred to table in Supine position. 14:59:39 Warm blankets applied, and tameka hugger turned on for patient comfort. 14:59:39 Correct patient and procedure confirmed by team. 15:08:44 ECG and BP/O2 sat monitors applied to patient. 15:08:44 Vital chart was started 15:09:25 Oxygen 2 l/min etCO2 Nasal cannula was administered by Michel Briscoe RN ; Per physician; Verbal order read back and verified. 15:09:36 Heparin Flush Bag (1000units/500ml NS) 2 bags added to field was administered by Michel Briscoe RN; used for procedure; Verbal order read back and verified. 15:09:46 0.9% NaCl 100 ml/hr I.V. was administered by Michel Briscoe RN; Per physician; Verbal order read back and verified. 15:09:56 Lidocaine 2% 20ml vial added to field was administered by Michel Briscoe RN; for local anesthetic; Verbal order read back and verified. 15:10:57 Baseline sample Acquired. 15:11:00 Full Disclosure recording started 15:11:02 - 15:11:08 H&P Date Dictated: 02/25/2021 Within 30 days and on chart.. 15:11:11 Pre-procedure instructions explained to patient. 15:11:14 Family unavailable. 15:11:16 Patient NPO since Midnight. 15:11:49 Patient allergic to Other allergyclonidine,PCN 15:11:51 Is the patient allergic to Iodine/contrast media? No. 15:11:54 Was the patient premedicated? Yes 15:11:55 Is patient on blood thinner?Yes 15:11:58 ACC The patient was administered the following blood thiners within the last 24 hours: ACCPlavix 15:12:39 Patient diabetic? Yes. 15:12:45 Snore? Yes 15:12:47 Sleep apnea? Yes 15:13:13 Patient pain scale 0/10 .. 15:13:29 IV patent on arrival in right forearm with 0.9% NaCl at [facility]. 15:16:25 Lab results completed and on chart. 15:17:04 Lab Result : BUN 30 mg/dl 15:17:04 Lab Result : eGFR NONAFRICAN 14 ml/min 15:17:04 Lab Result : Creatinine 3.4 mg/dl 15:17:04 Lab Result : Hemoglobin 9.9 g/dl 15:18:44 Right groin area was prepped with chlora-prep and draped in sterile fashion 15:18:45 Alarms reviewed by R. N. 15:18:46 Sharps counted by scrub and verified by R.N. 15:21:13 Physician arrived 15:21:14 --------ALL STOP TIME OUT------ 15:21:18 Final Timeout: patient, procedure, and site verified with staff and physician. All members of the team are in agreement. 15:21:20 Right groin site verified by team. 15:21:24 Fire Safety Assessment: A--An alcohol-based skin anteseptic being used preoperatively., C--Open oxygen or nitrous oxide is being used., D--An ESU, laser, or fiber-optic light is being used. 15:21:34 Physical assessment completed. ASA score P 3 - A patient with severe systemic disease as per Brooks Mahoney MD. 15:21:40 5) <15 or on dialysis Very severe, or end stage kidney failure. 15:22:04 Fentanyl 50 mcg I.V. was administered by Michel Briscoe RN; for sedation ; Verbal order read back and verified. 15:22:11 Versed 1 mg I.V. was administered by Michel Briscoe RN; for sedation; Verbal order read back and verified. 15:22:12 Maximum allowable contrast dose (3.7 X eGFR X 0.75)41 ml. 15:22:18 Sedation plan: IV Moderate Sedation Medication:Versed, Fentanyl 15:22:21 Use device set Femoral Dx 15:23:13 Procedure started. 15:26:17 Local anesthetic to right femoral artery with Lidocaine 2% by Brooks Gonzalez MD.INITIAL ACCESS ONLY 15:26:31 A 5 Fr sheath was inserted into the Right Femoral artery 15:26:37 ACIST Syringe (58849) opened to sterile field. 15:26:38 Bag Decanter (2002S) opened to sterile field. 15:26:38 Medline Cath Pack ([id number]) opened to sterile field. 15:26:40 ACIST Hand Control (90773) opened to sterile field. 15:26:41 ACIST Manifold (05568) opened to sterile field. 15:26:41 DIAGNOSTIC Multipack 5Fr catheter set (VK2744) opened to sterile field. 15:26:44 SHEATH 5FR [place] (PVJ171) opened to sterile field. 15:26:45 EMERALD Guide Wire (853-822) opened to sterile field. 15:26:46 Tegaderm 4 x 4 (1626W) opened to sterile field. 15:27:55 Fentanyl 50 mcg I.V. was administered by Michel Briscoe RN; for sedation ; Verbal order read back and verified. 15:27:58 A MULTIPACK JL 4.0 5Fr catheter was advanced over the wire and used for Procedure. 15:27:59 Versed 1 mg I.V. was administered by Michel Briscoe RN; for sedation; Verbal order read back and verified. 15:28:02 LCA angiography performed. 15:30:47 Catheter removed. 15:30:56 A MULTIPACK 3DRC 5Fr catheter was advanced over the wire and used for Procedure. 15:31:42 Catheter removed. 15:32:24 A DIAGNOSTIC AR1 MOD 5Fr catheter ([id number]) was advanced over the wire and used for Procedure. 15:34:47 Catheter removed. 15:34:53 A DIAGNOSTIC RCB 5Fr catheter ([id number]) was advanced over the wire and used for Procedure. 15:36:24 Catheter removed. 15:36:44 unable to cannulate 15:36:53 SHEATH 6FR [place] (YPN737) opened to sterile field. 15:37:24 Sheath upsized to a 6 Fr Short. 15:39:17 GUIDE 6FR ALR1-2 catheter ([id number]) opened to sterile field. 15:39:52 RCA angiography performed. 15:41:25 Catheter removed. 15:41:38 A MULTIPACK Pigtail 5 Fr catheter was advanced over the wire and used for Ventriculography. 15:41:41 LV angiography performed. 15:42:57 LV gram done using BOOTHE 15:43:05 EF : 40 % 15:44:38 A DIAGNOSTIC AL1 5Fr catheter (655182F) was advanced over the wire and used for Procedure. 15:44:50 RCA angiography performed. 15:47:02 EXOSEAL 6Fr (EX600) opened to sterile field. 15:47:07 Catheter removed. 15:47:17 Sheath removed intact; hemostasis achieved with Exoseal to the Right Femoral artery. 15:47:20 Procedure ended.(Physican Out) 15:47:43 Fluoroscopy time 08.60 minutes. 15:48:01 Fluoroscopy dose: 868 mGy 15:48:01 Flurop Dose total: 868 15:48:07 Dose Area Product 56951 mGy/cm. 15:48:26 Contrast amount:Isovue 300 123ml. 15:48:29 Maximum allowable dose exceeded? Yes. 15:48:30 Sharps counted by scrub and verified by R.N. 15:48:32 Insertion/operative site no bleeding no hematoma. 15:48:36 Post right femoral artery:stable 15:48:42 Post Procedure Pulses reassessed and unchanged 15:48:56 Post-procedure physical assessment completed. ASA score P 4 - A patient with severe systemic disease that is a constant threat to life as per Brooks Mahoney MD. 15:49:00 Post procedure rhythm: unchanged. 15:49:03 Estimated blood loss: 10 ml 15:49:04 Post procedure instruction explained to patient.Patient verbalizes understanding. 15:49:52 Procedure type changed to Cath procedure, Diagnostic procedure, LHC, LH C w/Coronaries, Sedation Charges, Moderate Sedation 25-39 minutes 15:49:56 Procedure and supply charges have been captured, reviewed, submitted an d are correct. 15:52:16 Procedure Complication : No complications 15:52:20 Vital chart was stopped 15:52:23 [facility] Findings: MVD- CABG consult 15:52:26 See physician's report for complete and final results. 15:52:33 Report given to [facility]. 15:52:36 Patient transfered to [facility] with Bed. 15:52:38 Procedure ended. 15:52:38 Full Disclosure recording stopped 15:52:43 End room use (Document Last) 15:53:04 End room use (Document Last) 15:53:28 End room use (Document Last) Device Usage Item Name Manufacture Quantity Catalog Hospital Part Current Minimal L ot# / Number Charge Number Stock Stock Serial# Code ACIST Acist 1 80792 324132 375427 563414 20 Syringe Medical (41928) Systems Inc Bag Microtek 1 2001S 929413 12572 875889 5 Decanter Medical Inc. () Medline Medline 1 [id number] 957574 66035 742532 5 Cath Pack ([id number]) ACIST Hand Acist 1 84821 063434 466147 274351 5 Control Medical (40708) Systems Inc ACIST Acist 1 18618 212048 336569 438007 5 Manifold Medical (71009) Systems Inc DIAGNOSTIC Cardinal 1 TN6747 355290 47769 185842 30 Multipack Health 5Fr catheter set (ME1941) SHEATH 5FR Terumo 1 SRV764 642475 016883 947724 5 [place] (ZPT113) EMERALD Cardinal 1 502-455 765022 953649 588687 5 Guide Wire Health (502-455) Tegaderm 4 3M 1 1626W 856904 364806 265903 5 x 4 (1626W) MULTIPACK Cardinal 1 362083 5 JL 4.0 5Fr Health catheter MULTIPACK Cardinal 1 332722 5 3DRC 5Fr Health catheter DIAGNOSTIC Cardinal 1 [id number] 832883 133816 055691 15 AR1 MOD 5Fr Health catheter (159016Z) DIAGNOSTIC Cardinal 1 [id number] 672894 151579 624444 5 RCB 5Fr Health catheter (847294N) SHEATH 6FR Terumo 1 XNJ500 523755 454465 877612 40 [place] (PTQ174) GUIDE 6FR Medtronic 1 LD1EUS11 530410 99163 718888 1 ALR1-2 catheter (MP4TKA84) MULTIPACK Cardinal 1 109467 5 Pigtail 5 Health Fr catheter DIAGNOSTIC Cardinal 1 [id number] 080016 389925 911999 15 AL1 5Fr Health catheter (592880N) EXOSEAL 6Fr Cardinal 1 EX600 622106 300869 638182 10 (EX600) Health Signature Audit [place] Stage Time Signature Unsigned Intra-Procedure 02/26/2021 Sue Snell 3:53:04 PM RT(R) Intra-Procedure 02/26/2021 Michel Briscoe 3:53:28 PM RN Intra-Procedure 02/26/2021 Brooks Ford 3:53:54 PM Carlos [facility] [address] [place] [address]
[2021-02-25] MEDS ORDERED: FUROSEMIDE40 MG PO (23:59)
[2021-02-25] MEDS ORDERED: ROCALTROL0.25 MCG PO (23:59)
[2021-02-26] VITALS (13 sets, daily range): BP systolic 93–164; BP diastolic 33–63; Ht 160 cm; Wt 114.5 kg
[2021-02-26] MEDS ORDERED: ZANAFLEX4 MG PO
[2021-02-26 00:16] LABS: BASOPHILS 0.3 % (0-2); EOSINOPHILS 1.6 % (0-7); HEMATOCRIT 30.2 % (36.0-48.0); HEMOGLOBIN 9.9 g/dL (12-16); IMMATURE GRANULOCYTES 0.2 % (0-5); LYMPHOCYTE ABS# 1.13 10x3/uL (1.18-3.74); LYMPHOCYTES 17.9 % (15-50); MCH 31.1 pg (26.0-34.0); MCHC 32.8 g/dL (31.0-37.0); MEAN PLATELET VOLUME 9.6 fL (7.4-10.4); MONOCYTES 9.3 % (2-11); NEUTROPHIL ABS# 4.48 10x3/uL (1.56-6.13); NEUTROPHILS 70.7 % (40-80); PLATELET COUNT 237 10x3/uL (130-400); RBC 3.18 10x6/uL (4.00-5.40); RDW 12.8 % (11.5-14.5); WBC 6.3 10x3/uL (4.8-10.8)
[2021-02-26 00:27] LABS: APTT 31.7 SECONDS (22.8-39.4); INR 1.11 (0.85-1.17); PROTIME 13.2 SECONDS (11.6-15.0)
[2021-02-26 00:48] LABS: ALBUMIN 3.3 g/dL (3.4-5.0); BILIRUBIN - TOTAL 0.43 mg/dL (0.2-1.3); C-REACTIVE PROTEIN 2.6 mg/dL (0.0-0.9); CALCIUM 10.1 mg/dL (8.5-10.1); CARBON DIOXIDE 25.3 mmol/L (21.0-32.0); CREATININE - SERUM 3.4 mg/dL (0.6-1.3); MAGNESIUM - SERUM 1.8 mg/dL (1.8-2.4); PROTEIN - SERUM 7.5 g/dL (6.4-8.2)
[2021-02-26 00:50] LABS: ANION GAP 16.5 mmol/L (8-16)
[2021-02-26 00:51] LABS: POTASSIUM - SERUM 2.8 mmol/L (3.5-5.1); TROPONIN-I 0.492 ng/mL (0.000-0.060)
--- NOTE | 2021-02-26 04:15 | NUR ---
PT RECEIVED TO 2138 AWAKE ALERT AND ORIENTED. REPORTS CHRONCI RIGHT SHULDER PAIN. MED REC COMPLETED PT REPORTS SHE IS ALLERGIC TO KLONOPIN NOT CLONODINE, SHE REPORTS SHE TAKES PLAVIX TID. SHE HAS A GRAFT TO RUE AND IS RESERVE RUE. SHE DENIES ANY ACUTE ISSUES. WILL CONTINUE TO MONITOR
[2021-02-26] MEDS ORDERED: PLAVIX75 MG PO (04:37)
[2021-02-26] MEDS ORDERED: HYDROCODON-ACE1 EA10 PO (04:37)
[2021-02-26 05:36] LABS: TROPONIN-I 2.448 ng/mL (0.000-0.060)
--- NOTE | 2021-02-26 06:17 | NUR ---
spoke with Annetta Gregory APN earlier to verify home meds, home medss resumed except Plavix as pt reports she takes this TID and this will need to be clarified with Cardiology
[2021-02-26 06:26] LABS: % SATURATION 18 % (15-55); IRON 43 ug/dl (35-150); TOTAL IRON BIND CAPACITY 233 ug/dl (260-445); UNSAT IRON BIND CAPACITY 190 ug/dl (150-375)
--- NOTE | 2021-02-26 06:39 | NUR ---
called troponin 2.448 to Annetta advised to notify card, paged cardilogy
--- NOTE | 2021-02-26 06:47 | NUR ---
dr mathew returned called valentin 2.448 relayed to him via phone
[2021-02-26 08:54] LABS: BASOPHILS 0.4 % (0-2); EOSINOPHILS 1.7 % (0-7); HEMATOCRIT 31.6 % (36.0-48.0); HEMOGLOBIN 10.2 g/dL (12-16); IMMATURE GRANULOCYTES 0.2 % (0-5); LYMPHOCYTE ABS# 1.15 10x3/uL (1.18-3.74); LYMPHOCYTES 22.2 % (15-50); MCH 31.5 pg (26.0-34.0); MCHC 32.3 g/dL (31.0-37.0); MEAN PLATELET VOLUME 10.1 fL (7.4-10.4); MONOCYTES 7.3 % (2-11); NEUTROPHIL ABS# 3.53 10x3/uL (1.56-6.13); NEUTROPHILS 68.2 % (40-80); PLATELET COUNT 233 10x3/uL (130-400); RBC 3.24 10x6/uL (4.00-5.40); RDW 12.9 % (11.5-14.5); WBC 5.2 10x3/uL (4.8-10.8)
[2021-02-26 08:57] LABS: MCV 97.5 fL (80.0-100.0)
[2021-02-26 08:59] LABS: ANION GAP 13.1 mmol/L (8-16); CARBON DIOXIDE 29.4 mmol/L (21.0-32.0); CHOL - HDL RATIO 2.5 ratio (2.3-4.1); CREATININE - SERUM 3.9 mg/dL (0.6-1.3); LDL-HDL RATIO 1.2 ratio (1.5-3.5); POTASSIUM - SERUM 3.5 mmol/L (3.5-5.1)
--- NOTE | 2021-02-26 17:33 | NUR ---
SBP 90S STARTED IVF 200 ML/HR. ADDED HUMIDIFICATION TO OXYGEN.
[2021-02-26 20:16] LABS: PLT FUNCT.(P2Y12) PLAVIX 255 PRU (194-418)
--- NOTE | 2021-02-27 02:52 | NUR ---
answered pt call light pt request nitro for left chest pain bp 120/52 hr 65, called tele with BB, no change to heart rythm noted. PRN nitro given at 0251
--- NOTE | 2021-02-27 03:05 | NUR ---
bp 110/44 cp reported as the same, VSS discussed with ot nurse for david Martinez, who reports pt has had pudding, crackers, 3 cups of coffee in th elast few hours.
[2021-02-27 04:00] VITALS: BP 120/52
[2021-02-27 06:21] LABS: BASOPHILS 0.4 % (0-2); EOSINOPHILS 3.4 % (0-7); HEMATOCRIT 30.1 % (36.0-48.0); IMMATURE GRANULOCYTES 0.2 % (0-5); LYMPHOCYTES 22.9 % (15-50); MCH 30.4 pg (26.0-34.0); MCHC 29.9 g/dL (31.0-37.0); MEAN PLATELET VOLUME 9.9 fL (7.4-10.4); MONOCYTES 7.6 % (2-11); NEUTROPHIL ABS# 3.44 10x3/uL (1.56-6.13); NEUTROPHILS 65.5 % (40-80); PLATELET COUNT 244 10x3/uL (130-400); RBC 2.96 10x6/uL (4.00-5.40); RDW 13.2 % (11.5-14.5); WBC 5.3 10x3/uL (4.8-10.8)
[2021-02-27 06:23] LABS: MCV 101.7 fL (80.0-100.0)
[2021-02-27 06:49] LABS: ALBUMIN 2.9 g/dL (3.4-5.0); ANION GAP 11.5 mmol/L (8-16); BILIRUBIN - TOTAL 0.31 mg/dL (0.2-1.3); CREATININE - SERUM 5.2 mg/dL (0.6-1.3); MAGNESIUM - SERUM 1.9 mg/dL (1.8-2.4); POTASSIUM - SERUM 4.5 mmol/L (3.5-5.1); PROTEIN - SERUM 6.7 g/dL (6.4-8.2); TROPONIN-I 3.729 ng/mL (0.000-0.060)
[2021-02-27 08:12] VITALS: BP 142/55
--- NOTE | 2021-02-27 08:19 | NUR ---
AM MEDS GIVEN AT THIS TIME, PT AWAKE AND ALERT. RR EVEN NON LABORED, O2 IN PLACE. MD ENTERED ROOM WHILE NURSE IN ROOM. NO FURTHER NEEDS VOICED BY PT. CLWR.
--- NOTE | 2021-02-27 11:14 | NUR ---
BED BATH COMPLETED WITH HELP OF RESIDENTIAL INSTRUCTOR. PT TOLERATED WELL. PT RR EVEN NON LABORED, O2 IN PLACE. NEW LINENS PLACED, NO FURTHER NEEDS VOICED. CLWR.
[2021-02-27 12:16] VITALS: BP 122/51
--- NOTE | 2021-02-27 13:18 | NUR ---
I WENT INTO ROOM AND EDUCATED PATIENT R/T SCD'S. SHE STATES THAT SHE WILL WEAR THEM FOR A WHILE. PLACED ON HER.
--- NOTE | 2021-02-27 13:25 | NUR ---
PRN PAIN MEDICATION GIVEN D/T PAIN REPORTED TO RIGHT SHOULDER. RR EVEN NON LABORED PT TALKING ON TELEPHONE. NO FURTHER NEEDS VOICED. CLWR .
--- NOTE | 2021-02-27 14:34 | NUR ---
HEAT PACK PLACED TO RIGHT SHOULDER PER REQUEST.
[2021-02-27 20:00] VITALS: BP 138/56
[2021-02-27 23:23] VITALS: BP 138/53
[2021-02-28] VITALS (15 sets, daily range): BP systolic 100–1136; BP diastolic 44–80
[2021-02-28 06:27] LABS: BASOPHILS 0.4 % (0-2); EOSINOPHILS 4.2 % (0-7); HEMATOCRIT 30.7 % (36.0-48.0); HEMOGLOBIN 9.3 g/dL (12-16); IMMATURE GRANULOCYTES 0.2 % (0-5); LYMPHOCYTES 24.6 % (15-50); MCH 31.2 pg (26.0-34.0); MCHC 30.3 g/dL (31.0-37.0); MEAN PLATELET VOLUME 10.1 fL (7.4-10.4); MONOCYTES 8.7 % (2-11); NEUTROPHIL ABS# 3.28 10x3/uL (1.56-6.13); NEUTROPHILS 61.9 % (40-80); PLATELET COUNT 243 10x3/uL (130-400); RBC 2.98 10x6/uL (4.00-5.40); RDW 13.1 % (11.5-14.5); WBC 5.3 10x3/uL (4.8-10.8)
[2021-02-28 06:42] LABS: ALBUMIN 3.1 g/dL (3.4-5.0); BILIRUBIN - TOTAL 0.35 mg/dL (0.2-1.3); CALCIUM 9.8 mg/dL (8.5-10.1); CARBON DIOXIDE 31.3 mmol/L (21.0-32.0); CREATININE - SERUM 4.3 mg/dL (0.6-1.3); MAGNESIUM - SERUM 2.2 mg/dL (1.8-2.4); POTASSIUM - SERUM 4.3 mmol/L (3.5-5.1); PROTEIN - SERUM 7.1 g/dL (6.4-8.2)
[2021-02-28 06:43] LABS: TROPONIN-I 2.012 ng/mL (0.000-0.060)
[2021-02-28 09:17] LABS: HEMOGLOBIN 9.6 g/dL (12-16); MCH 30.7 pg (26.0-34.0); MCV 102.2 fL (80.0-100.0); MEAN PLATELET VOLUME 9.9 fL (7.4-10.4); RBC 3.13 10x6/uL (4.00-5.40); WBC 5.2 10x3/uL (4.8-10.8)
[2021-02-28 09:32] LABS: BILIRUBIN - TOTAL 0.34 mg/dL (0.2-1.3); T4 THYROXIN - FREE 1.09 ng/dL (0.76-1.46); THYROID STIMULATING HORMONE 2.29 uIU/mL (0.36-3.74); URIC ACID 3.8 mg/dL (2.6-7.2)
[2021-02-28 09:36] LABS: APTT 28.5 SECONDS (22.8-39.4); INR 1.15 (0.85-1.17); PROTIME 13.6 SECONDS (11.6-15.0)
[2021-02-28 10:12] LABS: HEPATITIS C ANTIBODY <0.1 S/CO RAT (0.0-0.9)
--- NOTE | 2021-02-28 14:15 | OP ---
PATIENT NAME: JAMIE BELL MEDICAL RECORD: [id number] :46 LOCATION[facility] D.2306 ADMISSION DATE:02/26/21 SURGEON: RAMOS JAMES MD DATE OF OPERATION: 02/26/2021 PROCEDURE: Left heart catheterization, selective coronary angiography, right femoral artery approach. CATHETERS: A 5-Chinese sheath, 5/4 left and right Eli, 5/4 pig. The procedure was well tolerated. The patient was returned to the sharpe. Sheath removed. ExoSeal device was placed. FINDINGS: Left ventriculography in 30-degree BOOTHE view shows mild inferior hypokinesis. Overall, LV function, just minimally reduced to 40% to 45%. CORONARY ANATOMY: LEFT MAIN: Tapers into 80% stenosis involving the LAD and the previously placed stent. LAD: The LAD itself appears to be a good target distally. There is a medium size diagonal branch that is a good target. CIRCUMFLEX: Totally occluded, fills the left to left and right to left collaterals and questionable whether this runs in the true AV groove or is an OM probably to a vessel. RIGHT CORONARY ARTERY: Right coronary has a tight mid portion stenosis distal to the last placed stent. The PDA appears to be a good target distally. IMPRESSION: Marked improvement in LV function with aggressive restenosis. Dr. Vivas was consulted for possible bypass grafting. TRANSINT:[id number] Voice Confirmation ID: [id number] DOCUMENT ID: [id number] RAMOS JAMES MD at 1415 CC: [id number] DICTATION DATE: 02/26/21 1601 TRACK ANNOUNCER: 02/27/21 0129 ADM IN [facility] [address] [place] [address]
--- NOTE | 2021-02-28 16:48 | NUR ---
PATIENT TO TRANSFER TO 2114 AND REPORT GIVEN AND BLOOD SUGAR DONE WELL AND TREATED. PATIENT CONTINUES TO BE SHORT OF BREATHE AND AT TIMES WITH NO EXERTION AND LUNGS ARE CTA.
[2021-03-01] VITALS (42 sets, daily range): BP systolic 109–147; BP diastolic 36–57
[2021-03-01 05:34] LABS: BASOPHILS 0.6 % (0-2); EOSINOPHILS 4.8 % (0-7); HEMATOCRIT 29.5 % (36.0-48.0); IMMATURE GRANULOCYTES 0.4 % (0-5); LYMPHOCYTE ABS# 1.07 10x3/uL (1.18-3.74); LYMPHOCYTES 20.7 % (15-50); MCHC 30.5 g/dL (31.0-37.0); MCV 101.7 fL (80.0-100.0); MEAN PLATELET VOLUME 10.3 fL (7.4-10.4); MONOCYTES 10.4 % (2-11); NEUTROPHIL ABS# 3.27 10x3/uL (1.56-6.13); NEUTROPHILS 63.1 % (40-80); PLATELET COUNT 254 10x3/uL (130-400); WBC 5.2 10x3/uL (4.8-10.8)
[2021-03-01 05:44] LABS: ALBUMIN 2.8 g/dL (3.4-5.0); ANION GAP 10.4 mmol/L (8-16); BILIRUBIN - TOTAL 0.39 mg/dL (0.2-1.3); CALCIUM 9.2 mg/dL (8.5-10.1); CREATININE - SERUM 4.4 mg/dL (0.6-1.3); MAGNESIUM - SERUM 1.9 mg/dL (1.8-2.4); POTASSIUM - SERUM 4.4 mmol/L (3.5-5.1); PROTEIN - SERUM 6.9 g/dL (6.4-8.2)
--- NOTE | 2021-03-01 09:39 | NUR ---
0910: TO OR VIA BED.
--- NOTE | 2021-03-01 11:43 | NUR ---
CVL PLACED BY ANESTHESIA, STOCKING AND SCD'S PLACED POST OP, GENNARO.
--- NOTE | 2021-03-01 12:08 | NUR ---
Nutrition Reassessment/Follow-up: NPO for CABG today. Has been eating well otherwise. WT: 232# (03/01)Adj BW: 144.3# Labs noted: K+ 4.4, Glu 122, PO4 6.0 (02/28), Alb 2.8 Meds noted: Lasix, Calcitriol, Protonix, electrolyte protocol Est needs: 2941-4133 kcal/day (30-35 kcal/kg adj BW) 80-85 g protein/day (1.2-1.3 g/kg adj BW) Fluid: 1000 mL + UOP -Advance diet as tolerated as medically feasible. - follow-up: 03/04
--- NOTE | 2021-03-01 16:00 | NUR ---
PT RECEIVED FROM OR TO ROOM CV08. PT PLACED ON VENT ON ARRIVAL. PT ATTACHED TO ICU MONITORS. MIDSTERNAL INCISION WELL APPROXIMATED AND OPEN TO AIR. CT X2 SUBSTERNAL TO 20 CM SUCTION. SHOSHANA DRAIN ON L SUBSTERNAL AREA, COMPRESSED DRAINING BLOODY DRAINAGE. TPM WIRES ATTACHED TO TPM, TPM OFF AND AT BEDSIDE. SUBSTERNAL DRESSING CDI. LEON PRESENT AND DRAINING CONCENTRATED YELLOW URINE. RIGHT RADIAL ARTLINE WITH APPROPRIATE WAVEFORM. RIGHT LEG HARVEST SITES WITH COBAN FROM GROIN TO ANKLE. NO S/S OF DISTRESS NOTED AT THIS TIME. WILL CONTINUE TO MONITOR.
[2021-03-01 16:10] LABS: BASOPHILS 0.2 % (0-2); HEMATOCRIT 29.4 % (36.0-48.0); HEMOGLOBIN 9.2 g/dL (12-16); IMMATURE GRANULOCYTES 0.3 % (0-5); LYMPHOCYTE ABS# 0.34 10x3/uL (1.18-3.74); LYMPHOCYTES 5.9 % (15-50); MCH 30.7 pg (26.0-34.0); MCHC 31.3 g/dL (31.0-37.0); MEAN PLATELET VOLUME 9.6 fL (7.4-10.4); MONOCYTES 4.8 % (2-11); NEUTROPHIL ABS# 5.07 10x3/uL (1.56-6.13); NEUTROPHILS 87.8 % (40-80); PLATELET COUNT 215 10x3/uL (130-400); RDW 14.4 % (11.5-14.5); WBC 5.8 10x3/uL (4.8-10.8)
[2021-03-01 16:26] LABS: ALBUMIN 2.9 g/dL (3.4-5.0); BILIRUBIN - TOTAL 0.87 mg/dL (0.2-1.3); CARBON DIOXIDE 24.3 mmol/L (21.0-32.0); CREATININE - SERUM 4.1 mg/dL (0.6-1.3); POTASSIUM - SERUM 4.3 mmol/L (3.5-5.1)
[2021-03-01 16:29] LABS: INR 1.29 (0.85-1.17); PROTIME 14.9 SECONDS (11.6-15.0)
[2021-03-01 16:33] LABS: APTT 38.9 SECONDS (22.8-39.4)
--- NOTE | 2021-03-01 19:20 | NUR ---
REPORT REC'D AND CARE ASSUMED, REC'D PT ON VENT VIA 7.5 ETT TAPED SECURELY AT 22CM LIPLINE, SEE FLOWSHEET FOR VENT SETTINGS, PT AWAKENS TO VERBAL STIMULI, DOES NOT FOLLOW COMMANDS AT THIS TIME, MIDSTERNAL INCISION WITH DERMABOND, CDI, RIJ CVL DRSG CDI WITH NS @ 1OCC/HR, ZINACEF @ 12.8CC/HR, NITROGLYCERIN @ 23MCG/MIN OR 6.9CC, SUBSTERNAL DRSG CDI TO MEDIASTINAL CT'S X 2 @ 20CM H2O SUCTION, NO AIR LEAK NOTED, EXTERNAL P/M WIRES TAPED SECURELY TO ABDOMEN UNDER SUBSTERNAL DRSG, LEON PATENT DRAINING YELLOW URINE WITH SEDIMENT, RIGHT LEG HARVEST SITES WITH NAKUL AYAAN AND SCD TO LEFT LEG, LEFT RADIAL MARCIA FLEXION BOARD IN USE, ZEROED AND LEVELED WITH RETURN OF APPROPRIATE WAVEFORM, LEFT A/C PIV, SALINE LOCKED, RIGHT UPPER ARM FISTULA WITH PALP THRILL AND BRUIT AUSCULTATED, BILAT SOFT WRIST RESTRAINTS INTACT, 1:1 NURSE AT BS.
--- NOTE | 2021-03-01 20:00 | NUR ---
PT COUGHING and GAGGING ON ETT, ATTEMPTED TO CALM PT, ORAL CARE PROVIDED, BACK OF THROAT SUCTIONED WITH BLOOD TINGED RETURN OF BROWN MUCUS. PT CALMER AT THIS TIME.
[2021-03-01 20:44] LABS: BILIRUBIN NEGATIVE (NEGATIVE); KETONE NEGATIVE (NEGATIVE); NITRITE NEGATIVE (NEGATIVE); UROBILINOGEN NORMAL mg/dL (< 2)
[2021-03-01 20:46] LABS: BACTERIA MODERATE HPF (NONE SEEN); SQUAMOUS EPITHELIAL OCC HPF (0-4); WHITE CELLS - URINE >50 HPF (0-4)
--- NOTE | 2021-03-01 21:00 | NUR ---
PT MORE AWAKE, FOLLOWING COMMANDS AT THIS TIME, REQUIRING FREQUENT CALMING, RT NOTIFIED THAT PT IS MORE AWAKE, RT OFF FLOOR FOR CODE AT THIS TIME.
[2021-03-02] VITALS (96 sets, daily range): BP systolic 122–156; BP diastolic 40–72
--- NOTE | 2021-03-02 01:30 | NUR ---
PT AWAKENS INTERMITTENTLY, AGITATED AT FIRST BUT CALMS WITH REASSURANCE, ORAL CARE PROVIDED AND PT REPOSITIONED FOR COMFORT, WILL CONT TO MONITOR CLOSELY FOR CHANGES.
--- NOTE | 2021-03-02 02:45 | NUR ---
PT NODS HEAD YES WHEN ASKED IF HURTING, BP ELEVATED, 2MG MORPHINE GIVEN SLOW IVP WILL MONITOR FOR CHANGES.
[2021-03-02 05:14] LABS: BASOPHILS 0.1 % (0-2); EOSINOPHILS 0.1 % (0-7); HEMATOCRIT 31.9 % (36.0-48.0); HEMOGLOBIN 9.8 g/dL (12-16); IMMATURE GRANULOCYTES 0.3 % (0-5); LYMPHOCYTES 5.7 % (15-50); MCH 30.4 pg (26.0-34.0); MCHC 30.7 g/dL (31.0-37.0); MCV 99.1 fL (80.0-100.0); MEAN PLATELET VOLUME 9.7 fL (7.4-10.4); MONOCYTES 8.1 % (2-11); NEUTROPHIL ABS# 5.99 10x3/uL (1.56-6.13); NEUTROPHILS 85.7 % (40-80); PLATELET COUNT 231 10x3/uL (130-400); RBC 3.22 10x6/uL (4.00-5.40); RDW 15.1 % (11.5-14.5)
[2021-03-02 05:32] LABS: ALBUMIN 3.1 g/dL (3.4-5.0); ANION GAP 17.3 mmol/L (8-16); BILIRUBIN - TOTAL 0.51 mg/dL (0.2-1.3); CALCIUM 9.8 mg/dL (8.5-10.1); CARBON DIOXIDE 23.8 mmol/L (21.0-32.0); CREATININE - SERUM 4.9 mg/dL (0.6-1.3); PROTEIN - SERUM 6.7 g/dL (6.4-8.2)
[2021-03-02 05:33] LABS: MAGNESIUM - SERUM 2.6 mg/dL (1.8-2.4); POTASSIUM - SERUM 5.1 mmol/L (3.5-5.1)
--- NOTE | 2021-03-02 07:30 | NUR ---
PATIENT AWAKES TO VERBAL STIMULI SKIN WARM AND DRY. ETT SECURE TO VENT. BILATERAL LUNG SOUNDS EQUAL AND CLEAR. RIJ INFUSING WITH NTG, CLEVEPREX, PLASAMALYTE AND ZINCEF. CHEST X 2 TO 20 CM SUCTION NO AIRLEAK, SERSANG DRAINAGE. SHOSHANA BULB COMPRESSED WITH SERSANG DRAINAGE. LEON CATH PATENT YELLOW URINE. MONITOR SR. RESP THERAPY WEANING VENT TOLERATED. HEAD OF BED ELEVATED 30 DEGREES, ALL DRESSINGS DRY AND INTACT. MIDLINE CHEST INCISION INTACT.OPEN TO AIR. SCD AND AYAAN'S ON LOWER LEGS. NO DISTRESS. NODES HEAD TO PAIN. BILATERAL HAND RECYCLING COORDINATOR EQUAL AND STRONG. HEELS BRIDGED ON PILLOW.
--- NOTE | 2021-03-02 08:53 | NUR ---
TOLERATING CPAP ON VENT WELL. RESP RATE BELOW 18 TV GREATER THAN 500. NO DISTRESS. RESP DEEP AND REGULAR. NAPPING AT INTERVALS. SUCTION ORALLY PER PATIENT REQUEST
--- NOTE | 2021-03-02 09:15 | NUR ---
EXTUBATED TO NC AT 2 LITERS PER NC. PATIENT TOLERATED WELL. NO DISTRESS. GOOD COUGH EFFORT.
--- NOTE | 2021-03-02 09:23 | OP ---
PATIENT NAME: JAMIE BELL MEDICAL RECORD: [id number] :46 [facility] ADMISSION DATE:02/26/21 SURGEON: CHUNG LICONA MD DATE OF OPERATION: 03/01/2021 SURGEON: Chung Licona M.D. PROCEDURE PERFORMED: 1. Coronary artery bypass graft times 3 (left internal mammary artery to LAD, reverse saphenous vein graft from aorta to first diagonal and aorta to posterior descending artery). 2. Endoscopic saphenous vein harvest. PREOPERATIVE DIAGNOSES: Coronary artery disease including left main coronary artery stenosis with in-stent restenosis, history of ischemic cardiomyopathy and chronic renal failure, on hemodialysis, and myocardial infarction. POSTOPERATIVE DIAGNOSES: Coronary artery disease including left main coronary artery stenosis with in-stent restenosis history of ischemic cardiomyopathy and chronic renal failure, on hemodialysis. ANESTHESIA: General endotracheal anesthesia. ESTIMATED BLOOD LOSS: Total cardiopulmonary bypass with Cell Saver retransfusion. COMPLICATIONS: None. SPECIMENS: None. CONDITION: Stable. DISPOSITION: CV ICU. OPERATIVE TRANSFUSIONS: Two packed red blood cells, 2 platelet, 2 FFP. OPERATIVE FINDINGS: 1. Good quality greater saphenous vein about 6-7 mm in size from the right lower extremity. 2. Good quality left internal mammary artery with dense adhesions to the chest wall. 3. Large fatty heart. 4. LAD 2.0 mm with severe disease, deep in the epicardial fat at least 7 mm. 5. First diagonal 1.5 mm beyond the stent. 6. Posterior descending artery 1.5 mm with severe disease, anastomosis at the soft spot, but still with significant posterior plaque at this site. No sizable obtuse marginal target was identified. 7. Separation from cardiopulmonary bypass with low dose dopamine. Evidence of coagulopathy consistent with history of renal failure, on hemodialysis. PROCEDURE INDICATION: In-stent restenosis with myocardial infarction. OPERATIVE SUMMARY IN DETAIL: The patient was brought to the operating suite. General anesthesia was obtained, the patient was prepped and draped. Greater saphenous vein was harvested endoscopically from the right lower extremity, OPERATIVE REPORT [id number] JAMIE BELL saphenous vein divided with electrocautery. Vessels were ligated proximally and distally and removed. The side branches were tied. Leg was irrigated and closed in 2 layers. Median sternotomy incision was made. Subcutaneous tissue was divided with electrocautery. Sternum was divided with a saw. The left hemisternum was elevated. Left pleural cavity was entered. Left internal mammary artery and vein was taken down as a pedicle graft. Sternal retractor was placed. Pericardium was opened. Heparin was given. Aorta was cannulated. Dual stage venous cannula was inserted. The internal mammary was clipped distally and made ready for anastomosis. Activated clotting time was appropriately elevated. Retrograde cardioplegia cannula was inserted. The patient was placed on cardiopulmonary bypass. Sites for distal anastomosis was selected. Antegrade cardioplegia needle was inserted. The patient's temperature drifted downwardly. Crossclamp was placed. Cardioplegia was given antegrade and retrograde and then antegrade cardioplegia including down the completed vein grafts was repeated at 15- to 20-minute intervals. Distal anastomosis was performed in standard technique. Proximal anastomosis with single cross-clamp technique. Aortic root de-aired in steep Trendelenburg position by removing the cross clamp deairing the root tying the proximal anastomoses, deairing the vein graft and restoring the flow. Proximal and distal anastomotic sites inspected for bleeding. Single site, exposing the proximals. Good Doppler signals in all the grafts including the internal mammary. The patient was fully rewarmed, weaned from cardiopulmonary bypass when stable. The patient was decannulated. All cannulation sites were oversewn. Protamine was given. Thorough irrigation was undertaken. Left chest was evacuated. A drain was placed in the left chest. Internal mammary harvest site inspected for bleeding. The atrial and ventricular pacing wires were placed. A drain was placed in the mediastinum and both pleural cavities. Pericardial fat was loosely reapproximated and with the patient is stable chest was closed. Fascia was closed. Subcutaneous tissue was closed. Skin was closed. Dermabond was placed. The needle and sponge counts were reported as correct and the patient was taken to the ICU in stable condition. TRANSINT:[id number] Voice Confirmation ID: [id number] DOCUMENT ID: [id number] CHUNG LICONA MD at 0923 CC: JONATHAN ALMAZAN RIBAKARE, DIVINE DO and RAMOS JAMES MD [id number] DICTATION DATE: 03/01/21 1545 INDUSTRIAL TRAINING SPECIALIST: 03/02/21 0017 ADM IN [facility] [address] [place] [address]
--- NOTE | 2021-03-02 13:33 | NUR ---
tolerating dialysis well. ntg gtt off, cleveprex at 6 mg/hour. napping at intervals, sips of water, juice, few bites ofjello taken without difficulty swallowing.
--- NOTE | 2021-03-02 16:00 | NUR ---
MARCIA CRAWFORD'Shira PRESSURE HELD 5 MIN. NO BRUSING AT SITE. 2X2 FOLDED APPLIED SECURE WITH TEGRADERM. PATIENT TOLERATED WELL. DIALYSIS COMPLETED TOLERATED WELL REMOVED ONE LITER. NO URINE OUTPUT SINCE DIALYSIS STARTED. PATIENT NAPPING. PO FLUIDS AND JELLO TAKEN WITHOUT DIFFICULTY.
--- NOTE | 2021-03-02 17:42 | NUR ---
FEW SIPS OF JUICE AND CHICKEN BROTH. SUBSTERNAL DRESSING CHANGE DONE, SITES CLEAN WITH BETADINE, BIO PATCHES REPLACED AROUND PACER WIRES. STERILE 4X4 APPLIED AND SECURE WITH TEGRADERM. PATIENT TOLERATED POORLY. PACER WIRES CONNECTED TO BATTERY. BATTERY TURNED OFF. REPOSITIONED
--- NOTE | 2021-03-02 19:30 | NUR ---
REPORT REC'D AND CARE ASSUMED, REC'D PT RESTING IN BED, EYES CLOSED, AWAKENS TO VERBAL STIMULI, ORIENTED X 3, O2 @ 2LITERS VIA NC, MIDSTERNAL INCISION OPEN TO AIR, CDI, WELL APPROXIMATED, RIJ CVL DRSG CDI, WITH PLASMALYTE @ 10CC/HR AND CLEVIPREX @ 16CC OR 8MG/HR, MEDIASTINAL CTS X 2 TO 20CM H20 SUCTION, NO AIR LEAK NOTED, EXTERNAL TEMP P/M WIRES SECURED UNDER DRSG, P/M NOT ON, LEFT SUBSTERNAL SHOSHANA DRAIN, DRSG CDI, LEON PATENT DRAINING CLOUDY YELLOW URINE, GENERALIZED EDEMA, RIGHT LEG HARVEST SITES, OPEN TO AIR, CDI, TEDS AND SCDS ON, PPP WEAK, PT DENIES NEEDS, BED IN LOW POSITION, CALL LIGHT IN REACH.
--- NOTE | 2021-03-02 23:30 | NUR ---
PT REPOSITIONED ONTO LEFT SIDE AND SUPPORTED WITH PILLOW, PT CONFUSED TO PLACE AND TIME, REORIENTS EASILY, PT DENIES NEEDS.
[2021-03-03] VITALS (77 sets, daily range): BP systolic 106–166; BP diastolic 40–68
[2021-03-03 05:30] LABS: BASOPHILS 0.1 % (0-2); EOSINOPHILS 0.7 % (0-7); HEMATOCRIT 30.9 % (36.0-48.0); HEMOGLOBIN 9.4 g/dL (12-16); IMMATURE GRANULOCYTES 0.3 % (0-5); LYMPHOCYTE ABS# 0.72 10x3/uL (1.18-3.74); LYMPHOCYTES 8.3 % (15-50); MCH 30.4 pg (26.0-34.0); MCHC 30.4 g/dL (31.0-37.0); MEAN PLATELET VOLUME 10.1 fL (7.4-10.4); NEUTROPHILS 77.6 % (40-80); PLATELET COUNT 216 10x3/uL (130-400); RBC 3.09 10x6/uL (4.00-5.40); RDW 15.1 % (11.5-14.5); WBC 8.6 10x3/uL (4.8-10.8)
[2021-03-03 05:47] LABS: ALBUMIN 2.8 g/dL (3.4-5.0); ANION GAP 10.9 mmol/L (8-16); BILIRUBIN - TOTAL 0.49 mg/dL (0.2-1.3); CALCIUM 9.8 mg/dL (8.5-10.1); CARBON DIOXIDE 28.5 mmol/L (21.0-32.0); CREATININE - SERUM 4.7 mg/dL (0.6-1.3); MAGNESIUM - SERUM 2.2 mg/dL (1.8-2.4); POTASSIUM - SERUM 4.4 mmol/L (3.5-5.1); PROTEIN - SERUM 6.6 g/dL (6.4-8.2)
--- NOTE | 2021-03-03 08:10 | NUR ---
SLOW TO WAKE UP. SKIN WARM AND DRY. CAN NOT TELL WHAT YEAR IT IS OR WHO THE PRESIDENT IS, DID NOT KNOW SHE WAS IN [place]. REORIENTATED PLACE AND TIME. SAT UP IN BED PER BED. DRESSINGS DRY AND INTACT, LEON CATH PATENT. RIJ INFUSING WITH CLEVEPREX.CHEST TUBES TO 20 CM SUCTION SERSANG DRAINAGE NO AIR LEAK. SHOSHANA BULB COMPRESSED SERSANG DRAINAGE. MOANS WHEN REPOSITIONED OR HAS TO MOVE HER ARMS.
--- NOTE | 2021-03-03 09:15 | NUR ---
UP IN CHAIR AT BEDSIDE PER PHYSICAL THERAPY. PATEINT ABLE TO STAND AND PIVOT TO CHAIR. TOLERATED FAIR. FEEDING SELF OATMEAL.
--- NOTE | 2021-03-03 09:56 | TEE ---
PATIENT:JAMIE BELL MEDICAL RECORD: [id number] LOCATION:[place] [address] AGE OF PATIENT: 70 ADMISSION DATE: 02/26/21 SEX: F REFERRING PHYSICIAN: INTERPRETING PHYSICIAN: RAMOS JAMES MD TRANSESOPHAGEAL ECHOCARDIOGRAM Date: 03/01/21 ARACELI CHARGE Y INDICATIONS: HYPERTENSION PREMEDICATIONS: PATIENT'S RESPONSE PROCEDURE DOPPLER MEASUREMENTS: LVIT LA PA 100 RA LVOT 99 RVOT 65 Asc. Ao 178 AV Gradient Peak 12.7 AV Mean 4.8 AV Area 1.7 MV Gradient Peak 3.7 MV Mean 1.7 MV Area INTERPRETATION: Doppler: 2-D: COLOR FLOW DOPPLER NORMAL SALINE STUDY: MISCELLANOUS: DIAGNOSIS: PLAN: Board Certified Orthodontist:3 Dr. Hinojosa Pad Cutter: Lorelei MARTELL COMMENTS: DATE OF SERVICE: 03/02/2021 PROCEDURE: Intraoperative ARACELI. Preoperative shows normal LV wall motion, normal wall thickening, EF greater than or equal to 55%. Aortic valve is tricuspid with good valve excursion. Left atrium appears normal. Mitral valve appears normal with good excursion. Trace MR. Postoperatively, normal wall motion in all cardiac segments. Normal LV function. Aortic valve is tricuspid with good valve excursion. Left atrium TRANSESOPHAGEAL ECHOCARDIOGRAM REPORT [id number] AMBREEN BELL is normal. Mitral valve appears normal. Trace MR. TRANSINT:[id number] Voice Confirmation ID: [id number] DOCUMENT ID: [id number] at 0956 CC: [id number] DICTATION DATE: 03/02/21 1135 PSYCH SOCIAL WORKER: 03/02/211955 ADM IN [place] [id number] [place] [id number]
--- NOTE | 2021-03-03 10:29 | NUR ---
TOLERATING UP IN CHAIR WELL. GOOD COUGH. NO DISTRESS
[2021-03-04] VITALS (31 sets, daily range): BP systolic 119–179; BP diastolic 48–65
[2021-03-04 04:33] LABS: BASOPHILS 0.1 % (0-2); EOSINOPHILS 1.1 % (0-7); HEMATOCRIT 29.4 % (36.0-48.0); HEMOGLOBIN 8.9 g/dL (12-16); IMMATURE GRANULOCYTES 0.3 % (0-5); LYMPHOCYTE ABS# 0.72 10x3/uL (1.18-3.74); LYMPHOCYTES 9.8 % (15-50); MCH 30.2 pg (26.0-34.0); MCHC 30.3 g/dL (31.0-37.0); MCV 99.7 fL (80.0-100.0); MONOCYTES 11.3 % (2-11); NEUTROPHIL ABS# 5.66 10x3/uL (1.56-6.13); NEUTROPHILS 77.4 % (40-80); PLATELET COUNT 193 10x3/uL (130-400); RBC 2.95 10x6/uL (4.00-5.40); RDW 14.4 % (11.5-14.5); WBC 7.3 10x3/uL (4.8-10.8)
[2021-03-04 04:52] LABS: ALBUMIN 2.7 g/dL (3.4-5.0); ANION GAP 14.3 mmol/L (8-16); BILIRUBIN - TOTAL 0.49 mg/dL (0.2-1.3); CALCIUM 9.7 mg/dL (8.5-10.1); CREATININE - SERUM 5.7 mg/dL (0.6-1.3); POTASSIUM - SERUM 4.3 mmol/L (3.5-5.1); PROTEIN - SERUM 6.6 g/dL (6.4-8.2)
--- NOTE | 2021-03-04 11:09 | NUR ---
Nutrition Follow-up: POD 3 CABG. Poor appetite/PO intake. C/o slight nausea this AM. Refusing Nepro. -BM; +flatus. HD MWF. Diet: Renal PO intake: 0-25% Wt: 234.7# (03/04); 232# (03/01) Labs noted: K+ 4.3, Glu 117, Ca 9.7, Alb 2.7 Meds noted: Colace, Protonix, Lasix, Calcitriol -Encourage PO intake and honor food preferences within diet restrictions. -RD follow-up: 03/06
--- NOTE | 2021-03-04 21:55 | NUR ---
ASSUMED CARE OF PT AND CARE CONT'D. PT WITH SOME QUESTIONS APPRORPRIATE AND OTHERS NOT. REORIENTED. EXPLAINED TO PT WHY SHE WAS MOVED ROOMS. 1949 PT WITH LCW PAIN. STATES HAS NOT HAD BEFORE. STATES NOT AT SURGICAL SITE BUT AT HER HEART. DR WILSON PAGEShira. EKG DONE. PT STATES 05/02. WHEN SEAT COVERS TRIMMER DOING EKG PT STATES HAD THE PAIN EARLIER TODAY WHEN ON HD. ALSO STATES AT THIS TIME LEG CRAMPING. DAUGHTER CALLED SHORTLY THEREAFTER UPSET PT WAS MOVED ROOMS AND FLOORS AND INQUIRING ABOUT CHEST PAIN. UPDATED DAUGHTER AND QUESTIONS ANSWERED. REASSURED SAME TEAM TAKING CARE OF MOM BOTH NURSES AND DOCTORS AND PT GETTING SAME CARE. [address] LICONA. ORDERES RECEIVED AND CARRIED OUT. TROPONIN DRAWN AND MORPHINE DOSE GIVEN. 2114 PAIN GONE. 2129 DAUGHTER CALLED AND UPDATED AND CARE DISCUSSED WITH SEAT COVERS TRIMMER. QUESTIONS ANSWWERED. VERBALIZED UNDERSTANDING.
--- NOTE | 2021-03-04 23:00 | NUR ---
DR LICONA NOTIFIED OF TROP RESULT OF 0.505. NO NEW ORDERS NOTED.
[2021-03-05] VITALS (24 sets, daily range): BP systolic 88–140; BP diastolic 53–86
[2021-03-05 05:10] LABS: BASOPHILS 0.5 % (0-2); EOSINOPHILS 3.1 % (0-7); HEMATOCRIT 28.5 % (36.0-48.0); HEMOGLOBIN 8.7 g/dL (12-16); IMMATURE GRANULOCYTES 0.5 % (0-5); MCH 30.3 pg (26.0-34.0); MCHC 30.5 g/dL (31.0-37.0); MCV 99.3 fL (80.0-100.0); MEAN PLATELET VOLUME 10.4 fL (7.4-10.4); MONOCYTES 16.5 % (2-11); NEUTROPHIL ABS# 4.04 10x3/uL (1.56-6.13); NEUTROPHILS 62.4 % (40-80); RBC 2.87 10x6/uL (4.00-5.40); RDW 13.8 % (11.5-14.5); WBC 6.5 10x3/uL (4.8-10.8)
[2021-03-05 05:14] LABS: PLATELET COUNT 241 10x3/uL (130-400)
[2021-03-05 05:33] LABS: ALBUMIN 2.5 g/dL (3.4-5.0); ANION GAP 14.8 mmol/L (8-16); BILIRUBIN - TOTAL 0.53 mg/dL (0.2-1.3); CALCIUM 9.2 mg/dL (8.5-10.1); CREATININE - SERUM 5.2 mg/dL (0.6-1.3); POTASSIUM - SERUM 3.8 mmol/L (3.5-5.1); PROTEIN - SERUM 6.5 g/dL (6.4-8.2)
--- NOTE | 2021-03-05 06:20 | NUR ---
PT DRESSING TO SUB STERNAL AREA CLEANED AND DRESSED AND ASSISTED UP TO CHAIR. CHRIS WELL.
--- NOTE | 2021-03-05 13:12 | NUR ---
0700 BEDSIDE SHIFT REPORT RECIEVED AND CARE ASSUMED OF PATIENT.. SEE FLOW SHEET FOR SHIFT ASSESMENT FINDINGS....PATIENT IS OOB SITTING IN CHAIR PER DR LICONA STANDARD 0740 DR LEIVA IN TO SEE PAIENT UPDATE GIVEN AND 0800 BREAKFAST IS SERVED AND PATIENT IS FEEDING SELF... MEDS GIVEN.. 0900 DR SALINAS IN UNIT SEEING PATIENTS.. 1100 CONTINUES OOB IN CHANIR .. WANTS TO GO BACK TO BED EXPLAINED T PATIENT THAT SHE IS TO STAY IN CHAIR PER DR LICONA POST OP ORDERS.. 1200 FSBS DON AND LUNCH SERVED FEEDING SELF.. 1220 DR MARAVILLA IN TO SEE PATIENT. 1245 DAUGHTER IN TO SEE PATIENT UPDATE IS GIVEN..
--- NOTE | 2021-03-05 15:29 | NUR ---
1400 ASSISTED BACK TO BED... 1415 DIALYSIS AT BEDSIDE.. PAIN MED GIVEN PER PT REQUEST... 1430 DAUGHTER AT BEDSIDE...
--- NOTE | 2021-03-05 17:46 | NUR ---
6210 DIALYSIS COMPLETE DIET SERVED TO PATIENT.. FEEDING SELF...
[2021-03-06] VITALS (22 sets, daily range): BP systolic 112–162; BP diastolic 42–97
[2021-03-06 04:38] LABS: BASOPHILS 0.5 % (0-2); EOSINOPHILS 3.2 % (0-7); HEMATOCRIT 29.9 % (36.0-48.0); HEMOGLOBIN 9.1 g/dL (12-16); IMMATURE GRANULOCYTES 0.5 % (0-5); LYMPHOCYTES 21.3 % (15-50); MCH 29.9 pg (26.0-34.0); MCHC 30.4 g/dL (31.0-37.0); MCV 98.4 fL (80.0-100.0); MEAN PLATELET VOLUME 10.3 fL (7.4-10.4); MONOCYTES 14.5 % (2-11); NEUTROPHIL ABS# 3.95 10x3/uL (1.56-6.13); PLATELET COUNT 263 10x3/uL (130-400); RBC 3.04 10x6/uL (4.00-5.40); RDW 13.6 % (11.5-14.5); WBC 6.6 10x3/uL (4.8-10.8)
[2021-03-06 04:55] LABS: ALBUMIN 2.5 g/dL (3.4-5.0); ANION GAP 14.2 mmol/L (8-16); BILIRUBIN - TOTAL 0.54 mg/dL (0.2-1.3); CALCIUM 9.3 mg/dL (8.5-10.1); CARBON DIOXIDE 26.6 mmol/L (21.0-32.0); CREATININE - SERUM 5.2 mg/dL (0.6-1.3); POTASSIUM - SERUM 3.8 mmol/L (3.5-5.1); PROTEIN - SERUM 6.7 g/dL (6.4-8.2)
--- NOTE | 2021-03-06 05:23 | NUR ---
SITE CARE AND DRESSING PLACED TO SUBSTERNAL AREA. 5CC FROM SHOSHANA DRAIN. BATHED WITH CHG. ASSISTED TO BS RECLINER AND LINENS CHANGED. CHRIS WELL.
--- NOTE | 2021-03-06 07:40 | NUR ---
BREAKFAST TRAY SERVED, PT SITTING UP IN RECLINER EATING, NO NEEDS VOCIED, CALL LIGHT IN REACH, WILL MONITOR
--- NOTE | 2021-03-06 09:15 | NUR ---
PT BACK IN BED AT THIS TIME, CALL LIGHT IN REACH
--- NOTE | 2021-03-06 09:24 | NUR ---
PT STARTED ON DILAYSIS AT THIS TIME
--- NOTE | 2021-03-06 11:54 | NUR ---
PT FINISHED WITH DIALYSIS, TOLERATED WELL
--- NOTE | 2021-03-06 12:30 | NUR ---
ASSISSTED PT BACK TO RECLINER, LUNCH TRAY SERVED, CALL LIGHT IN REACH
--- NOTE | 2021-03-06 15:25 | NUR ---
Nutrition consult: Visited with pt re: renal diet Pt reports she has not been getting her binders and her PO4 is usually under good control. Pt has had low K during this hospital stay. Food preferences reviewed with pt. RDN helped pt fill out menu for dinner and breakfast tomorrow. Pt reports jeyson is bringing cheese burger and milkshake to her tonight. Asked pt to not drink the shake and take the cheese off the burger. Provided pt with printed renal diet handout. Pt is seen by a renal dietitian every month in dialysis so she is very edcucated on a renal diet. RDN will follow-up for questions: 03/07/21 Recommendations: PO4 Start PO4 binders
--- NOTE | 2021-03-06 15:37 | NUR ---
PATIENT UP IN CHAIR WITH NSG.
--- NOTE | 2021-03-06 17:24 | NUR ---
ASSISTED PT BACK TO BED, TOELRATED WELL, CALL LIGHT IN REACH, WILL MONITOR
[2021-03-07] VITALS (24 sets, daily range): BP systolic 91–147; BP diastolic 41–59
[2021-03-07 04:36] LABS: BASOPHILS 0.7 % (0-2); HEMATOCRIT 30.5 % (36.0-48.0); HEMOGLOBIN 9.5 g/dL (12-16); IMMATURE GRANULOCYTES 0.4 % (0-5); LYMPHOCYTE ABS# 1.49 10x3/uL (1.18-3.74); LYMPHOCYTES 20.5 % (15-50); MCH 30.4 pg (26.0-34.0); MCHC 31.1 g/dL (31.0-37.0); MCV 97.8 fL (80.0-100.0); MEAN PLATELET VOLUME 10.8 fL (7.4-10.4); MONOCYTES 15.4 % (2-11); NEUTROPHIL ABS# 4.28 10x3/uL (1.56-6.13); PLATELET COUNT 267 10x3/uL (130-400); RBC 3.12 10x6/uL (4.00-5.40); RDW 13.5 % (11.5-14.5); WBC 7.3 10x3/uL (4.8-10.8)
[2021-03-07 04:58] LABS: ALBUMIN 2.6 g/dL (3.4-5.0); ANION GAP 12.4 mmol/L (8-16); BILIRUBIN - TOTAL 0.51 mg/dL (0.2-1.3); CALCIUM 9.2 mg/dL (8.5-10.1); CARBON DIOXIDE 28.9 mmol/L (21.0-32.0); CREATININE - SERUM 4.4 mg/dL (0.6-1.3); POTASSIUM - SERUM 4.3 mmol/L (3.5-5.1); PROTEIN - SERUM 6.1 g/dL (6.4-8.2)
--- NOTE | 2021-03-07 06:16 | NUR ---
SITE CARE TO SUBSTERNAL AREA DONE WITH DRESSING CHANGE. NO REDNESS OF DRAINAGE AT SITE. PT CHRIS WELL. HD HERE SETTING UP FOR HD. DID NOT GET OOB ABOUT TO START HD. PT DOES NOT WANT TEDS BACK ON AT THIS TIME. REQUESTS LEAVE OFF LITTLE LONGER.
--- NOTE | 2021-03-07 06:30 | NUR ---
PT STARTED ON DILAYSIS AT THIS TIME
--- NOTE | 2021-03-07 08:45 | NUR ---
PT FINISHED WITH DILAYSIS, TOLERATED WELL
--- NOTE | 2021-03-07 10:00 | NUR ---
ASSISTED PT UP TO CHAIR, TOLERATED WELL, CALL LIGHT IN REACH
--- NOTE | 2021-03-07 11:50 | NUR ---
ASSISTED PT BACK TO BED, DR LOPEZ NURSE SUSAN HERE TO PULL PACER WIRES AND SHOSHANA DRAIN, PT TOLERATED WELL, CALL LIGHT IN REACH
--- NOTE | 2021-03-07 15:19 | NUR ---
COMPLETE BATH GIVEN AND LINENS CHANGED, PT ASSISTED UP TO RECLINER, NO NEEDS VOICED, CALL LIGHT IN REACH, WILL MONITOR
[2021-03-08] VITALS (23 sets, daily range): BP systolic 92–140; BP diastolic 36–70
[2021-03-08 04:56] LABS: BASOPHILS 0.2 % (0-2); EOSINOPHILS 2.6 % (0-7); HEMOGLOBIN 9.3 g/dL (12-16); IMMATURE GRANULOCYTES 0.4 % (0-5); LYMPHOCYTE ABS# 1.48 10x3/uL (1.18-3.74); LYMPHOCYTES 14.8 % (15-50); MCV 96.8 fL (80.0-100.0); MEAN PLATELET VOLUME 10.5 fL (7.4-10.4); MONOCYTES 12.6 % (2-11); NEUTROPHIL ABS# 6.92 10x3/uL (1.56-6.13); NEUTROPHILS 69.4 % (40-80); PLATELET COUNT 288 10x3/uL (130-400); RDW 13.5 % (11.5-14.5)
[2021-03-08 05:19] LABS: ALBUMIN 2.6 g/dL (3.4-5.0); ANION GAP 12.7 mmol/L (8-16); BILIRUBIN - TOTAL 0.49 mg/dL (0.2-1.3); CALCIUM 9.5 mg/dL (8.5-10.1); CARBON DIOXIDE 28.2 mmol/L (21.0-32.0); CREATININE - SERUM 4.5 mg/dL (0.6-1.3); MAGNESIUM - SERUM 1.8 mg/dL (1.8-2.4); PHOSPHOROUS 5.7 mg/dL (2.5-4.9); POTASSIUM - SERUM 3.9 mmol/L (3.5-5.1); PROTEIN - SERUM 6.6 g/dL (6.4-8.2)
--- NOTE | 2021-03-08 08:05 | NUR ---
REHAB PRESCREEN RECEIVED. UPON CHART REVIEW, PHYSICAL THERAPY SIGNED OFF AND SHE DID NOT HAVE OCCUPATIONAL THERAPY ORDERED. SHE HAS [employer], AND WILL REQUIRE 2 DISCIPLINES TO MEET THE REQUIREMENTS FOR INPATIENT REHAB. SHE HAS THE MEDICAL REQUIREMENTS, HOWEVER. I LEFT A VOICEMAIL FOR CHAN HESS RN CM YESTERDAY EVENING ASKING IF SHE FELT PT WOULD NEED OCCUPATIONAL THERAPY AND IF SHE FELT THAT PHYSICAL THERAPY WAS WRONG WITH THE STATEMENT THAT SHE WAS AT HER BASELINE. I WILL WAIT FOR A RESPONSE IN ORDER TO PROCEED. THANK YOU FOR THIS REFERRAL. ARNOLDO TAYLOR RN CLINICAL LIAISON, INPATIENT REHAB.
--- NOTE | 2021-03-08 12:23 | NUR ---
Nutrition Reassessment/Follow-up: POD 7 CABG. Good appetite. Ate majority of breakfast this AM. Denies N/V. -BM; +flatus. HD yesterday. Diet: Renal, chop meats PO intake: 100% x 3 yesterday Wt: 229# (03/08); 223# (02/26)Adj BW: 143.5# Labs noted: Na 132, K+ 3.9, Glu 99, PO4 5.7, Alb 2.6 Meds noted: Colace, Calcitriol, Protonix, electrolyte protocol Est needs: 3688-7557 kcal/day (30-35 kcal/kg adj BW) 80-85 g protein/day (1.2-1.3 g/kg adj BW) Fluid: 1000 mL + UOP or per MD -MD may consider PO4 binder 2/2 hyperphosphatemia. -RD follow-up: 03/11
[2021-03-09] VITALS (12 sets, daily range): BP systolic 125–146; BP diastolic 53–449
[2021-03-09 04:30] LABS: HEMOGLOBIN 9.1 g/dL (12-16); MCH 30.4 pg (26.0-34.0); MCHC 31.4 g/dL (31.0-37.0); MEAN PLATELET VOLUME 10.3 fL (7.4-10.4); RBC 2.99 10x6/uL (4.00-5.40); RDW 13.4 % (11.5-14.5)
--- NOTE | 2021-03-09 20:00 | NUR ---
PATIENT TRANSFERED FROM ICU AFTER DIALYSIS. PATIENT IS ALERT AND ORIENTED, RESTING COMFORTABLY IN BED. RESPIRATIONS ARE EVEN AND UNLABORED. NO S/S OF DISTRESS. NO C/O PAIN. DIALYSIS NURSE CALLED TO GIVE REPORT. TOOK 1.5L OFF. PATIENT TOLERATED WELL. BP 113/49 WAS TOLS THAT PATIENT DIASTOLIC IS ALWAYS LOW. NEEDS MET. WILL CPOC.
--- NOTE | 2021-03-09 20:00 | NUR ---
RECEIVED CALL FROM AFTER HOU[facility]ARM[facility]. PHARMACIST QUESTIONIN PLAVIX 75 MG PO TID ORDER. PAGED NEPHROLOGY. SPOKE WITH GRECIA PECK APN AND DR. AGUILAR, CLARIFIED ORDER. ORIGINAL ORDER DCd AND NEW ORDER OF PLAVIX 75 MG PO DAILY ENTERED.
--- NOTE | 2021-03-09 22:18 | NUR ---
ADMINISTERED PAIN MEDICATION PER PATIENT REQUEST. PATIENT STATES THAT SHE IS HAVING PAIN ALL OVER.
[2021-03-10 00:41] VITALS: BP 141/48
[2021-03-10 03:32] VITALS: BP 136/46
--- NOTE | 2021-03-10 07:20 | NUR ---
RECIEVE REPORT. ALERT AND ORIENTED X4. SITTING UP IN BED. DENIES ANY NEEDS. CONTINUE PLAN OF CARE AND SAFETY PRECAUTIONS.
[2021-03-10 09:50] VITALS: BP 143/43
[2021-03-10 13:13] VITALS: BP 150/61
--- NOTE | 2021-03-10 17:00 | NUR ---
ALERT AND ORIENTED X4. SITTING UP IN BED. SINUS RHYTHM ON TELEMETRY. DENIES ANY NEEDS. CONTINUE PLAN OF CARE AND SAFETY PRECAUTIONS.
[2021-03-10 17:13] VITALS: BP 145/56
[2021-03-10 20:19] VITALS: BP 140/51
[2021-03-11 03:25] VITALS: BP 136/38
--- NOTE | 2021-03-11 07:20 | NUR ---
RECIEVE REPORT. ALERT AND ORIENTED X4. SITTING UP IN BED WATCHING TV. DENIES ANY NEEDS. CONTINUE PLAN OF CARE AND SAFETY PRECAUTIONS. SINUS PHYLLIS 55 ON TELEMETRY.
[2021-03-11 07:51] LABS: BASOPHILS 0.5 % (0-2); EOSINOPHILS 2.7 % (0-7); HEMATOCRIT 26.4 % (36.0-48.0); HEMOGLOBIN 8.1 g/dL (12-16); IMMATURE GRANULOCYTES 0.4 % (0-5); LYMPHOCYTE ABS# 1.13 10x3/uL (1.18-3.74); LYMPHOCYTES 20.2 % (15-50); MCH 29.5 pg (26.0-34.0); MCHC 30.7 g/dL (31.0-37.0); MEAN PLATELET VOLUME 10.2 fL (7.4-10.4); NEUTROPHIL ABS# 3.43 10x3/uL (1.56-6.13); NEUTROPHILS 61.2 % (40-80); PLATELET COUNT 299 10x3/uL (130-400); RBC 2.75 10x6/uL (4.00-5.40); RDW 13.4 % (11.5-14.5); WBC 5.6 10x3/uL (4.8-10.8)
[2021-03-11 08:11] LABS: ALBUMIN 2.3 g/dL (3.4-5.0); ANION GAP 14.7 mmol/L (8-16); BILIRUBIN - TOTAL 0.4 mg/dL (0.2-1.3); CALCIUM 9.5 mg/dL (8.5-10.1); CARBON DIOXIDE 27.4 mmol/L (21.0-32.0); CREATININE - SERUM 5.5 mg/dL (0.6-1.3); PHOSPHOROUS 8.9 mg/dL (2.5-4.9); POTASSIUM - SERUM 4.1 mmol/L (3.5-5.1); PROTEIN - SERUM 6.4 g/dL (6.4-8.2)
[2021-03-11 08:29] VITALS: BP 149/53
--- NOTE | 2021-03-11 11:48 | NUR ---
REHAB PRESCREEN RECEIVED. I WILL LOOK AT THE CHART, AND IF THE PATIENT IS APPROPRIATE, WE WILL HAVE TO SEND CLINICALS TO [facility] AND WAIT FOR AUTHORIZATION. I WILL LET ZOE CARDENAS RN CM KNOW WHAT PROCESS WE ARE TAKING AFTER CHART IS REVIEWED. THANK YOU FOR THIS REFERRAL. ARNOLDO TAYLOR RN CLINICAL LIAISON, INPATIENT REB.
--- NOTE | 2021-03-11 14:28 | NUR ---
Nutrition Reassessment/Follow-up: POD 10 CABG. Eating well. Awaiting possible IP rehab placement. Diet: Renal ADA Wt: 252# (03/09); 223# (02/26)Adj BW: 149.3# Labs noted: K+ 4.1, PO4 8.9, Alb 2.3 Meds noted: Calcitriol, Lasix, Nephrovite, Miralax, electrolyte protocol Est needs: 5009-0876 kcal/day (30-35 kcal/kg adj BW) 80-90 g protein/day (1.2-1.3 g/kg adj BW) Fluid: 1000 mL + UOP -MD may consider PO4 binder 2/2 hyperphosphatemia. -RD will follow up within 7 days if pt still admitted.
[2021-03-11 17:35] VITALS: BP 138/44
--- NOTE | 2021-03-11 19:11 | NUR ---
ASSESSMENT COMPLETE, PT IN BED RESTING WITH EYES CLOSED. AROUSES TO VERBAL STIMULI. RESPERATIONS NON LABORED ON O2 AT 2 LITERS VIA NC. MIDSTERNAL INCISION OPEN TO AIR, NO DRAINAGE NOTED. INCISIONS ALSO NOTED TO RIGHT LEG FROM CABG, OPEN TO AIR, NO DRAINAGE NOTED. RIGHT ARM AVF (+,+) DRSG INTACT. PT DENIES NEEDS AT THIS TIME, BED LOW, CL IN REACH.
[2021-03-11 20:00] VITALS: BP 148/52
[2021-03-12] VITALS: BP 128/49
--- NOTE | 2021-03-12 03:23 | NUR ---
RESTING WITH EYES CLOSED, NO S/S DISTRESS NOTED.
[2021-03-12 05:45] LABS: BASOPHILS 0.3 % (0-2); EOSINOPHILS 2.8 % (0-7); HEMATOCRIT 26.7 % (36.0-48.0); HEMOGLOBIN 8.3 g/dL (12-16); IMMATURE GRANULOCYTES 0.3 % (0-5); LYMPHOCYTE ABS# 1.09 10x3/uL (1.18-3.74); MCHC 31.1 g/dL (31.0-37.0); MCV 96.4 fL (80.0-100.0); MEAN PLATELET VOLUME 10.4 fL (7.4-10.4); MONOCYTES 11.4 % (2-11); NEUTROPHIL ABS# 4.06 10x3/uL (1.56-6.13); NEUTROPHILS 67.2 % (40-80); PLATELET COUNT 319 10x3/uL (130-400); RBC 2.77 10x6/uL (4.00-5.40); RDW 13.4 % (11.5-14.5); WBC 6.1 10x3/uL (4.8-10.8)
[2021-03-12 06:11] LABS: ALBUMIN 2.3 g/dL (3.4-5.0); ANION GAP 13.1 mmol/L (8-16); BILIRUBIN - TOTAL 0.38 mg/dL (0.2-1.3); CALCIUM 9.5 mg/dL (8.5-10.1); CARBON DIOXIDE 27.8 mmol/L (21.0-32.0); CREATININE - SERUM 4.5 mg/dL (0.6-1.3); POTASSIUM - SERUM 3.9 mmol/L (3.5-5.1); PROTEIN - SERUM 6.6 g/dL (6.4-8.2)
--- NOTE | 2021-03-12 06:25 | NUR ---
I have reviewed this patient and I concur with the Shift Assessment completed by the Licensed Practical Nurse today this shift.
[2021-03-12 08:19] VITALS: BP 124/45
--- NOTE | 2021-03-12 17:16 | NUR ---
OT NOTE: WENT TO PT ROOM 3 TIMES...PT IN DIALYSIS.
[2021-03-12 20:00] VITALS: BP 151/52
[2021-03-13] VITALS: BP 115/64
[2021-03-13 04:00] VITALS: BP 152/61
[2021-03-13 07:00] LABS: BASOPHILS 0.3 % (0-2); EOSINOPHILS 3.3 % (0-7); HEMATOCRIT 28.4 % (36.0-48.0); HEMOGLOBIN 8.7 g/dL (12-16); IMMATURE GRANULOCYTES 0.3 % (0-5); LYMPHOCYTE ABS# 1.13 10x3/uL (1.18-3.74); LYMPHOCYTES 18.7 % (15-50); MCH 29.8 pg (26.0-34.0); MCHC 30.6 g/dL (31.0-37.0); MCV 97.3 fL (80.0-100.0); MEAN PLATELET VOLUME 9.7 fL (7.4-10.4); MONOCYTES 13.2 % (2-11); NEUTROPHIL ABS# 3.87 10x3/uL (1.56-6.13); NEUTROPHILS 64.2 % (40-80); PLATELET COUNT 310 10x3/uL (130-400); RBC 2.92 10x6/uL (4.00-5.40); RDW 13.6 % (11.5-14.5)
[2021-03-13 07:13] LABS: ALBUMIN 2.5 g/dL (3.4-5.0); ANION GAP 12.5 mmol/L (8-16); BILIRUBIN - TOTAL 0.42 mg/dL (0.2-1.3); CALCIUM 9.9 mg/dL (8.5-10.1); CARBON DIOXIDE 27.7 mmol/L (21.0-32.0); CREATININE - SERUM 4.4 mg/dL (0.6-1.3); PHOSPHOROUS 6.9 mg/dL (2.5-4.9); POTASSIUM - SERUM 4.2 mmol/L (3.5-5.1); PROTEIN - SERUM 6.9 g/dL (6.4-8.2)
[2021-03-13 08:17] VITALS: BP 149/56
--- NOTE | 2021-03-13 08:35 | NUR ---
po meds given at this time. patient tolerated well. nad noted.
--- NOTE | 2021-03-13 08:59 | NUR ---
EMLA cream placed on pt's fistula
--- NOTE | 2021-03-13 09:55 | NUR ---
PATIENT TRANSPORTED TO DIALYSIS
--- NOTE | 2021-03-13 13:13 | NUR ---
DIALYSIS COMPLETE. 1L FLUID OFF. PT VSS. RESP EVEN. ROOM AIR. NO COMPLAINTS. NO PROBLEMS DURING TX.
--- NOTE | 2021-03-13 17:45 | NUR ---
OT NOTE: PT COMPLETED SIDE ROLLING WITH MIN A. PT COMPLETED SUPINE TO SIT WITH MIN-MOD A. PT COMPLETED EOB SITTING BALANCE WITH SBA-CGA. PT COMPLETED HAIR GROOMING WITH SETUP. PT COMPLETED FACE HYGIENE WITH SETUP. PT REQUIRED MAX A LB HYGIENE. [phone] LONNIE CACERES COTA
[2021-03-13 18:43] LABS: BILIRUBIN NEGATIVE (NEGATIVE); KETONE NEGATIVE (NEGATIVE); NITRITE NEGATIVE (NEGATIVE); UROBILINOGEN NORMAL mg/dL (< 2)
[2021-03-13 18:44] LABS: BACTERIA MANY HPF (NONE SEEN); SQUAMOUS EPITHELIAL 0-5 HPF (0-4); WHITE CELLS - URINE >50 HPF (0-4)
--- NOTE | 2021-03-13 19:30 | NUR ---
PT IN BED, AAO X 4, RESP EVEN AND UNLABORED, NO DISTRESS NOTED, CL IN REACH, SR UP X 2.
[2021-03-13 20:00] VITALS: BP 143/51
--- NOTE | 2021-03-13 23:43 | MORECARE ---
CASE MANAGEMENT DISCHARGE SUMMARY PATIENT: JAMIE BELL UNIT: [id number] ADM DATE: 02/26/21 AGE: 70 : 48 SEX: F ROOM/BED: [facility] AUTHOR: WILFRID,DOC PHYSICIAN: REFERRING PHYSICIAN: PASTORA SHORT DO DATE OF SERVICE: 03/13/21 Case Management Discharge Planning Summary DCP REVIEW SUMMARY ANTICIPATED D/C DATE: EXPECTED LOS : CASE STATUS: DCP Initiated INITIAL REVIEW: 02/26/2021 INITIAL REVIEWER: Queenie Hester FINAL DISCHARGE DISPOSITION: : FINAL REVIEWER: FINAL REVIEW DATE: DCP Focus Questions & Answers DCP Screen QUESTION: ANSWER High Risk Factors: : Hosp related to CHF, COPD, DM, End Stage Ds, CVA, CA DCP Evaluation QUESTION: ANSWER Patient's ability to cope with chronic illness : d. No chronic illness Would patient like to participate in any Care Coordination programs (if applicable): : Not applicable Mental health screen: : No mental health history DCP Re-evaluation QUESTION: ANSWER Would patient like to participate in any Care Coordination programs (if applicable): : Not applicable PATIENT: JAMIE BELL ENCOUNTER: [id number] MEDICAL RECORD#: [id number] ADMISSION DATE: 02/26/2021 DISCHARGE DATE: ATTENDING MD: PASTORA PARSONS : AGE: 70 MARITAL STATUS: S DC PLAN ID: [id number] FACILITY: [facility] PRINTED ON: 03/13/21 23:42 CT All edits/amendments must be made on the electronic document DICTATION DATE: 03/13/212341 TREATMENT COUNSELOR: DM 03/13/212341 RPT#: [id number] DC DATE: STATUS: ADM IN [facility] [address] [place] [address] END OF REPORT
[2021-03-14] VITALS: BP 138/50
--- NOTE | 2021-03-14 00:13 | MORECARE ---
CASE MANAGEMENT DISCHARGE SUMMARY PATIENT: JAMIE BELL UNIT: [id number] ADM DATE: 02/26/21 AGE: 70 : 48 SEX: F ROOM/BED: D.5357 AUTHOR: LINDA YUEN PHYSICIAN: REFERRING PHYSICIAN: PASTORA SHORT DO DATE OF SERVICE: 03/14/21 Case Management Discharge Planning Summary DCP REVIEW SUMMARY ANTICIPATED D/C DATE: EXPECTED LOS : CASE STATUS: DCP Initiated INITIAL REVIEW: 02/26/2021 INITIAL REVIEWER: Queenie Hester FINAL DISCHARGE DISPOSITION: : FINAL REVIEWER: FINAL REVIEW DATE: DCP Focus Questions & Answers DCP Screen QUESTION: ANSWER High Risk Factors: : Hosp related to CHF, COPD, DM, End Stage Ds, CVA, CA DCP Evaluation QUESTION: ANSWER Family / Caregiver's ability to cope with chronic illness: : b. Minimal (occasionally not dependable to meet pt's. needs, can meet pt's. basic ADL's) Patient's current cognitive status: : *Oriented to person, place, situation, time and present Patient gives permission to discuss discharge plans with: (name, relationship and number) : RANDA [phone], Patient's ability to cope with chronic illness : a. Adequate (0-3 ED visits in 6 mos., adequate financial resources, attends scheduled appts.) Does the patient have the ability to pay for or attain post discharge needs / services? : Yes Functional screen assessment: : Unable to manage ADLs without immediate ongoing assistance Family / Caregiver's ability to cope with chronic illness: : a. Adequate (ability to meet patient's medical needs, ensures patient attends medical appts.) Physical Status: : Partial care dependence Is there a likelihood that the patient will require additional services to return to the preadmission environment? : Yes Living Arrangements: : Home Alone with Support Partial Dependence, assistance required for: : Bathing Results of this evaluation have been discussed with: : Patient Baseline cognitive status: : *Oriented to person, place, situation, time and present Preadmission facility can/cannot provide post hospital level of care needs: : Can - at higher level of care than preadmission Facility / Agency name and contact information from Question 3 (if applicable): : [facility] Medication Management: : Patient states can afford medications [facility] name([facility] : [facility] Does Patient have transportation to get home and to follow-up medical appointments when discharged from the hospital? : Yes Would patient like to participate in any Care Coordination programs (if applicable): : Not applicable Does the patient have electricity at home? : Yes Does the patient have running water in their house? : Yes Equipment in use: : Wheelchair Equipment in use: : Walker - Rolling Equipment in use: : Shower Chair Equipment in use: : Nebulizer Equipment in use: : Hospital Bed Equipment in use: : Home Oxygen with Nasal Cannula Equipment in use: : Bedside Commode Mental health screen: : No mental health history Resources / Services in place: : Private duty care Resources / Services in place: : Dialysis - home hemodialysis DCP Re-evaluation QUESTION: ANSWER Would patient like to participate in any Care Coordination programs (if applicable): : Not applicable PATIENT: JAMIE BELL ENCOUNTER: [id number] MEDICAL RECORD#: [id number] ADMISSION DATE: 02/26/2021 DISCHARGE DATE: ATTENDING MD: PASTORA PARSONS : AGE: 70 MARITAL STATUS: S DC PLAN ID: [id number] FACILITY: [facility] PRINTED ON: 03/14/21 0:13 CT All edits/amendments must be made on the electronic document DICTATION DATE: 03/14/2112 HOUSING COORDINATOR: SUSY 03/14/2112 RPT#: [id number] DC DATE: STATUS: ADM IN [facility] [address] [place] [address] END OF REPORT
--- NOTE | 2021-03-14 00:24 | MORECARE ---
CASE MANAGEMENT DISCHARGE SUMMARY PATIENT: JAMIE BELL UNIT: [id number] ADM DATE: 02/26/21 AGE: 70 : 48 SEX: F ROOM/BED: D.9643 AUTHOR: WILFRID,DOC PHYSICIAN: REFERRING PHYSICIAN: PASTORA SHORT DO DATE OF SERVICE: 03/14/21 Case Management Discharge Planning Summary COMMENTS ENTERED DATE: 03/14/21 0:08 CT COMMENT TYPE: Discharge Planning REVIEWER: Queenie Hester CM spoke with patient and she would like to go to inpatient rehab prior to discharge home. LULA completed for [facility] inpatient rehab. She does live alone and has a caregiver that comes in for a few hours a day to assist patient with adls and household need. She will have her daughter to transport her home upon discharge, CM will continue to follow and assist as needed with d/c planning / needs. Awaiting auth from insurance for rehab. DCP REVIEW SUMMARY ANTICIPATED D/C DATE: EXPECTED LOS : CASE STATUS: DCP Initiated INITIAL REVIEW: 02/26/2021 INITIAL REVIEWER: Queenie Hester FINAL DISCHARGE DISPOSITION: : FINAL REVIEWER: FINAL REVIEW DATE: DCP Focus Questions & Answers DCP Screen QUESTION: ANSWER High Risk Factors: : Hosp related to CHF, COPD, DM, End Stage Ds, CVA, CA DCP Evaluation QUESTION: ANSWER Patient's current cognitive status: : *Oriented to person, place, situation, time and present Patient's ability to cope with chronic illness : a. Adequate (0-3 ED visits in 6 mos., adequate financial resources, attends scheduled appts.) Patient gives permission to discuss discharge plans with: (name, relationship and number) : RANDA [phone], Family / Caregiver's ability to cope with chronic illness: : b. Minimal (occasionally not dependable to meet pt's. needs, can meet pt's. basic ADL's) Functional screen assessment: : Unable to manage ADLs without immediate ongoing assistance Physical Status: : Partial care dependence Does the patient have the ability to pay for or attain post discharge needs / services? : Yes Family / Caregiver's ability to cope with chronic illness: : a. Adequate (ability to meet patient's medical needs, ensures patient attends medical appts.) Partial Dependence, assistance required for: : Bathing Is there a likelihood that the patient will require additional services to return to the preadmission environment? : Yes Living Arrangements: : Home Alone with Support Baseline cognitive status: : *Oriented to person, place, situation, time and present Results of this evaluation have been discussed with: : Patient Facility / Agency name and contact information from Question 3 (if applicable): : [facility] Preadmission facility can/cannot provide post hospital level of care needs: : Can - at higher level of care than preadmission Medication Management: : Patient states can afford medications Pharm[facility] name(s): : [facility] Does Patient have transportation to get home and to follow-up medical appointments when discharged from the hospital? : Yes Would patient like to participate in any Care Coordination programs (if applicable): : Not applicable Does the patient have electricity at home? : Yes Does the patient have running water in their house? : Yes Equipment in use: : Wheelchair Equipment in use: : Walker - Rolling Equipment in use: : Shower Chair Equipment in use: : Nebulizer Equipment in use: : Hospital Bed Equipment in use: : Home Oxygen with Nasal Cannula Equipment in use: : Bedside Commode Mental health screen: : No mental health history Resources / Services in place: : Private duty care Resources / Services in place: : Dialysis - home hemodialysis DCP Re-evaluation QUESTION: ANSWER Would patient like to participate in any Care Coordination programs (if applicable): : Not applicable PATIENT: JAMIE BELL ENCOUNTER: [id number] MEDICAL RECORD#: [id number] ADMISSION DATE: 02/26/2021 DISCHARGE DATE: ATTENDING MD: PASTORA PARSONS : AGE: 70 MARITAL STATUS: S DC PLAN ID: [id number] FACILITY: [facility] PRINTED ON: 03/14/21 0:24 CT All edits/amendments must be made on the electronic document DICTATION DATE: 03/14/2122 FELT HOOKER: SUSY 03/14/2122 RPT#: [id number] DC DATE: STATUS: ADM IN [facility] [address] [place] [address] END OF REPORT
--- NOTE | 2021-03-14 03:41 | NUR ---
I have reviewed this patient and I concur with the Shift Assessment completed by the Licensed Practical Nurse today this shift.
[2021-03-14 04:00] VITALS: BP 154/62
[2021-03-14 05:32] LABS: ALBUMIN 2.5 g/dL (3.4-5.0); ANION GAP 11.9 mmol/L (8-16); BILIRUBIN - TOTAL 0.38 mg/dL (0.2-1.3); CALCIUM 9.5 mg/dL (8.5-10.1); CARBON DIOXIDE 29.2 mmol/L (21.0-32.0); CREATININE - SERUM 4.2 mg/dL (0.6-1.3); POTASSIUM - SERUM 4.1 mmol/L (3.5-5.1); PROTEIN - SERUM 6.3 g/dL (6.4-8.2)
[2021-03-14 06:47] LABS: BASOPHILS 0.2 % (0-2); EOSINOPHILS 2.3 % (0-7); HEMATOCRIT 28.9 % (36.0-48.0); HEMOGLOBIN 8.7 g/dL (12-16); IMMATURE GRANULOCYTES 0.2 % (0-5); LYMPHOCYTE ABS# 1.22 10x3/uL (1.18-3.74); LYMPHOCYTES 12.6 % (15-50); MCH 29.3 pg (26.0-34.0); MCHC 30.1 g/dL (31.0-37.0); MCV 97.3 fL (80.0-100.0); NEUTROPHIL ABS# 7.34 10x3/uL (1.56-6.13); NEUTROPHILS 75.7 % (40-80); PLATELET COUNT 344 10x3/uL (130-400); RBC 2.97 10x6/uL (4.00-5.40); RDW 13.5 % (11.5-14.5); WBC 9.7 10x3/uL (4.8-10.8)
--- NOTE | 2021-03-14 07:50 | NUR ---
Sitting up in bed, awake/alert/oriented, T/R self ad bal, cont of B/B with BSC per self ad bal, denies pain/other discomfort at this time, call light/phone/water within reach, no s/s of acute distress observed.
[2021-03-14 07:58] VITALS: BP 147/78
--- NOTE | 2021-03-14 09:42 | NUR ---
Off unit for dialysis
--- NOTE | 2021-03-14 13:03 | NUR ---
Back to unit from dialysis.
--- NOTE | 2021-03-14 16:54 | NUR ---
OT NOTE: PT COMPLETED SIDE ROLLING WITH MIN A. PT COMPLETED SIT TO STAND WITH CGA-MIN A. PT COMPLETED EOB SITTING WITH SBA. PT COMPLETED FACE AND HAND HYGIENE WITH SETUP. PT COMPLETED HAIR GROOMING WITH SETUP. [phone] THANK YOU,LUCIO MONTALVO
--- NOTE | 2021-03-14 19:30 | NUR ---
PT IN BED, AAO X 4, RESP EVEN AND UNLABORED, NO DISTRESS NOTED, CL IN REACH, SR UP X 2.
[2021-03-14 19:37] VITALS: BP 125/66
--- NOTE | 2021-03-15 04:42 | NUR ---
I have reviewed this patient and I concur with the Shift Assessment completed by the Licensed Practical Nurse today this shift.
[2021-03-15 05:54] LABS: BASOPHILS 0.3 % (0-2); EOSINOPHILS 3.5 % (0-7); HEMATOCRIT 26.7 % (36.0-48.0); HEMOGLOBIN 8.3 g/dL (12-16); IMMATURE GRANULOCYTES 0.3 % (0-5); LYMPHOCYTE ABS# 1.64 10x3/uL (1.18-3.74); LYMPHOCYTES 22.3 % (15-50); MCH 29.6 pg (26.0-34.0); MCHC 31.1 g/dL (31.0-37.0); MCV 95.4 fL (80.0-100.0); MEAN PLATELET VOLUME 10.1 fL (7.4-10.4); MONOCYTES 10.2 % (2-11); NEUTROPHIL ABS# 4.67 10x3/uL (1.56-6.13); NEUTROPHILS 63.4 % (40-80); PLATELET COUNT 328 10x3/uL (130-400); RDW 13.4 % (11.5-14.5); WBC 7.4 10x3/uL (4.8-10.8)
[2021-03-15 05:58] LABS: ALBUMIN 2.3 g/dL (3.4-5.0); ANION GAP 14.5 mmol/L (8-16); BILIRUBIN - TOTAL 0.39 mg/dL (0.2-1.3); CALCIUM 9.4 mg/dL (8.5-10.1); CARBON DIOXIDE 26.4 mmol/L (21.0-32.0); CREATININE - SERUM 3.8 mg/dL (0.6-1.3); PHOSPHOROUS 6.5 mg/dL (2.5-4.9); POTASSIUM - SERUM 3.9 mmol/L (3.5-5.1); PROTEIN - SERUM 6.5 g/dL (6.4-8.2)
--- NOTE | 2021-03-15 08:47 | NUR ---
PATIENT WAS DENIED REHAB BY [facility]. A P2P CAN BE DONE BY [phone] BY CALLING [phone]. I AM TALKING TO DR ALMAZAN THIS AM ABOUT DOING AN EXPEDITED APPEAL.
[2021-03-15 09:10] VITALS: BP 115/39
--- NOTE | 2021-03-15 09:49 | NUR ---
Pt resting in bed and denises any needs at this time. Assessment per flow sheet, call light in reach, bed in low position.
--- NOTE | 2021-03-15 11:50 | NUR ---
Pt has gone to HD, will continue to monitor.
--- NOTE | 2021-03-15 14:20 | NUR ---
OT NOTE: PT COMPLETED BED MOBILITY WITH CGA. PT COMPLETED EOB SITTING WITH SBA. PT COMPLETED SIT TO STAND WITH CGA-MIN A. PT COMPLETED FACE HYGIENE WITH SETUP. PT COMPLETED HAND HYGIENE WITH SETUP. [phone] THANK YOU,LUCIO MONTALVO
--- NOTE | 2021-03-15 14:31 | NUR ---
EXPEDITED PHYSICIAN APPEAL HAS BEEN INITIATED. WE ARE WAITING ON THE DETERMINATION FROM [employer] IN REGARDS TO THIS AT THIS TIME. I HAVE SPOKE WITH THE [facility] TEAM IN REGARDS TO THIS. AGAIN, THANK YOU FOR THE REFERRAL. ARNOLDO TAYLOR RN CLINICAL LIAISON, INPATIENT REHAB.
--- NOTE | 2021-03-15 19:30 | NUR ---
PT IN BED, EYES CLOSED, RESP EVEN AND UNLABORED, NO DISTRESS NOTED, CL IN REACH, SR UP X 2.
[2021-03-15 20:49] VITALS: BP 136/44
--- NOTE | 2021-03-16 03:19 | NUR ---
I have reviewed this patient and I concur with the Shift Assessment completed by the Licensed Practical Nurse today this shift.
[2021-03-16 04:05] VITALS: BP 134/78
[2021-03-16 06:23] LABS: BASOPHILS 0.6 % (0-2); EOSINOPHILS 2.9 % (0-7); HEMATOCRIT 29.1 % (36.0-48.0); HEMOGLOBIN 8.9 g/dL (12-16); IMMATURE GRANULOCYTES 0.3 % (0-5); LYMPHOCYTE ABS# 1.54 10x3/uL (1.18-3.74); LYMPHOCYTES 17.8 % (15-50); MCH 29.8 pg (26.0-34.0); MCHC 30.6 g/dL (31.0-37.0); MCV 97.3 fL (80.0-100.0); MONOCYTES 10.6 % (2-11); NEUTROPHIL ABS# 5.87 10x3/uL (1.56-6.13); NEUTROPHILS 67.8 % (40-80); PLATELET COUNT 347 10x3/uL (130-400); RBC 2.99 10x6/uL (4.00-5.40); RDW 13.7 % (11.5-14.5); WBC 8.7 10x3/uL (4.8-10.8)
[2021-03-16 06:47] LABS: ALBUMIN 2.5 g/dL (3.4-5.0); BILIRUBIN - TOTAL 0.48 mg/dL (0.2-1.3); CALCIUM 9.8 mg/dL (8.5-10.1); CARBON DIOXIDE 27.7 mmol/L (21.0-32.0); CREATININE - SERUM 4.2 mg/dL (0.6-1.3); PROTEIN - SERUM 6.7 g/dL (6.4-8.2)
[2021-03-16 06:48] LABS: POTASSIUM - SERUM 4.7 mmol/L (3.5-5.1)
[2021-03-16 07:49] VITALS: BP 158/56
[2021-03-16 15:46] VITALS: BP 122/42
[2021-03-16 20:30] VITALS: BP 106/47
[2021-03-17 00:30] VITALS: BP 114/49
[2021-03-17 04:30] VITALS: BP 112/52
[2021-03-17 06:48] LABS: ALBUMIN 2.4 g/dL (3.4-5.0); ANION GAP 13.5 mmol/L (8-16); BILIRUBIN - TOTAL 0.46 mg/dL (0.2-1.3); CALCIUM 9.9 mg/dL (8.5-10.1); CARBON DIOXIDE 26.8 mmol/L (21.0-32.0); CREATININE - SERUM 3.9 mg/dL (0.6-1.3); PHOSPHOROUS 6.2 mg/dL (2.5-4.9); POTASSIUM - SERUM 4.3 mmol/L (3.5-5.1); PROTEIN - SERUM 6.6 g/dL (6.4-8.2)
[2021-03-17 06:49] LABS: BASOPHILS 0.6 % (0-2); EOSINOPHILS 3.8 % (0-7); HEMOGLOBIN 8.9 g/dL (12-16); IMMATURE GRANULOCYTES 0.1 % (0-5); LYMPHOCYTE ABS# 1.82 10x3/uL (1.18-3.74); LYMPHOCYTES 22.8 % (15-50); MCHC 30.7 g/dL (31.0-37.0); MCV 97.6 fL (80.0-100.0); MEAN PLATELET VOLUME 9.8 fL (7.4-10.4); MONOCYTES 9.4 % (2-11); NEUTROPHIL ABS# 5.07 10x3/uL (1.56-6.13); NEUTROPHILS 63.3 % (40-80); PLATELET COUNT 294 10x3/uL (130-400); RBC 2.97 10x6/uL (4.00-5.40); RDW 13.7 % (11.5-14.5)
[2021-03-17 08:43] VITALS: BP 121/39
--- NOTE | 2021-03-17 11:25 | NUR ---
PATIENT WAS UP ON THE BSC HAVING A BOWEL MOVEMENT AND TELEMETRY PAGED THAT HER HEART RATE DROPPED TO THE 30S AND CAME BACK UP TO THE HIGH 40S. UPON INTERING ROOM PATIENT WAS NON RESPONSIVE. RAPID WAS CALLED BUT PATIENT CAME AROUND WITHIN SECONDS. BELIEVING SHE VAGELED DOWN HAVING A BOWEL MOVEMENT. PLACED IN BED AND VITAL SIGNS TAKEN.
[2021-03-17 12:02] VITALS: BP 127/51
--- NOTE | 2021-03-17 13:28 | NUR ---
REHAB FOLLOW UP: STILL NO DECISION RECEIVED IN REGARDS TO THE EXPEDITED APPEAL. THERE IS NO ANSWER AT [facility] TODAY, THE MACHINE INSTRUCTS YOU TO TRY THE WEBSITE. I WILL FOLLOW UP IN THE MORNING TO SEE IF THERE IS A DETERMINATION. PERHAPS SINCE IT WAS ON THURSDAY, THEY WON'T MAKE DETERMINATION UNTIL THURSDAY. ARNOLDO TAYLOR RN CLINICAL LIAISON, INPATIENT REHAB.
[2021-03-17 16:05] VITALS: BP 131/44; BP 99/60
[2021-03-17 20:00] VITALS: BP 131/54
[2021-03-18] VITALS: BP 142/58
[2021-03-18 04:00] VITALS: BP 156/48
--- NOTE | 2021-03-18 08:28 | NUR ---
PATIENT SITTING HIGH FOWLERS AAOX4 EATINGH BREAKFAST, NO S/S OF DISTRESS, RESP EVEN AND NON LABORED ON ROOM AIR, MEDICATIONS ADMINSITERED WITHOUT COMPLICSTIONS, ALL BLOOD PRESSURE MEDICATIONS HELD FOR DIALYSIS TODA, NO FURTHER NEEDS AT THIS TIME, ARI, BENP
[2021-03-18 08:38] LABS: BASOPHILS 0.3 % (0-2); EOSINOPHILS 2.7 % (0-7); HEMATOCRIT 27.7 % (36.0-48.0); HEMOGLOBIN 8.5 g/dL (12-16); IMMATURE GRANULOCYTES 0.3 % (0-5); LYMPHOCYTE ABS# 1.42 10x3/uL (1.18-3.74); LYMPHOCYTES 18.9 % (15-50); MCH 29.4 pg (26.0-34.0); MCHC 30.7 g/dL (31.0-37.0); MCV 95.8 fL (80.0-100.0); MEAN PLATELET VOLUME 9.6 fL (7.4-10.4); MONOCYTES 6.8 % (2-11); NEUTROPHIL ABS# 5.35 10x3/uL (1.56-6.13); PLATELET COUNT 324 10x3/uL (130-400); RBC 2.89 10x6/uL (4.00-5.40); RDW 13.6 % (11.5-14.5); WBC 7.5 10x3/uL (4.8-10.8)
[2021-03-18 08:44] VITALS: BP 133/53
[2021-03-18 09:03] LABS: ALBUMIN 2.7 g/dL (3.4-5.0); ANION GAP 13.6 mmol/L (8-16); BILIRUBIN - TOTAL 0.59 mg/dL (0.2-1.3); CALCIUM 9.5 mg/dL (8.5-10.1); CARBON DIOXIDE 28.7 mmol/L (21.0-32.0); CREATININE - SERUM 5.4 mg/dL (0.6-1.3); POTASSIUM - SERUM 4.3 mmol/L (3.5-5.1); PROTEIN - SERUM 6.4 g/dL (6.4-8.2)
--- NOTE | 2021-03-18 12:28 | NUR ---
ASSUMED CARE OF PT WHO IS CURRENTLY IN DIALYSIS.
--- NOTE | 2021-03-18 12:56 | NUR ---
PAIN MED TAKEN TO DIALYSIS ROOM FOR PT.
--- NOTE | 2021-03-18 14:28 | NUR ---
Nutrition Reassessment/Follow-up: Eating well. HD today. Diet: Renal ADA PO intake: 75-100% No new wt; last wt: 252# (03/09) Labs noted: Na 135, K+ 4.3, Glu 93, Alb 2.4, PO4 6.2 (03/17) Meds noted: Renvela, Dulcolax, Calcitriol, Lasix, Nephrovite, Miralax -Nutrition needs unchanged; no new wt available. -RD will follow up within 7 days if pt still admitted.
--- NOTE | 2021-03-18 14:40 | NUR ---
PT BACK FROM DIALYSIS ON BED.
--- NOTE | 2021-03-18 14:46 | MORECARE ---
CASE MANAGEMENT DISCHARGE SUMMARY PATIENT: JAMIE BELL UNIT: [id number] ADM DATE: 02/26/21 AGE: 70 : 48 SEX: F ROOM/BED: D.7788 AUTHOR: WILFRID,DOC PHYSICIAN: REFERRING PHYSICIAN: PASTORA SHORT DO DATE OF SERVICE: 03/18/21 Case Management Discharge Planning Summary COMMENTS ENTERED DATE: 03/18/21 14:43 CT COMMENT TYPE: Discharge Planning REVIEWER: Isabel Valdez CM spoke with Kelley in inpatient rehab and they do not have a determination yet on appeal on Thursday. ENTERED DATE: 03/14/21 0:08 CT COMMENT TYPE: Discharge Planning REVIEWER: Queenie Hester CM spoke with patient and she would like to go to inpatient rehab prior to discharge home. LULA completed for [facility] inpatient rehab. She does live alone and has a caregiver that comes in for a few hours a day to assist patient with adls and household need. She will have her daughter to transport her home upon discharge, CM will continue to follow and assist as needed with d/c planning / needs. Awaiting auth from insurance for rehab. DCP REVIEW SUMMARY ANTICIPATED D/C DATE: EXPECTED LOS : CASE STATUS: DCP Initiated INITIAL REVIEW: 02/26/2021 INITIAL REVIEWER: Queenie Hester FINAL DISCHARGE DISPOSITION: : FINAL REVIEWER: FINAL REVIEW DATE: DCP Focus Questions & Answers DCP Screen QUESTION: ANSWER High Risk Factors: : Hosp related to CHF, COPD, DM, End Stage Ds, CVA, CA DCP Evaluation QUESTION: ANSWER Patient's current cognitive status: : *Oriented to person, place, situation, time and present Patient's ability to cope with chronic illness : a. Adequate (0-3 ED visits in 6 mos., adequate financial resources, attends scheduled appts.) Patient gives permission to discuss discharge plans with: (name, relationship and number) : RANDA [phone], Family / Caregiver's ability to cope with chronic illness: : b. Minimal (occasionally not dependable to meet pt's. needs, can meet pt's. basic ADL's) Functional screen assessment: : Unable to manage ADLs without immediate ongoing assistance Physical Status: : Partial care dependence Does the patient have the ability to pay for or attain post discharge needs / services? : Yes Family / Caregiver's ability to cope with chronic illness: : a. Adequate (ability to meet patient's medical needs, ensures patient attends medical appts.) Partial Dependence, assistance required for: : Bathing Is there a likelihood that the patient will require additional services to return to the preadmission environment? : Yes Living Arrangements: : Home Alone with Support Baseline cognitive status: : *Oriented to person, place, situation, time and present Results of this evaluation have been discussed with: : Patient Facility / Agency name and contact information from Question 3 (if applicable): : [facility] Preadmission facility can/cannot provide post hospital level of care needs: : Can - at higher level of care than preadmission Medication Management: : Patient states can afford medications [facility] Does Patient have transportation to get home and to follow-up medical appointments when discharged from the hospital? : Yes Would patient like to participate in any Care Coordination programs (if applicable): : Not applicable Does the patient have electricity at home? : Yes Does the patient have running water in their house? : Yes Equipment in use: : Bedside Commode Equipment in use: : Home Oxygen with Nasal Cannula Equipment in use: : Hospital Bed Equipment in use: : Nebulizer Equipment in use: : Shower Chair Equipment in use: : Walker - Rolling Equipment in use: : Wheelchair Mental health screen: : No mental health history Resources / Services in place: : Dialysis - home hemodialysis Resources / Services in place: : Private duty care DCP Re-evaluation QUESTION: ANSWER Would patient like to participate in any Care Coordination programs (if applicable): : Not applicable PATIENT: JAMIE BELL ENCOUNTER: [id number] MEDICAL RECORD#: [id number] ADMISSION DATE: 02/26/2021 DISCHARGE DATE: ATTENDING MD: PASTORA PARSONS : AGE: 70 MARITAL STATUS: S DC PLAN ID: [id number] FACILITY: [facility] PRINTED ON: 03/18/21 14:46 CT All edits/amendments must be made on the electronic document DICTATION DATE: 03/18/211445 CONSULTING SYSTEMS ENGINEER: SUSY 03/18/211445 RPT#: [id number] DC DATE: STATUS: ADM IN [facility] [address] [place] [address] END OF REPORT
--- NOTE | 2021-03-18 15:25 | NUR ---
OT NOTE: PT COMPLETED SUPINE TO SIT WITH MOD A WHILE ADHERING TO STERNAL PRECAUTIONS. PT COMPLETED SIT TO STAND WITH CGA-MIN A. PT COMPLETED HAIR GROOMING WITH SETUP. PT 02 SATS DECREASED WITH STANDING. NURSING AWARE. [phone] LONNIE CACERES COTA
[2021-03-18 16:00] VITALS: BP 113/34
--- NOTE | 2021-03-18 16:24 | NUR ---
RECIEVED A CALL FROM LILY WITH [employer] @ 1600. SHE HAS REQUESTED THERAPY RECORDS AND PHYSICIAN NOTES FROM THE WEEKEND FOR THE PHYSICIAN DOING THE EXPEDIATED APPEAL. ALL REQUESTRED INFORMATION SENT. WILL CONTINUE TO WAIT ON DETERMINATION. SOON I HEAR SOMETHING I WILL RELAY IT TO [facility]. ARNOLDO TAYLOR RN CLINICAL LIAISON, INPATIENT REHAB.
--- NOTE | 2021-03-18 19:30 | NUR ---
PT IN BED, AAO X 4, RESP EVEN AND UNLABORED, NO DISTRESS NOTED, CL IN REACH, SR UP X 2.
[2021-03-18 20:00] VITALS: BP 110/36
[2021-03-19] VITALS: BP 131/43
--- NOTE | 2021-03-19 01:30 | NUR ---
I have reviewed this patient and I concur with the Shift Assessment completed by the Licensed Practical Nurse today this shift.
[2021-03-19 04:00] VITALS: BP 135/48
[2021-03-19 07:07] LABS: BASOPHILS 0.3 % (0-2); EOSINOPHILS 3.9 % (0-7); HEMATOCRIT 28.1 % (36.0-48.0); HEMOGLOBIN 8.8 g/dL (12-16); IMMATURE GRANULOCYTES 0.3 % (0-5); LYMPHOCYTE ABS# 1.26 10x3/uL (1.18-3.74); LYMPHOCYTES 18.1 % (15-50); MCH 29.8 pg (26.0-34.0); MCHC 31.3 g/dL (31.0-37.0); MCV 95.3 fL (80.0-100.0); MEAN PLATELET VOLUME 9.7 fL (7.4-10.4); MONOCYTES 10.1 % (2-11); NEUTROPHIL ABS# 4.69 10x3/uL (1.56-6.13); NEUTROPHILS 67.3 % (40-80); PLATELET COUNT 317 10x3/uL (130-400); RBC 2.95 10x6/uL (4.00-5.40); RDW 13.7 % (11.5-14.5)
[2021-03-19 07:22] LABS: ALBUMIN 2.7 g/dL (3.4-5.0); ANION GAP 14.5 mmol/L (8-16); BILIRUBIN - TOTAL 0.54 mg/dL (0.2-1.3); CALCIUM 9.8 mg/dL (8.5-10.1); PHOSPHOROUS 7.7 mg/dL (2.5-4.9); POTASSIUM - SERUM 4.5 mmol/L (3.5-5.1); PROTEIN - SERUM 6.9 g/dL (6.4-8.2)
[2021-03-19 08:10] VITALS: BP 150/49
--- NOTE | 2021-03-19 09:55 | NUR ---
PT BROUGHT DOWN TO DIALYSIS FOR TX. WHEN SHE ARRIVES SHE'S REFUSING TX TODAY SHE IS TIRED AND HER ARM SORE. CALLED UP TO MED 2 TO SPEAK WITH PRIMARY NURSE TO INFORM HER.
--- NOTE | 2021-03-19 10:00 | NUR ---
PATIENT TAKEN DOWN TO DIALYSIS
--- NOTE | 2021-03-19 10:14 | NUR ---
PATIENT BROUGHT BACK TO ROOM. SHE DID NOT WANT TO DO DIALYSIS TODAY.
--- NOTE | 2021-03-19 15:07 | NUR ---
OT NOTE: PT COMPLETED SUPINE TO SIT WITH WITH MIN-MOD A. PT COMPLETED EOB SITTING WITH SBA-CGA. PT REQUIRED MAX A FOR POSITIONING. PT COMPLETED FACE HYGIENE WITH SETUP. PT COMPLETED HAIR GROOMING WITH SETUP AT EOB. [phone] LONNIE CACERES COTA
[2021-03-19 16:00] VITALS: BP 158/55
--- NOTE | 2021-03-19 19:30 | NUR ---
PT IN BED, EYES CLOSED, RESP EVEN AND UNLABORED, NO DISTRESS NOTED, CL IN REACH SR U P X 2.
[2021-03-19 20:00] VITALS: BP 140/49
[2021-03-20] VITALS (7 sets, daily range): BP systolic 118–154; BP diastolic 38–74
[2021-03-20 06:11] LABS: BASOPHILS 0.4 % (0-2); EOSINOPHILS 3.7 % (0-7); HEMATOCRIT 27.4 % (36.0-48.0); HEMOGLOBIN 8.6 g/dL (12-16); IMMATURE GRANULOCYTES 0.4 % (0-5); LYMPHOCYTE ABS# 1.35 10x3/uL (1.18-3.74); LYMPHOCYTES 19.4 % (15-50); MCH 29.8 pg (26.0-34.0); MCHC 31.4 g/dL (31.0-37.0); MCV 94.8 fL (80.0-100.0); MEAN PLATELET VOLUME 9.8 fL (7.4-10.4); MONOCYTES 10.2 % (2-11); NEUTROPHIL ABS# 4.59 10x3/uL (1.56-6.13); NEUTROPHILS 65.9 % (40-80); PLATELET COUNT 302 10x3/uL (130-400); RBC 2.89 10x6/uL (4.00-5.40); RDW 13.8 % (11.5-14.5)
[2021-03-20 06:31] LABS: ALBUMIN 2.6 g/dL (3.4-5.0); ANION GAP 17.9 mmol/L (8-16); BILIRUBIN - TOTAL 0.57 mg/dL (0.2-1.3); CALCIUM 9.7 mg/dL (8.5-10.1); CARBON DIOXIDE 23.9 mmol/L (21.0-32.0); CREATININE - SERUM 6.1 mg/dL (0.6-1.3); POTASSIUM - SERUM 4.8 mmol/L (3.5-5.1); PROTEIN - SERUM 6.3 g/dL (6.4-8.2)
--- NOTE | 2021-03-20 09:30 | NUR ---
NURSE GOES INTO ROOM AFTER AIDE COMES TO GET HER. PATIENT WAS ON BSC AND HAD A VAGAL RESPONSE, FROM WHAT APPEARS. AFTER MULTIPLE ATTEMPTS TO TALK TO PATIENT AND GET HER TO RESPOND, PATIENT FINALLY 'WAKES UP' AND TALKS BACK TO PATIENT. PATIENT VOMITTED A LARGE AMOUNT AND HAD A LARGE BM. VITALS CHECKED. DR GARCIA WAS NEXT TO ROOM PATIENT WAS HAVING EPISODE. HIS INSTRUCTIONS WERE TO GET PATIENT BACK INTO BED. PT WAS ALSO IN ROOM HELPING PATIENT GET BACK INTO BED.
--- NOTE | 2021-03-20 09:54 | NUR ---
NURSE TALKS TO OSCAR AFTER PT'S EPISODE. NURSE REPORTS PATIENT'S EPISODE , AND ASKS IF PATIENT SHOULD STILL GO TO DIALYSIS. ENGRAVER PICTURE TELLS NURSE TO GO AHEAD AND SEND PATIENT.
--- NOTE | 2021-03-20 10:02 | NUR ---
PATIENT GONE TO DIALYSIS
--- NOTE | 2021-03-20 14:05 | NUR ---
RECEIVED CALL FROM JEFFERSON AT [facility] ON 03/19/2021. EXPEDITED APPEAL WAS DENIED. APPEAL HAS NOW GONE TO [facility] [facility]. COULD NOT GIVE AN EXPECTED DECISION DATE. WE ARE CONTINUING TO FOLLOW. NIMA PIMENTEL LPN, CLINICAL LIAISON
--- NOTE | 2021-03-20 14:27 | NUR ---
OT NOTE: UPON ENTERING PT WAS IN EXTENSION ON BSC WITH SALES ATTENDANT. NURSING ALERTED. NURSING AND THERAPY ASSISTED PT. PT REQUIRED TOTAL A FOR LB HYGIENE TASKS. PT REQUIRED MAX-TOTAL A WITH UB HYGIENE SECONDARY TO EMESIS. PT EVENTUALLY BECOME MORE ALERT AND REQUIRED MOD A FOR BSC TO BED TSF. PT ABLE TO ANSWER NURSING QUESTIONS AND VITALS WERE TAKEN SEVERAL TIMES BY NURSING STAFF. PT REQUIRED MAX A FOR POSITIONING IN BED. PT STATED SHE HAS THESE EPISODES FREQUENTLY WHEN ON BSC. NURSING AWARE. [phone] LONNIE CACERES COTA
--- NOTE | 2021-03-20 19:30 | NUR ---
PT IN BED, AAO X 4, RESP EVEN AND UNLABORED, NO DISTRESS NOTED, CL IN REACH, SR UP X 2.
--- NOTE | 2021-03-21 04:50 | NUR ---
I have reviewed this patient and I concur with the Shift Assessment completed by the Licensed Practical Nurse today this shift.
[2021-03-21 05:09] VITALS: BP 104/34
[2021-03-21 06:24] LABS: BASOPHILS 0.3 % (0-2); EOSINOPHILS 3.4 % (0-7); HEMOGLOBIN 8.8 g/dL (12-16); IMMATURE GRANULOCYTES 0.3 % (0-5); LYMPHOCYTE ABS# 1.37 10x3/uL (1.18-3.74); LYMPHOCYTES 22.1 % (15-50); MCH 29.7 pg (26.0-34.0); MCHC 31.4 g/dL (31.0-37.0); MCV 94.6 fL (80.0-100.0); MEAN PLATELET VOLUME 9.7 fL (7.4-10.4); MONOCYTES 9.5 % (2-11); NEUTROPHIL ABS# 3.99 10x3/uL (1.56-6.13); NEUTROPHILS 64.4 % (40-80); PLATELET COUNT 284 10x3/uL (130-400); RBC 2.96 10x6/uL (4.00-5.40); RDW 13.7 % (11.5-14.5); WBC 6.2 10x3/uL (4.8-10.8)
[2021-03-21 06:36] LABS: ALBUMIN 2.9 g/dL (3.4-5.0); ANION GAP 14.8 mmol/L (8-16); BILIRUBIN - TOTAL 0.52 mg/dL (0.2-1.3); CALCIUM 9.8 mg/dL (8.5-10.1); CARBON DIOXIDE 28.6 mmol/L (21.0-32.0); CREATININE - SERUM 4.9 mg/dL (0.6-1.3); POTASSIUM - SERUM 4.4 mmol/L (3.5-5.1); PROTEIN - SERUM 6.6 g/dL (6.4-8.2)
[2021-03-21 08:17] VITALS: BP 116/48
[2021-03-21 11:36] VITALS: BP 108/33
--- NOTE | 2021-03-21 16:31 | NUR ---
OT NOTE: PT COMPLETED SUPINE TO SIT WITH MIN A. PT COMPLETED EOB SITTING BALANCE WITH SBA. PT COMPLETED BED MOBILITY WITH CGA-MIN A. PT COMPLETED HAIR GROOMING WITH MIN A SECONDARY TO DECREASED AROM IN RUE. PT COMPLETED FACE HYGIENE AT EOB WITH SETUP. [phone] LONNIE CACERES COTA
[2021-03-21 19:31] VITALS: BP 107/40
[2021-03-22 00:41] VITALS: BP 121/44
--- NOTE | 2021-03-22 05:18 | NUR ---
I have reviewed this patient and I concur with the Shift Assessment completed by the Licensed Practical Nurse today this shift.
[2021-03-22 05:44] VITALS: BP 141/48
[2021-03-22 06:42] LABS: BASOPHILS 0.2 % (0-2); EOSINOPHILS 3.5 % (0-7); HEMATOCRIT 28.3 % (36.0-48.0); HEMOGLOBIN 8.7 g/dL (12-16); IMMATURE GRANULOCYTES 0.2 % (0-5); LYMPHOCYTE ABS# 1.42 10x3/uL (1.18-3.74); LYMPHOCYTES 25.1 % (15-50); MCH 29.6 pg (26.0-34.0); MCHC 30.7 g/dL (31.0-37.0); MCV 96.3 fL (80.0-100.0); MEAN PLATELET VOLUME 9.9 fL (7.4-10.4); MONOCYTES 11.7 % (2-11); NEUTROPHIL ABS# 3.36 10x3/uL (1.56-6.13); NEUTROPHILS 59.3 % (40-80); PLATELET COUNT 286 10x3/uL (130-400); RBC 2.94 10x6/uL (4.00-5.40); WBC 5.7 10x3/uL (4.8-10.8)
--- NOTE | 2021-03-22 07:00 | NUR ---
Lying in bed, awake/alert/oriented, T/R self ad bal, cont of B/B with BRPs with assist ad bal, c/o aching back rated 7/10, medicated as ordered (see MAR) call light/phone/water within reach, no s/s of acute distress observed.
[2021-03-22 07:54] LABS: ALBUMIN 2.6 g/dL (3.4-5.0); ANION GAP 15.3 mmol/L (8-16); BILIRUBIN - TOTAL 0.43 mg/dL (0.2-1.3); CALCIUM 9.4 mg/dL (8.5-10.1); CARBON DIOXIDE 28.1 mmol/L (21.0-32.0); CREATININE - SERUM 4.1 mg/dL (0.6-1.3); PHOSPHOROUS 7.2 mg/dL (2.5-4.9); POTASSIUM - SERUM 4.4 mmol/L (3.5-5.1); PROTEIN - SERUM 6.7 g/dL (6.4-8.2)
[2021-03-22 08:51] VITALS: BP 149/68
--- NOTE | 2021-03-22 09:30 | NUR ---
Off unit for dialysis in stable condition via w/c accompanied by hospital staff.
--- NOTE | 2021-03-22 12:45 | NUR ---
OT NOTE: PT COMPLETED SUPINE TO SIT WITH MIN A. PT COMPLETED EOB SITTING WITH SBA. PT COMPLETED SIT TO STAND WITH CGA. PT REQUIRED MOD A FOR TERRY/DOFF OF BRIEF. PT REQUIRED MOD A FOR LB HYGIENE. [phone] LONNIE CACERES COTA
[2021-03-22 15:51] VITALS: BP 148/50
[2021-03-22 20:19] VITALS: BP 115/40
[2021-03-23 05:47] VITALS: BP 149/50
--- NOTE | 2021-03-23 07:00 | NUR ---
Lying in bed, awake/alert/oriented, T/R self ad bal, cont of B/B with use of bedpan/BSC with assist ad bal, denies pain/other discomfort at this time, call light/phone/water within reach, no s/s of acute distress observed.
[2021-03-23 08:26] VITALS: BP 160/62
[2021-03-23 12:07] LABS: BASOPHILS 0.5 % (0-2); EOSINOPHILS 3.5 % (0-7); HEMATOCRIT 24.5 % (36.0-48.0); HEMOGLOBIN 7.7 g/dL (12-16); IMMATURE GRANULOCYTES 0.2 % (0-5); LYMPHOCYTE ABS# 1.34 10x3/uL (1.18-3.74); LYMPHOCYTES 23.3 % (15-50); MCHC 31.4 g/dL (31.0-37.0); MCV 95.3 fL (80.0-100.0); MEAN PLATELET VOLUME 9.8 fL (7.4-10.4); MONOCYTES 9.9 % (2-11); NEUTROPHIL ABS# 3.59 10x3/uL (1.56-6.13); NEUTROPHILS 62.6 % (40-80); PLATELET COUNT 232 10x3/uL (130-400); RBC 2.57 10x6/uL (4.00-5.40); RDW 13.9 % (11.5-14.5); WBC 5.7 10x3/uL (4.8-10.8)
[2021-03-23 12:28] LABS: ALBUMIN 2.4 g/dL (3.4-5.0); ANION GAP 13.7 mmol/L (8-16); BILIRUBIN - TOTAL 0.42 mg/dL (0.2-1.3); CALCIUM 9.1 mg/dL (8.5-10.1); CARBON DIOXIDE 27.5 mmol/L (21.0-32.0); CREATININE - SERUM 4.4 mg/dL (0.6-1.3); POTASSIUM - SERUM 4.2 mmol/L (3.5-5.1); PROTEIN - SERUM 6.2 g/dL (6.4-8.2)
--- NOTE | 2021-03-23 12:30 | NUR ---
Off unit for dialysis via bed in stable condition accompanied by hospital staff, no s/s of acute distress observed.
--- NOTE | 2021-03-23 14:25 | NUR ---
Returned to unit via bed in stable condition accompanied by hospital staff, call light/phone/water within reach, no s/s of acute distress observed.
--- NOTE | 2021-03-23 19:00 | NUR ---
REPORT RECEIVED AND CARE OF PT ASSUMED. PT LYING IN LOW CHRISTIE'S POSITION WATCHING TV. IV TO LEFT FA SALINE LOCKED. TELEMETRY IN PLACE AND READING SR AT THIS ASSESSMENT. WILL MONITOR FOR NEEDS.
--- NOTE | 2021-03-23 19:30 | NUR ---
PT UP IN CHAIR AT THIS TIME. WILL CONTINUE TO MONITOR CLOSELY
[2021-03-23 21:01] VITALS: BP 143/65
--- NOTE | 2021-03-23 21:27 | NUR ---
HS MEDICATIONS GIVEN. WILL CONTINUE TO MONITOR FOR NEEDS.
--- NOTE | 2021-03-23 21:45 | NUR ---
ASSISTED PT BACK TO BED. REPLACED ALL TELEMETRY PADS.
--- NOTE | 2021-03-23 22:59 | NUR ---
GAVE ICE CREAM FOR SNACK PER REQUEST. WILL CONTINUE TO MONITOR FOR NEEDS.
[2021-03-24 06:06] LABS: BASOPHILS 0.3 % (0-2); EOSINOPHILS 4.2 % (0-7); HEMATOCRIT 24.7 % (36.0-48.0); HEMOGLOBIN 7.7 g/dL (12-16); IMMATURE GRANULOCYTES 0.2 % (0-5); LYMPHOCYTE ABS# 1.64 10x3/uL (1.18-3.74); LYMPHOCYTES 26.4 % (15-50); MCH 29.7 pg (26.0-34.0); MCHC 31.2 g/dL (31.0-37.0); MCV 95.4 fL (80.0-100.0); MEAN PLATELET VOLUME 9.5 fL (7.4-10.4); MONOCYTES 8.7 % (2-11); NEUTROPHIL ABS# 3.74 10x3/uL (1.56-6.13); NEUTROPHILS 60.2 % (40-80); PLATELET COUNT 248 10x3/uL (130-400); RBC 2.59 10x6/uL (4.00-5.40); RDW 13.8 % (11.5-14.5); WBC 6.2 10x3/uL (4.8-10.8)
[2021-03-24 06:42] LABS: ALBUMIN 2.5 g/dL (3.4-5.0); ANION GAP 13.3 mmol/L (8-16); BILIRUBIN - TOTAL 0.42 mg/dL (0.2-1.3); CALCIUM 9.5 mg/dL (8.5-10.1); CARBON DIOXIDE 28.2 mmol/L (21.0-32.0); POTASSIUM - SERUM 4.5 mmol/L (3.5-5.1); PROTEIN - SERUM 6.2 g/dL (6.4-8.2)
--- NOTE | 2021-03-24 07:20 | NUR ---
RECIEVE REPORT. RESTING IN BED WITH EYES CLOSED. NO SIGNS OF DISTRESS. CONTINUE PLAN OF CARE AND SAFETY PRECAUTIONS.
[2021-03-24 08:27] VITALS: BP 135/49
[2021-03-24 12:10] VITALS: BP 116/43
[2021-03-24 20:00] VITALS: BP 122/30
--- NOTE | 2021-03-24 20:00 | NUR ---
INITIAL ROUNDS AND ASSESSMENT COMPLETED. PT RESTING IN BED. CALL LIGHT IN REACH. SEE ASSESSMENT.
--- NOTE | 2021-03-24 20:51 | NUR ---
BEDTIME MEDS GIVEN. PT WATCHING TV. CALL LIGHT IN REACH.
[2021-03-25 05:58] VITALS: BP 107/35
--- NOTE | 2021-03-25 07:20 | NUR ---
RECIEVE REPORT. ALERT AND ORIENTED X4. SITTING UP IN BED WATCHING TV. DENIES ANY NEEDS. CONTINUE PLAN OF CARE AND SAFETY PRECAUTIONS.
--- NOTE | 2021-03-25 11:15 | NUR ---
TAKEN TO DIALYSIS VIA BED.
[2021-03-25 12:08] LABS: BASOPHILS 0.5 % (0-2); EOSINOPHILS 4.6 % (0-7); HEMATOCRIT 23.1 % (36.0-48.0); LYMPHOCYTE ABS# 1.35 10x3/uL (1.18-3.74); LYMPHOCYTES 21.2 % (15-50); MCHC 31.6 g/dL (31.0-37.0); MCV 95.1 fL (80.0-100.0); MEAN PLATELET VOLUME 9.9 fL (7.4-10.4); NEUTROPHIL ABS# 4.12 10x3/uL (1.56-6.13); NEUTROPHILS 64.7 % (40-80); PLATELET COUNT 236 10x3/uL (130-400); RBC 2.43 10x6/uL (4.00-5.40); RDW 13.9 % (11.5-14.5); WBC 6.4 10x3/uL (4.8-10.8)
[2021-03-25 12:10] LABS: HEMOGLOBIN 7.3 g/dL (12-16)
[2021-03-25 12:22] LABS: ALBUMIN 2.6 g/dL (3.4-5.0); ANION GAP 15.3 mmol/L (8-16); BILIRUBIN - TOTAL 0.56 mg/dL (0.2-1.3); CALCIUM 9.3 mg/dL (8.5-10.1); CARBON DIOXIDE 24.6 mmol/L (21.0-32.0); CREATININE - SERUM 5.3 mg/dL (0.6-1.3); POTASSIUM - SERUM 4.9 mmol/L (3.5-5.1); PROTEIN - SERUM 6.2 g/dL (6.4-8.2)
--- NOTE | 2021-03-25 13:48 | NUR ---
Nutrition Reassessment/Follow-up: Overall good PO intake. HD today. PO4 binders increased. Awaiting placement. Diet: Renal ADA PO intake: 83% avg x 3 meals (03/24) No new wt; last wt: 252# (03/09) Labs noted: K+ 4.9, Alb 2.6 Meds noted: Renvela, Nephrovite, Lactulose, Miralax, Calcitriol, Lasix -Nutrition needs unchanged; no new wt available. -Need new wt. -RD will follow up within 7 days if pt still admitted.
--- NOTE | 2021-03-25 15:41 | MORECARE ---
CASE MANAGEMENT DISCHARGE SUMMARY PATIENT: JAMIE BELL UNIT: [id number] ADM DATE: 02/26/21 AGE: 70 : 48 SEX: F ROOM/BED: D.2265 AUTHOR: WILFRID,DOC PHYSICIAN: REFERRING PHYSICIAN: PASTORA SHORT DO DATE OF SERVICE: 03/25/21 Case Management Discharge Planning Summary COMMENTS ENTERED DATE: 03/25/21 15:35 CT COMMENT TYPE: Discharge Planning REVIEWER: Josette Yang Faxed clinical documentation to [facility] ([phone]). Awaiting determination of acceptance. ENTERED DATE: 03/18/21 14:43 CT COMMENT TYPE: Discharge Planning REVIEWER: Isabel Valdez CM spoke with Kelley in inpatient rehab and they do not have a determination yet on appeal on Thursday. ENTERED DATE: 03/14/21 0:08 CT COMMENT TYPE: Discharge Planning REVIEWER: Queenie Hester CM spoke with patient and she would like to go to inpatient rehab prior to discharge home. LULA completed for [facility] inpatient rehab. She does live alone and has a caregiver that comes in for a few hours a day to assist patient with adls and household need. She will have her daughter to transport her home upon discharge, CM will continue to follow and assist as needed with d/c planning / needs. Awaiting auth from insurance for rehab. DCP REVIEW SUMMARY ANTICIPATED D/C DATE: EXPECTED LOS : CASE STATUS: DCP Initiated INITIAL REVIEW: 02/26/2021 INITIAL REVIEWER: Queenie Hester FINAL DISCHARGE DISPOSITION: : FINAL REVIEWER: FINAL REVIEW DATE: DCP Focus Questions & Answers DCP Screen QUESTION: ANSWER High Risk Factors: : Hosp related to CHF, COPD, DM, End Stage Ds, CVA, CA DCP Evaluation QUESTION: ANSWER Patient's current cognitive status: : *Oriented to person, place, situation, time and present Patient's ability to cope with chronic illness : a. Adequate (0-3 ED visits in 6 mos., adequate financial resources, attends scheduled appts.) Patient gives permission to discuss discharge plans with: (name, relationship and number) : RANDA [phone], Family / Caregiver's ability to cope with chronic illness: : b. Minimal (occasionally not dependable to meet pt's. needs, can meet pt's. basic ADL's) Does the patient have the ability to pay for or attain post discharge needs / services? : Yes Functional screen assessment: : Unable to manage ADLs without immediate ongoing assistance Family / Caregiver's ability to cope with chronic illness: : a. Adequate (ability to meet patient's medical needs, ensures patient attends medical appts.) Physical Status: : Partial care dependence Is there a likelihood that the patient will require additional services to return to the preadmission environment? : Yes Living Arrangements: : Home Alone with Support Partial Dependence, assistance required for: : Bathing Results of this evaluation have been discussed with: : Patient Baseline cognitive status: : *Oriented to person, place, situation, time and present Preadmission facility can/cannot provide post hospital level of care needs: : Can - at higher level of care than preadmission Facility / Agency name and contact information from Question 3 (if applicable): : [facility] Medication Management: : Patient states can afford medications [facility] name(s[facility] Does Patient have transportation to get home and to follow-up medical appointments when discharged from the hospital? : Yes Would patient like to participate in any Care Coordination programs (if applicable): : Not applicable Does the patient have electricity at home? : Yes Does the patient have running water in their house? : Yes Equipment in use: : Bedside Commode Equipment in use: : Home Oxygen with Nasal Cannula Equipment in use: : Hospital Bed Equipment in use: : Nebulizer Equipment in use: : Shower Chair Equipment in use: : Walker - Rolling Equipment in use: : Wheelchair Mental health screen: : No mental health history Resources / Services in place: : Dialysis - home hemodialysis Resources / Services in place: : Private duty care DCP Re-evaluation QUESTION: ANSWER Would patient like to participate in any Care Coordination programs (if applicable): : Not applicable PATIENT: JAMIE BELL ENCOUNTER: [id number] MEDICAL RECORD#: [id number] ADMISSION DATE: 02/26/2021 DISCHARGE DATE: ATTENDING MD: PASTORA PARSONS : AGE: 70 MARITAL STATUS: S DC PLAN ID: [id number] FACILITY: [facility] PRINTED ON: 03/25/21 15:41 CT All edits/amendments must be made on the electronic document DICTATION DATE: 03/25/211540 FUNDRAISING CONSULTANT: SUSY 03/25/211540 RPT#: [id number] DC DATE: STATUS: ADM IN [facility] [address] [place] [address] END OF REPORT
--- NOTE | 2021-03-25 15:55 | NUR ---
OT NOTE: PT COMPLETED SUPINE TO SIT WITH CGA-MIN A. PT COMPLETED SIT TO STAND WITH SBA. PT COMPLETED SIDE STEPS WITH SBA-CGA. PT COMPLETED EOB SITTING WITH SBA. PT COMPLETED FACE HYGIENE WITH SETUP. PT REQUIRED MAX A TO TERRY SOCKS. [phone] THANK YOU,LUCIO MONTALVO
[2021-03-25 22:25] VITALS: BP 136/47
[2021-03-26 13:21] LABS: ALBUMIN 2.6 g/dL (3.4-5.0); ANION GAP 12.7 mmol/L (8-16); BILIRUBIN - TOTAL 0.39 mg/dL (0.2-1.3); CALCIUM 9.2 mg/dL (8.5-10.1); CARBON DIOXIDE 28.8 mmol/L (21.0-32.0); CREATININE - SERUM 4.6 mg/dL (0.6-1.3); POTASSIUM - SERUM 4.5 mmol/L (3.5-5.1); PROTEIN - SERUM 6.6 g/dL (6.4-8.2)
--- NOTE | 2021-03-26 19:05 | NUR ---
OT NOTE: PERFORMED BED MOB WITH MIN ASSIST; SIT TO STAND WITH WALKER AND MIN ASSIST; SIMPLE GROOMING TASKS WITH SET UP.. D/W PT ABOUT PLOF. PT REPORTS THAT SHE LIVES ALONE BUT DTR LIVES ON ONE SIDE AND G SON LIVES ON THE OTHER. SHE REPORTS THAT SHE WAS ABLE TO TRANSFER FROM BED TO POWER CHAIR AND POWER CHAIR TO TOILET WITHOUT ASSIST. REPORTS THAT SHE REQUIRED ASSIST WITH BATHING(AND FAMILY WAS AVAILABLE)..ALSO REPORTS THAT HER DTR DID GROCERY SHOPPING AND MEAL PREP. ENCOURAGED PT TO HAVE NURSING ASSIST WITH TRANSFERS FROM BED TO BS COMMODE. PT APPEARS TO BE CLOSE TO PLOF. PT TRANSFERS BED TO CHAIR AND CHAIR TO BED WITH WALKER AND MIN ASSIST. CYN BOO, OTR/L [phone]
[2021-03-26 21:45] VITALS: BP 128/44
[2021-03-27 01:34] VITALS: BP 110/40
[2021-03-27 05:18] VITALS: BP 137/55
--- NOTE | 2021-03-27 07:00 | NUR ---
PT LYING IN BED. RESP EVEN AND UNLABORED. AAOX4. DENIES NEEDS AT THIS TIME. CLIR. BED IN LOWEST POSITION. SIDE RAILS X2
[2021-03-27 11:00] VITALS: BP 144/47
--- NOTE | 2021-03-27 11:37 | NUR ---
PT'S BELONGINGS SEALED AND SENT TO [facility]
--- NOTE | 2021-03-27 12:35 | NUR ---
PT LEFT UNIT FOR DIALYSIS ACCOMPANIED BY [facility]
[2021-03-27 13:17] LABS: BASOPHILS 0.5 % (0-2); EOSINOPHILS 4.1 % (0-7); HEMATOCRIT 31.4 % (36.0-48.0); HEMOGLOBIN 9.9 g/dL (12-16); IMMATURE GRANULOCYTES 0.2 % (0-5); LYMPHOCYTE ABS# 1.32 10x3/uL (1.18-3.74); LYMPHOCYTES 20.7 % (15-50); MCH 29.4 pg (26.0-34.0); MCHC 31.5 g/dL (31.0-37.0); MCV 93.2 fL (80.0-100.0); MONOCYTES 8.3 % (2-11); NEUTROPHIL ABS# 4.22 10x3/uL (1.56-6.13); NEUTROPHILS 66.2 % (40-80); PLATELET COUNT 243 10x3/uL (130-400); RBC 3.37 10x6/uL (4.00-5.40); RDW 16.5 % (11.5-14.5); WBC 6.4 10x3/uL (4.8-10.8)
[2021-03-27 13:29] LABS: ALBUMIN 2.7 g/dL (3.4-5.0); ANION GAP 10.8 mmol/L (8-16); BILIRUBIN - TOTAL 0.48 mg/dL (0.2-1.3); CALCIUM 9.7 mg/dL (8.5-10.1); CARBON DIOXIDE 31.1 mmol/L (21.0-32.0); CREATININE - SERUM 4.3 mg/dL (0.6-1.3); MAGNESIUM - SERUM 2.1 mg/dL (1.8-2.4); POTASSIUM - SERUM 3.9 mmol/L (3.5-5.1); PROTEIN - SERUM 6.7 g/dL (6.4-8.2)
--- NOTE | 2021-03-27 15:30 | NUR ---
PT RETURNED TO UNIT FROM DIALYSIS
--- NOTE | 2021-03-27 15:41 | NUR ---
I have reviewed this patient and I concur with the Shift Assessment completed by the Licensed Practical Nurse today this shift.
--- NOTE | 2021-03-27 16:31 | NUR ---
OT NOTE: PT COMPLETED SUPINE TO SIT WITH MIN A. PT COMPLETED EOB SITTING WITH SPV. PT COMPLETED SIT TO STAND WITH CGA. PT COMPLETED SIDE STEPS WITH CGA. PT COMPLETED FACE HYGIENE WITH SETUP AT EOB. PT COMPLETED HAIR GROOMING WITH SETUP AT EOB. PT ATTEMPTED TO TERRY SOCKS. PT REQUIRED MAX A FOR DONNING SOCKS. [phone] LONNIE CACERES COTA
[2021-03-27 18:43] LABS: SARS-CoV-2 ANTIGEN NEGATIVE- SARS-COV-2 (NEGATIVE)
[2021-03-27 21:29] VITALS: BP 134/47
[2021-03-28 01:44] VITALS: BP 138/51
[2021-03-28 05:35] VITALS: BP 121/45
--- NOTE | 2021-03-28 07:20 | NUR ---
Lying in bed, awake/alert/oriented, T/R self ad bal, cont of B/B with BSC with assist ad bal, denies pain/other discomfort at this time, call light/phone/waster within reach, no s/s of acute distress observed.
[2021-03-28 08:04] VITALS: BP 144/65
[2021-03-28 12:55] LABS: ALBUMIN 2.6 g/dL (3.4-5.0); ANION GAP 11.4 mmol/L (8-16); BILIRUBIN - TOTAL 0.48 mg/dL (0.2-1.3); CALCIUM 9.6 mg/dL (8.5-10.1); CREATININE - SERUM 4.3 mg/dL (0.6-1.3); MAGNESIUM - SERUM 2.1 mg/dL (1.8-2.4); POTASSIUM - SERUM 4.4 mmol/L (3.5-5.1); PROTEIN - SERUM 6.8 g/dL (6.4-8.2)
[2021-03-28 13:14] LABS: BASOPHILS 0.4 % (0-2); EOSINOPHILS 4.9 % (0-7); HEMATOCRIT 31.5 % (36.0-48.0); HEMOGLOBIN 9.9 g/dL (12-16); IMMATURE GRANULOCYTES 0.4 % (0-5); LYMPHOCYTE ABS# 1.18 10x3/uL (1.18-3.74); LYMPHOCYTES 20.8 % (15-50); MCH 29.4 pg (26.0-34.0); MCHC 31.4 g/dL (31.0-37.0); MCV 93.5 fL (80.0-100.0); MEAN PLATELET VOLUME 10.3 fL (7.4-10.4); MONOCYTES 11.1 % (2-11); NEUTROPHIL ABS# 3.53 10x3/uL (1.56-6.13); NEUTROPHILS 62.4 % (40-80); PLATELET COUNT 269 10x3/uL (130-400); RBC 3.37 10x6/uL (4.00-5.40); RDW 15.8 % (11.5-14.5); WBC 5.7 10x3/uL (4.8-10.8)
--- NOTE | 2021-03-28 16:20 | NUR ---
OT NOTE: PT COMPLETED SUPINE TO SIT WITH MIN A. PT COMPLETED EOB SITTING WITH SBA-CGA. PT COMPLETED SIT TO STAND WITH CGA. REPORTED TO NURSING THAT PT BOUTS OF DIZZINESS WHEN STANDING. PT ATTEMPTED A FEW STEPS WITH MAX A. [phone] THANK YOU,LUCIO MONTALVO
[2021-03-28 20:13] VITALS: BP 115/39
[2021-03-29 00:06] VITALS: BP 137/35
--- NOTE | 2021-03-29 01:05 | MORECARE ---
CASE MANAGEMENT DISCHARGE SUMMARY PATIENT: JAMIE BELL UNIT: [id number] ADM DATE: 02/26/21 AGE: 70 : 48 SEX: F ROOM/BED: D.8005 AUTHOR: WILFRID,DOC PHYSICIAN: REFERRING PHYSICIAN: PASTORA SHORT DO DATE OF SERVICE: 03/29/21 Case Management Discharge Planning Summary COMMENTS ENTERED DATE: 03/29/21 1:03 CT COMMENT TYPE: Discharge Planning REVIEWER: Queenie Hester 03/27/21 KENDRA called and spoke with Mell at [place] regarding patient referral and she states that patient has clinically been accepted. KENDRA explained that patient will need dialysis MWF at [facility] but uncertain of chair time at this moment. Mell stated that they have an auth pending but still awaiting results. 03/28/21 KENDRA spoke with Megan at [facility] she stated that [employer] is requesting updates regarding PT what patient's prior level is v/s what her ability is now. CM faxed updates and awaiting determination. ENTERED DATE: 03/25/21 15:35 CT COMMENT TYPE: Discharge Planning REVIEWER: Josette Yang Faxed clinical documentation to [facility] ([phone]). Awaiting determination of acceptance. ENTERED DATE: 03/18/21 14:43 CT COMMENT TYPE: Discharge Planning REVIEWER: Isabel Valdez CM spoke with Kelley in inpatient rehab and they do not have a determination yet on appeal on Thursday. ENTERED DATE: 03/14/21 0:08 CT COMMENT TYPE: Discharge Planning REVIEWER: Queenie Kacie CM spoke with patient and she would like to go to inpatient rehab prior to discharge home. LULA completed for [facility] inpatient rehab. She does live alone and has a caregiver that comes in for a few hours a day to assist patient with adls and household need. She will have her daughter to transport her home upon discharge, CM will continue to follow and assist as needed with d/c planning / needs. Awaiting auth from insurance for rehab. DCP REVIEW SUMMARY ANTICIPATED D/C DATE: EXPECTED LOS : CASE STATUS: DCP Initiated INITIAL REVIEW: 02/26/2021 INITIAL REVIEWER: Queenie Hester FINAL DISCHARGE DISPOSITION: : FINAL REVIEWER: FINAL REVIEW DATE: DCP Focus Questions & Answers DCP Screen QUESTION: ANSWER High Risk Factors: : Hosp related to CHF, COPD, DM, End Stage Ds, CVA, CA DCP Evaluation QUESTION: ANSWER Patient's current cognitive status: : *Oriented to person, place, situation, time and present Patient's ability to cope with chronic illness : a. Adequate (0-3 ED visits in 6 mos., adequate financial resources, attends scheduled appts.) Patient gives permission to discuss discharge plans with: (name, relationship and number) : RANDA [phone], Family / Caregiver's ability to cope with chronic illness: : b. Minimal (occasionally not dependable to meet pt's. needs, can meet pt's. basic ADL's) Does the patient have the ability to pay for or attain post discharge needs / services? : Yes Functional screen assessment: : Unable to manage ADLs without immediate ongoing assistance Family / Caregiver's ability to cope with chronic illness: : a. Adequate (ability to meet patient's medical needs, ensures patient attends medical appts.) Physical Status: : Partial care dependence Is there a likelihood that the patient will require additional services to return to the preadmission environment? : Yes Living Arrangements: : Home Alone with Support Partial Dependence, assistance required for: : Bathing Results of this evaluation have been discussed with: : Patient Baseline cognitive status: : *Oriented to person, place, situation, time and present Preadmission facility can/cannot provide post hospital level of care needs: : Can - at higher level of care than preadmission Facility / Agency name and contact information from Question 3 (if applicable): : [facility] Medication Management: : Patient states can afford medications [facility] Does Patient have transportation to get home and to follow-up medical appointments when discharged from the hospital? : Yes Would patient like to participate in any Care Coordination programs (if applicable): : Not applicable Does the patient have electricity at home? : Yes Does the patient have running water in their house? : Yes Equipment in use: : Wheelchair Equipment in use: : Walker - Rolling Equipment in use: : Shower Chair Equipment in use: : Nebulizer Equipment in use: : Hospital Bed Equipment in use: : Home Oxygen with Nasal Cannula Equipment in use: : Bedside Commode Mental health screen: : No mental health history Resources / Services in place: : Private duty care Resources / Services in place: : Dialysis - home hemodialysis DCP Re-evaluation QUESTION: ANSWER Would patient like to participate in any Care Coordination programs (if applicable): : Not applicable PATIENT: JAMIE BELL ENCOUNTER: [id number] MEDICAL RECORD#: [id number] ADMISSION DATE: 02/26/2021 DISCHARGE DATE: ATTENDING MD: PASTORA PARSONS : AGE: 70 MARITAL STATUS: S DC PLAN ID: [id number] FACILITY: [facility] PRINTED ON: 03/29/21 1:05 CT All edits/amendments must be made on the electronic document DICTATION DATE: 03/29/21104 CAR MECHANIC: SUSY 03/29/21104 RPT#: [id number] DC DATE: STATUS: ADM IN [facility] [address] [place] [address] END OF REPORT
[2021-03-29 04:31] VITALS: BP 138/45
--- NOTE | 2021-03-29 07:10 | NUR ---
Lying in bed, awake/alert/oriented, T/R self ad bal, cont of B/B with BRPs with assist ad bal, denies pain/other discomfort at this time, call light/phone/water within reach, no s/s of acute distress observed.
--- NOTE | 2021-03-29 07:39 | MORECARE ---
CASE MANAGEMENT DISCHARGE SUMMARY PATIENT: JAMIE BELL UNIT: [id number] ADM DATE: 02/26/21 AGE: 70 : 48 SEX: F ROOM/BED: D.8555 AUTHOR: WILFRID,DOC PHYSICIAN: REFERRING PHYSICIAN: PASTORA SHORT DO DATE OF SERVICE: 03/29/21 Case Management Discharge Planning Summary COMMENTS ENTERED DATE: 03/29/21 7:30 CT COMMENT TYPE: Discharge Planning REVIEWER: Isabel Valdez CM called [facility] to check on status of referral. Will call back at [phone] when Otilia is available (active directory administrator). ENTERED DATE: 03/29/21 1:03 CT COMMENT TYPE: Discharge Planning REVIEWER: Queenie Hetser 03/27/21 KENDRA called and spoke with Mell at [facility] regarding patient referral and she states that patient has clinically been accepted. KENDRA explained that patient will need dialysis MWF at [facility] but uncertain of chair time at this moment. Mell stated that they have an auth pending but still awaiting results. 03/28/21 KNEDRA spoke with Megan at [facility] what patient's prior level is v/s what her ability is now. CM faxed updates and awaiting determination. ENTERED DATE: 03/25/21 15:35 CT COMMENT TYPE: Discharge Planning REVIEWER: Josette Yang Faxed clinical documentation to [facility] ([phone]). Awaiting determination of acceptance. ENTERED DATE: 03/18/21 14:43 CT COMMENT TYPE: Discharge Planning REVIEWER: Isabel Valdez CM spoke with Kelley in inpatient rehab and they do not have a determination yet on appeal on Thursday. ENTERED DATE: 03/14/21 0:08 CT COMMENT TYPE: Discharge Planning REVIEWER: Queenie Hester CM spoke with patient and she would like to go to inpatient rehab prior to discharge home. LULA completed for [facility] inpatient rehab. She does live alone and has a caregiver that comes in for a few hours a day to assist patient with adls and household need. She will have her daughter to transport her home upon discharge, CM will continue to follow and assist as needed with d/c planning / needs. Awaiting auth from insurance for rehab. DCP REVIEW SUMMARY ANTICIPATED D/C DATE: EXPECTED LOS : CASE STATUS: DCP Initiated INITIAL REVIEW: 02/26/2021 INITIAL REVIEWER: Queenie Hester FINAL DISCHARGE DISPOSITION: : FINAL REVIEWER: FINAL REVIEW DATE: DCP Focus Questions & Answers DCP Screen QUESTION: ANSWER High Risk Factors: : Hosp related to CHF, COPD, DM, End Stage Ds, CVA, CA DCP Evaluation QUESTION: ANSWER Patient's current cognitive status: : *Oriented to person, place, situation, time and present Patient's ability to cope with chronic illness : a. Adequate (0-3 ED visits in 6 mos., adequate financial resources, attends scheduled appts.) Patient gives permission to discuss discharge plans with: (name, relationship and number) : RANDA [phone], Family / Caregiver's ability to cope with chronic illness: : b. Minimal (occasionally not dependable to meet pt's. needs, can meet pt's. basic ADL's) Does the patient have the ability to pay for or attain post discharge needs / services? : Yes Functional screen assessment: : Unable to manage ADLs without immediate ongoing assistance Family / Caregiver's ability to cope with chronic illness: : a. Adequate (ability to meet patient's medical needs, ensures patient attends medical appts.) Physical Status: : Partial care dependence Is there a likelihood that the patient will require additional services to return to the preadmission environment? : Yes Living Arrangements: : Home Alone with Support Partial Dependence, assistance required for: : Bathing Results of this evaluation have been discussed with: : Patient Baseline cognitive status: : *Oriented to person, place, situation, time and present Preadmission facility can/cannot provide post hospital level of care needs: : Can - at higher level of care than preadmission Facility / Agency name and contact information from Question 3 (if applicable): : [facility] Medication Management: : Patient states can afford medications Pharm[facility] name(s): : [facility] Does Patient have transportation to get home and to follow-up medical appointments when discharged from the hospital? : Yes Would patient like to participate in any Care Coordination programs (if applicable): : Not applicable Does the patient have electricity at home? : Yes Does the patient have running water in their house? : Yes Equipment in use: : Bedside Commode Equipment in use: : Home Oxygen with Nasal Cannula Equipment in use: : Hospital Bed Equipment in use: : Nebulizer Equipment in use: : Shower Chair Equipment in use: : Walker - Rolling Equipment in use: : Wheelchair Mental health screen: : No mental health history Resources / Services in place: : Dialysis - home hemodialysis Resources / Services in place: : Private duty care DCP Re-evaluation QUESTION: ANSWER Would patient like to participate in any Care Coordination programs (if applicable): : Not applicable PATIENT: JAMIE BELL ENCOUNTER: [id number] MEDICAL RECORD#: [id number] ADMISSION DATE: 02/26/2021 DISCHARGE DATE: ATTENDING MD: PASTORA PARSONS : AGE: 70 MARITAL STATUS: S DC PLAN ID: [id number] FACILITY: [facility] PRINTED ON: 03/29/21 7:39 CT All edits/amendments must be made on the electronic document DICTATION DATE: 03/29/21738 STORAGE MANAGEMENT CONSULTANT: SUSY 03/29/21738 RPT#: [id number] DC DATE: STATUS: ADM IN [facility] [address] [place] [address] END OF REPORT
--- NOTE | 2021-03-29 09:09 | MORECARE ---
CASE MANAGEMENT DISCHARGE SUMMARY PATIENT: JAMIE BELL UNIT: [id number] ADM DATE: 02/26/21 AGE: 70 : 48 SEX: F ROOM/BED: D.3811 AUTHOR: WILFRID,DOC PHYSICIAN: REFERRING PHYSICIAN: PASTORA SHORT DO DATE OF SERVICE: 03/29/21 Case Management Discharge Planning Summary COMMENTS ENTERED DATE: 03/29/21 8:58 CT COMMENT TYPE: Discharge Planning REVIEWER: Isabel Valdez CM spoke with Taina with [facility] at [phone]. Taina states she is working on getting patient's authorization for skilled today. Taina states "we had a mix up in our system and shows she was discharged." I informed her that patient has been waiting at least 2 weeks to get authorization for rehab, that she has been ready for discharge. Taina assures me it will be authorized today. I will phone Taina back this afternoon if I don't hear anything. ENTERED DATE: 03/29/21 7:30 CT COMMENT TYPE: Discharge Planning REVIEWER: Isabel Valdez CM called [facility] to check on status of referral. Will call back at 0800 when Otilia is available (director social). ENTERED DATE: 03/29/21 1:03 CT COMMENT TYPE: Discharge Planning REVIEWER: Queenie Hester 03/27/21 KENDRA called and spoke with Mell at [facility] regarding patient referral and she states that patient has clinically been accepted. KENDRA explained that patient will need dialysis MWF at [facility] but uncertain of chair time at this moment. Mell stated that they have an auth pending but still awaiting results. 03/28/21 KENDRA spoke with Megan at [facility] she stated that [facility] is requesting updates regarding PT what patient's prior level is v/s what her ability is now. KENDRA faxed updates and awaiting determination. ENTERED DATE: 03/25/21 15:35 CT COMMENT TYPE: Discharge Planning REVIEWER: Josette Yang Faxed clinical documentation to [facility] ([phone]). Awaiting determination of acceptance. ENTERED DATE: 03/18/21 14:43 CT COMMENT TYPE: Discharge Planning REVIEWER: Isabel Valdez CM spoke with Kelley in inpatient rehab and they do not have a determination yet on appeal on Thursday. ENTERED DATE: 03/14/21 0:08 CT COMMENT TYPE: Discharge Planning REVIEWER: Queenie Hester CM spoke with patient and she would like to go to inpatient rehab prior to discharge home. LULA completed for [facility] inpatient rehab. She does live alone and has a caregiver that comes in for a few hours a day to assist patient with adls and household need. She will have her daughter to transport her home upon discharge, CM will continue to follow and assist as needed with d/c planning / needs. Awaiting auth from insurance for rehab. DCP REVIEW SUMMARY ANTICIPATED D/C DATE: EXPECTED LOS : CASE STATUS: DCP Initiated INITIAL REVIEW: 02/26/2021 INITIAL REVIEWER: Queenie Hester FINAL DISCHARGE DISPOSITION: : FINAL REVIEWER: FINAL REVIEW DATE: DCP Focus Questions & Answers DCP Screen QUESTION: ANSWER High Risk Factors: : Hosp related to CHF, COPD, DM, End Stage Ds, CVA, CA DCP Evaluation QUESTION: ANSWER Patient's current cognitive status: : *Oriented to person, place, situation, time and present Patient's ability to cope with chronic illness : a. Adequate (0-3 ED visits in 6 mos., adequate financial resources, attends scheduled appts.) Patient gives permission to discuss discharge plans with: (name, relationship and number) : RANDA [phone], Family / Caregiver's ability to cope with chronic illness: : b. Minimal (occasionally not dependable to meet pt's. needs, can meet pt's. basic ADL's) Does the patient have the ability to pay for or attain post discharge needs / services? : Yes Functional screen assessment: : Unable to manage ADLs without immediate ongoing assistance Family / Caregiver's ability to cope with chronic illness: : a. Adequate (ability to meet patient's medical needs, ensures patient attends medical appts.) Physical Status: : Partial care dependence Is there a likelihood that the patient will require additional services to return to the preadmission environment? : Yes Living Arrangements: : Home Alone with Support Partial Dependence, assistance required for: : Bathing Results of this evaluation have been discussed with: : Patient Baseline cognitive status: : *Oriented to person, place, situation, time and present Preadmission facility can/cannot provide post hospital level of care needs: : Can - at higher level of care than preadmission Facility / Agency name and contact information from Question 3 (if applicable): : [facility] Medication Management: : Patient states can afford medications [facility] Does Patient have transportation to get home and to follow-up medical appointments when discharged from the hospital? : Yes Would patient like to participate in any Care Coordination programs (if applicable): : Not applicable Does the patient have electricity at home? : Yes Does the patient have running water in their house? : Yes Equipment in use: : Bedside Commode Equipment in use: : Home Oxygen with Nasal Cannula Equipment in use: : Hospital Bed Equipment in use: : Nebulizer Equipment in use: : Shower Chair Equipment in use: : Walker - Rolling Equipment in use: : Wheelchair Mental health screen: : No mental health history Resources / Services in place: : Dialysis - home hemodialysis Resources / Services in place: : Private duty care DCP Re-evaluation QUESTION: ANSWER Would patient like to participate in any Care Coordination programs (if applicable): : Not applicable PATIENT: JAMIE BELL ENCOUNTER: [id number] MEDICAL RECORD#: [id number] ADMISSION DATE: 02/26/2021 DISCHARGE DATE: ATTENDING MD: PASTORA PARSONS : AGE: 70 MARITAL STATUS: S DC PLAN ID: [id number] FACILITY: [facility] PRINTED ON: 03/29/21 9:09 CT All edits/amendments must be made on the electronic document DICTATION DATE: 03/29/21908 BOG WORKER: SUSY 03/29/21908 RPT#: [id number] DC DATE: STATUS: ADM IN [facility] [address] [place] [address] END OF REPORT
[2021-03-29 11:17] LABS: BASOPHILS 0.5 % (0-2); EOSINOPHILS 4.8 % (0-7); HEMATOCRIT 30.4 % (36.0-48.0); HEMOGLOBIN 9.7 g/dL (12-16); IMMATURE GRANULOCYTES 0.3 % (0-5); LYMPHOCYTE ABS# 1.63 10x3/uL (1.18-3.74); LYMPHOCYTES 25.2 % (15-50); MCH 29.7 pg (26.0-34.0); MCHC 31.9 g/dL (31.0-37.0); MEAN PLATELET VOLUME 10.1 fL (7.4-10.4); MONOCYTES 9.4 % (2-11); NEUTROPHIL ABS# 3.87 10x3/uL (1.56-6.13); NEUTROPHILS 59.8 % (40-80); PLATELET COUNT 236 10x3/uL (130-400); RBC 3.27 10x6/uL (4.00-5.40); RDW 15.2 % (11.5-14.5); WBC 6.5 10x3/uL (4.8-10.8)
[2021-03-29 11:29] LABS: ALBUMIN 2.7 g/dL (3.4-5.0); BILIRUBIN - TOTAL 0.51 mg/dL (0.2-1.3); CALCIUM 9.6 mg/dL (8.5-10.1); CARBON DIOXIDE 28.7 mmol/L (21.0-32.0); CREATININE - SERUM 4.4 mg/dL (0.6-1.3); MAGNESIUM - SERUM 1.9 mg/dL (1.8-2.4); PHOSPHOROUS 6.7 mg/dL (2.5-4.9); PROTEIN - SERUM 6.5 g/dL (6.4-8.2)
[2021-03-29 11:37] LABS: POTASSIUM - SERUM 3.7 mmol/L (3.5-5.1)
--- NOTE | 2021-03-29 15:03 | NUR ---
OT NOTE: PT COMPLETED SUPINE TO SIT WITH CGA-MIN A. PT COMPLETED SIT TO STAND WITH CGA-SBA. PT COMPLETED FACE AND HAND HYGIENE WITH SETUP. PT COMPLETED HAIR GROOMING WITH SETUP. PT DID WELL TODAY. [phone] LONNIE CACERES COTA
--- NOTE | 2021-03-29 16:31 | MORECARE ---
CASE MANAGEMENT DISCHARGE SUMMARY PATIENT: JAMIE BELL UNIT: [id number] ADM DATE: 02/26/21 AGE: 70 : 48 SEX: F ROOM/BED: D.5163 AUTHOR: WILFRID,DOC PHYSICIAN: REFERRING PHYSICIAN: PASTORA SHORT DO DATE OF SERVICE: 03/29/21 Case Management Discharge Planning Summary COMMENTS ENTERED DATE: 03/29/21 16:26 CT COMMENT TYPE: Discharge Planning REVIEWER: Isabel KAYE AT [facility] CALLED WITH [facility] FOR ADMISSION. SHE STATES THEY WILL PICK PATIENT UP TOMORROW. MIKKI STATES TO CALL IN AM AND FAX DC ORDERS. I HAVE FAXED UPDATES NOW. I INFORMED THE PATIENT AND SHE WILL NOTIFY HER DAUGHTER. IMM EXPLAINED, SIGNED, GIVEN AND COPY PLACED IN MR. ENTERED DATE: 03/29/21 8:58 CT COMMENT TYPE: Discharge Planning REVIEWER: Isabel Valdez CM spoke with Taina with [facility] at [phone]. Taina states she is working on getting patient's authorization for skilled today. Taina states "we had a mix up in our system and shows she was discharged." I informed her that patient has been waiting at least 2 weeks to get authorization for rehab, that she has been ready for discharge. Taina assures me it will be authorized today. I will phone Taina back this afternoon if I don't hear anything. ENTERED DATE: 03/29/21 7:30 CT COMMENT TYPE: Discharge Planning REVIEWER: Isabel Valdez CM called [facility] to check on status of referral. Will call back at 0800 when Mikki is available (clinical research director). ENTERED DATE: 03/29/21 1:03 CT COMMENT TYPE: Discharge Planning REVIEWER: Queenie Hester 03/27/21 KENDRA called and spoke with Mell at [facility] regarding patient referral and she states that patient has clinically been accepted. CM explained that patient will need dialysis MWF at [facility] but uncertain of chair time at this moment. Mell stated that they have an auth pending but still awaiting results. 03/28/21 KENDRA spoke with [facility] what patient's prior level is v/s what her ability is now. CM faxed updates and awaiting determination. ENTERED DATE: 03/25/21 15:35 CT COMMENT TYPE: Discharge Planning REVIEWER: Josette Yang Faxed clinical documentation to [facility] ([phone]). Awaiting determination of acceptance. ENTERED DATE: 03/18/21 14:43 CT COMMENT TYPE: Discharge Planning REVIEWER: Isabel Valdez CM spoke with Kelley in inpatient rehab and they do not have a determination yet on appeal on Thursday. ENTERED DATE: 03/14/21 0:08 CT COMMENT TYPE: Discharge Planning REVIEWER: Queenie Hester CM spoke with patient and she would like to go to inpatient rehab prior to discharge home. LULA completed for [facility] inpatient rehab. She does live alone and has a caregiver that comes in for a few hours a day to assist patient with adls and household need. She will have her daughter to transport her home upon discharge, CM will continue to follow and assist as needed with d/c planning / needs. Awaiting auth from insurance for rehab. DCP REVIEW SUMMARY ANTICIPATED D/C DATE: EXPECTED LOS : CASE STATUS: DCP Initiated INITIAL REVIEW: 02/26/2021 INITIAL REVIEWER: Queenie Hester FINAL DISCHARGE DISPOSITION: : FINAL REVIEWER: FINAL REVIEW DATE: DCP Focus Questions & Answers DCP Screen QUESTION: ANSWER High Risk Factors: : Hosp related to CHF, COPD, DM, End Stage Ds, CVA, CA DCP Evaluation QUESTION: ANSWER Patient's current cognitive status: : *Oriented to person, place, situation, time and present Patient's ability to cope with chronic illness : a. Adequate (0-3 ED visits in 6 mos., adequate financial resources, attends scheduled appts.) Patient gives permission to discuss discharge plans with: (name, relationship and number) : RANDA [phone], Family / Caregiver's ability to cope with chronic illness: : b. Minimal (occasionally not dependable to meet pt's. needs, can meet pt's. basic ADL's) Does the patient have the ability to pay for or attain post discharge needs / services? : Yes Functional screen assessment: : Unable to manage ADLs without immediate ongoing assistance Family / Caregiver's ability to cope with chronic illness: : a. Adequate (ability to meet patient's medical needs, ensures patient attends medical appts.) Physical Status: : Partial care dependence Is there a likelihood that the patient will require additional services to return to the preadmission environment? : Yes Living Arrangements: : Home Alone with Support Partial Dependence, assistance required for: : Bathing Results of this evaluation have been discussed with: : Patient Baseline cognitive status: : *Oriented to person, place, situation, time and present Preadmission facility can/cannot provide post hospital level of care needs: : Can - at higher level of care than preadmission Facility / Agency name and contact information from Question 3 (if applicable): : [facility] Medication Management: : Patient states can afford medications [facility] name([facility] : [facility] Does Patient have transportation to get home and to follow-up medical appointments when discharged from the hospital? : Yes Would patient like to participate in any Care Coordination programs (if applicable): : Not applicable Does the patient have electricity at home? : Yes Does the patient have running water in their house? : Yes Equipment in use: : Bedside Commode Equipment in use: : Home Oxygen with Nasal Cannula Equipment in use: : Hospital Bed Equipment in use: : Nebulizer Equipment in use: : Shower Chair Equipment in use: : Walker - Rolling Equipment in use: : Wheelchair Mental health screen: : No mental health history Resources / Services in place: : Dialysis - home hemodialysis Resources / Services in place: : Private duty care DCP Re-evaluation QUESTION: ANSWER Would patient like to participate in any Care Coordination programs (if applicable): : Not applicable PATIENT: JAMIE BELL ENCOUNTER: [id number] MEDICAL RECORD#: [id number] ADMISSION DATE: 02/26/2021 DISCHARGE DATE: ATTENDING MD: PASTORA PARSONS : AGE: 70 MARITAL STATUS: S DC PLAN ID: [id number] FACILITY: [facility] PRINTED ON: 03/29/21 16:30 CT All edits/amendments must be made on the electronic document DICTATION DATE: 03/29/211629 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
--- NOTE | 2021-03-29 19:27 | NUR ---
RECEIVED REPORT, WILL ASSUME CARE OF PT, SLEEPING, NO DISTRESS NOTICED AT THIS TIME, BED IS LOW, SRX2, CALL LIGHT IN REACH, WILL CONTINUE PLAN OF CARE
[2021-03-29 20:37] VITALS: BP 113/36
[2021-03-30 00:24] VITALS: BP 147/59
[2021-03-30 05:18] VITALS: BP 176/57
[2021-03-30 08:00] VITALS: BP 142/46
[2021-03-30] MEDS ORDERED: LISINOPRIL40 MG PO (08:51)
[2021-03-30] MEDS ORDERED: COREG6.25 MG PO (08:51)
[2021-03-30] MEDS ORDERED: PLAVIX75 MG PO (08:51)
[2021-03-30] MEDS ORDERED: RENVELA2.4 GM PO (08:52)
--- NOTE | 2021-03-30 09:30 | NUR ---
PATIENT IS LETHARGIC BUT ALERT TO TOUCH, RESP EVEN AND NON LABORED, NO S/S OF DISTRESS, MEDICATIONS ADMINSITERED CRUSHED WITH NO COMPLICATIONS, PATIENTS SON AND GRANDSON NOTIFIED ABOUT POSSIBLY DISCHARGE ON THURSDAY, NO FURTHER NEEDS AT THIS TIME, GABRIEL CHAPMAN
--- NOTE | 2021-03-30 09:47 | NUR ---
PATIENT AAOX4 SITTING HIGH FOWLERS EATING BREAKFAST, ALL MEDS ON HOLD FOR DIALYSIS AND PER PATIENTS REQUEST, AFTER EATING PATIENT IS GOING TO DIALYSIS, NO FURTHER NEEDS AT THIS TIME, GABRIEL CHAPMAN
--- NOTE | 2021-04-01 14:50 | MORECARE ---
CASE MANAGEMENT DISCHARGE SUMMARY PATIENT: JAMIE BELL UNIT: [id number] ADM DATE: 02/26/21 AGE: 70 : 48 SEX: F ROOM/BED: D.3696 AUTHOR: WILFRID,DOC PHYSICIAN: REFERRING PHYSICIAN: PASTORA SHORT DO DATE OF SERVICE: 04/01/21 Case Management Discharge Planning Summary COMMENTS ENTERED DATE: 03/29/21 16:26 CT COMMENT TYPE: Discharge Planning REVIEWER: Isabel KAYE AT [facility] CALLED WITH [facility] FOR ADMISSION. SHE STATES THEY WILL PICK PATIENT UP TOMORROW. MIKKI STATES TO CALL IN AM AND FAX DC ORDERS. I HAVE FAXED UPDATES NOW. I INFORMED THE PATIENT AND SHE WILL NOTIFY HER DAUGHTER. IMM EXPLAINED, SIGNED, GIVEN AND COPY PLACED IN MR. ENTERED DATE: 03/29/21 8:58 CT COMMENT TYPE: Discharge Planning REVIEWER: Isabel Valdez CM spoke with Taina with [facility] at [phone]. Taina states she is working on getting patient's authorization for skilled today. Taina states "we had a mix up in our system and shows she was discharged." I informed her that patient has been waiting at least 2 weeks to get authorization for rehab, that she has been ready for discharge. Taina assures me it will be authorized today. I will phone Taina back this afternoon if I don't hear anything. ENTERED DATE: 03/29/21 7:30 CT COMMENT TYPE: Discharge Planning REVIEWER: Isabel Valdez CM called [facility] to check on status of referral. Will call back at 0800 when Mikki is available (director business development). ENTERED DATE: 03/29/21 1:03 CT COMMENT TYPE: Discharge Planning REVIEWER: Queenie Hester 03/27/21 KENDRA called and spoke with Mell at [facility] regarding patient referral and she states that patient has clinically been accepted. CM explained that patient will need dialysis MWF at [facility] but uncertain of chair time at this moment. Mell stated that they have an auth pending but still awaiting results. 03/28/21 KENDRA spoke with Megan at [facility] what patient's prior level is v/s what her ability is now. CM faxed updates and awaiting determination. ENTERED DATE: 03/25/21 15:35 CT COMMENT TYPE: Discharge Planning REVIEWER: Josette Yang Faxed clinical documentation to [facility] ([phone]). Awaiting determination of acceptance. ENTERED DATE: 03/18/21 14:43 CT COMMENT TYPE: Discharge Planning REVIEWER: Isabel Valdez CM spoke with [facility] in inpatient rehab and they do not have a determination yet on appeal on Thursday. ENTERED DATE: 03/14/21 0:08 CT COMMENT TYPE: Discharge Planning REVIEWER: Queenie Hester CM spoke with patient and she would like to go to inpatient rehab prior to discharge home. LULA completed for [facility] inpatient rehab. She does live alone and has a caregiver that comes in for a few hours a day to assist patient with adls and household need. She will have her daughter to transport her home upon discharge, CM will continue to follow and assist as needed with d/c planning / needs. Awaiting auth from insurance for rehab. DCP REVIEW SUMMARY ANTICIPATED D/C DATE: EXPECTED LOS : CASE STATUS: DCP Initiated INITIAL REVIEW: 02/26/2021 INITIAL REVIEWER: Queenie Hester FINAL DISCHARGE DISPOSITION: : FINAL REVIEWER: FINAL REVIEW DATE: DCP Focus Questions & Answers DCP Screen QUESTION: ANSWER High Risk Factors: : Hosp related to CHF, COPD, DM, End Stage Ds, CVA, CA DCP Evaluation QUESTION: ANSWER Family / Caregiver's ability to cope with chronic illness: : b. Minimal (occasionally not dependable to meet pt's. needs, can meet pt's. basic ADL's) Patient's current cognitive status: : *Oriented to person, place, situation, time and present Patient gives permission to discuss discharge plans with: (name, relationship and number) : RANDA [id number]-[id number]-[phone], Patient's ability to cope with chronic illness : a. Adequate (0-3 ED visits in 6 mos., adequate financial resources, attends scheduled appts.) Does the patient have the ability to pay for or attain post discharge needs / services? : Yes Functional screen assessment: : Unable to manage ADLs without immediate ongoing assistance Family / Caregiver's ability to cope with chronic illness: : a. Adequate (ability to meet patient's medical needs, ensures patient attends medical appts.) Physical Status: : Partial care dependence Is there a likelihood that the patient will require additional services to return to the preadmission environment? : Yes Living Arrangements: : Home Alone with Support Partial Dependence, assistance required for: : Bathing Results of this evaluation have been discussed with: : Patient Baseline cognitive status: : *Oriented to person, place, situation, time and present Preadmission facility can/cannot provide post hospital level of care needs: : Can - at higher level of care than preadmission Facility / Agency name and contact information from Question 3 (if applicable): : [facility] Medication Management: : Patient states can afford medications Pharm[facility] name(s[facility] : [facility] Does Patient have transportation to get home and to follow-up medical appointments when discharged from the hospital? : Yes Would patient like to participate in any Care Coordination programs (if applicable): : Not applicable Does the patient have electricity at home? : Yes Does the patient have running water in their house? : Yes Equipment in use: : Wheelchair Equipment in use: : Walker - Rolling Equipment in use: : Shower Chair Equipment in use: : Nebulizer Equipment in use: : Hospital Bed Equipment in use: : Home Oxygen with Nasal Cannula Equipment in use: : Bedside Commode Mental health screen: : No mental health history Resources / Services in place: : Private duty care Resources / Services in place: : Dialysis - home hemodialysis DCP Re-evaluation QUESTION: ANSWER Would patient like to participate in any Care Coordination programs (if applicable): : Not applicable PATIENT: JAMIE BELL ENCOUNTER: [id number] MEDICAL RECORD#: [id number] ADMISSION DATE: 02/26/2021 DISCHARGE DATE: 03/30/2021 ATTENDING MD: PASTORA PARSONS : AGE: 70 MARITAL STATUS: S DC PLAN ID: [id number] FACILITY: [facility] PRINTED ON: 04/01/21 14:50 CT All edits/amendments must be made on the electronic document DICTATION DATE: 04/01/211449 GEOTECHNICAL OPERATING ENGINEER: SUSY 04/01/211449 RPT#: [id number] DC DATE:03/30/21 STATUS: DIS IN [facility] [address] [place] [address] END OF REPORT
== END 2021-03-30 16:47 | DRG 233 ==
LOC: D.ER 23:44 → D.M2 02-26 01:48 → OBSVTIME 02-26 01:49 → D.CVICU 02-26 17:13 → D.M2 02-26 17:13 → D.ICU 02-26 17:13 → D.CVICU 02-28 20:32 → D.ICU 03-04 18:25 → D.M2 03-09 19:12
PROVIDERS: Emergency Medicine; Family Medicine; Internal Medicine; Internal Medicine Interventional Cardiology; Internal Medicine Nephrology; Thoracic Surgery (Cardiothoracic Vascular Surgery); ADMIT Family Medicine; ATTEND Family Medicine
PROC: B2151ZZ Fluoroscopy of Left Heart using Low Osmolar Contrast (ICD-10-PCS; 2021-02-26)
PROC: 4A023N7 Measurement of Cardiac Sampling and Pressure, Left Heart, Percutaneous Approach (ICD-10-PCS; 2021-02-26)
PROC: B2111ZZ Fluoroscopy of Multiple Coronary Arteries using Low Osmolar Contrast (ICD-10-PCS; principal; 2021-02-26 15:30)
PROC: 5A1D70Z Performance of Urinary Filtration, Intermittent, Less than 6 Hours Per Day (ICD-10-PCS; 2021-02-27)
PROC: 0210099 Bypass Coronary Artery, One Artery from Left Internal Mammary with Autologous Venous Tissue, Open Approach (ICD-10-PCS; 2021-03-01)
PROC: 021109W Bypass Coronary Artery, Two Arteries from Aorta with Autologous Venous Tissue, Open Approach (ICD-10-PCS; 2021-03-01)
DX: I21.4 Non-ST elevation (NSTEMI) myocardial infarction (principal); N18.6 End stage renal disease; I13.2 Hypertensive heart and chronic kidney disease with heart failure and with stage 5 chronic kidney disease, or end stage renal disease; E87.1 Hypo-osmolality and hyponatremia; I50.32 Chronic diastolic (congestive) heart failure; T82.855A Stenosis of coronary artery stent, initial encounter; Z68.41 Body mass index [BMI] 40.0-44.9, adult; I25.110 Atherosclerotic heart disease of native coronary artery with unstable angina pectoris; E66.01 Morbid (severe) obesity due to excess calories; Z99.2 Dependence on renal dialysis; F41.8 Other specified anxiety disorders; D63.1 Anemia in chronic kidney disease; J44.9 Chronic obstructive pulmonary disease, unspecified; K21.9 Gastro-esophageal reflux disease without esophagitis; E78.5 Hyperlipidemia, unspecified; G47.33 Obstructive sleep apnea (adult) (pediatric); E87.6 Hypokalemia; Y83.9 Surgical procedure, unspecified as the cause of abnormal reaction of the patient, or of later complication, without mention of misadventure at the time of the procedure; Z86.73 Personal history of transient ischemic attack (TIA), and cerebral infarction without residual deficits